=== PATIENT | female | born 1940 | race Caucasian/White ===

== ENCOUNTER 2017-05-27 06:02 | Emergency (ER) | payer OTHER ==
[2017-05-27] MEDS ORDERED: ALBUTEROL 2.5 MG/3 ML NEB SOL ONE (06:50)
[2017-05-27] MEDS ORDERED: METHYLPREDNISOLONE 125 MG INJ ONE (06:50)
[2017-05-27] MEDS ORDERED: IPRATROPIUM BROM 0.5MG/2.5ML ONE (06:51)
[2017-05-27 07:46] LABS: Absolute Lymphocytes (CBC) 2.2 K/uL (0.7-4.9); Absolute Monocytes 0.7 K/uL (0.1-1.3); Absolute Neutrophil 4.9 K/uL (1.8-8.0); Basophils % 0.7 % (0-1.3); Eosinophils % 2.5 % (0-4.4); Hematocrit 40.6 % (36.0-45.0); Lymphocytes % 26.9 % (15.3-44.8); MCH 27.1 pg (27.0-35.0); MCV 82.4 fL (80-100); MPV 9.7 fL (7.6-11.3); Monocytes % 9.3 % (3.3-12.3); RBC Red Blood Cell Count 4.93 M/uL (3.86-4.86)
[2017-05-27 07:49] LABS: Potassium 3.7 mEq/L (3.6-5.0)
--- NOTE | 2017-05-27 09:12 | RAD REPORT ---
EXAM DESCRIPTION: RAD - Chest Pa And Lat (2 Views) - 05/27/2017 7:00 am CLINICAL HISTORY: Cough, shortness of breath. COMPARISON: 04/24/2017 FINDINGS: The lungs are clear. The heart is mildly prominent in size. No displaced fractures. IMPRESSION: No acute or concerning finding suspected.
--- NOTE | 2017-05-27 09:18 | EDPHYS ---
Physician Documentation [facility] Name: Francine Lemons Age: 76 yrs Sex: Female : 1940 Arrival Date: 05/27/2017 Time: 06:07 Bed 14 Private MD: ED Physician Santiago Suarez HPI: 05/27 06:45 This 76 yrs old Female presents to ER via Ambulatory with complaints of jr8 Non-Productive Cough, Breathing Difficulty. 06:45 The patient or guardian reports cough, that is intermittent, described as moderate, jr8 with no sputum, difficulty breathing. Onset: The symptoms/episode began/occurred acutely, today. Severity of symptoms: At their worst the symptoms were moderate, in the emergency department the symptoms are unchanged. Modifying factors: The symptoms are alleviated by nothing, the symptoms are aggravated by nothing. Associated signs and symptoms: The patient has no apparent associated signs or symptoms. It is unknown whether or not the patient has had similar symptoms in the past. The patient has not recently seen a physician. Historical: - Allergies: 06:41 Azithromycin; jd3 06:41 hydrocodone bitartrate (bulk); jd3 06:41 Iodine; jd3 06:41 Vicodin; jd3 - PMHx: 06:41 Anxiety; CHF; Chronic pain; COPD; Diabetes - IDDM; High Cholesterol; Hypertension; jd3 lymphedema; stasis neuropathy; - PSHx: 06:41 Hysterectomy; Tonsillectomy; Appendectomy; DENTAL SURGERY; Hernia repair; jd3 - Immunization history:: Adult Immunizations up to date, Pneumococcal vaccine is up to date, Flu vaccine is up to date. - Social history:: Smoking status: Patient/guardian denies using tobacco, the patient reports quitting approximately 40 years ago. ROS: 06:45 Eyes: Negative for injury, pain, redness, and discharge, ENT: Negative for injury, jr8 pain, and discharge, Neck: Negative for injury, pain, and swelling, Cardiovascular: Negative for chest pain, palpitations, and edema, Abdomen/GI: Negative for abdominal pain, nausea, vomiting, diarrhea, and constipation, Back: Negative for injury and pain, MS/Extremity: Negative for injury and deformity, Skin: Negative for injury, rash, and discoloration, Neuro: Negative for headache, weakness, numbness, tingling, and seizure. 06:45 Respiratory: Positive for cough, shortness of breath, Negative for hemoptysis, orthopnea, pleurisy, wheezing. Exam: 06:45 Eyes: Pupils equal round and reactive to light, extra-ocular motions intact. Lids and jr8 lashes normal. Conjunctiva and sclera are non-icteric and not injected. Cornea within normal limits. Periorbital areas with no swelling, redness, or edema. ENT: Nares patent. No nasal discharge, no septal abnormalities noted. Tympanic membranes are normal and external auditory canals are clear. Oropharynx with no redness, swelling, or masses, exudates, or evidence of obstruction, uvula midline. Mucous membranes moist. Neck: Trachea midline, no thyromegaly or masses palpated, and no cervical lymphadenopathy. Supple, full range of motion without nuchal rigidity, or vertebral point tenderness. No Meningismus. Cardiovascular: Regular rate and rhythm with a normal S1 and S2. No gallops, murmurs, or rubs. Normal PMI, no JVD. No pulse deficits. Respiratory: Lungs have equal breath sounds bilaterally, clear to auscultation and percussion. No rales, rhonchi or wheezes noted. No increased work of breathing, no retractions or nasal flaring. Abdomen/GI: Soft, non-tender, with normal bowel sounds. No distension or tympany. No guarding or rebound. No evidence of tenderness throughout. Back: No spinal tenderness. No costovertebral tenderness. Full range of motion. Skin: Warm, dry with normal turgor. Normal color with no rashes, no lesions, and no evidence of cellulitis. MS/ Extremity: Pulses equal, no cyanosis. Neurovascular intact. Full, normal range of motion. Neuro: Awake and alert, GCS 15, oriented to person, place, time, and situation. Cranial nerves II-XII grossly intact. Motor strength 5/5 in all extremities. Sensory grossly intact. Cerebellar exam normal. Normal gait. Vital Signs: 06:41 BP 130 / 67; Pulse 65; Resp 19 S; Temp 98.2(O); Pulse Ox 96% on R/A; Weight 108.86 kg jd3 (R); Height 5 ft. 3 in. (160.02 cm) (R); Pain 0/10; 07:47 BP 135 / 70; Pulse 66; Resp 18; Pulse Ox 97% on Nebulizer Mask; 09:27 BP 135 / 68; Pulse 65; Resp 18; Pulse Ox 97% on R/A; hj 06:41 Body Mass Index 42.51 (108.86 kg, 160.02 cm) jd3 MDM: 06:15 Patient medically screened. [facility] 09:16 Data reviewed: vital signs, nurses notes, lab test result(s), radiologic studies, plain jr8 films, and as a result, I will discharge patient. Data interpreted: Pulse oximetry: on room air is 97 %. Interpretation: normal. Counseling: I had a detailed discussion with the patient and/or guardian regarding: the historical points, exam findings, and any diagnostic results supporting the discharge/admit diagnosis, lab results, radiology results, the need for outpatient follow up, a family practitioner, to return to the emergency department if symptoms worsen or persist or if there are any questions or concerns that arise at home. Response to treatment: the patient's symptoms have mildly improved after treatment. 05/27 06:38 Order name: CBC with Diff; Complete Time: 08:15 [facility] 05/27 06:38 Order name: Basic Metabolic Panel; Complete Time: 07:54 8 05/27 06:38 Order name: XRAY Chest Pa And Lat (2 Views); Complete Time: 09:14 [facility] 05/27 07:34 Order name: Urine Dipstick--Ancillary (enter results) [facility] 05/27 06:38 Order name: IV; Complete Time: 07:20 [facility] Administered Medications: 07:00 Drug: Albuterol - atroVENT (3:1) (2.5 mg - 0.5 mg) 3 ml Route: Nebulizer; 07:25 Follow up: Response: No adverse reaction 07:00 Drug: SOLU-Medrol 125 mg Route: IVP; Site: right forearm; 07:25 Follow up: Response: No adverse reaction Disposition: 05/27/17 09:17 Discharged to Home. Impression: Cough. - Condition is Stable. - Discharge Instructions: Cough, Adult. - Prescriptions for PROMETHAZINE/DEXTROMETHORPHAN - take 5 milliliter by ORAL route every 6 hours As needed Max 30ml/24h; 120 milliliter. - Medication Reconciliation Form, Thank You Letter, Antibiotic Education, Prescription Opioid Use form. - Follow up: Private Physician; When: 2 - 3 days; Reason: Recheck today's complaints, Continuance of care, Re-evaluation by your physician. - Problem is new. - Symptoms have improved. Addendum: 05/28/2017 19:02 Co-signature as Attending Physician, Santiago Suarez MD I agree with the assessment and c dozier plan of care. Signatures: Dispatcher [employer] EDMI Santiago Suarez MD MD cha Roszak, Josh, PA PA jr8 Juvenal Rodriguez RN RN Raimundo Delgadillo RN RN jd3
--- NOTE | 2017-05-27 09:18 | ER ---
Nurse's Notes [facility] Name: Frnacine Lemons Age: 76 yrs Sex: Female : 1940 Arrival Date: 05/27/2017 Time: 06:07 Bed 14 Private MD: Diagnosis: Cough Presentation: 05/27 06:38 Presenting complaint: Patient states: "I'm having a non-productive, dry cough with jd3 shortness of breath". Transition of care: patient was not received from another setting of care. Onset of symptoms was May 27, 2017. Care prior to arrival: None. 06:38 Method Of Arrival: Ambulatory jd3 06:38 Acuity: AURELIO 3 jd3 06:43 Mechanism of Injury: No Mechanism of Injury. jd3 Triage Assessment: 06:43 Respiratory: Onset: The symptoms/episode began/occurred this morning, the patient has jd3 mild shortness of breath. Historical: - Allergies: 06:41 Azithromycin; jd3 06:41 hydrocodone bitartrate (bulk); jd3 06:41 Iodine; jd3 06:41 Vicodin; jd3 - PMHx: 06:41 Anxiety; CHF; Chronic pain; COPD; Diabetes - IDDM; High Cholesterol; Hypertension; jd3 lymphedema; stasis neuropathy; - PSHx: 06:41 Hysterectomy; Tonsillectomy; Appendectomy; DENTAL SURGERY; Hernia repair; jd3 - Immunization history:: Adult Immunizations up to date, Pneumococcal vaccine is up to date, Flu vaccine is up to date. - Social history:: Smoking status: Patient/guardian denies using tobacco, the patient reports quitting approximately 40 years ago. Screenin:42 Abuse screen: Denies threats or abuse. Nutritional screening: No deficits noted. jd3 Tuberculosis screening: No symptoms or risk factors identified. Fall Risk None identified. Assessment: 06:25 General: Appears in no apparent distress. uncomfortable, Behavior is calm, cooperative, jd3 appropriate for age. Pain: Denies pain. Neuro: Level of Consciousness is awake, alert, obeys commands, Oriented to person, place, time, situation. Cardiovascular: Heart tones S1 S2 present Capillary refill < 3 seconds Patient's skin is warm and dry. Respiratory: Reports cough that is non-productive, dry, persistent Airway is patent Respiratory effort is even, unlabored, Respiratory pattern is regular, symmetrical, Breath sounds are clear bilaterally. GI: Abdomen is round Patient currently denies abdominal pain, diarrhea, nausea, vomiting. : No signs and/or symptoms were reported regarding the genitourinary system. EENT: No signs and/or symptoms were reported regarding the EENT system. Derm: Skin is intact, Skin is dry, Skin is normal, Skin temperature is warm. Musculoskeletal: Circulation, motion, and sensation intact. Range of motion: intact in all extremities. 07:00 General: Appears in no apparent distress. uncomfortable, obese, Behavior is calm, hj cooperative, appropriate for age. Pain: Denies pain. Neuro: Level of Consciousness is awake, alert, obeys commands, Oriented to person, place, time, situation, Appropriate for age. Cardiovascular: Heart tones S1 S2 present Capillary refill < 3 seconds Patient's skin is warm and dry. Respiratory: Reports cough that is non-productive, persistent Airway is patent Respiratory effort is even, unlabored, Respiratory pattern is regular, symmetrical, GI: Abdomen is non-distended, obese. : No signs and/or symptoms were reported regarding the genitourinary system. EENT: No signs and/or symptoms were reported regarding the EENT system. Derm: No signs and/or symptoms reported regarding the dermatologic system. Musculoskeletal: No signs and/or symptoms reported regarding the musculoskeletal system. 07:46 Reassessment: on breathing tx;. hj Vital Signs: 06:41 BP 130 / 67; Pulse 65; Resp 19 S; Temp 98.2(O); Pulse Ox 96% on R/A; Weight 108.86 kg jd3 (R); Height 5 ft. 3 in. (160.02 cm) (R); Pain 0/10; 07:47 BP 135 / 70; Pulse 66; Resp 18; Pulse Ox 97% on Nebulizer Mask; hj 09:27 BP 135 / 68; Pulse 65; Resp 18; Pulse Ox 97% on R/A; hj 06:41 Body Mass Index 42.51 (108.86 kg, 160.02 cm) jd3 ED Course: 06:07 Patient arrived in ED. do 06:14 Fede Garza PA is PHCP. jr8 06:15 Santiago Suarez MD is Attending Physician. jr8 06:25 Raimundo Delgadillo RN is Primary Nurse. jd3 06:39 Triage completed. jd3 06:42 Arm band placed on. jd3 06:42 Patient has correct armband on for positive identification. Bed in low position. Call jd3 light in reach. 06:58 Patient moved to radiology via wheelchair. kw 06:58 X-ray completed. Patient tolerated procedure well. kw 06:58 Patient moved back from radiology. kw 06:59 XRAY Chest Pa And Lat (2 Views) In Process Unspecified. EDMS 07:05 Report given to Juvenal DAIGLE. jd3 09:26 No provider procedures requiring assistance completed. IV discontinued, intact, hj bleeding controlled, No redness/swelling at site. Pressure dressing applied. Administered Medications: 07:00 Drug: Albuterol - atroVENT (3:1) (2.5 mg - 0.5 mg) 3 ml Route: Nebulizer; hj 07:25 Follow up: Response: No adverse reaction hj 07:00 Drug: SOLU-Medrol 125 mg Route: IVP; Site: right forearm; hj 07:25 Follow up: Response: No adverse reaction hj Outcome: 09:17 Discharge ordered by . mary 09:27 Discharged to home ambulatory. hj 09:27 Condition: stable 09:27 Discharge instructions given to patient, Instructed on discharge instructions, follow up and referral plans. medication usage, Demonstrated understanding of instructions, follow-up care, medications, Prescriptions given X 1. 09:32 Patient left the ED. hj Signatures: Dispatcher [employer] EDCT Cony Hernandez Josh, PA PA jrJuvenal Murray RN RN hj Ogletree, Danielle do Davies, Jonathon, RN RN jd3 Corrections: (The following items were deleted from the chart) 06:44 06:25 Respiratory: Reports cough that is non-productive, dry, persistent since 05/24/17 jd3 Airway is patent Respiratory effort is even, unlabored, Respiratory pattern is regular, symmetrical, Breath sounds are clear bilaterally. jd3
[2017-05-27 09:37] VITALS: TEMP 98.2
[2017-05-27 09:38] VITALS: O2SAT 97
[2017-05-27 09:39] VITALS: BP 135/68
[2017-05-27 10:01] LABS: Urine Blood NEGATIVE (NEG); Urine Glucose 1+ (NEG); Urine Protein NEGATIVE (NEG)
== END 2017-05-27 09:32 | disposition home or self-care (01) ==
LOC: ER 06:02
DX: R05 Cough (principal); I10 Essential (primary) hypertension; I50.9 Heart failure, unspecified; J44.9 Chronic obstructive pulmonary disease, unspecified; Z88.3 Allergy status to other anti-infective agents; Z88.5 Allergy status to narcotic agent; Z91.048 Other nonmedicinal substance allergy status
CPT/HCPCS: 36415; 71046; 80048; 81003; 85025; 94640; 96374; 99284; J2930

== ENCOUNTER 2017-10-31 18:13 | Observation (INO) | payer OTHER ==
[2017-10-31] MEDS ORDERED: ALBUTEROL 2.5 MG/3 ML NEB SOL ONE (18:41)
[2017-10-31] MEDS ORDERED: IPRATROPIUM BROM 0.5MG/2.5ML ONE (18:41)
[2017-10-31] MEDS ORDERED: NA CHLORIDE 0.9% 1,000 ML ONE ×2 (18:41→19:50)
[2017-10-31] MEDS ORDERED: Levofloxacin500mg IV 500 MG/100 ML BAG IV ONE (18:55)
[2017-10-31] MEDS ORDERED: METHYLPREDNISOLONE 125 MG INJ ONE (18:55)
[2017-10-31 18:59] LABS: Absolute Lymphocytes (CBC) 2.5 K/uL (0.7-4.9); Absolute Monocytes 0.7 K/uL (0.1-1.3); Absolute Neutrophil 4.9 K/uL (1.8-8.0); Basophils % 1.2 % (0-1.3); Eosinophils % 3.5 % (0-4.4); Hematocrit 41.5 % (36.0-45.0); Lymphocytes % 29.1 % (15.3-44.8); MCH 28.2 pg (27.0-35.0); MCV 82.4 fL (80-100); MPV 9.4 fL (7.6-11.3); Monocytes % 8.7 % (3.3-12.3); RBC Red Blood Cell Count 5.04 M/uL (3.86-4.86)
[2017-10-31 19:02] LABS: Protime INR 1.03
--- NOTE | 2017-10-31 19:21 | ER ---
Nurse's Notes [facility] Name: Francine Lemons Age: 77 yrs Sex: Female : 1940 Arrival Date: 10/31/2017 Time: 18:15 Bed 28 Private MD: Gareth Renae Diagnosis: Dyspnea;Chronic obstructive pulmonary disease with (acute) exacerbation-mild;Type 1 diabetes mellitus;Obesity, unspecified;Palpitations;Hypokalemia Presentation: 10/31 18:21 Presenting complaint: Patient states: I have started having a cough and not feeling la1 well today, also a little SOB. Transition of care: patient was not received from another setting of care. Onset of symptoms was October 31, 2017. Risk Assessment: Do you want to hurt yourself or someone else? Patient reports no desire to harm self or others. Initial Sepsis Screen: Does the patient meet any 2 criteria? No. Patient's initial sepsis screen is negative. Does the patient have a suspected source of infection? No. Patient's initial sepsis screen is negative. Care prior to arrival: None. 18:21 Method Of Arrival: Ambulatory la1 18:21 Acuity: AURELIO 3 la1 Triage Assessment: 19:00 General: Appears in no apparent distress. comfortable, Behavior is calm, cooperative. rv Respiratory: Reports shortness of breath at rest Onset: The symptoms/episode began/occurred gradually, the patient has mild shortness of breath. Historical: - Allergies: 18:22 Azithromycin; la1 18:22 hydrocodone bitartrate (bulk); la1 18:22 Iodine; la1 18:22 Vicodin; la1 - PMHx: 18:22 Anxiety; CHF; Chronic pain; COPD; Diabetes - IDDM; High Cholesterol; Hypertension; la1 lymphedema; stasis neuropathy; - Immunization history:: Adult Immunizations up to date. - Social history:: Smoking status: Patient/guardian denies using tobacco. - Ebola Screening: : No symptoms or risks identified at this time. Screenin:00 Abuse screen: Denies threats or abuse. Denies injuries from another. Nutritional rv screening: No deficits noted. Tuberculosis screening: No symptoms or risk factors identified. Fall Risk None identified. Assessment: 18:58 General: Appears in no apparent distress. comfortable, Behavior is calm, cooperative. rv Pain: Denies pain. Neuro: Level of Consciousness is awake, alert, obeys commands, Oriented to person, place, time, situation. Cardiovascular: Capillary refill < 3 seconds Rhythm is regular. Respiratory: Airway is patent Respiratory effort is even, Breath sounds are clear bilaterally. GI: No signs and/or symptoms were reported involving the gastrointestinal system. : No signs and/or symptoms were reported regarding the genitourinary system. EENT: No signs and/or symptoms were reported regarding the EENT system. Derm: Skin is intact. 20:22 Reassessment: Patient appears in no apparent distress at this time. Patient and/or rv family updated on plan of care and expected duration. Pain level reassessed. Patient is alert, oriented x 3, equal unlabored respirations, skin warm/dry/pink. Vital Signs: 18:22 BP 148 / 68; Pulse 74; Resp 16; Temp 97.7; Pulse Ox 95% on R/A; Weight 110.22 kg; la1 Height 5 ft. 7 in. (170.18 cm); 20:04 BP 139 / 116; Pulse 76; Pulse Ox 95% on R/A; rv 20:22 BP 145 / 87; Pulse 78; Pulse Ox 95% on R/A; rv 18:22 Body Mass Index 38.06 (110.22 kg, 170.18 cm) la1 ED Course: 18:15 Patient arrived in ED. sb2 18:16 Gareth Renae MD is Private Physician. sb2 18:22 Triage completed. la1 18:22 Arm band placed on left wrist. la1 18:23 Santiago Suarez MD is Attending Physician. williams 18:45 Inserted saline lock: 20 gauge in right antecubital area, using aseptic technique. rv 19:00 Patient has correct armband on for positive identification. Placed in gown. Bed in low rv position. Call light in reach. Side rails up X 1. electronic device monitor on. Pulse ox on. NIBP on. 19:14 XRAY Chest (1 view) In Process Unspecified. EDMS 19:20 Daniel Bajwa MD is Hospitalizing Provider. williams 19:29 Notified ED physician of a critical lab result(s). potassium of 2.9. fc 20:41 No provider procedures requiring assistance completed. Patient admitted, IV remains in rv place. intact. Administered Medications: Discontinued: NS 0.9% 1000 ml IV at 125 ml/hr continuous 18:40 Drug: Albuterol - atroVENT (3:1) (2.5 mg - 0.5 mg) 3 ml Route: Nebulizer; rv 20:41 Follow up: Response: No adverse reaction rv 18:45 Drug: NS 0.9% 1000 ml Route: IV; Rate: 125 ml/hr; Site: right antecubital; rv 20:41 Follow up: IV Status: Order to discontinue infusion rv 18:45 Drug: SOLU-Medrol 125 mg Route: IVP; Site: right antecubital; rv 20:41 Follow up: Response: No adverse reaction rv 20:02 Drug: Potassium Effervescent Tablet 50 mEq Route: PO; rv 20:40 Follow up: Response: No adverse reaction rv 20:02 Drug: NS 0.9% with KCl 20 mEq/L 1000 ml Route: IV; Rate: 125 ml/hr; Site: right rv antecubital; 20:40 Follow up: IV Status: Infusion continued upon admission rv 20:03 Drug: levofloxacin 500 mg Volume: 100 ml; Route: IVPB; Infused Over: 60 mins; Site: rv right antecubital; 20:40 Follow up: Response: No adverse reaction; IV Status: Infusion continued upon admission rv Outcome: 19:21 Decision to Hospitalize by Provider. williams 20:42 Admitted to Med/surg accompanied by tech, via wheelchair, room 231, with chart, Report rv called to ANNABELLA RN 20:42 Condition: good 20:45 Patient left the ED. rv Signatures: Dispatcher [employer] EDSantiago Cantrell MD MD cha Chretien, Felicia RN RN Bharat Caba RN RN la1 Bere Menezes Ronaldo, RN RN rv
--- NOTE | 2017-10-31 19:21 | EDPHYS ---
Physician Documentation [facility] Name: Francine Lemons Age: 77 yrs Sex: Female : 1940 Arrival Date: 10/31/2017 Time: 18:15 Bed 28 Private MD: Gareth Renae ED Physician Santiago Suarez HPI: 10/31 18:32 This 77 yrs old Female presents to ER via Ambulatory with complaints of williams Breathing Difficulty, Palpitations, Cough. 18:32 The patient has shortness of breath at rest, with light activity. Onset: The williams symptoms/episode began/occurred 3 day(s) ago. Duration: The symptoms are continuous, and are steadily getting worse. The patient's shortness of breath has no apparent modifying factors. Associated signs and symptoms: The patient has no apparent associated signs or symptoms. Severity of symptoms: At their worst the symptoms were mild. The patient has not experienced similar symptoms in the past. Historical: - Allergies: 18:22 Azithromycin; la1 18:22 hydrocodone bitartrate (bulk); la1 18:22 Iodine; la1 18:22 Vicodin; la1 - PMHx: 18:22 Anxiety; CHF; Chronic pain; COPD; Diabetes - IDDM; High Cholesterol; Hypertension; la1 lymphedema; stasis neuropathy; - Immunization history:: Adult Immunizations up to date. - Social history:: Smoking status: Patient/guardian denies using tobacco. - Ebola Screening: : No symptoms or risks identified at this time. ROS: 18:33 Constitutional: Negative for fever, chills, and weight loss, Eyes: Negative for injury, williams pain, redness, and discharge, ENT: Negative for injury, pain, and discharge, Neck: Negative for injury, pain, and swelling, Cardiovascular: Negative for chest pain, palpitations, and edema, Abdomen/GI: Negative for abdominal pain, nausea, vomiting, diarrhea, and constipation, Back: Negative for injury and pain, : Negative for injury, bleeding, discharge, and swelling, Skin: Negative for injury, rash, and discoloration, Neuro: Negative for headache, weakness, numbness, tingling, and seizure, Psych: Negative for depression, anxiety, suicide ideation, homicidal ideation, and hallucinations, Allergy/Immunology: Negative for hives, rash, and allergies, Endocrine: Negative for neck swelling, polydipsia, polyuria, polyphagia, and marked weight changes, Hematologic/Lymphatic: Negative for swollen nodes, abnormal bleeding, and unusual bruising. 18:33 Cardiovascular: Positive for palpitations. 18:33 Respiratory: Positive for cough, shortness of breath. 18:33 MS/extremity: Positive for swelling, of the right leg and left leg. Exam: 18:33 Constitutional: This is a well developed, well nourished patient who is awake, alert, williams and in no acute distress. Head/Face: Normocephalic, atraumatic. Eyes: Pupils equal round and reactive to light, extra-ocular motions intact. Lids and lashes normal. Conjunctiva and sclera are non-icteric and not injected. Cornea within normal limits. Periorbital areas with no swelling, redness, or edema. ENT: Nares patent. No nasal discharge, no septal abnormalities noted. Tympanic membranes are normal and external auditory canals are clear. Oropharynx with no redness, swelling, or masses, exudates, or evidence of obstruction, uvula midline. Mucous membranes moist. Neck: Trachea midline, no thyromegaly or masses palpated, and no cervical lymphadenopathy. Supple, full range of motion without nuchal rigidity, or vertebral point tenderness. No Meningismus. Chest/axilla: Normal chest wall appearance and motion. Nontender with no deformity. No lesions are appreciated. Cardiovascular: Regular rate and rhythm with a normal S1 and S2. No gallops, murmurs, or rubs. Normal PMI, no JVD. No pulse deficits. Respiratory: Lungs have equal breath sounds bilaterally, clear to auscultation and percussion. No rales, rhonchi or wheezes noted. No increased work of breathing, no retractions or nasal flaring. Abdomen/GI: Soft, non-tender, with normal bowel sounds. No distension or tympany. No guarding or rebound. No evidence of tenderness throughout. Back: No spinal tenderness. No costovertebral tenderness. Full range of motion. Skin: Warm, dry with normal turgor. Normal color with no rashes, no lesions, and no evidence of cellulitis. Neuro: Awake and alert, GCS 15, oriented to person, place, time, and situation. Cranial nerves II-XII grossly intact. Motor strength 5/5 in all extremities. Sensory grossly intact. Cerebellar exam normal. Normal gait. Psych: Awake, alert, with orientation to person, place and time. Behavior, mood, and affect are within normal limits. 18:33 Musculoskeletal/extremity: ROM: no acute changes, intact in all extremities, Circulation is intact in all extremities. Pulses: Sensation intact. Compartment Syndrome exam of affected extremity: is normal. DVT Exam: no pain, no tenderness, negative Homans' sign noted on exam, no appreciated bluish discoloration, no erythema, no increased warmth, swelling. Vital Signs: 18:22 BP 148 / 68; Pulse 74; Resp 16; Temp 97.7; Pulse Ox 95% on R/A; Weight 110.22 kg; la1 Height 5 ft. 7 in. (170.18 cm); 20:04 BP 139 / 116; Pulse 76; Pulse Ox 95% on R/A; rv 20:22 BP 145 / 87; Pulse 78; Pulse Ox 95% on R/A; rv 18:22 Body Mass Index 38.06 (110.22 kg, 170.18 cm) [facility] MDM: 18:23 Patient medically screened. [facility] 18:34 Data reviewed: vital signs, nurses notes, lab test result(s), EKG, radiologic studies, williams plain films. 10/31 18:32 Order name: Basic Metabolic Panel; Complete Time: 19:33 [facility] 10/31 18:32 Order name: CBC with Diff; Complete Time: 19:11 [facility] 10/31 18:32 Order name: LFT's; Complete Time: 19:33 [facility] 10/31 18:32 Order name: Magnesium; Complete Time: 19:33 [facility] 10/31 18:32 Order name: NT PRO-BNP; Complete Time: 19:33 [facility] 10/31 18:32 Order name: PT-INR; Complete Time: 19:11 [facility] 10/31 18:32 Order name: Troponin (emerg Dept Use Only); Complete Time: 19:33 [facility] 10/31 18:32 Order name: XRAY Chest (1 view) [facility] 10/31 18:32 Order name: Blood Culture Adult (2) [facility] 10/31 18:32 Order name: TSH; Complete Time: 19:33 [facility] 10/31 18:32 Order name: D-Dimer; Complete Time: 19:11 [facility] 10/31 19:44 Order name: Potassium EDMS 10/31 18:32 Order name: EKG; Complete Time: 18:32 [facility] 10/31 18:32 Order name: Cardiac monitoring; Complete Time: 20:04 [facility] 10/31 18:32 Order name: EKG - Nurse/Tech; Complete Time: 19:30 [facility] 10/31 18:32 Order name: IV Saline Lock; Complete Time: 20:04 [facility] 10/31 18:32 Order name: Labs collected and sent; Complete Time: 20:04 [facility] 10/31 18:32 Order name: O2 Per Protocol; Complete Time: 20:04 [facility] 10/31 18:32 Order name: O2 Sat Monitoring; Complete Time: 20:04 [facility] Administered Medications: Discontinued: NS 0.9% 1000 ml IV at 125 ml/hr continuous 18:40 Drug: Albuterol - atroVENT (3:1) (2.5 mg - 0.5 mg) 3 ml Route: Nebulizer; rv 20:41 Follow up: Response: No adverse reaction rv 18:45 Drug: NS 0.9% 1000 ml Route: IV; Rate: 125 ml/hr; Site: right antecubital; rv 20:41 Follow up: IV Status: Order to discontinue infusion rv 18:45 Drug: SOLU-Medrol 125 mg Route: IVP; Site: right antecubital; rv 20:41 Follow up: Response: No adverse reaction rv 20:02 Drug: Potassium Effervescent Tablet 50 mEq Route: PO; rv 20:40 Follow up: Response: No adverse reaction rv 20:02 Drug: NS 0.9% with KCl 20 mEq/L 1000 ml Route: IV; Rate: 125 ml/hr; Site: right rv antecubital; 20:40 Follow up: IV Status: Infusion continued upon admission rv 20:03 Drug: levofloxacin 500 mg Volume: 100 ml; Route: IVPB; Infused Over: 60 mins; Site: rv right antecubital; 20:40 Follow up: Response: No adverse reaction; IV Status: Infusion continued upon admission rv Disposition: 10/31/17 19:21 Hospitalization ordered by Daniel Bajwa for Observation. Preliminary diagnosis are Dyspnea, Chronic obstructive pulmonary disease with (acute) exacerbation - mild, Type 1 diabetes mellitus, Obesity, unspecified, Palpitations, Hypokalemia. - Bed requested for Telemetry/MedSurg (observation). - Status is Observation. rv - Condition is Stable. - Problem is new. - Symptoms have improved. UTI on Admission? No Signatures: Dispatcher [employer] EDMS Allie Calderon RN RN Santiago Jones MD MD cha Attema, Lee RN RN laWalter Askew RN RN rv Corrections: (The following items were deleted from the chart) 19:35 19:21 Hospitalization Ordered by Daniel Bajwa MD for Observation. Preliminary williams diagnosis is Dyspnea; Chronic obstructive pulmonary disease with (acute) exacerbation - mild; Type 1 diabetes mellitus; Obesity, unspecified; Palpitations. Bed requested for Telemetry/MedSurg (observation). Status is Observation. Condition is Stable. Problem is new. Symptoms have improved. UTI on Admission? No. williams 19:39 19:35 10/31/2017 19:21 Hospitalization Ordered by Daniel Bajwa MD for Observation. kl Preliminary diagnosis is Dyspnea; Chronic obstructive pulmonary disease with (acute) exacerbation - mild; Type 1 diabetes mellitus; Obesity, unspecified; Palpitations; Hypokalemia. Bed requested for Telemetry/MedSurg (observation). Status is Observation. Condition is Stable. Problem is new. Symptoms have improved. UTI on Admission? No. williams 20:45 19:39 10/31/2017 19:21 Hospitalization Ordered by Daniel Bajwa MD for Observation. rv Preliminary diagnosis is Dyspnea; Chronic obstructive pulmonary disease with (acute) exacerbation - mild; Type 1 diabetes mellitus; Obesity, unspecified; Palpitations; Hypokalemia. Bed requested for Telemetry/MedSurg (observation). Status is Observation. Condition is Stable. Problem is new. Symptoms have improved. UTI on Admission? No. shani
[2017-10-31] MEDS ORDERED: GLUCAGON 1 MG/VIAL IM PRN (19:23)
[2017-10-31] MEDS ORDERED: D50W 25 GM/50 ML SYRINGE IV PRN (19:23)
[2017-10-31 19:28] LABS: ALT/SGPT 20 U/L (12-78); AST/SGOT 14 U/L (15-37); Albumin 3.3 g/dL (3.4-5.0); Alkaline Phosphatase 112 U/L (45-117); BUN Blood Urea Nitrogen 11 mg/dL (7-18); Bicarbonate 31 mmol/L (21-32); Bilirubin Direct 0.1 mg/dL (0-0.2); Bilirubin Total 0.5 mg/dL (0.2-1.0); Glucose Level 142 mg/dL (74-106); Magnesium 1.8 mg/dL (1.8-2.4); NT PRO-BNP 74 pg/mL (<450); Protein, Total 6.7 g/dL (6.4-8.2); Sodium Level 141 mmol/L (136-145); Troponin (Emerg Dept Use Only) < 0.02 ng/mL (0.0-0.045)
[2017-10-31 19:30] LABS: Potassium 2.9 mmol/L (3.5-5.1)
[2017-10-31] MEDS ORDERED: KCL 20 MEQ/100 mL IVPB 20 MEQ/100 ML BAG IV ONE (19:50)
[2017-10-31] MEDS ORDERED: POTASSIUM 25 MEQ EFFERV TAB ONE (19:50)
[2017-10-31] MEDS ORDERED: POTASSIUM CL 40 MEQ in NA CHLORIDE 0.9% 500 ML IV SCH (20:00)
[2017-10-31] MEDS ORDERED: ONDANSETRON 4 MG/2 ML VIAL IV PRN (20:22)
[2017-10-31] MEDS ORDERED: ACETAMINOPHEN 500 MG TAB PO PRN (20:22)
[2017-10-31] MEDS ORDERED: ALBUTEROL 2.5 MG/3 ML NEB SOL NEB PRN (20:22)
[2017-10-31] MEDS ORDERED: IPRATROPIUM BROM 0.5MG/2.5ML NEB PRN (20:22)
--- NOTE | 2017-10-31 20:31 | P.HP ---
Certification for Inpatient Patient admitted to: Observation With expected LOS: <2 Midnights Practitioner: I am a practitioner with admitting privileges, knowledge of patient current condition, hospital course, and medical plan of care. Services: Services provided to patient in accordance with Admission requirements found in Title 42 Section 412.3 of the Code of Federal Regulations Patient History Date of Service: 10/31/17 Reason for admission: COPD exacerbation History of Present Illness: Ms Lemons is a 77-year-old woman with history of hypertension, dyslipidemia, types 2 diabetes mellitus, COPD, who came to ED complaining of shortness of breath and cough starting this morning. He also complained of skipping beats in her heart. She denied any fever, chills or sweating episodes. Her cough is mostly dry however sometimes she has whitish secretion. At presentation the patient was in no distress, O2 sat 95% on room air, HR 74 bpm. Allergies iodine [Iodine] Allergy (Mild, Verified 04/01/11 14:51) Hives azithromycin [From Zithromax Z-Yousuf] Allergy (Verified 04/17/12 09:52) Itching/Hives/Rash hydrocodone bitartrate [From Vicodin] Allergy (Unverified 04/12/17 17:55) Unknown hydro Allergy (Uncoded 10/30/15 00:33) Unknown hydroc Allergy (Uncoded 11/08/15 19:11) Unknown hydroco Allergy (Uncoded 11/04/15 21:39) Unknown iodine Allergy (Uncoded 05/10/14 11:34) Unknown IODINE; IODINE CONTAINING Allergy (Uncoded 07/12/13 19:54) Unknown Home medications list reviewed: Yes Home Medications: Alprazolam 5 mg PO TID 04/01/11 Apidra 10 units SQ DAILY 04/01/11 Aspirin 325 mg PO DAILY 04/01/11 Carvedilol 25 mg PO BID 04/01/11 Glipizide 10 mg PO BID 04/01/11 Hydrocodone Bit/Acetaminophen 10 mg PO TID PRN 04/01/11 Lantus 50 units SQ DAILY 04/01/11 Losartan Potassium 100 mg PO DAILY 04/01/11 Simvastatin 80 mg PO DAILY 04/01/11 Tekturna Hct 300-12.5 mg Tab DAILY 04/01/11 - Past Medical/Surgical History Diabetic: Yes -: COPD -: Diabetes mellitus types 2 -: Hypertension -: Dyslipidemia -: Lymphedema Past Surgical History: Reviewed- Non-Contributory - Family History Family History: Reviewed- Non-Contributory - Social History Smoking Status: Former smoker CD- Drugs: No Place of Residence: Home Review of Systems 10-point ROS is otherwise unremarkable Physical Examination - Physical Exam General: Alert, In no apparent distress HEENT: Atraumatic, PERRLA, Mucous membr. moist/pink, EOMI, Sclerae nonicteric Neck: Supple, 2+ carotid pulse no bruit, No LAD, Without JVD or thyroid abnormality Respiratory: Normal air movement, Expiratory wheezes (Mild bilateral wheezing) Cardiovascular: Regular rate/rhythm, Normal S1 S2 Gastrointestinal: Normal bowel sounds, No tenderness Musculoskeletal: No tenderness, Swelling (Bilateral lower extremity edema 2+) Integumentary: No rashes Neurological: Normal speech, Normal strength at 5/5 x4 extr, Normal tone, Normal affect Lymphatics: No axilla or inguinal lymphadenopathy - Studies Laboratory Data (last 24 hrs) 10/31/17 18:45: PT 12.2, INR 1.03 10/31/17 18:45: WBC 8.4, Hgb 14.2, Hct 41.5, Plt Count 251 10/31/17 18:45: Sodium 141, Potassium 2.9 L*, BUN 11, Creatinine 0.90, Glucose 142 H, Magnesium 1.8, Total Bilirubin 0.5, AST 14 L, ALT 20, Alkaline Phosphatase 112 Assessment and Plan - Problems (Diagnosis) (1) Diabetes mellitus Current Visit: Yes Status: Acute Qualifiers: Diabetes mellitus type: type 2 Diabetes mellitus alf insulin use: with terminal gauger supervisor use Diabetes mellitus complication status: with unspecified complications Qualified Code(s): E11.8 - Type 2 diabetes mellitus with unspecified complications; Z79.4 - keno terminal operator (current) use of insulin (2) COPD exacerbation Current Visit: Yes Status: Acute (3) Hypertension Current Visit: Yes Status: Acute Qualifiers: Hypertension type: essential hypertension Qualified Code(s): I10 - Essential (primary) hypertension (4) Chronic acquired lymphedema Current Visit: Yes Status: Acute - Plan The patient will be admitted to the hospital due to COPD exacerbation. WBC within normal limits. Will order procalcitonin and lactic acid. Chest-x-ray report still pending due to technical issues. Will replace potassium by protocol. She may go home in a.m. if symptoms gets better are not potassium level is within normal limits. - Advance Directives Does patient have a Living Will: No Does patient have a Durable POA for Healthcare: No - Code Status/Comfort Care Code Status Assessed: Yes Code Status: Full Code
[2017-10-31] MEDS ORDERED: MAGNESIUM SULFATE 1 gm IVPB 1 GM/100 ML BAG IV ONE (20:49)
[2017-10-31] MEDS: INSULIN -REGULAR HUMAN 50 UNIT/0.5 ML ML SQ SCH (21:00)
[2017-10-31] MEDS: HYDROCODONE/APAP 7.5/325 MG TAB PO PRN (23:24)
[2017-11-01] MEDS: GUAIFENESIN/CODEINE 5ML UCUP PO PRN ×2 (00:45→08:33)
[2017-11-01] MEDS: METHYLPREDNISOLONE 40 MG INJ IV SCH ×2 (00:47→08:33)
[2017-11-01 03:29] LABS: Urine Appearance CLEAR; Urine Bilirubin NEGATIVE (NEG); Urine Blood NEGATIVE (NEG); Urine Color YELLOW; Urine Glucose 2+ (NEG); Urine Protein NEGATIVE (NEG); Urine Urobilinogen 0.2 mg/dL (0.2-1.0); Urine pH 7.5 (5.0-7.0)
[2017-11-01 03:30] LABS: Urine Microscopic Reflex NO UMIC
[2017-11-01 06:01] LABS: Absolute Lymphocytes (CBC) 1.1 K/uL (0.7-4.9); Absolute Monocytes 0.1 K/uL (0.1-1.3); Absolute Neutrophil 7.7 K/uL (1.8-8.0); Basophils % 0.3 % (0-1.3); Eosinophils % 0.1 % (0-4.4); Hematocrit 43.5 % (36.0-45.0); Lymphocytes % 11.9 % (15.3-44.8); MCH 28.4 pg (27.0-35.0); MCV 84.1 fL (80-100); MPV 9.3 fL (7.6-11.3); Monocytes % 0.8 % (3.3-12.3); RBC Red Blood Cell Count 5.18 M/uL (3.86-4.86)
[2017-11-01] MEDS: HYDROCODONE/APAP 7.5/325 MG TAB PO PRN ×3 (06:03→18:17)
[2017-11-01 06:16] LABS: Magnesium 2.1 mg/dL (1.8-2.4); Potassium 3.9 mmol/L (3.5-5.1)
[2017-11-01] MEDS ORDERED: POTASSIUM 25 MEQ EFFERV TAB PO ONE (08:00)
[2017-11-01] MEDS: INSULIN -REGULAR HUMAN 50 UNIT/0.5 ML ML SQ SCH ×4 (08:32→20:50)
[2017-11-01] MEDS: ENOXAPARIN 40 MG/0.4 ML SQ SCH (08:33)
--- NOTE | 2017-11-01 08:35 | RAD REPORT ---
EXAM DESCRIPTION: RAD - Chest Single View - 10/31/2017 11:30 pm CLINICAL HISTORY: COPD, cough The final report was delayed due to PACs and/or Fluency technical problems that existed at the time of the study or during expected/usual dictation time period. It is unknown if a verbal report was pro vided prior to this dictation. COMPARISON: May 2017 TECHNIQUE: AP portable chest image was obtained 1900 hours . FINDINGS: No mass, consolidation or failure/ volume overload findings. Lung markings are mildly prom inent but not clearly different. Left costophrenic angle is obscured by body habitus and film techniq ue artifacts. Heart and vasculature are normal. No measurable pleural effusion and no pneumothorax. N o gross bony abnormality seen. No acute aortic findings suspected. IMPRESSION: No acute cardiopulmonary process. No suspicious change from comparison. Continued symptoms can be further addressed with two view imagi ng or CT chest imaging if the patient cannot tolerate standard two view examination.
[2017-11-01 09:39] LABS: Blood Morphology Comment NOT SEEN (NOT SEEN); Platelet Estimate ADEQ
--- NOTE | 2017-11-01 11:05 | P.PN ---
Subjective Date of Service: 11/01/17 Chief Complaint: Palpitations Patient is 77 years of age admitted with skipped heartbeats she has had this since the age of 22 and had resolved started reoccurring again also as been complaining of some shortness of breath and cough for the past month as tree of obstructive airways disease patient quit smoking in her 20s takes a nebulizer at home she recently had a cardiac catheterization diagnosed with congestive heart failure this seen by carpet tile layer in [place] Review of Systems Unremarkable Physical Examination - Vital Signs Temperature: 97.6 F Blood Pressure: 157/74 Pulse: 76 Respirations: 20 Pulse Ox (%): 94 - Physical Exam General: Alert, Oriented x3 Neck: Supple Respiratory: Clear to auscultation bilaterally Cardiovascular: No edema, Normal S1 S2 Gastrointestinal: Normal bowel sounds, Soft and benign - Studies Laboratory Data (last 24 hrs) 10/31/17 18:45: PT 12.2, INR 1.03 10/31/17 18:45: WBC 8.4, Hgb 14.2, Hct 41.5, Plt Count 251 10/31/17 18:45: Sodium 141, Potassium 2.9 L*, BUN 11, Creatinine 0.90, Glucose 142 H, Magnesium 1.8, Total Bilirubin 0.5, AST 14 L, ALT 20, Alkaline Phosphatase 112 Assessment & Plan - Problems (Diagnosis) (1) Asthma Current Visit: Yes Status: Acute Plan: I strongly suspect that she has asthma as some shortness of breath tightness for a long time uses a nebulizer I recommend treatment with long-acting bronchodilator Advair for Symbicort for now chylous some low-dose prednisone telemetry monitoring thyroid function test is normal saturation normal chemistries unremarkable chest x-ray clear possible discharge tomorrow Qualifiers: Asthma severity: mild Discharge Plan: Home Plan to discharge in: 24 Hours
[2017-11-01] MEDS: DULERA 200/5 (MOMETASONE/FORMOTEROL) INHALER IH SCH ×2 (12:04→20:47)
[2017-11-01] MEDS ORDERED: ALPRAZOLAM 0.5 MG TABLET PO ONE (13:02)
[2017-11-01] MEDS: BUSPIRONE HCL 5 MG TABLET PO SCH ×2 (13:11→20:47)
[2017-11-01] MEDS: SPIRONOLACTONE 25 MG TABLET PO SCH ×2 (14:27→16:39)
[2017-11-01] MEDS: CARVEDILOL 25 MG TAB PO SCH ×2 (14:27→16:38)
[2017-11-01] MEDS: BUMETANIDE 1 MG TABLET PO SCH ×2 (14:27→16:39)
[2017-11-01] MEDS ORDERED: METFORMIN ER 500 MG TAB PO SCH (17:00)
[2017-11-01] MEDS: METFORMIN HCL 500 MG TAB PO SCH (18:09)
[2017-11-01] MEDS: ALPRAZOLAM 0.5 MG TABLET PO PRN (20:48)
[2017-11-01] MEDS: predniSONE 20 MG TAB PO SCH (20:49)
[2017-11-01] MEDS ORDERED: ATORVASTATIN 20 MG TAB PO SCH (21:00)
[2017-11-01] MEDS ORDERED: SPIRONOLACTONE 25 MG TABLET PO SCH (21:00)
[2017-11-02] MEDS: HYDROCODONE/APAP 7.5/325 MG TAB PO PRN ×2 (01:58→09:56)
[2017-11-02] MEDS: CARVEDILOL 25 MG TAB PO SCH (06:04)
[2017-11-02] MEDS: ALPRAZOLAM 0.5 MG TABLET PO PRN (06:09)
[2017-11-02 06:51] VITALS: BMI 41.5
[2017-11-02] MEDS: INSULIN -REGULAR HUMAN 50 UNIT/0.5 ML ML SQ SCH ×2 (07:30→11:30)
--- NOTE | 2017-11-02 08:15 | EKG ---
Test Date: 2017-10-31 Test Time: 19:22:09 Jewel Sorter: JEFRY MEASUREMENT RESULTS: Intervals: Rate: 73 TN: 244 QRSD: 94 QT: 416 QTc: 458 [place]: P: 54 TN: 244 QRS: -40 T: -15 INTERPRETIVE STATEMENTS: Sinus rhythm with 1st degree AV block Left axis deviation Incomplete right bundle branch block Nonspecific ST and T wave abnormality Abnormal ECG Compared to ECG 04/24/2017 14:32:02 Incomplete right bundle-branch block now present ST (T wave) deviation now present Left ventricular hypertrophy no longer present Myocardial infarct finding no longer present Electronically Signed On 11-02-17 08:14:55 CDT by Jordon Burnett
--- NOTE | 2017-11-02 08:20 | EKG ---
Test Date: 2017-10-31 Test Time: 19:22:34 Shoe Packer: JEFRY MEASUREMENT RESULTS: Intervals: Rate: 73 AK: 234 QRSD: 98 QT: 402 QTc: 442 [place]: P: 34 AK: 234 QRS: -38 T: -10 INTERPRETIVE STATEMENTS: Sinus rhythm with 1st degree AV block with premature atrial complexes Left axis deviation Incomplete right bundle branch block Nonspecific T wave abnormality Abnormal ECG Compared to ECG 10/31/2017 19:22:09 Atrial premature complex(es) now present T-wave abnormality now present ST (T wave) deviation no longer present Electronically Signed On 11-02-17 08:19:27 CDT by Jordon Burnett
[2017-11-02] MEDS ORDERED: MONTELUKAST 10 MG TAB PO SCH (09:00)
[2017-11-02] MEDS: DULERA 200/5 (MOMETASONE/FORMOTEROL) INHALER IH SCH (09:00)
[2017-11-02] MEDS ORDERED: METOLAZONE 5 MG TABLET PO SCH (09:00)
[2017-11-02] MEDS: ENOXAPARIN 40 MG/0.4 ML SQ SCH (09:49)
[2017-11-02] MEDS: BUMETANIDE 1 MG TABLET PO SCH (09:49)
[2017-11-02] MEDS: METFORMIN HCL 500 MG TAB PO SCH (09:49)
[2017-11-02] MEDS: SPIRONOLACTONE 25 MG TABLET PO SCH (09:50)
[2017-11-02] MEDS: predniSONE 20 MG TAB PO SCH (09:50)
[2017-11-02] MEDS: BUSPIRONE HCL 5 MG TABLET PO SCH (09:50)
[2017-11-02 12:23] VITALS: BP 141/61; TEMP 97.6
[2017-11-02 12:49] VITALS: O2SAT 95
[2017-11-02] MEDS ORDERED: BUMETANIDE 1 MG TABLET PO SCH (13:21)
--- NOTE | 2017-11-02 13:35 | P.SSS ---
Patient History Date of Service: 11/02/17 Reason for admission: Palpitations History of Present Illness: Ms Lemons is a 77-year-old woman with history of hypertension, dyslipidemia, types 2 diabetes mellitus, COPD, who came to ED complaining of shortness of breath and cough starting this morning. He also complained of skipping beats in her heart. She denied any fever, chills or sweating episodes. Her cough is mostly dry however sometimes she has whitish secretion. At presentation the patient was in no distress, O2 sat 95% on room air, HR 74 bpm. Allergies iodine [Iodine] Allergy (Mild, Verified 10/31/17 21:42) Hives azithromycin [From Zithromax Z-Yousuf] Allergy (Verified 10/31/17 21:42) Itching/Hives/Rash Home Medications: ALPRAZolam [Alprazolam] 0.5 mg PO TID 10/31/17 Albuterol Sulfate [Albuterol Sulfate 0.083% Neb Soln] 1 puff IH TID 10/31/17 Bumetanide [Bumex*] 2 mg PO BID 10/31/17 Buspirone HCl [Buspar*] 5 mg PO BID 10/31/17 Carvedilol [Coreg*] 25 mg PO BID 10/31/17 Codeine Phosphate/Guaifenesin [Guaifen-Codeine 100-10 mg/5 ml] 5 ml PO DAILY Insulin 70/30 NPH/Reg Human [Novolin 70/30*] 100 units IJ BID 10/31/17 Insulin Degludec [Tresiba Flextouch U-200] 3 ml IJ DAILY 10/31/17 Montelukast [Singulair*] 10 mg PO DAILY 10/31/17 Pot Chloride/Pot Bicarb/Cit AC [Potassium Cl 25 Meq Tab Eff] 20 meq PO DAILY Simvastatin 40 mg PO DAILY 10/31/17 Spironolactone 25 mg PO BID 10/31/17 metOLazone [Metolazone] 5 mg PO EVERY 3RD DAY 10/31/17 Metformin HCl 500 mg PO BIDWM 11/01/17 Albuterol Inhaler [Ventolin Inhaler*] 2 puff IH Q6H PRN #1 hfa.aer.ad 11/02/17 Fluticasone/Salmeterol [Advair Hfa 115-21 Mcg Inhaler] 8 gm IH BID #1 hfa.aer.ad 11/02/17 Prednisone [Deltasone] 20 mg PO DIRECTED #15 tablet 11/02/17 - Past Medical/Surgical History Has patient received pneumonia vaccine in the past: Yes Diabetic: Yes -: COPD -: Diabetes mellitus types 2 -: Hypertension -: Dyslipidemia -: Lymphedema -: HYSTERECTOMY -: APPEND -: TONSILLECTOMY -: TOOTH EXTRACTION - Family History Family History: Reviewed- Non-Contributory - Social History Smoking Status: Never smoker Alcohol use: No CD- Drugs: No Caffeine use: Yes Place of Residence: Home Review of Systems 10-point ROS is otherwise unremarkable Physical Examination - Vital Signs Temperature: 97.6 F Blood Pressure: 141/61 Pulse: 65 Respirations: 20 Pulse Ox (%): 98 - Physical Exam General: Alert, In no apparent distress HEENT: Atraumatic, PERRLA, Mucous membr. moist/pink, EOMI, Sclerae nonicteric Neck: Supple, 2+ carotid pulse no bruit, No LAD, Without JVD or thyroid abnormality Respiratory: Clear to auscultation bilaterally, Normal air movement Cardiovascular: Regular rate/rhythm, Normal S1 S2 Gastrointestinal: Normal bowel sounds, No tenderness Musculoskeletal: No tenderness Integumentary: No rashes Neurological: Normal gait, Normal speech, Normal strength at 5/5 x4 extr, Normal tone, Normal affect Lymphatics: No axilla or inguinal lymphadenopathy - Diagnosis (Problem(s)) (1) Asthma Current Visit: Yes Status: Acute Qualifiers: Asthma severity: mild (2) Chronic acquired lymphedema Current Visit: Yes Status: Acute (3) Diabetes mellitus Current Visit: Yes Status: Acute Qualifiers: Diabetes mellitus type: type 2 Diabetes mellitus termination clerk insulin use: with custodial use Diabetes mellitus complication status: with unspecified complications Qualified Code(s): E11.8 - Type 2 diabetes mellitus with unspecified complications; Z79.4 - MCFP (current) use of insulin (4) Hypertension Current Visit: Yes Status: Acute Qualifiers: Hypertension type: essential hypertension Qualified Code(s): I10 - Essential (primary) hypertension Treatment Summary: Overall during the hospital stay patient remained stable The patient was initially admitted to the hospital for shortness of breath was most likely secondary to asthma exacerbation. Patient was started on duo nebs, steroids and oxygen while here in the hospital. Was successfully weaned off of oxygen here in the hospital. Pulmonology recommended the patient can be discharged home once her wheezing has resolved and her shortness of breath has been resolved on long-term maintenance inhaler. Patient was prescribed Advair upon discharge and was discharged home under stable condition. Patient was asked to continue taking her steroids as prescribed. Given the fact that patient does have a history of they ABD patient will need to adjust her insulin dose right now due to ingestion of steroids. Patient demonstrated understanding and was asked to follow up with her primary care provider for further care. - Disposition Disposition: ROUTINE DISCHARGE Condition: GOOD Diet: Regular Activity: Ad eleuterio
== END 2017-11-02 15:00 | disposition home or self-care (01) ==
LOC: ER 18:13 → ERHOLD 19:22 → 2ND 20:28
PROVIDERS: ADMIT Internal Medicine; ATTEND Internal Medicine
DX: J45.909 Unspecified asthma, uncomplicated (principal); I50.9 Heart failure, unspecified; I11.0 Hypertensive heart disease with heart failure; I89.0 Lymphedema, not elsewhere classified; E78.5 Hyperlipidemia, unspecified; E11.9 Type 2 diabetes mellitus without complications; Z79.4 Long term (current) use of insulin; Z88.6 Allergy status to analgesic agent; Z91.09 Other allergy status, other than to drugs and biological substances; Z88.3 Allergy status to other anti-infective agents
CPT/HCPCS: 36415 ×2; 71045; 80048 ×2; 80076; 81003; 82962 ×7; 83605; 83735 ×2; 83880; 84132; 84145; 84443; 84484; 85025 ×2; 85379; 85610; 87040 ×2; 93005 ×2; 94640; 94760 ×3; 96361; 96365; 96375; 99285; G0378 ×2; J1650 ×2; J2920 ×2; J2930; J3475; J7030 ×2; J7512; J7606

== ENCOUNTER 2017-12-25 10:56 | Emergency (ER) | payer OTHER ==
--- NOTE | 2017-12-25 13:33 | RAD REPORT ---
EXAM DESCRIPTION: RAD - Hand Left 3 View - 12/25/2017 1:24 pm CLINICAL HISTORY: injury COMPARISON: No comparisons FINDINGS: Scattered arthritic changes are present. A fracture is not seen. A radiopaque foreign body is not suspected.
--- NOTE | 2017-12-25 14:11 | EDPHYS ---
Physician Documentation [facility] Name: Francine Lemons Age: 77 yrs Sex: Female : 1940 Arrival Date: 12/25/2017 Time: 11:01 Bed 11 Private MD: Gareth Renae ED Physician Anh Del Rosario HPI: 12/25 12:52 This 77 yrs old Female presents to ER via Ambulatory with complaints of Skin jmm Sore(s) - HAND. 12:52 The patient or guardian reports an abrasion, injury, pain. Onset: The symptoms/episode jmm began/occurred acutely, yesterday. Associated signs and symptoms: Pertinent negatives: fever, numbness distally, tingling distally. This is a 77 year old female that presents to the ED with left hand pain after hitting it on a car door. Denies other injury. . Historical: - Allergies: 11:56 Prednisone; aj1 - PMHx: 11:56 Anxiety; CHF; Chronic pain; COPD; Diabetes - IDDM; High Cholesterol; Hypertension; aj1 lymphedema; stasis neuropathy; - Immunization history:: Adult Immunizations up to date. - Social history:: Smoking status: unknown. ROS: 21:02 Constitutional: Negative for fever, chills, and weight loss, Cardiovascular: Negative jmm for chest pain, palpitations, and edema, Respiratory: Negative for shortness of breath, cough, wheezing, and pleuritic chest pain. 21:02 MS/extremity: Positive for injury or acute deformity, abrasion. 21:02 All other systems are negative. Exam: 21:02 Constitutional: This is a well developed, well nourished patient who is awake, alert, jmm and in no acute distress. Head/Face: atraumatic. Eyes: EOMI, no conjunctival erythema appreciated ENT: Moist Mucus Membranes Neck: Trachea midline, Supple Chest/axilla: Normal chest wall appearance and motion. Cardiovascular: Regular rate and rhythm. No edema appreciated Respiratory: Normal respirations, no respiratory distress appreciated 21:02 Musculoskeletal/extremity: FROM appreciated to the left hand, < 2 sec cap refill, NVI. 21:02 Skin: superficial skin tear noted to the dorsum of the left hand, no active bleeding appreciated. Vital Signs: 11:56 BP 174 / 72; Pulse 74; Resp 18; Temp 97.8(TE); Pulse Ox 96% on R/A; Weight 106.14 kg aj1 (R); Height 5 ft. 3 in. (160.02 cm) (R); Pain 9/10; 11:56 Body Mass Index 41.45 (106.14 kg, 160.02 cm) aj1 MDM: 12:52 Patient medically screened. [facility] 14:00 Data reviewed: vital signs, nurses notes. Counseling: I had a detailed discussion with [facility] the patient and/or guardian regarding: the historical points, exam findings, and any diagnostic results supporting the discharge/admit diagnosis, the need for outpatient follow up, to return to the emergency department if symptoms worsen or persist or if there are any questions or concerns that arise at home. 12/25 12:52 Order name: Hand Left 3 View XRAY; Complete Time: 13:50 [facility] 12/25 13:50 Order name: Wound Care; Complete Time: 14:04 [facility] Administered Medications: No medications were administered Disposition: 16:52 Co-signature as Attending Physician, Anh Del Rosario MD. ma2 Disposition: 12/25/17 14:01 Discharged to Home. Impression: Contusion of left hand. - Condition is Stable. - Discharge Instructions: Skin Tear Care. - Medication Reconciliation Form, Thank You Letter, Antibiotic Education, Prescription Opioid Use form. - Follow up: Gareth Renae MD; When: 2 - 3 days; Reason: Recheck today's complaints, Continuance of care, Re-evaluation by your physician. Signatures: Dispatcher [employer] EDRicha Harrington RN RN aj1 Shravan Monsivais PA PA [facility] Venita Cm RN RN ss Anh Del Rosario MD MD ma2 Corrections: (The following items were deleted from the chart) 14:05 14:01 12/25/2017 14:01 Discharged to Home. Impression: Contusion of left hand. ss Condition is Stable. Forms are Medication Reconciliation Form, Thank You Letter, Antibiotic Education, Prescription Opioid Use. Follow up: Gareth Renae; When: 2 - 3 days; Reason: Recheck today's complaints, Continuance of care, Re-evaluation by your physician. [facility] 21:03 12:52 This is a 77 year old female that presents to the ED with left hand, . jmm jmm
--- NOTE | 2017-12-25 14:11 | ER ---
Nurse's Notes [facility] Name: Francine Lemons Age: 77 yrs Sex: Female : 1940 Arrival Date: 12/25/2017 Time: 11:01 Bed 11 Private MD: Gareth Renae Diagnosis: Contusion of left hand Presentation: 12/25 11:54 Presenting complaint: Patient states: She bumped her hand on the door last night and aj1 she cut her hand. Skin tear noted to left hand, no bleeding noted at this time. Patient states that she is having a lot of pain in the hand and wasn't sure how to treat it. Transition of care: patient was not received from another setting of care. Onset of symptoms was December 24, 2017. Risk Assessment: Do you want to hurt yourself or someone else? Patient reports no desire to harm self or others. Initial Sepsis Screen: Does the patient meet any 2 criteria? No. Patient's initial sepsis screen is negative. Does the patient have a suspected source of infection? Yes: Skin breakdown/wound. Care prior to arrival: None. 11:54 Method Of Arrival: Ambulatory aj1 11:54 Acuity: AURELIO 4 aj1 Triage Assessment: 11:56 General: Appears in no apparent distress. comfortable, Behavior is calm, cooperative, aj1 appropriate for age. Pain: Complains of pain in left hand Pain currently is 9 out of 10 on a pain scale. Neuro: Level of Consciousness is awake, alert, obeys commands. Cardiovascular: Patient's skin is warm and dry. Respiratory: Airway is patent Respiratory effort is even, unlabored, Respiratory pattern is regular, symmetrical. Historical: - Allergies: 11:56 Prednisone; aj1 - PMHx: 11:56 Anxiety; CHF; Chronic pain; COPD; Diabetes - IDDM; High Cholesterol; Hypertension; aj1 lymphedema; stasis neuropathy; - Immunization history:: Adult Immunizations up to date. - Social history:: Smoking status: unknown. Screenin:09 Abuse screen: Denies threats or abuse. Denies injuries from another. Nutritional ss screening: No deficits noted. Tuberculosis screening: Never had TB. Fall Risk None identified. Assessment: 13:00 General: Appears in no apparent distress. comfortable, Behavior is calm, cooperative, ss Denies fever, feeling ill, fatigue, chills. Pain: Complains of pain in dorsum of left hand Pain currently is 8 out of 10 on a pain scale. Quality of pain is described as tender. Neuro: Level of Consciousness is awake, alert, obeys commands, Oriented to person, place, time, situation. Cardiovascular: Capillary refill < 3 seconds is brisk in bilateral fingers. Respiratory: Airway Respiratory effort is even, unlabored, Respiratory pattern is regular, symmetrical. GI: No signs and/or symptoms were reported involving the gastrointestinal system. : No signs and/or symptoms were reported regarding the genitourinary system. Derm: Skin is fragile, is thin, with poor turgor Skin is pink, warm \T\ dry. normal. Injury Description: skin tear sustained last night, approx 1 inch in length. No bleeding noted. No redness. Vital Signs: 11:56 BP 174 / 72; Pulse 74; Resp 18; Temp 97.8(TE); Pulse Ox 96% on R/A; Weight 106.14 kg aj1 (R); Height 5 ft. 3 in. (160.02 cm) (R); Pain 9/10; 11:56 Body Mass Index 41.45 (106.14 kg, 160.02 cm) aj1 ED Course: 11:01 Patient arrived in ED. sb2 11:02 Gareth Renae MD is Private Physician. sb2 11:55 Triage completed. aj1 11:56 Arm band placed on Patient placed in waiting room, Patient notified of wait time. aj1 12:31 Shravan Monsivais PA is PHCP. jmm 12:31 Anh Del Rosario MD is Attending Physician. jmm 13:09 Venita Cm, PILO is Primary Nurse. ss 13:09 Patient has correct armband on for positive identification. Bed in low position. Call ss light in reach. 13:23 X-ray completed. Portable x-ray completed in exam room. Patient tolerated procedure ls3 well. 13:23 Hand Left 3 View XRAY In Process Unspecified. EDMS 14:01 Gareth Renae MD is Referral Physician. jmm 14:04 No provider procedures requiring assistance completed. Patient did not have IV access ss during this emergency room visit. Wound care: to skin tear located on dorsum of left hand was dressed with Neosporin, Kerlix, non adherent pad, Patient tolerated well. Administered Medications: No medications were administered Outcome: 14:01 Discharge ordered by . judy 14:04 Discharged to home ambulatory, with family. carmelita 14:04 Condition: good 14:04 Discharge instructions given to patient, family, Instructed on discharge instructions, follow up and referral plans. wound care, Demonstrated understanding of instructions, follow-up care, wound care. 14:05 Patient left the ED. Signatures: Dispatcher [employer] EDRicha Harrington, PILO RN aj1 Shravan Monsivais PA PA jmm Smirch, Shelby, RN RN ss Bere Menezes sb2 Danie Henry ls3
[2017-12-25 14:20] VITALS: BP 174/72; TEMP 97.8; O2SAT 96
== END 2017-12-25 14:05 | disposition home or self-care (01) ==
LOC: ER 10:56
DX: S60.222A Contusion of left hand, initial encounter (principal); S60.512A Abrasion of left hand, initial encounter; W22.8XXA Striking against or struck by other objects, initial encounter; E11.9 Type 2 diabetes mellitus without complications; Z79.4 Long term (current) use of insulin
CPT/HCPCS: 99283

== ENCOUNTER 2018-02-06 19:20 | Emergency (ER) | payer OTHER ==
--- NOTE | 2018-02-06 21:00 | RAD REPORT ---
EXAM DESCRIPTION: Ej Pa And Lat (2 Views)02/06/2018 8:40 pm CLINICAL HISTORY: Cough COMPARISON: October 2017 FINDINGS: Bilateral interstitial lung opacities are without change and presumably chronic. The heart is mildly enlarged
--- NOTE | 2018-02-06 21:40 | EDPHYS ---
Physician Documentation [facility] Name: Francine Lemons Age: 77 yrs Sex: Female : 1940 Arrival Date: 02/06/2018 Time: 19:27 Bed 20 Private MD: Gareth Renae ED Physician Stef Wise HPI: 02/06 20:18 This 77 yrs old Female presents to ER via Ambulatory with complaints of Sore jmm Throat. 20:18 The patient presents with sore throat. Onset: The symptoms/episode began/occurred jmm gradually, 1 day(s) ago. Associated signs and symptoms: Pertinent positives: cough, Sore throat. This is a 77 year old female with a history of CHF, DM that presents to the ED with cough, congestion, sore throat beginning yesterday. Patient denies fever. Patient also complains of pain to her left lower leg. Patient states it was scraped against a door and states now it is leaking. . Historical: - Allergies: 19:44 Iodine; aj1 19:44 Azithromycin; aj1 19:44 Prednisone; aj1 - Home Meds: 19:44 Albuterol Nebulizer [Active]; Bumetanide Oral [Active]; carvedilol oral oral [Active]; aj1 gabapentin oral oral [Active]; losartan oral oral [Active]; Metformin Oral [Active]; metolazone oral oral [Active]; Novolin 70/30 Innolet Sub-Q [Active]; Potassium Chloride Oral [Active]; Promethazine Oral [Active]; Simvastatin Oral [Active]; Singulair Oral [Active]; Spironolactone Oral [Active]; Tresiba FlexTouch U-100 subcutaneous subcutaneous [Active]; Xanax Oral [Active]; - PMHx: 19:44 Anxiety; CHF; Chronic pain; COPD; Diabetes - IDDM; High Cholesterol; Hypertension; aj1 lymphedema; stasis neuropathy; ADD/ADHD; - Immunization history:: Flu vaccine is up to date. - Social history:: Smoking status: Patient/guardian denies using tobacco. - Ebola Screening: : Patient denies travel to an Ebola-affected area in the 21 days before illness onset. ROS: 20:18 Constitutional: Negative for fever, chills, and weight loss, Cardiovascular: Negative jmm for chest pain, palpitations, and edema. 20:18 Abdomen/GI: Negative for abdominal pain, nausea, vomiting, diarrhea, and constipation. 20:18 ENT: Positive for sinus congestion, sore throat. 20:18 Respiratory: Positive for cough. 20:18 MS/extremity: Positive for injury or acute deformity. 20:18 Skin: Positive for abrasion(s). 20:18 All other systems are negative. Exam: 20:18 Constitutional: This is a well developed, well nourished patient who is awake, alert, jmm and in no acute distress. Head/Face: atraumatic. 20:18 ENT: TM's: are normal, Posterior pharynx: erythema, that is mild. 20:18 Neck: ROM/movement: is normal. 20:18 Cardiovascular: Rate: normal, Rhythm: regular. 20:18 Respiratory: the patient does not display signs of respiratory distress, Respirations: normal, Breath sounds: are clear throughout. 20:18 Abdomen/GI: Inspection: abdomen appears normal, Bowel sounds: normal. 20:18 Musculoskeletal/extremity: an abrasion is noted to the left lower leg with mild erythema, no purulent drainage is appreciated. . 20:18 Skin: Appearance: Color: normal in color, abrasion noted to the left lower leg. 20:18 Neuro: Orientation: is normal, Mentation: is normal, Memory: is normal. 20:18 Psych: Behavior/mood is pleasant, cooperative. Vital Signs: 19:44 BP 192 / 85; Pulse 81; Resp 18; Temp 97.8; Pulse Ox 97% on R/A; Weight 111.13 kg (R); aj1 Pain 0/10; 21:19 BP 163 / 80; Pulse 76; Resp 18; Pulse Ox 96% on R/A; lp1 MDM: 20:[address] [facility] 21:21 Data reviewed: vital signs, nurses notes. Counseling: I had a detailed discussion with [facility] the patient and/or guardian regarding:. 21:38 Counseling: I had a detailed discussion with the patient and/or guardian regarding: the [facility] historical points, exam findings, and any diagnostic results supporting the discharge/admit diagnosis, lab results, radiology results, the need for outpatient follow up, to return to the emergency department if symptoms worsen or persist or if there are any questions or concerns that arise at home. ED course: Patient is alert and non toxi tyrell appearance in the ED. patient shows no signs of resp distress. patient is advised to follow up with pcp for reevaluation. the patient is wound infection return precautions. patient understood and agrees with the plan of care. . 02/06 20:17 Order name: Influenza Screen (a \T\ B); Complete Time: 21:[address] [facility] 02/06 20:17 Order name: Strep; Complete Time: 10:[address] [facility] 02/06 20:17 Order name: Chest Pa And Lat (2 Views) XRAY; Complete Time: 21:[address] [facility] 02/06 21:50 Order name: Throat Culture EDMS Administered Medications: No medications were administered Disposition: :23 Co-signature as Attending Physician, Stef Wise MD. [email or web address] Disposition: 02/06/18 21:39 Discharged to Home. Impression: Acute bronchitis, Abrasion, left lower leg. - Condition is Stable. - Discharge Instructions: Acute Bronchitis, Adult. - Prescriptions for cefdinir 300 mg Oral capsule - take 1 capsule by ORAL route every 12 hours for 10 days; 20 capsule. Guaifenesin AC 10- 100 mg/5 mL Oral Liquid - take 5 milliliter by ORAL route every 4 hours As needed; 120 milliliter. - Medication Reconciliation Form, Thank You Letter, Antibiotic Education, Prescription Opioid Use form. - Follow up: Gareth Renae MD; When: 2 - 3 days; Reason: Recheck today's complaints, Continuance of care, Re-evaluation by your physician. Signatures: Dispatcher [employer] EDMS Richa Sutton RN RN aj1 Stef Wise MD MD pkl Shravan Monsivais PA PA [facility] Melissa Phelan, RN RN lp1 Corrections: (The following items were deleted from the chart) 21:40 21:39 02/06/2018 21:39 Discharged to Home. Impression: Acute bronchitis. Condition is [facility] Stable. Forms are Medication Reconciliation Form, Thank You Letter, Antibiotic Education, Prescription Opioid Use. Follow up: Gareth Renae; When: 2 - 3 days; Reason: Recheck today's complaints, Continuance of care, Re-evaluation by your physician. [facility] 21:51 21:40 02/06/2018 21:39 Discharged to Home. Impression: Acute bronchitis; Abrasion, left lp1 lower leg. Condition is Stable. Discharge Instructions: Acute Bronchitis, Adult. Prescriptions for cefdinir 300 mg Oral capsule - take 1 capsule by ORAL route every 12 hours for 10 days; 20 capsule, Guaifenesin AC 10-100 mg/5 mL Oral Liquid - take 5 milliliter by ORAL route every 4 hours As needed; 120 milliliter. and Forms are Medication Reconciliation Form, Thank You Letter, Antibiotic Education, Prescription Opioid Use. Follow up: Gareth Renae; When: 2 - 3 days; Reason: Recheck today's complaints, Continuance of care, Re-evaluation by your physician. judy
--- NOTE | 2018-02-06 21:40 | ER ---
Nurse's Notes [facility] Name: Francine Lemons Age: 77 yrs Sex: Female : 1940 Arrival Date: 02/06/2018 Time: 19:27 Bed 20 Private MD: Gareth Renae Diagnosis: Acute bronchitis;Abrasion, left lower leg Presentation: 02/06 19:38 Presenting complaint: Patient states: "I keep coughing real bad, and my throat is real aj1 sore." Denies fever. Patient also reports nasal congestion. Transition of care: patient was not received from another setting of care. Onset of symptoms was February 05, 2018. Risk Assessment: Do you want to hurt yourself or someone else? Patient reports no desire to harm self or others. Initial Sepsis Screen: Does the patient meet any 2 criteria? No. Patient's initial sepsis screen is negative. Does the patient have a suspected source of infection? No. Patient's initial sepsis screen is negative. Care prior to arrival: None. 19:38 Method Of Arrival: Ambulatory aj 19:38 Acuity: AURELIO 4 aj1 Triage Assessment: 19:44 General: Appears in no apparent distress. comfortable, Behavior is calm, cooperative, aj1 appropriate for age. Pain: Denies pain. EENT: Reports nasal congestion nasal discharge sore throat. Neuro: Level of Consciousness is awake, alert, obeys commands. Cardiovascular: Patient's skin is warm and dry. Historical: - Allergies: 19:44 Iodine; aj1 19:44 Azithromycin; aj1 19:44 Prednisone; aj1 - Home Meds: 19:44 Albuterol Nebulizer [Active]; Bumetanide Oral [Active]; carvedilol oral oral [Active]; aj1 gabapentin oral oral [Active]; losartan oral oral [Active]; Metformin Oral [Active]; metolazone oral oral [Active]; Novolin 70/30 Innolet Sub-Q [Active]; Potassium Chloride Oral [Active]; Promethazine Oral [Active]; Simvastatin Oral [Active]; Singulair Oral [Active]; Spironolactone Oral [Active]; Tresiba FlexTouch U-100 subcutaneous subcutaneous [Active]; Xanax Oral [Active]; - PMHx: 19:44 Anxiety; CHF; Chronic pain; COPD; Diabetes - IDDM; High Cholesterol; Hypertension; aj1 lymphedema; stasis neuropathy; ADD/ADHD; - Immunization history:: Flu vaccine is up to date. - Social history:: Smoking status: Patient/guardian denies using tobacco. - Ebola Screening: : Patient denies travel to an Ebola-affected area in the 21 days before illness onset. Screenin:02 Abuse screen: Denies threats or abuse. Denies injuries from another. Nutritional lp1 screening: No deficits noted. Tuberculosis screening: No symptoms or risk factors identified. Fall Risk None identified. Assessment: 19:57 General: Appears in no apparent distress. Behavior is appropriate for age. Pain: lp1 Complains of pain in throat. Neuro: Level of Consciousness is awake, alert, obeys commands. Cardiovascular: Patient's skin is warm and dry. Respiratory: Reports cough that is dry, persistent pain with cough Airway is patent Respiratory effort is even, unlabored, Breath sounds are clear bilaterally. GI: No signs and/or symptoms were reported involving the gastrointestinal system. : No signs and/or symptoms were reported regarding the genitourinary system. EENT: Throat is clear Reports pain when swallowing. Derm: Skin is pink, warm \\T\\ dry. Musculoskeletal: No deficits noted. 21:19 Reassessment: Patient appears in no apparent distress at this time. Patient and/or lp1 family updated on plan of care and expected duration. Pain level reassessed. Patient is alert, oriented x 3, equal unlabored respirations, skin warm/dry/pink. Patient aware of waiting for results. Vital Signs: 19:44 BP 192 / 85; Pulse 81; Resp 18; Temp 97.8; Pulse Ox 97% on R/A; Weight 111.13 kg (R); aj1 Pain 0/10; 21:19 BP 163 / 80; Pulse 76; Resp 18; Pulse Ox 96% on R/A; lp1 ED Course: 19:27 Patient arrived in ED. es 19:27 Gareth Renae MD is Private Physician. es 19:40 Triage completed. aj1 19:44 Arm band placed on Patient placed in an exam room. aj1 19:49 Melissa Phelan, PILO is Primary Nurse. lp1 20:00 Shravan Mosnivais PA is PHCP. [facility] 20:00 Stef Wise MD is Attending Physician. jmm 20:02 Patient has correct armband on for positive identification. lp1 20:36 Chest Pa And Lat (2 Views) XRAY In Process Unspecified. EDMS 21:11 Flu and/or RSV swab sent to lab. Strep swab sent to lab. ag4 21:39 Gareth Renae MD is Referral Physician. jmm 21:50 No provider procedures requiring assistance completed. Patient did not have IV access lp1 during this emergency room visit. Administered Medications: No medications were administered Outcome: 21:39 Discharge ordered by . m 21:50 Discharged to home ambulatory, with family. lp1 21:50 Condition: good 21:50 Discharge instructions given to patient, Instructed on discharge instructions, follow up and referral plans. medication usage, Demonstrated understanding of instructions, follow-up care, medications, Prescriptions given X 2. 21:51 Patient left the ED. lp1 Signatures: Dispatcher [employer] Richa Rizvi RN RN aj1 Shravan Monsivais PA PA Gloria Brennan Laura, RN RN lp1 [place] ag4
[2018-02-06 22:05] VITALS: TEMP 97.8
[2018-02-06 22:07] VITALS: BP 163/80; O2SAT 96
== END 2018-02-06 21:51 | disposition home or self-care (01) ==
LOC: ER 19:20
DX: J20.9 Acute bronchitis, unspecified (principal); J44.0 Chronic obstructive pulmonary disease with (acute) lower respiratory infection; S80.812A Abrasion, left lower leg, initial encounter; X58.XXXA Exposure to other specified factors, initial encounter; E11.40 Type 2 diabetes mellitus with diabetic neuropathy, unspecified; E78.00 Pure hypercholesterolemia, unspecified; I11.0 Hypertensive heart disease with heart failure; I50.9 Heart failure, unspecified; I89.0 Lymphedema, not elsewhere classified; F90.9 Attention-deficit hyperactivity disorder, unspecified type; G89.29 Other chronic pain; Z79.4 Long term (current) use of insulin; Z79.899 Other long term (current) drug therapy
CPT/HCPCS: 71046; 87070; 87081; 87804; 99283

== ENCOUNTER 2018-03-03 12:39 | Emergency (ER) | payer OTHER ==
[2018-03-03 13:25] LABS: Absolute Lymphocytes (CBC) 1.8 K/uL (0.7-4.9); Absolute Monocytes 0.5 K/uL (0.1-1.3); Eosinophils % 2.3 % (0-4.4); Hematocrit 43.1 % (36.0-45.0); Lymphocytes % 27.8 % (15.3-44.8); MPV 9.6 fL (7.6-11.3); Monocytes % 7.3 % (3.3-12.3); RBC Red Blood Cell Count 5.22 M/uL (3.86-4.86)
[2018-03-03 13:29] LABS: Protime INR 1.04
--- NOTE | 2018-03-03 13:39 | RAD REPORT ---
EXAM DESCRIPTION: Ej Bains (2 Views)03/03/2018 1:29 pm CLINICAL HISTORY: Cough COMPARISON: January 2018 FINDINGS: The lungs appear clear of acute infiltrate. The heart is borderline enlarged IMPRESSION: No acute abnormalities displayed
[2018-03-03 13:45] LABS: ALT/SGPT 17 U/L (12-78); AST/SGOT 10 U/L (15-37); Albumin 3.4 g/dL (3.4-5.0); Alkaline Phosphatase 119 U/L (45-117); BUN Blood Urea Nitrogen 12 mg/dL (7-18); Bicarbonate 30 mmol/L (21-32); Bilirubin Direct 0.2 mg/dL (0-0.2); Bilirubin Total 0.6 mg/dL (0.2-1.0); Glucose Level 290 mg/dL (74-106); NT PRO-BNP 37 pg/mL (<450); Potassium 3.9 mmol/L (3.5-5.1); Protein, Total 6.8 g/dL (6.4-8.2); Sodium Level 137 mmol/L (136-145); Troponin (Emerg Dept Use Only) < 0.02 ng/mL (0.0-0.045)
[2018-03-03] MEDS ORDERED: ALBUTEROL 2.5 MG/3 ML NEB SOL ONE (14:12)
[2018-03-03] MEDS ORDERED: IPRATROPIUM BROM 0.5MG/2.5ML ONE (14:12)
--- NOTE | 2018-03-03 14:54 | ER ---
Nurse's Notes [facility] Name: Francine Lemons Age: 77 yrs Sex: Female : 1940 Arrival Date: 03/03/2018 Time: 12:43 Bed 8 Private MD: out of town, doctor Diagnosis: Chronic obstructive pulmonary disease, unspecified;Edema, unspecified-peripheral edema Presentation: 03/03 12:46 Presenting complaint: Patient states: the doctor sent me here to the ER to have my ca1 lungs checked for Pneumonia since I have dry cough. The doctor also wanted to have my R leg which is swelling checked. I am having SOB right now. Transition of care: patient was not received from another setting of care. Onset of symptoms was 2017. Risk Assessment: Do you want to hurt yourself or someone else? Patient reports no desire to harm self or others. Initial Sepsis Screen: Does the patient meet any 2 criteria? No. Patient's initial sepsis screen is negative. Does the patient have a suspected source of infection? No. Patient's initial sepsis screen is negative. Care prior to arrival: None. 12:46 Method Of Arrival: Ambulatory ca1 12:46 Acuity: AURELIO 3 ca1 Historical: - Allergies: 12:52 Azithromycin; ca1 12:52 Iodine; ca1 12:52 Prednisone; ca1 - Home Meds: 14:50 Albuterol Inhl [Active]; Bumetanide Oral [Active]; carvedilol Oral [Active]; Metformin tw2 Oral [Active]; gabapentin Oral [Active]; losartan Oral [Active]; metolazone Oral [Active]; Novolin 70/30 [place] Sub-Q [Active]; Potassium Chloride Oral [Active]; Promethazine Oral [Active]; Simvastatin Oral [Active]; Tresiba FlexTouch U-100 subcutaneous [Active]; Spironolactone Oral [Active]; Singulair Oral [Active]; Xanax Oral [Active]; - PMHx: 12:52 ADD/ADHD; Anxiety; CHF; Chronic pain; COPD; Diabetes - IDDM; High Cholesterol; ca1 Hypertension; lymphedema; stasis neuropathy; - PSHx: 12:52 Hysterectomy; Tonsillectomy; Appendectomy; ca1 - Immunization history:: Adult Immunizations up to date. - Social history:: Smoking status: Patient/guardian denies using tobacco. - Ebola Screening: : No symptoms or risks identified at this time. Screenin:43 Abuse screen: Denies threats or abuse. Nutritional screening: No deficits noted. tw2 Tuberculosis screening: No symptoms or risk factors identified. Fall Risk None identified. Assessment: 13:00 General: Appears in no apparent distress. obese, Behavior is calm, cooperative, tw2 appropriate for age. 13:00 Pain: Denies pain. Neuro: Level of Consciousness is awake, alert, obeys commands, tw2 Oriented to person, place, situation. Cardiovascular: Heart tones S1 S2 Patient's skin is warm and dry. Edema is 3+ to left midcalf, left ankle, left foot, right midcalf, right ankle and right foot. Cardiovascular: Reports high blood pressure and leg swelling. Respiratory: Airway is patent Respiratory effort is even, unlabored, Respiratory pattern is regular, symmetrical. GI: No signs and/or symptoms were reported involving the gastrointestinal system. Abdomen is round non-distended, obese, Bowel sounds present X 4 quads. : No signs and/or symptoms were reported regarding the genitourinary system. EENT: No signs and/or symptoms were reported regarding the EENT system. Derm: Reports weeping wounds to b/l LE, pt has gauze dressing applied. Musculoskeletal: Range of motion: intact in all extremities, pt ambulates to bathroom with personal walker. 14:09 Reassessment: Patient appears in no apparent distress at this time. Patient and/or tw2 family updated on plan of care and expected duration. Pain level reassessed. Patient is alert, oriented x 3, equal unlabored respirations, skin warm/dry/pink. 14:54 Reassessment: Patient appears in no apparent distress at this time. Patient and/or tw2 family updated on plan of care and expected duration. Pain level reassessed. Patient is alert, oriented x 3, equal unlabored respirations, skin warm/dry/pink. Patient states feeling better. Patient states symptoms have improved. Vital Signs: 12:52 BP 100 / 78; Pulse 74; Resp 18; Temp 97.7; Pulse Ox 94% on R/A; Weight 106.14 kg; ca1 Height 5 ft. 3 in. (160.02 cm); Pain 0/10; 13:45 Pulse 63; Resp 22 S; Pulse Ox 89% on R/A; jl7 14:01 BP 119 / 55; Pulse 62; Resp 20; Pulse Ox 96% on 2 lpm NC; jl7 14:08 BP 104 / 56; Pulse 62; Resp 19; Pulse Ox 99% on Nebulizer Mask; tw2 14:55 BP 102 / 52; Pulse 66; Resp 19; Pulse Ox 94% on R/A; tw2 12:52 Body Mass Index 41.45 (106.14 kg, 160.02 cm) ca1 ED Course: 12:43 Patient arrived in ED. dl4 12:44 out of town, doctor is Private Physician. dl4 12:51 Triage completed. ca1 12:52 Arm band placed on right wrist. ca1 12:55 Rudi Ralph NP is PHCP. pm1 12:55 Pierce Bettencourt MD is Attending Physician. pm1 12:55 Bed in low position. Call light in reach. Adult w/ patient. survey operations director on. Pulse tw2 ox on. NIBP on. pt requests to remain in w/c for comfort. 13:02 Krista Ibanez RN is Primary Nurse. tw2 13:19 Initial lab(s) drawn, by ok, sent to lab. Inserted saline lock: 20 gauge in right em1 forearm, using aseptic technique. Blood collected. 13:25 X-ray completed. Patient tolerated procedure well. Patient moved to radiology via sw wheelchair. Patient moved back from radiology. 13:28 XRAY Chest Pa And Lat (2 Views) In Process Unspecified. EDMS 13:29 EKG done, by maintenance service technician. reviewed by Rudi Ralph NP. at1 14:58 No provider procedures requiring assistance completed. IV discontinued, intact, tw2 bleeding controlled, No redness/swelling at site. Pressure dressing applied. Administered Medications: 14:05 Drug: Albuterol 2.5 mg Route: Inhalation; jl7 14:05 Drug: AtroVENT Aerosol 0.5 mg Route: Inhalation; jl7 Outcome: 14:52 Discharge ordered by . pm1 15:06 Discharged to home ambulatory, with family, walker tw2 15:06 Condition: stable 15:06 Discharge instructions given to patient, significant other, Instructed on discharge instructions, follow up and referral plans. medication usage, Demonstrated understanding of instructions, follow-up care, medications, Prescriptions given X 2. 15:07 Patient left the ED. tw2 Signatures: Dispatcher [employer] Florentin Macedo em1 Zoraida Lin, jd edwards developer EKG Tat1 Tomasa Colon Patrick, INDRA [place] M[employer] OPERATOR pm1 Krista Ibanez RN RN tw2 Rachel Fabian RN RN jl7 Angel Collier dl4 Kathia Tran RN RN ca1 Corrections: (The following items were deleted from the chart) 13:25 13:23 General: Appears in no apparent distress. obese, Behavior is calm, cooperative, tw2 appropriate for age, tw2
--- NOTE | 2018-03-03 14:54 | EDPHYS ---
Physician Documentation [facility] Name: Francine Lemons Age: 77 yrs Sex: Female : 1940 Arrival Date: 03/03/2018 Time: 12:43 Bed 8 Private MD: out of town, doctor ED Physician Pierce Bettencourt HPI: 03/03 13:07 This 77 yrs old Female presents to ER via Ambulatory with complaints of Leg pm1 Swelling, High Blood Pressure. 13:07 The patient has shortness of breath at rest, with light activity, . Onset: The pm1 symptoms/episode began/occurred 6 month(s) ago. Duration: The symptoms are continuous. Duration: The symptoms are chronic. Associated signs and symptoms: Pertinent positives: non-productive cough, Pertinent negatives: chest pain, diaphoresis, dizziness, fever, nausea, vomiting. Severity of symptoms: in the emergency department the symptoms are unchanged. The patient has experienced similar episodes in the past, chronically. The patient has been recently seen by a physician: the patient's primary care provider, sent by PCP for evaluation of cough and shortness of breath to rule out pneumonia. Patient with bilateral leg swelling for multiple months. Historical: - Allergies: 12:52 Azithromycin; ca1 12:52 Iodine; ca1 12:52 Prednisone; ca1 - Home Meds: 14:50 Albuterol Inhl [Active]; Bumetanide Oral [Active]; carvedilol Oral [Active]; Metformin tw2 Oral [Active]; gabapentin Oral [Active]; losartan Oral [Active]; metolazone Oral [Active]; Novolin 70/30 [place] Sub-Q [Active]; Potassium Chloride Oral [Active]; Promethazine Oral [Active]; Simvastatin Oral [Active]; Tresiba FlexTouch U-100 subcutaneous [Active]; Spironolactone Oral [Active]; Singulair Oral [Active]; Xanax Oral [Active]; - PMHx: 12:52 ADD/ADHD; Anxiety; CHF; Chronic pain; COPD; Diabetes - IDDM; High Cholesterol; ca1 Hypertension; lymphedema; stasis neuropathy; - PSHx: 12:52 Hysterectomy; Tonsillectomy; Appendectomy; ca1 - Immunization history:: Adult Immunizations up to date. - Social history:: Smoking status: Patient/guardian denies using tobacco. - Ebola Screening: : No symptoms or risks identified at this time. ROS: 13:07 Constitutional: Negative for fever, chills, and weight loss, Eyes: Negative for injury, pm1 pain, redness, and discharge, ENT: Negative for injury, pain, and discharge, Neck: Negative for injury, pain, and swelling. 13:07 Abdomen/GI: Negative for abdominal pain, nausea, vomiting, diarrhea, and constipation, Back: Negative for injury and pain, : Negative for injury, bleeding, discharge, and swelling, MS/Extremity: Negative for injury and deformity. 13:07 Skin: Negative for injury, rash, and discoloration, Neuro: Negative for headache, weakness, numbness, tingling, and seizure. 13:07 Cardiovascular: Positive for edema, Negative for chest pain, orthopnea, palpitations. 13:07 Respiratory: Positive for cough, shortness of breath, Negative for sputum production, wheezing. Exam: 13:07 Constitutional: This is a well developed, well nourished patient who is awake, alert, pm1 and in no acute distress. Head/Face: Normocephalic, atraumatic. Eyes: Pupils equal round and reactive to light, extra-ocular motions intact. Lids and lashes normal. Conjunctiva and sclera are non-icteric and not injected. Cornea within normal limits. Periorbital areas with no swelling, redness, or edema. ENT: Nares patent. No nasal discharge, no septal abnormalities noted. Tympanic membranes are normal and external auditory canals are clear. Oropharynx with no redness, swelling, or masses, exudates, or evidence of obstruction, uvula midline. Mucous membranes moist. Neck: Trachea midline, no thyromegaly or masses palpated, and no cervical lymphadenopathy. Supple, full range of motion without nuchal rigidity, or vertebral point tenderness. No Meningismus. Chest/axilla: Normal chest wall appearance and motion. Nontender with no deformity. No lesions are appreciated. Respiratory: Lungs have equal breath sounds bilaterally, clear to auscultation and percussion. No rales, rhonchi or wheezes noted. No increased work of breathing, no retractions or nasal flaring. 13:07 Abdomen/GI: Soft, non-tender, with normal bowel sounds. No distension or tympany. No guarding or rebound. No evidence of tenderness throughout. Back: No spinal tenderness. No costovertebral tenderness. Full range of motion. Skin: Warm, dry with normal turgor. Normal color with no rashes, no lesions, and no evidence of cellulitis. MS/ Extremity: Pulses equal, no cyanosis. Neurovascular intact. Full, normal range of motion. 13:07 Cardiovascular: Rate: normal, Heart sounds: normal, Edema: bilateral pedal edema 1+. 13:07 Neuro: Orientation: is normal, Motor: is normal, moves all fours, Gait: is steady, at a normal pace, without difficulty. Vital Signs: 12:52 BP 100 / 78; Pulse 74; Resp 18; Temp 97.7; Pulse Ox 94% on R/A; Weight 106.14 kg; ca1 Height 5 ft. 3 in. (160.02 cm); Pain 0/10; 13:45 Pulse 63; Resp 22 S; Pulse Ox 89% on R/A; jl7 14:01 BP 119 / 55; Pulse 62; Resp 20; Pulse Ox 96% on 2 lpm NC; jl7 14:08 BP 104 / 56; Pulse 62; Resp 19; Pulse Ox 99% on Nebulizer Mask; tw2 14:55 BP 102 / 52; Pulse 66; Resp 19; Pulse Ox 94% on R/A; tw2 12:52 Body Mass Index 41.45 (106.14 kg, 160.02 cm) ca1 MDM: 12:56 Patient medically screened. pm1 13:03 Data reviewed: vital signs. pm1 14:51 Counseling: I had a detailed discussion with the patient and/or guardian regarding: the pm1 historical points, exam findings, and any diagnostic results supporting the discharge/admit diagnosis, lab results, radiology results, the need for outpatient follow up, to return to the emergency department if symptoms worsen or persist or if there are any questions or concerns that arise at home. 14:52 ED course: patient is supposed to be taking albuterol nebulizer and inhaler. They have pm1 been for months. Will prescribe to patient for COPD management. 03/03 13:06 Order name: Basic Metabolic Panel pm1 03/03 13:06 Order name: CBC with Diff pm1 03/03 13:06 Order name: LFT's; Complete Time: 13:52 pm1 03/03 13:06 Order name: Magnesium; Complete Time: 13:52 pm1 03/03 13:06 Order name: NT PRO-BNP; Complete Time: 13:52 pm1 03/03 13:06 Order name: PT-INR; Complete Time: 13:52 pm1 03/03 13:06 Order name: Troponin (emerg Dept Use Only); Complete Time: 13:52 pm1 03/03 13:06 Order name: EKG; Complete Time: 13:07 pm1 03/03 13:07 Order name: Basic Metabolic Panel; Complete Time: 13:52 EDMS 03/03 13:07 Order name: CBC with Automated Diff; Complete Time: 13:52 EDMS 03/03 13:15 Order name: XRAY Chest Pa And Lat (2 Views); Complete Time: 13:52 tw2 03/03 13:06 Order name: Cardiac monitoring; Complete Time: 13:14 pm1 03/03 13:06 Order name: EKG - Nurse/Tech; Complete Time: 13:19 pm1 03/03 13:06 Order name: IV Saline Lock; Complete Time: 13:19 pm1 03/03 13:06 Order name: Labs collected and sent; Complete Time: 13:19 pm1 03/03 13:06 Order name: O2 Per Protocol; Complete Time: 13:14 pm1 03/03 13:06 Order name: O2 Sat Monitoring; Complete Time: 13:14 pm1 Administered Medications: 14:05 Drug: Albuterol 2.5 mg Route: Inhalation; jl7 14:05 Drug: AtroVENT Aerosol 0.5 mg Route: Inhalation; jl7 Disposition: 17:00 Co-signature as Attending Physician, Pierce Bettencourt MD. rn Disposition: 03/03/18 14:52 Discharged to Home. Impression: Chronic obstructive pulmonary disease, unspecified, Edema, unspecified - peripheral edema. - Condition is Stable. - Discharge Instructions: Chronic Obstructive Pulmonary Disease, Peripheral Edema. - Prescriptions for Albuterol Sulfate 2.5 mg /3 mL (0.083 %) Inhalation Solution for Nebulization - inhale 1 unit by NEBULIZATION route every 8 hours As needed; 1 box. Albuterol Sulfate 90 mcg/actuation - inhale 1-2 puff by INHALATION route every 4-6 hours; 1 Inhaler. - Medication Reconciliation Form, Thank You Letter, Antibiotic Education form. - Follow up: Emergency Department; When: As needed; Reason: Worsening of condition. Follow up: Private Physician; When: 2 - 3 days; Reason: Recheck today's complaints, Continuance of care, Re-evaluation by your physician. - Problem is new. - Symptoms have improved. Signatures: Dispatcher [employer] [facility] Pierce Bettencourt MD MD rn Rudi Ralph, REPORTS DEVELOPER REPORTS DEVELOPER pm1 Krista Ibanez RN RN tw2 Rachel Fabian RN RN jl7 Kathia Tran RN RN ca1 Corrections: (The following items were deleted from the chart) 13:19 13:07 Chest Single View+RAD.RAD.BRZ ordered. [facility] EDAZ 15:01 14:52 03/03/2018 14:52 Discharged to Home. Impression: Chronic obstructive pulmonary pm1 disease, unspecified. Condition is Stable. Forms are Medication Reconciliation Form, Thank You Letter, Antibiotic Education, Prescription Opioid Use. Follow up: Emergency Department; When: As needed; Reason: Worsening of condition. Follow up: Private Physician; When: 2 - 3 days; Reason: Recheck today's complaints, Continuance of care, Re-evaluation by your physician. Problem is new. Symptoms have improved. pm1 15:07 15:01 03/03/2018 14:52 Discharged to Home. Impression: Chronic obstructive pulmonary tw2 disease, unspecified; Edema, unspecified - peripheral edema. Condition is Stable. Discharge Instructions: Chronic Obstructive Pulmonary Disease, Peripheral Edema. Prescriptions for Albuterol Sulfate 2.5 mg /3 mL (0.083 %) Inhalation Solution for Nebulization - inhale 1 unit by NEBULIZATION route every 8 hours As needed; 1 box, Albuterol Sulfate 90 mcg/actuation - inhale 1-2 puff by INHALATION route every 4-6 hours; 1 Inhaler. and Forms are Medication Reconciliation Form, Thank You Letter, Antibiotic Education. Follow up: Emergency Department; When: As needed; Reason: Worsening of condition. Follow up: Private Physician; When: 2 - 3 days; Reason: Recheck today's complaints, Continuance of care, Re-evaluation by your physician. Problem is new. Symptoms have improved. pm1
[2018-03-03 15:18] VITALS: TEMP 97.7
[2018-03-03 15:23] VITALS: BP 102/52; O2SAT 94
--- NOTE | 2018-03-03 19:46 | EKG ---
Test Date: 2018-03-03 Test Time: 13:17:41 Parquet Floor Layer'S Helper: TARIK MEASUREMENT RESULTS: Intervals: Rate: 66 OH: 260 QRSD: 86 QT: 434 QTc: 454 Hanna: P: 15 OH: 260 QRS: -28 T: 20 INTERPRETIVE STATEMENTS: Sinus rhythm with 1st degree AV block Possible Anterior infarct, age undetermined Abnormal ECG Compared to ECG 10/31/2017 19:22:34 Myocardial infarct finding now present Atrial premature complex(es) no longer present Left-axis deviation no longer present Incomplete right bundle-branch block no longer present T-wave abnormality no longer present Electronically Signed On 03-03-18 19:45:33 CRITICAL CARE PHYSICIAN by Max Chacko
== END 2018-03-03 15:07 | disposition home or self-care (01) ==
LOC: ER 12:39
DX: J44.9 Chronic obstructive pulmonary disease, unspecified (principal); I44.0 Atrioventricular block, first degree; R60.9 Edema, unspecified; Z88.1 Allergy status to other antibiotic agents; Z88.8 Allergy status to other drugs, medicaments and biological substances; Z79.4 Long term (current) use of insulin; E11.9 Type 2 diabetes mellitus without complications; F90.9 Attention-deficit hyperactivity disorder, unspecified type; E78.00 Pure hypercholesterolemia, unspecified; I10 Essential (primary) hypertension
CPT/HCPCS: 36415; 71046; 80048; 80076; 83735; 83880; 84484; 85025; 85610; 93005; 99285

== ENCOUNTER 2018-03-11 17:27 | Emergency (ER) | payer OTHER ==
--- NOTE | 2018-03-11 18:41 | RAD REPORT ---
EXAM DESCRIPTION: CT - Stone Protocol - 03/11/2018 6:21 pm CLINICAL HISTORY: Abdominal pain, flank pain, dysuria COMPARISON: CT study October 2015 TECHNIQUE: Axial 5 mm thick images were obtained without oral or IV contrast. The [id number] span s the entirety of the system partially obscuring uppermost abdomen and lung bases. All CT scans are performed using dose optimization technique as appropriate and may include automated exposure control or mA/KV adjustment according to patient size. FINDINGS: No hydronephrosis is present and no obstructing ureteral calculi. No suspicious renal mass es. Isodense masses and pyelonephritis are not excluded on a stone protocol CT scan. No urinary bladd er suspicious finding. No significant adrenal finding. Imaged portions of the liver, spleen and pancreas show no suspicious findings on non-contrast imaging . Gallbladder is packed with multiple gallstones. No biliary tree dilatation. Stones have increased i n number since 2016. Active gallbladder process is not seen. No suspicious bowel findings. Minimal diverticulosis without diverticulitis. Minimal periumbilical fat only hernia. No mass or bulky lymphadenopathy. No free air, free fluid or i nflammatory stranding. Disc and bony degenerative changes are present. IMPRESSION: No acute finding. Isodense masses and pyelonephritis are not excluded on stone protocol technique. Multi stone cholelithiasis progressive from 2016. No biliary tree dilatation. No active gallbladder f inding.
[2018-03-11 18:50] LABS: Absolute Lymphocytes (CBC) 1.9 K/uL (0.7-4.9); Absolute Monocytes 0.8 K/uL (0.1-1.3); Absolute Neutrophil 4.7 K/uL (1.8-8.0); Basophils % 1.2 % (0-1.3); Eosinophils % 2.6 % (0-4.4); Lymphocytes % 25.5 % (15.3-44.8); MPV 9.3 fL (7.6-11.3); Monocytes % 9.9 % (3.3-12.3); RBC Red Blood Cell Count 5.42 M/uL (3.86-4.86)
[2018-03-11 19:03] LABS: Albumin 3.4 g/dL (3.4-5.0); Bilirubin Direct 0.1 mg/dL (0-0.2); Bilirubin Total 0.4 mg/dL (0.2-1.0); Potassium 3.5 mmol/L (3.5-5.1); Protein, Total 7.3 g/dL (6.4-8.2)
[2018-03-11 19:22] LABS: Urine Bacteria 20-50 /HPF (<20); Urine Culture Reflex Order NOT NEEDED; Urine RBC <5 /HPF (NONE SEEN)
[2018-03-11 19:52] LABS: Urine Blood NEGATIVE (NEG); Urine Glucose NEGATIVE (NEG); Urine Protein NEGATIVE (NEG)
--- NOTE | 2018-03-11 20:05 | EDPHYS ---
Physician Documentation [facility] Name: Francine Lemons Age: 77 yrs Sex: Female : 1940 Arrival Date: 03/11/2018 Time: 17:30 Bed 6 Private MD: Gareth Renae ED Physician Nilo Ansari HPI: 03/11 18:08 This 77 yrs old Female presents to ER via Ambulatory with complaints of Blood jmm Sugar Problem, Urinary Problem. 18:08 The patient presents with pain that is acute, with no known mechanism of injury. Onset: jmm The symptoms/episode began/occurred gradually, 3 day(s) ago. The pain does not radiate. Associated signs and symptoms: Pertinent negatives: fever, vomiting. 20:23 This is a 77 year old female with a history of dm, chf, that presents to the ED with jmm complaints of dysuria, bilaterally back pain beginning approx 3 days ago. Patient denies fever. patient also complains of lower back pain. denies fever, vomiting, diarrhea. . Historical: - Allergies: 17:52 Azithromycin; ph 17:52 Iodine; ph 17:52 Prednisone; ph - PMHx: 17:52 ADD/ADHD; Anxiety; CHF; Chronic pain; COPD; Diabetes - IDDM; High Cholesterol; ph Hypertension; lymphedema; stasis neuropathy; - PSHx: 17:52 Hysterectomy; Tonsillectomy; Appendectomy; ph - Immunization history:: Adult Immunizations up to date. - Social history:: Smoking status: . ROS: 20:23 Constitutional: Negative for fever, chills, and weight loss, Cardiovascular: Negative jmm for chest pain, palpitations, and edema, Respiratory: Negative for shortness of breath, cough, wheezing, and pleuritic chest pain. 20:23 Abdomen/GI: Positive for abdominal pain. 20:23 Back: Positive for pain at rest, flank pain, bilaterally. 20:23 : Positive for urinary symptoms. 20:23 All other systems are negative. Exam: 20:23 Constitutional: This is a well developed, well nourished patient who is awake, alert, jmm and in no acute distress. Head/Face: atraumatic. Eyes: EOMI, no conjunctival erythema appreciated ENT: Moist Mucus Membranes Neck: Trachea midline, Supple Chest/axilla: Normal chest wall appearance and motion. Cardiovascular: Regular rate and rhythm. No edema appreciated Respiratory: Normal respirations, no respiratory distress appreciated 20:23 Abdomen/GI: Inspection: abdomen appears normal, Bowel sounds: normal, Palpation: soft, mild abdominal tenderness, in the suprapubic area and left lower quadrant. 20:23 Back: CVA tenderness, that is mild, is noted bilaterally. 20:23 Musculoskeletal/extremity: ROM: intact in all extremities. 20:23 Skin: Appearance: Color: normal in color. 20:23 Neuro: Orientation: is normal, Mentation: is normal, Memory: is normal. 20:23 Psych: Behavior/mood is pleasant, cooperative. Vital Signs: 17:55 BP 131 / 70; Pulse 90; Resp 22; Temp 97.7; Pulse Ox 95% on R/A; Weight 111.13 kg; ph Height 5 ft. 3 in. (160.02 cm); Pain 9/10; 19:34 BP 129 / 71; Pulse 76; Resp 18; Pulse Ox 96% on R/A; Pain 9/10; ed1 17:55 Body Mass Index 43.40 (111.13 kg, 160.02 cm) ph MDM: 18:08 Patient medically screened. [facility] 20:02 Data reviewed: vital signs, nurses notes, lab test result(s). Counseling: I had a [facility] detailed discussion with the patient and/or guardian regarding: the historical points, exam findings, and any diagnostic results supporting the discharge/admit diagnosis, radiology results, the need for outpatient follow up, to return to the emergency department if symptoms worsen or persist or if there are any questions or concerns that arise at home. ED course: Patient is alert and non toxic in appearance in the ED. Labs unremarkable. Patient will be treated for dysuria and given strict return precautions. Patient understood and agrees with the plan of care. . 03/11 18:08 Order name: Basic Metabolic Panel; Complete Time: 19:17 [facility] 03/11 18:08 Order name: CBC with Diff; Complete Time: 19:17 [facility] 03/11 18:08 Order name: Creatinine for Radiology; Complete Time: 19:17 [facility] 03/11 18:08 Order name: Hepatic Function; Complete Time: 19:17 [facility] 03/11 18:08 Order name: Lipase; Complete Time: 19:17 [facility] 03/11 18:08 Order name: Urine Microscopic Only; Complete Time: 20:02 [facility] 03/11 18:08 Order name: IV Saline Lock; Complete Time: 18:40 [facility] 03/11 18:08 Order name: Labs collected and sent; Complete Time: 18:40 [facility] 03/11 18:08 Order name: Urine Dipstick-Ancillary (obtain specimen); Complete Time: 18:40 [facility] 03/11 18:08 Order name: CT Stone Protocol; Complete Time: 18:46 [facility] 03/11 18:39 Order name: Urine Dipstick--Ancillary (enter results); Complete Time: 20:02 eb Administered Medications: No medications were administered Disposition: 03/12 06:44 Co-signature as Attending Physician, Nilo Ansari MD I agree with the assessment and kdr plan of care. Disposition: 03/11/18 20:03 Discharged to Home. Impression: Urinary tract infection, site not specified. - Condition is Stable. - Discharge Instructions: Urinary Tract Infection, Adult. - Prescriptions for Cephalexin 500 mg Oral Capsule - take 1 capsule by ORAL route every 6 hours for 10 days; 40 capsule. - Medication Reconciliation Form, Thank You Letter, Antibiotic Education, Prescription Opioid Use form. - Follow up: Gareth Renae MD; When: 2 - 3 days; Reason: Recheck today's complaints, Continuance of care, Re-evaluation by your physician. Signatures: Dispatcher [employer] EDMS Nilo Ansari MD MD kdr Mickail, Joel, PA PA [facility] Pauline Jain RN RN ed1 Halima Frederick RN RN ph Corrections: (The following items were deleted from the chart) 03/11 20:20 20:03 03/11/2018 20:03 Discharged to Home. Impression: Urinary tract infection, site ed1 not specified. Condition is Stable. Forms are Medication Reconciliation Form, Thank You Letter, Antibiotic Education, Prescription Opioid Use. Follow up: Gareth Renae; When: 2 - 3 days; Reason: Recheck today's complaints, Continuance of care, Re-evaluation by your physician. [facility]
--- NOTE | 2018-03-11 20:05 | ER ---
Nurse's Notes [facility] Name: Francine Lemons Age: 77 yrs Sex: Female : 1940 Arrival Date: 03/11/2018 Time: 17:30 Bed 6 Private MD: Gareth Renae Diagnosis: Urinary tract infection, site not specified Presentation: 03/11 17:49 Presenting complaint: Patient states: " My sugar has has been fluctuating and my ph kidneys are hurting." Reports BGL [id number] at home, back pain and maurisio lower abdominal pain, also reports nausea and difficulty urinating. Transition of care: patient was not received from another setting of care. Onset of symptoms was March 11, 2018. Risk Assessment: Do you want to hurt yourself or someone else? Patient reports no desire to harm self or others. Care prior to arrival: None. 17:49 Method Of Arrival: Ambulatory ph 17:49 Acuity: AURELIO 3 ph Historical: - Allergies: 17:52 Azithromycin; ph 17:52 Iodine; ph 17:52 Prednisone; ph - PMHx: 17:52 ADD/ADHD; Anxiety; CHF; Chronic pain; COPD; Diabetes - IDDM; High Cholesterol; ph Hypertension; lymphedema; stasis neuropathy; - PSHx: 17:52 Hysterectomy; Tonsillectomy; Appendectomy; ph - Immunization history:: Adult Immunizations up to date. - Social history:: Smoking status: . Screenin:30 Abuse screen: Denies threats or abuse. Denies injuries from another. Nutritional sv screening: No deficits noted. Tuberculosis screening: No symptoms or risk factors identified. Fall Risk None identified. Assessment: 18:10 General: Appears in no apparent distress. comfortable, well groomed, well developed, sg well nourished, Behavior is calm, cooperative, appropriate for age. Pain: Complains of pain in posterior aspect of left lateral abdomen and right lower quadrant Quality of pain is described as sharp, stabbing. Neuro: No deficits noted. Cardiovascular: Patient's skin is warm and dry. Chest pain is denied. Respiratory: Airway is patent Respiratory effort is even, unlabored, Respiratory pattern is regular, symmetrical. GI: Abdomen is round non-distended. : No signs and/or symptoms were reported regarding the genitourinary system. EENT: No signs and/or symptoms were reported regarding the EENT system. Derm: Skin is pink, warm \\T\\ dry. Musculoskeletal: No signs and/or symptoms reported regarding the musculoskeletal system. 19:34 Reassessment: Patient appears in no apparent distress at this time. No changes from ed1 previously documented assessment. Patient and/or family updated on plan of care and expected duration. Pain level reassessed. Patient is alert, oriented x 3, equal unlabored respirations, skin warm/dry/pink. Patient states symptoms have not improved. Vital Signs: 17:55 BP 131 / 70; Pulse 90; Resp 22; Temp 97.7; Pulse Ox 95% on R/A; Weight 111.13 kg; ph Height 5 ft. 3 in. (160.02 cm); Pain 9/10; 19:34 BP 129 / 71; Pulse 76; Resp 18; Pulse Ox 96% on R/A; Pain 9/10; ed1 17:55 Body Mass Index 43.40 (111.13 kg, 160.02 cm) ph ED Course: 17:30 Patient arrived in ED. sb2 17:30 Gareth Renae MD is Private Physician. sb2 17:51 Triage completed. ph 17:53 Arm band placed on. ph 18:02 Shravan Monsivais PA is PHCP. jmm 18:02 Nilo Ansari MD is Attending Physician. jmm 18:[address] nj 18:22 CT Stone Protocol In Process Unspecified. EDMS 18:27 Iraj Mcmillan, PILO is Primary Nurse. sg 18:30 Patient has correct armband on for positive identification. sv 18:35 Initial lab(s) drawn, by ct, sent to lab. Inserted saline lock: 20 gauge in right sv forearm, using aseptic technique. Blood collected. Flushed right forearm with 5 ml normal saline. 18:41 Urine Dipstick--Ancillary (enter results) Sent. sv 19:11 Report given to Mery RN, Pauline RN, Melissa RN. sv 19:15 Primary Nurse role handed off by Iraj Mcmillan, PILO ed1 19:15 Pauline Jain, PILO is Primary Nurse. ed1 19:35 Awaiting disposition. ed1 20:03 Gareth Renae MD is Referral Physician. jm 20:17 No provider procedures requiring assistance completed. IV discontinued, intact, ed1 bleeding controlled, No redness/swelling at site. Pressure dressing applied. Administered Medications: No medications were administered Outcome: 20:03 Discharge ordered by . judy 20:17 Discharged to home ambulatory. ed1 20:17 Condition: good 20:17 Discharge instructions given to patient, Instructed on discharge instructions, follow up and referral plans. medication usage, Demonstrated understanding of instructions, follow-up care, medications, Prescriptions given X 1. 20:20 Patient left the ED. ed1 Signatures: Dispatcher [employer] Migdalia Rose, RN PILO Iraj Mcmillan RN RN sg Shravan Monsivais PA PA jmm Riggs, Erika, RN RN ed1 Halima Frederick RN RN Carl, Bere May sb2
[2018-03-11 20:26] VITALS: TEMP 97.7
[2018-03-11 20:31] VITALS: BP 129/71; O2SAT 96
== END 2018-03-11 20:20 | disposition home or self-care (01) ==
LOC: ER 17:27
DX: N39.0 Urinary tract infection, site not specified (principal); E11.9 Type 2 diabetes mellitus without complications; I50.9 Heart failure, unspecified; I10 Essential (primary) hypertension; Z88.1 Allergy status to other antibiotic agents; Z88.8 Allergy status to other drugs, medicaments and biological substances; Z91.048 Other nonmedicinal substance allergy status
CPT/HCPCS: 36415; 74176; 76377; 80048; 80076; 81003; 81015; 83690; 85025; 99284

== ENCOUNTER 2018-03-25 20:15 | Emergency (ER) | payer OTHER ==
[2018-03-25 21:29] LABS: Absolute Monocytes 0.6 K/uL (0.1-1.3); Absolute Neutrophil 4.4 K/uL (1.8-8.0); Basophils % 0.9 % (0-1.3); Eosinophils % 3.3 % (0-4.4); Hematocrit 40.4 % (36.0-45.0); MPV 9.1 fL (7.6-11.3); Monocytes % 8.6 % (3.3-12.3); RBC Red Blood Cell Count 4.85 M/uL (3.86-4.86)
[2018-03-25 21:35] LABS: Protime INR 1.02
[2018-03-25 21:49] LABS: ALT/SGPT 14 U/L (12-78); AST/SGOT 9 U/L (15-37); Albumin 3.1 g/dL (3.4-5.0); Alkaline Phosphatase 128 U/L (45-117); BUN Blood Urea Nitrogen 13 mg/dL (7-18); Bicarbonate 32 mmol/L (21-32); Bilirubin Direct < 0.1 mg/dL (0-0.2); Bilirubin Total 0.3 mg/dL (0.2-1.0); CKMB Creatine Kinase MB 1.2 ng/mL (0.3-3.6); Creatine Phosphokinase 39 U/L (26-192); Glucose Level 259 mg/dL (74-106); Lipase 104 U/L (73-393); NT PRO-BNP 70 pg/mL (<450); Potassium 3.9 mmol/L (3.5-5.1); Protein, Total 6.4 g/dL (6.4-8.2); Sodium Level 138 mmol/L (136-145); Troponin (Emerg Dept Use Only) < 0.02 ng/mL (0.0-0.045)
--- NOTE | 2018-03-25 22:15 | ER ---
Nurse's Notes [facility] Name: Francine Lemons Age: 77 yrs Sex: Female : 1940 Arrival Date: 03/25/2018 Time: 20:23 Bed 20 Private MD: Gareth Renae Diagnosis: Bronchitis, not specified as acute or chronic Presentation: 03/25 20:32 Presenting complaint: Patient states: "I have a bad cough and I'm congested and I cant aj1 cough anything up, and it hurts all the way across when I cough (pt points to diaphragmatic area)" Reports subjective fever at home, shortness of breath. States that she went to the doctor this morning, states "They gave me a Z-pack but they don't work on me". Transition of care: patient was not received from another setting of care. Onset of symptoms was March 25, 2018. Risk Assessment: Do you want to hurt yourself or someone else? Patient reports no desire to harm self or others. Initial Sepsis Screen: Does the patient meet any 2 criteria? No. Patient's initial sepsis screen is negative. Does the patient have a suspected source of infection? No. Patient's initial sepsis screen is negative. Care prior to arrival: None. 20:32 Method Of Arrival: Ambulatory aj1 20:32 Acuity: AURELIO 3 aj1 Triage Assessment: 20:36 General: Appears in no apparent distress. comfortable, Behavior is calm, cooperative, aj1 appropriate for age. Pain: Complains of pain in diaphragm Pain currently is 9 out of 10 on a pain scale. Neuro: Level of Consciousness is awake, alert, obeys commands. Cardiovascular: Patient's skin is warm and dry. Respiratory: Reports shortness of breath cough that is dry, persistent Airway is patent Respiratory effort is even, unlabored, Respiratory pattern is regular, symmetrical. Historical: - Allergies: 20:36 Azithromycin; aj1 20:36 Iodine; aj1 20:36 Prednisone; aj1 - Home Meds: 20:36 Albuterol Inhl [Active]; Bumetanide Oral [Active]; carvedilol Oral [Active]; gabapentin aj1 Oral [Active]; losartan Oral [Active]; Metformin Oral [Active]; metolazone Oral [Active]; Novolin 70/30 [place] Sub-Q [Active]; Potassium Chloride Oral [Active]; Promethazine Oral [Active]; Simvastatin Oral [Active]; Singulair Oral [Active]; Spironolactone Oral [Active]; Tresiba FlexTouch U-100 subcutaneous [Active]; Xanax Oral [Active]; - PMHx: 20:36 ADD/ADHD; Anxiety; CHF; Chronic pain; COPD; Diabetes - IDDM; High Cholesterol; aj1 Hypertension; lymphedema; stasis neuropathy; - Immunization history:: Flu vaccine is up to date. - Social history:: Smoking status: Patient/guardian denies using tobacco. - Ebola Screening: : Patient denies travel to an Ebola-affected area in the 21 days before illness onset. Screenin:00 Abuse screen: Denies threats or abuse. Nutritional screening: No deficits noted. jb4 Tuberculosis screening: No symptoms or risk factors identified. Fall Risk Ambulatory Aid- Crutches/Cane/Walker (15 pts). Total Meza Fall Scale indicates No Risk (0-24 pts). Assessment: 21:00 General: Appears in no apparent distress. comfortable, Behavior is calm, cooperative, jb4 appropriate for age. Pain: Denies pain. Neuro: Level of Consciousness is awake, alert, obeys commands, Oriented to person, place, time, situation. Cardiovascular: Heart tones S1 S2 present Patient's skin is warm and dry. Rhythm is sinus rhythm. Respiratory: Reports cough that is non-productive, Congestion. Airway is patent Respiratory effort is even, unlabored, Respiratory pattern is regular, symmetrical, Breath sounds are clear bilaterally. GI: No signs and/or symptoms were reported involving the gastrointestinal system. : No signs and/or symptoms were reported regarding the genitourinary system. EENT: No signs and/or symptoms were reported regarding the EENT system. Derm: Skin is intact, Skin is pink, warm \\T\\ dry. Musculoskeletal: Circulation, motion, and sensation intact. 22:00 Reassessment: Patient appears in no apparent distress at this time. Patient and/or jb4 family updated on plan of care and expected duration. Pain level reassessed. Patient is alert, oriented x 3, equal unlabored respirations, skin warm/dry/pink. Vital Signs: 20:36 BP 167 / 79; Pulse 73; Resp 18; Temp 97.0; Pulse Ox 96% on R/A; Weight 106.59 kg (R); aj1 Height 5 ft. 3 in. (160.02 cm) (R); Pain 7/10; 21:15 BP 145 / 71; Pulse 67; Resp 18; Pulse Ox 95% on R/A; jb4 20:36 Body Mass Index 41.63 (106.59 kg, 160.02 cm) aj1 ED Course: 20:23 Patient arrived in ED. es 20:23 Gareth Renae MD is Private Physician. es 20:29 Dani Springer MD is Attending Physician. tw4 20:34 Triage completed. aj1 20:34 Radiology exam delayed due to PT IN TRAIGE. az 20:36 Arm band placed on Patient placed in an exam room. aj1 20:42 Lan Ford, RN is Primary Nurse. jb4 21:00 Patient has correct armband on for positive identification. Bed in low position. Call jb4 light in reach. Side rails up X 1. Pulse ox on. NIBP on. 21:00 Inserted saline lock: 20 gauge in right forearm, using aseptic technique. jb4 21:21 XRAY Chest Pa And Lat (2 Views) In Process Unspecified. EDMS 22:13 Gareth Renae MD is Referral Physician. tw4 22:31 No provider procedures requiring assistance completed. IV discontinued, intact, jb4 bleeding controlled. Administered Medications: No medications were administered Outcome: 21:00 Discharged to home ambulatory. jb4 21:00 Condition: stable 21:00 Discharge instructions given to patient, Instructed on discharge instructions, follow up and referral plans. Demonstrated understanding of instructions, follow-up care, medications, Prescriptions given X 4. 22:14 Discharge ordered by . tw4 22:33 Patient left the ED. jb4 Signatures: Dispatcher [employer] EDMS Richa Sutton RN RN aj1 Gloria Louie Lan Ford, RN RN jb4 Dani Springer MD MD tw4 Kelli Zee nh
--- NOTE | 2018-03-25 22:15 | EDPHYS ---
Physician Documentation [facility] Name: Francine Lemons Age: 77 yrs Sex: Female : 1940 Arrival Date: 03/25/2018 Time: 20:23 Bed 20 Private MD: Gareth Renae ED Physician Dani Springer HPI: 03/26 06:38 This 77 yrs old Female presents to ER via Ambulatory with complaints of tw4 Congestion, Cough. 06:38 The patient or guardian reports cough. Onset: The symptoms/episode began/occurred 3 tw4 day(s) ago. Severity of symptoms: At their worst the symptoms were moderate, in the emergency department the symptoms are unchanged. Modifying factors: The symptoms are alleviated by nothing, the symptoms are aggravated by nothing. Associated signs and symptoms: The patient has no apparent associated signs or symptoms. The patient has experienced similar episodes in the past, a few times. Historical: - Allergies: 03/25 20:36 Azithromycin; aj1 20:36 Iodine; aj1 20:36 Prednisone; aj1 - Home Meds: 20:36 Albuterol Inhl [Active]; Bumetanide Oral [Active]; carvedilol Oral [Active]; gabapentin aj1 Oral [Active]; losartan Oral [Active]; Metformin Oral [Active]; metolazone Oral [Active]; Novolin 70/30 [place] Sub-Q [Active]; Potassium Chloride Oral [Active]; Promethazine Oral [Active]; Simvastatin Oral [Active]; Singulair Oral [Active]; Spironolactone Oral [Active]; Tresiba FlexTouch U-100 subcutaneous [Active]; Xanax Oral [Active]; - PMHx: 20:36 ADD/ADHD; Anxiety; CHF; Chronic pain; COPD; Diabetes - IDDM; High Cholesterol; aj1 Hypertension; lymphedema; stasis neuropathy; - Immunization history:: Flu vaccine is up to date. - Social history:: Smoking status: Patient/guardian denies using tobacco. - Ebola Screening: : Patient denies travel to an Ebola-affected area in the 21 days before illness onset. ROS: 03/26 06:38 Constitutional: Negative for fever, chills, and weight loss, Eyes: Negative for injury, tw4 pain, redness, and discharge, Cardiovascular: Negative for chest pain, palpitations, and edema, Abdomen/GI: Negative for abdominal pain, nausea, vomiting, diarrhea, and constipation, Back: Negative for injury and pain, : Negative for injury, bleeding, discharge, and swelling, MS/Extremity: Negative for injury and deformity. Skin: Negative for injury, rash, and discoloration, Neuro: Negative for headache, weakness, numbness, tingling, and seizure. Respiratory: Positive for cough, "sounds productive", shortness of breath, wheezing. Exam: 06:38 Constitutional: This is a well developed, well nourished patient who is awake, alert, tw4 and in no acute distress. Head/Face: Normocephalic, atraumatic. Chest/axilla: Normal chest wall appearance and motion. Nontender with no deformity. No lesions are appreciated. Cardiovascular: Regular rate and rhythm with a normal S1 and S2. No gallops, murmurs, or rubs. Normal PMI, no JVD. No pulse deficits. 06:38 MS/ Extremity: Pulses equal, no cyanosis. Neurovascular intact. Full, normal range of motion. Neuro: Awake and alert, GCS 15, oriented to person, place, time, and situation. Cranial nerves II-XII grossly intact. Motor strength 5/5 in all extremities. Sensory grossly intact. Cerebellar exam normal. Normal gait. 06:38 Respiratory: the patient does not display signs of respiratory distress, Respirations: normal, Breath sounds: rhonchi, that are mild, are scattered. Vital Signs: 03/25 20:36 BP 167 / 79; Pulse 73; Resp 18; Temp 97.0; Pulse Ox 96% on R/A; Weight 106.59 kg (R); aj1 Height 5 ft. 3 in. (160.02 cm) (R); Pain 7/10; 21:15 BP 145 / 71; Pulse 67; Resp 18; Pulse Ox 95% on R/A; jb4 20:36 Body Mass Index 41.63 (106.59 kg, 160.02 cm) aj1 MDM: 20:42 Patient medically screened. tw4 03/26 06:38 Differential Diagnosis: Obstructed Airway Bronchitis Influenza Upper Respiratory tw4 Infection Pharyngitis Pneumonia Tracheal Injury. Data reviewed: vital signs, nurses notes. Counseling: I had a detailed discussion with the patient and/or guardian regarding: the historical points, exam findings, and any diagnostic results supporting the discharge/admit diagnosis, lab results, radiology results. Special discussion: I discussed with the patient/guardian in detail that at this point there is no indication for admission to the hospital. It is understood, however, that if the symptoms persist or worsen the patient needs to return immediately for re-evaluation. 06:38 Data interpreted: Pulse oximetry:. 03/25 20:30 Order name: Blood Culture Adult (2) 03/25 20:30 Order name: BMP; Complete Time: 22:07 03/25 22:07 Interpretation: Normal except: GLUC 259; GFR 69. 03/25 20:30 Order name: CBC with Diff; Complete Time: 22:09 03/25 22:09 Interpretation: Within normal limits. 03/25 20:30 Order name: Ckmb; Complete Time: 22:09 03/25 22:09 Interpretation: Within normal limits: CKMB 1.2. 03/25 20:30 Order name: CPK; Complete Time: 22:10 03/25 22:10 Interpretation: Within normal limits: CPK 39. 03/25 20:30 Order name: D-Dimer; Complete Time: 22:07 03/25 22:07 Interpretation: Normal except: D-DIMER 574. 03/25 20:30 Order name: XRAY Chest Pa And Lat (2 Views) 03/25 20:30 Order name: Hepatic Function; Complete Time: 22:09 03/25 22:09 Interpretation: AST 9; ALK 128; ALB 3.1; A/G 0.9. 03/25 20:30 Order name: Lipase; Complete Time: 22:10 03/25 22:10 Interpretation: Within normal limits: LIP 104. 03/25 20:30 Order name: Magnesium; Complete Time: 22:10 03/25 22:10 Interpretation: Within normal limits: MG 2.0. 03/25 20:30 Order name: NT PRO-BNP; Complete Time: 22:10 03/25 20:30 Order name: PT-INR; Complete Time: 22:10 03/25 22:10 Interpretation: Within normal limits: PT 12.0. 03/25 20:30 Order name: Ptt, Activated 03/25 20:30 Order name: Troponin (emerg Dept Use Only); Complete Time: 22:13 03/25 20:30 Order name: EKG; Complete Time: 20:31 03/25 20:30 Order name: Cardiac monitoring; Complete Time: 21:03/25 20:30 Order name: EKG - Nurse/Tech; Complete Time: 21:03/25 20:30 Order name: IV Saline Lock; Complete Time: :47 03/25 20:30 Order name: Labs collected and sent; Complete Time: :03/25 20:30 Order name: O2 Per Protocol; Complete Time: :03/25 20:30 Order name: O2 Sat Monitoring; Complete Time: : EC:38 Rate is 73 beats/min. Rhythm is regular, 1st Degree Block. QRS [place] is Normal. [place] tw4 interval is normal. QRS interval is normal. QT interval is normal. No Q waves. T waves are Normal. No ST changes noted. Clinical impression: 1st degree heart block. Interpreted by me. Reviewed by me. Administered Medications: No medications were administered Disposition: 03/25/18 22:14 Discharged to Home. Impression: Bronchitis, not specified as acute or chronic. - Condition is Stable. - Discharge Instructions: Acute Bronchitis, Adult, Upper Respiratory Infection, Adult. - Prescriptions for Tessalon Perles 100 mg Oral Capsule - take 1 capsule by ORAL route every 8 hours As needed; 15 capsule. Albuterol Sulfate 90 mcg/actuation - inhale 1-2 puff by INHALATION route every 4-6 hours; 1 Inhaler. Guaifenesin AC 10- 100 mg/5 mL Oral Liquid - take 10 milliliter by ORAL route every 4 hours As needed; 240 milliliter. Augmentin 875- 125 mg Oral Tablet - take 1 tablet by ORAL route every 12 hours for 10 days; 20 tablet. - Medication Reconciliation Form, Thank You Letter, Antibiotic Education, Prescription Opioid Use form. - Follow up: Gareth Renae MD; When: Upon discharge from the Emergency Department; Reason: If symptoms return, Recheck today's complaints, Continuance of care. - Problem is new. - Symptoms have improved. Signatures: Dispatcher [employer] EDRicha Harrington RN RN aj1 Lan Ford RN RN jb4 Dani Springer MD MD tw4 Corrections: (The following items were deleted from the chart) 03/25 22:33 22:14 03/25/2018 22:14 Discharged to Home. Impression: Bronchitis, not specified as jb4 acute or chronic. Condition is Stable. Forms are Medication Reconciliation Form, Thank You Letter, Antibiotic Education, Prescription Opioid Use. Follow up: Gareth Renae; When: Upon discharge from the Emergency Department; Reason: If symptoms return, Recheck today's complaints, Continuance of care. Problem is new. Symptoms have improved. tw4
[2018-03-25 23:32] VITALS: TEMP 97
[2018-03-25 23:33] VITALS: BP 145/71; O2SAT 95
--- NOTE | 2018-03-26 07:46 | EKG ---
Test Date: 2018-03-25 Test Time: 20:53:20 Airline Mechanic: JOCELYN MEASUREMENT RESULTS: Intervals: Rate: 73 NJ: 228 QRSD: 88 QT: 390 QTc: 429 [place]: P: 82 NJ: 228 QRS: -28 T: 38 INTERPRETIVE STATEMENTS: Sinus rhythm with marked sinus arrhythmia with 1st degree AV block Possible Anterior infarct, age undetermined Abnormal ECG Compared to ECG 03/03/2018 13:17:41 No significant changes Electronically Signed On 03-26-18 06:51:49 THROAT CUTTER by Max Chacko
--- NOTE | 2018-03-26 08:47 | RAD REPORT ---
EXAM DESCRIPTION: RAD - Chest Pa And Lat (2 Views) - 03/25/2018 9:23 pm CLINICAL HISTORY: Cough, congestion and fever COMPARISON: 04/28/2018 TECHNIQUE: 2119 hours FINDINGS: The lungs are fibrotic as a baseline. No focal consolidation or mass. Interstitial pattern is not substantially different from comparison. Heart size is normal and central vasculature is wi thin normal limits. No pleural effusion or pneumothorax seen. No acute bony finding noted. No aort ic abnormality. IMPRESSION: Chronic interstitial lung disease similar to comparison. No acute finding.
== END 2018-03-25 22:33 | disposition home or self-care (01) ==
LOC: ER 20:15
DX: J40 Bronchitis, not specified as acute or chronic (principal); I10 Essential (primary) hypertension; I50.9 Heart failure, unspecified; J44.9 Chronic obstructive pulmonary disease, unspecified; E11.9 Type 2 diabetes mellitus without complications; E78.00 Pure hypercholesterolemia, unspecified; F41.9 Anxiety disorder, unspecified; Z79.4 Long term (current) use of insulin; Z88.1 Allergy status to other antibiotic agents; Z88.8 Allergy status to other drugs, medicaments and biological substances; Z91.048 Other nonmedicinal substance allergy status
CPT/HCPCS: 36415; 71046; 80048; 80076; 82550; 82553; 83690; 83735; 83880; 84484; 85025; 85379; 85610; 85730; 87040; 87205; 93005; 99284

== ENCOUNTER 2018-04-03 08:16 | Emergency (ER) | payer OTHER ==
--- NOTE | 2018-04-03 09:02 | RAD REPORT ---
EXAM DESCRIPTION: CT - [id number] - 04/03/2018 8:53 am CLINICAL HISTORY: Trauma, head and neck injury. fall COMPARISON: [id number] dated 11/06/2009 TECHNIQUE: Axial 5 mm thick images of the head were obtained. Axial 2 mm thick images of the cervical spine were obtained with sagittal and coronal reconstruction images generated and reviewed. All CT scans are performed using dose optimization technique as appropriate and may include automated exposure control or mA/KV adjustment according to patient size. FINDINGS: CT HEAD WITHOUT CONTRAST: No acute hemorrhage, hydrocephalus or extra-axial collection is identified.No areas of brain edema or midline shift. The paranasal sinuses and mastoids are clear.The calvarium is intact. CT CERVICAL SPINE WITHOUT CONTRAST: No fracture or subluxation.Moderate lower cervical spondylosis.No prevertebral soft tissues swelling is identified. IMPRESSION: No acute intracranial or cervical spine findings. Moderate lower cervical spondylosis.
[2018-04-03 09:47] LABS: Absolute Lymphocytes (CBC) 1.6 K/uL (0.7-4.9); Absolute Monocytes 0.5 K/uL (0.1-1.3); Absolute Neutrophil 5.6 K/uL (1.8-8.0); Basophils % 0.6 % (0-1.3); Eosinophils % 1.8 % (0-4.4); Hematocrit 39.8 % (36.0-45.0); Lymphocytes % 19.7 % (15.3-44.8); MPV 9.1 fL (7.6-11.3); RBC Red Blood Cell Count 4.85 M/uL (3.86-4.86)
[2018-04-03] MEDS ORDERED: DOXYCYCLINE 100 MG CAP PO ONE (09:55)
[2018-04-03] MEDS ORDERED: SMZ./TMP. 800/160 MG TABLET ONE (09:55)
[2018-04-03 10:19] LABS: Albumin 3.1 g/dL (3.4-5.0); Bilirubin Total 0.3 mg/dL (0.2-1.0); Potassium 3.7 mmol/L (3.5-5.1); Protein, Total 6.2 g/dL (6.4-8.2)
--- NOTE | 2018-04-03 10:31 | ER ---
Nurse's Notes [facility] Name: Francine Lemons Age: 77 yrs Sex: Female : 1940 Arrival Date: 04/03/2018 Time: 08:19 Bed 6 Private MD: Gareth Renae Diagnosis: Fall due to bumping against object;Headache;Superficial injury of head;Cellulitis and acute lymphangitis of other parts of limb;Type 1 diabetes mellitus Presentation: 04/03 08:21 Care prior to arrival: None. Mechanism of Injury: Fall from standing position. Trauma hb event details: Injury occurred in the [facility], Injury occurred: at home. Injury occurred: April 03, 2018. 08:21 Acuity: AURELIO 2 hb 08:21 Method Of Arrival: Ambulatory hb 08:29 Presenting complaint: Patient states: I was walking with my walker and I cant really ch feel my feet, they are swollen for years. I tripped on something and fell, I hit the L top side of my head really hard. then my son couldn't get me up off the floor for at least 30 min. 08:39 Transition of care: patient was not received from another setting of care. Onset of ch symptoms was April 03, 2018 at 07:00. Risk Assessment: Do you want to hurt yourself or someone else? Patient reports no desire to harm self or others. Initial Sepsis Screen: Does the patient meet any 2 criteria? No. Patient's initial sepsis screen is negative. Does the patient have a suspected source of infection? No. Patient's initial sepsis screen is negative. Trauma Activation: Alert Physician: ED Physician; Name: ; Notified At: ; Arrived At: Physician: General Surgeon; Name: ; Notified At: ; Arrived At: Physician: Radiology; Name: ; Notified At: ; Arrived At: Physician: Respiratory; Name: ; Notified At: ; Arrived At: Physician: Lab; Name: ; Notified At: ; Arrived At: Historical: - Allergies: 08:24 Azithromycin; hb 08:24 Iodine; hb 08:24 Prednisone; hb - Home Meds: 08:24 Albuterol Inhl [Active]; Bumetanide Oral [Active]; carvedilol Oral [Active]; gabapentin hb Oral [Active]; losartan Oral [Active]; Metformin Oral [Active]; metolazone Oral [Active]; Novolin 70/30 [place] Sub-Q [Active]; Potassium Chloride Oral [Active]; Promethazine Oral [Active]; Simvastatin Oral [Active]; Singulair Oral [Active]; Spironolactone Oral [Active]; Tresiba FlexTouch U-100 subcutaneous [Active]; Xanax Oral [Active]; - PMHx: 08:24 ADD/ADHD; Anxiety; CHF; Diabetes - IDDM; Chronic pain; COPD; High Cholesterol; hb Hypertension; lymphedema; stasis neuropathy; - Social history:: Smoking status: Patient/guardian denies using tobacco. - Immunization history: Last tetanus immunization: - up to date. - Ebola Screening: : No symptoms or risks identified at this time. Screenin:25 Abuse screen: Denies threats or abuse. Denies injuries from another. Tuberculosis hb screening: No symptoms or risk factors identified. 08:40 Nutritional screening: No deficits noted. Fall Risk Fall in past 12 months (25 points). ch Secondary diagnosis (15 points) No IV (0 pts). Ambulatory Aid- None/Bed Rest/Nurse Assist (0 pts). Gait- Weak (10 pts.). Mental Status- Oriented to own ability (0 pts). Total Meza Fall Scale indicates High Risk Score (45 or more points). Fall prevention measures have been instituted. Frequent Obs/Assessments Occuring Family Present and informed to notify staff if the need to leave the bedside As available patient and family educated on Fall Prevention Program and Strategies. Primary Survey: 08:29 NO uncontrolled hemorrhage observed. Breathing/Chest: Respiratory pattern: regular, ch Respiratory effort: spontaneous, unlabored, Breath sounds: diminished, in left posterior lower lobe and right posterior lower lobe pt states that is normal for her, she cannot breathe unless she is sitting up Chest inspection: symmetrical rise and fall of the chest. Circulation: Heart tones present. Pulses: palpable right radial artery, right brachial artery, right femoral artery, right popliteal artery, left radial artery, left brachial artery, left femoral artery, left popliteal artery, left carotid pulse and right carotid pulse. pt has +4 pitting edema in sophie lower extremeties, states she has had that for years. no changes at present. pulses are palpable with firm pressure into edema Skin color: pale, Skin temperature: warm, dry. Disability Alert. Exposure/Environment: All clothing and personal items were removed. Forensic evidence collection is not deemed to be indicated at this time. Items placed in patient belonging bag. There is no evidence of uncontrolled external bleeding. Obvious injury(ies) are noted at this time: pt has small abrasion to L posterior elbow. A warming method has been applied: A warm blanket has been provided to the patient. 09:20 Reassessment Airway Airway Breathing/Chest Respiratory pattern Regular Respiratory ch effort Spontaneous Unlabored Circulation Heart tones Present Disability Alert. 10:20 Reassessment Airway Airway Patent Breathing/Chest Respiratory pattern Regular ch Respiratory effort Spontaneous Unlabored Circulation Temperature Warm Dry Disability Alert. Secondary Survey: 08:29 HEENT: No deficits noted. Head Other pt c/o pain to top L side of head, but no bleeding ch or injury noted Face No injury/deformity Eyes: No injury or deformity noted. Ears: clear Nose: clear. Gastrointestinal: No deficits noted. : No signs and/or symptoms were reported regarding the genitourinary system. Musculoskeletal: Circulation, motion, and sensation intact. Capillary refill < 3 seconds, in bilateral fingers. 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 Swelling present in right knee, right guo, anterior aspect of right ankle, dorsum of right foot, left knee, left guo, anterior aspect of left ankle and dorsum of left foot Reports pain in right leg since 15 years ago or more. Assessment: 08:29 General: Appears in no apparent distress. comfortable, Behavior is cooperative, ch appropriate for age, anxious, Smells of urine. Pain: Complains of pain in left parietal area, left frontal area and left side of the back of head Pain currently is 10 out of 10 on a pain scale. Pain began 1 hour ago. Neuro: No deficits noted. Level of Consciousness is awake, alert, obeys commands, Oriented to person, place, time, situation, Rn Immunology are equal bilaterally Moves all extremities. Weakness in bilateral leg(s) foot/feet pt states that is chronic. Gait is unsteady, shuffling, Speech is normal, Facial symmetry appears normal, Facial symmetry: tongue is midline, Pupils are PERRLA, Reports headache. Respiratory: Airway is patent Respiratory effort is even, unlabored, Breath sounds are coarse bilaterally. Breath sounds are diminished in left posterior lower lobe and right posterior lower lobe pt states she has slept and stayed in a recliner for the past three years. 08:56 Reassessment: Patient appears in no apparent distress at this time. pt returned from CT. 09:13 Reassessment: Patient appears in no apparent distress at this time. Patient and/or ch family updated on plan of care and expected duration. Pain level reassessed. Patient is alert, oriented x 3, equal unlabored respirations, skin warm/dry/pink. PT TAKEN TO RESTROOM VIA WHEELCHAIR, URINE SAMPLE COLLECTED. PT WAS ABLE TO STAND AND WALK WITH ASSISTANCE, A STEADYING HAND. PT TOLERATED WELL. PT EATING ICE CHIPS IN BED, AWAITING PHYSICIAN ASSESSMENT NOW. CT RESULTS, FS GLUCOSE, AND URINE DIPSTICK BACK. 09:51 Reassessment: Patient appears in no apparent distress at this time. Patient and/or ch family updated on plan of care and expected duration. Pain level reassessed. Patient is alert, oriented x 3, equal unlabored respirations, skin warm/dry/pink. SON STATES HE IS CONCERNED SHE MIGHT HAVE ALZHIMERS OR DEMENTIA, AND THAT SHE IS URINATING ON HERSELF. SON GIVEN COMMUNITY RESOURCES, AND SOME BRIEFS TO TAKE HOME. PT AND SON VERB UNDERSTANDING OF FOLLOW UP CARE. 10:33 Reassessment: Patient appears in no apparent distress at this time. No changes from previously documented assessment. Patient and/or family updated on plan of care and expected duration. Pain level reassessed. Patient is alert, oriented x 3, equal unlabored respirations, skin warm/dry/pink. Patient states feeling better. 10:47 Reassessment: Patient appears in no apparent distress at this time. Patient and/or ch family updated on plan of care and expected duration. Pain level reassessed. Patient is alert, oriented x 3, equal unlabored respirations, skin warm/dry/pink. PT VERB UNDERSTANDING TO FOLLOW UP WITH PCP, TO FOLLOW UP WITH CARDIOLOGY, NEUROLOGY, DECREASE SODIUM AND SUGAR, EAT RIGHT, AND USE HER WALKER. PT VERB UNDERSTANDING OF KEGAL EXERCISES, AND USING THE RESTROOM EVERY 30 MIN TO 1 HR TO PREVENT LEAKAGE. FAMILY STATES THEY WILL CHECK WITH PCP ABOUT HOME HEALTH, OR OTHER OPTIONS FOR PT CARE. Patient states feeling better. Vital Signs: 08:29 BP 136 / 82; Pulse 58; Resp 22; Temp 97.3; Pulse Ox 98% on R/A; Weight 110.22 kg; Height 5 ft. 3 in. (160.02 cm); Pain 10/10; 09:13 BP 122 / 78; Pulse 61; Resp 20; Temp 98; Pulse Ox 97% on R/A; Pain 8/10; ch 09:51 BP 148 / 88; Pulse 62; Resp 22; Pulse Ox 98% on R/A; Pain 7/10; ch 10:47 BP 138 / 92; Pulse 57; Resp 19; Temp 97.6; Pulse Ox 98% on R/A; Pain 6/10; ch 08:29 Body Mass Index 43.05 (110.22 kg, 160.02 cm) Justin Coma Score: 08:29 Eye Response: spontaneous(4). Verbal Response: oriented(5). Motor Response: obeys ch commands(6). Total: 15. 09:13 Eye Response: spontaneous(4). Verbal Response: oriented(5). Motor Response: obeys ch commands(6). Total: 15. 09:51 Eye Response: spontaneous(4). Verbal Response: oriented(5). Motor Response: obeys ch commands(6). Total: 15. Trauma Score (Adult): 08:29 Eye Response: spontaneous(1); Verbal Response: oriented(1); Motor Response: obeys ch commands(2); Systolic BP: > 89 mm Hg(4); Respiratory Rate: 10 to 29 per min(4); Justin Score: 15; Trauma Score: 12 09:13 Eye Response: spontaneous(1); Verbal Response: oriented(1); Motor Response: obeys ch commands(2); Systolic BP: > 89 mm Hg(4); Respiratory Rate: 10 to 29 per min(4); Vonore Score: 15; Trauma Score: 12 09:51 Eye Response: spontaneous(1); Verbal Response: oriented(1); Motor Response: obeys ch commands(2); Systolic BP: > 89 mm Hg(4); Respiratory Rate: 10 to 29 per min(4); Vonore Score: 15; Trauma Score: 12 ED Course: 08:19 Patient arrived in ED. mr 08:19 Gareth Renae MD is Private Physician. mr 08:22 Triage completed. hb 08:23 Arm band placed on. hb 08:27 Santiago Suarez MD is Attending Physician. williams 08:29 Mary Dickinson, RN is Primary Nurse. ch 08:29 Patient has correct armband on for positive identification. Bed in low position. Call light in reach. pt in wheelchair, wheelchair locked. pt states she cannot get in the bed, even sitting upright she cannot breathe in the bed. 08:29 Patient maintains SpO2 saturation greater than 95% on room air. Thermoregulation: warm ch blanket given to patient. 08:40 Pulse ox on. NIBP on. Warm blanket given. ch 08:40 No provider procedures requiring assistance completed. ch 08:53 CT completed. Patient tolerated procedure well. Patient moved to CT. Patient moved back bq from CT. 08:53 CT Head C Spine In Process Unspecified. EDMS 09:15 Inserted saline lock: 20 gauge in right hand, using aseptic technique. Blood collected. ch 10:31 Gareth Renae MD is Referral Physician. williams 10:50 IV discontinued, intact, bleeding controlled, No redness/swelling at site. Pressure ch dressing applied. Administered Medications: 09:40 Drug: Doxycycline 100 mg Route: PO; ch 10:35 Follow up: Response: No adverse reaction 09:51 Drug: Bactrim (160 mg-800 mg (DS) 1 tablet Route: PO; ch 10:35 Follow up: Response: No adverse reaction Point of Care Testing: Blood Glucose: 08:46 Blood Glucose: 141 mg/dL; ch 08:46 taken by COBY Ranges: Intake: 08:29 PO: 0ml; Total: 0ml. ch Outcome: 10:31 Discharge ordered by . [facility] 10:50 Discharged to home via wheelchair, with family. 10:50 Condition: stable 10:50 Discharge instructions given to patient, family, Instructed on discharge instructions, follow up and referral plans. no drinking with medication, medication usage, Demonstrated understanding of instructions, follow-up care, medications, Prescriptions given X 2. 10:51 Patient's length of stay in the Emergency Department was greater than 2 hours. LAB RESULTSPatient's length of stay extended due to 10:52 Patient left the ED. Signatures: Dispatcher [employer] EDMS Mary Dickinson, PILO RN Santiago Suarez MD MD cha Rivera, [place] mr Opal Corrales Heather, RN RN hb Corrections: (The following items were deleted from the chart) 09:56 09:55 Report given to MCKENNA haley ch
--- NOTE | 2018-04-03 10:31 | EDPHYS ---
Physician Documentation [facility] Name: Francine Lemons Age: 77 yrs Sex: Female : 1940 Arrival Date: 04/03/2018 Time: 08:19 Bed 6 Private MD: Gareth Renae ED Physician Santiago Suarez HPI: 04/03 09:31 This 77 yrs old Female presents to ER via Ambulatory with complaints of Fall williams Injury. 09:31 Details of fall: The patient fell from an upright position, while walking. Onset: The williams symptoms/episode began/occurred 2 day(s) ago. Associated injuries: The patient sustained injury to the head, neck injury. Severity of symptoms: At their worst the symptoms were mild. The patient has not experienced similar symptoms in the past. Historical: - Allergies: 08:24 Azithromycin; hb 08:24 Iodine; hb 08:24 Prednisone; hb - Home Meds: 08:24 Albuterol Inhl [Active]; Bumetanide Oral [Active]; carvedilol Oral [Active]; gabapentin hb Oral [Active]; losartan Oral [Active]; Metformin Oral [Active]; metolazone Oral [Active]; Novolin 70/30 Innolet Sub-Q [Active]; Potassium Chloride Oral [Active]; Promethazine Oral [Active]; Simvastatin Oral [Active]; Singulair Oral [Active]; Spironolactone Oral [Active]; Tresiba FlexTouch U-100 subcutaneous [Active]; Xanax Oral [Active]; - PMHx: 08:24 ADD/ADHD; Anxiety; CHF; Diabetes - IDDM; Chronic pain; COPD; High Cholesterol; hb Hypertension; lymphedema; stasis neuropathy; - Social history:: Smoking status: Patient/guardian denies using tobacco. - Immunization history: Last tetanus immunization: - up to date. - Ebola Screening: : No symptoms or risks identified at this time. ROS: 09:32 Constitutional: Negative for fever, chills, and weight loss, Eyes: Negative for injury, williams pain, redness, and discharge, ENT: Negative for injury, pain, and discharge, Neck: Negative for injury, pain, and swelling, Cardiovascular: Negative for chest pain, palpitations, and edema, Respiratory: Negative for shortness of breath, cough, wheezing, and pleuritic chest pain, Abdomen/GI: Negative for abdominal pain, nausea, vomiting, diarrhea, and constipation, Back: Negative for injury and pain, : Negative for injury, bleeding, discharge, and swelling, Skin: Negative for injury, rash, and discoloration, Psych: Negative for depression, anxiety, suicide ideation, homicidal ideation, and hallucinations, Allergy/Immunology: Negative for hives, rash, and allergies, Endocrine: Negative for neck swelling, polydipsia, polyuria, polyphagia, and marked weight changes, Hematologic/Lymphatic: Negative for swollen nodes, abnormal bleeding, and unusual bruising. 09:32 MS/extremity: Positive for erythema, pain, of the left guo. 09:32 Neuro: Positive for headache. Exam: 09:32 Constitutional: This is a well developed, well nourished patient who is awake, alert, williams and in no acute distress. Head/Face: Normocephalic, atraumatic. Eyes: Pupils equal round and reactive to light, extra-ocular motions intact. Lids and lashes normal. Conjunctiva and sclera are non-icteric and not injected. Cornea within normal limits. Periorbital areas with no swelling, redness, or edema. ENT: Nares patent. No nasal discharge, no septal abnormalities noted. Tympanic membranes are normal and external auditory canals are clear. Oropharynx with no redness, swelling, or masses, exudates, or evidence of obstruction, uvula midline. Mucous membranes moist. Neck: Trachea midline, no thyromegaly or masses palpated, and no cervical lymphadenopathy. Supple, full range of motion without nuchal rigidity, or vertebral point tenderness. No Meningismus. Chest/axilla: Normal chest wall appearance and motion. Nontender with no deformity. No lesions are appreciated. Cardiovascular: Regular rate and rhythm with a normal S1 and S2. No gallops, murmurs, or rubs. Normal PMI, no JVD. No pulse deficits. Respiratory: Lungs have equal breath sounds bilaterally, clear to auscultation and percussion. No rales, rhonchi or wheezes noted. No increased work of breathing, no retractions or nasal flaring. Abdomen/GI: Soft, non-tender, with normal bowel sounds. No distension or tympany. No guarding or rebound. No evidence of tenderness throughout. Back: No spinal tenderness. No costovertebral tenderness. Full range of motion. Female : Normal external genitalia. Skin: Warm, dry with normal turgor. Normal color with no rashes, no lesions, and no evidence of cellulitis. Neuro: Awake and alert, GCS 15, oriented to person, place, time, and situation. Cranial nerves II-XII grossly intact. Motor strength 5/5 in all extremities. Sensory grossly intact. Cerebellar exam normal. Normal gait. Psych: Awake, alert, with orientation to person, place and time. Behavior, mood, and affect are within normal limits. 09:32 Musculoskeletal/extremity: ROM: full active range of motion, full passive range of motion, Circulation is intact in all extremities. Sensation intact. Compartment Syndrome exam of affected extremity: is normal. DVT Exam: negative Homans' sign noted on exam, no appreciated bluish discoloration, swelling, erythema, increased warmth, of the left leg, of the left guo. Vital Signs: 08:29 BP 136 / 82; Pulse 58; Resp 22; Temp 97.3; Pulse Ox 98% on R/A; Weight 110.22 kg; ch Height 5 ft. 3 in. (160.02 cm); Pain 10/10; 09:13 BP 122 / 78; Pulse 61; Resp 20; Temp 98; Pulse Ox 97% on R/A; Pain 8/10; ch 09:51 BP 148 / 88; Pulse 62; Resp 22; Pulse Ox 98% on R/A; Pain 7/10; ch 10:47 BP 138 / 92; Pulse 57; Resp 19; Temp 97.6; Pulse Ox 98% on R/A; Pain 6/10; ch 08:29 Body Mass Index 43.05 (110.22 kg, 160.02 cm) Collins Coma Score: 08:29 Eye Response: spontaneous(4). Verbal Response: oriented(5). Motor Response: obeys commands(6). Total: 15. 09:13 Eye Response: spontaneous(4). Verbal Response: oriented(5). Motor Response: obeys commands(6). Total: 15. 09:51 Eye Response: spontaneous(4). Verbal Response: oriented(5). Motor Response: obeys commands(6). Total: 15. Trauma Score (Adult): 08:29 Eye Response: spontaneous(1); Verbal Response: oriented(1); Motor Response: obeys ch commands(2); Systolic BP: > 89 mm Hg(4); Respiratory Rate: 10 to 29 per min(4); Justin Score: 15; Trauma Score: 12 09:13 Eye Response: spontaneous(1); Verbal Response: oriented(1); Motor Response: obeys ch commands(2); Systolic BP: > 89 mm Hg(4); Respiratory Rate: 10 to 29 per min(4); Justin Score: 15; Trauma Score: 12 09:51 Eye Response: spontaneous(1); Verbal Response: oriented(1); Motor Response: obeys ch commands(2); Systolic BP: > 89 mm Hg(4); Respiratory Rate: 10 to 29 per min(4); Collins Score: 15; Trauma Score: 12 MDM: 08:27 Patient medically screened. [facility] 09:32 Data reviewed: vital signs, nurses notes. [facility] 04/03 08:46 Order name: Glucose, Ancillary Testing; Complete Time: 09:23 EDVT 04/03 09:11 Order name: Urine Dipstick--Ancillary (enter results) nm 04/03 08:39 Order name: CT Head C Spine; Complete Time: 09:23 04/03 09:31 Order name: CBC with Diff; Complete Time: 10:02 [facility] 04/03 09:31 Order name: Comprehensive Metabolic Panel; Complete Time: 10:31 [facility] 04/03 08:40 Order name: Fingerstick Glucose; Complete Time: 08:46 04/03 09:12 Order name: Urine Dipstick-Ancillary (obtain specimen); Complete Time: 09:12 Administered Medications: 09:40 Drug: Doxycycline 100 mg Route: PO; 10:35 Follow up: Response: No adverse reaction 09:51 Drug: Bactrim (160 mg-800 mg (DS) 1 tablet Route: PO; 10:35 Follow up: Response: No adverse reaction Point of Care Testing: Blood Glucose: 08:46 Blood Glucose: 141 mg/dL; ch 08:46 taken by COBY Ranges: Critical Glucose Levels:Adult <50 mg/dl or >400 mg/dl <40 mg/dl or >180 mg/dl Disposition: 04/03/18 10:31 Discharged to Home. Impression: Fall due to bumping against object, Headache, Superficial injury of head, Cellulitis and acute lymphangitis of other parts of limb, Type 1 diabetes mellitus. - Condition is Stable. - Discharge Instructions: Cellulitis, Adult, Head Injury, Adult, Cellulitis, Adult, [id number], Lymphedema, Head Injury, Adult, [id number], Type 1 Diabetes Mellitus, Self Care, Adult, Type 1 Diabetes Mellitus, Self Care, Adult, [id number]. - Prescriptions for Doxycycline Hyclate 100 mg Oral Tablet - take 1 tablet by ORAL route every 12 hours; 20 tablet. Bactrim DS 800- 160 mg Oral Tablet - take 1 tablet by ORAL route every 12 hours for 10 days; 20 tablet. - Medication Reconciliation Form, Thank You Letter, Antibiotic Education, Prescription Opioid Use form. - Follow up: Gareth Renae; When: 2 - 3 days; Reason: Recheck today's complaints, Continuance of care, Re-evaluation by your physician. - Problem is new. - Symptoms have improved. Signatures: Dispatcher [employer] EDMary Hicks RN RN ch Anderson, Corey, MD MD cha Baxter, Heather, RN RN Corrections: (The following items were deleted from the chart) 10:52 10:31 04/03/2018 10:31 Discharged to Home. Impression: Fall due to bumping against ch object; Headache; Superficial injury of head; Cellulitis and acute lymphangitis of other parts of limb; Type 1 diabetes mellitus. Condition is Stable. Discharge Instructions: Cellulitis, Adult, Cellulitis, Adult, [id number], Lymphedema, Type 1 Diabetes Mellitus, Self Care, Adult, Type 1 Diabetes Mellitus, Self Care, Adult, Cbjw-[id number], Head Injury, Adult, Head Injury, Adult, [id number]. Prescriptions for Doxycycline Hyclate 100 mg Oral Tablet - take 1 tablet by ORAL route every 12 hours; 20 tablet, Bactrim DS 800-160 mg Oral Tablet - take 1 tablet by ORAL route every 12 hours for 10 days; 20 tablet. and Forms are Medication Reconciliation Form, Thank You Letter, Antibiotic Education, Prescription Opioid Use. Follow up: Gareth Renae; When: 2 - 3 days; Reason: Recheck today's complaints, Continuance of care, Re-evaluation by your physician. Problem is new. Symptoms have improved. williams
[2018-04-03 11:00] VITALS: O2SAT 98
[2018-04-03 11:01] VITALS: BP 138/92; TEMP 97.6
[2018-04-03 13:57] LABS: Urine Blood NEGATIVE (NEG); Urine Glucose NEGATIVE (NEG); Urine Protein 2+ (NEG); Urine Specific Gravity 1.025 (1.005-1.030)
== END 2018-04-03 10:52 | disposition home or self-care (01) ==
LOC: ER 08:16
DX: S09.90XA Unspecified injury of head, initial encounter (principal); W01.0XXA Fall on same level from slipping, tripping and stumbling without subsequent striking against object, initial encounter; Y93.01 Activity, walking, marching and hiking; L03.116 Cellulitis of left lower limb; I89.1 Lymphangitis; R51 Headache; M47.812 Spondylosis without myelopathy or radiculopathy, cervical region; F90.9 Attention-deficit hyperactivity disorder, unspecified type; F41.9 Anxiety disorder, unspecified; I11.0 Hypertensive heart disease with heart failure; I50.9 Heart failure, unspecified; E10.9 Type 1 diabetes mellitus without complications; J44.9 Chronic obstructive pulmonary disease, unspecified; E78.00 Pure hypercholesterolemia, unspecified; Z79.4 Long term (current) use of insulin; Z88.1 Allergy status to other antibiotic agents; Z88.8 Allergy status to other drugs, medicaments and biological substances
CPT/HCPCS: 36415; 70450; 72125; 80053; 81003; 82962; 85025; 99285

== ENCOUNTER 2018-04-25 21:44 | Emergency (ER) | payer OTHER ==
--- NOTE | 2018-04-26 01:07 | ER ---
Nurse's Notes [facility] Name: Farncine Lemons Age: 77 yrs Sex: Female : 1940 Arrival Date: 04/25/2018 Time: 21:50 Bed 26 Private MD: Gareth Renae Diagnosis: Cellulitis of left lower limb;avulsion great left toenail Presentation: 04/25 22:15 Presenting complaint: Patient states: she has had swelling to bilateral lower legs bb which has worsened and her left big toe looks discolored and she is worried she has an infection she is diabetic. Transition of care: patient was not received from another setting of care. Onset of symptoms was April 22, 2018. Risk Assessment: Do you want to hurt yourself or someone else? Patient reports no desire to harm self or others. Initial Sepsis Screen: Does the patient meet any 2 criteria? No. Patient's initial sepsis screen is negative. Does the patient have a suspected source of infection? No. Patient's initial sepsis screen is negative. Care prior to arrival: None. 22:15 Method Of Arrival: Wheelchair bb 22:15 Acuity: AURELIO 3 bb Historical: - Allergies: 22:19 Azithromycin; bb 22:19 Iodine; bb 22:19 Prednisone; bb - Home Meds: 22:19 Albuterol Inhl [Active]; Bumetanide Oral [Active]; carvedilol Oral [Active]; gabapentin bb Oral [Active]; losartan Oral [Active]; Metformin Oral [Active]; metolazone Oral [Active]; Novolin 70/30 [place] Sub-Q [Active]; Potassium Chloride Oral [Active]; Promethazine Oral [Active]; Simvastatin Oral [Active]; Singulair Oral [Active]; Spironolactone Oral [Active]; Tresiba FlexTouch U-100 subcutaneous [Active]; Xanax Oral [Active]; - PMHx: 22:19 ADD/ADHD; Anxiety; CHF; Chronic pain; COPD; Diabetes - IDDM; Hypertension; High bb Cholesterol; lymphedema; stasis neuropathy; - PSHx: 22:19 Appendectomy; Tonsillectomy; Hysterectomy; dental surgery; bb - Immunization history:: Adult Immunizations up to date, Pneumococcal vaccine is up to date, Flu vaccine is up to date. - Social history:: Smoking status: Patient/guardian denies using tobacco. - Ebola Screening: : No symptoms or risks identified at this time. Screenin:29 Abuse screen: Denies threats or abuse. Nutritional screening: No deficits noted. la1 Tuberculosis screening: No symptoms or risk factors identified. Fall Risk None identified. Assessment: 22:28 General: Appears in no apparent distress. Behavior is calm, cooperative. Pain: la1 Complains of pain in Left first toenail. Neuro: Level of Consciousness is awake, alert, obeys commands, Oriented to person, place, time, situation. Cardiovascular: Capillary refill < 3 seconds Patient's skin is warm and dry. Respiratory: Airway is patent Respiratory effort is even, unlabored, Respiratory pattern is regular, symmetrical, Breath sounds are clear bilaterally. GI: No signs and/or symptoms were reported involving the gastrointestinal system. : No signs and/or symptoms were reported regarding the genitourinary system. Musculoskeletal: nail thickening and discoloration noted to left great toe. 23:33 Reassessment: Patient appears in no apparent distress at this time. No changes from la1 previously documented assessment. Patient and/or family updated on plan of care and expected duration. Pain level reassessed. Patient is alert, oriented x 3, equal unlabored respirations, skin warm/dry/pink. Vital Signs: 22:19 BP 131 / 76; Pulse 68; Resp 18 S; Temp 98.3(O); Pulse Ox 94% on R/A; Weight 111.13 kg bb (R); Height 5 ft. 3 in. (160.02 cm) (R); Pain 8/10; 04/26 01:18 BP 138 / 58; Pulse 60; Resp 18; Pulse Ox 98% on R/A; la1 04/25 22:19 Body Mass Index 43.40 (111.13 kg, 160.02 cm) bb ED Course: 04/25 21:50 Patient arrived in ED. am2 21:51 Gareth Renae MD is Private Physician. am2 22:16 Triage completed. bb 22:19 Arm band placed on Patient placed in waiting room, Patient notified of wait time. bb Family accompanied patient. 22:27 Bharta Carey RN is Primary Nurse. la1 22:29 Call light in reach. Side rails up X 1. la1 22:32 Rich, Pasquale, MD is Attending Physician. 03 00:25 Foot Left 3 View XRAY In Process Unspecified. EDMS 00:53 US Extremity Venous Unilateral Ltd In Process Unspecified. EDMS 01:07 Kris Whittaker DPM is Referral Physician. gs 01:18 No provider procedures requiring assistance completed. Patient did not have IV access la1 during this emergency room visit. Administered Medications: No medications were administered Outcome: 01:06 Discharge ordered by . gs 01:18 Discharged to home ambulatory, via wheelchair. la1 01:18 Condition: stable 01:18 Discharge instructions given to patient, Instructed on discharge instructions, follow up and referral plans. medication usage, Demonstrated understanding of instructions, follow-up care, medications, Prescriptions given X 1. 01:19 Patient left the ED. la1 Signatures: Dispatcher [employer] EDMS Alvina Plata RN RN Bharat Ferro RN RN la1 Zoraida Laughlin am2 Pasquale Rich MD MD
--- NOTE | 2018-04-26 01:07 | EDPHYS ---
Physician Documentation [facility] Name: Francine Lemons Age: 77 yrs Sex: Female : 1940 Arrival Date: 04/25/2018 Time: 21:50 Bed 26 Private MD: Gareth Renae ED Physician Pasquale Rich HPI: 04/26 02:32 This 77 yrs old Female presents to ER via Wheelchair with complaints of Leg gs Swelling, toe black. 02:32 The patient presents with swelling, redness. The complaints affect the left guo. gs Onset: The symptoms/episode began/occurred 5 day(s) ago, and became persistent. Modifying factors: The symptoms are alleviated by nothing. the symptoms are aggravated by nothing. Associated signs and symptoms: Pertinent negatives fever. Severity of symptoms: At their worst the symptoms were moderate, in the emergency department the symptoms are unchanged. The patient has experienced similar episodes in the past, a few times. Historical: - Allergies: 04/25 22:19 Azithromycin; bb 22:19 Iodine; bb 22:19 Prednisone; bb - Home Meds: 22:19 Albuterol Inhl [Active]; Bumetanide Oral [Active]; carvedilol Oral [Active]; gabapentin bb Oral [Active]; losartan Oral [Active]; Metformin Oral [Active]; metolazone Oral [Active]; Novolin 70/30 [place] Sub-Q [Active]; Potassium Chloride Oral [Active]; Promethazine Oral [Active]; Simvastatin Oral [Active]; Singulair Oral [Active]; Spironolactone Oral [Active]; Tresiba FlexTouch U-100 subcutaneous [Active]; Xanax Oral [Active]; - PMHx: 22:19 ADD/ADHD; Anxiety; CHF; Chronic pain; COPD; Diabetes - IDDM; Hypertension; High bb Cholesterol; lymphedema; stasis neuropathy; - PSHx: 22:19 Appendectomy; Tonsillectomy; Hysterectomy; dental surgery; bb - Immunization history:: Adult Immunizations up to date, Pneumococcal vaccine is up to date, Flu vaccine is up to date. - Social history:: Smoking status: Patient/guardian denies using tobacco. - Ebola Screening: : No symptoms or risks identified at this time. ROS: 04/26 02:32 All other systems are negative. gs Exam: 02:32 Head/Face: Normocephalic, atraumatic. Chest/axilla: Normal chest wall appearance and gs motion. Nontender with no deformity. No lesions are appreciated. Cardiovascular: Regular rate and rhythm with a normal S1 and S2. No gallops, murmurs, or rubs. Normal PMI, no JVD. No pulse deficits. Respiratory: Lungs have equal breath sounds bilaterally, clear to auscultation and percussion. No rales, rhonchi or wheezes noted. No increased work of breathing, no retractions or nasal flaring. Back: No spinal tenderness. No costovertebral tenderness. Full range of motion. Neuro: Awake and alert, GCS 15, oriented to person, place, time, and situation. Cranial nerves II-XII grossly intact. Motor strength 5/5 in all extremities. Sensory grossly intact. Cerebellar exam normal. Normal gait. 02:32 Constitutional: The patient appears alert, awake. 02:32 Musculoskeletal/extremity: Extremities: noted in the left first toe and Left first toenail: avulsed fungal infected great toenail, Perfusion: the patient is normally perfused throughout, Sensation intact. DVT Exam: swelling, tenderness, erythema. 02:32 Skin: cellulitis, that is moderate, on the lateral aspect of left calf, medial aspect of left calf and left guo. Vital Signs: 04/25 22:19 BP 131 / 76; Pulse 68; Resp 18 S; Temp 98.3(O); Pulse Ox 94% on R/A; Weight 111.13 kg bb (R); Height 5 ft. 3 in. (160.02 cm) (R); Pain 8/10; 18 01:18 BP 138 / 58; Pulse 60; Resp 18; Pulse Ox 98% on R/A; la1 04/25 22:19 Body Mass Index 43.40 (111.13 kg, 160.02 cm) bb MDM: 04/25 23:14 Patient medically screened. 04/26 02:32 Differential diagnosis: closed fracture, contusion, cellulitis,dvt. Data reviewed: vital signs, nurses notes, radiologic studies. 02:32 Counseling: I had a detailed discussion with the patient and/or guardian regarding: the historical points, exam findings, and any diagnostic results supporting the discharge/admit diagnosis, radiology results, the need for outpatient follow up. 04/25 23:16 Order name: Foot Left 3 View XRAY 04/25 23:16 Order name: US Extremity Venous Unilateral Ltd gs Administered Medications: No medications were administered Disposition: 04/26/18 01:06 Discharged to Home. Impression: Cellulitis of left lower limb, avulsion great left toenail. - Condition is Stable. - Discharge Instructions: Cellulitis, Adult. - Prescriptions for Keflex 500 mg Oral Capsule - take 1 capsule by ORAL route every 8 hours for 10 days; 30 capsule. - Medication Reconciliation Form, Thank You Letter, Antibiotic Education, Prescription Opioid Use form. - Follow up: Private Physician; When: 2 - 3 days; Reason: Re-evaluation by your physician. Follow up: Kris Whittaker DPM; When: 2 - 3 days; Reason: Re-evaluation by your physician. Signatures: Dispatcher [employer] EDMS Alvina Plata RN RN bb Bharat Carey RN RN la1 Pasquale Rich MD MD Corrections: (The following items were deleted from the chart) 01:07 01:06 04/26/2018 01:06 Discharged to Home. Impression: Cellulitis of left lower limb; gs avulsion great left toenail. Condition is Stable. Forms are Medication Reconciliation Form, Thank You Letter, Antibiotic Education, Prescription Opioid Use. Follow up: Private Physician; When: 2 - 3 days; Reason: Re-evaluation by your physician. 01:19 01:07 04/26/2018 01:06 Discharged to Home. Impression: Cellulitis of left lower limb; la1 avulsion great left toenail. Condition is Stable. Discharge Instructions: Cellulitis, Adult. Prescriptions for Keflex 500 mg Oral Capsule - take 1 capsule by ORAL route every 8 hours for 10 days; 30 capsule. and Forms are Medication Reconciliation Form, Thank You Letter, Antibiotic Education, Prescription Opioid Use. Follow up: Private Physician; When: 2 - 3 days; Reason: Re-evaluation by your physician. Follow up: Kris Whittaker; When: 2 - 3 days; Reason: Re-evaluation by your physician.
[2018-04-26 02:33] VITALS: TEMP 98.3
[2018-04-26 02:34] VITALS: BP 138/58; O2SAT 98
--- NOTE | 2018-04-26 08:02 | RAD REPORT ---
EXAM DESCRIPTION: USEperri Venous Uni Ltd3 12:55 am CLINICAL HISTORY: left leg pain and swelling. COMPARISON: 2017 FINDINGS: Left common femoral, superficial femoral, popliteal and posterior tibial veins are compre ssible and demonstrate augmentation. Doppler demonstrates good flow. IMPRESSION: No evidence of deep venous thrombosis involving the left lower extremity.
--- NOTE | 2018-04-26 08:10 | RAD REPORT ---
EXAM DESCRIPTION: RAD - Foot Left 3 View - 04/26/2018 12:23 am CLINICAL HISTORY: Left Foot pain and swelling FINDINGS: No fracture or dislocation is seen. Large calcaneal spurs are present. Soft tissue swelling seen
== END 2018-04-26 01:19 | disposition home or self-care (01) ==
LOC: ER 21:44
DX: L03.116 Cellulitis of left lower limb (principal); S91.202A Unspecified open wound of left great toe with damage to nail, initial encounter; I10 Essential (primary) hypertension; E11.9 Type 2 diabetes mellitus without complications; F41.9 Anxiety disorder, unspecified; J44.9 Chronic obstructive pulmonary disease, unspecified; F90.9 Attention-deficit hyperactivity disorder, unspecified type; Z79.4 Long term (current) use of insulin; Z88.1 Allergy status to other antibiotic agents; Z88.8 Allergy status to other drugs, medicaments and biological substances; Z91.048 Other nonmedicinal substance allergy status
CPT/HCPCS: 93971; 99283

== ENCOUNTER 2018-09-03 22:19 | Emergency (ER) | payer OTHER ==
--- OUTSIDE RECORDS SUMMARY | 2018-09-03 22:21 | XMS REPORT ---
:1940 [facility] Address [address] [place] [address] [address] [place] [address] Care Team Providers Name Role Phone Unavailable Unavailable Unavailable Problems This patient has no known problems. Allergies, Adverse Reactions, Alerts This patient has no known allergies or adverse reactions. Medications This patient has no known medications.
[2018-09-03 23:15] LABS: Absolute Lymphocytes (CBC) 2.3 K/uL (0.7-4.9); Basophils % 1.2 % (0-1.3); Hematocrit 41.9 % (36.0-45.0); MPV 9.9 fL (7.6-11.3); RBC Red Blood Cell Count 4.93 M/uL (3.86-4.86)
--- NOTE | 2018-09-03 23:34 | RAD REPORT ---
EXAM DESCRIPTION: Ej Single View09/03/2018 11:27 pm CLINICAL HISTORY: sob COMPARISON: March 2018 FINDINGS: The lungs appear clear of acute infiltrate. The heart is borderline enlarged IMPRESSION: No acute abnormalities displayed
[2018-09-04 00:02] LABS: Potassium 3.8 mmol/L (3.5-5.1)
--- NOTE | 2018-09-04 00:17 | ER ---
Nurse's Notes [facility] Name: Francine Lemons Age: 78 yrs Sex: Female : 1940 Arrival Date: 09/03/2018 Time: 22:24 Bed 7 Private MD: Gareth Renae Diagnosis: Lymphedema, not elsewhere classified Presentation: 09/03 22:28 Presenting complaint: Patient states: "I have congestive heart failure and the swelling aj1 is getting worse and my stomach is swelling. I've been going to the lymphedema clinic, but they said they wouldn't wrap me anymore until I come get checked out" Patient also reports shortness of breath when she lies down. Transition of care: patient was not received from another setting of care. Onset of symptoms was September 03, 2018. Risk Assessment: Do you want to hurt yourself or someone else? Patient reports no desire to harm self or others. Initial Sepsis Screen: Does the patient meet any 2 criteria? No. Patient's initial sepsis screen is negative. Does the patient have a suspected source of infection? No. Patient's initial sepsis screen is negative. Care prior to arrival: None. 22:28 Method Of Arrival: Ambulatory aj1 22:28 Acuity: AURELIO 3 aj1 Triage Assessment: 22:31 General: Appears in no apparent distress. comfortable, Behavior is calm, cooperative, aj1 appropriate for age. Pain: Denies pain. Neuro: Level of Consciousness is awake, alert, obeys commands, Oriented to person, place, time, situation. Cardiovascular: Patient's skin is warm and dry. Respiratory: Reports shortness of breath Airway is patent Respiratory effort is even, unlabored, Respiratory pattern is regular, symmetrical. GI: Reports abdominal swelling. Historical: - Allergies: 22:31 Azithromycin; aj1 22:31 Iodine; aj1 22:31 Prednisone; aj1 - Home Meds: 22:31 Albuterol Inhl [Active]; Bumetanide Oral [Active]; carvedilol Oral [Active]; gabapentin aj1 Oral [Active]; losartan Oral [Active]; Metformin Oral [Active]; Novolin 70/30 Innolet Sub-Q [Active]; Potassium Chloride Oral [Active]; Promethazine Oral [Active]; Simvastatin Oral [Active]; Singulair Oral [Active]; Spironolactone Oral [Active]; Tresiba FlexTouch U-100 subcutaneous [Active]; Xanax Oral [Active]; - PMHx: 22:31 ADD/ADHD; Anxiety; CHF; Chronic pain; COPD; Diabetes - IDDM; High Cholesterol; aj1 Hypertension; lymphedema; stasis neuropathy; - Immunization history:: Flu vaccine is up to date. - Social history:: Smoking status: Patient/guardian denies using tobacco. - Ebola Screening: : Patient denies travel to an Ebola-affected area in the 21 days before illness onset. - Family history:: not pertinent. - Hospitalizations: : No recent hospitalization is reported. Screenin:39 Abuse screen: Denies threats or abuse. Denies injuries from another. Nutritional ak1 screening: No deficits noted. Tuberculosis screening: No symptoms or risk factors identified. Fall Risk None identified. Assessment: 22:49 General: Appears in no apparent distress. Behavior is calm, cooperative, appropriate ak1 for age. Pain: Complains of pain in abdomen. Neuro: Level of Consciousness is awake, alert, obeys commands, Oriented to person, place, time, situation, Burrer Hand are equal bilaterally Moves all extremities. Gait is shuffling, Speech is normal, Facial symmetry appears normal. Cardiovascular: No deficits noted. Respiratory: Airway is patent. GI: Abdomen is round distended, Bowel sounds present X 4 quads. Abd is soft X 4 quads Abd is non tender X 4 quads Reports "feeling bloated and full" in her abd. pt is concerned that the fluid from her legs is traveling up to her abd. pt stated she can no longer be treated at the lymphedema clinic until she is 'checked out". : No signs and/or symptoms were reported regarding the genitourinary system. EENT: No signs and/or symptoms were reported regarding the EENT system. Derm: Skin is pink, warm \\T\\ dry. Reports decreased swelling in lower legs. Musculoskeletal: No signs and/or symptoms reported regarding the musculoskeletal system. 09/04 00:16 Reassessment: Patient appears in no apparent distress at this time. No changes from ak1 previously documented assessment. Patient and/or family updated on plan of care and expected duration. Pain level reassessed. Patient is alert, oriented x 3, equal unlabored respirations, skin warm/dry/pink. Patient denies pain at this time. Patient states feeling better. Vital Signs: 09/03 22:31 BP 187 / 81; Pulse 78; Resp 18; Temp 98.5; Pulse Ox 97% on R/A; Weight 112.49 kg (R); aj1 Height 5 ft. 3 in. (160.02 cm) (R); Pain 0/10; 23:13 BP 158 / 66; Pulse 77; Resp 20; Pulse Ox 97% on R/A; ak1 23:20 BP 137 / 59; Pulse 74; Resp 20; Pulse Ox 97% on R/A; ak1 22:31 Body Mass Index 43.93 (112.49 kg, 160.02 cm) aj1 ED Course: 22:24 Patient arrived in ED. mr 22:24 Gareth Renae MD is Private Physician. mr 22:30 Triage completed. aj1 22:31 Arm band placed on Patient placed in waiting room, Patient notified of wait time. aj1 22:34 Pierce Bettencourt MD is Attending Physician. rn 22:38 Anyi Benton RN is Primary Nurse. ak1 22:38 Patient has correct armband on for positive identification. Bed in low position. Call ak1 light in reach. Side rails up X 1. Placed in gown. engine monitor on. Pulse ox on. NIBP on. 22:50 Radiology exam delayed due to IV insertion attempt and/or patient not having ls3 appropriate IV at this time. 22:54 Door closed. Lights dimmed. Warm blanket given. ak1 22:56 Missed attempt(s): 20 gauge in right forearm. Bleeding controlled, band aid applied, oe catheter tip intact. 23:02 Inserted saline lock: 22 gauge in right forearm, using aseptic technique. Blood oe collected. 23:07 XRAY Chest (1 view) Sent. ak1 23:07 CT Abd/Pelvis - Without Contrast Sent. ak1 23:10 CT completed. Pt tolerated procedure poorly. Patient moved to CT via stretcher. Patient eh moved back from CT. 23:24 X-ray completed. Portable x-ray completed in exam room. Patient tolerated procedure kw well. 23:26 XRAY Chest (1 view) In Process Unspecified. EDMS 23:27 CT Abd/Pelvis - Without Contrast In Process Unspecified. EDMS 07/27 00:16 No provider procedures requiring assistance completed. ak1 00:23 IV discontinued, intact, bleeding controlled, No redness/swelling at site. Pressure ak1 dressing applied. Administered Medications: No medications were administered Outcome: 00:12 Discharge ordered by . rn 00:16 Discharged to home ambulatory, with family. ak1 00:16 Condition: good 00:24 Discharged to home ak1 00:24 Discharge instructions given to patient, family, Instructed on discharge instructions, follow up and referral plans. Demonstrated understanding of instructions, follow-up care. 00:24 Patient left the ED. ak1 Signatures: Dispatcher [employer] EDMS Richa Sutton RN RN aj1 Georgia Pro mr Karma, Pierce oRth MD MD rn Whitley, Kimberlee kw Krenek, Amber, RN RN ak1 Nathanael Talavera Lynzie ls3
--- NOTE | 2018-09-04 00:19 | EDPHYS ---
Physician Documentation [facility] Name: Francine Lemons Age: 78 yrs Sex: Female : 1940 Arrival Date: 09/03/2018 Time: 22:24 Bed 7 Private MD: Gareth Renae ED Physician Pierce Bettencourt HPI: 09/03 22:43 This 78 yrs old Female presents to ER via Ambulatory with complaints of rn Abdominal Swelling. 22:43 The patient presents with abdominal distention. Onset: The symptoms/episode rn began/occurred 1 week(s) ago. The symptoms do not radiate. Associated signs and symptoms: Pertinent positives: shortness of breath, Pertinent negatives: nausea and vomiting, anorexia, blood in stools, fever. The symptoms are described as achy. Modifying factors: The symptoms are alleviated by nothing, the symptoms are aggravated by nothing. Severity of pain: At its worst the pain was mild in the emergency department the pain is unchanged. The patient has not experienced similar symptoms in the past. Reports has been going to lymphedema clinic lately, lymphedema has improved significantly but today went to clinic and they were concerned that abdomen seemed larger and harder, concern was that lymphedema was progressing upwards. Reports compliant with diuretics, and also having sob when laying flat. . Historical: - Allergies: 22:31 Azithromycin; aj1 22:31 Iodine; aj1 22:31 Prednisone; aj1 - Home Meds: 22:31 Albuterol Inhl [Active]; Bumetanide Oral [Active]; carvedilol Oral [Active]; gabapentin aj1 Oral [Active]; losartan Oral [Active]; Metformin Oral [Active]; Novolin 70/30 Innolet Sub-Q [Active]; Potassium Chloride Oral [Active]; Promethazine Oral [Active]; Simvastatin Oral [Active]; Singulair Oral [Active]; Spironolactone Oral [Active]; Tresiba FlexTouch U-100 subcutaneous [Active]; Xanax Oral [Active]; - PMHx: 22:31 ADD/ADHD; Anxiety; CHF; Chronic pain; COPD; Diabetes - IDDM; High Cholesterol; aj1 Hypertension; lymphedema; stasis neuropathy; - Immunization history:: Flu vaccine is up to date. - Social history:: Smoking status: Patient/guardian denies using tobacco. - Ebola Screening: : Patient denies travel to an Ebola-affected area in the 21 days before illness onset. - Family history:: not pertinent. - Hospitalizations: : No recent hospitalization is reported. ROS: 22:43 Constitutional: Negative for fever, chills, and weight loss, Eyes: Negative for injury, rn pain, redness, and discharge, Neck: Negative for injury, pain, and swelling, Cardiovascular: Negative for chest pain, palpitations Respiratory: Negative for cough, wheezing, and pleuritic chest pain, Abdomen/GI: + abdominal swelling, negative for vomiting/diarrhea/blood in stool MS/Extremity: Negative for injury and deformity, Skin: Negative for injury, rash, and discoloration, Neuro: Negative for headache, weakness, numbness, tingling, and seizure. Exam: 22:43 Constitutional: Overweight female, ambulatory without distress, using walker. rn Head/Face: Normocephalic, atraumatic. Eyes: Pupils equal round and reactive to light, extra-ocular motions intact ENT: MMM Cardiovascular: Regular rate and rhythm. No pulse deficits. Respiratory: Diminished breath sounds bilateral bases, no wheezing, speaking full sentences Abdomen/GI: soft, no focal abd tenderness or rebound MS/ Extremity: Pulses equal, no cyanosis. Neurovascular intact. Full, normal range of motion. Equal circumference. 2+ pitting edema bilateral lower ext. Neuro: Awake and alert, GCS 15, oriented to person, place, time, and situation. Cranial nerves II-XII grossly intact. Motor strength 5/5 in all extremities. Sensory grossly intact. Cerebellar exam normal. Normal gait. Vital Signs: 22:31 BP 187 / 81; Pulse 78; Resp 18; Temp 98.5; Pulse Ox 97% on R/A; Weight 112.49 kg (R); aj1 Height 5 ft. 3 in. (160.02 cm) (R); Pain 0/10; 23:13 BP 158 / 66; Pulse 77; Resp 20; Pulse Ox 97% on R/A; ak1 23:20 BP 137 / 59; Pulse 74; Resp 20; Pulse Ox 97% on R/A; ak1 22:31 Body Mass Index 43.93 (112.49 kg, 160.02 cm) aj1 MDM: 22:34 Patient medically screened. rn 09/04 00:11 Differential diagnosis: non-specific abd pain, constipation, abdominal distension, rn bloating, anasarca. Data reviewed: vital signs, nurses notes, lab test result(s), radiologic studies, CT scan, and as a result, I will discharge patient. Counseling: I had a detailed discussion with the patient and/or guardian regarding: the historical points, exam findings, and any diagnostic results supporting the discharge/admit diagnosis, lab results, radiology results, the need for outpatient follow up, to return to the emergency department if symptoms worsen or persist or if there are any questions or concerns that arise at home. Special discussion: I discussed with the patient/guardian in detail that at this point there is no indication for admission to the hospital. It is understood, however, that if the symptoms persist or worsen the patient needs to return immediately for re-evaluation. Based on the history and exam findings, there is no indication for further emergent testing or inpatient evaluation. I discussed with the patient/guardian the need to see the primary care provider for further evaluation of the symptoms. ED course: CT abdomen without acute findings, BNP normal, labs without acute findings, will dc home with f/u with lymphedema clinic.. 09/03 22:41 Order name: CBC with Diff; Complete Time: 23:18 rn 09/03 22:41 Order name: Basic Metabolic Panel; Complete Time: 00:03 rn 09/03 22:41 Order name: IV Start; Complete Time: 23:07 rn 09/03 22:41 Order name: N-Terminal Pro-brain Natriuretic Peptide; Complete Time: 00:03 rn 09/03 22:41 Order name: XRAY Chest (1 view); Complete Time: 00:03 rn 09/03 22:41 Order name: CT Abd/Pelvis - Without Contrast rn Administered Medications: No medications were administered Disposition: 09/04/18 00:12 Discharged to Home. Impression: Lymphedema, not elsewhere classified. - Condition is Stable. - Discharge Instructions: Lymphedema. - Medication Reconciliation Form, Thank You Letter, Antibiotic Education, Prescription Opioid Use form. - Follow up: Private Physician; When: As needed; Reason: Recheck today's complaints, Re-evaluation by your physician. - Problem is chronic. - Symptoms have improved. Signatures: Dispatcher [employer] EDRicha Harrington RN RN aj1 Pierce Bettencourt MD MD rn Krenek, Amber, RN RN ak1 Corrections: (The following items were deleted from the chart) 00:24 00:12 09/04/2018 00:12 Discharged to Home. Impression: Lymphedema, not elsewhere ak1 classified. Condition is Stable. Forms are Medication Reconciliation Form, Thank You Letter, Antibiotic Education, Prescription Opioid Use. Follow up: Private Physician; When: As needed; Reason: Recheck today's complaints, Re-evaluation by your physician. Problem is chronic. Symptoms have improved. rn
[2018-09-04 01:00] VITALS: TEMP 98.5; O2SAT 97
[2018-09-04 01:03] VITALS: BP 137/59
--- NOTE | 2018-09-04 11:20 | RAD REPORT ---
EXAM DESCRIPTION: CT - Abdomen Pelvis Wo Contrast - 09/04/2018 4:56 am CLINICAL HISTORY: Abd swelling COMPARISON: March 11, 2018. TECHNIQUE: CT ABDOMEN PELVIS WITHOUT IV CONTRAST on 09/03/2018 10:41 PM CDT This exam was performed according to our departmental dose-optimization program, which includes autom ated exposure control, adjustment of the mA and/or kV according to patient size and/or use of iterati ve reconstruction technique. FINDINGS: Pulmonary vessels densely calcified without aneurysm. Abdomen: The liver is normal in appearance. There is no biliary dilatation. Gallbladder is filled wit h calcified gallstones. The pancreas and spleen are normal in appearance. Adrenal glands normal. Kidn eys are mildly atrophic. Abdominal aorta is normal in course and caliber without aneurysm. There is no free air. There is no r etroperitoneal adenopathy. Pelvis: There is mild diverticulosis of the distal colon. Urinary bladder is unremarkable. There is n o free fluid. Uterus is absent. Appendix is not seen. Skeleton: There are no acute osseous findings. No suspicious bony lesions. IMPRESSION: No acute inflammatory process. No renal or ureteral calculi. Electronically signed by: Bonifacio Pelayo MD 09/03/2018 11:34 PM CDT Due to temporary technical issues with the PACS/Fluency reporting system, reports are being signed by the in house radiologist as a courtesy to ensure prompt reporting. The interpreting radiologist is f ully responsible for the content of the report.
== END 2018-09-04 00:24 | disposition home or self-care (01) ==
LOC: ER 22:19
DX: I89.0 Lymphedema, not elsewhere classified (principal); I10 Essential (primary) hypertension; E78.00 Pure hypercholesterolemia, unspecified; E11.9 Type 2 diabetes mellitus without complications; F41.9 Anxiety disorder, unspecified; I50.9 Heart failure, unspecified; J44.9 Chronic obstructive pulmonary disease, unspecified; Z79.4 Long term (current) use of insulin; Z88.1 Allergy status to other antibiotic agents; Z88.8 Allergy status to other drugs, medicaments and biological substances; Z91.048 Other nonmedicinal substance allergy status
CPT/HCPCS: 36415; 71045; 74176; 80048; 83880; 85025; 99285

== ENCOUNTER 2018-09-18 18:09 | Emergency (ER) | payer OTHER ==
--- OUTSIDE RECORDS SUMMARY | 2018-09-18 18:12 | XMS REPORT ---
:1940 [facility] Address [address] [place] [address] [address] [place] [address] Care Team Providers Name Role Phone Unavailable Unavailable Unavailable Problems This patient has no known problems. Allergies, Adverse Reactions, Alerts This patient has no known allergies or adverse reactions. Medications This patient has no known medications.
[2018-09-18 19:00] LABS: Absolute Lymphocytes (CBC) 1.7 K/uL (0.7-4.9); Basophils % 0.9 % (0-1.3); Hematocrit 40.2 % (36.0-45.0); Lymphocytes % 22.3 % (15.3-44.8); MPV 9.6 fL (7.6-11.3); RBC Red Blood Cell Count 4.81 M/uL (3.86-4.86)
[2018-09-18] MEDS ORDERED: ONDANSETRON 4 MG/2 ML VIAL ONE (19:12)
[2018-09-18] MEDS ORDERED: MORPHINE 4 MG/ML SYR ONE (19:12)
[2018-09-18 19:14] LABS: Potassium 3.6 mmol/L (3.5-5.1)
--- NOTE | 2018-09-18 20:09 | RAD REPORT ---
EXAM DESCRIPTION: US - Extrem Venous W Compress Geraldo - 09/18/2018 7:55 pm CLINICAL HISTORY: Swelling;Pain Bilateral leg edema and swelling. COMPARISON: <Comparisons> TECHNIQUE: Real-time sonographic interrogation of the left and right lower extremity deep venous sys tems was performed. FINDINGS: Normal compressibility, flow augmentation, phasic flow and spontaneous flow is identified in both the left and right lower extremity deep venous systems. IMPRESSION: No sonographic evidence of left or right lower extremity deep venous thrombosis.
--- NOTE | 2018-09-18 20:34 | ER ---
Nurse's Notes [facility] Name: Francine Lemons Age: 78 yrs Sex: Female : 1940 Arrival Date: 09/18/2018 Time: 18:12 Bed 7 Private MD: Gareth Renae Diagnosis: Lymphedema, not elsewhere classified Presentation: 09/18 18:21 Presenting complaint: Patient states: I have lymphedema and have not had any treatment la1 for over a month for various reasons. I use to go three times a week. My son started wrapping my legs yesterday but I need to make sure I dont have infection. Transition of care: patient was not received from another setting of care. Onset of symptoms was September 18, 2018. Risk Assessment: Do you want to hurt yourself or someone else? Patient reports no desire to harm self or others. Initial Sepsis Screen: Does the patient meet any 2 criteria? No. Patient's initial sepsis screen is negative. Does the patient have a suspected source of infection? No. Patient's initial sepsis screen is negative. Care prior to arrival: None. 18:21 Method Of Arrival: Wheelchair la1 18:21 Acuity: AURELIO 3 la1 Historical: - Allergies: 18:23 Azithromycin; la1 18:23 Iodine; la1 18:23 Prednisone; la1 - PMHx: 18:23 ADD/ADHD; Anxiety; CHF; Chronic pain; COPD; Diabetes - IDDM; High Cholesterol; la1 Hypertension; lymphedema; stasis neuropathy; - Immunization history:: Adult Immunizations up to date. - Social history:: Smoking status: Patient/guardian denies using tobacco. - Ebola Screening: : No symptoms or risks identified at this time. Screenin:15 Abuse screen: Denies threats or abuse. Denies injuries from another. Nutritional cc3 screening: No deficits noted. Tuberculosis screening: No symptoms or risk factors identified. Fall Risk Ambulatory Aid- None/Bed Rest/Nurse Assist (0 pts). Gait- Normal/Bed Rest/Wheelchair (0 pts) Mental Status- Oriented to own ability (0 pts). Assessment: 18:45 General: Appears uncomfortable, Behavior is calm, cooperative. Pain: Complains of pain aa5 in right leg and left leg Pain does not radiate. Pain currently is 8 out of 10 on a pain scale. Quality of pain is described as tender, Pain began chronic Is continuous. Neuro: Level of Consciousness is awake, alert, obeys commands, Oriented to person, place, time, situation. Cardiovascular: Patient's skin is warm and dry. Lymphedema noted to maurisio lower extremities, LLE greater than RLE. Respiratory: Airway is patent Respiratory effort is even, unlabored, Respiratory pattern is regular, symmetrical. GI: Abdomen is obese. : No signs and/or symptoms were reported regarding the genitourinary system. EENT: No signs and/or symptoms were reported regarding the EENT system. Derm: Skin is pink, warm \T\ dry. Redness noted to maurisio lower extremities, redness is more pronounced to LLE, no drainage noted to legs. Musculoskeletal: Range of motion: intact in all extremities. 19:20 Reassessment: Patient appears in no apparent distress at this time. Patient and/or cc3 family updated on plan of care and expected duration. Pain level reassessed. Patient is alert, oriented x 3, equal unlabored respirations, skin warm/dry/pink. Received this female patient from morning shift RN Graciela as a case of bilateral lower limb swelling. General: Appears in no apparent distress. uncomfortable, Behavior is calm, cooperative, appropriate for age. Pain: Complains of pain in left leg and right leg Pain does not radiate. Neuro: Level of Consciousness is awake, alert, obeys commands, Oriented to person, place, time, situation, Appropriate for age. Cardiovascular: Denies chest pain, Patient's skin is warm and dry. Respiratory: Airway is patent Respiratory effort is even, unlabored, Respiratory pattern is regular, symmetrical. GI: Abdomen is round obese. : No signs and/or symptoms were reported regarding the genitourinary system. EENT: No signs and/or symptoms were reported regarding the EENT system. Derm: Skin is pink, warm \T\ dry. redness and swelling on bilateral lower limbs. Musculoskeletal: Range of motion: intact in all extremities. 20:27 Reassessment: Patient appears in no apparent distress at this time. Patient and/or cc3 family updated on plan of care and expected duration. Pain level reassessed. Patient is alert, oriented x 3, equal unlabored respirations, skin warm/dry/pink. 21:00 Reassessment: Patient appears in no apparent distress at this time. Patient and/or cc3 family updated on plan of care and expected duration. Pain level reassessed. Patient is alert, oriented x 3, equal unlabored respirations, skin warm/dry/pink. INDRA Ralph discharged the patient home with prescription given. Was about to cover the patient's bilateral lower limbs with her own dressing but the patient and his son said they'll just do it at home after she takes a shower. IV cannula removed and patient left ER vitally stable by wheelchair escorted by me and the patient's son. No valuables left in the patient's room. Patient denies pain at this time. Patient states feeling better. Patient states symptoms have improved. Vital Signs: 18:23 BP 132 / 55; Pulse 69; Resp 16; Temp 98.7; Pulse Ox 98% on R/A; Weight 112.49 kg; la1 Height 5 ft. 3 in. (160.02 cm); 19:15 BP 125 / 62; Pulse 67; Resp 15 S; Pulse Ox 95% on 2 lpm NC; cc3 20:30 BP 116 / 69; Pulse 68; Resp 15 S; Pulse Ox 94% on 2 lpm NC; cc3 18:23 Body Mass Index 43.93 (112.49 kg, 160.02 cm) la1 ED Course: 18:12 Patient arrived in ED. ag5 18:12 Gareth Renae MD is Private Physician. ag5 18:22 Triage completed. la1 18:23 Arm band placed on left wrist. la1 18:30 Rudi Ralph NP is PHCP. pm1 18:30 Santiago Suarez MD is Attending Physician. pm1 18:45 Graciela Baptiste, PILO is Primary Nurse. aa5 18:45 Patient has correct armband on for positive identification. Placed in gown. Bed in low aa5 position. Call light in reach. Side rails up X 1. 18:53 Initial lab(s) drawn, by me, sent to lab. Missed attempt(s): 20 gauge in right forearm. aa5 Bleeding controlled, band aid applied, catheter tip intact. 19:00 Report given to PILO Ramos. aa5 19:54 Ultrasound completed. Patient tolerated well. sg3 19:57 Extrem Venous W Compression Maurisio US In Process Unspecified. EDMS 20:15 Missed attempt(s): 22 gauge in right hand. lt1 20:15 Inserted saline lock: 22 gauge in left antecubital area, using aseptic technique. lt1 21:00 No provider procedures requiring assistance completed. IV discontinued, intact, cc3 bleeding controlled, No redness/swelling at site. Pressure dressing applied. Administered Medications: 20:15 Drug: morphine 4 mg {Note: RASS 0.} Route: IVP; Site: left antecubital; cc3 21:00 Follow up: Response: No adverse reaction; Pain is decreased; RASS: Alert and Calm (0) cc3 20:19 Drug: Zofran 4 mg Route: IVP; Site: left antecubital; cc3 21:00 Follow up: Response: No adverse reaction; Nausea is decreased cc3 Outcome: 20:32 Discharge ordered by MD. pm1 21:00 Discharged to home via wheelchair, with family. cc3 21:00 Condition: stable 21:00 Discharge instructions given to patient, family, Instructed on discharge instructions, follow up and referral plans. medication usage, Demonstrated understanding of instructions, follow-up care, medications, Prescriptions given X 1. 21:06 Patient left the ED. cc3 Signatures: Dispatcher [employer] EDTN Graciela Baptiste RN PILO [email or web address] Bharat Carey RN RN la1 Rudi Ralph, INDRA WIRELESS OPERATOR pm1 Kaylin Holm 3 Rachel Joseph cc3 Broderick Parra agJeannette Crawford lt1
--- NOTE | 2018-09-18 20:35 | EDPHYS ---
Physician Documentation [facility] Name: Francine Lemons Age: 78 yrs Sex: Female : 1940 Arrival Date: 09/18/2018 Time: 18:12 Bed 7 Private MD: Gareth Renae ED Physician Santiago Suarez HPI: 09/18 18:44 This 78 yrs old Female presents to ER via Wheelchair with complaints of Leg pm1 Swelling. 18:44 The patient presents with pain, swelling. The complaints affect the left leg and right pm1 leg. Context: history of lymphedema. Onset: The symptoms/episode began/occurred chronic, worse the past three days. Modifying factors: The symptoms are alleviated by nothing. the symptoms are aggravated by nothing. Associated signs and symptoms: Pertinent positives: swelling, Pertinent negatives calf tenderness, fever, numbness, tingling. Treatment prior to arrival includes: wrapping by son. The patient has experienced similar episodes in the past, a few times. Historical: - Allergies: 18:23 Azithromycin; la1 18:23 Iodine; la1 18:23 Prednisone; la1 - PMHx: 18:23 ADD/ADHD; Anxiety; CHF; Chronic pain; COPD; Diabetes - IDDM; High Cholesterol; la1 Hypertension; lymphedema; stasis neuropathy; - Immunization history:: Adult Immunizations up to date. - Social history:: Smoking status: Patient/guardian denies using tobacco. - Ebola Screening: : No symptoms or risks identified at this time. ROS: 18:44 Constitutional: Negative for fever, chills, and weight loss, Eyes: Negative for injury, pm1 pain, redness, and discharge, ENT: Negative for injury, pain, and discharge, Neck: Negative for injury, pain, and swelling, Cardiovascular: Negative for chest pain, palpitations, and edema, Respiratory: Negative for shortness of breath, cough, wheezing, and pleuritic chest pain, Abdomen/GI: Negative for abdominal pain, nausea, vomiting, diarrhea, and constipation, Back: Negative for injury and pain. 18:44 Skin: Negative for injury, rash, and discoloration, Neuro: Negative for headache, weakness, numbness, tingling, and seizure. 18:44 MS/extremity: Positive for swelling, of the lower right leg and lower left leg, Negative for decreased range of motion, deformity. Exam: 18:44 Constitutional: This is a well developed, well nourished patient who is awake, alert, pm1 and in no acute distress. Head/Face: Normocephalic, atraumatic. Neck: Trachea midline, no thyromegaly or masses palpated, and no cervical lymphadenopathy. Supple, full range of motion without nuchal rigidity, or vertebral point tenderness. No Meningismus. Chest/axilla: Normal chest wall appearance and motion. Nontender with no deformity. No lesions are appreciated. Cardiovascular: Regular rate and rhythm with a normal S1 and S2. No gallops, murmurs, or rubs. Normal PMI, no JVD. No pulse deficits. Respiratory: Lungs have equal breath sounds bilaterally, clear to auscultation and percussion. No rales, rhonchi or wheezes noted. No increased work of breathing, no retractions or nasal flaring. Abdomen/GI: Soft, non-tender, with normal bowel sounds. No distension or tympany. No guarding or rebound. No evidence of tenderness throughout. Back: No spinal tenderness. No costovertebral tenderness. Full range of motion. 18:44 Skin: Appearance: normal except for affected area, abscess, not appreciated, cellulitis, is not appreciated, blanching redness to left and right shins. redness and swelling greater to left leg than right leg. Vital Signs: 18:23 BP 132 / 55; Pulse 69; Resp 16; Temp 98.7; Pulse Ox 98% on R/A; Weight 112.49 kg; la1 Height 5 ft. 3 in. (160.02 cm); 19:15 BP 125 / 62; Pulse 67; Resp 15 S; Pulse Ox 95% on 2 lpm NC; cc3 20:30 BP 116 / 69; Pulse 68; Resp 15 S; Pulse Ox 94% on 2 lpm NC; cc3 18:23 Body Mass Index 43.93 (112.49 kg, 160.02 cm) la1 MDM: 18:30 Patient medically screened. [facility] 20:31 Data reviewed: vital signs. Data interpreted: Pulse oximetry: on room air is 98 %. pm1 Interpretation: normal. Counseling: I had a detailed discussion with the patient and/or guardian regarding: the historical points, exam findings, and any diagnostic results supporting the discharge/admit diagnosis, lab results, radiology results, the need for outpatient follow up, a family practitioner, lymphedema clinic. 09/18 18:42 Order name: CBC with Diff; Complete Time: 19:55 pm1 09/18 18:42 Order name: BMP; Complete Time: 19:55 pm1 09/18 18:42 Order name: IV Saline Lock; Complete Time: 20:17 pm1 09/18 18:42 Order name: Extrem Venous W Compression Geraldo US; Complete Time: 20:13 pm1 Administered Medications: 20:15 Drug: morphine 4 mg {Note: RASS 0.} Route: IVP; Site: left antecubital; cc3 21:00 Follow up: Response: No adverse reaction; Pain is decreased; RASS: Alert and Calm (0) cc3 20:19 Drug: Zofran 4 mg Route: IVP; Site: left antecubital; cc3 21:00 Follow up: Response: No adverse reaction; Nausea is decreased cc3 Disposition: 09/18/18 20:32 Discharged to Home. Impression: Lymphedema, not elsewhere classified. - Condition is Stable. - Discharge Instructions: Lymphedema. - Prescriptions for Keflex 500 mg Oral Capsule - take 1 capsule by ORAL route every 6 hours for 10 days; 40 capsule. - Medication Reconciliation Form, Thank You Letter, Antibiotic Education, Prescription Opioid Use form. - Follow up: Emergency Department; When: As needed; Reason: Worsening of condition. Follow up: Private Physician; When: 2 - 3 days; Reason: Recheck today's complaints, Continuance of care, Re-evaluation by your physician. - Problem is new. - Symptoms have improved. Addendum: 09/20/2018 10:03 Co-signature as Attending Physician, Santiago Suarez MD I agree with the assessment and c dozier plan of care. Signatures: Dispatcher [employer] [facility] Santiago Suarez MD MD cha Attema, Lee, RN RN la1 Rudi Ralph, EXHIBIT CLEANER EXHIBIT CLEANER pm1 Rachel Joseph cc3 Corrections: (The following items were deleted from the chart) 09/18 21:06 20:32 09/18/2018 20:32 Discharged to Home. Impression: Lymphedema, not elsewhere cc3 classified. Condition is Stable. Forms are Medication Reconciliation Form, Thank You Letter, Antibiotic Education, Prescription Opioid Use. Follow up: Emergency Department; When: As needed; Reason: Worsening of condition. Follow up: Private Physician; When: 2 - 3 days; Reason: Recheck today's complaints, Continuance of care, Re-evaluation by your physician. Problem is new. Symptoms have improved. pm1
[2018-09-18 22:12] VITALS: TEMP 98.7
[2018-09-18 22:15] VITALS: BP 116/69; O2SAT 94
== END 2018-09-18 21:06 | disposition home or self-care (01) ==
LOC: ER 18:09
DX: I89.0 Lymphedema, not elsewhere classified (principal); F90.9 Attention-deficit hyperactivity disorder, unspecified type; F41.9 Anxiety disorder, unspecified; I11.0 Hypertensive heart disease with heart failure; I50.9 Heart failure, unspecified; J44.9 Chronic obstructive pulmonary disease, unspecified; E11.9 Type 2 diabetes mellitus without complications; E78.00 Pure hypercholesterolemia, unspecified; Z79.4 Long term (current) use of insulin; Z88.1 Allergy status to other antibiotic agents; Z88.8 Allergy status to other drugs, medicaments and biological substances
CPT/HCPCS: 85025; 80048; 36415; 93970; 96375; 96374; 99284; J2405

== ENCOUNTER 2018-12-25 05:59 | Emergency (ER) | payer OTHER ==
--- OUTSIDE RECORDS SUMMARY | 2018-12-25 06:02 | XMS REPORT | Summary of Care ---
:1940 Author Organization [facility] - Health Address [address] [place] [address] Care Team Providers Name Role Phone Gareth Renae MD Primary Care Provider Gareth Renae MD Paper Feeder Encounter Details Date Type Department Care Team Description 09/21/2018 Orders Only [facility] Doctor Unassigned, No [address] [facility] [place] [address] [address] [place] [address] Allergies Active Allergy Reactions Severity Noted Date Comments Iodine Nausea and/or Vomiting 05/31/2018 Prednisone Nausea and/or Vomiting 05/31/2018 documented as of this encounter (statuses as of 09/21/2018) Medications Medication Sig Dispensed Refills Start Date End Date Status CARVEDILOL ORAL Take 25 mg by 0 Active mouth 2 (two) times daily. gabapentin 400 mg Take 400 mg by 0 Active capsule mouth 2 (two) times daily. losartan 25 mg tablet Take 25 mg by 0 Active mouth at bedtime. metFORMIN 500 mg Take 500 mg by 0 Active tablet mouth 2 (two) times daily with meals. insulin NPH hum/reg inject 80 Units 0 Active insulin hm (NOVOLIN under the skin 2 70/30 SC) (two) times daily. simvastatin 40 mg Take 40 mg by 0 Active tablet mouth at bedtime. montelukast Take 10 mg by 0 Active (SINGULAIR) 10 mg mouth. tablet ALPRAZolam (XANAX) 0.5 Take 0.5 mg by 0 Active mg tablet mouth 3 (three) times daily. bumetanide 1 mg Take 1 tablet by 60 tablet 1 06/03/2018 Active tabletIndications: mouth 2 (two) Cellulitis of lower times daily. extremity, unspecified laterality magnesium oxide 420 mg Take 400 mg by 60 tablet 1 06/03/2018 Active TabIndications: mouth 2 (two) Cellulitis of lower times daily. extremity, unspecified laterality potassium chloride 40 Take 15 mL by 450 mL 0 06/03/2018 Active mEq/15 mL mouth daily. solutionIndications: Cellulitis of lower extremity, unspecified laterality spironolactone 25 mg Take 1 tablet by 60 tablet 1 06/03/2018 Active tabletIndications: mouth 2 (two) Cellulitis of lower times daily. extremity, unspecified laterality zolpidem 5 mg Take 1 tablet by 10 tablet 0 06/03/2018 Active tabletIndications: mouth at bedtime Cellulitis of lower as needed for extremity, unspecified Insomnia. laterality doxycycline 100 mg Take 1 capsule by 20 capsule 0 06/03/2018 Active capsuleIndications: mouth every 12 Cellulitis of lower (twelve) hours. extremity, unspecified laterality levoFLOXacin 500 mg Take 1 tablet by 10 tablet 0 06/03/2018 Active tabletIndications: mouth every 24 Cellulitis of lower (twenty-four) extremity, unspecified hours. laterality albuterol 2.5 mg /3 mL Inhale 3 mL every 1 Box 0 07/11/2018 Active (0.083 %) nebulizer 4 (four) hours as solutionIndications: needed for COPD exacerbation Wheezing or Shortness of Breath. benzonatate 200 mg Take 1 capsule by 21 capsule 0 07/22/2018 Active capsuleIndications: mouth 3 (three) Lymphedema of both times daily as lower extremities, needed for Cough. Hypoxia documented as of this encounter (statuses as of 09/21/2018) Active Problems Problem Noted Date Coronary artery disease involving mi'kmaq coronary artery of mi'kmaq heart 06/01 without angina pectoris Acute on chronic diastolic congestive heart failure 06/01/2018 Morbid obesity 06/01/2018 Type 2 diabetes mellitus without complication, without long-term current 06/01 use of insulin Essential hypertension 06/01/2018 Lower extremity pain 06/01/2018 Cellulitis 05/31/2018 Bilateral leg edema 05/31/2018 documented as of this encounter (statuses as of 09/21/2018) Social History Tobacco Use Types Packs/Day Years Used Date Former Smoker Smokeless Tobacco: Never Used Alcohol Use Drinks/Week oz/Week Comments No Sex Assigned at Date Recorded Not on file Job Start Date Occupation Industry Not on file Not on file Not on file Travel History Travel Start Travel End No recent travel history available. documented as of this encounter Last Filed Vital Signs Not on filedocumented in this encounter Plan of Treatment Health Maintenance Due Date Last Done Comments EYE EXAM 1952 LDL-C 1950 URINE MICROALBUMIN 1952 FOOT EXAM 1960 DTaP,Tdap,and Td Vaccines (1 - 1961 Tdap) Zoster Recombinant Vaccine 1992 (SHINGRIX) (1 of 2) LUNG CANCER SCREEN: Recommended 1997 for age 55-80 with 30 + pack year history Medicare Wellness Visit 07/13/2007 PNEUMOCOCCAL VACCINES 65+ (1 of 2 07/13/2007 - PCV13) INFLUENZA VACCINE 10/10/2018 HgA1C 11/30/2018 05/31/2018 CREATININE (SERUM) 07/20/2019 07/19/2018, 07/11/2018, 06/03/2018, Additional history exists documented as of this encounter Procedures Procedure Name Priority Date/Time Associated Diagnosis Comments CONSENT/REFUSAL FOR Routine 09/21/2018 2:54 PM CDT DIAGNOSIS AND TREATMENT documented in this encounter Results Not on filedocumented in this encounter Insurance Payer Benefit Plan / Subscriber ID Effective Phone Address Type Group Dates [employer]LL[employer] WELL[employer]ARE [id number] 2013-Pres Medicare Adv MEDICARE NON MEDICARE NON ent PPO CONTRACTED CONTRACTED documented as of this encounter
--- OUTSIDE RECORDS SUMMARY | 2018-12-25 06:02 | XMS REPORT ---
:1940 [facility] Address [address] [place] [address] [address] [place] [address] Care Team Providers Name Role Phone Unavailable Unavailable Unavailable Problems This patient has no known problems. Allergies, Adverse Reactions, Alerts This patient has no known allergies or adverse reactions. Medications This patient has no known medications.
--- OUTSIDE RECORDS SUMMARY | 2018-12-25 06:03 | XMS REPORT | Summary of Care ---
:1940 Author Organization [facility] Address [address] [place] [id number] Care Team Providers Name Role Phone Gareth Renae MD Primary Care Provider Gareth Renae MD Night Custodian Reason for Visit Reason Comments Leg Pain LEG SWELLING Cellulitis Auth/Cert Status Reason Specialty Diagnoses / Referred By Referred To Procedures Contact Contact [facility] [address] [place] [address] [place] [address] Encounter Details Date Type Department Care Team Description 09/21/2018 Hospital Encounter [facility] Nadia Wall MD [address] JJ [address] [place] [id number] [facility], [facility] [address] [place] [address] [place] [address] Allergies Active Allergy Reactions Severity Noted Date Comments Iodine Nausea and/or Vomiting 05/31/2018 documented as of this encounter (statuses as of 09/22/2018) Medications Medication Sig Dispensed Refills Start Date End Date Status CARVEDILOL ORAL Take 25 mg by 0 Suspended mouth 2 (two) times daily. gabapentin 400 mg Take 400 mg by 0 Suspended capsule mouth 2 (two) times daily. losartan 25 mg tablet Take 25 mg by 0 Suspended mouth at bedtime. metFORMIN 500 mg Take 500 mg by 0 Suspended tablet mouth 2 (two) times daily with meals. insulin NPH hum/reg inject 80 Units 0 Suspended insulin hm (NOVOLIN under the skin 70/30 SC) 2 (two) times daily. simvastatin 40 mg Take 40 mg by 0 Suspended tablet mouth at bedtime. montelukast Take 10 mg by 0 Suspended (SINGULAIR) 10 mg mouth. tablet ALPRAZolam (XANAX) Take 0.5 mg by 0 Suspended 0.5 mg tablet mouth 3 (three) times daily. bumetanide 1 mg Take 1 tablet 60 tablet 1 06/03/2018 Suspended tabletIndications: by mouth 2 Cellulitis of lower (two) times extremity, daily. unspecified laterality magnesium oxide 420 Take 400 mg by 60 tablet 1 06/03/2018 Suspended mg TabIndications: mouth 2 (two) Cellulitis of lower times daily. extremity, unspecified laterality potassium chloride 40 Take 15 mL by 450 mL 0 06/03/2018 Suspended mEq/15 mL mouth daily. solutionIndications: Cellulitis of lower extremity, unspecified laterality spironolactone 25 mg Take 1 tablet 60 tablet 1 06/03/2018 Suspended tabletIndications: by mouth 2 Cellulitis of lower (two) times extremity, daily. unspecified laterality zolpidem 5 mg Take 1 tablet 10 tablet 0 06/03/2018 Suspended tabletIndications: by mouth at Cellulitis of lower bedtime as extremity, needed for unspecified Insomnia. laterality doxycycline 100 mg Take 1 capsule 20 capsule 0 06/03/2018 Suspended capsuleIndications: by mouth every Cellulitis of lower 12 (twelve) extremity, hours. unspecified laterality levoFLOXacin 500 mg Take 1 tablet 10 tablet 0 06/03/2018 Suspended tabletIndications: by mouth every Cellulitis of lower 24 extremity, (twenty-four) unspecified hours. laterality albuterol 2.5 mg /3 Inhale 3 mL 1 Box 0 07/11/2018 Suspended mL (0.083 %) every 4 (four) nebulizer hours as needed solutionIndications: for Wheezing or COPD exacerbation Shortness of Breath. benzonatate 200 mg Take 1 capsule 21 capsule 0 07/22/2018 Suspended capsuleIndications: by mouth 3 Lymphedema of both (three) times lower extremities, daily as needed Hypoxia for Cough. documented as of this encounter (statuses as of 09/22/2018) Active Problems Problem Noted Date Bilateral lower leg cellulitis 09/21/2018 Coronary artery disease involving morongo coronary artery of morongo heart 06/01 without angina pectoris Acute on chronic diastolic congestive heart failure 06/01/2018 Morbid obesity 06/01/2018 Type 2 diabetes mellitus without complication, without long-term current 06/01 use of insulin Essential hypertension 06/01/2018 Lower extremity pain 06/01/2018 Cellulitis 05/31/2018 Bilateral leg edema 05/31/2018 documented as of this encounter (statuses as of 09/22/2018) Social History Tobacco Use Types Packs/Day Years [...] pack year history Medicare Wellness Visit 07/13/2007 Osteoporosis Screening 07/13/2007 PNEUMOCOCCAL VACCINES 65+ (1 of 2 07/13/2007 - PCV13) INFLUENZA VACCINE 10/10/2018 HgA1C 11/30/2018 05/31/2018 CREATININE (SERUM) 07/20/2019 07/19/2018, 07/11/2018, 06/03/2018, Additional history exists documented as of this encounter Results Not on filedocumented in this encounter Visit Diagnoses Diagnosis Cellulitis of both lower extremities documented in this encounter Insurance Payer Benefit Plan / Subscriber ID Effective Dates Phone Address Type Group JERALD GIFFORD [id number] 2018-Presen Medicare Adv PLUS PLUS t HMO CLASSIC/VALUE documented as of this encounter
--- OUTSIDE RECORDS SUMMARY | 2018-12-25 06:04 | XMS REPORT | Summary of Care ---
:1940 Author Organization [facility] Address [address] [place] [address] Care Team Providers Name Role Phone Bridgette Renae MD Primary Care Provider Bridgette Renae MD Child Guidance Counselor Reason for Referral (Routine) Status Reason Specialty Diagnoses / Referred By Referred To Procedures Contact Contact New Request IM-INTERNAL Diagnoses Bilateral lower leg cellulitis Jarod Lucas MD MEDICINE Procedures Discharge Follow-Up: Specialty Service IM-INTERNAL MEDICINE (Lymphedema clinic) ; 3-5 Days [address] [place] [address] (Routine) Status Reason Specialty Diagnoses / Referred By Referred To Procedures Contact Contact New Request IM-NEPHROLOGY Diagnoses Bilateral lower leg cellulitis Jarod Lucas MD Procedures Discharge Follow-Up: Specialty Service IM-NEPHROLOGY; 1 Week [address] [place] [address] (Routine) Status Reason Specialty Diagnoses / Referred By Referred To Procedures Contact Contact New Request Diagnoses Bilateral lower leg cellulitis Jarod Lucas MD Vellanki, Vinitha, Procedures Discharge Follow-up: PCP BRIDGETTE RENAE; 3-5 Days [address] [address] Phone: [place], [place] [phone] (Routine) Status Reason Specialty Diagnoses / Referred By Referred To Procedures Contact Contact New Request Vascular Procedures Hernandez, Sukhjinder Sonography BILATERAL VENOUS R, EMNP DUPLEX LOWER [address] EXTREMITY BY [id number] [place] [address] Radiology Services (STAT) Status Reason Specialty Diagnoses / Referred By Referred To Procedures Contact Contact New Request Diagnostic Diagnoses Bilateral lower leg cellulitis Hernandez, Sukhjinder Radiology Procedures XR CHEST 1 VW R, EMNP [address] [address] (Routine) Status Reason Specialty Diagnoses / Referred By Referred To Procedures Contact Contact New Request Vascular Procedures Hernandez, Sukhjinder Sonography BILATERAL VENOUS R, EMNP DUPLEX LOWER [address] EXTREMITY BY [id number] [place] [address] Radiology Services (STAT) Status Reason Specialty Diagnoses / Referred By Referred To Procedures Contact Contact New Request Diagnostic Diagnoses Bilateral lower leg cellulitis Hernandez, Sukhjinder Radiology Procedures XR CHEST 1 VW R, EMNP [address] [address] Reason for Visit Reason Comments LEG SWELLING Auth/Cert Status Reason Specialty Diagnoses / Referred By Referred To Procedures Contact Contact [facility] [address] [place] [address] [place] [address] Encounter Details Date Type Department Care Team Description 09/21/2018 - Hospital Encounter ADC Medicine Hernandez, Sukhjinder R, EMNP [address] [id number] Bilateral lower leg 09/25/2018 Surgery Unit Truong Winters MBBS [address] [place], [place] [id number] cellulitis [address] [place] [address] [address] [place] [address] Allergies Active Allergy Reactions Severity Noted Date Comments Iodine Nausea and/or Vomiting 05/31/2018 documented as of this encounter (statuses as of 09/25/2018) Medications Medication Sig Dispensed Refills Start Date End Date Status gabapentin 400 mg Take 400 mg by 0 Active capsule mouth 2 (two) times daily. losartan 25 mg Take 25 mg by 0 Active tablet mouth at bedtime. metFORMIN 500 mg Take 500 mg by 0 Active tablet mouth 2 (two) times daily with meals. simvastatin 40 mg Take 40 mg by 0 Active tablet mouth at bedtime. montelukast Take 10 mg by 0 Active (SINGULAIR) 10 mg mouth. tablet magnesium oxide 420 Take 400 mg by 60 tablet 1 06/03/2018 Active mg TabIndications: mouth 2 (two) Cellulitis of lower times daily. extremity, unspecified laterality potassium chloride Take 15 mL by 450 mL 0 06/03/2018 Active 40 mEq/15 mL mouth daily. solutionIndications: Cellulitis of lower extremity, unspecified laterality zolpidem 5 mg Take 1 tablet 10 tablet 0 06/03/2018 Active tabletIndications: by mouth at Cellulitis of lower bedtime as extremity, needed for unspecified Insomnia. laterality albuterol 2.5 mg /3 Inhale 3 mL 1 Box 0 07/11/2018 Active mL (0.083 %) every 4 (four) nebulizer hours as solutionIndications: needed for COPD exacerbation Wheezing or Shortness of Breath. benzonatate 200 mg Take 1 capsule 21 capsule 0 07/22/2018 Active capsuleIndications: by mouth 3 Lymphedema of both (three) times lower extremities, daily as Hypoxia needed for Cough. ALPRAZolam (XANAX) Take 1 tablet 42 tablet 0 09/25/2018 Active 0.5 mg by mouth 3 tabletIndications: (three) times Anxiety daily. bumetanide 1 mg Take 1 tablet 60 tablet 1 09/25/2018 Active tabletIndications: by mouth Cellulitis of lower daily. extremity, unspecified laterality levoFLOXacin 750 mg Take 1 tablet 7 tablet 0 09/25/2018 Active tabletIndications: by mouth every Cellulitis of lower 24 extremity, (twenty-four) unspecified hours. laterality carvedilol 12.5 mg Take 1 tablet 60 tablet 1 09/25/2018 Active tabletIndications: by mouth 2 Coronary artery (two) times disease involving daily. [place] coronary artery of [place] heart without angina pectoris insulin NPH and inject 70 10 mL 1 09/25/2018 Active regular human 70-30 Units under (NOVOLIN 70/30 U-100 the skin every INSULIN) 100 unit/mL morning and (70-30) evening. injectionIndications : Type 2 diabetes mellitus without complication, without long-term current use of insulin spironolactone 25 mg Take 2 tablets 60 tablet 1 09/25/2018 Active tabletIndications: by mouth 2 Cellulitis of lower (two) times extremity, daily. unspecified laterality metOLazone 5 mg Take 1 tablet 15 tablet 0 09/27/2018 Active tabletIndications: by mouth every Bilateral leg edema other day. clindamycin 300 mg Take 1 capsule 28 capsule 0 09/25/2018 Active capsuleIndications: by mouth 4 Cellulitis of lower (four) times extremity, daily. unspecified laterality CARVEDILOL ORAL Take 25 mg by 0 Discontinued mouth 2 (two) 9 times daily. insulin NPH hum/reg inject 80 0 Discontinued insulin hm (NOVOLIN Units under 9 70/30 SC) the skin 2 (two) times daily. ALPRAZolam (XANAX) Take 0.5 mg by 0 Discontinued 0.5 mg tablet mouth 3 9 (three) times daily. bumetanide 1 mg Take 1 tablet 60 tablet 1 06/03/2018 Discontinued tabletIndications: by mouth 2 9 Cellulitis of lower (two) times extremity, daily. unspecified laterality spironolactone 25 mg Take 1 tablet 60 tablet 1 06/03/2018 Discontinued tabletIndications: by mouth 2 9 Cellulitis of lower (two) times extremity, daily. unspecified laterality doxycycline 100 mg Take 1 capsule 20 capsule 0 06/03/2018 Discontinued capsuleIndications: by mouth every 9 Cellulitis of lower 12 (twelve) extremity, hours. unspecified laterality levoFLOXacin 500 mg Take 1 tablet 10 tablet 0 06/03/2018 Discontinued tabletIndications: by mouth every 9 Cellulitis of lower 24 extremity, (twenty-four) unspecified hours. laterality bumetanide 1 mg Take 1 tablet 60 tablet 1 09/25/2018 Discontinued tabletIndications: by mouth 9 Cellulitis of lower daily. extremity, unspecified laterality spironolactone 25 mg Take 2 tablets 60 tablet 1 09/25/2018 Discontinued tabletIndications: by mouth 2 9 Cellulitis of lower (two) times extremity, daily. unspecified laterality carvedilol 12.5 mg Take 1 tablet 60 tablet 1 09/25/2018 Discontinued tabletIndications: by mouth 2 9 Coronary artery (two) times disease involving daily. [place] coronary artery of [place] heart without angina pectoris metOLazone 5 mg Take 1 tablet 15 tablet 0 09/27/2018 Discontinued tabletIndications: by mouth every 9 Bilateral leg edema other day. insulin NPH and inject 70 10 mL 1 09/25/2018 Discontinued regular human 70-30 Units under 9 (NOVOLIN 70/30 U-100 the skin every INSULIN) 100 unit/mL morning and (70-30) evening. injectionIndications : Type 2 diabetes mellitus without complication, without long-term current use of insulin clindamycin 300 mg Take 1 capsule 28 capsule 0 09/25/2018 Discontinued capsuleIndications: by mouth 4 9 Cellulitis of lower (four) times extremity, daily for 7 unspecified days. laterality levoFLOXacin 750 mg Take 1 tablet 7 tablet 0 09/25/2018 Discontinued tabletIndications: by mouth every 9 Cellulitis of lower 24 extremity, (twenty-four) unspecified hours for 7 laterality days. documented as of this encounter (statuses as of 09/25/2018) Active Problems Problem Noted Date Bilateral lower leg cellulitis 09/21/2018 Coronary artery disease involving [place] coronary artery of [place] heart 06/01 without angina pectoris Acute on chronic diastolic congestive heart failure 06/01/2018 Morbid obesity 06/01/2018 Type 2 diabetes mellitus without complication, without long-term current 06/01 use of insulin Essential hypertension 06/01/2018 Lower extremity pain 06/01/2018 Cellulitis 05/31/2018 Bilateral leg edema 05/31/2018 documented as of this encounter (statuses as of 09/25/2018) Social History Tobacco Use Types Packs/Day Years Used Date Former Smoker Smokeless Tobacco: Never Used Tobacco Cessation: Counseling Given: No Alcohol Use Drinks/Week oz/Week Comments No Sex Assigned at Date Recorded Not on file Job Start Date Occupation Industry Not on file Not on file Not on file Travel History Travel Start Travel End No recent travel history available. documented as of this encounter Last Filed Vital Signs Vital Sign Reading Time Taken Comments Blood Pressure 128/68 09/25/2018 11:43 AM CDT Pulse 61 09/25/2018 11:43 AM CDT Temperature 36.6 C (97.9 F) 09/25/2018 11:43 AM CDT Respiratory Rate 18 09/25/2018 11:43 AM CDT Oxygen Saturation 93% 09/25/2018 11:43 AM CDT Inhaled Oxygen Concentration - - Weight 112.5 kg (248 lb) 09/21/2018 7:56 PM CDT Height 160 cm (5' 3") 09/21/2018 7:56 PM CDT Body Mass Index 43.93 09/21/2018 7:56 PM CDT documented in this encounter Discharge Instructions Andrea Jaeger RN - 09/23/2018 11:00 AM CDTThurs, September 30, 2018 at 08:00 AM Post Hospital Follow Up Appointment with Dr Bridgette Renae [address], [place], [place] [address] [phone] Additional InstructionsCorlSaloni RN - 09/25/2018 Patient Discharge Instructions Discharge date: 09/25/2018 Procedure(s): Discharge Orders Discharge Follow-up: PCP BRIDGETTE RENAE; 3-5 Days To PCP: BRIDGETTE RENAE [[id number]] Patient's Preferred Location: [facility] Discharge Disposition: HOME, ([facility]) When (Patients with risk for unplanned readmission score over 16 or those noted as Hospital Dependent should follow up within 7 days with PCP or primary DX specialist): 3-5 Days Risk of Unplanned Readmission:( Score greater than 16 indicates high risk) 17 1800 Calorie Diabetic Consistent Carbohydrates Diet - includes HS Snack; Texture : Regular. Texture Regular. Diabetic: IDDM Discharge Condition - Discharge Condition: GOOD Discharge Activity Discharge Activity: As Tolerated Discharge Follow-Up: Specialty Service IM-NEPHROLOGY; 1 Week Order Comments: Dr. Renae Specialty: IM-NEPHROLOGY [18] Patient's Preferred Location: [facility] Discharge Disposition: HOME, ([facility]) When (Patients with risk for unplanned readmission score over 16 or those noted as Hospital Dependent should follow up within 7 days with PCP or primary DX specialist): 1 Week Risk of Unplanned Readmission:( Score greater than 16 indicates high risk) 17 Discharge Follow-Up: Specialty Service IM-INTERNAL MEDICINE (Lymphedema clinic) ; 3-5 Days Specialty: IM-INTERNAL MEDICINE [17] Lymphedema clinic Patient's Preferred Location: [facility] Discharge Disposition: HOME, ([facility]) When (Patients with risk for unplanned readmission score over 16 or those noted as Hospital Dependent should follow up within 7 days with PCP or primary DX specialist): 3-5 Days Risk of Unplanned Readmission:( Score greater than 16 indicates high risk) 17 No VTE Prophylaxis given- Patient low risk for VTE; Not ordered during hospitalization Follow instructions as indicated below: 1. The medication that was used will be acting in your system for the next 24 hours, so you might feel a little drowsy, with impaired judgment and or motor function. This feeling should go wear off. Because the medication is still in your system for the next 24 hours you SHOULD NOT: Drive a car, operate machinery or power tool. Drink any alcohol beverages (including beer or wine). Make any important decisions or sign any legal documents. 2. You should rest the remainder of the day and not engage in any physical activity. Move slowly today. After lying down, sit on the edge of the bed for a moment before standing. YOU ARE RESPONSIBLEFOR HAVING SOMEONE AT HOME WITH YOU DURING THE AFTERNOON AND NIGHT IMMEDIATELY FOLLOWING YOUR SURGERY. Patient should cough and deep breathe every 2-4 hours while awake to avoid respiratory complications. 4. Lifting: {IP DISCHARGE INSTRUCTIONS LIFTIN::"No medical restrictions"} 5. Weight: In general, sudden weight gains or losses should be reported to your provider. Cardiac patients should weigh daily and notify their provider for a weight gain of 3 pounds per day or 5 pounds per week. 6. Tobacco Avoidance: Follow recommendations below 7. Because the medications used could procedure some residual nausea and vomiting after you go home,you should eat lightly today, starting with clear liquids (broth, soft drinks, apple juice, jello) and toast or crackers, progressing to bland solid foods and then to your normal diet as tolerated, unless otherwise stated by your surgeon. If you get sick, wait a couple of hours and then begin to eat. After 24 hours the nausea should be gone. 8. You may experience some pain and your physician will advise you on what to take for discomfort. This should be taken as directed. If the pain is not relieved, contact your physician. You may alsohave a sore throat from the airway that was in place. You may uses lozenges, throat spray (such as Chloraseptic), or warm salt water gargles for symptomatic relief. 9. If you feel warm, take your temperature. If it is 101 degrees or above call your physician. 10. If you are unable to urinate within five hours after your procedure, call your physician. 11. The type of surgery performed will determine how much bleeding (if any) to expect. Normally, some spotting might occur. If your dressing pad becomes saturated, notify your physician. Elevate surgical site, if applicable, to reduced swelling and pain. 12. Wound/dressing care: Tips on preventing a surgical site infection.. Dont smoke. It is best to quit at least 30 days before surgery, but quitting after surgery is also helpful. If you are diabetic, keep your blood sugar well controlled. WASH YOUR HANDS. Keep your wound clean and remember to wash your hands before and after contact with the area. All health care workers should also wash their hands or use an alcohol based hand rub prior to examining you. If antibiotics are prescribed, take them as directed. Finish the entire course of antibiotics. Call your doctor if you have signs of infection: ? Increased tenderness at the surgical site ? Red streaks or increased redness of the area ? Bad-smelling discharge from the incision ? Fever of 101F or higher ? General tired feeling that doesnt improve 13. Other discharge instructions: {DC IP DISCHARGE INSTRUCTIONS OTHER:50910} 14. Special Instructions: Take Home Medications These are medications ordered for you by your healthcare provider. Do not take any other medications or supplements unless advised by your healthcare provider. Current Discharge Medication List START taking these medications Details clindamycin 300 mg capsule Take 1 capsule by mouth 4 (four) times daily for 7 days. Qty: 28 capsule, Refills: 0 Associated Diagnoses: Cellulitis of lower extremity, unspecified laterality insulin NPH and regular human 70-30 (NOVOLIN 70/30 U-100 INSULIN) 100 unit/mL ( 70-30) injection inject 70 Units under the skin every morning and evening. Qty: 10 mL, Refills: 1 Associated Diagnoses: Type 2 diabetes mellitus without complication, without long-term current use of insulin metOLazone 5 mg tablet Take 1 tablet by mouth every other day. Qty: 15 tablet, Refills: 0 Associated Diagnoses: Bilateral leg edema CONTINUE these medications which have CHANGED Details bumetanide 1 mg tablet Take 1 tablet by mouth daily. Qty: 60 tablet, Refills: 1 Associated Diagnoses: Cellulitis of lower extremity, unspecified laterality carvedilol 12.5 mg tablet Take 1 tablet by mouth 2 (two) times daily. Qty: 60 tablet, Refills: 1 Associated Diagnoses: Coronary artery disease involving [place] coronary artery of [place] heart without angina pectoris levoFLOXacin 750 mg tablet Take 1 tablet by mouth every 24 (twenty-four) hours for 7 days. Qty: 7 tablet, Refills: 0 Associated Diagnoses: Cellulitis of lower extremity, unspecified laterality spironolactone 25 mg tablet Take 2 tablets by mouth 2 (two) times daily. Qty: 60 tablet, Refills: 1 Associated Diagnoses: Cellulitis of lower extremity, unspecified laterality CONTINUE these medications which have NOT CHANGED Details benzonatate 200 mg capsule Take 1 capsule by mouth 3 (three) times daily as needed for Cough. Qty: 21 capsule, Refills: 0 Associated Diagnoses: Lymphedema of both lower extremities; Hypoxia albuterol 2.5 mg /3 mL (0.083 %) nebulizer solution Inhale 3 mL every 4 (four) hours as needed for Wheezing or Shortness of Breath. Qty: 1 Box, Refills: 0 Associated Diagnoses: COPD exacerbation magnesium oxide 420 mg Tab Take 400 mg by mouth 2 (two) times daily. Qty: 60 tablet, Refills: 1 Associated Diagnoses: Cellulitis of lower extremity, unspecified laterality potassium chloride 40 mEq/15 mL solution Take 15 mL by mouth daily. Qty: 450 mL, Refills: 0 Associated Diagnoses: Cellulitis of lower extremity, unspecified laterality zolpidem 5 mg tablet Take 1 tablet by mouth at bedtime as needed for Insomnia. Qty: 10 tablet, Refills: 0 Associated Diagnoses: Cellulitis of lower extremity, unspecified laterality ALPRAZolam (XANAX) 0.5 mg tablet Take 0.5 mg by mouth 3 (three) times daily. gabapentin 400 mg capsule Take 400 mg by mouth 2 (two) times daily. losartan 25 mg tablet Take 25 mg by mouth at bedtime. metFORMIN 500 mg tablet Take 500 mg by mouth 2 (two) times daily with meals. montelukast (SINGULAIR) 10 mg tablet Take 10 mg by mouth. simvastatin 40 mg tablet Take 40 mg by mouth at bedtime. STOP taking these medications doxycycline 100 mg capsule Comments: Reason for Stopping: insulin NPH hum/reg insulin hm (NOVOLIN 70/30 SC) Comments: Reason for Stopping: Follow-up appointments: Your follow up appointment with your surgeon has been made. Appointment Date: , Appointment Time . For questions regarding follow-up instructions call the Healthcare Hotline at ( [phone] or If you experience any of the following symptoms , please follow up with . For worsening symptoms/changing condition/problems or questions: Non-emergency/urgent: Call the Healthcare Hotline at or or Emergency: Go to the closest emergency room or call [phone] Translated by Date Time If you receive the patient satisfaction survey by mail please complete and return and let us know how we are doing. TOBACCO AVOIDANCE Exposure to tobacco either from smoking or from second hand (environmental) smoke or smokeless tobacco (snuff) is damaging to your health. This information is to encourage everyone to avoid tobacco exposure. It is recommended that you: ? If you smoke or use smokeless tobacco, we encourage you to quit. ? If you have already quit smoking, continue your good work! ? If you do not smoke or use smokeless tobacco, do not start. ? Avoid secondhand smoke. Additional Resources You may want to contact these organizations for further information on smoking and how to quit. [employer], http://www.lungusa.org/stop-smoking/ [employer], http://www.cancer.org/Healthy/StayAwayfromTobacco/index [place] [employer], http://www.heart.org/HEARTORG/GettingHealthy/ QuitSmoking/Quit-Smoking_[facility]_001085_SubHomePage.jsp AttachmentsThe following attachments cannot be sent through Care Everywhere.Cellulitis, Discharge Instructions for (Cuban)Bumetanide tablets ( Cuban)Spironolactone tablets (Cuban)Carvedilol tablets (Cuban)Metolazone tablets (Cuban)Clindamycin capsules (Cuban)Levofloxacin tablets (Cuban) documented in this encounter Progress Notes Truong Winters MBBS - 09/24/2018 2:49 PM CDT Hospitalist Medicine Progress Note SUBJECTIVE: Patient with SOB imporved PHYSICAL EXAM: Vitals: 09/24/18 0717 09/24/18 0729 09/24/18 0930 09/24/18 1127 BP: 122/56 132/63 134/76 Pulse: 66 68 70 Resp: 16 18 20 18 Temp: 36.6 C (97.9 F) 36.5 C (97.7 F) TempSrc: Oral Oral SpO2: 96% 92% 94% 94% Weight: Height: Constitutional: obese Eyes: EOMI PERRLA ENT: OP clear. Neck supple Respiratory: No chest wall tenderness, equal and symmetric expansion b/l CTA b/l Cardiovascular : Regular rate and rhythm S1S2 normal. No murmur. B/l LE edema GI: abd Soft ND NT no organomegaly Neuro: CN 3-12 grossly normal. No focal neuro deficits Skin: b/l LE erythema warmth and TTP Musculoskeletal: Normal range of motion. No spinal TTP Hematological: No petechia or purpura no extensive lymphadenopathy LABS/imaging- reviewed pertinent labs as below: Recent Results (from the past 24 hour(s)) POCT GLUCOSE (AUTOMATED) Collection Time: 09/23/18 3:51 PM Result Value Ref Range POCT GLU 250 (H) 70 - 110 mg/dL BASIC METABOLIC PANEL (NA, K, CL, CO2, GLUCOSE, BUN, CREATININE, CA) Collection Time: 09/24/18 3:00 AM Result Value Ref Range NA 136 135 - 145 mmol/L K 3.5 3.5 - 5.0 mmol/L CL 91 (L) 98 - 108 mmol/L CO2 TOTAL 36 (H) 23 - 31 mmol/L AGAP 9 2 - 16 BUN 21 7 - 23 mg/dL GLUCOSE 216 (H) 70 - 110 mg/dL CREATININE 0.77 0.50 - 1.04 mg/dL CALCIUM 8.4 (L) 8.6 - 10.6 mg/dL eGFR Calculation (Non-) 72.9 mL/min/1.73m2 eGFR Calculation () 88.3 mL/min/1.73m2 MAGNESIUM Collection Time: 09/24/18 3:00 AM Result Value Ref Range MAGNESIUM 1.4 (L) 1.7 - 2.4 mg/dL URIC ACID Collection Time: 09/24/18 3:00 AM Result Value Ref Range URIC ACID 6.7 (H) 2.9 - 6.0 mg/dL PHOSPHORUS Collection Time: 09/24/18 3:00 AM Result Value Ref Range PHOSPHORUS 3.8 2.5 - 5.0 mg/dL POCT GLUCOSE (AUTOMATED) Collection Time: 09/24/18 7:29 AM Result Value Ref Range POCT GLU 197 (H) 70 - 110 mg/dL POCT GLUCOSE (AUTOMATED) Collection Time: 09/24/18 11:27 AM Result Value Ref Range POCT GLU 180 (H) 70 - 110 mg/dL Current Meds reviewed Current Facility-Administered Medications: ALPRAZolam (XANAX) tablet 0.5 mg, 0.5 mg, Oral, TID, Movva, Truong, MBBS, 0.5 mg at 09/24/18 1415 calcitriol (ROCALTROL) capsule 0.5 mcg, 0.5 mcg, Oral, DAILY, Aglieco, Savage G, DO, 0.5 mcg at 09/24/18 0808 levoFLOXacin in D5W (LEVAQUIN) 750 mg/150 mL Piggyback 750 mg, 750 mg, IV Piggyback, Q24H ABX, Movva, Truong, MBBS, 750 mg at 09/23/18 1616 losartan (COZAAR) tablet 25 mg, 25 mg, Oral, QHS, Aglieco, Savage G, DO magnesium oxide (MAG-OX 400) tablet 400 mg, 400 mg, Oral, BID, Movva, Truong , MBBS, 400 mg at 09/24/18 0808 spironolactone (ALDACTONE) tablet 50 mg, 50 mg, Oral, BID, Aglieco, Savage G , DO, 50 mg at 09/24/18 0808 metOLazone (ZAROXOLYN) tablet 5 mg, 5 mg, Oral, Q OTHERDAY, Bridgette Renae MD, 5 mg at 09/23/18 0909 sodium chloride (OCEAN MIST NASAL) 0.65 % nasal spray 1 [place], 1 [place], Nasal, BIDPRN, Movva, Truong, MBBS, 1 [place] at 09/24/18 1256 acetaminophen (TYLENOL) tablet 650 mg, 650 mg, Oral, Q6HPRN, Movva, Truong, MBBS carvedilol (COREG) tablet 25 mg, 25 mg, Oral, BID, Movva, Truong, MBBS, 25 mg at 09/24/18 0808 clindamycin in d5w (CLEOCIN) 600 mg/50 mL 600 mg piggyback, 600 mg, IV Piggyback, Q8H ABX, Movva, Truong, MBBS, 600 mg at 09/24/18 1130 HYDROcodone-acetaminophen (NORCO) 10-325 mg tablet 1 tablet, 1 tablet, Oral , Q6HPRN, Movva, Truong, MBBS, 1 tablet at 09/24/18 1256 insulin NPH and regular human 70-30 (HUMULIN 70-30 U-100 INSULIN) 100 unit/ mL (70-30) [id number] Units, 70 Units, Subcutaneous, QAM+PM, Movva, Truong, MBBS , 70 Units at 09/24/18 0808 ipratropium-albuterol (DUONEB) 0.5 mg-3 mg(2.5 mg base)/3 mL nebulizer solution 3 mL, 3 mL, Inhalation, QID, Movva, Truong, MBBS, 3 mL at 09/22/18 1140 ipratropium-albuterol (DUONEB) 0.5 mg-3 mg(2.5 mg base)/3 mL nebulizer solution 3 mL, 3 mL, Inhalation, QIDPRN, Movva, Truong, MBBS simvastatin (ZOCOR) tablet 40 mg, 40 mg, Oral, QHS, Movva, Truong, MBBS, 40 mg at 09/23/182028 Sliding Scale Insulin - Aspart (NOVOLOG) + Fsbg Testing, , Subcutaneous, AC , Movva, Truong, MBBS, Stopped at 09/24/18 08 ASSESSMENT/PLAN B/L LE cellulitis superimposed on chronic lymphedema: continue IV levaquin and IV clindamycin AOC diastolic heart failure . Continue home bumex. IV Lasix and spironolactone DM; Poor control. Continue home NPH and SSI CKD: STAGE 1. Stable. HTN: continue home meds COPD: Stable. Continue nebs Nephrotic syndrome: IV lasix per renal. DVT prophylaxis: scd Code Status cpr Dispo: home Savage Hollingsworth DO - 09/24/2018 8:19 AM CDT Nephrology Progress Note Admit Date: 09/21/2018 CPS stable without CP or SOB. No acute events overnight. Good urine output. Poor sleep in the hospital. Vitals and medications reviewed in the chart. Blood work and imaging reviewed in the chart. Gen: NAD. Obese. HEENT: NCAT. MMM. Neck: Supple. No LAD. Lungs: CTA CVS: RRR Abd: Soft. NT. +BS Ext: No C/C. LE Edema 3+ Skin: No rash Psych: AAO Neuro: Normal speech A/ Francine Lemons is a 78 year old female Hypokalemia. Alkalosis. Hypocalcemia. Hypomagnesemia. Proteinuria. DM II with CKD. Diastolic CHF, A/C. HTN with CKD/ CHF., controlled. Chronic lymphedema. BL LE Cellulitis. P/ Continue current POC and Medications other than the changes below. Continue furosemide and spironolactone 50mg twice daily. Give potassium. Continue abx. Low sodium diet. No NSAIDs. AM Labs. Daily weight. Patient Vitals for the past 24 hrs: BP Temp Temp src Pulse Resp SpO2 09/23/18 1947 17 92 % 09/23/18 1618 16 91 % 09/23/18 1600 127/66 36.7 C (98.1 F) Oral 66 20 92 % 09/23/18 1200 123/53 36.4 C (97.5 F) Oral 60 18 97 % 09/23/18 0800 125/53 36.5 C (97.7 F) Oral 64 18 91 % 09/23/18 0725 16 93 % 09/23/18 0450 108/60 36.6 C (97.8 F) Oral 64 18 91 % 09/23/18 0020 117/60 36.8 C (98.3 F) Oral 68 18 93 % 09/22/189 20 100 % No intake or output data in the 24 hours ending 09/23/182049 CBC BMP PT/INR WBC (10*3/L) Date Value 09/22/2018 5.85 NA (mmol/L) Date Value 09/24/2018 136 No results found for: PT RBC (10*6/L) Date Value 09/22/2018 4.45 K (mmol/L) Date Value 09/24/2018 3.5 INR (no units) Date Value 07/19/2018 1.0 PLT (10*3/L) Date Value 09/22/2018 189 CALCIUM (mg/dL) Date Value 09/24/2018 8.4 (L) HGB (g/dL) Date Value 09/22/2018 12.3 CL (mmol/L) Date Value 09/24/2018 91 (L) aPTT HCT (%) Date Value 09/22/2018 37.6 BUN (mg/dL) Date Value 09/24/2018 21 APTT Patient (Seconds) Date Value 07/19/2018 29 CREATININE (mg/dL) Date Value 09/24/2018 0.77 No final results containing an impression from the past 2 days were found. Current Facility-Administered Medications Medication Dose Route Frequency Last Rate Last Dose ALPRAZolam (XANAX) tablet 0.5 mg 0.5 mg Oral TID 0.5 mg at 09/24/181935 calcitriol (ROCALTROL) capsule 0.5 mcg 0.5 mcg Oral DAILY 0.5 mcg at 0808 levoFLOXacin in D5W (LEVAQUIN) 750 mg/150 mL Piggyback 750 mg 750 mg IV Piggyback Q24H ABX 750 mg at 09/24/18 1607 losartan (COZAAR) tablet 25 mg 25 mg Oral QHS 25 mg at 09/24/181936 magnesium oxide (MAG-OX 400) tablet 400 mg 400 mg Oral BID 400 mg at 1935 spironolactone (ALDACTONE) tablet 50 mg 50 mg Oral BID 50 mg at 09/24/181935 metOLazone (ZAROXOLYN) tablet 5 mg 5 mg Oral Q OTHERDAY 5 mg at 09/23/18 0909 sodium chloride (OCEAN MIST NASAL) 0.65 % nasal spray 1 [place] 1 [place] Nasal BIDPRN 1 [place] at09/24/18 194 acetaminophen (TYLENOL) tablet 650 mg 650 mg Oral Q6HPRN carvedilol (COREG) tablet 25 mg 25 mg Oral BID 25 mg at 09/24/181935 clindamycin in d5w (CLEOCIN) 600 mg/50 mL 600 mg piggyback 600 mg IV Piggyback Q8H ABX 600 mgat 09/24/18 193 HYDROcodone-acetaminophen (NORCO) 10-325 mg tablet 1 tablet 1 tablet Oral Q6HPRN 1 tablet at 09/24/18 2142 insulin NPH and regular human 70-30 (HUMULIN 70-30 U-100 INSULIN) 100 unit/ mL (70-30) injection 70 Units 70 Units Subcutaneous QAM+PM 70 Units at 170 ipratropium-albuterol (DUONEB) 0.5 mg-3 mg(2.5 mg base)/3 mL nebulizer solution 3 mL 3 mL Inhalation QID 3 mL at 09/22/18 1140 ipratropium-albuterol (DUONEB) 0.5 mg-3 mg(2.5 mg base)/3 mL nebulizer solution 3 mL 3 mL Inhalation QIDPRN simvastatin (ZOCOR) tablet 40 mg 40 mg Oral QHS 40 mg at 09/24/181935 Sliding Scale Insulin - Aspart (NOVOLOG) + Fsbg Testing Subcutaneous AC 2 Units at 09/24/18 170 Current Facility-Administered Medications: ALPRAZolam (XANAX) tablet 0.5 mg, 0.5 mg, Oral, TID, Movva, Truong, MBBS, 0.5 mg at 09/24/181935 calcitriol (ROCALTROL) capsule 0.5 mcg, 0.5 mcg, Oral, DAILY, AgSavage sun G, DO, 0.5 mcg at 09/24/18 0808 levoFLOXacin in D5W (LEVAQUIN) 750 mg/150 mL Piggyback 750 mg, 750 mg, IV Piggyback, Q24H ABX, Movva, Truong, MBBS, 750 mg at 09/24/18 1607 losartan (COZAAR) tablet 25 mg, 25 mg, Oral, QHS, [place], Savage G, DO, 25 mg at 09/24/18 193 magnesium oxide (MAG-OX 400) tablet 400 mg, 400 mg, Oral, BID, Movva, Truong , MBBS, 400 mg at 09/24/18 193 spironolactone (ALDACTONE) tablet 50 mg, 50 mg, Oral, BID, [place], Savage G , DO, 50 mg at 09/24/18 193 metOLazone (ZAROXOLYN) tablet 5 mg, 5 mg, Oral, Q OTHERDAY, Bridgette Renae MD, 5 mg at 09/23/18 0909 sodium chloride (OCEAN MIST NASAL) 0.65 % nasal spray 1 [place], 1 [place], Nasal, BIDPRN, Movva, Truong, MBBS, 1 [place] at 09/24/18 194 acetaminophen (TYLENOL) tablet 650 mg, 650 mg, Oral, Q6HPRN, Movva, Truong, MBBS carvedilol (COREG) tablet 25 mg, 25 mg, Oral, BID, Movva, Truong, MBBS, 25 mg at 09/24/18 193 clindamycin in d5w (CLEOCIN) 600 mg/50 mL 600 mg piggyback, 600 mg, IV Piggyback, Q8H ABX, Movva, Truong, MBBS, 600 mg at 09/24/18 193 HYDROcodone-acetaminophen (NORCO) 10-325 mg tablet 1 tablet, 1 tablet, Oral , Q6HPRN, Movva, Truong, MBBS, 1 tablet at 09/24/18 2142 insulin NPH and regular human 70-30 (HUMULIN 70-30 U-100 INSULIN) 100 unit/ mL (70-30) [id number] Units, 70 Units, Subcutaneous, QAM+PM, Movva, Truong, MBBS , 70 Units at 09/24/18 1706 ipratropium-albuterol (DUONEB) 0.5 mg-3 mg(2.5 mg base)/3 mL nebulizer solution 3 mL, 3 mL, Inhalation, QID, Movva, Truong, MBBS, 3 mL at 09/22/18 1140 ipratropium-albuterol (DUONEB) 0.5 mg-3 mg(2.5 mg base)/3 mL nebulizer solution 3 mL, 3 mL, Inhalation, QIDPRN, Truong Winters, MBYESSENIA simvastatin (ZOCOR) tablet 40 mg, 40 mg, Oral, QHS, MovTruong shane, MBBS, 40 mg at 09/24/18 1936 Sliding Scale Insulin - Aspart (NOVOLOG) + Fsbg Testing, , Subcutaneous, AC , Truong Winters MBBS, 2 Units at 09/24/18 1706 avage Judd DO - 09/23/2018 5:30 PM CDT Nephrology Progress Note Admit Date: 09/21/2018 CPS stable without CP or SOB. No acute events overnight. Good urine output. Vitals and medications reviewed in the chart. Blood work and imaging reviewed in the chart. Gen: NAD. Obese. HEENT: NCAT. MMM. Neck: Supple. No LAD. Lungs: CTA CVS: RRR Abd: Soft. NT. +BS Ext: No C/C. LE Edema 3+ Skin: No rash Psych: AAO Neuro: Normal speech A/ Cereslul Lemons is a 78 year old female Hypokalemia. Alkalosis. Hypocalcemia. Hypomagnesemia. Proteinuria. DM II with CKD. Diastolic CHF, A/C. HTN with CKD/ CHF., controlled. Chronic lymphedema. BL LE Cellulitis. P/ Continue current POC and Medications other than the changes below. Increase spironolactone 50mg twice daily. Potassium as ordered. Start Vitamin D. Continue abx. No NSAIDs. AM Labs. Daily weight. Patient Vitals for the past 24 hrs: BP Temp Temp src Pulse Resp SpO2 09/23/18 1947 17 92 % 09/23/18 1618 16 91 % 09/23/18 1600 127/66 36.7 C (98.1 F) Oral 66 20 92 % 09/23/18 1200 123/53 36.4 C (97.5 F) Oral 60 18 97 % 09/23/18 0800 125/53 36.5 C (97.7 F) Oral 64 18 91 % 09/23/18 0725 16 93 % 09/23/18 0450 108/60 36.6 C (97.8 F) Oral 64 18 91 % 09/23/18 0020 117/60 36.8 C (98.3 F) Oral 68 18 93 % 09/22/189 20 100 % No intake or output data in the 24 hours ending 09/23/182049 CBC BMP PT/INR WBC (10*3/L) Date Value 09/22/2018 5.85 NA (mmol/L) Date Value 09/22/2018 139 No results found for: PT RBC (10*6/L) Date Value 09/22/2018 4.45 K (mmol/L) Date Value 09/22/2018 3.5 INR (no units) Date Value 07/19/2018 1.0 PLT (10*3/L) Date Value 09/22/2018 189 CALCIUM (mg/dL) Date Value 09/22/2018 8.6 HGB (g/dL) Date Value 09/22/2018 12.3 CL (mmol/L) Date Value 09/22/2018 98 aPTT HCT (%) Date Value 09/22/2018 37.6 BUN (mg/dL) Date Value 09/22/2018 16 APTT Patient (Seconds) Date Value 07/19/2018 29 CREATININE (mg/dL) Date Value 09/22/2018 0.58 No final results containing an impression from the past 2 days were found. Current Facility-Administered Medications Medication Dose Route Frequency Last Rate Last Dose calcitriol (ROCALTROL) capsule 0.5 mcg 0.5 mcg Oral DAILY levoFLOXacin in D5W (LEVAQUIN) 750 mg/150 mL Piggyback 750 mg 750 mg IV Piggyback Q24H ABX 750 mg at 09/23/18 161 LORazepam (ATIVAN) tablet 0.5 mg 0.5 mg Oral BIDPRN 0.5 mg at 09/23/182028 [START ON 09/24/2018] losartan (COZAAR) tablet 25 mg 25 mg Oral QHS magnesium oxide (MAG-OX 400) tablet 400 mg 400 mg Oral BID 400 mg at 2027 spironolactone (ALDACTONE) tablet 50 mg 50 mg Oral BID furosemide (LASIX) injection 40 mg 40 mg Slow IV Push Q8H 40 mg at 161 metOLazone (ZAROXOLYN) tablet 5 mg 5 mg Oral Q OTHERDAY 5 mg at 09/23/18 0909 sodium chloride (OCEAN MIST NASAL) 0.65 % nasal spray 1 [place] 1 [place] Nasal BIDPRN 1 [place] at09/23/18 0954 acetaminophen (TYLENOL) tablet 650 mg 650 mg Oral Q6HPRN carvedilol (COREG) tablet 25 mg 25 mg Oral BID 25 mg at 09/23/182028 clindamycin in d5w (CLEOCIN) 600 mg/50 mL 600 mg piggyback 600 mg IV Piggyback Q8H ABX 600 mgat 09/23/18 193 HYDROcodone-acetaminophen (NORCO) 10-325 mg tablet 1 tablet 1 tablet Oral Q6HPRN 1 tablet at 09/23/18 161 insulin NPH and regular human 70-30 (HUMULIN 70-30 U-100 INSULIN) 100 unit/ mL (70-30) injection 70 Units 70 Units Subcutaneous QAM+PM 70 Units at 161 ipratropium-albuterol (DUONEB) 0.5 mg-3 mg(2.5 mg base)/3 mL nebulizer solution 3 mL 3 mL Inhalation QID 3 mL at 09/22/18 1140 ipratropium-albuterol (DUONEB) 0.5 mg-3 mg(2.5 mg base)/3 mL nebulizer solution 3 mL 3 mL Inhalation QIDPRN simvastatin (ZOCOR) tablet 40 mg 40 mg Oral QHS 40 mg at 09/23/182028 Sliding Scale Insulin - Aspart (NOVOLOG) + Fsbg Testing Subcutaneous AC 2 Units at 09/23/18 161 Current Facility-Administered Medications: calcitriol (ROCALTROL) capsule 0.5 mcg, 0.5 mcg, Oral, DAILY, A[place]ieco, Savage G, DO levoFLOXacin in D5W (LEVAQUIN) 750 mg/150 mL Piggyback 750 mg, 750 mg, IV Piggyback, Q24H ABX, Movva, Truong, MBBS, 750 mg at 09/23/18 161 LORazepam (ATIVAN) tablet 0.5 mg, 0.5 mg, Oral, BIDPRN, [place], Vera Osagbaroghemwen, MD, 0.5 mg at 09/23/182028 [START ON 09/24/2018] losartan (COZAAR) tablet 25 mg, 25 mg, Oral, QHS, A[place], Savage G, DO magnesium oxide (MAG-OX 400) tablet 400 mg, 400 mg, Oral, BID, Movva, Truong , MBBS, 400 mg at 09/23/182027 spironolactone (ALDACTONE) tablet 50 mg, 50 mg, Oral, BID, [place], Savage G , DO furosemide (LASIX) injection 40 mg, 40 mg, Slow IV Push, Q8H, Bridgette Renae MD, 40 mg at 09/23/18 161 metOLazone (ZAROXOLYN) tablet 5 mg, 5 mg, Oral, Q OTHERDAY, Bridgette Renae MD, 5 mg at 09/23/18 0909 sodium chloride (OCEAN MIST NASAL) 0.65 % nasal spray 1 [place], 1 [place], Nasal, BIDPRN, Movva, Truong, MBBS, 1 [place] at 09/23/18 0954 acetaminophen (TYLENOL) tablet 650 mg, 650 mg, Oral, Q6HPRN, Movva, Truong, MBBS carvedilol (COREG) tablet 25 mg, 25 mg, Oral, BID, Movva, Truong, MBBS, 25 mg at 09/23/182028 clindamycin in d5w (CLEOCIN) 600 mg/50 mL 600 mg piggyback, 600 mg, IV Piggyback, Q8H ABX, Movva, Truong, MBBS, 600 mg at 09/23/18 1930 HYDROcodone-acetaminophen (NORCO) 10-325 mg tablet 1 tablet, 1 tablet, Oral , Q6HPRN, Movva, Truong, MBBS, 1 tablet at 09/23/18 1616 insulin NPH and regular human 70-30 (HUMULIN 70-30 U-100 INSULIN) 100 unit/ mL (70-30) [id number] Units, 70 Units, Subcutaneous, QAM+PM, Movva, Truong, MBBS , 70 Units at 09/23/18 1619 ipratropium-albuterol (DUONEB) 0.5 mg-3 mg(2.5 mg base)/3 mL nebulizer solution 3 mL, 3 mL, Inhalation, QID, Movva, Truong, MBBS, 3 mL at 09/22/18 1140 ipratropium-albuterol (DUONEB) 0.5 mg-3 mg(2.5 mg base)/3 mL nebulizer solution 3 mL, 3 mL, Inhalation, QIDPRN, Movva, Truong, MBBS simvastatin (ZOCOR) tablet 40 mg, 40 mg, Oral, QHS, Movva, Truong, MBBS, 40 mg at 09/23/182028 Sliding Scale Insulin - Aspart (NOVOLOG) + Fsbg Testing, , Subcutaneous, AC , Movva, Truong, MBBS, 2 Units at 09/23/18 1619 Truong martinez MBBS - 09/23/2018 2:06 PM CDT Hospitalist Medicine Progress Note SUBJECTIVE: Patient with SOB improving PHYSICAL EXAM: Vitals: 09/23/18 0450 09/23/18 0725 09/23/18 0800 09/23/18 1200 BP: 108/60 125/53 123/53 Pulse: 64 64 60 Resp: 18 16 18 18 Temp: 36.6 C (97.8 F) 36.5 C (97.7 F) 36.4 C (97.5 F) TempSrc: Oral Oral Oral SpO2: 91% 93% 91% 97% Weight: Height: Constitutional: obese Eyes: EOMI PERRLA ENT: OP clear. Neck supple Respiratory: No chest wall tenderness, equal and symmetric expansion b/l CTA b/l Cardiovascular : Regular rate and rhythm S1S2 normal. No murmur. B/l LE edema GI: abd Soft ND NT no organomegaly Neuro: CN 3-12 grossly normal. No focal neuro deficits Skin: b/l LE erythema warmth and TTP Musculoskeletal: Normal range of motion. No spinal TTP Hematological: No petechia or purpura no extensive lymphadenopathy LABS/imaging- reviewed pertinent labs as below: Recent Results (from the past 24 hour(s)) POCT GLUCOSE (AUTOMATED) Collection Time: 09/22/18 4:04 PM Result Value Ref Range POCT GLU 267 (H) 70 - 110 mg/dL POCT GLUCOSE (AUTOMATED) Collection Time: 09/23/18 7:40 AM Result Value Ref Range POCT GLU 203 (H) 70 - 110 mg/dL POCT GLUCOSE (AUTOMATED) Collection Time: 09/23/18 11:29 AM Result Value Ref Range POCT GLU 221 (H) 70 - 110 mg/dL Current Meds reviewed Current Facility-Administered Medications: furosemide (LASIX) injection 40 mg, 40 mg, Slow IV Push, Q8H, Bridgette Renae MD, 40 mg at 09/23/18 0601 metOLazone (ZAROXOLYN) tablet 5 mg, 5 mg, Oral, Q OTHERDAY, Bridgette Renae MD, 5 mg at 09/23/18 0909 sodium chloride (OCEAN MIST NASAL) 0.65 % nasal spray 1 [place], 1 [place], Nasal, BIDPRN, Truong Winters, SHELBIBS, 1 [place] at 09/23/18 0954 spironolactone (ALDACTONE) tablet 25 mg, 25 mg, Oral, BID, Bridgette Renae MD, 25 mg at 09/23/18 0909 acetaminophen (TYLENOL) tablet 650 mg, 650 mg, Oral, Q6HPRN, [place], Truong, MBBS carvedilol (COREG) tablet 25 mg, 25 mg, Oral, BID, Movva, Truong, MBBS, 25 mg at 09/23/18 0909 clindamycin in d5w (CLEOCIN) 600 mg/50 mL 600 mg piggyback, 600 mg, IV Piggyback, Q8H ABX, Movva, Truong, MBBS, 600 mg at 09/23/18 1130 HYDROcodone-acetaminophen (NORCO) 10-325 mg tablet 1 tablet, 1 tablet, Oral , Q6HPRN, Movva, Truong, MBBS, 1 tablet at 09/23/18 1342 insulin NPH and regular human 70-30 (HUMULIN 70-30 U-100 INSULIN) 100 unit/ mL (70-30) [id number] Units, 70 Units, Subcutaneous, QAM+PM, MovTruong shane, MBBS , 70 Units at 09/23/18 0803 ipratropium-albuterol (DUONEB) 0.5 mg-3 mg(2.5 mg base)/3 mL nebulizer solution 3 mL, 3 mL, Inhalation, QID, Truong Winters, MBBS, 3 mL at 09/22/18 1140 ipratropium-albuterol (DUONEB) 0.5 mg-3 mg(2.5 mg base)/3 mL nebulizer solution 3 mL, 3 mL, Inhalation, QIDPRN, Movva, Truong, MBBS losartan (COZAAR) tablet 25 mg, 25 mg, Oral, QHS, Movva, Truong, MBBS, 25 mg at 09/21/182009 simvastatin (ZOCOR) tablet 40 mg, 40 mg, Oral, QHS, Movva, Truong, MBBS, 40 mg at 09/22/182101 Sliding Scale Insulin - Aspart (NOVOLOG) + Fsbg Testing, , Subcutaneous, AC , Movva, Truong, MBBS, 2 Units at 09/23/18 114 traMADol (ULTRAM) tablet 50 mg, 50 mg, Oral, Q8HPRN, Movva, Truong, MBBS ASSESSMENT/PLAN B/L LE cellulitis superimposed on chronic lymphedema: still not significantly improved despite abx. Start IV levaquin and cont IV clindamycin AOC diastolic heart failure with resultant acute hypoxic respiratory failure: now off oxygen and respiratory failure resolved. Oxygen . Continue home bumex. IV Lasix and spironolactone DM; Poor control. Continue home NPH and SSI CKD: STAGE 1. Stable. HTN: continue home meds COPD: Stable. Continue nebs Nephrotic syndrome: IV lasix per renal. Hypokalemia and hypomagnesemia: Replace and am labs DVT prophylaxis: scd Code Status cpr Dispo: home Makenna Dominguez - 09/23/2018 1:17 PM CDTFollow up visit with patient. Patient positive. Assured patient of continued care and availability Shan Martin RN - 2018 9:40 AM CDTThis case is appropriate for inpatient admission. The change to inpatient admission is based on the level care this patient is receiving, medical necessity, risks associated and the expected duration of stay. The inpatient admission order has been entered per Dr. Winters. Precert status changed to Patient Class Change and inpatient registration notified via WQ to update/notify insurance. Shan Frederick RN, BSN [facility] [place] O [id number] [phone] Truong Johnson MBBS - 09/22/2018 3:03 PM CDT Hospitalist Medicine Progress Note SUBJECTIVE: Patient with SOB improving PHYSICAL EXAM: Vitals: 09/22/18 1014 09/22/18 1141 09/22/18 1150 09/22/18 1200 BP: 111/51 125/52 Pulse: 60 62 Resp: 16 16 20 Temp: 36.5 C (97.7 F) TempSrc: Oral SpO2: 96% 95% 100% Weight: Height: Constitutional: obese Eyes: EOMI PERRLA ENT: OP clear. Neck supple Respiratory: No chest wall tenderness, equal and symmetric expansion b/l CTA b/l Cardiovascular : Regular rate and rhythm S1S2 normal. No murmur. B/l LE edema GI: abd Soft ND NT no organomegaly Neuro: CN 3-12 grossly normal. No focal neuro deficits Skin: b/l LE erythema warmth and TTP Musculoskeletal: Normal range of motion. No spinal TTP Hematological: No petechia or purpura no extensive lymphadenopathy LABS/imaging- reviewed pertinent labs as below: Recent Results (from the past 24 hour(s)) CBC WITH DIFFERENTIAL Collection Time: 09/21/18 5:02 PM Result Value Ref Range WBC 5.89 4.30 - 11.10 10*3/L RBC 4.61 3.93 - 5.25 10*6/L HGB 12.7 11.6 - 15.0 g/dL HCT 39.7 35.7 - 45.2 % MCV 86.1 80.6 - 95.5 fL MCH 27.5 25.9 - 32.8 pg MCHC 32.0 31.6 - 35.1 g/dL RDW-SD 43.5 39.0 - 49.9 fL RDW-CV 14.1 12.0 - 15.5 % PLT 203 166 - 358 10*3/L MPV 11.1 9.5 - 12.9 fL NRBC/100 WBC 0.0 0.0 - 10.0 /100 WBCs NRBC x10^3 <0.01 10*3/L GRAN MAT (NEUT) % 61.5 % IMM GRAN % 0.70 % LYMPH % 25.5 % MONO % 8.7 % EOS % 3.1 % BASO % 0.5 % GRAN MAT x10^3(ANC) 3.63 1.88 - 7.09 10*3/uL IMM GRAN x10^3 0.04 0.00 - 0.06 10*3/uL LYMPH x10^3 1.50 1.32 - 3.29 10*3/uL MONO x10^3 0.51 0.33 - 0.92 10*3/uL EOS x10^3 0.18 0.03 - 0.39 10*3/uL BASO x10^3 0.03 0.01 - 0.07 10*3/uL COMP. METABOLIC PANEL (98596) Collection Time: 09/21/18 5:02 PM Result Value Ref Range NA 137 135 - 145 mmol/L K 3.7 3.5 - 5.0 mmol/L CL 96 (L) 98 - 108 mmol/L CO2 TOTAL 32 (H) 23 - 31 mmol/L AGAP 9 2 - 16 BUN 15 7 - 23 mg/dL GLUCOSE 364 (H) 70 - 110 mg/dL CREATININE 0.62 0.50 - 1.04 mg/dL TOTAL BILI 0.4 0.1 - 1.1 mg/dL CALCIUM 8.2 (L) 8.6 - 10.6 mg/dL T PROTEIN 6.5 6.3 - 8.2 g/dL ALBUMIN 3.7 3.5 - 5.0 g/dL ALK PHOS 128 (H) 34 - 122 U/L ALT(SGPT) 10 9 - 51 U/L AST(SGOT) 18 13 - 40 U/L eGFR Calculation (Non-) 93.6 mL/min/1.73m2 eGFR Calculation () 113.4 mL/min/1.73m2 N-TERMINAL PRO-BNP Collection Time: 09/21/18 5:02 PM Result Value Ref Range NT-proBNP 179 <=450 pg/mL Lactic Acid Whole Blood Collection Time: 09/21/18 5:02 PM Result Value Ref Range LACTIC ACID 2.27 (H) 0.50 - 2.20 mmol/L BLOOD CULTURE SCREEN Collection Time: 09/21/18 5:03 PM Result Value Ref Range Blood Culture-Aerobic Culture In Progress No growth Blood Culture-Anaerobic Culture In Progress No growth BLOOD CULTURE SCREEN Collection Time: 09/21/18 5:43 PM Result Value Ref Range Blood Culture-Aerobic Culture In Progress No growth Blood Culture-Anaerobic Culture In Progress No growth POCT GLUCOSE (AUTOMATED) Collection Time: 09/21/18 7:56 PM Result Value Ref Range POCT GLU 299 (H) 70 - 110 mg/dL Lactic Acid Whole Blood Collection Time: 09/21/18 9:57 PM Result Value Ref Range LACTIC ACID 1.58 0.50 - 2.20 mmol/L Basic Metabolic Panel (NA, K, CL, CO2, GLUCOSE, BUN, CREATININE, CA) Collection Time: 09/22/18 4:34 AM Result Value Ref Range NA 139 135 - 145 mmol/L K 3.5 3.5 - 5.0 mmol/L CL 98 98 - 108 mmol/L CO2 TOTAL 33 (H) 23 - 31 mmol/L AGAP 8 2 - 16 BUN 16 7 - 23 mg/dL GLUCOSE 156 (H) 70 - 110 mg/dL CREATININE 0.58 0.50 - 1.04 mg/dL CALCIUM 8.6 8.6 - 10.6 mg/dL eGFR Calculation (Non-) 101.1 mL/min/1.73m2 eGFR Calculation () 122.5 mL/min/1.73m2 Magnesium Serum Collection Time: 09/22/18 4:34 AM Result Value Ref Range MAGNESIUM 1.6 (L) 1.7 - 2.4 mg/dL CBC WITH DIFFERENTIAL Collection Time: 09/22/18 4:34 AM Result Value Ref Range WBC 5.85 4.30 - 11.10 10*3/L RBC 4.45 3.93 - 5.25 10*6/L HGB 12.3 11.6 - 15.0 g/dL HCT 37.6 35.7 - 45.2 % MCV 84.5 80.6 - 95.5 fL MCH 27.6 25.9 - 32.8 pg MCHC 32.7 31.6 - 35.1 g/dL RDW-SD 43.3 39.0 - 49.9 fL RDW-CV 14.2 12.0 - 15.5 % PLT 189 166 - 358 10*3/L MPV 12.3 9.5 - 12.9 fL NRBC/100 WBC 0.0 0.0 - 10.0 /100 WBCs NRBC x10^3 <0.01 10*3/L GRAN MAT (NEUT) % 52.8 % IMM GRAN % 1.20 % LYMPH % 29.9 % MONO % 11.1 % EOS % 4.3 % BASO % 0.7 % GRAN MAT x10^3(ANC) 3.09 1.88 - 7.09 10*3/uL IMM GRAN x10^3 0.07 (H) 0.00 - 0.06 10*3/uL LYMPH x10^3 1.75 1.32 - 3.29 10*3/uL MONO x10^3 0.65 0.33 - 0.92 10*3/uL EOS x10^3 0.25 0.03 - 0.39 10*3/uL BASO x10^3 0.04 0.01 - 0.07 10*3/uL POCT GLUCOSE (AUTOMATED) Collection Time: 09/22/18 7:58 AM Result Value Ref Range POCT GLU 145 (H) 70 - 110 mg/dL POCT GLUCOSE (AUTOMATED) Collection Time: 09/22/18 11:49 AM Result Value Ref Range POCT GLU 290 (H) 70 - 110 mg/dL Current Meds reviewed Current Facility-Administered Medications: sodium chloride (OCEAN MIST NASAL) 0.65 % nasal spray 1 [place], 1 [place], Nasal, BIDPRN, Movva, Truong, MBBS, 1 [place] at 09/22/18 1502 acetaminophen (TYLENOL) tablet 650 mg, 650 mg, Oral, Q6HPRN, Movva, Truong, MBBS bumetanide (BUMEX) tablet 1 mg, 1 mg, Oral, BID, Movva, Truong, MBBS, 1 mg at 09/22/18 0848 carvedilol (COREG) tablet 25 mg, 25 mg, Oral, BID, Movva, Truong, MBBS, 25 mg at 09/22/18 1109 clindamycin in d5w (CLEOCIN) 600 mg/50 mL 600 mg piggyback, 600 mg, IV Piggyback, Q8H ABX, Movva, Truong, MBBS, 600 mg at 09/22/18 1130 HYDROcodone-acetaminophen (NORCO) 10-325 mg tablet 1 tablet, 1 tablet, Oral , Q6HPRN, Movva, Truong, MBBS, 1 tablet at 09/22/18 0440 insulin NPH and regular human 70-30 (HUMULIN 70-30 U-100 INSULIN) 100 unit/ mL (70-30) [id number] Units, 70 Units, Subcutaneous, QAM+PM, Movva, Truong, MBBS , 70 Units at 09/22/18 0848 ipratropium-albuterol (DUONEB) 0.5 mg-3 mg(2.5 mg base)/3 mL nebulizer solution 3 mL, 3 mL, Inhalation, QID, Movva, Truong, MBBS, 3 mL at 09/22/18 1140 ipratropium-albuterol (DUONEB) 0.5 mg-3 mg(2.5 mg base)/3 mL nebulizer solution 3 mL, 3 mL, Inhalation, QIDPRN, Movva, Truong, MBBS losartan (COZAAR) tablet 25 mg, 25 mg, Oral, QHS, Movva, Truong, MBBS, 25 mg at 09/21/182009 simvastatin (ZOCOR) tablet 40 mg, 40 mg, Oral, QHS, Movva, Truong, MBBS, 40 mg at 09/21/182010 Sliding Scale Insulin - Aspart (NOVOLOG) + Fsbg Testing, , Subcutaneous, AC , Movva, Truong, MBBS, 4 Units at 09/22/18 1216 traMADol (ULTRAM) tablet 50 mg, 50 mg, Oral, Q8HPRN, Movva, Truong, MBBS ASSESSMENT/PLAN B/L LE cellulitis superimposed on chronic lymphedema: cont IV clindamycin AOC diastolic heart failure with resultant acute hypoxic respiratory failure: IV Lasix. Oxygen . Continue home bumex. Unclear if patient compliant with metolazone. DM; Poor control. Continue home NPH and SSI CKD: STAGE 1. Stable. HTN: continue home meds COPD: Stable. Continue nebs DVT prophylaxis: scd Code Status cpr Dispo: home Aliyah Mohan LBSW - 09/22/2018 12:03 PM CDTSubjective Patient ID: Francine Lemons is a 78 year old female. Care Management Social Functional Assessment Patient Name: Francine Lemons Age: [age] year old Sex: female Patient's Previous Admission Date at [facility]: 06/01/2018 Current diagnosis and co-morbidities: bilateral lower leg cellulitis Readmission Questions: Was patient discharged from any acute care hospital within the last 30 days: No Social Functional Assessment: Primary language spoken/preferred: Cuban Mental Status: Alert & Oriented to Person,Place & Time Information given by: Self Patient's support system: Child Name and number of support system: Jada Wong dtr [phone] and Francisco Lemons Primary Employee Services Manager: Self MPOA: No Living Arrangement: Home Address of living arrangement : [address] [place] [id number] Persons living in home: Self;Child Barriers to returning home: None Baseline functional status- ambulation: Independent Functional status-baseline personal care: Independent Baseline functional status- driving: Independent Baseline functional status- grocery shopping: Independent Functional status-baseline housekeeping: Independent Functional status-baseline meal prep: Independent Current functional status same as prior: No Current functional status- ambulation: Independent Current functional status- personal care: Independent Current functional status- driving: Requires minimal to moderate assistance Current functional status- grocery shopping: Requires minimal to moderate assistance Current functional status-house keeping: Requires minimal to moderate assistance Current functional status- meal preparation: Requires minimal to moderate assistance Do you have a PCP?: Yes Name of PCP: Dr. [facility] Agency: No Provider Services: No DME Company: No Equipment: Walker;Shower Chair;Bedside Commode;Nebulizer Hemodialysis: No Community resources utilized: None Funding Resources: Medicare Replacement Medicare Replacement name and information: [facility] Prescription coverage plan: Medicare Part D Pharmacy where meds are filled: Other Other pharmacy: [facility] Anticipated services prior to disharge: Continue Medical Eval Expected mode of discharge transportation: Same as support system Additional Recommendations for DC: Medical clearance Additional info required for discharge planning: Pending medical evaluation Recommended discharge plan: Home SFA Complete: Social Functional Assessment complete: Yes Alcohol Use Screening (AUDIT-C) How often do you have a drink containing alcohol?: Never SCORE: 0 Did patient elect to have resources provided: No Role of Care Management explained. Any issues or concerns with obtaining/affording your medications at home: no. Are you or your support system able to crop picker medications at discharge: yes. 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 [facility] [phone] [email or web address] documented in this encounter Plan of Treatment Name Type Priority Associated Diagnoses Date/Time BLOOD CULTURE SCREEN LAB STAT Bilateral lower leg 09/21/2018 5:43 PM CDT cellulitis BLOOD CULTURE SCREEN LAB STAT Bilateral lower leg 09/21/2018 5:03 PM CDT cellulitis Name Type Priority Associated Diagnoses Order Schedule BASIC METABOLIC PANEL LAB Routine EVERY MORNING AT 0500 for (NA, K, CL, CO2, GLUCOSE, 3 Days starting BUN, CREATININE, CA) 09/24/2018 until 09/26/2018, 2 completed Health Maintenance Due Date Last Done Comments [...] of 2 07/13/2007 - PCV13) INFLUENZA VACCINE (#1) 2018 HgA1C 11/30/2018 05/31/2018 CREATININE (SERUM) 09/25/2019 09/24/2018, 09/22/2018, 09/21/2018, Additional history exists documented as of this encounter Procedures Procedure Name Priority Date/Time Associated Comments Diagnosis POCT GLUCOSE Routine 09/25/2018 11:43 Results for this (AUTOMATED) AM CDT procedure are in the results section. GLYCOSYLATED Routine 09/25/2018 11:20 Results for this HEMOGLOBIN (A1C) AM CDT procedure are in the results section. POCT GLUCOSE Routine 09/25/2018 7:38 Results for this (AUTOMATED) AM CDT procedure are in the results section. BASIC METABOLIC PANEL Routine 09/25/2018 3:42 Results for this (NA, K, CL, CO2, AM CDT procedure are in GLUCOSE, BUN, the results CREATININE, CA) section. MAGNESIUM Routine 09/25/2018 3:42 Results for this AM CDT procedure are in the results section. URIC ACID Routine 09/25/2018 3:42 Results for this AM CDT procedure are in the results section. POCT GLUCOSE Routine 09/24/2018 3:54 Results for this (AUTOMATED) PM CDT procedure are in the results section. POCT GLUCOSE Routine 09/24/2018 11:27 Results for this (AUTOMATED) AM CDT procedure are in the results section. POCT GLUCOSE Routine 09/24/2018 7:29 Results for this (AUTOMATED) AM CDT procedure are in the results section. BASIC METABOLIC PANEL Routine 09/24/2018 3:00 Results for this (NA, K, CL, CO2, AM CDT procedure are in GLUCOSE, BUN, the results CREATININE, CA) section. MAGNESIUM Routine 09/24/2018 3:00 Results for this AM CDT procedure are in the results section. URIC ACID Routine 09/24/2018 3:00 Results for this AM CDT procedure are in the results section. PHOSPHORUS Routine 09/24/2018 3:00 Results for this AM CDT procedure are in the results section. POCT GLUCOSE Routine 09/23/2018 3:51 Results for this (AUTOMATED) PM CDT procedure are in the results section. POCT GLUCOSE Routine 09/23/2018 11:29 Results for this (AUTOMATED) AM CDT procedure are in the results section. POCT GLUCOSE Routine 09/23/2018 7:40 Results for this (AUTOMATED) AM CDT procedure are in the results section. POCT GLUCOSE Routine 09/22/2018 4:04 Results for this (AUTOMATED) PM CDT procedure are in the results section. POCT GLUCOSE Routine 09/22/2018 11:49 Results for this (AUTOMATED) AM CDT procedure are in the results section. POCT GLUCOSE Routine 09/22/2018 7:58 Results for this (AUTOMATED) AM CDT procedure are in the results section. CBC WITH DIFFERENTIAL Routine 09/22/2018 4:34 Results for this AM CDT procedure are in the results section. CBC WITH DIFF Routine 09/22/2018 4:34 Results for this AM CDT procedure are in the results section. BASIC METABOLIC PANEL Routine 09/22/2018 4:34 Results for this (NA, K, CL, CO2, AM CDT procedure are in GLUCOSE, BUN, the results CREATININE, CA) section. MAGNESIUM Routine 09/22/2018 4:34 Results for this AM CDT procedure are in the results section. LACTIC ACID WHOLE STAT 09/21/2018 9:57 Results for this BLOOD PM CDT procedure are in the results section. POCT GLUCOSE Routine 09/21/2018 7:56 Results for this (AUTOMATED) PM CDT procedure are in the results section. CBC WITH DIFFERENTIAL STAT 09/21/2018 5:02 Bilateral lower leg Results for this PM CDT cellulitis procedure are in the results section. LACTIC ACID WHOLE STAT 09/21/2018 5:02 Bilateral lower leg Results for this BLOOD PM CDT cellulitis procedure are in the results section. N-TERMINAL PRO-BNP STAT 09/21/2018 5:02 Bilateral lower leg Results for this PM CDT cellulitis procedure are in the results section. COMP. METABOLIC PANEL STAT 09/21/2018 5:02 Bilateral lower leg Results for this (90100) PM CDT cellulitis procedure are in the results section. ASSIGNMENT OF Routine 09/21/2018 4:21 BENEFITS PM CDT XR CHEST 1 VW STAT 09/21/2018 3:51 Bilateral lower leg Results for this PM CDT cellulitis procedure are in the results section. NOTICE OF PRIVACY Routine 09/21/2018 2:54 PRACTICES PM CDT BILATERAL VENOUS Routine 09/21/2018 2:06 DUPLEX LOWER PM CDT EXTREMITY BY VASCULAR LAB documented in this encounter Results POCT GLUCOSE (AUTOMATED) (09/25/2018 11:43 AM CDT) POCT GLU 185 (H) 70 - 110 mg/dL [facility] Specimen Blood Performing Organization Address City/State/Zipcode Phone Number [facility] CLIA: [id number], [address] [place] [address] GLYCOSYLATED HEMOGLOBIN (A1C) (09/25/2018 11:20 AM CDT) HGB A1C 11.2 (H) 4.0 - 6.0 % NGSP [facility] Specimen Blood - HAND, LEFT Narrative Performed At %A1C (NGSP) Interpretation (ADA) [facility] 4.8-5.6 Normal or (Non-Diabetic Range) 5.7-6.4 Increased Risk (Pre-Diabetic) >6.5Diabetes Indicated Performing Organization Address [facility] Phone Number [facility] CLIA: [id number], [address] [place] [address] POCT GLUCOSE (AUTOMATED) (09/25/2018 7:38 AM CDT) POCT GLU 147 (H) 70 - 110 mg/dL [facility] Specimen Blood Performing Organization Address [facility] Phone Number [facility] CLIA: [id number], [address] [place] [address] MAGNESIUM (09/25/2018 3:42 AM CDT) MAGNESIUM 2.2 1.7 - 2.4 mg/dL [facility] Specimen Blood - HAND, RIGHT Performing Organization Address [facility] Phone Number [facility] CLIA: [id number], [address] [place] [address] URIC ACID (09/25/2018 3:42 AM CDT) URIC ACID 7.2 (H) 2.9 - 6.0 mg/dL [facility] Specimen Blood - HAND, RIGHT Performing Organization Address [facility] Phone Number [facility] CLIA: [id number], [address] [place] [address] BASIC METABOLIC PANEL (NA, K, CL, CO2, GLUCOSE, BUN, CREATININE, CA) (2018 3:42 AM CDT) NA 133 (L) 135 - 145 [facility] mmol/L [facility] K 3.4 (L) 3.5 - 5.0 [facility] mmol/L [facility] CL 88 (L) 98 - 108 mmol/L [facility] CO2 TOTAL 38 (H) 23 - 31 mmol/L [facility] AGAP 7 2 - 16 [facility] BUN 19 7 - 23 mg/dL [facility] GLUCOSE 82 70 - 110 mg/dL [facility] CREATININE 0.79 0.50 - 1.04 [facility] mg/dL [facility] CALCIUM 9.6 8.6 - 10.6 [facility] mg/dL [facility] eGFR Calculation 70.8 mL/min/1.73m2 [facility] ([facility] LABORATORY [place]) eGFR Calculation 85.8 mL/min/1.73m2 [facility] () [facility] Specimen Blood - HAND, RIGHT Narrative Performed At Association of Glomerular Filtration Rate (GFR) [facility] and Staging of Kidney Disease* + + +- + | GFR (mL/min/1.73 m2)| With Kidney Damage|Without Kidney Damage + + +- + |>90| Stage one| Normal + + +- + |60-89|S tage two| Decreased GFR + + +- + |30-59|S tage three| Stage three + + +- + |15-29|S tage four | Stage four + + +- + |<15 (or dialysis)|Stage five | Stage five + + +- + *Each stage assumes the associated GFR level has been in effect for at least three months.Stages 1 to 5, with or without kidney disease, indicate chronic kidney disease. Notes: Determination of stages one and two (with eGFR >59mL/min/1.73 m2) requires estimation of kidney damage for at least three months as defined by structural or functional abnormalities of the kidney, manifested by either: Pathological abnormalities or Markers of kidney damage (including abnormalities in the composition of the blood or urine or abnormalities in imaging tests). Performing Organization Address City/[facility] Phone Number [facility] CLIA: [id number], [address] [place] [address] POCT GLUCOSE (AUTOMATED) (09/24/2018 3:54 PM CDT) [facility] POCT GLU 207 (H) 70 - 110 mg/dL [facility] Specimen Blood Performing Organization Address [facility] Phone Number [facility] CLIA: [id number], [address] [place] [address] POCT GLUCOSE (AUTOMATED) (09/24/2018 11:27 AM CDT) POCT GLU 180 (H) 70 - 110 mg/dL [facility] Specimen Blood Performing Organization Address [facility] Phone Number [facility] CLIA: [id number], [address] [place] [address] POCT GLUCOSE (AUTOMATED) (09/24/2018 7:29 AM CDT) POCT GLU 197 (H) 70 - 110 mg/dL [facility] Specimen Blood Performing Organization Address [facility] Phone Number [facility] CLIA: [id number], [address] [place] [address] PHOSPHORUS (09/24/2018 3:00 AM CDT) PHOSPHORUS 3.8 2.5 - 5.0 mg/dL [facility] Specimen Blood - ARM, LEFT Performing Organization Address [facility] Phone Number [facility] CLIA: [id number], [address] [place] [address] URIC ACID (09/24/2018 3:00 AM CDT) URIC ACID 6.7 (H) 2.9 - 6.0 mg/dL [facility] Specimen Blood - ARM, LEFT Performing Organization Address [facility] Phone Number [facility] CLIA: [id number], [address] [place] [address] MAGNESIUM (09/24/2018 3:00 AM CDT) MAGNESIUM 1.4 (L) 1.7 - 2.4 mg/dL [facility] Specimen Blood - ARM, LEFT Performing Organization Address [facility] Phone Number [facility] CLIA: [id number], [address] [place] [address] BASIC METABOLIC PANEL (NA, K, CL, CO2, GLUCOSE, BUN, CREATININE, CA) (2018 3:00 AM CDT) NA 136 135 - 145 [facility] mmol/L [facility] K 3.5 3.5 - 5.0 [facility] mmol/L HOSPITAL LABORATORY CL 91 (L) 98 - 108 mmol/L [facility] CO2 TOTAL 36 (H) 23 - 31 mmol/L [facility] AGAP 9 2 - 16 [facility] BUN 21 7 - 23 mg/dL [facility] GLUCOSE 216 (H) 70 - 110 mg/dL [facility] CREATININE 0.77 0.50 - 1.04 [facility] mg/dL [facility] CALCIUM 8.4 (L) 8.6 - 10.6 [facility] mg/dL [facility] LAB[facility] eGFR Calculation 72.9 mL/min/1.73m2 [facility] ([facility] LABORATORY [place]) eGFR Calculation 88.3 mL/min/1.73m2 [facility] () [facility] Specimen Blood - ARM, LEFT Narrative Performed At Association of Glomerular Filtration Rate (GFR) [facility] LAB[facility] and Staging of Kidney Disease* + + +- + | GFR (mL/min/1.73 m2)| With Kidney Damage|Without Kidney Damage + + +- + |>90| Stage one| Normal + + +- + |60-89|S tage two| Decreased GFR + + +- + |30-59|S tage three| Stage three + + +- + |15-29|S tage four | Stage four + + +- + |<15 (or dialysis)|Stage five | Stage five + + +- + *Each stage assumes the associated GFR level has been in effect for at least three months.Stages 1 to 5, with or without kidney disease, indicate chronic kidney disease. Notes: Determination of stages one and two (with eGFR >59mL/min/1.73 m2) requires estimation of kidney damage for at least three months as defined by structural or functional abnormalities of the kidney, manifested by either: Pathological abnormalities or Markers of kidney damage (including abnormalities in the composition of the blood or urine or abnormalities in imaging tests). Performing Organization Address [facility] Phone Number [facility] CLIA: [id number], [address] [place] [address] POCT GLUCOSE (AUTOMATED) (09/23/2018 3:51 PM CDT) [facility] POCT GLU 250 (H) 70 - 110 mg/dL [facility] LABOR[facility] Specimen Blood Performing Organization Address City/[facility] Phone Number [facility] CLIA: [id number], [address] [place], [place] [address] LABORAT[address] POCT GLUCOSE (AUTOMATED) (09/23/2018 11:29 AM CDT) POCT GLU 221 (H) 70 - 110 mg/dL [facility] LABOR[facility]ORY Specimen Blood Performing Organization Address City/[facility] Phone Number [facility] CLIA: [id number], [address] [place] [address] POCT GLUCOSE (AUTOMATED) (09/23/2018 7:40 AM CDT) POCT GLU 203 (H) 70 - 110 mg/dL [facility] LABOR[facility]ORY Specimen Blood Performing Organization Address City/[facility] Phone Number [facility] CLIA: [id number], [address] [place] [address] POCT GLUCOSE (AUTOMATED) (09/22/2018 4:04 PM CDT) POCT GLU 267 (H) 70 - 110 mg/dL [facility]OR[facility] Specimen Blood Performing Organization Address [facility] Phone Number [facility] CLIA: [id number], [address] [place] [address] POCT GLUCOSE (AUTOMATED) (09/22/2018 11:49 AM CDT) POCT GLU 290 (H) 70 - 110 mg/dL [facility]OR[facility] Specimen Blood Performing Organization Address [facility] Phone Number [facility] CLIA: [id number], [address] [place] [address] POCT GLUCOSE (AUTOMATED) (09/22/2018 7:58 AM CDT) POCT GLU 145 (H) 70 - 110 mg/dL [facility] Specimen Blood Performing Organization Address [facility] Phone Number [facility] CLIA: [id number], [address] [place] [address] CBC WITH DIFFERENTIAL (09/22/2018 4:34 AM CDT) WBC 5.85 4.30 - 11.10 [facility] 10*3/L [facility] LABORATORY RBC 4.45 3.93 - 5.25 [facility] 10*6/L HOSPITAL LABORATORY HGB 12.3 11.6 - 15.0 [facility] g/dL HOSPITAL LABORATORY HCT 37.6 35.7 - 45.2 % [facility] MCV 84.5 80.6 - 95.5 fL [facility]OR[facility]ORY MCH 27.6 25.9 - 32.8 pg [facility] LABORATORY MCHC 32.7 31.6 - 35.1 [facility] g/dL HOSPITAL LABORATORY RDW-SD 43.3 39.0 - 49.9 fL [facility] RDW-CV 14.2 12.0 - 15.5 % [facility]OR[facility] PLT 189 166 - 358 [facility] 10*3/L [facility] MPV 12.3 9.5 - 12.9 fL [facility] NRBC/100 WBC 0.0 0.0 - 10.0 /100 [facility] WBCs [facility] NRBC x10^3 <0.01 10*3/L [facility]OR[facility]ORY GRAN MAT (NEUT) % 52.8 % [facility] LABOR[facility] IMM GRAN % 1.20 % [facility] LYMPH % 29.9 % [facility] MONO % 11.1 % [facility] LABOR[facility]ORY EOS % 4.3 % [facility] LABOR[facility]ORY BASO % 0.7 % [facility] LABOR[facility]ORY GRAN MAT x10^3(ANC) 3.09 1.88 - 7.09 [facility] 10*3/uL HOSPITAL LABORATORY IMM GRAN x10^3 0.07 (H) 0.00 - 0.06 [facility] 10*3/uL HOSPITAL LABORATORY LYMPH x10^3 1.75 1.32 - 3.29 [facility] 10*3/uL HOSPITAL LABORATORY MONO x10^3 0.65 0.33 - 0.92 [facility] 10*3/uL HOSPITAL LABORATORY EOS x10^3 0.25 0.03 - 0.39 [facility] 10*3/uL HOSPITAL LABORATORY BASO x10^3 0.04 0.01 - 0.07 [facility] 10*3/uL HOSPITAL LABORATORY Specimen Blood - ARM, RIGHT Performing Organization Address City/State/Zipcode Phone Number [facility] CLIA: [id number], [address] [place] [address] Magnesium Serum (09/22/2018 4:34 AM CDT) MAGNESIUM 1.6 (L) 1.7 - 2.4 mg/dL [facility] LABORATORY Specimen Blood - ARM, RIGHT Performing Organization Address City/State/Zipcode Phone Number [facility] CLIA: [id number], [address] [place] [address] Basic Metabolic Panel (NA, K, CL, CO2, GLUCOSE, BUN, CREATININE, CA) (2018 4:34 AM CDT) NA 139 135 - 145 [facility] mmol/L [facility] K 3.5 3.5 - 5.0 [facility] mmol/L [facility] CL 98 98 - 108 mmol/L [facility] CO2 TOTAL 33 (H) 23 - 31 mmol/L [facility]ORY AGAP 8 2 - 16 [facility] BUN 16 7 - 23 mg/dL [facility] GLUCOSE 156 (H) 70 - 110 mg/dL [facility] CREATININE 0.58 0.50 - 1.04 [facility] mg/dL [facility]ORY CALCIUM 8.6 8.6 - 10.6 [facility] mg/dL [facility] LAB[facility]ORY eGFR Calculation 101.1 mL/min/1.73m2 [facility] ([facility] LABORATORY [place]) eGFR Calculation 122.5 mL/min/1.73m2 [facility] () [facility] Specimen Blood - ARM, RIGHT Narrative Performed At Association of Glomerular Filtration Rate (GFR) [facility] LAB[facility]ORY and Staging of Kidney Disease* + + +- + | GFR (mL/min/1.73 m2)| With Kidney Damage|Without Kidney Damage + + +- + |>90| Stage one| Normal + + +- + |60-89|S tage two| Decreased GFR + + +- + |30-59|S tage three| Stage three + + +- + |15-29|S tage four | Stage four + + +- + |<15 (or dialysis)|Stage five | Stage five + + +- + *Each stage assumes the associated GFR level has been in effect for at least three months.Stages 1 to 5, with or without kidney disease, indicate chronic kidney disease. Notes: Determination of stages one and two (with eGFR >59mL/min/1.73 m2) requires estimation of kidney damage for at least three months as defined by structural or functional abnormalities of the kidney, manifested by either: Pathological abnormalities or Markers of kidney damage (including abnormalities in the composition of the blood or urine or abnormalities in imaging tests). Performing Organization Address City/[facility] Phone Number [facility] CLIA: [id number], [address] [place] [address] Lactic Acid Whole Blood (09/21/2018 9:57 PM CDT) LACTIC ACID 1.58 0.50 - 2.20 mmol/L [facility] LABOR[facility]ORY Specimen Blood - ARM, RIGHT Performing Organization Address [facility]/[facility] Phone Number [facility] CLIA: [id number], [address] [place] [address] POCT GLUCOSE (AUTOMATED) (09/21/2018 7:56 PM CDT) [facility] POCT GLU 299 (H) 70 - 110 mg/dL [facility] Specimen Blood Performing Organization Address [facility] Phone [facility] [facility] CLIA: [id number], [address] [place], [place] [address] LAB[address]AT[address] Lactic Acid Whole Blood (09/21/2018 5:02 PM CDT) [facility] Signature LACTIC ACID 2.27 (H) 0.50 - 2.20 mmol/L [facility] LABORATORY Specimen Blood - VENOUS Performing Organization Address [facility] [place] Phone Number [facility] CLIA: [id number], [address] [place] [address] N-TERMINAL PRO-BNP (09/21/2018 5:02 PM CDT) NT-proBNP 179 <=450 pg/mL [facility] LABORATORY Specimen Blood - VENOUS Narrative Performed At Biotin has been reported to cause a negative [facility] LABORATORY bias, interpret results relative to patient's use of biotin. Performing Organization Address [facility] Phone Number [facility] CLIA: [id number], [address] [place] [address] COMP. METABOLIC PANEL (36684) (09/21/2018 5:02 PM CDT) NA 137 135 - 145 [facility] mmol/L HOSPITAL LABORATORY K 3.7 3.5 - 5.0 [facility] mmol/L HOSPITAL LABORATORY CL 96 (L) 98 - 108 mmol/L [facility] LABORATORY CO2 TOTAL 32 (H) 23 - 31 mmol/L [facility] LABORATORY AGAP 9 2 - 16 [facility] LABORAT[facility] BUN 15 7 - 23 mg/dL [facility] LABORATORY GLUCOSE 364 (H) 70 - 110 mg/dL [facility] LABORATORY CREATININE 0.62 0.50 - 1.04 [facility] mg/dL [facility] LABORATORY TOTAL BILI 0.4 0.1 - 1.1 mg/dL [facility] LABORATORY CALCIUM 8.2 (L) 8.6 - 10.6 [facility] mg/dL [facility] LABORATORY T PROTEIN 6.5 6.3 - 8.2 g/dL [facility] LABORATORY ALBUMIN 3.7 3.5 - 5.0 g/dL [facility] LABORATORY ALK PHOS 128 (H) 34 - 122 U/L [facility] LABORATORY ALT(SGPT) 10 9 - 51 U/L [facility] LABORATORY AST(SGOT) 18 13 - 40 U/L [facility] LABORATORY eGFR Calculation 93.6 mL/min/1.73m2 [facility] [place] eGFR Calculation 113.4 mL/min/1.73m2 [facility] () [facility] LABORATORY Specimen Blood - VENOUS Narrative Performed At Association of Glomerular Filtration Rate (GFR) [facility] LABORATORY and Staging of Kidney Disease* + + +- + | GFR (mL/min/1.73 m2)| With Kidney Damage|Without Kidney Damage + + +- + |>90| Stage one| Normal + + +- + |60-89|S tage two| Decreased GFR + + +- + |30-59|S tage three| Stage three + + +- + |15-29|S tage four | Stage four + + +- + |<15 (or dialysis)|Stage five | Stage five + + +- + *Each stage assumes the associated GFR level has been in effect for at least three months.Stages 1 to 5, with or without kidney disease, indicate chronic kidney disease. Notes: Determination of stages one and two (with eGFR >59mL/min/1.73 m2) requires estimation of kidney damage for at least three months as defined by structural or functional abnormalities of the kidney, manifested by either: Pathological abnormalities or Markers of kidney damage (including abnormalities in the composition of the blood or urine or abnormalities in imaging tests). Performing Organization Address City/State/Zipcode Phone Number [facility] CLIA: [id number], [address] [place] [address] CBC WITH DIFFERENTIAL (09/21/2018 5:02 PM CDT) WBC 5.89 4.30 - 11.10 [facility] 10*3/L [facility] LABORATORY RBC 4.61 3.93 - 5.25 [facility] 10*6/L [facility] LABORATORY HGB 12.7 11.6 - 15.0 g/dL [facility] LABORATORY HCT 39.7 35.7 - 45.2 % [facility] LABORATORY MCV 86.1 80.6 - 95.5 fL [facility] LABORATORY MCH 27.5 25.9 - 32.8 pg [facility] LABORATORY MCHC 32.0 31.6 - 35.1 g/dL [facility] LABORATORY RDW-SD 43.5 39.0 - 49.9 fL [facility] LABORATORY RDW-CV 14.1 12.0 - 15.5 % [facility] LABORATORY PLT 203 166 - 358 [facility] 10*3/L [facility] LABORATORY MPV 11.1 9.5 - 12.9 fL [facility] LABORATORY NRBC/100 WBC 0.0 0.0 - 10.0 /100 [facility] WBCs [facility] LABORATORY NRBC x10^3 <0.01 10*3/L [facility] LABORATORY GRAN MAT (NEUT) % 61.5 % [facility] LABORATORY IMM GRAN % 0.70 % [facility] LABORATORY LYMPH % 25.5 % [facility] LABORATORY MONO % 8.7 % [facility] LABORATORY EOS % 3.1 % [facility] LABORATORY BASO % 0.5 % [facility] LABORATORY GRAN MAT x10^3(ANC) 3.63 1.88 - 7.09 [facility] 10*3/uL HOSPITAL LABORATORY IMM GRAN x10^3 0.04 0.00 - 0.06 [facility] 10*3/uL HOSPITAL LABORATORY LYMPH x10^3 1.50 1.32 - 3.29 [facility] 10*3/uL [facility] LABORATORY MONO x10^3 0.51 0.33 - 0.92 [facility] 10*3/uL [facility] LABORATORY EOS x10^3 0.18 0.03 - 0.39 [facility] 10*3/uL [facility] LABORATORY BASO x10^3 0.03 0.01 - 0.[address]/[facility] LABORATORY Specimen Blood - VENOUS Performing Organization Address City/State/Zipcode Phone Number [facility] CLIA: [id number], [address] [place] [address] XR CHEST 1 VW (09/21/2018 3:51 PM CDT) Specimen Narrative Performed At HISTORY: Lower leg edema. PACS/VR/DOSE TECHNIQUE: Portable AP erect view of the chest is obtained. Comparison is made with 07/19/2018 study. FINDINGS: No acute pneumonia. No pneumothorax or pleural effusion detected. Mild cardiomegaly noted with dilated central pulmonary arteries without nathen interstitial pulmonary edema. CONCLUSIONS: No signs of acute cardiopulmonary disease. Procedure Note [facility], Radiant Results Inft User - 09/21/2018 3:56 PM CDT HISTORY: Lower leg edema. TECHNIQUE: Portable AP erect view of the chest is obtained. Comparison is made with 07/19/2018 study. FINDINGS: No acute pneumonia. No pneumothorax or pleural effusion detected. Mild cardiomegaly noted with dilated central pulmonary arteries without nathen interstitial pulmonary edema. CONCLUSIONS: No signs of acute cardiopulmonary disease. Performing Organization Address City/State/Zipcode Phone Number PACS/VR/DOSE documented in this encounter Visit Diagnoses Diagnosis Cellulitis of lower extremity, unspecified laterality Bilateral leg edema Edema Coronary artery disease involving [place] coronary artery of [place] heart without angina pectoris Type 2 diabetes mellitus without complication, without long-term current use of insulin Anxiety Anxiety state, unspecified documented in this encounter Administered Medications Medication Order MAR Action Action Date Dose Rate Site ALPRAZolam (XANAX) tablet 0.5 mg Given 09/25/2018 7:41 AM CDT 0.5 mg 0.5 mg, Oral, TID, First dose on Thu09/24/18 at 1400, Until Discontinued, Routine Given 09/24/2018 7:36 PM CDT 0.5 mg Given 09/24/2018 2:15 PM CDT 0.5 mg calcitriol (ROCALTROL) capsule 0.5 mcg Given 09/25/2018 8:41 AM CDT 0.5 mcg 0.5 mcg, Oral, DAILY, First dose on Thu09/23/18 at 2100, Until Discontinued, Routine Given 09/24/2018 8:08 AM CDT 0.5 mcg Given 09/23/2018 10:19 PM CDT 0.5 mcg carvedilol (COREG) tablet 25 mg Given 09/24/2018 7:36 PM CDT 25 mg 25 mg, Oral, BID, First dose on Thu09/21/18 at 2000, Until Discontinued Given 09/24/2018 8:08 AM CDT 25 mg Given 09/23/2018 8:29 PM CDT 25 mg clindamycin in d5w (CLEOCIN) 600 mg/50 mL Given 09/25/2018 3:30 AM CDT 600 mg 600 mg piggyback 600 mg, IV Piggyback, Q8H ABX, First dose on Thu09/21/18 at 1930, Until Discontinued, Reason for Anti-Infective: Empiric Therapy for Suspected Infection, Empiric Therapy Site: Skin / Soft tissue, Duration of therapy: 7 days, 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 Restricted medication: MOVVA, TRUONG Given 09/24/2018 7:30 PM CDT 600 mg Given 09/24/2018 11:30 AM CDT 600 mg HYDROcodone-acetaminophen (NORCO) 10-325 Given 09/25/2018 3:36 AM CDT 1 tablet mg tablet 1 tablet 1 tablet, Oral, Q6HPRN, Starting Thu09/21/18 at 1832, Until Discontinued, Routine, Pain (scale 7-10) Given 09/24/2018 9:42 PM CDT 1 tablet Given 09/24/2018 12:56 PM CDT 1 tablet insulin NPH and regular human Given 09/25/2018 7:41 AM CDT 70 Units Abdomen-SC 70-30 (HUMULIN 70-30 U-100 INSULIN) 100 unit/mL (70-30) injection 70 Units 70 Units, Subcutaneous, QAM+PM, First dose on Thu09/22/18 at 0900, Until Discontinued Given 09/24/2018 5:06 PM CDT 70 Units Abdomen-SC Given 09/24/2018 8:08 AM CDT 70 Units Abdomen-SC ipratropium-albuterol (DUONEB) 0.5 mg-3 mg(2.5 Given 09/22/2018 11:40 AM CDT 3 mL mg base)/3 mL nebulizer solution 3 mL 3 mL, Inhalation, QID, First dose on Thu09/21/18 at 2000, Until Discontinued, Routine Given 09/22/2018 8:27 AM CDT 3 mL Given 09/21/2018 9:56 PM CDT 3 mL ipratropium-albuterol (DUONEB) 0.5 mg-3 mg(2.5 mg base)/3 mL nebulizer solution 3 mL 3 mL, Inhalation, QIDPRN, Starting Thu09/21/18 at 1828, Until Discontinued, Routine, Wheezing levoFLOXacin in D5W (LEVAQUIN) 750 mg/150 mL Given 09/24/2018 4:07 PM CDT 750 mg Piggyback 750 mg 750 mg, IV Piggyback, Q24H ABX, First dose on Thu09/23/18 at 1515, Until Discontinued, 150 mL, Reason for Anti-Infective: Empiric Therapy for Suspected Infection, Empiric Therapy Site: Urine, Duration of therapy: 7 days Given 09/23/2018 4:16 PM CDT 750 mg losartan (COZAAR) tablet 25 mg Given 09/24/2018 7:37 PM CDT 25 mg 25 mg, Oral, QHS, First dose on Thu09/24/18 at 2100, Until Discontinued, Routine magnesium oxide (MAG-OX 400) tablet 400 mg Given 09/25/2018 8:41 AM CDT 400 mg 400 mg, Oral, BID, First dose on Thu09/23/18 at 2000, Until Discontinued, Routine Given 09/24/2018 7:36 PM CDT 400 mg Given 09/24/2018 8:08 AM CDT 400 mg metOLazone (ZAROXOLYN) tablet 5 mg Given 09/25/2018 8:41 AM CDT 5 mg 5 mg, Oral, Q OTHERDAY, First dose on Thu09/23/18 at 0900, Until Discontinued, Routine Given 09/23/2018 9:09 AM CDT 5 mg simvastatin (ZOCOR) tablet 40 mg Given 09/24/2018 7:36 PM CDT 40 mg 40 mg, Oral, QHS, First dose on Thu09/21/18 at 2100, Until Discontinued, Routine Given 09/23/2018 8:29 PM CDT 40 mg Given 09/22/2018 9:02 PM CDT 40 mg Sliding Scale Insulin - Aspart Given 09/24/2018 5:06 PM CDT 2 Units Abdomen-SC (NOVOLOG) + Fsbg Testing Subcutaneous, AC, First dose on Thu09/22/18 at 0730, Until Discontinued, Routine Given 09/23/2018 4:19 PM CDT 2 Units Abdomen-SC Given 09/23/2018 11:49 AM CDT 2 Units Abdomen-SC sodium chloride (OCEAN MIST NASAL) 0.65 % Given 09/24/2018 7:47 PM CDT 1 [place] nasal spray 1 [place] 1 [place], Nasal, BIDPRN, Starting Thu09/22/18 at 1414, Until Discontinued, Routine, Dry nose Given 09/24/2018 12:56 PM CDT 1 [place] Given 09/24/2018 8:09 AM CDT 1 [place] spironolactone (ALDACTONE) tablet 50 mg Given 09/25/2018 8:41 AM CDT 50 mg 50 mg, Oral, BID, First dose on Thu09/23/18 at 2100, Until Discontinued, Routine Given 09/24/2018 7:36 PM CDT 50 mg Given 09/24/2018 8:08 AM CDT 50 mg Medication Order MAR Action Action Date Dose Rate Site bumetanide (BUMEX) tablet 1 mg Given 09/22/2018 8:48 AM CDT 1 mg 1 mg, Oral, BID, First dose on Thu09/21/18 at 2000, Until Discontinued, Routine Given 09/21/2018 8:10 PM CDT 1 mg clindamycin in 5 % dextrose (CLEOCIN) 900 Given 09/21/2018 5:49 PM CDT 900 mg mg/50 mL Piggyback 900 mg 900 mg, IV Piggyback, ONCE, 1 dose, Thu09/21/18 at 1715, 50 mL, Reason for Anti-Infective: Documented Infection, Documented Infection Site: Skin / Soft Tissue, Duration of Therapy: Other (see Comments), 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 Restricted medication: SUKHJINDER HERNANDEZ FENTanyl PF (SUBLIMAZE (PF)) injection 50 Given 09/21/2018 5:46 PM CDT 50 mcg mcg 50 mcg, Slow IV Push, ONCE, 1 dose, Thu09/21/18 at 1645, Routine furosemide (LASIX) injection 40 mg Given 09/24/2018 2:15 PM CDT 40 mg 40 mg, Slow IV Push, Q8H, 6 doses, First dose on Thu09/22/18 at 2200, Last dose on Thu09/24/18 at 1400, Routine Given 09/24/2018 4:59 AM CDT 40 mg Given 09/23/2018 10:18 PM CDT 40 mg KCL 20 mEq/15 mL solution 40 mEq Given 09/23/2018 6:45 PM CDT 40 mEq 40 mEq, Oral, ONCE, 1 dose, Thu09/23/18 at 1715, Routine KCL 20 mEq/15 mL solution 40 mEq Given 09/24/2018 11:19 AM CDT 40 mEq 40 mEq, Oral, ONCE, 1 dose, Thu09/24/18 at 0945, Routine KCL 20 mEq/15 mL solution 40 mEq Given 09/25/2018 10:05 AM CDT 40 mEq 40 mEq, Oral, ONCE, 1 dose, Thu09/25/18 at 0945, Routine LORazepam (ATIVAN) tablet 0.5 mg Given 09/24/2018 5:41 AM CDT 0.5 mg 0.5 mg, Oral, BIDPRN, Starting Thu09/23/18 at 1942, Until Thu09/24/18 at 1358, Routine, Anxiety, Hold for SBP<110, DBP<60, RR<12, and/or drowsiness/sedation Given 09/23/2018 8:29 PM CDT 0.5 mg losartan (COZAAR) tablet 25 mg Given 09/21/2018 8:10 PM CDT 25 mg 25 mg, Oral, QHS, First dose on Thu09/21/18 at 2100, Until Discontinued, Routine magnesium sulfate in water 2 gram/50 mL (4 %) New Bag 09/24/2018 7:35 PM CDT 2 g infusion 2 g 2 g, IV Piggyback, ONCE, 1 dose, Thu09/24/18 at 1600, Routine spironolactone (ALDACTONE) tablet 25 mg Given 09/23/2018 8:29 PM CDT 25 mg 25 mg, Oral, BID, First dose on Thu09/22/18 at 2000, Until Discontinued, Routine Given 09/23/2018 9:09 AM CDT 25 mg Given 09/22/2018 7:13 PM CDT 25 mg documented in this encounter Insurance Payer Benefit Plan / Subscriber ID Effective Dates Phone Address Type Group JERALD GIFFORD [id number] 2018-Presen Medicare Adv PLUS PLUS t HMO CLASSIC/VALUE documented as of this encounter
--- OUTSIDE RECORDS SUMMARY | 2018-12-25 06:05 | XMS REPORT | Summary of Care ---
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 Reason for Referral Radiology Services (STAT) Status Reason Specialty Diagnoses / Referred By Referred To Procedures Contact Contact New Request Diagnostic Diagnoses SOB (shortness of breath) Basilio Gonzalez Radiology Procedures XR CHEST 1 SRINIVASA Jiang MD [address] [place], [place] [id number] Radiology Services (STAT) Status Reason Specialty Diagnoses / Referred By Referred To Procedures Contact Contact New Request Diagnostic Diagnoses SOB (shortness of breath) Basilio Gonzalez Radiology Procedures XR CHEST 1 SRINIVASA Jiang MD [address] [place], [place] [id number] Reason for Visit Reason Comments Diarrhea Congestion Auth/Cert Status Reason Specialty Diagnoses / Referred By Referred To Procedures Contact Contact [facility] [address] [place] [address] [place] [address] Encounter Details Date Type Department Care Team Description 10/13/2018 - Emergency [facility] Basilio Gonzalez, SOB (shortness of breath) (Primary Dx); 10/14/2018 Department MD Chronic obstructive pulmonary disease, unspecified COPD type; [address] [facility] [address] Lymphedema of both lower extremities; [place] [address] [id number] Cellulitis of left lower extremity; [phone] [place], [place] Medication refill; [id number] Insomnia, unspecified type [phone] Allergies Active Allergy Reactions Severity Noted Date Comments Iodine Nausea and/or Vomiting 05/31/2018 documented as of this encounter (statuses as of 10/14/2018) Medications Medication Sig Dispensed Refills Start Date [...] Cellulitis of lower as needed for extremity, Insomnia. unspecified laterality albuterol 2.5 mg /3 Inhale 3 mL every 1 Box 0 07/11/2018 Active mL (0.083 %) 4 (four) hours as nebulizer needed for solutionIndications: Wheezing or COPD exacerbation Shortness of Breath. benzonatate 200 mg Take 1 capsule by 21 capsule 0 07/22/2018 Active capsuleIndications: mouth 3 (three) Lymphedema of both times daily as lower extremities, needed for Cough. Hypoxia ALPRAZolam (XANAX) Take 1 tablet by 42 tablet 0 09/25/2018 Active 0.5 mg mouth 3 (three) tabletIndications: times daily. Anxiety bumetanide 1 mg Take 1 tablet by 60 tablet 1 09/25/2018 Active tabletIndications: mouth daily. Cellulitis of lower extremity, unspecified laterality levoFLOXacin 750 mg Take 1 tablet by 7 tablet 0 09/25/2018 Active tabletIndications: mouth every 24 Cellulitis of lower (twenty-four) extremity, hours. unspecified laterality carvedilol 12.5 mg Take 1 tablet by 60 tablet 1 09/25/2018 Active tabletIndications: mouth 2 (two) Coronary artery times daily. disease involving [place] coronary artery of [place] heart without angina pectoris insulin NPH and inject 70 Units 10 mL 1 09/25/2018 Active regular human 70-30 under the skin (NOVOLIN 70/30 U-100 every morning and INSULIN) 100 unit/mL evening. (70-30) injectionIndications: Type 2 diabetes mellitus without complication, without long-term current use of insulin spironolactone 25 mg Take 2 tablets by 60 tablet 1 09/25/2018 Active tabletIndications: mouth 2 (two) Cellulitis of lower times daily. extremity, unspecified laterality metOLazone 5 mg Take 1 tablet by 15 tablet 0 09/27/2018 Active tabletIndications: mouth every other Bilateral leg edema day. clindamycin 300 mg Take 1 capsule by 28 capsule 0 09/25/2018 Active capsuleIndications: mouth 4 (four) Cellulitis of lower times daily. extremity, unspecified laterality cephALEXin (KEFLEX) Take 1 capsule by 14 capsule 0 10/13/2018 Active 500 mg mouth 2 (two) capsuleIndications: times daily. SOB (shortness of breath), Chronic obstructive pulmonary disease, unspecified COPD type, Cellulitis of left lower extremity, Medication refill albuterol 2.5 mg /3 Inhale 3 mL every 20 mL 0 10/13/2018 Active mL (0.083 %) 4 (four) hours. nebulizer May also nebulize solutionIndications: one extra every 6 SOB (shortness of hours. breath), Chronic obstructive pulmonary disease, unspecified COPD type, Cellulitis of left lower extremity, Medication refill albuterol 90 Inhale 2 Puffs 8.5 g 0 10/13/2018 Active mcg/actuation every 4 (four) inhalerIndications: hours as needed SOB (shortness of for Wheezing, breath), Chronic Shortness of obstructive pulmonary Breath, disease, unspecified Bronchospasm or COPD type, Cellulitis Chest tightness. of left lower extremity, Medication refill documented as of this encounter (statuses as of 10/14/2018) Active Problems Problem Noted Date Bilateral lower leg cellulitis 09/21/2018 Coronary artery disease involving [place] coronary artery of [place] heart 06/01 without angina pectoris Acute on chronic diastolic congestive heart failure 06/01/2018 Morbid obesity 06/01/2018 Type 2 diabetes mellitus without complication, without long-term current 06/01 use of insulin Essential hypertension 06/01/2018 Lower extremity pain 06/01/2018 Cellulitis 05/31/2018 Bilateral leg edema 05/31/2018 documented as of this encounter (statuses as of 10/14/2018) Social History Tobacco Use Types Packs/Day Years [...] Sign Reading Time Taken Comments Blood Pressure 154/81 10/14/2018 12:00 AM CDT Pulse 60 10/14/2018 12:00 AM CDT Temperature 36.7 C (98 F) 10/13/2018 9:41 PM CDT Respiratory Rate 16 10/14/2018 12:00 AM CDT Oxygen Saturation 95% 10/14/2018 12:00 AM CDT Inhaled Oxygen Concentration - - Weight 112.5 kg (248 lb) 10/13/2018 9:41 PM CDT Height 160 cm (5' 3") 10/13/2018 9:41 PM CDT Body Mass Index 43.93 10/13/2018 9:41 PM CDT documented in this encounter Discharge Instructions Basilio Kat MD - 10/14/2018 DIAGNOSIS Diagnoses that have been ruled out: None Diagnoses that are still under consideration: None Final diagnoses: SOB (shortness of breath) Chronic obstructive pulmonary disease, unspecified COPD type Lymphedema of both lower extremities Cellulitis of left lower extremity Medication refill Insomnia, unspecified type NO LIFE-THREATENING FINDINGS ON TODAY'S EXAM. PROCEDURES IN THE ER TODAY: Orders Placed This Encounter Procedures XR CHEST 1 VW TROPONIN I N-TERMINAL PRO-BNP BLOOD CULTURE SCREEN BLOOD CULTURE SCREEN CBC WITH DIFF COMP. METABOLIC PANEL (08917) LIPASE CBC WITH DIFFERENTIAL URINALYSIS MEDICATIONS ADMINISTERED IN THE ER TODAY AND DISCHARGE MEDICATIONS: Orders Placed This Encounter Medications ipratropium-albuterol (DUONEB) 0.5 mg-3 mg(2.5 mg base)/3 mL nebulizer solution 3 mL cephALEXin (KEFLEX) 500 mg capsule albuterol 2.5 mg /3 mL (0.083 %) nebulizer solution albuterol 90 mcg/actuation inhaler FOLLOW-UP RECOMMENDATIONS: RECOMMEND FOLLOW-UP WITH DR RICHTER DISCUSSED MAY TAKE MELATONIN TO HELP YOU GO TO SLEEP RETURN TO ER FOR WORSENING OF SYMPTOMS documented in this encounter Plan of Treatment Name Type Priority Associated Diagnoses Date/Time BLOOD CULTURE SCREEN LAB STAT SOB (shortness of breath) 10/13/2018 11:19 PM CDT BLOOD CULTURE SCREEN LAB STAT SOB (shortness of breath) 10/13/2018 11:08 PM CDT Name Type Priority Associated Diagnoses Order Schedule BLOOD CULTURE SCREEN LAB Routine SOB (shortness of breath) ONCE for 1 Occurrences starting 10/13/2018 until 10/13/2018 BLOOD CULTURE SCREEN LAB Routine SOB (shortness of breath) ONCE for 1 Occurrences starting 10/13/2018 until 10/13/2018 Health Maintenance Due Date Last Done Comments [...] - PCV13) INFLUENZA VACCINE (#1) 2018 HgA1C 03/28/2019 09/25/2018, 05/31/2018 CREATININE (SERUM) 09/26/2019 09/25/2018, 09/24/2018, 09/22/2018, Additional history exists documented as of this encounter Procedures Procedure Name Priority Date/Time Associated Comments Diagnosis URINALYSIS STAT 10/13/2018 11:24 SOB (shortness of Results for this PM CDT breath) procedure are in the results section. XR CHEST 1 VW STAT 10/13/2018 10:38 SOB (shortness of Results for this PM CDT breath) procedure are in the results section. CBC WITH DIFFERENTIAL STAT 10/13/2018 10:26 SOB (shortness of Results for this PM CDT breath) procedure are in the results section. N-TERMINAL PRO-BNP STAT 10/13/2018 10:26 SOB (shortness of Results for this PM CDT breath) procedure are in the results section. CBC WITH DIFF STAT 10/13/2018 10:26 SOB (shortness of Results for this PM CDT breath) procedure are in the results section. COMP. METABOLIC PANEL STAT 10/13/2018 10:26 SOB (shortness of Results for this (76526) PM CDT breath) procedure are in the results section. TROPONIN I STAT 10/13/2018 10:26 SOB (shortness of Results for this PM CDT breath) procedure are in the results section. LIPASE STAT 10/13/2018 10:26 SOB (shortness of Results for this PM CDT breath) procedure are in the results section. EKG-12 LEAD Routine 10/13/2018 10:18 PM CDT CONSENT/REFUSAL FOR Routine 10/13/2018 9:32 DIAGNOSIS AND PM CDT TREATMENT documented in this encounter Results URINALYSIS (10/13/2018 11:24 PM CDT) APPEARANCE Clear Clear [facility] COLOR Yellow Yellow [facility] PH 8.5 (A) 4.8 - 8.0 [facility] SP GRAVITY 1.010 1.003 - 1.030 [facility] GLU U QUAL Negative Negative [facility] BLOOD Negative Negative [facility] KETONES Negative Negative [facility] PROTEIN Negative Negative [facility] UROBILIN 0.2 mg/dL 0-1.0 mg/dL [facility] BILIRUBIN Negative Negative [facility] NITRITE Negative Negative [facility] LEUK JEAN Negative Negative [facility] RBC/HPF 1 0 - 3 HPF [facility] WBC/HPF 1 0 - 5 HPF [facility] BACTERIA Few (A) Negative [facility] SQ EPITH 2 HPF [facility] Specimen Urine - URINE, CLEAN CATCH Performing Organization Address City/State/Zipcode Phone Number [facility] CLIA: [id number], [address] [place] [address] XR CHEST 1 VW (10/13/2018 10:38 PM CDT) Specimen Impressions Performed At [facility] Mild stable cardiomegaly. Suspected left-sided small pleural effusion. Chai Mendoza MD., have reviewed this study and agree with the above report. Narrative Performed At * * * * * * * * ORIGINAL REPORT * * * * * * * * [facility]//[facility] EXAM: XR CHEST 1 VW HISTORY: SOB COMPARISON: Chest x-ray dated 09/21/2018. FINDINGS: The lungs are clear without a focal consolidation. Blunting of the left costophrenic sinus likely due to small pleural effusion. No pneumothorax.. The aorta is slightly tortuous and aortic arch is mildly calcified. The heart is slightly enlarged, unchanged. No acute osseous abnormality is identified. Procedure Note [facility], Radiant Results Inft User - 10/13/2018 11:15 PM CDT * * * * * * * * ORIGINAL REPORT * * * * * * * * EXAM: XR CHEST 1 VW HISTORY: SOB COMPARISON: Chest x-ray dated 09/21/2018. FINDINGS: The lungs are clear without a focal consolidation. Blunting of the left costophrenic sinus likely due to small pleural effusion. No pneumothorax.. The aorta is slightly tortuous and aortic arch is mildly calcified. The heart is slightly enlarged, unchanged. No acute osseous abnormality is identified. IMPRESSION Mild stable cardiomegaly. Suspected left-sided small pleural effusion. IRene MD., have reviewed this study and agree with the above report. Performing Organization Address City/State/Zipcode Phone Number [facility] CBC WITH DIFFERENTIAL (10/13/2018 10:26 PM CDT) WBC 7.49 4.30 - 11.10 [facility] 10*3/L [facility] RBC 4.53 3.93 - 5.25 [facility] 10*6/L [facility] HGB 12.1 11.6 - 15.0 [facility] g/dL [facility] HCT 39.5 35.7 - 45.2 % [facility] MCV 87.2 80.6 - 95.5 fL [facility] MCH 26.7 25.9 - 32.8 pg [facility] MCHC 30.6 (L) 31.6 - 35.1 [facility] g/dL [facility] RDW-SD 45.8 39.0 - 49.9 fL [facility] RDW-CV 14.4 12.0 - 15.5 % [facility] PLT 216 166 - 358 [facility] 10*3/L [facility] MPV 10.6 9.5 - 12.9 fL [facility] NRBC/100 WBC 0.0 0.0 - 10.0 /100 [facility] WBCs [facility] NRBC x10^3 <0.01 10*3/L [facility] GRAN MAT (NEUT) % 62.7 % [facility] IMM GRAN % 0.70 % [facility] LYMPH % 24.0 % [facility] MONO % 8.1 % [facility] EOS % 4.1 % [facility] BASO % 0.4 % [facility] GRAN MAT x10^3(ANC) 4.69 1.88 - 7.09 [facility] 10*3/uL [facility] IMM GRAN x10^3 0.05 0.00 - 0.06 [facility] 10*3/uL HOSPITAL [facility] LYMPH x10^3 1.80 1.32 - 3.29 [facility] 10*3/uL [facility] MONO x10^3 0.61 0.33 - 0.92 [facility] 10*3/uL [facility] EOS x10^3 0.31 0.03 - 0.39 [facility] 10*3/uL HOSPITAL LAB[facility]ORY BASO x10^3 0.03 0.01 - 0.07 [facility] 10*3/uL [facility] Specimen Blood - VENOUS Performing Organization Address City/State/Zipcode Phone Number [facility] CLIA: [id number], [address] [place] [address] LIPASE (10/13/2018 10:26 PM CDT) LIPASE 24 0 - 220 U/L [facility] Specimen Blood - VENOUS Performing Organization Address City/State/Zipcode Phone Number [facility] CLIA: [id number], [address] [place] [address] COMP. METABOLIC PANEL (65223) (10/13/2018 10:26 PM CDT) NA 140 135 - 145 [facility] mmol/L [facility] K 4.9 3.5 - 5.0 [facility] mmol/L [facility] CL 100 98 - 108 mmol/L [facility] CO2 TOTAL 31 23 - 31 mmol/L [facility] AGAP 9 2 - 16 [facility] BUN 11 7 - 23 mg/dL [facility] GLUCOSE 158 (H) 70 - 110 mg/dL [facility] CREATININE 0.54 0.50 - 1.04 [facility] mg/dL [facility] TOTAL BILI 0.5 0.1 - 1.1 mg/dL [facility] CALCIUM 8.9 8.6 - 10.6 [facility] mg/dL [facility] T PROTEIN 6.9 6.3 - 8.2 g/dL [facility] ALBUMIN 3.9 3.5 - 5.0 g/dL [facility] ALK PHOS 98 34 - 122 U/L [facility] ALT(SGPT) 12 9 - 51 U/L [facility] AST(SGOT) 35 13 - 40 U/L [facility] eGFR Calculation 109.8 mL/min/1.73m2 [facility] [place] eGFR Calculation 133.0 mL/min/1.73m2 [facility] ([facility]) [facility] Specimen Blood - VENOUS Narrative Performed At Association of Glomerular Filtration Rate (GFR) [facility] and Staging of Kidney Disease* + [...] abnormalities in imaging tests). Performing Organization Address [facility] Phone Number [facility] CLIA: [id number], [address] [place] [address] N-TERMINAL PRO-BNP (10/13/2018 10:26 PM CDT) NT-proBNP 249 <=450 pg/mL [facility] Specimen Blood - VENOUS Narrative Performed At [facility] has been reported to cause a negative [facility] bias, interpret results relative to patient's use of biotin. Performing Organization Address [facility] Phone Number [facility] CLIA: [id number], [address] [place] [address] TROPONIN I (10/13/2018 10:26 PM CDT) TROPONIN I <0.012 <=0.034 ng/mL [facility] Specimen Blood - VENOUS Narrative Performed At Equal or Less than 0.034 ng/ml---Normal [facility] Note: Cardiac troponin begins to rise 3-4 hours after the onset of ischemia. Repeat in 4-6 hours if the sample was drawn within 3-4 hours of the onset of the symptom and found normal. Between 0.035 and 0.120 ng/mL--- Borderline. Questionable myocardial injury or necrosis Note: Serial measurement may be necessary to confirm or exclude the diagnosis of myocardial injury or necrosis; Clinical correlation (symptoms, EKGs, imaging studies, and others) required; Repeat in 4-6 hours if clinically indicated. Equal or Higher than 0.121 ng/mL---Abnormal. Myocardial Injury or Necrosis Likely Biotin has been reported to cause a negative bias, interpret results relative to patient's use of biotin. Performing Organization Address [facility] Phone Number [facility] CLIA: [id number], [address] [place] [address] documented in this encounter Visit Diagnoses Diagnosis SOB (shortness of breath) - Primary Shortness of breath Chronic obstructive pulmonary disease, unspecified COPD type Lymphedema of both lower extremities Cellulitis of left lower extremity Cellulitis and abscess of leg, except foot Medication refill Issue of repeat prescriptions Insomnia, unspecified type documented in this encounter Administered Medications Medication Order MAR Action Action Date Dose Rate Site ipratropium-albuterol (DUONEB) 0.5 Given 10/13/2018 11:04 PM CDT 3 mL mg-3 mg(2.5 mg base)/3 mL nebulizer solution 3 mL 3 mL, Inhalation, QID, First dose on [place] 10/14/18 at 0800, Until Discontinued, Routine documented in this encounter Insurance Payer Benefit Plan / Subscriber ID Effective Dates Phone Address Type Group [facility] [place] [id number] 2018-Presen Medicare Adv PLUS PLUS t HMO CLASSIC/VALUE documented as of this encounter
--- OUTSIDE RECORDS SUMMARY | 2018-12-25 06:05 | XMS REPORT | Summary of Care ---
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 tablet magnesium oxide 420 mg Take 400 mg [...] as needed for extremity, unspecified Insomnia. laterality albuterol 2.5 mg /3 mL Inhale 3 mL every 1 Box 0 07/11/2018 Active (0.083 %) nebulizer 4 (four) hours as solutionIndications: needed for COPD exacerbation Wheezing or Shortness of Breath. benzonatate 200 mg Take 1 capsule by 21 capsule 0 07/22/2018 Active capsuleIndications: mouth 3 (three) Lymphedema of both times daily as lower extremities, needed for Cough. Hypoxia ALPRAZolam (XANAX) 0.5 Take 1 tablet by 42 tablet 0 09/25/2018 Active mg tabletIndications: mouth 3 (three) Anxiety times daily. bumetanide 1 mg Take 1 tablet by 60 tablet 1 09/25/2018 Active tabletIndications: mouth daily. Cellulitis of lower extremity, unspecified laterality levoFLOXacin 750 mg Take 1 tablet by 7 tablet 0 09/25/2018 Active tabletIndications: mouth every 24 Cellulitis of lower (twenty-four) extremity, unspecified hours. laterality carvedilol 12.5 mg Take 1 tablet by 60 tablet 1 09/25/2018 Active tabletIndications: mouth 2 (two) Coronary artery times daily. disease involving [place] coronary artery of [place] heart without angina pectoris insulin NPH and [...] of lower times daily. extremity, unspecified laterality documented as of this encounter (statuses as of 09/28/2018) Active Problems Problem Noted Date Bilateral lower leg cellulitis 09/21/2018 Coronary artery disease involving [place] coronary artery of [place] heart 06/01 without angina pectoris Acute on chronic diastolic congestive heart failure 06/01/2018 Morbid obesity 06/01/2018 Type 2 diabetes mellitus without complication, without long-term current 06/01 use of insulin Essential hypertension 06/01/2018 Lower extremity pain 06/01/2018 Cellulitis 05/31/2018 Bilateral leg edema 05/31/2018 documented as of this encounter (statuses as of 09/28/2018) Social History Tobacco Use Types Packs/Day Years [...] Phone Address Type Group Dates [employer] [id number] 2013-Pres Medicare Adv MEDICARE NON MEDICARE NON ent PPO CONTRACTED CONTRACTED [employer] [place] [id number] 2018-Prese Medicare Adv PLUS PLUS nt HMO CLASSIC/VALUE documented as of this encounter
[2018-12-25] MEDS ORDERED: ALBUTEROL 2.5 MG/3 ML NEB SOL ONE (06:37)
[2018-12-25] MEDS ORDERED: IPRATROPIUM BROM 0.5MG/2.5ML ONE (06:37)
[2018-12-25] MEDS ORDERED: ALPRAZOLAM 0.5 MG TABLET ONE (07:27)
[2018-12-25 08:03] LABS: Protime INR 1.17
[2018-12-25 08:04] LABS: Absolute Lymphocytes (CBC) 2.2 K/uL (0.7-4.9); Basophils % 0.8 % (0-1.3); Hematocrit 40.7 % (36.0-45.0); Lymphocytes % 26.5 % (15.3-44.8); MPV 9.9 fL (7.6-11.3); RBC Red Blood Cell Count 4.79 M/uL (3.86-4.86)
[2018-12-25 08:08] LABS: ALT/SGPT 20 U/L (12-78); AST/SGOT 10 U/L (15-37); Albumin 3.3 g/dL (3.4-5.0); Alkaline Phosphatase 105 U/L (45-117); BUN Blood Urea Nitrogen 28 mg/dL (7-18); Bicarbonate 32 mmol/L (21-32); Bilirubin Direct 0.2 mg/dL (0-0.2); Bilirubin Total 0.6 mg/dL (0.2-1.0); Glucose Level 397 mg/dL (74-106); Magnesium 1.9 mg/dL (1.8-2.4); NT PRO-BNP 268 pg/mL (<450); Potassium 3.5 mmol/L (3.5-5.1); Sodium Level 131 mmol/L (136-145); Troponin (Emerg Dept Use Only) < 0.02 ng/mL (0.0-0.045)
--- NOTE | 2018-12-25 08:33 | ER ---
Nurse's Notes [facility] Name: Francine Lemons Age: 78 yrs Sex: Female : 1940 Arrival Date: 12/25/2018 Time: 06:00 Bed 6 Private MD: Diagnosis: Chronic obstructive pulmonary disease, unspecified Presentation: 12/25 06:09 Presenting complaint: Patient states: cough and not feeling well for several days. aa1 States she is currently on antibiotics she was prescribed at [facility] for the same thing. Transition of care: patient was not received from another setting of care. Onset of symptoms was December 21, 2018. Risk Assessment: Do you want to hurt yourself or someone else?. Initial Sepsis Screen: Does the patient meet any 2 criteria? No. Patient's initial sepsis screen is negative. Does the patient have a suspected source of infection? Yes: Productive cough/pneumonia. Care prior to arrival: None. 06:09 Method Of Arrival: Wheelchair aa1 06:09 Acuity: AURELIO 3 aa1 Triage Assessment: 06:11 General: Appears in no apparent distress. comfortable, Behavior is calm, cooperative, aa1 appropriate for age. 06:23 Respiratory: Reports cough that is. ak1 06:52 Respiratory: Onset: The symptoms/episode began/occurred at an unknown time. the patient ak1 has mild shortness of breath. 06:52 Pain: Denies pain. EENT: No signs and/or symptoms were reported regarding the EENT ak1 system. Neuro: Level of Consciousness is awake, alert, obeys commands, Oriented to person, place, time, situation, Moves all extremities. Full function Speech is normal. GI: Abdomen is round non-distended, obese. : No signs and/or symptoms were reported regarding the genitourinary system. Derm: Skin temperature is warm. Historical: - Allergies: 06:11 Azithromycin; aa1 06:11 Iodine; aa1 06:11 Prednisone; aa1 - PMHx: 06:11 ADD/ADHD; Anxiety; CHF; Chronic pain; COPD; Diabetes - IDDM; High Cholesterol; aa1 Hypertension; lymphedema; stasis neuropathy; - PSHx: 06:11 Appendectomy; Hysterectomy; Tonsillectomy; aa1 - Immunization history:: Pneumococcal vaccine is up to date, Flu vaccine is up to date. - Social history:: Smoking status: Patient/guardian denies using tobacco. - Ebola Screening: : Patient denies exposure to infectious person Patient denies travel to an Ebola-affected area in the 21 days before illness onset. Screenin:23 Abuse screen: Denies threats or abuse. Denies injuries from another. Nutritional ak1 screening: No deficits noted. Tuberculosis screening: No symptoms or risk factors identified. Fall Risk None identified. Assessment: 06:51 General: Appears in no apparent distress. Behavior is calm, anxious. Cardiovascular: ak1 Rhythm is sinus bradycardia. Respiratory: Airway is patent Respiratory effort is unlabored. 06:52 Respiratory: Breath sounds with wheezes. ak1 07:22 Reassessment: Patient appears in no apparent distress at this time. Reassessment: pt la1 extremely anxious regarding venipuncture, coached through with breathing techniques. Requesting xanax for anxiety. General: Appears in no apparent distress. Behavior is anxious. Cardiovascular: Capillary refill < 3 seconds Patient's skin is warm and dry. Respiratory: Airway is patent Respiratory effort is even, unlabored, Vital Signs: 06:11 BP 120 / 58; Pulse 72; Resp 20; Temp 97.9; Pulse Ox 97% on R/A; Weight 106.59 kg; aa1 Height 5 ft. 3 in. (160.02 cm); Pain 8/10; 08:17 BP 110 / 53; Pulse 74; Resp 16; Pulse Ox 98% on R/A; la1 08:59 BP 117 / 74; Pulse 61; Resp 16; Pulse Ox 98% on R/A; la1 06:11 Body Mass Index 41.63 (106.59 kg, 160.02 cm) aa1 ED Course: 06:00 Patient arrived in ED. ds1 06:03 Rudi Ralph NP is PHCP. pm1 06:03 Dani Springer MD is Attending Physician. pm1 06:10 Triage completed. aa1 06:11 Arm band placed on left wrist. Patient placed in an exam room. aa1 06:23 Anyi Benton, RN is Primary Nurse. ak1 06:23 Patient has correct armband on for positive identification. Bed in low position. Call ak1 light in reach. Side rails up X 1. Adult w/ patient. Pulse ox on. NIBP on. 06:23 No provider procedures requiring assistance completed. ak1 06:51 EKG done, by ED staff, reviewed by Dani Springer MD Flu and/or RSV swab sent to lab. ak1 07:24 Accessed peripheral vein via ultrasound, utilizing dynamic ultrasound technique using la1 18G Sureflo IV catheter. 07:49 X-ray completed. Patient tolerated procedure well. Patient moved to CT via wheelchair. sw Patient moved back from radiology. 07:52 Chest Pa And Lat (2 Views) XRAY In Process Unspecified. EDMS 08:59 IV discontinued, intact, bleeding controlled, No redness/swelling at site. Pressure la1 dressing applied. Administered Medications: 06:50 Drug: Albuterol - atroVENT (3:1) (2.5 mg - 0.5 mg) 3 ml Route: Nebulizer; ak1 07:22 Follow up: Response: No adverse reaction la1 07:27 Drug: XANax Tablet 0.5 mg Route: PO; la1 Outcome: 08:33 Discharge ordered by MD. pm1 08:58 Discharged to home ambulatory. la1 08:58 Condition: good 08:58 Discharge instructions given to patient, family, Instructed on discharge instructions, follow up and referral plans. medication usage, Demonstrated understanding of instructions, follow-up care, medications, Prescriptions given X 3. 09:00 Patient left the ED. la1 Signatures: Dispatcher [employer] EDMS Mery Marti RN RN aa1 wTila Henry dsBharat Cook RN RN la1 Anyi Benton RN RN ak1 Tomasa Colon Patrick, NP MEDICAL TECHNOLOGIST pm1
--- NOTE | 2018-12-25 08:33 | EDPHYS ---
Physician Documentation [facility] Name: Francine Lemons Age: 78 yrs Sex: Female : 1940 Arrival Date: 12/25/2018 Time: 06:00 Bed 6 Private MD: ED Physician Dani Springer HPI: 12/25 06:49 This 78 yrs old Female presents to ER via Wheelchair with complaints of pm1 Cough, Shortness Of Breath. 06:49 The patient or guardian reports cough, with no sputum. Onset: The symptoms/episode pm1 began/occurred 1 week(s) ago. Severity of symptoms: in the emergency department the symptoms are actually worse. Modifying factors: The symptoms are alleviated by nothing, the symptoms are aggravated by nothing. Associated signs and symptoms: Pertinent negatives: chest pain, fever, nausea, rhinorrhea, sore throat, vomiting. Discharged 2 days ago from [facility] for the same complaints of cough and congestion. Patient with a diagnosis of COPD and she does not take any inhalers at home. Was prescribed Keflex for cellulitis on her lymphedema. Historical: - Allergies: 06:11 Azithromycin; aa1 06:11 Iodine; aa1 06:11 Prednisone; aa1 - PMHx: 06:11 ADD/ADHD; Anxiety; CHF; Chronic pain; COPD; Diabetes - IDDM; High Cholesterol; aa1 Hypertension; lymphedema; stasis neuropathy; - PSHx: 06:11 Appendectomy; Hysterectomy; Tonsillectomy; aa1 - Immunization history:: Pneumococcal vaccine is up to date, Flu vaccine is up to date. - Social history:: Smoking status: Patient/guardian denies using tobacco. - Ebola Screening: : Patient denies exposure to infectious person Patient denies travel to an Ebola-affected area in the 21 days before illness onset. ROS: 06:49 Constitutional: Negative for fever, chills, and weight loss, Eyes: Negative for injury, pm1 pain, redness, and discharge, ENT: Negative for injury, pain, and discharge, Neck: Negative for injury, pain, and swelling, Cardiovascular: Negative for chest pain, palpitations, and edema. 06:49 Abdomen/GI: Negative for abdominal pain, nausea, vomiting, diarrhea, and constipation, Back: Negative for injury and pain, : Negative for injury, bleeding, discharge, and swelling, MS/Extremity: Negative for injury and deformity, Skin: Negative for injury, rash, and discoloration, Neuro: Negative for headache, weakness, numbness, tingling, and seizure. 06:49 Respiratory: Positive for cough, shortness of breath, Negative for sputum production, wheezing. Exam: 06:49 Constitutional: This is a well developed, well nourished patient who is awake, alert, pm1 and in no acute distress. Head/Face: Normocephalic, atraumatic. Neck: Trachea midline, no thyromegaly or masses palpated, and no cervical lymphadenopathy. Supple, full range of motion without nuchal rigidity, or vertebral point tenderness. No Meningismus. Chest/axilla: Normal chest wall appearance and motion. Nontender with no deformity. No lesions are appreciated. Cardiovascular: Regular rate and rhythm with a normal S1 and S2. No gallops, murmurs, or rubs. Normal PMI, no JVD. No pulse deficits. Respiratory: Lungs have equal breath sounds bilaterally, clear to auscultation and percussion. No rales, rhonchi or wheezes noted. No increased work of breathing, no retractions or nasal flaring. Abdomen/GI: Soft, non-tender, with normal bowel sounds. No distension or tympany. No guarding or rebound. No evidence of tenderness throughout. Back: No spinal tenderness. No costovertebral tenderness. Full range of motion. Skin: Warm, dry with normal turgor. Normal color with no rashes, no lesions, and no evidence of cellulitis. MS/ Extremity: Pulses equal, no cyanosis. Neurovascular intact. Full, normal range of motion. 06:49 Neuro: Orientation: is normal, Motor: is normal, moves all fours. Vital Signs: 06:11 BP 120 / 58; Pulse 72; Resp 20; Temp 97.9; Pulse Ox 97% on R/A; Weight 106.59 kg; aa1 Height 5 ft. 3 in. (160.02 cm); Pain 8/10; 08:17 BP 110 / 53; Pulse 74; Resp 16; Pulse Ox 98% on R/A; la1 08:59 BP 117 / 74; Pulse 61; Resp 16; Pulse Ox 98% on R/A; la1 06:11 Body Mass Index 41.63 (106.59 kg, 160.02 cm) aa1 MDM: 06:04 Patient medically screened. pm1 08:32 Data reviewed: vital signs. Data interpreted: Pulse oximetry: on room air is 98 %. pm1 Interpretation: normal. Counseling: I had a detailed discussion with the patient and/or guardian regarding: the historical points, exam findings, and any diagnostic results supporting the discharge/admit diagnosis, lab results, radiology results, the need for outpatient follow up, to return to the emergency department if symptoms worsen or persist or if there are any questions or concerns that arise at home. 12/25 06:31 Order name: Flu; Complete Time: 07:21 pm1 12/25 06:34 Order name: Basic Metabolic Panel; Complete Time: 08:08 pm1 12/25 06:34 Order name: CBC with Diff; Complete Time: 08:31 pm1 12/25 06:34 Order name: LFT's; Complete Time: 08:08 pm1 12/25 06:34 Order name: Magnesium; Complete Time: 08:08 pm1 12/25 06:34 Order name: NT PRO-BNP; Complete Time: 08:08 pm1 12/25 06:31 Order name: Chest Pa And Lat (2 Views) XRAY pm1 12/25 06:34 Order name: PT-INR; Complete Time: 08:31 pm1 12/25 06:34 Order name: Troponin (emerg Dept Use Only); Complete Time: 08:08 pm1 12/25 06:34 Order name: EKG; Complete Time: 06:35 pm1 12/25 06:34 Order name: Cardiac monitoring; Complete Time: 06:50 pm1 12/25 06:34 Order name: EKG - Nurse/Tech; Complete Time: 06:50 pm1 12/25 06:34 Order name: IV Saline Lock; Complete Time: 07:22 pm1 12/25 06:34 Order name: Labs collected and sent; Complete Time: 07:22 pm1 12/25 06:34 Order name: O2 Per Protocol; Complete Time: 06:34 pm1 12/25 06:34 Order name: O2 Sat Monitoring; Complete Time: 06:34 pm1 EC:08 Rate is 66 beats/min. Rhythm is regular, Normal Sinus Rhythm with 1st degree heart pm1 block. QRS [place] is Normal. No Q waves. T waves are Normal. No ST changes noted. Clinical impression: 1st degree heart block. No change from previous ECG on March 25, 2018. Administered Medications: 06:50 Drug: Albuterol - atroVENT (3:1) (2.5 mg - 0.5 mg) 3 ml Route: Nebulizer; ak1 07:22 Follow up: Response: No adverse reaction la1 07:27 Drug: XANax Tablet 0.5 mg Route: PO; la1 Disposition: 12/25/18 08:33 Discharged to Home. Impression: Chronic obstructive pulmonary disease, unspecified. - Condition is Stable. - Discharge Instructions: Chronic Obstructive Pulmonary Disease, How to Use an Inhaler. - Prescriptions for Albuterol Sulfate 90 mcg/actuation - inhale 1-2 puff by INHALATION route every 4-6 hours; 1 Inhaler. Guaifenesin AC 10- 100 mg/5 mL Oral Liquid - take 10 milliliter by ORAL route every 4 hours As needed; 240 milliliter. Albuterol Sulfate 2.5 mg /3 mL (0.083 %) Inhalation Solution for Nebulization - inhale 1 unit by NEBULIZATION route every 8 hours As needed; 1 box. - Medication Reconciliation Form, Thank You Letter, Antibiotic Education, Prescription Opioid Use form. - Follow up: Emergency Department; When: As needed; Reason: Worsening of condition. Follow up: Private Physician; When: 2 - 3 days; Reason: Recheck today's complaints, Continuance of care, Re-evaluation by your physician. - Problem is new. - Symptoms have improved. Addendum: 12/27/2018 21:52 Co-signature as Attending Physician, Dani Springer MD I agree with the assessment and t w4 plan of care. Signatures: Dispatcher [employer] EDMS Mery Marti RN RN aa1 Bharat Carey RN RN la1 Anyi Benton RN RN ak1 Rudi Ralph, SECURITY SOLUTIONS ARCHITECT SECURITY SOLUTIONS ARCHITECT pm1 Dani Springer MD MD tw4 Corrections: (The following items were deleted from the chart) 12/25 09:00 08:33 12/25/2018 08:33 Discharged to Home. Impression: Chronic obstructive pulmonary la1 disease, unspecified. Condition is Stable. Forms are Medication Reconciliation Form, Thank You Letter, Antibiotic Education, Prescription Opioid Use. Follow up: Emergency Department; When: As needed; Reason: Worsening of condition. Follow up: Private Physician; When: 2 - 3 days; Reason: Recheck today's complaints, Continuance of care, Re-evaluation by your physician. Problem is new. Symptoms have improved. pm1
--- NOTE | 2018-12-25 11:10 | RAD REPORT ---
EXAM DESCRIPTION: RAD - Chest Pa And Lat (2 Views) - 12/25/2018 7:53 am CLINICAL HISTORY: Cough;Congestion Chest pain. COMPARISON: Chest Single View dated 09/03/2018; Chest Pa And Lat (2 Views) dated 03/25/2018; Chest Pa And Lat (2 Views) dated 03/03/2018; Chest Pa And Lat (2 Views) dated 02/06/2018 FINDINGS: The interstitial lung markings are prominent bilaterally suggesting interstitial pneumonia . Small left retrocardiac opacity is present in the left base which could indicate superimposed early pneumonia. The heart is normal in size. No displaced fractures.
[2018-12-25 14:32] VITALS: TEMP 97.9
[2018-12-25 14:49] VITALS: BP 117/74; O2SAT 98
--- NOTE | 2018-12-25 17:22 | EKG ---
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
== END 2018-12-25 09:00 | disposition home or self-care (01) ==
LOC: ER 05:59
DX: J44.9 Chronic obstructive pulmonary disease, unspecified (principal); I10 Essential (primary) hypertension; Z88.1 Allergy status to other antibiotic agents; Z88.8 Allergy status to other drugs, medicaments and biological substances; Z91.048 Other nonmedicinal substance allergy status
CPT/HCPCS: 36415; 71046; 80048; 80076; 83735; 83880; 84484; 85025; 85610; 87804; 93005; 94640; 99285

== ENCOUNTER 2019-07-16 18:47 | Emergency (ER) | payer OTHER ==
--- OUTSIDE RECORDS SUMMARY | 2019-07-16 18:50 | XMS REPORT | Clinical Summary ---
:1940 Author Organization [facility] Address [address] [place] [address] Care Team Providers Name Role Phone MD Jamel Primary Care Provider Allergies Active Allergy Reactions Severity Noted Date Comments Iodine Other (See Comments), GI 05/31/2018 [place], vomiting Intolerance Prednisone Other (See Comments) 04/08/2019 Blood s ugar spikes Medications Medication Sig Dispensed Refills Start Date End Date Status potassium chloride Take by mouth 3 0 Active (KAYCIEL) 20 mEq/15 mL (three) times a solution day. metOLazone (ZAROXOLYN) Take 5 mg by 0 Active 5 MG tablet mouth. Thursday and thursday BUMETanide (BUMEX) 2 MG Take 2 mg by 0 Active tablet mouth 2 (two) times a day. spironolactone Take 25 mg by 0 A ctive (ALDACTONE) 25 MG mouth 2 (two) tablet times a day. ALPRAZolam (XANAX) 0.5 Take 0.5 mg by 0 Active MG tablet mouth 3 (three) times a day. HYDROcodone-acetaminoph Take 1 tablet by 0 Active en (NORCO) 7.5-325 mg mouth every 8 per tabletIndications: (eight) hours as acute pain needed for moderate pain .acute pain. insulin asp prt-insulin Inject 70 Units 0 Active ASPART (NovoLOG 70/30) under the skin 2 100 unit/mL (70-30) (two) times a day injection before meals. magnesium oxide Take 400 mg by 0 Active (MAG-OX) 400 mg (241.3 mouth daily. mg magnesium) tablet albuterol (PROAIR HFA) Inhale 2 puffs 0 Active 90 mcg/actuation daily as needed inhaler for wheezing. Active Problems Problem Noted Date Cellulitis of left lower leg 04/10/2019 Cellulitis of lower extremity 04/08/2019 Encounters Date Type Specialty Care Team Description 04/08/2019 - Hospital Encounter General Internal Ross, Daniel Cellu litis of lower 04/15/2019 Medicine Jak Medina MD extremity, Mario Romoified MD Rigoberto laterality (Primary [place], Jacoby Dx) Mark Yoder MD after 07/15/2018 Social History Tobacco Use Types Packs/Day Years Used Date Former Smoker Smokeless Tobacco: Never Used Alcohol Use Drinks/Week oz/Week Comments Never Alcohol Habits Answer Date Recorded How often do you have a drink containing alcohol? Never 04/08/2019 How many drinks containing alcohol do you have on a typical Not asked day when you are drinking? How often do you have six or more drinks on one occasion? No t asked Sex Assigned at Date Recorded Not on file Job Start Date Occupation Industry Not on file Not on file Not on file Travel History Travel Start Travel End No recent travel history available. Last Filed Vital Signs Vital Sign Reading Time Taken Comments Blood Pressure 129/59 04/15/2019 11:32 AM [employer] Pulse 77 04/15/2019 11:32 AM [employer] Temperature 36.2 C (97.1 F) 04/15/2019 11:32 AM [employer] Respiratory Rate 18 04/15/2019 11:32 AM [employer] Oxygen Saturation 94% 04/15/2019 11:32 AM [employer] Inhaled Oxygen Concentration - - Weight 109 kg (241 lb) 04/08/2019 2:16 PM [employer] Height 160 cm (5' 3") 04/08/2019 2:16 PM [employer] Body Mass Index 42.69 04/08/2019 2:16 PM [employer] Plan of Treatment Health Maintenance Due Date Last Done Comments DIABETIC RETINAL EYE EXAM 1940 DIABETIC FOOT EXAM 1950 URINE MICROALBUMIN 1952 SHINGLES VACCINES (#1) 1992 65+ PNEUMOCOCCAL VACCINE (1 of 2 - PCV13) 07/13/2007 INFLUENZA VACCINE 09/10/2019 Procedures Procedure Name Priority Date/Time Associated Comments Diagnosis POC GLUCOSE Routine 04/15/2019 2:29 Results for this PM [employer] procedure are i n the results section. POC GLUCOSE Routine 04/15/2019 11:30 Results for this AM [employer] procedure are i n the results section. POC GLUCOSE Routine 04/15/2019 8:14 Results for this AM [employer] procedure are i n the results section. POC GLUCOSE Routine 04/14/2019 5:24 Results for this PM [employer] procedure are i n the results section. POC GLUCOSE Routine 04/14/2019 11:56 Results for this AM [employer] procedure are i n the results section. POC GLUCOSE Routine 04/14/2019 8:10 Results for this AM [employer] procedure are i n the results section. ESTIMATED GFR Routine 04/14/2019 3:15 Results fo r this AM [employer] procedure are i n the results section. COMPREHENSIVE METABOLIC Routine 04/14/2019 3:15 Results for this PANEL AM [employer] procedure are i n the results section. HC COMPLETE BLD COUNT Routine 04/14/2019 3:15 Re sults for this W/AUTO DIFF AM [employer] procedure are i n the results section. VANCOMYCIN LEVEL, Routine 04/14/2019 3:15 Result s for this RANDOM AM [employer] procedure are i n the results section. POC GLUCOSE Routine 04/13/2019 4:00 Results for this PM [employer] procedure are i n the results section. POC GLUCOSE Routine 04/13/2019 11:30 Results for this AM [employer] procedure are i n the results section. POC GLUCOSE Routine 04/13/2019 8:06 Results for this AM [employer] procedure are i n the results section. ESTIMATED GFR Routine 04/13/2019 4:00 Results fo r this AM [employer] procedure are i n the results section. BASIC METABOLIC PANEL Routine 04/13/2019 4:00 Re sults for this AM [employer] procedure are i n the results section. HC COMPLETE BLD COUNT Routine 04/13/2019 4:00 Re sults for this W/AUTO DIFF AM [employer] procedure are i n the results section. POC GLUCOSE Routine 04/13/2019 12:40 Results for this AM [employer] procedure are i n the results section. POC GLUCOSE Routine 04/12/2019 9:07 Results for this PM [employer] procedure are i n the results section. POC GLUCOSE Routine 04/12/2019 4:57 Results for this PM [employer] procedure are i n the results section. IR PICC REPLACEMENT Routine 04/12/2019 3:31 Resu lts for this PM [employer] procedure are i n the results section. POC GLUCOSE Routine 04/12/2019 1:00 Results for this PM [employer] procedure are i n the results section. HC CATH DUAL LUMEN PICC Routine 04/12/2019 12:13 Results for this PM [employer] procedure are i n the results section. HC CVL PICC INSERT 5 Routine 04/12/2019 12:13 Res ults for this YRS OR > W/RS&I AND IMG PM [employer] proc edure are in GUID the results section. POC GLUCOSE Routine 04/12/2019 7:40 Results for this AM [employer] procedure are i n the results section. ESTIMATED GFR Routine 04/12/2019 4:51 Results fo r this AM [employer] procedure are i n the results section. COMPREHENSIVE METABOLIC Routine 04/12/2019 4:51 Results for this PANEL AM [employer] procedure are i n the results section. CBC WITH PLATELET AND Routine 04/12/2019 4:51 Re sults for this DIFFERENTIAL AM [employer] procedure are i n the results section. VANCOMYCIN LEVEL, Timed 04/11/2019 8:31 Result s for this TROUGH PM [employer] procedure are i n the results section. POC GLUCOSE Routine 04/11/2019 3:46 Results for this PM [employer] procedure are i n the results section. CT LOWER EXTREMITY WO Routine 04/11/2019 1:17 Re sults for this CONTRAST LEFT PM [employer] procedure are in the results section. POC GLUCOSE Routine 04/11/2019 11:34 Results for this AM [employer] procedure are i n the results section. VANCOMYCIN LEVEL, Routine 04/11/2019 12:45 Result s for this RANDOM AM [employer] procedure are i n the results section. POC GLUCOSE Routine 04/10/2019 5:27 Results for this PM [employer] procedure are i n the results section. US DUPLEX ARTERIAL Routine 04/10/2019 1:13 Resul ts for this LOWER EXTREMITY PM [employer] procedure ar e in BILATERAL the results section. POC GLUCOSE Routine 04/10/2019 11:41 Results for this AM [employer] procedure are i n the results section. XR TIBIA FIBULA 2 VW Routine 04/10/2019 10:51 Res ults for this RIGHT AM [employer] procedure are i n the results section. XR TIBIA FIBULA 2 VW Routine 04/10/2019 10:51 Res ults for this LEFT AM [employer] procedure are i n the results section. TTE COMPLETE, WO Routine 04/10/2019 8:20 Results for this CONTRAST, W DOPPLER AM [employer] procedur e are in ([id number]) the results section. POC GLUCOSE Routine 04/10/2019 7:52 Results for this AM [employer] procedure are i n the results section. ESTIMATED GFR Routine 04/10/2019 4:50 Results fo r this AM [employer] procedure are i n the results section. HC COMPLETE BLD COUNT Routine 04/10/2019 4:50 Re sults for this W/AUTO DIFF AM [employer] procedure are i n the results section. BASIC METABOLIC PANEL Routine 04/10/2019 4:50 Re sults for this AM [employer] procedure are i n the results section. POC GLUCOSE Routine 04/09/2019 4:15 Results for this PM [employer] procedure are i n the results section. POC GLUCOSE Routine 04/09/2019 3:07 Results for this PM [employer] procedure are i n the results section. POC GLUCOSE Routine 04/09/2019 2:50 Results for this PM [employer] procedure are i n the results section. POC GLUCOSE Routine 04/09/2019 1:52 Results for this PM [employer] procedure are i n the results section. URINE CULTURE Routine 04/09/2019 1:24 Results fo r this PM [employer] procedure are i n the results section. POC GLUCOSE Routine 04/09/2019 11:48 Results for this AM [employer] procedure are i n the results section. CONSULT TO OSTOMY CARE Routine 04/09/2019 6:32 NURSE AM [employer] URINE CULTURE SCREEN Routine 04/09/2019 4:30 AM [employer] LACTIC ACID LEVEL Routine 04/09/2019 2:45 Result s for this AM [employer] procedure are i n the results section. LACTIC ACID LEVEL, Timed 04/08/2019 10:15 Resul ts for this SEPSIS - NOW AND REPEAT PM [employer] proc edure are in 2X EVERY 3 HOURS the results section. HC COMPLETE BLD COUNT STAT 04/08/2019 9:33 Re sults for this W/AUTO DIFF PM [employer] procedure are i n the results section. US DUPLEX VENOUS LOWER STAT 04/08/2019 6:48 R esults for this EXTREMITY BILATERAL PM [employer] procedur e are in the results section. VANCOMYCIN LEVEL, Timed 04/08/2019 5:23 Result s for this TROUGH PM [employer] procedure are i n the results section. ESTIMATED GFR STAT 04/08/2019 5:23 Results fo r this PM [employer] procedure are i n the results section. TROPONIN Routine 04/08/2019 5:23 Results for this PM [employer] procedure are i n the results section. B NATRIURETIC PEPTIDE STAT 04/08/2019 5:23 Re sults for this PM [employer] procedure are i n the results section. LACTIC ACID LEVEL, Timed 04/08/2019 5:23 Resul ts for this SEPSIS - NOW AND REPEAT PM [employer] proc edure are in 2X EVERY 3 HOURS the results section. CREATINE KINASE, TOTAL STAT 04/08/2019 5:23 R esults for this (CPK) PM [employer] procedure are i n the results section. LIPASE LEVEL STAT 04/08/2019 5:23 Results for this PM [employer] procedure are i n the results section. PARTIAL THROMBOPLASTIN STAT 04/08/2019 5:23 R esults for this TIME (PTT) PM [employer] procedure are i n the results section. PROTHROMBIN TIME WITH STAT 04/08/2019 5:23 Re sults for this INR PM [employer] procedure are i n the results section. COMPREHENSIVE METABOLIC STAT 04/08/2019 5:23 Results for this PANEL PM [employer] procedure are i n the results section. BLOOD CULTURE, AEROBIC Routine 04/08/2019 5:23 R esults for this & ANAEROBIC PM [employer] procedure are i n the results section. BLOOD CULTURE, AEROBIC Routine 04/08/2019 5:20 R esults for this & ANAEROBIC PM [employer] procedure are i n the results section. after 07/15/2018 Results POC glucose (04/15/2019 2:29 PM [employer])Only the most recent of24 resultswithin the time period is included. Pathologist Sig nature POC glucose 218 (H) 65 - 99 mg/dL [facility] Comment: [facility] Account Assistant Name: Lizette Ang Device ID: [id number] Chartable: RN Notified Specimen Performing Organization Address City/State/Zipcode Phone Number [facility] DEPARTMENT OF PATHOLOGY [address] [facility] [address] AND GENOMIC MEDICINE [facility] [address] [facility] [place] [address] HOSPITAL Estimated GFR (04/14/2019 3:15 AM [employer])Only the most recent of5 resultswithin the time period is included. Pathologist [facility] Department Estimated GFR 80 mL/min/1.73 EYAD DUNN Comment: m2 [facility] Catergory Units Interpretation HOS PITAL G1 >=90 Normal or high G2 60-89 Mildly decreased G3a 45-59 Mildly to moderately decreas ed G3b 30-44 Moderately to severely decre ased G4 15-29 Severely decreased G5 <15 Kidney failure The eGFR was calculated using the Chronic Kidney Disea se Epidemiology Collaboration (CKD-EPI) equation. Interpretation is based on recommendations of the National Kidney Foundation-Kidney Disease Outcomes Dillan lity Initiative (NKF-KDOQI) published in 2014. Specimen Plasma specimen Performing Organization Address City/State/Zipcode Phone Number [facility] DEPARTMENT OF PATHOLOGY [address] [facility] [address] [facility] [id number] [place] [id number] [place] [address] CBC with platelet and differential (04/14/2019 3:15 AM [employer])Only the most recent of5 resultswithin the time period is included. WBC 9.3 4.5 - 11.0 k/uL [facility] RBC 4.29 4.20 - 5.50 [facility] m/uL [facility] HGB 11.6 (L) 12.0 - 16.0 [facility] g/dL [facility] HCT 36.0 (L) 37.0 - 47.0 % [facility] MCV 83.9 82.0 - 100.[address] [facility] MCH 27.0 27.0 - 34.[address] [facility] MCHC 32.2 31.0 - 37.0 [facility] g/dL [facility] RDW - SD 47.0 37.0 - 55.[address] [facility] MPV 10.5 6.9 - 11.[address] [facility] Platelet count 278 150 - 400 K/uL [facility] Nucleated RBC 0.00 /[address] [facility] Neutrophils 66.9 39.0 - 69.0 % [facility] Lymphocytes 18.3 (L) 25.0 - 45.0 % [facility] Monocytes 9.6 0.0 - 10.0 % [facility] Eosinophils 3.1 0.0 - 5.0 % [facility] Basophils 1.0 0.0 - 1.0 % [facility] Immature granulocytes 1.1 (H) 0.0 - 1.0 % [facility] Specimen Blood Performing Organization Address City/State/Zipcode Phone Number [facility] DEPARTMENT OF PATHOLOGY [address] [facility] [place] [address] AND GENOMIC [facility] [address] [facility] [place] [address] [facility] Vancomycin level, random (04/14/2019 3:15 AM [employer])Only the most recent of2 resultswithin the time period is included. Vancomycin, random 12.6 ug/mL [facility] Comment: [facility] Therapeutic Ranges: HOSPITAL Peak 30.0 - 40.0 ug/mL Trough 10.0 - 20.0 ug/mL Specimen Blood Performing Organization Address City/State/Zipcode Phone Number [facility] DEPARTMENT OF PATHOLOGY [address] [facility] [place] [address] AND GENOMIC MEDICINE [facility] [id number] [place] [address] HOSPITAL Comprehensive metabolic panel (04/14/2019 3:15 AM [employer])Only the most recent of3 resultswithin the time period is included. Pathologist Sig nature Sodium 132 (L) 135 - 148 mEq/L [facility] Potassium 4.0 3.5 - 5.0 mEq/L [facility] Chloride 91 (L) 98 - 112 mEq/L [facility] CO2 31 24 - 31 mEq/L [facility] Anion gap 10@ANIO 7 - 15 mEq/L [facility] BUN 23 8 - 23 mg/dL [facility] Creatinine 0.73 0.50 - 0.90 [facility] mg/dL [facility] Glucose 219 (H) 65 - 99 mg/dL [facility] Calcium 9.2 8.8 - 10.2 mg/dL [facility] Protein 6.8 6.3 - 8.3 g/dL [facility] Albumin 3.3 (L) 3.5 - 5.0 g/dL [facility] A/G ratio 0.9 0.7 - 3.[address] [facility] Alkaline phosphatase 104 35 - 104 U/L [facility] AST 19 10 - 35 U/L [facility] ALT 15 5 - 50 U/L [facility] Total bilirubin <0.2 0.2 - 1.2 mg/dL [facility] Specimen Plasma specimen Performing Organization Address City/State/Zipcode Phone Number [facility] DEPARTMENT OF PATHOLOGY [address] [facility] [place] [address] AND GENOMIC MEDICINE [facility] [address] [facility] X [id number] [place] [address] Basic metabolic panel (04/13/2019 4:00 AM [employer])Only the most recent of2 results within the time period is included. Pathologist Sig nature Sodium 135 135 - 148 mEq/L [facility] Potassium 3.9 3.5 - 5.0 mEq/L [facility] Chloride 93 (L) 98 - 112 mEq/L [facility] CO2 32 (H) 24 - 31 mEq/L [facility] Anion gap 10@ANIO 7 - 15 mEq/L [facility] BUN 19 8 - 23 mg/dL [facility] Creatinine 0.75 0.50 - 0.90 mg/dL [facility] Glucose 163 (H) 65 - 99 mg/dL [facility] Calcium 9.5 8.8 - 10.2 mg/dL [facility] Specimen Plasma specimen Performing Organization Address City/State/Zipcode Phone Number [facility] DEPARTMENT OF PATHOLOGY [address] [place] [address] AND GENOMIC MEDICINE [facility] [address] IR PICC Replacement (04/12/2019 3:31 PM [employer]) Specimen Narrative Performed At Procedure: [facility]IANT Left upper extremity PICC exchange Performing Radiologist Raghu Vines MD Assistants None Pre Procedure Diagnosis: Nonfunctioning left upper extremity PICC Post Procedure Diagnosis: Nonfunctioning left upper extremity PICC Indication: Nonfunctioning left upper extremity PICC Complications None IMPRESSION: 1.Successful [id number]-[id number] exchange of a left upper extremity PICC. PROCEDURE SUMMARY: 1.Spot radiograph of the chest following the procedure demonstrates the newly placed PICC to overlie the right-sided the media stinum with the distal tip in the superior vena cava. PROCEDURE DETAILS: Pre-procedure: Comparison studies: None Written and informed consent for the procedure (to inc lude risks, benefits and alternative therapy) and monitored consci ous sedation was obtained from the patient. Prophylactic antibiotics: None Preparation: The left upper extremity was prepared and draped using all elements of maximal sterile barrier technique includin g sterile gloves, sterile gown, catheter, mask, large sterile sheet, bianca rile ultrasound probe cover, hand hygiene and cutaneous antisepsis using chlorhexidine. Anesthesia/Sedation: Level of anesthesia: Local anesthesia Medications used: 1% lidocaine Procedural Technique: The existing left upper extremity single lumen PICC wa s evaluated x-ray and the distal tip was noted to course superiorly with in the right brachiocephalic vein. The PICC was then removed over 0 .018 inch wire and a new PICC was measured. A 4 Togolese dual lumen PICC was then advanced over the wire and positio christiano with the distal tip in the superior vena cava. Both ports flush ed and aspirated appropriately. The catheter was then secured to the corona bcutaneous tissues using 2-0 silk. The patient tolerated the procedure well . Contrast Contrast agent: None Radiation Dose: Kerma area product: 2.0 mGy Additional Details Additional description of procedure: Non e Equipment details: None Specimens removed: None Estimated blood loss (mL): Less than 10 [id number] Procedure Note Hm Interface, Radiology Results Incoming - 04/12/2019 10:11 PM [employer] Procedure: Left upper extremity PICC exchange Performing Radiologist Raghu Vines MD Assistants None Pre Procedure Diagnosis: Nonfunctioning left upper extremity PICC Post Procedure Diagnosis: Nonfunctioning left upper extremity PICC Indication: Nonfunctioning left upper extremity PICC Complications None IMPRESSION: 1.Successful ajxi-[id number]-[id number] exchange of a left upper extremity PICC. PROCEDURE SUMMARY: 1.Spot radiograph of the chest following the procedure demonstrates the newly placed PICC to overlie the right-sided the mediastinum with the distal tip in the superior vena cava. PROCEDURE DETAILS: Pre-procedure: Comparison studies: None Written and informed consent for the pro cedure (to include risks, benefits and alternative therapy) and monitored conscious sedation was obtained from the patient. Prophylactic antibiotics: None Preparation: The left upper extremity wa s prepared and draped using all elements of maximal sterile barrier technique including sterile gloves, sterile gown, catheter, mask, large sterile sheet, sterile ultrasound probe cover, hand hygiene and cutaneous antisepsis using chlorhexidine. Anesthesia/Sedation: Level of anesthesia: Local anesthesia Medications used: 1% lidocaine Procedural Technique: The existing left upper extremity single lumen PICC was evaluated x-ray and the distal tip was noted to course superiorly within the right brachiocephalic vein. The PICC was then removed over 0.018 inch wire and a new PICC was measured. A 4 Togolese dual lumen PICC was then advanced over the wi re and positioned with the distal tip in the superior vena cava. Both ports flushed and aspirated appropriately. The catheter was then secured to the subcutaneous tissues using 2-0 silk. The patient tolerated the procedure well . Contrast Contrast agent: None Radiation Dose: Kerma area product: 2.0 mGy Additional Details Additional description of procedure: Non e Equipment details: None Specimens removed: None Estimated blood loss (mL): Less than 10 [facility] Performing Organization Address City/State/[facility] Phone Number [facility] [address] [place] [address] PICC insertion (04/12/2019 12:13 PM [employer]) Narrative Performed At Daren Parekh RN 04/12/2019 1 2:18 PM PICC insertion Date/Time: 04/12/2019 12:14 PM Performed by: Daren Parekh RN Authorized by: Jacoby Sapp MD Consent: Consent obtained: Written Consent given by: Patient Risks discussed: arterial puncture, incorrect place ment, nerve damage, bleeding, infection, pneumothorax, super ficial thrombus and deep vein thrombus Alternatives discussed: No treatmen t and delayed treatment [place] protocol: Procedure explained and questions ans wered to patient or proxy's satisfaction: yes Relevant documents present and verifi ed: yes Test results available and properly l abeled: yes Imaging studies available: yes Required blood products, implants, de vices, and special equipment available: yes Site/side marked: yes Immediately prior to procedure, a flory e out was called: yes Patient identity confirmed: Verbally with patient , arm band, provided demographic data and hospital-assigned i dentification number Pre-procedure details: Hand hygiene: Hand hygiene performed prior to insertion Sterile barrier technique: All elemen ts of maximal sterile technique followed Skin preparation: ChloraPrep Skin preparation agent: Skin preparation agent comp letely dried prior to procedure Anesthesia (see MAR for exact dosages): Anesthesia method: Local infiltrati on Local anesthetic: Lidocaine 1% w/o epi Route of administration: Subcutaneo us Line Placement Details: Extremity Cirumference Upper (cm): 44 Extremity Circumference Site: 44 Patient position: Flat Vessel Size (mm): 6 Indication: Known buttermaker continuous churn IV ther apy Location: Left basilic Catheter size: 4 Fr Catheter to vein ratio: 23 Line Characteristics: Catheter Brand: BARD External Catheter Length (cm): 2 Internal Catheter Length (cm): 42 Total Catheter Length (cm): 44 Catheter Lot Number: [id number] Catheter Expiration Date: 0 Procedure Details: Ultrasound guidance: yes Sterile ultrasound techniques: Sterile gel and ster ile probe covers were used Number of attempts: 1 Number of PICC kits used during proce dure: 1 Purpose of procedure: PICC Placemen t Successful placement: No (Line remains in place. Pt reffered to IR for PICC Repositioning. ) PICC placed utlizing ultrasound-guided Modified Suzanne shankar Technique: Yes Dressing/Securement: Antimicrobial dressing dry and intact, antimicrobial dressing applied and kiki ter securement device Blood Loss Amount: Greater than 20 mL Post-Procedure Details: Post-procedure: Dressing applied Patient tolerance of procedure: Dawson erated well, no immediate complications Comments: Line placed in the Left Basilic, dur ing placement the catheter continually traveled transverse despite repositioning patient and catheter. Line secured in place. IR Cons ulted for repositioning. Spoke with Junito Nolan for PICC line repositioning in IR. Vancomycin level, trough (04/11/2019 8:31 PM [facility] [employer])Only the most recent of2 resultswithin the time period is included. Vancomycin, 10.4 10.0 - 20.0 [facility] trough Comment: ug/mL [facility] Therapeutic Ranges: HOSPITAL Peak 30.0 - 40.0 ug/mL Trough 10.0 - 20.0 ug/mL Specimen Blood Performing Organization Address City/State/Zipcode Phone Number [facility] DEPARTMENT OF PATHOLOGY [address] [facility] [place] [address] AND GENOMIC MEDICINE [facility] [address] [facility] [place] [address] [facility] [address] Lower Extremity Wo Contrast Left (04/11/2019 1:17 PM [facility] [employer]) Specimen Narrative Performed At EXAMINATION: CT LOWER EXTREMITY WO CON TRAST LEFT [facility] CLINICAL HISTORY: abscess TECHNIQUE: Multiple axial images of the left lower ext remity were obtained without contrast. CT imaging was performed wi th iterative reconstruction technique and/or automated exposure con trol to reduce radiation dose. COMPARISON: None. IMPRESSION: 1.Limited assessment for an organized fluid collection in the absence of contrast. Within the limitations of the examination, t here is marked skin thickening and extensive edema throughout the sub cutaneous fat of the leg extending from the level of the knee joint to the imaged portion of the ankle and hind foot. No discrete subcutaneous organized collection is identified. Diffe rential considerations would include lymphedema or cellulitis. 2.Edema is noted involving the superficial fascia circ umferentially of the leg without definite evidence of an organized intr amuscular collection. 3.No CT evidence of osteomyelitis of the tibia or fibula. 4.Other findings: No evidence of a tibial fibular frac ture. 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 Inserti onal Achilles enthesopathy. [id number] Procedure Note Interface, Radiology Results Incoming - 04/11/2019 2:23 PM [facility] [employer] EXAMINATION: CT LOWER EXTREMITY WO CONTRAST LEFT CLINICAL HISTORY: abscess TECHNIQUE: Multiple axial images of the left lower extremity were obtained without contrast. CT imaging was performed with iterative reconstruction technique and/or automated exposure control to reduce radiation dose. COMPARISON: None. IMPRESSION: 1.Limited assessment for an organized fl uid collection in the absence of contrast. Within the limitations of the examination, there is marked skin thickening and extensive edema throughout the subcutaneous fat of the leg extending from the level of the knee joint to the imaged portion of the ankle and hindfoot. No discrete subcutaneous organized collection is identified. Differential considerations would include lymphedema or cellulitis. 2.Edema is noted involving the superfici al fascia circumferentially of the leg without definite evidence of an organized intramuscular collection. 3.No CT evidence of osteomyelitis of the tibia or fibula. 4.Other findings: No evidence of a tibia l fibular fracture. 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 Insertional Achilles enthesopathy. [id number] Performing Organization Address City/State/Zipcode Phone Number [facility] [address] [place] [address] Us duplex arterial lower extremity (04/10/2019 1:13 PM [facility] [employer]) Specimen Narrative Performed At [facility] EXAM: US DUPLEX ARTERIAL LOWER EXTREMITY BILATERAL HISTORY: Claudication assess for revascularization, Diminished pulses claudication arm TECHNIQUE: Real-time as well as pulsed and color Doppl er evaluation of bilateral common femoral, femoral, popliteal, posterio r tibial, anterior tibial, and dorsalis pedis arteries are evaluated. The examination includes a full duplex Doppler scan of [facility] blood vessels (real-time P mode grayscale, Doppler spe ctral analysis, and Doppler color flow imaging). IMPRESSION: 1.Questionable stenosis within the left distal poplite al artery or proximal anterior tibial/posterior tibial artery and w ithin the proximal right posterior tibial artery. These findings can be b oylanda evaluated with CTA abdomen and pelvis with bilater al lower extremity runoff. 2.No significant peripheral vascular disease is seen w ithin the right lower extremity. 3.Bilateral superficial soft tissue andres a is noted. FINDINGS: Superficial soft tissue edema is seen within the bilat eral popliteal regions and infrapopliteal segments. No focal fluid collections. Flow is seen within all evaluated arteri es on color Doppler. Triphasic waveforms are seen throughout the right lowe r extremity without a significant elevation in peak systolic veloc ity to suggest a focal area of stenosis. There is a gradient in systoli c velocity seen between the distal popliteal artery and posterior tibial artery, and minimal change in wavefor m morphology between the two arteries. Triphasic waveforms are seen predominately within the common femoral and superficial femoral arteries of the left lower extremi ty, however, changed to monophasic waveforms within the left poplit eal, anterior tibial, posterior tibial, and dorsalis p tova arteries. There is a gradient in systolic velocity wit hin the distal popliteal artery and proximal anterior t ibial/posterior tibial arteries. Peak systolic velocities are as follows: RIGHT LEG: COMMON FEMORAL: 133cm/s FEMORAL: Proximal: 92cm/s Mid: 118 cm/s Distal: 117cm/s POPLITEAL: Proximal: 57cm/s Mid: 70 cm/s Distal: 104cm/s POSTERIOR TIBIAL: Proximal: 21 cm/s Mid: 30 cm/s Distal: 78 cm/s ANTERIOR TIBIAL: Proximal: 83 cm/s Mid: 112 cm/s Distal: 105 cm/s DORSALIS PEDIS: 79 cm/s LEFT LEG: COMMON FEMORAL: 99 cm/s FEMORAL: Proximal: 104 cm/s Mid: 125 cm/s Distal: 99 cm/s POPLITEAL: Proximal: 93 cm/s Mid: 79 cm/s Distal: 106cm/s POSTERIOR TIBIAL: Proximal: 40 cm/s Mid: 37 cm/s Distal: 71 cm/s ANTERIOR TIBIAL: Proximal: 69cm/s Mid: 31 cm/s Distal: 56cm/s DORSALIS PEDIS: 31cm/s [id number] Procedure Note Hm Interface, Radiology Results Incoming - 04/10/2019 1:22 PM [facility] [employer] EXAM: US DUPLEX ARTERIAL LOWER EXTREMITY BILATERAL HISTORY: Claudication assess for revasc ularization, Diminished pulses claudication arm TECHNIQUE: Real-time as well as pulsed a nd color Doppler evaluation of bilateral common femoral, femoral, popliteal, posterior tibial, anterior tibial, and dorsalis pedis arteries are evaluated. The examination includes a full duplex Doppler scan of t blood vessels (real-time P mode grayscal e, Doppler spectral analysis, and Doppler color flow imaging). IMPRESSION: 1.Questionable stenosis within the left distal popliteal artery or proximal anterior tibial/posterior tibial artery and within the proximal right posterior tibial artery. These findings can be better evaluated with CTA abdomen and pelvis with bilateral lower extremity runoff. 2.No significant peripheral vascular dis ease is seen within the right lower extremity. 3.Bilateral superficial soft tissue andres a is noted. FINDINGS: Superficial soft tissue edema is seen wi thin the bilateral popliteal regions and infrapopliteal segments. No focal fluid collections. Flow is seen within all evaluated arteri es on color Doppler. Triphasic waveforms are seen throughout the right lower extremity without a significant elevation in peak systolic velocity to suggest a focal area of stenosis. There is a gradient in systolic velocity seen between the distal popliteal artery and posterior tibial artery, and minimal williams nge in waveform morphology between the two arteries. Triphasic waveforms are seen predominate ly within the common femoral and superficial femoral arteries of the left lower extremity, however, changed to monophasic waveforms within the left popliteal, anterior tibial, posterior tibial, and dorsalis pedis arteries. There is a gradient in systoli c velocity within the distal popliteal artery and proximal anterior tibial/posterior tibial arteries. Peak systolic velocities are as follows: RIGHT LEG: COMMON FEMORAL: 133cm/s FEMORAL: Proximal: 92cm /s Mid: 118 cm/s Distal: 1 17cm/s POPLITEAL: Proximal: 57c m/s Mid: 70 cm/s Distal: 104cm/s POSTERIOR TIBIAL: Proximal: 21 c m/s Mid: 30 cm/s Distal: 7 8 cm/s ANTERIOR TIBIAL: Proximal: 83 c m/s Mid: 112 cm/s Distal: 1 05 cm/s DORSALIS PEDIS: 79 cm/s LEFT LEG: COMMON FEMORAL: 99 cm/s FEMORAL: Proximal: 104 cm/s Mid: 125 cm/s Distal: 9 9 cm/s POPLITEAL: Proximal: 93 c m/s Mid: 79 cm/s Distal: 106cm/s POSTERIOR TIBIAL: Proximal: 40 c m/s Mid: 37 cm/s Distal: 7 1 cm/s ANTERIOR TIBIAL: Proximal: 69c m/s Mid: 31 cm/s Distal: 56cm/s DORSALIS PEDIS: 31cm/s [id number] Performing Organization Address [facility] Phone Number [facility] [address] [place] [address] XR Tibia Fibula 2 Vw Right (04/10/2019 10:51 AM [employer] [employer]) Specimen Narrative Performed At EXAMINATION: XR TIBIA FIBULA 2 VW RIGH T [facility] CLINICAL HISTORY: rule out osteo COMPARISON: None. IMPRESSION: Frontal and lateral views reveal no acute fracture or dislocation. The osseous structures exhibit normal alignment, mineraliz ation and contour. Minimal degenerative changes are seen with marginal os teophyte formation. Subcutaneous edema is present . [id number] Procedure Note Interface, Radiology Results Incoming - 04/10/2019 12:05 PM [employer] [employer] EXAMINATION: XR TIBIA FIBULA 2 VW RIGHT CLINICAL HISTORY: rule out osteo COMPARISON: None. IMPRESSION: Frontal and lateral views reveal no acut e fracture or dislocation. The osseous structures exhibit normal alignment, mineralization and contour. Minimal degenerative changes are seen with marginal osteophyte formation. Subcutaneous edema is present. [id number] Performing Organization Address [facility] Phone Number [facility] [address] [place] [address] XR Tibia Fibula 2 Vw Left (04/10/2019 10:51 AM [employer] [employer]) Specimen Narrative Performed At EXAMINATION: XR TIBIA FIBULA 2 VW LEFT [facility] CLINICAL HISTORY: rule out osteo COMPARISON: None. IMPRESSION: Frontal and lateral views reveal no acute fracture or dislocation. The osseous structures exhibit normal alignment, mineraliz ation and contour. Minimal degenerative changes are seen with marginal os teophyte formation. Subcutaneous edema is present . [id number] Procedure Note Hm Interface, Radiology Results Incoming - 04/10/2019 12:04 PM [facility] [employer]ER EXAMINATION: XR TIBIA FIBULA 2 VW LEFT CLINICAL HISTORY: rule out osteo COMPARISON: None. IMPRESSION: Frontal and lateral views reveal no acut e fracture or dislocation. The osseous structures exhibit normal alignment, mineralization and contour. Minimal degenerative changes are seen with marginal osteophyte formation. Subcutaneous edema is present. [id number] Performing Organization Address City/State/Zipcode Phone Number [facility] [address] [place] [address] Echocardiogram complete w contrast and 3D if needed (04/10/2019 8:20 AM [facility] [employer]) Pathologist Sig nature Ao Root Diameter 3.55 cm [facility] AoV Area, Vmax 3.12 cm2 [facility] AoV Peak PG 7.96 mmHg [facility] AoV Vmax 1.41 m/s HM [facility] IVS,d 1.32 cm HM [facility] IVS/LVPW,2D 0.98 HM [facility] Left Atrium Dimension Anterior 4.02 cm [facility] LA Area d A4C 20.87 cm2 [facility] LV,d 4.13 cm [facility] LV EF,2D 87.43 % HM [facility] LV,s 2.07 cm [facility] LVOT area 4.05 cm2 [facility] LVOT Diam,S 2.27 cm HM [facility] LVOT Vmax 1.09 m/s HM [facility] LVOT VTI 0.25 m [facility] LVPWD,d 1.35 cm HM [facility] PV Pk Grad 3.92 mmHg HM [facility] PV VMAX 0.99 m/s HM [facility] RVOT Vmax 0.77 m/s [facility] RVSP (TR) 27.48 mmHg [facility] TR Vpeak 2.09 mm/s [facility] MV E A ratio 1.13 HM [facility] TR pk grad 17.48 mmHg [facility] E wave decelartion time 209.89 msec HM [facility] MV Peak A Star 0.99 m/s HM [facility] MV valve area p 1/2 method 3.61 cm2 HM [facility] MV Peak E Star 1.11 m/s HM [facility] MV stenosis pressure 1/2 time 60.87 ms HM [facility] AV LVOT peak gradient 4.72 mmHg HM [facility] Ascending aorta 3.34 cm HM [facility] RVSP 27.48 mmHg HM [facility] Ao Root Diameter 3.55 cm HM [facility] MV mean gradient 1.38 mmHg HM [facility] LV SYS VOL 13.87 ml HM [facility] LV LANCE VOL 75.53 ml HM [facility] LV SV Teich 2D 61.66 ml HM [facility] LV Vol s Teich PSAX 13.87 ml HM [facility] MR peak grad 3.71 mmHg HM [facility] MV Vmax 0.96 m HM [facility] MV VTI Tips 0.32 m HM [facility] RVOT pk grad 2.38 mmHg HM [facility] LV FS Teich 2D 49.91 HM [facility] MV AE ratio 0.89 HM [facility] LV FS Cube 2D 49.91 HM [facility] LVOT Vmn 0.70 HM [facility] LA Vol d MOD A4C 59.18 ml HM [facility] LVOT mean grad 2.16 mmHg HM [facility] MAX Pred HR 143.26 HM [facility] 85 of MPHR 121.77 HM [facility] Calc MPHR 143.26 bpm HM [facility] LV SV Cube 2D 61.61 ml HM [facility] LV vol d cube 2D 70.46 ml HM [facility] LV vol s cube 2D 8.85 ml HM [facility] MV Decel slope 5.29 m/s2 HM [facility] Pred Exer Dur R1 6.09 HM [facility] Pred METS R1 4.72 HM [facility] Velocity Ratio (V1/V2) 0.77 m/s HM [facility] EF 81.64 % HM [facility] E/A ratio 1.12 HM [facility] Specimen Narrative Performed At This result has an attachment that is no t available. Left Ventricular ejection fraction is 60 - 65%. HM [facility] There is moderate left ventricular concentric hyper trophy Spectral Doppler shows pseudonormal pattern of LV d iastolic filling The aortic valve appears normal Trace mitral valve regurgitation Trace tricuspid valve regurgitation. The pulmonic valve appears normal Normal right ventricular size, wall thickness and g lobal function Performing Organization Address City/State/Zipcode Phone Number [facility] [address] [place] [address], Urine culture (04/09/2019 1:24 PM [employer] [employer]ER) Urine culture Mixed john <=10-3 col/cc [facility] IST isolate Comment: HOSPITAL Specimen Information Specimen Source: Urine Specimen Site: See UA Specimen Urine Performing Organization Address City/[facility]/Zipcode Phone Number [facility] DEPARTMENT OF PATHOLOGY AND [address] [place], [place] [address] [facility] [address] [place] [address] Lactic acid level (04/09/2019 2:45 AM [facility] [employer]) Pathologist Sig nature Lactic acid 2.4 (H) 0.5 - 2.2 mmol/L [facility] Specimen Plasma specimen Performing Organization Address City/[facility]/Zipcode Phone Number [facility] DEPARTMENT OF PATHOLOGY [id number] [place] [phone] [facility] [id number] [place] [address] [facility] Lactic acid level, SEPSIS - Now and repeat 2x every 3 hours (04/08/2019 10:15 PM [employer] [employer])Only the most recent of2 resultswithin the time period is included. Pathologist Sig nature Lactic acid 1.8 0.5 - 2.2 mmol/L [facility] Specimen Plasma specimen Performing Organization Address [facility] Phone Number [facility] DEPARTMENT OF PATHOLOGY [id number] [place] [phone] [facility] [id number] [place] [address] [facility] Us duplex venous lower extremity (04/08/2019 6:48 PM [employer] [employer]ER) Specimen Narrative Performed At EXAMINATION: US DUPLEX VENOUS LOWER EX TREMITY BILATERAL HM [facility] CLINICAL HISTORY: Leg swelling or pain DVT suspected COMPARISON: None available. TECHNIQUE: A sonographic examination of the left and right lower extremity venous system including grayscale, color dop pler, and spectral waveform analysis was performed by a dedicated ultraso und technologist. Limited evaluation secondary to patient' s body habitus and bilateral lower extremi ty edema. FINDINGS: BILATERAL LOWER EXTREMITY Common Femoral Vein: Common femoral veins are patent. No thrombus. Normal flow. Profunda Femoral Vein: Profunda femoral veins are winn nt. No thrombus. Normal flow. Superficial Femoral Vein: Superficial femoral veins ar e patent. No thrombus. Normal flow. Popliteal Vein: Popliteal veins are winn nt. No thrombus. Normal flow. Calf Veins: Neither peroneal vein was definitively i dentified. Additionally the left posterior tibialis vein was not identified. The visualized calf veins are patent. No thr ombus. Normal flow. Greater Saphenous Vein: Greater saphenous veins are pa tent. No thrombus. Normal flow. Other findings: None IMPRESSION: 1.No evidence of deep venous thrombosis. 2.Bilateral lower extremity edema. 3.Mildly limited evaluation as neither peroneal or the left posterior tibialis veins were identified. [id number] Procedure Note Interface, Radiology Results Incoming - 04/08/2019 6:56 PM [employer] [employer]ORER EXAMINATION: US DUPLEX VENOUS LOWER EXTREMITY BILATERAL CLINICAL HISTORY: Leg swelling or pain DVT suspected COMPARISON: None available. TECHNIQUE: A sonographic examination of the left and right lower extremity venous system including grayscale, color doppler, and spectral waveform analysis was performed by a dedicated survey technologist. Limited evaluation secondary to patient' s body habitus and bilateral lower extremi ty edema. FINDINGS: BILATERAL LOWER EXTREMITY Common Femoral Vein: Common femoral vein s are patent. No thrombus. Normal flow. Profunda Femoral Vein: Profunda femoral veins are patent. No thrombus. Normal flow. Superficial Femoral Vein: Superficial fe moral veins are patent. No thrombus. Normal flow. Popliteal Vein: Popliteal veins are winn nt. No thrombus. Normal flow. Calf Veins: Neither peroneal vein was d efinitively identified. Additionally the left posterior tibialis vein was not identified. The visualized calf veins are patent. No thrombus. Normal flow. Greater Saphenous Vein: Greater saphenou s veins are patent. No thrombus. Normal flow. Other findings: None IMPRESSION: 1.No evidence of deep venous thrombosis. 2.Bilateral lower extremity edema. 3.Mildly limited evaluation as neither p eroneal or the left posterior tibialis veins were identified. [id number] Performing Organization Address City/State/Zipcode Phone Number [facility] [address] [place] [address] Troponin (04/08/2019 5:23 PM [employer] [employer]ER) Troponin <0.006 0.000 - 0.040 [facility] Comment: ng/mL [facility] In patients suspected of having a myocardial infarctio n, along with all other appropriate clinical measures and actions includ ing ECG and other diagnostics as appropriate, measure Ultra TnI at 0 hrs and at 3 hrs. Myocardial infarction VERY LIKELY The 0 hr TnI level is > 0.10 ng/mL Myocardial infarction LIKELY The 0 hr TnI level is > 0.04 ng/mL and 3 hr level is i ncreased or decreased by at least 0.020 ng/mL Myocardial infarction VERY UNLIKELY Both the 0 hr and 3 hr TnI levels <= 0.04 ng/mL(within normal limits) OR 0 hr is > 0.04 ng/mL and 3 hr is increased OR decreased by less than 0.020 ng/mL Specimen Plasma specimen Performing Organization Address City/State/Zipcode Phone Number [facility] DEPARTMENT OF PATHOLOGY [address] [facility] [address] [facility] [address] [facility] [address] HOSPITAL Blood culture, aerobic & anaerobic (04/08/2019 5:23 PM [employer] [employer]ER)Only the most recent of2 resultswithin the time period is included. [facility] Blood culture No growth after 5 days of incubation. [facility] isolate Comment: HOSPITAL Specimen Information Specimen Source: Blood Specimen Site: Arm, right Specimen Blood - Arm, right Performing Organization Address City/[facility]/Zipcode Phone Number [facility] DEPARTMENT OF PATHOLOGY AND [address] [place] [address] [facility] [address] [place] [address] Partial thromboplastin time, activated (04/08/2019 5:23 PM [facility] [employer]ORER) PTT 34.3 23.0 - 36.0 [facility] Comment: [facility] PTT therapeutic range for unfractionated heparin is HOSPITAL 61.0-112.0 seconds which corresponds to Anti-Xa 0.3-0.7 U/ml. Specimen Blood Performing Organization Address City/[facility]/Zipcode Phone Number [facility] DEPARTMENT OF PATHOLOGY [address] [place] [address] Prothrombin time with INR (04/08/2019 5:23 PM [employer] [employer]ORER) Prothrombin time 12.5 11.5 - 14.5 [facility] INR 0.9 [place] Comment: [facility] Normalized Ratio (INR) is a therapeu [facility] monitoring tool for patients who are stable on oral anticoagulant therapy. An INR of 2.0-3.0 is suggested for deep vein thrombosis/pulmonary embolism. Specimen Blood Performing Organization Address City/[facility] Phone Number [facility] DEPARTMENT OF PATHOLOGY [address] [place] [address] B natriuretic peptide (04/08/2019 5:23 PM [employer] [employer]ORER) Pathologist Sig [facility] BNP 19 0 - 100 pg/mL [facility] Specimen Blood Performing Organization Address [facility]/Zipcode Phone Number [facility] DEPARTMENT OF PATHOLOGY [address] [place] [address] Lipase level (04/08/2019 5:23 PM [employer] [employer]ORER) Pathologist Sig nature Lipase 18 13 - 60 U/L [facility] Specimen Plasma specimen Performing Organization Address City/[facility]/Zipcode Phone Number [facility] DEPARTMENT OF PATHOLOGY [address] [place] [address] Creatine kinase, total (CPK) (04/08/2019 5:23 PM [employer] [employer]ORER) Pathologist Sig nature Creatine kinase 25 (L) 26 - 192 U/L [facility] Specimen Plasma specimen Performing Organization Address City/State/Zipcode Phone Number [facility] DEPARTMENT OF PATHOLOGY [address] [facility] 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
--- NOTE | 2019-07-16 20:21 | RAD REPORT ---
EXAM DESCRIPTION: RAD - Chest Single View - 07/16/2019 7:50 pm CLINICAL HISTORY: COPD;Dyspnea COMPARISON: December 2018 TECHNIQUE: AP portable chest image was obtained 07/16/2019 7:50 pm . FINDINGS: Lung volumes are low. Large body habitus, portable technique and shallow inspiration accen tuate heart, vasculature and lung markings. Patient has a baseline prominent interstitial pattern. He art size is prominent. Vasculature and lung markings are also prominent. This is probably related to exam limitations. A minimal failure or volume overload component is not excluded. Trachea is midline. No measurable pleural effusion and no pneumothorax. No acute bony abnormality seen. No acute aortic findings suspected. IMPRESSION: No peripheral mass or consolidation. Heart, vasculature and lung markings are all prominent. This may be due to body habitus and exam limi tations. However, a minimal failure or volume overload would be a consideration.
[2019-07-16 21:03] LABS: Absolute Lymphocytes (CBC) 1.8 K/uL (0.7-4.9); Hematocrit 37.8 % (36.0-45.0); Lymphocytes % 24.4 % (15.3-44.8); MPV 8.9 fL (7.6-11.3); RBC Red Blood Cell Count 4.63 M/uL (3.86-4.86)
[2019-07-16 21:08] LABS: Protime INR 1.02
[2019-07-16 21:22] LABS: ALT/SGPT 17 U/L (12-78); AST/SGOT 12 U/L (15-37); Albumin 2.9 g/dL (3.4-5.0); Alkaline Phosphatase 94 U/L (45-117); BUN Blood Urea Nitrogen 21 mg/dL (7-18); Bicarbonate 31 mmol/L (21-32); Bilirubin Direct < 0.1 mg/dL (0-0.2); Bilirubin Total 0.3 mg/dL (0.2-1.0); Glucose Level 164 mg/dL (74-106); Magnesium 1.5 mg/dL (1.8-2.4); NT PRO-BNP 95 pg/mL (<450); Potassium 3.5 mmol/L (3.5-5.1); Protein, Total 6.7 g/dL (6.4-8.2); Sodium Level 141 mmol/L (136-145)
[2019-07-16] MEDS ORDERED: Magnesium Sulfate 2gm IVPB 2 G/50 ML BAG IV ONE (21:37)
--- NOTE | 2019-07-16 22:59 | EDPHYS ---
Physician Documentation [facility] Name: Francine Lemons Age: 79 yrs Sex: Female : 1940 Arrival Date: 07/16/2019 Time: 19:18 Bed 4 Private MD: ED Physician Salo Dean HPI: 07/15 20:06 This 79 yrs old Female presents to ER via Ambulatory with complaints of kb Abdominal Pain. 20:06 The patient presents with cellulitis of the right leg and left leg. Description: kb erythematous, swollen, warm. Onset: The symptoms/episode began/occurred 2 week(s) ago. Possible cause(s): lymphedema. Associated signs and symptoms: Pertinent positives: erythema, swelling, Pertinent negatives: discharge, drainage, foreign body sensation, fever, headache, nausea, vomiting. Modifying factors: the symptoms are alleviated by nothing, the symptoms are aggravated by nothing. Severity of symptoms: At their worst the symptoms were moderate, in the emergency department the symptoms are unchanged. The patient has experienced similar episodes in the past, multiple times. The patient has not recently seen a physician. Pt reports she has been holding onto fluid for the past 2-3 weeks. Reports it is hard to breathe because her abdomen is swollen. Reports swelling, erythema and pain to bilateral lower legs. History of lymphedema and cellulitis. Also reports nasal congestion. O2 sat 93-98 on room air. Historical: - Allergies: 19:19 Prednisone; jb4 19:19 Azithromycin; jb4 19:19 Iodine; jb4 - Home Meds: 19:19 Albuterol Inhl [Active]; Bumetanide Oral [Active]; carvedilol Oral [Active]; gabapentin jb4 Oral [Active]; losartan Oral [Active]; Metformin Oral [Active]; Novolin 70/30 [place] Sub-Q [Active]; Potassium Chloride Oral [Active]; Promethazine Oral [Active]; Simvastatin Oral [Active]; Singulair Oral [Active]; Spironolactone Oral [Active]; Tresiba FlexTouch U-100 subcutaneous [Active]; Xanax Oral [Active]; - PMHx: 19:19 ADD/ADHD; Anxiety; CHF; Chronic pain; COPD; Diabetes - IDDM; High Cholesterol; jb4 Hypertension; lymphedema; stasis neuropathy; - PSHx: 19:19 Appendectomy; Hysterectomy; Tonsillectomy; Dental surgery due to abcess; jb4 - Immunization history:: Adult Immunizations up to date. - Social history:: Smoking status: Patient denies any tobacco usage or history of. Patient/guardian denies using alcohol, street drugs. ROS: 20:05 Constitutional: Negative for fever, chills, and weight loss, Neck: Negative for injury, kb pain, and swelling, Cardiovascular: Negative for chest pain, palpitations, and edema, Respiratory: Negative for shortness of breath, cough, wheezing, and pleuritic chest pain, Back: Negative for injury and pain, MS/Extremity: Negative for injury and deformity, Neuro: Negative for headache, weakness, numbness, tingling, and seizure. 20:05 ENT: Positive for nasal congestion. 20:05 Abdomen/GI: Positive for swelling. 20:05 Skin: Positive for erythema, swelling, of the right leg and left leg. Exam: 20:06 Constitutional: This is a well developed, well nourished patient who is awake, alert, kb and in no acute distress. Head/Face: Normocephalic, atraumatic. Chest/axilla: Normal chest wall appearance and motion. Nontender with no deformity. No lesions are appreciated. Cardiovascular: Regular rate and rhythm with a normal S1 and S2. No gallops, murmurs, or rubs. Normal PMI, no JVD. No pulse deficits. Respiratory: Lungs have equal breath sounds bilaterally, clear to auscultation and percussion. No rales, rhonchi or wheezes noted. No increased work of breathing, no retractions or nasal flaring. Abdomen/GI: Soft, non-tender, with normal bowel sounds. No distension or tympany. No guarding or rebound. No evidence of tenderness throughout. MS/ Extremity: Pulses equal, no cyanosis. Neurovascular intact. Full, normal range of motion. Neuro: Awake and alert, GCS 15, oriented to person, place, time, and situation. Cranial nerves II-XII grossly intact. Motor strength 5/5 in all extremities. Sensory grossly intact. Cerebellar exam normal. Normal gait. 20:06 Skin: cellulitis, that is moderate, on the right lower leg and left lower leg. Vital Signs: 19:19 BP 184 / 81; Pulse 83; Resp 18; Temp 98.7(O); Pulse Ox 95% on R/A; Weight 111.13 kg jb4 (R); Height 5 ft. 3 in. (160.02 cm) (R); Pain 6/10; 20:00 BP 145 / 49; Pulse 79; Resp 16; Pulse Ox 96% on R/A; jb4 21:15 BP 132 / 55; Pulse 76; Resp 18; Pulse Ox 98% on R/A; jb4 22:42 BP 119 / 49; Pulse 68; Resp 18; Pulse Ox 96% on R/A; rv 23:00 BP 140 / 57; Pulse 74; Resp 16; Pulse Ox 96% on R/A; jb4 19:19 Body Mass Index 43.40 (111.13 kg, 160.02 cm) jb4 MDM: 19:32 Patient medically screened. kb 20:05 Data reviewed: vital signs, nurses notes. Data interpreted: Pulse oximetry: on room air kb is 97 %. Interpretation: normal. 22:57 Counseling: I had a detailed discussion with the patient and/or guardian regarding: the kb historical points, exam findings, and any diagnostic results supporting the discharge/admit diagnosis, lab results, radiology results, the need for outpatient follow up, a family practitioner, to return to the emergency department if symptoms worsen or persist or if there are any questions or concerns that arise at home. 07/15 19:46 Order name: Basic Metabolic Panel; Complete Time: 21:23 kb 07/15 19:46 Order name: CBC with Diff; Complete Time: 21:11 kb 07/15 19:46 Order name: LFT's; Complete Time: 21:23 kb 07/15 19:46 Order name: Magnesium; Complete Time: 21:23 kb 07/15 19:46 Order name: NT PRO-BNP; Complete Time: 21:23 kb 07/15 19:46 Order name: PT-INR; Complete Time: 21:16 kb 07/15 19:33 Order name: Chest Single View XRAY; Complete Time: 20:24 kb 07/15 19:46 Order name: Lactate; Complete Time: 21:23 kb 07/15 19:46 Order name: Procalcitonin; Complete Time: 22:59 kb 07/15 19:46 Order name: Blood Culture Adult (2) kb 07/15 19:46 Order name: EKG; Complete Time: 19:46 kb 07/15 19:46 Order name: Cardiac monitoring; Complete Time: 19:46 kb 07/15 19:46 Order name: EKG - Nurse/Tech; Complete Time: 19:46 kb 07/15 19:46 Order name: IV Saline Lock; Complete Time: 20:55 kb 07/15 19:46 Order name: Labs collected and sent; Complete Time: 20:55 kb 07/15 19:46 Order name: O2 Per Protocol; Complete Time: 19:46 kb 07/15 19:46 Order name: O2 Sat Monitoring; Complete Time: 19:46 kb Administered Medications: 21:34 Drug: Magnesium Sulfate 2 grams Route: IVPB; Infused Over: 1 hrs; Site: right 4 antecubital; 22:34 Follow up: Response: No adverse reaction; IV Status: Completed infusion jb4 23:05 Drug: Doxycycline 100 mg Route: PO; jb4 23:13 Follow up: Response: Medication administered at discharge. jb4 23:05 Drug: Bactrim (160 mg-800 mg (DS) 1 tablet Route: PO; jb4 23:13 Follow up: Response: Medication administered at discharge. jb4 Disposition: 07/16 06:25 Co-signature as Attending Physician, Salo Dean MD. [email or web address] Disposition: 07/16/19 22:59 Discharged to Home. Impression: Cellulitis of left lower limb, Cellulitis of right lower limb, Lymphedema, not elsewhere classified. - Condition is Stable. - Discharge Instructions: Cellulitis, Adult, [id number], Lymphangitis, Adult. - Prescriptions for Doxycycline Hyclate 100 mg Oral Tablet - take 1 tablet by ORAL route every 12 hours; 20 tablet. Bactrim DS 800- 160 mg Oral Tablet - take 1 tablet by ORAL route every 12 hours for 10 days; 20 tablet. - Medication Reconciliation Form, Thank You Letter, Antibiotic Education, Prescription Opioid Use form. - Follow up: Emergency Department; When: As needed; Reason: Worsening of condition. Follow up: Private Physician; When: 2 - 3 days; Reason: Recheck today's complaints, Continuance of care, Re-evaluation by your physician. Signatures: Dispatcher [employer] EDChiara Cabrales, ILAN-C ILAN-Lan Frederick RN RN jb4 Salo Dean MD MD [email or web address] Corrections: (The following items were deleted from the chart) 07/15 19:55 19:46 TROPONIN (EMERG DEPT USE ONLY)+C.LAB.BRZ ordered. EDMS EDMS 20:09 20:06 Pt reports she has been holding onto fluid for the past 2-3 weeks. Reports it is kb hard to breathe because her abdomen is swollen. Reports swelling, erythema and pain to bilateral lower legs. History of lymphedema and cellulitis. Also reports nasal congestion. kb 23:15 22:59 07/16/2019 22:59 Discharged to Home. Impression: Cellulitis of left lower limb; jb4 Cellulitis of right lower limb; Lymphedema, not elsewhere classified. Condition is Stable. Forms are Medication Reconciliation Form, Thank You Letter, Antibiotic Education, Prescription Opioid Use. Follow up: Emergency Department; When: As needed; Reason: Worsening of condition. Follow up: Private Physician; When: 2 - 3 days; Reason: Recheck today's complaints, Continuance of care, Re-evaluation by your physician. kb
--- NOTE | 2019-07-16 22:59 | ER ---
Nurse's Notes [facility] Name: Francine Lemons Age: 79 yrs Sex: Female : 1940 Arrival Date: 07/16/2019 Time: 19:18 Bed 4 Private MD: Diagnosis: Cellulitis of left lower limb;Cellulitis of right lower limb;Lymphedema, not elsewhere classified Presentation: 07/15 19:19 Chief complaint: Patient states: I have pain, redness, and swelling in both legs that jb4 has been going on for about 1 week. I have COPD and yesterday began getting short of breath. 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 19:19 Coronavirus screen: Patient denies a cough. Patient reports shortness of breath or jb4 difficulty breathing. Patient denies measured and/or subjective temperature greater than 100.4F prior to today's visit. Patient denies travel on a cruise ship or to a country the [facility] currently lists as an affected area. Patient denies contact with known and/or suspected case of COVID-19. Ebola Screen: No symptoms or risks identified at this time. Initial Sepsis Screen: Does the patient meet any 2 criteria? No. Patient's initial sepsis screen is negative. Does the patient have a suspected source of infection? No. Patient's initial sepsis screen is negative. Risk Assessment: Do you want to hurt yourself or someone else? Patient reports no desire to harm self or others. Onset of symptoms was July 10, 2019. Transition of care: patient was not received from another setting of care. 19:19 Method Of Arrival: Ambulatory jb4 19:19 Acuity: AURELIO 3 jb4 Historical: - Allergies: 19:19 Prednisone; jb4 19:19 Azithromycin; jb4 19:19 Iodine; jb4 - Home Meds: 19:19 Albuterol Inhl [Active]; Bumetanide Oral [Active]; carvedilol Oral [Active]; gabapentin jb4 Oral [Active]; losartan Oral [Active]; Metformin Oral [Active]; Novolin 70/30 [place] Sub-Q [Active]; Potassium Chloride Oral [Active]; Promethazine Oral [Active]; Simvastatin Oral [Active]; Singulair Oral [Active]; Spironolactone Oral [Active]; Tresiba FlexTouch U-100 subcutaneous [Active]; Xanax Oral [Active]; - PMHx: 19:19 ADD/ADHD; Anxiety; CHF; Chronic pain; COPD; Diabetes - IDDM; High Cholesterol; jb4 Hypertension; lymphedema; stasis neuropathy; - PSHx: 19:19 Appendectomy; Hysterectomy; Tonsillectomy; Dental surgery due to abcess; jb4 - Immunization history:: Adult Immunizations up to date. - Social history:: Smoking status: Patient denies any tobacco usage or history of. Patient/guardian denies using alcohol, street drugs. Screenin:19 Abuse screen: Denies threats or abuse. Nutritional screening: No deficits noted. jb4 Tuberculosis screening: No symptoms or risk factors identified. Fall Risk Ambulatory Aid- Crutches/Cane/Walker (15 pts). Total Meza Fall Scale indicates No Risk (0-24 pts). Assessment: 19:19 General: Appears in no apparent distress. uncomfortable, Behavior is calm, cooperative, jb4 appropriate for age, Swelling, redness and pain is noted to the lower extremities. Pain: Complains of pain in right leg and left leg Pain does not radiate. Pain currently is 6 out of 10 on a pain scale. Quality of pain is described as burning, Pain began 1 week ago. Neuro: Level of Consciousness is awake, alert, obeys commands, Oriented to person, place, time, situation. Cardiovascular: Patient's skin is warm and dry. Respiratory: Airway is patent Respiratory effort is even, unlabored, Respiratory pattern is regular, symmetrical, Breath sounds are clear bilaterally. GI: No signs and/or symptoms were reported involving the gastrointestinal system. : No signs and/or symptoms were reported regarding the genitourinary system. EENT: No signs and/or symptoms were reported regarding the EENT system. Derm: Skin is intact, Skin is pink, warm \T\ dry. Musculoskeletal: Circulation, motion, and sensation intact. Range of motion: intact in all extremities. 20:00 Reassessment: Patient appears in no apparent distress at this time. Patient and/or jb4 family updated on plan of care and expected duration. Pain level reassessed. Patient is alert, oriented x 3, equal unlabored respirations, skin warm/dry/pink. 21:04 Reassessment: Patient appears in no apparent distress at this time. Patient and/or jb4 family updated on plan of care and expected duration. Pain level reassessed. Patient is alert, oriented x 3, equal unlabored respirations, skin warm/dry/pink. 22:42 Reassessment: Patient and/or family updated on plan of care and expected duration. Pain rv level reassessed. Patient is alert, oriented x 3, equal unlabored respirations, skin warm/dry/pink. Patient states feeling better. Patient states symptoms have improved. 23:00 Reassessment: Patient appears in no apparent distress at this time. Patient and/or jb4 family updated on plan of care and expected duration. Pain level reassessed. Patient is alert, oriented x 3, equal unlabored respirations, skin warm/dry/pink. Provider at the bedside explain plan of care. 23:10 Reassessment: PT verbalized understanding of D/c and follow up instructions. Denies jb4 questions or concerns. Ambulated out of ED with walker with steady gait. Vital Signs: 19:19 BP 184 / 81; Pulse 83; Resp 18; Temp 98.7(O); Pulse Ox 95% on R/A; Weight 111.13 kg jb4 (R); Height 5 ft. 3 in. (160.02 cm) (R); Pain 6/10; 20:00 BP 145 / 49; Pulse 79; Resp 16; Pulse Ox 96% on R/A; jb4 21:15 BP 132 / 55; Pulse 76; Resp 18; Pulse Ox 98% on R/A; jb4 22:42 BP 119 / 49; Pulse 68; Resp 18; Pulse Ox 96% on R/A; rv 23:00 BP 140 / 57; Pulse 74; Resp 16; Pulse Ox 96% on R/A; jb4 19:19 Body Mass Index 43.40 (111.13 kg, 160.02 cm) 4 ED Course: 19:18 Patient arrived in ED. cl3 19:19 Arm band placed on right wrist. EKG completed in triage. Results shown to MD. jb4 19:19 Patient has correct armband on for positive identification. Bed in low position. Call [facility] light in reach. Side rails up X 1. Pulse ox on. NIBP on. 19:26 Lan Ford, RN is Primary Nurse. jb4 19:30 Triage completed. jb4 19:32 Chiara Hsieh FNP-C [facility]. kb 19:32 Salo Dean MD is Attending Physician. kb 19:50 Chest Single View XRAY In Process Unspecified. EDMS 20:15 Inserted saline lock: 20 gauge antecubital area, using aseptic technique. oe 20:20 Missed attempt(s): 24 gauge Bleeding controlled, band aid applied, catheter tip intact. oe 20:40 Inserted saline lock: 24 gauge in right hand, using aseptic technique. Blood collected. lp1 20:40 First set of blood cultures drawn by me. lp1 23:15 No provider procedures requiring assistance completed. IV discontinued, intact, jb4 bleeding controlled, No redness/swelling at site. Pressure dressing applied. Administered Medications: 21:34 Drug: Magnesium Sulfate 2 grams Route: IVPB; Infused Over: 1 hrs; Site: right jb4 antecubital; 22:34 Follow up: Response: No adverse reaction; IV Status: Completed infusion jb4 23:05 Drug: Doxycycline 100 mg Route: PO; jb4 23:13 Follow up: Response: Medication administered at discharge. jb4 23:05 Drug: Bactrim (160 mg-800 mg (DS) 1 tablet Route: PO; jb4 23:13 Follow up: Response: Medication administered at discharge. jb4 Outcome: 22:59 Discharge ordered by . kb 23:15 Discharged to home ambulatory, with family. jb4 23:15 Condition: stable 23:15 Discharge instructions given to patient, Instructed on discharge instructions, follow up and referral plans. medication usage, Demonstrated understanding of instructions, follow-up care, medications, Prescriptions given X 2. 23:15 Patient left the ED. jb4 Signatures: Dispatcher [employer] EDMS Chiara Hsieh FNP-C THERMAL SPRAY OPERATOR-Ckb Melissa Phelan RN RN lp1 Lan Ford RN RN jb4 Nathanael Talavera Ronaldo, RN RN Dea Doyle cl3 Corrections: (The following items were deleted from the chart) 19:38 19:19 Chief complaint: Patient states: I have pain, redness, and swelling in both legs jb4 that has been going on for about 1 week. I have COPD and yesterday began getting short of breath. jb4
[2019-07-16] MEDS ORDERED: SMZ./TMP. 800/160 MG TABLET ONE (23:10)
[2019-07-16] MEDS ORDERED: DOXYCYCLINE 100 MG CAP PO ONE (23:10)
[2019-07-16 23:36] VITALS: TEMP 98.7
[2019-07-16 23:40] VITALS: O2SAT 96
[2019-07-16 23:41] VITALS: BP 140/57
--- NOTE | 2019-07-18 07:48 | EKG ---
Test Date: 2019-07-16 Test Time: 19:28:03 Director Of Design: WALKER MEASUREMENT RESULTS: Intervals: Rate: 80 [place]: 212 QRSD: 88 QT: 394 QTc: 454 [place]: P: 82 [place]: 212 QRS: -34 T: 24 INTERPRETIVE STATEMENTS: Sinus rhythm with 1st degree AV block Left axis deviation Pulmonary disease pattern Abnormal ECG Compared to ECG 12/25/2018 06:44:31 Myocardial infarct finding no longer present Electronically Signed On 07-18-19 07:44:52 CDT by Max Chacko
== END 2019-07-16 23:15 | disposition home or self-care (01) ==
LOC: ER 18:47
DX: L03.116 Cellulitis of left lower limb (principal); L03.115 Cellulitis of right lower limb; I10 Essential (primary) hypertension; E11.9 Type 2 diabetes mellitus without complications; F41.9 Anxiety disorder, unspecified; E78.00 Pure hypercholesterolemia, unspecified; Z79.4 Long term (current) use of insulin; Z88.1 Allergy status to other antibiotic agents; Z88.8 Allergy status to other drugs, medicaments and biological substances
CPT/HCPCS: 96365; 93005; 87040 ×2; 85025; 80048; 36415; 83735; 85610; 80076; 83605; 84145; 83880; 71045; 99284; J3475

== ENCOUNTER 2020-11-23 10:47 | Emergency (ER) | payer OTHER ==
[2020-11-23 12:29] LABS: Absolute Lymphocytes (CBC) 1.3 K/uL (0.7-4.9); Basophils % 0.9 % (0-1.3); Hematocrit 43.9 % (36.0-45.0); Lymphocytes % 21.8 % (15.3-44.8); RBC Red Blood Cell Count 5.29 M/uL (3.86-4.86)
[2020-11-23 12:33] LABS: Potassium 4.2 mmol/L (3.5-5.1)
--- NOTE | 2020-11-23 13:02 | EDPHYS ---
Physician Documentation [facility] Name: Francine Lemons Age: 80 yrs Sex: Female : 1940 Arrival Date: 11/23/2020 Time: 10:50 Bed 8 Private MD: Gareth Renae ED Physician Nilo Ansari HPI: 11/23 15:58 This 80 yrs old Female presents to ER via Wheelchair with complaints of Leg kb Swelling, Wound Check. 15:58 The patient presents with cellulitis of the left guo. Description: erythematous, hot. kb Onset: The symptoms/episode began/occurred 3 day(s) ago. Possible cause(s): unknown. Associated signs and symptoms: Pertinent positives: erythema. Modifying factors: the symptoms are alleviated by nothing, the symptoms are aggravated by nothing. Severity of symptoms: At their worst the symptoms were mild, moderate, in the emergency department the symptoms are unchanged. The patient has experienced similar episodes in the past, several times. The patient has not recently seen a physician. Pt's son reports pt has lymphedema to bilateral lower extremities. States the left lower leg developed warmth and redness 3 days ago so they came in to get antibiotics. Reports she has wounds on the right leg that have been there for a while and are getting treated at wound care at [place]. Historical: - Allergies: 11:05 Azithromycin; jl7 11:05 Iodine; jl7 11:05 Prednisone; makes blood sugar really high; jl7 - PMHx: 11:05 ADD/ADHD; Anxiety; CHF; Chronic pain; COPD; Diabetes - IDDM; High Cholesterol; jl7 Hypertension; lymphedema; stasis neuropathy; - Immunization history:: Adult Immunizations unknown, Client reports having NOT received the Covid vaccine. - Social history:: Smoking status: Patient denies any tobacco usage or history of. ROS: 15:57 Constitutional: Negative for fever, chills, and weight loss. kb 15:57 MS/extremity: Positive for erythema, warmth, of the left guo. 15:57 All other systems are negative. Exam: 15:57 Constitutional: This is a well developed, well nourished patient who is awake, alert, kb and in no acute distress. Head/Face: Normocephalic, atraumatic. ENT: Moist Mucous membranes Respiratory: Respirations even and unlabored. No increased work of breathing, no retractions or nasal flaring. MS/ Extremity: Pulses equal, no cyanosis. Neurovascular intact. Full, normal range of motion. Neuro: Awake and alert, GCS 15, oriented to person, place, time, and situation. Moves all extremities. Normal gait. Psych: Awake, alert, with orientation to person, place and time. Behavior, mood, and affect are within normal limits. 15:57 Skin: cellulitis, that is mild, on the left guo, 2 small open wounds to right guo that are packed. Vital Signs: 11:04 BP 121 / 66; Pulse 73; Resp 17; Temp 97.1; Pulse Ox 96% ; Weight 99.79 kg; Pain 7/10; jl7 12:00 BP 121 / 84; Pulse 56; Resp 16; Pulse Ox 97% ; bp 13:39 BP 127 / 79; Pulse 67; Resp 17; Temp 98.1; Pulse Ox 97% ; bp MDM: 11:10 Patient medically screened. kb 15:56 Data reviewed: vital signs, nurses notes. Data interpreted: Pulse oximetry: on room air kb is 97 %. Interpretation: normal. Counseling: I had a detailed discussion with the patient and/or guardian regarding: the historical points, exam findings, and any diagnostic results supporting the discharge/admit diagnosis, lab results, the need for outpatient follow up, a family practitioner, to return to the emergency department if symptoms worsen or persist or if there are any questions or concerns that arise at home. 11/23 11:19 Order name: CBC with Diff; Complete Time: 12:40 kb 11/23 11:19 Order name: Basic Metabolic Panel; Complete Time: 12:40 kb 11/23 11:19 Order name: IV Start; Complete Time: 12:16 kb 11/23 11:19 Order name: Blood Culture Adult (2) kb Administered Medications: No medications were administered Disposition: 11/24 12:50 Co-signature as Attending Physician, Nilo Ansari MD I agree with the assessment and kdr plan of care. Disposition Summary: 11/23/20 13:01 Discharge Ordered Location: Home kb Condition: Stable kb Diagnosis - Cellulitis of left lower limb kb Followup: kb - With: Emergency Department - When: As needed - Reason: Worsening of condition Followup: kb - With: Private Physician - When: 2 - 3 days - Reason: Recheck today's complaints, Continuance of care, Re-evaluation by your physician Discharge Instructions: - Discharge Summary Sheet kb - Cellulitis, Adult, [id number] kb Forms: - Medication Reconciliation Form kb - Thank You Letter kb - Antibiotic Education kb - Prescription Opioid Use kb Prescriptions: - Bactrim DS 800-160 mg Oral Tablet - take 1 tablet by ORAL route every 12 hours for 10 days; 20 tablet; Refills: 0, kb Product Selection Permitted Signatures: Dispatcher [employer] EDMS Chiara Hsieh, BODY STRAIGHTENER-C BODY STRAIGHTENER-Nilo Goncalves MD MD kdr Leal, Jahala RN RN jl7
--- NOTE | 2020-11-23 13:02 | ER ---
Nurse's Notes [facility] Name: Francine Lemons Age: 80 yrs Sex: Female : 1940 Arrival Date: 11/23/2020 Time: 10:50 Bed 8 Private MD: Gareth Renae Diagnosis: Cellulitis of left lower limb Presentation: 11/23 11:04 Chief complaint: Patient states: Left leg swelling and pain x 6 months, right leg wound jl7 being taken care of at [facility] and I want to change to this hospital. Coronavirus screen: At this time, the client does not indicate any symptoms associated with coronavirus-19. Ebola Screen: No symptoms or risks identified at this time. Initial Sepsis Screen: Does the patient meet any 2 criteria? No. Patient's initial sepsis screen is negative. Does the patient have a suspected source of infection? No. Patient's initial sepsis screen is negative. Risk Assessment: Do you want to hurt yourself or someone else? Patient reports no desire to harm self or others. Onset of symptoms is unknown. 11:04 Method Of Arrival: Wheelchair jl7 11:04 Acuity: AURELIO 3 jl7 Triage Assessment: 11:05 General: Appears in no apparent distress. uncomfortable, Behavior is calm, cooperative, jl7 appropriate for age. Pain: Complains of pain in right leg and left leg Pain currently is 7 out of 10 on a pain scale. Historical: - Allergies: 11:05 Azithromycin; jl7 11:05 Iodine; jl7 11:05 Prednisone; makes blood sugar really high; jl7 - PMHx: 11:05 ADD/ADHD; Anxiety; CHF; Chronic pain; COPD; Diabetes - IDDM; High Cholesterol; jl7 Hypertension; lymphedema; stasis neuropathy; - Immunization history:: Adult Immunizations unknown, Client reports having NOT received the Covid vaccine. - Social history:: Smoking status: Patient denies any tobacco usage or history of. Screenin:05 Abuse screen: Denies threats or abuse. Denies injuries from another. Nutritional bp screening: No deficits noted. Tuberculosis screening: No symptoms or risk factors identified. Fall Risk None identified. Assessment: 11:05 General: SEE TRIAGE NOTE. bp 13:39 Reassessment: PT D/C HOME VIA W/C WITH FAMILY, DX WITH LOWER LIMB CELLULITIS. bp Vital Signs: 11:04 BP 121 / 66; Pulse 73; Resp 17; Temp 97.1; Pulse Ox 96% ; Weight 99.79 kg; Pain 7/10; jl7 12:00 BP 121 / 84; Pulse 56; Resp 16; Pulse Ox 97% ; bp 13:39 BP 127 / 79; Pulse 67; Resp 17; Temp 98.1; Pulse Ox 97% ; bp ED Course: 10:50 Patient arrived in ED. as 10:50 Gareth Renae MD is Private Physician. as 11:05 Triage completed. jl7 11:05 Arm band placed on right wrist. jl7 11:05 Patient has correct armband on for positive identification. Bed in low position. Call bp light in reach. Side rails up X2. 11:10 Chiara Hsieh FNP-C is [facility]. kb 11:10 Nilo Ansari MD is Attending Physician. kb 11:59 Heriberto Edwards, PILO is Primary Nurse. bp 12:10 Inserted saline lock: 22 gauge in right forearm, using aseptic technique. Blood ap3 collected. 13:39 No provider procedures requiring assistance completed. IV discontinued, intact, bp bleeding controlled, No redness/swelling at site. Pressure dressing applied. Administered Medications: No medications were administered Outcome: 13:01 Discharge ordered by MD. kb 13:39 Discharged to home via wheelchair, with family. bp 13:39 Condition: stable 13:39 Discharge instructions given to patient, family, Instructed on discharge instructions, follow up and referral plans. medication usage, Demonstrated understanding of instructions, follow-up care, medications, Prescriptions given X 1. 13:43 Patient left the ED. bp Signatures: Chiara Hsieh FNP-C FNP-Allison Ramirez Jahala RN RN jl7 Heriberto Edwards, RN RN Zoraida Lerner RN RN ap3 Corrections: (The following items were deleted from the chart) 11:07 11:04 Chief complaint: Patient states: Left leg swelling and pain x 6 months jl7 7 12:34 12:26 BP 121 / 84; Pulse 56bpm; Resp 16bpm; Pulse Ox 97%; bp bp
[2020-11-23 13:51] VITALS: O2SAT 97
[2020-11-23 13:52] VITALS: BP 127/79; TEMP 98.1
== END 2020-11-23 13:43 | disposition home or self-care (01) ==
LOC: ER 10:47
DX: L03.116 Cellulitis of left lower limb (principal); I10 Essential (primary) hypertension; Z88.3 Allergy status to other anti-infective agents; Z88.8 Allergy status to other drugs, medicaments and biological substances; Z91.048 Other nonmedicinal substance allergy status
CPT/HCPCS: 36415; 80048; 85025; 87040; 99283

== ENCOUNTER 2020-12-12 11:24 | Emergency (ER) | payer OTHER ==
--- NOTE | 2020-12-12 12:42 | RAD REPORT ---
EXAM DESCRIPTION: US - Extrem Venous W Compress Geraldo - 12/12/2020 12:31 pm CLINICAL HISTORY: Swelling COMPARISON: None. TECHNIQUE: Real-time sonographic evaluation of the bilateral lower extremity deep venous systems was performed. FINDINGS: Normal compressibility, flow augmentation, phasic flow and spontaneous flow is identified in both the left and right lower extremity deep venous systems. No intraluminal filling defects seen. Note that the posterior tibial veins were not visualized due to ankle wrapping. IMPRESSION: No DVT in either lower extremity. Posterior tibial veins not evaluated.
[2020-12-12 13:07] LABS: Absolute Lymphocytes (CBC) 1.8 K/uL (0.7-4.9); Basophils % 0.9 % (0-1.3); Hematocrit 43.5 % (36.0-45.0); Lymphocytes % 26.7 % (15.3-44.8); MPV 8.8 fL (7.6-11.3); RBC Red Blood Cell Count 5.21 M/uL (3.86-4.86)
[2020-12-12 13:28] LABS: Albumin 3.2 g/dL (3.4-5.0); Bilirubin Total 0.3 mg/dL (0.2-1.0); Potassium 3.7 mmol/L (3.5-5.1); Protein, Total 6.9 g/dL (6.4-8.2)
--- NOTE | 2020-12-12 14:19 | ER ---
Nurse's Notes [facility] Name: Francine Lemons Age: 80 yrs Sex: Female : 1940 Arrival Date: 12/12/2020 Time: 11:25 Bed 13 Private MD: Diagnosis: Wound Evaluation;Person with feared health complaint in whom no diagnosis is made Presentation: 12/12 11:34 Chief complaint: Patient states: Bilateral lower legs pains, redness, sites feel hot ll1 for about 1 week. Had skin graft to RLE 2 weeks ago. Having trouble following-up due to insurance/payment reasons. Coronavirus screen: Vaccine status: Patient reports being unvaccinated. Client denies travel out of the [place] in the last 14 days. At this time, the client does not indicate any symptoms associated with coronavirus-19. Ebola Screen: Patient denies travel to an Ebola-affected area in the 21 days before illness onset. Initial Sepsis Screen: Does the patient meet any 2 criteria? No. Patient's initial sepsis screen is negative. Does the patient have a suspected source of infection? Yes: Skin breakdown/wound. Risk Assessment: Do you want to hurt yourself or someone else? Patient reports no desire to harm self or others. Onset of symptoms was December 06, 2020. 11:34 Method Of Arrival: Wheelchair ll1 11:34 Acuity: AURELIO 3 ll1 Historical: - Allergies: 11:31 Azithromycin; ll1 11:31 Iodine; ll1 11:31 Prednisone; makes blood sugar really high; ll1 - PMHx: 11:31 ADD/ADHD; Anxiety; Diabetes - IDDM; lymphedema; High Cholesterol; COPD; Chronic pain; ll1 CHF; Hypertension; stasis neuropathy; - PSHx: 11:31 skin graft RLE; hysterectomy; ll1 - Immunization history:: Client reports having NOT received the Covid vaccine. Flu vaccine is not up to date. - Social history:: Smoking status: Patient denies any tobacco usage or history of. Smoking status: Patient/guardian denies using tobacco, the patient reports quitting approximately 25 years ago. Screenin:29 Abuse screen: Denies threats or abuse. Denies injuries from another. Nutritional jt3 screening: No deficits noted. Tuberculosis screening: No symptoms or risk factors identified. Fall Risk None identified. Assessment: 12:23 General: Appears in no apparent distress. Behavior is calm, cooperative. Pain: jt3 Complains of pain in right leg 12:33 Derm: Wound noted right leg and left leg Other: Redness and warm to bilateral legs. Per jt3 Dr. Bettencourt, did not want RN to unwrap legs at this time. 14:32 Reassessment: No changes from previously documented assessment. Patient and/or family ll1 updated on plan of care and expected duration. Pain level reassessed. Patient is alert, oriented x 3, equal unlabored respirations, skin warm/dry/pink. Patient states feeling better. Vital Signs: 11:34 BP 119 / 47; Pulse 79; Resp 18; Temp 97.4; Pulse Ox 94% ; Weight 99.79 kg; Height 5 ft. ll1 3 in. (160.02 cm); Pain 5/10; 14:31 BP 125 / 53; Pulse 77; Resp 17; Pulse Ox 95% on R/A; Pain 0/10; ll1 11:34 Body Mass Index 38.97 (99.79 kg, 160.02 cm) ll1 ED Course: 11:25 Patient arrived in ED. as 11:33 Arm band placed on Patient placed in an exam room, on a stretcher. ll1 11:36 Triage completed. 1 11:41 Shravan Monsivais PA is PHCP. [facility] 11:41 Pierce Bettencourt MD is Attending Physician. [facility] 11:41 Carl Robles, PILO is Primary Nurse. jt3 12:29 Patient has correct armband on for positive identification. Bed in low position. Call jt3 light in reach. Side rails up X2. 12:29 No provider procedures requiring assistance completed. jt3 12:31 US Extremity Venous W Compression Geraldo In Process Unspecified. EDMS 12:57 Inserted saline lock: 20 gauge in right wrist, using aseptic technique. Blood collected.dh4 13:40 Dressings: non-adherent dressing x 2 right leg and left leg Wound Care Nurses at t3 bedside dressing each leg. 14:31 IV discontinued, intact, bleeding controlled, No redness/swelling at site. Pressure ll1 dressing applied. Administered Medications: No medications were administered Outcome: 14:18 Discharge ordered by . [facility] 14:31 Discharged to home via wheelchair. ll1 14:31 Condition: stable 14:31 Discharge instructions given to patient, family, Instructed on discharge instructions, follow up and referral plans. Demonstrated understanding of instructions, follow-up care. 14:32 Patient left the ED. ll1 Signatures: Dispatcher [employer] EDShravan Hawk PA PA jmm Martinez, Amelia as Huhn, Donald 4 Tahir Calderon RN RN ll1 Carl Robles RN RN jt3
--- NOTE | 2020-12-12 14:19 | EDPHYS ---
Physician Documentation [facility] Name: Francine Lemons Age: 80 yrs Sex: Female : 1940 Arrival Date: 12/12/2020 Time: 11:25 Bed 13 Private MD: ED Physician Pierce Bettencourt HPI: 12/12 12:46 This 80 yrs old Female presents to ER via Wheelchair with complaints of Wound jmm Check. 12:46 The affected area is on the right leg. Previous treatment: Skin graft. This is a jmm 80-year-old female with a history of diabetes mellitus, lymphedema, hyperlipidemia the complains of redness and swelling particular to her right lower leg after receiving a skin graft approximately 2 weeks ago at [facility]. States that Dr. Martinez of was the surgeon.. Historical: - Allergies: 11:31 Azithromycin; ll1 11:31 Iodine; ll1 11:31 Prednisone; makes blood sugar really high; ll1 - PMHx: 11:31 ADD/ADHD; Anxiety; Diabetes - IDDM; lymphedema; High Cholesterol; COPD; Chronic pain; ll1 CHF; Hypertension; stasis neuropathy; - PSHx: 11:31 skin graft RLE; hysterectomy; ll1 - Immunization history:: Client reports having NOT received the Covid vaccine. Flu vaccine is not up to date. - Social history:: Smoking status: Patient denies any tobacco usage or history of. Smoking status: Patient/guardian denies using tobacco, the patient reports quitting approximately 25 years ago. ROS: 12:46 Constitutional: Negative for body aches, chills, fever. jmm 12:46 MS/extremity: Positive for erythema, pain, swelling. 12:46 All other systems are negative. Exam: 12:46 Constitutional: This is a well developed, well nourished patient who is awake, alert, jmm and in no acute distress. Head/Face: atraumatic. Eyes: EOMI, no conjunctival erythema appreciated ENT: Moist Mucus Membranes Neck: Trachea midline, Supple Chest/axilla: Normal chest wall appearance and motion. Cardiovascular: Regular rate and rhythm. No edema appreciated Respiratory: Normal respirations, no respiratory distress appreciated Abdomen/GI: Non distended, soft Back: Normal ROM 12:46 Skin: Erythema noted to the right lower leg. 12:46 Neuro: Orientation: is normal, Mentation: is normal, Memory: is normal. 12:46 Psych: Behavior/mood is pleasant, cooperative. Vital Signs: 11:34 BP 119 / 47; Pulse 79; Resp 18; Temp 97.4; Pulse Ox 94% ; Weight 99.79 kg; Height 5 ft. ll1 3 in. (160.02 cm); Pain 5/10; 14:31 BP 125 / 53; Pulse 77; Resp 17; Pulse Ox 95% on R/A; Pain 0/10; ll1 11:34 Body Mass Index 38.97 (99.79 kg, 160.02 cm) ll1 MDM: 11:54 Patient medically screened. [facility] 14:16 Data reviewed: vital signs, nurses notes. Counseling: I had a detailed discussion with [facility] the patient and/or guardian regarding: the historical points, exam findings, and any diagnostic results supporting the discharge/admit diagnosis, lab results, the need for outpatient follow up. ED course: Wound care evaluated the patient. States after their evaluation there does not appear to be any active wound. The graft was removed. Does not recommend antibiotics. Patient is alert nontoxic in appearance. Patient will be discharged and otherwise given strict return precautions. Patient and family understood and agreed with plan of care.. 12/12 11:54 Order name: CBC with Diff; Complete Time: 13:50 [facility] 12/12 11:54 Order name: CMP; Complete Time: 13:50 [facility] 12/12 11:54 Order name: Lactate; Complete Time: 13:50 [facility] 12/12 11:54 Order name: Procalcitonin; Complete Time: 13:50 [facility] 12/12 11:55 Order name: US Extremity Venous W Compression Geraldo; Complete Time: 12:43 [facility] 12/12 12:02 Order name: [facility]; Complete Time: 14:32 [facility] 12/12 11:54 Order name: Saline Lock; Complete Time: 12:57 [facility] Administered Medications: No medications were administered Disposition: 15:30 Co-signature as Attending Physician, Pierce Bettencourt MD I agree with the assessment and rn plan of care. Attestation: The patient's history, exam findings, diagnostics, and a summary of any interventions or procedures was reviewed in detail with Shravan JOHNSTON. Disposition Summary: 12/12/20 14:18 Discharge Ordered Location: Home jmm Condition: Stable jmm Diagnosis - Wound Evaluation jmm - Person with feared health complaint in whom no diagnosis is made jmm Followup: jmm - With: Private Physician - When: 2 - 3 days - Reason: Recheck today's complaints, Continuance of care, Re-evaluation by your physician Discharge Instructions: - Discharge Summary Sheet jmm - Peripheral Edema jmm Forms: - Medication Reconciliation Form jmm - Thank You Letter jmm - Antibiotic Education jmm - Prescription Opioid Use jmm Signatures: Dispatcher [employer] EDShravan Hawk PA PA jmm Nieto, Roman, MD MD rn Tahir Calderon RN RN ll1
[2020-12-12 14:49] VITALS: TEMP 97.4
[2020-12-12 14:50] VITALS: BP 125/53; O2SAT 95
--- OUTSIDE RECORDS SUMMARY | 2020-12-22 09:41 | XMS REPORT | Continuity of Care Document ---
:1940 Author Organization [facility] t Address [address] [place] [address] Care Team Providers Name Role Phone Batool LAURENT Primary Care Physician Pob, Lab Main Attending Clinician Unavailable Prudence LAURENT Attending Clinician Batool LAURENT Attending Clinician PRUDENCE Attending Clinician Unavailable Doctor Unassigned, Name Attending Clinician Unavailable Odin Alejandro DO Attending Clinician Davide LAURENT, K.H. Attending Clinician Teresa Christine Attending Clinician DAVIDE, K.H. Attending Clinician Unavailable Kathy DAIGLE, L Attending Clinician Unavailable Cowan MOVIE EDITOR Attending Clinician Paras Nino MD Attending Clinician Owen Patton DO Attending Clinician Stuart ATWOOD Attending Clinician Unavailable Harika DAIGLE Attending Clinician Erick MOVIE EDITOR Attending Clinician 2, Lab Attending Clinician Unavailable Joana LAURENT Attending Clinician Odin ROYAL Attending Clinician Unavailable Nurse, Urgent Care Attending Clinician Unavailable Theo MOVIE EDITOR Attending Clinician THEO Attending Clinician Unavailable RASTAM Attending Clinician Unavailable Lisa LAURENT, S Attending Clinician Rl DAIGLE, M Attending Clinician Margo VALDEZ R Attending Clinician Vianey REEVES Attending Clinician Tech, Cardio Vascular Attending Clinician Unavailable Paras Nino MD Admitting Clinician Joana LAURENT Admitting Clinician TATE Admitting Clinician Unavailable Vianey REEVES Admitting Clinician Payers Payer Name Policy Type Policy Number Effective Date Expiration Date Apolinar GIFFORD [id number] 2018 PLUS CLASSIC/VALUE 00:00:00 Problems Condition Condition Condition Status Onset Resolution Last Treating Co mments Source Name Details Category Date Date Treatment Clinician Date COVID-19 COVID-19 Disease Active Unive rs virus virus 3-12 [place] [facility] Dyslipidem Dyslipidem Disease Active 2020- U nivers ia ia 2-13 ity of 00:: [address] Lymphedema Lymphedema Disease Active 2019- U nivers 2-13 ity of 00:00: [address] Stage 3 Stage 3 Disease Active 2019- Univers chronic chronic 2-13 ity of kidney kidney 00:00: [place] disease disease [facility] CHF CHF Disease Active 2018-02 Univers exacerbati exacerbati 1-08 it y of on on 00:00: [address] Branch Bilateral Bilateral Disease Active Uni vers lower leg lower leg 8-13 ity of cellulitis cellulitis 00:00: [place] 00 [facility] Bilateral Bilateral Disease Active Uni vers lower leg lower leg 8-13 ity of cellulitis cellulitis 00:[place] Lower Lower Disease Active Univers extremity extremity 4-23 ity of pain pain 00:00: [place] 00 Medical Branch Coronary Coronary Disease Active Unive rs artery artery 4-23 ity of disease disease 00:00: [place] involving involving 00 [facility] coronary coronary artery of artery of [facility] heart heart without without angina angina pectoris pectoris Coronary Coronary Disease Active Unive rs artery artery 4-23 ity of disease disease 00:00: [place] involving involving 00 Medi [facility] Branch coronary coronary artery of artery of [facility] heart heart without without angina angina pectoris pectoris Acute on Acute on Disease Active Unive rs chronic chronic 4-23 ity of diastolic diastolic 00:00: [place] bear congestive congestive 00 Me dical heart heart Branch failure failure Morbid Morbid Disease Active Univers obesity obesity 4-23 ity of 00:00: [place] 00 Medical Branch Type 2 Type 2 Disease Active Univers diabetes diabetes 4-23 ity of mellitus mellitus 00:00: [place] without without 00 Medical complicati complicati Br anch on, on, without without long-term long-term current current use of use of insulin insulin Essential Essential Disease Active Uni vers hypertensi hypertensi 4-23 it y of on on 00:00: [place] 00 Medical Branch Bilateral Bilateral Disease Active Uni vers leg edema leg edema 4-22 ity of 00:00: [place] 00 Medical Branch Cellulitis Cellulitis Disease Active U nivers 4-22 ity of 00:00: [place] 00 Medical Branch Bilateral Bilateral Disease Active Uni vers leg edema leg edema 4-22 ity of 00:00: [place] 00 Medical Branch Allergies, Adverse Reactions, Alerts Allergy Allergy Status Severity Reaction(s) Onset Inactive Treating Comm ents Source Name Type Date Date Clinician IODINE DRUG Active N/V Univers INGREDI 4-22 ity of 00:00: [place] 00 Medical Branch PREDNISO DRUG Active Other-Cmnt Univ ers NE INGREDI 4-22 ity of 00:00: [place] 00 Medical Branch Predniso Propensi Active Other - See Patient Univers ne ty to comments 05-31 states ity of adverse 00:00: "it makes [place] reaction 00 my sugar Medica l s go up to Branch 500" Iodine Propensi Active Nausea Univers ty to and/or 05-31 ity of adverse Vomiting 00:00: [place] reaction 00 Medical s Branch Social History Social Habit Start Date Stop Date Quantity Comments Source Exposure to Not sure [facility] SARS-CoV-2 [facility] (event) Branch Alcohol intake 2020-10-21 2020-10-21 Current University of 00:00:00 00:00:00 non-drinker of [facility] alcohol Branch (finding) Tobacco use and 2018-05-31 2018-05-31 Never used Universit y of exposure 00:00:00 00:00:00 [facility] [place] [facility] Sex Ass[birth year] At [birth year] Universit y of 00:00:00 00:00:00 [facility] [place] [facility] Smoking Status Start Date Stop Date Source Former smoker 2018-05-31 00:00:00 2018-05-31 00:00:00 Universi ty of [facility] [place] [facility] Medications Ordered Filled Start Stop Current Ordering Indication Dosage Frequency Signature Comments Components Source Medication Medication Date Date Medication? Clinician (SIG) Name Name acetaminoph 2020- No 650mg 650 mg, U nivers en 10-21 Oral, ity of (TYLENOL) 15:15: 14:06 ONCE, 1 [place] tablet 650 00 :00 dose, Sun Medi amarilis mg 10/21/20 at Branch 1015, ANUSHA acetaminoph 2020- No 650mg 650 mg, U nivers en 10-21 Oral, ity of (TYLENOL) 15:15: 14:06 ONCE, 1 [place] 650 00 :00 dose, Sun Medi amarilis mg 10/21/20 at Branch 1015, ANUSHA carvediloL 2020- Yes [id number] 3.125mg Take 1 Univers 3.125 mg 8-25 11-24 tablet by ity o f tablet 00:00: 05:59 mouth 2 [place] 00 :00 (two) Medical times Branch daily for 90 days. carvediloL 2020- Yes [id number] 3.125mg Take 1 Univers 3.125 mg 8-25 11-24 tablet by ity o f tablet 00:00: 05:59 mouth 2 [place] 00 :00 (two) [facility] daily for 90 days. carvediloL 2020- Yes [id number] 3.125mg Take 1 Univers 3.125 mg 8-25 11-24 tablet by ity o f tablet 00:00: 05:59 mouth 2 [place] 00 :00 (two) [facility] daily for 90 days. carvediloL 2020- Yes [id number] 3.125mg Take 1 Univers 3.125 mg 8-25 11-24 tablet by ity o f tablet 00:00: 05:59 mouth 2 [place] 00 :00 ([facility]) [facility] daily for 90 days. carvediloL 2020- Yes [id number] 3.125mg Take 1 Univers 3.125 mg 8-25 11-24 tablet by ity o f tablet 00:00: 05:59 mouth 2 [place] 00 :00 ([facility]) [facility] daily for 90 days. carvediloL 2020- Yes [id number] 3.125mg Take 1 Univers 3.125 mg 8-25 11-24 tablet by ity o f tablet 00:00: 05:59 mouth 2 [place] 00 :00 ([facility]) [facility] daily for 90 days. levoFLOXaci 2020- No 750mg 750 mg, IV Univers n in D5W 05-11 [facility], ity of (LEVAQUIN) 01:45: 02:28 ONCE, 1 [place] as 750 mg/150 00 :00 dose, [place] Medi amarilis mL 05/10/20 at [facility] 2044, 150 750 mg mL
Reas on for Anti-Infec tive: Documented Infection< br>Documen teri Infection Site: Urine
D uration of Therapy: Other (see Comments) levoFLOXaci 2020- No [id number] 750mg Take 1 Univers n 05-10 tablet by ity of (LEVAQUIN) 00:00: 04:59 mouth [place] 750 mg 00 :00 every 24 Medical tablet ([facility] ur) hours for 7 days. peg-electro 2020- No [id number] 4000mL Take 4,000 [address] 4- 04-02 mL by ity of 236-22.74-6 00:00: 04:59 mouth once [place] .74 -5.86 00 :00 now for 1 Medic al gram dose. Branch solution HYDROcodone 0 Yes [id number] 1{tbl} Take 1 Un carlos manuel -acetaminop 3-19 tablet by ity of hen (PreApps) 01:35: mouth [place] 7.5-325 mg 57 every 8 Medica l per tablet (eight) Branch hours as needed for Pain. Indication s: chronic pain HYDROcodone 2020- Yes [id number] 1{tbl} Take 1 Un carlos manuel -acetaminop 3-19 tablet by ity of hen (PreApps) 01:35: mouth [place] 7.5-325 mg 57 every 8 Medica l per tablet (eight) Branch hours as needed for Pain. Indication s: chronic pain HYDROcodone Yes 2745 1{tbl} Take 1 Un carlos manuel -acetaminop 3-19 tablet by ity of hen (AB TastyCO) 01:35: mouth [place] 7.5-325 mg 57 every 8 Medica l per tablet (eight) Branch hours as needed for Pain. Indication s: chronic pain HYDROcodone 2020- Yes 2745 1{tbl} Take 1 Un carlos manuel -acetaminop 3-19 tablet by ity of hen (NORCO) 01:35: mouth [place] 7.5-325 mg 57 every 8 Medica l per tablet (eight) Branch hours as needed for Pain. Indication s: chronic pain HYDROcodone 0 Yes 2745 1{tbl} Take 1 Un carlos manuel -acetaminop 3-19 tablet by ity of hen (NORCO) 01:35: mouth [place] 7.5-325 mg 57 every 8 Medica l per tablet (eight) Branch hours as needed for Pain. Indication s: chronic pain HYDROcodone 0 Yes 2745 1{tbl} Take 1 Un carlos manuel -acetaminop 3-19 tablet by ity of hen (AB TastyCO) 01:35: mouth [place] 7.5-325 mg 57 every 8 Medica l per tablet (eight) Branch hours as needed for Pain. Indication s: chronic pain HYDROcodone 2020-0 Yes 2745 1{tbl} Take 1 Un carlos manuel -acetaminop 3-19 tablet by ity of hen (NORCO) 01:35: mouth [place] 7.5-325 mg 57 every 8 Medica l per tablet (eight) Branch hours as needed for Pain. Indication s: chronic pain HYDROcodone 2020-0 Yes 2745 1{tbl} Take 1 Un carlos manuel -acetaminop 3-19 tablet by ity of hen (NORCO) 01:35: mouth [place] 7.5-325 mg 57 every 8 Medica l per tablet (eight) Branch hours as needed for Pain. Indication s: chronic pain HYDROcodone 2020-0 Yes [id number] 1{tbl} Take 1 Un carlos manuel -acetaminop 3-19 tablet by ity of hen (NORCO) 01:35: mouth [place] 7.5-325 mg 57 every 8 Medica l per tablet (eight) Branch hours as needed for Pain. Indication s: chronic pain HYDROcodone 2020-0 Yes 2745 1{tbl} Take 1 Un carlos manuel -acetaminop 3-18 tablet by ity of hen (NORCO) 20:35: mouth [place] 7.5-325 mg 57 every 8 Medica l per tablet (eight) Branch hours as needed for Pain. Indication s: chronic pain HYDROcodone 2020-0 Yes 2745 1{tbl} Take 1 Un carlos manuel -acetaminop 3-18 tablet by ity of hen (NORCO) 20:35: mouth [place] 7.5-325 mg 57 every 8 Medica l per tablet (eight) Branch hours as needed for Pain. Indication s: chronic pain SITagliptin 2020-0 2020- No 25mg Take 25 mg Univers 25 mg 3-18 03-18 by mouth ity of tablet 17:08: 00:00 daily. [place] 38 :00 Medical Branch insulin NPH 0 Yes 18U 18 Units, U nivers (HUMULIN N) 3-18 Subcutaneo it y of injection 14:00: us, [place] 18 Units 00 QAM+HS, Medical First dose Branch (after last modificati on) on [place] 04/26/20 at 0900, Until Discontinu ed, Routine sennosides 0 Yes 8.6mg 8.6 mg, Uni vers (SENOKOT) 3-18 Oral, BID, ity of tablet 8.6 01:00: First dose [place] mg 00 (after Medical last Branch modificati on) on Thu04/25/20 at 2000, Until Discontinu ed, Routine sennosides- Yes [id number] 1{tbl} Take 1 Univers docusate 3-18 tablet by ity of sodium 00:00: mouth [place] 8.6-50 mg 00 daily. Medical per tablet Branch KCL 20 mEq Yes [id number] 40meq Take 2 Univers tablet 3-18 [id number] tablets by ity o f 00:00: mouth [place] 00 daily. Medical Branch Insulin Asp Yes [id number] 30U inject 30 Univers Prt-Insulin 3-18 [id number] Units ity o f Aspart 00:00: under the [place] (NOVOLOG 00 skin 2 Medical MIX 70-30) (two) Branch 100 unit/mL times (70-30) daily with injection meals. If not eating breakfast or dinner: Skip dose. Do not recommend skipping doses frequently . If eating half the meal or if blood sugar between 80-130 give HALF the dose If blood sugar less than 80 : Eat a meal and recheck. Give half dose of insulin once blood sugar over 150. 2) Check and write down your blood sugar readings daily to help you make adjustment s to the insulin dose (bring this record to your PCP). insulin Yes [id number] 5U inject 5 Univers aspart 3-18 [id number] Units ity of U-100 00:00: under the [place] (NOVOLOG 00 skin 3 Medical FLEXPEN (three) Branch U-100 times INSULIN) daily 100 unit/mL before (3 mL) meals. injection Please check blood glucose level before. Blood glucose 150 - 180 give 1 units. Blood glucose 181 - 210 give 2 units. Blood glucose 211 - 240 give 3 units. Blood glucose 241 - 270 give 4units. Blood glucose 271 - 300 give 5units. If blood sugar >300, give 6 units. Recheck blood sugar in 3 hours. If blood sugar <70, DO NOT GIVE INSULIN, and make sure to eat a snack/drin k juice and recheck. metFORMIN Yes [id number] 500mg Take 1 Univers 500 mg 3-18 [id number] tablet by ity of tablet 00:00: mouth 2 [place] 00 (two) Medical times Branch daily with meals. bumetanide Yes [id number] 3mg Take 3 Univers 1 mg tablet 3-18 [id number] tablets by ity of 00:00: mouth 2 [place] (two) Medical times Branch daily. spironolact Yes [id number] 25mg Take 1 Univers one 25 mg 3-18 [id number] tablet by ity of tablet 00:00: mouth 2 [place] (two) Medical times Branch daily. albuterol Yes [id number] 2{puff} Inhale 2 Univers 90 3-18 [id number] Puffs ity of mcg/actuati 00:00: every 6 Rj as on inhaler 00 (six) Medical hours as Branch needed for Wheezing, Shortness of Breath, Bronchospa sm or Chest tightness. simvastatin Yes [id number] 40mg Take 1 Univers 40 mg 3-18 [id number] tablet by ity of tablet 00:00: mouth [place] 00 daily. Medical Branch Magnesium Yes [id number] 400mg Take 400 Univers Oxide 420 3-18 mg by ity of mg Tab 00:00: mouth [place] (two) Medical times Branch daily. KCL 20 mEq Yes [id number] 40meq Take 2 Univers tablet 3-18 [id number] tablets by ity o f 00:00: mouth [place] 00 daily. Medical Branch Insulin Asp Yes [id number] 30U inject 30 Univers Prt-Insulin 3-18 [id number] Units ity o f Aspart 00:00: under the [place] (NOVOLOG 00 skin 2 Medical MIX 70-30) (two) Branch 100 unit/mL times (70-30) daily with injection meals. If not eating breakfast or dinner: Skip dose. Do not recommend skipping doses frequently . If eating half the meal or if blood sugar between 80-130 give HALF the dose If blood sugar less than 80 : Eat a meal and recheck. Give half dose of insulin once blood sugar over 150. 2) Check and write down your blood sugar readings daily to help you make adjustment s to the insulin dose (bring this record to your PCP). sennosides- Yes [id number] 1{tbl} Take 1 Univers docusate 3-18 tablet by ity of sodium 00:00: mouth [place] 8.6-50 mg 00 daily. Medical per tablet Branch KCL 20 mEq Yes [id number] 40meq Take 2 Univers tablet 3-18 [id number] tablets by ity o f 00:00: mouth 00 daily. Medical Branch Insulin Asp Yes [id number] 30U inject 30 Univers Prt-Insulin 3-18 [id number] Units ity o f Aspart 00:00: under the [place] (NOVOLOG 00 skin 2 Medical MIX 70-30) (two) Branch 100 unit/mL times (70-30) daily with injection meals. If not eating breakfast or dinner: Skip dose. Do not recommend skipping doses frequently . If eating half the meal or if blood sugar between 80-130 give HALF the dose If blood sugar less than 80 : Eat a meal and recheck. Give half dose of insulin once blood sugar over 150. 2) Check and write down your blood sugar readings daily to help you make adjustment s to the insulin dose (bring this record to your PCP). insulin Yes [id number] 5U inject 5 Univers aspart 3-18 [id number] Units ity of U-100 00:00: under the [place] (NOVOLOG 00 skin 3 Medical FLEXPEN (three) Branch U-100 times INSULIN) daily 100 unit/mL before (3 mL) meals. injection Please check blood glucose level before. Blood glucose 150 - 180 give 1 units. Blood glucose 181 - 210 give 2 units. Blood glucose 211 - 240 give 3 units. Blood glucose 241 - 270 give 4units. Blood glucose 271 - 300 give 5units. If blood sugar >300, give 6 units. Recheck blood sugar in 3 hours. If blood sugar <70, DO NOT GIVE INSULIN, and make sure to eat a snack/drin k juice and recheck. metFORMIN Yes [id number] 500mg Take 1 Univers 500 mg 3-18 [id number] tablet by ity of tablet 00:00: mouth (two) Medical times Branch daily with meals. bumetanide Yes [id number] 3mg Take 3 Univers 1 mg tablet 3-18 [id number] tablets by ity of 00:00: mouth 2 (two) Medical times Branch daily. spironolact Yes [id number] 25mg Take 1 Univers one 25 mg 3-18 [id number] tablet by ity of tablet 00:00: mouth 2 [place] (two) Medical times Branch daily. albuterol Yes [id number] 2{puff} Inhale 2 Univers 90 3-18 [id number] Puffs ity of mcg/actuati 00:00: every 6 Rj as on inhaler 00 (six) Medical hours as Branch needed for Wheezing, Shortness of Breath, Bronchospa sm or Chest tightness. insulin Yes [id number] 5U inject 5 Univers aspart 3-18 [id number] Units ity of U-100 00:00: under the [place] (NOVOLOG 00 skin 3 Medical FLEXPEN (three) Branch U-100 times INSULIN) daily 100 unit/mL before (3 mL) meals. injection Please check blood glucose level before. Blood glucose 150 - 180 give 1 units. Blood glucose 181 - 210 give 2 units. Blood glucose 211 - 240 give 3 units. Blood glucose 241 - 270 give 4units. Blood glucose 271 - 300 give 5units. If blood sugar >300, give 6 units. Recheck blood sugar in 3 hours. If blood sugar <70, DO NOT GIVE INSULIN, and make sure to eat a snack/drin k juice and recheck. simvastatin Yes [id number] 40mg Take 1 Univers 40 mg 3-18 [id number] tablet by ity of tablet 00:00: mouth [place] daily. Medical Branch Magnesium 2020- Yes [id number] 400mg Take 400 Univers Oxide 420 3-18 mg by ity of mg Tab 00:00: mouth [place] (two) Medical times Branch daily. metFORMIN Yes [id number] 500mg Take 1 Univers 500 mg 3-18 [id number] tablet by ity of tablet 00:00: mouth [place] (two) Medical times Branch daily with meals. bumetanide Yes [id number] 3mg Take 3 Univers 1 mg tablet 3-18 [id number] tablets by ity of 00:00: mouth [place] (two) Medical times Branch daily. spironolact Yes [id number] 25mg Take 1 Univers one 25 mg 3-18 [id number] tablet by ity of tablet 00:00: mouth [address] [place] [address] (two) Medical times Branch daily. albuterol Yes [id number] 2{puff} Inhale 2 Univers 90 3-18 [id number] Puffs ity of mcg/actuati 00:00: every 6 Rj as on inhaler 00 (six) Medical hours as Branch needed for Wheezing, Shortness of Breath, Bronchospa sm or Chest tightness. simvastatin Yes [id number] 40mg Take 1 Univers 40 mg 3-18 [id number] tablet by ity of tablet 00:00: mouth [place] 00 daily. Medical Branch Magnesium Yes [id number] 400mg Take 400 Univers Oxide 420 3-18 mg by ity of mg Tab 00:00: mouth 2 [place] 00 (two) Medical times Branch daily. sennosides- Yes [id number] 1{tbl} Take 1 Univers docusate 3-18 tablet by ity of sodium 00:00: mouth [place] 8.6-50 mg 00 daily. Medical per tablet Branch KCL 20 mEq Yes [id number] 40meq Take 2 Univers tablet 3-18 [id number] tablets by ity o f 00:00: mouth [place] 00 daily. Medical Branch Insulin Asp Yes [id number] 30U inject 30 Univers Prt-Insulin 3-18 [id number] Units ity o f Aspart 00:00: under the [place] (NOVOLOG 00 skin 2 Medical MIX 70-30) (two) Branch 100 unit/mL times (70-30) daily with injection meals. If not eating breakfast or dinner: Skip dose. Do not recommend skipping doses frequently . If eating half the meal or if blood sugar between 80-130 give HALF the dose If blood sugar less than 80 : Eat a meal and recheck. Give half dose of insulin once blood sugar over 150. 2) Check and write down your blood sugar readings daily to help you make adjustment s to the insulin dose (bring this record to your PCP). insulin Yes [id number] 5U inject 5 Univers aspart 3-18 [id number] Units ity of U-100 00:00: under the [place] (NOVOLOG 00 skin 3 Medical FLEXPEN (three) Branch U-100 times INSULIN) daily 100 unit/mL before (3 mL) meals. injection Please check blood glucose level before. Blood glucose 150 - 180 give 1 units. Blood glucose 181 - 210 give 2 units. Blood glucose 211 - 240 give 3 units. Blood glucose 241 - 270 give 4units. Blood glucose 271 - 300 give 5units. If blood sugar >300, give 6 units. Recheck blood sugar in 3 hours. If blood sugar <70, DO NOT GIVE INSULIN, and make sure to eat a snack/drin k juice and recheck. metFORMIN Yes [id number] 500mg Take 1 Univers 500 mg 3-18 [id number] tablet by ity of tablet 00:00: mouth 2 [place] (two) Medical times Branch daily with meals. bumetanide Yes [id number] 3mg Take 3 Univers 1 mg tablet 3-18 [id number] tablets by ity of 00:00: mouth 2 [place] (two) Medical times Branch daily. spironolact Yes [id number] 25mg Take 1 Univers one 25 mg 3-18 [id number] tablet by ity of tablet 00:00: mouth [place] (two) Medical times Branch daily. albuterol Yes [id number] 2{puff} Inhale 2 Univers 90 3-18 [id number] Puffs ity of mcg/actuati 00:00: every 6 Rj as on inhaler 00 (six) Medical hours as Branch needed for Wheezing, Shortness of Breath, Bronchospa sm or Chest tightness. simvastatin Yes [id number] 40mg Take 1 Univers 40 mg 3-18 [id number] tablet by ity of tablet 00:00: mouth [place] 00 daily. Medical Branch Magnesium Yes [id number] 400mg Take 400 Univers Oxide 420 3-18 mg by ity of mg Tab 00:00: mouth 2 [place] (two) Medical times Branch daily. sennosides- Yes [id number] 1{tbl} Take 1 Univers docusate 3-18 tablet by ity of sodium 00:00: mouth [place] 8.6-50 mg 00 daily. Medical per tablet Branch KCL 20 mEq Yes [id number] 40meq Take 2 Univers tablet 3-18 [id number] tablets by ity o f 00:00: mouth [place] 00 daily. Medical Branch Insulin Asp Yes [id number] 30U inject 30 Univers Prt-Insulin 3-18 [id number] Units ity o f Aspart 00:00: under the [place] (NOVOLOG 00 skin 2 Medical MIX 70-30) (two) Branch 100 unit/mL times (70-30) daily with injection meals. If not eating breakfast or dinner: Skip dose. Do not recommend skipping doses frequently . If eating half the meal or if blood sugar between 80-130 give HALF the dose If blood sugar less than 80 : Eat a meal and recheck. Give half dose of insulin once blood sugar over 150. 2) Check and write down your blood sugar readings daily to help you make adjustment s to the insulin dose (bring this record to your PCP). insulin Yes [id number] 5U inject 5 Univers aspart 3-18 [id number] Units ity of U-100 00:00: under the [place] (NOVOLOG 00 skin 3 Medical FLEXPEN (three) Branch U-100 times INSULIN) daily 100 unit/mL before (3 mL) meals. injection Please check blood glucose level before. Blood glucose 150 - 180 give 1 units. Blood glucose 181 - 210 give 2 units. Blood glucose 211 - 240 give 3 units. Blood glucose 241 - 270 give 4units. Blood glucose 271 - 300 give 5units. If blood sugar >300, give 6 units. Recheck blood sugar in 3 hours. If blood sugar <70, DO NOT GIVE INSULIN, and make sure to eat a snack/drin k juice and recheck. metFORMIN Yes [id number] 500mg Take 1 Univers 500 mg 3-18 [id number] tablet by ity of tablet 00:00: mouth 2 [place] [address] (two) Medical times Branch daily with meals. bumetanide Yes [id number] 3mg Take 3 Univers 1 mg tablet 3-18 [id number] tablets by ity of 00:00: mouth 2 [place] [address] (two) Medical times Branch daily. spironolact Yes [id number] 25mg Take 1 Univers one 25 mg 3-18 [id number] tablet by ity of tablet 00:00: mouth 2 [place] [address] (two) Medical times Branch daily. albuterol Yes [id number] 2{puff} Inhale 2 Univers 90 3-18 [id number] Puffs ity of mcg/actuati 00:00: every 6 Rj as on inhaler 00 (six) Medical hours as Branch needed for Wheezing, Shortness of Breath, Bronchospa sm or Chest tightness. simvastatin Yes [id number] 40mg Take 1 Univers 40 mg 3-18 [id number] tablet by ity of tablet 00:00: mouth [place] 00 daily. Medical Branch Magnesium Yes [id number] 400mg Take 400 Univers Oxide 420 3-18 mg by ity of mg Tab 00:00: mouth 2 [place] 00 (two) Medical times Branch daily. sennosides- Yes [id number] 1{tbl} Take 1 Univers docusate 3-18 tablet by ity of sodium 00:00: mouth [place] 8.6-50 mg 00 daily. Medical per tablet Branch KCL 20 mEq Yes [id number] 40meq Take 2 [facility] tablet 3-18 [id number] tablets by ity o f 00:00: mouth [place] 00 daily. Medical Branch Insulin Asp Yes [id number] 30U inject 30 [facility] Prt-Insulin 3-18 [id number] Units ity o f Aspart 00:00: under the [place] (NOVOLOG 00 skin 2 Medical MIX 70-30) (two) Branch 100 unit/mL times (70-30) daily with injection meals. If not eating breakfast or dinner: Skip dose. Do not recommend skipping doses frequently . If eating half the meal or if blood sugar between 80-130 give HALF the dose If blood sugar less than 80 : Eat a meal and recheck. Give half dose of insulin once blood sugar over 150. 2) Check and write down your blood sugar readings daily to help you make adjustment s to the insulin dose (bring this record to your PCP). insulin Yes [id number] 5U inject 5 [facility] aspart 3-18 [id number] Units ity of U-100 00:00: under the [place] (NOVOLOG 00 skin 3 Medical FLEXPEN (three) Branch U-100 times INSULIN) daily 100 unit/mL before (3 mL) meals. injection Please check blood glucose level before. Blood glucose 150 - 180 give 1 units. Blood glucose 181 - 210 give 2 units. Blood glucose 211 - 240 give 3 units. Blood glucose 241 - 270 give 4units. Blood glucose 271 - 300 give 5units. If blood sugar >300, give 6 units. Recheck blood sugar in 3 hours. If blood sugar <70, DO NOT GIVE INSULIN, and make sure to eat a snack/drin k juice and recheck. metFORMIN Yes [id number] 500mg Take 1 [facility] 500 mg 3-18 [id number] tablet by ity of tablet 00:00: mouth 2 [place] 00 (two) Medical times Branch daily with meals. bumetanide Yes [id number] 3mg Take 3 [facility] 1 mg tablet 3-18 [id number] tablets by ity of 00:00: mouth 2 [place] (two) Medical times Branch daily. spironolact Yes [id number] 25mg Take 1 [facility] one 25 mg 3-18 [id number] tablet by ity of tablet 00:00: mouth 2 [place] (two) Medical times Branch daily. albuterol Yes [id number] 2{puff} Inhale 2 [facility] 90 3-18 [id number] Puffs ity of mcg/actuati 00:00: every 6 Rj as on inhaler 00 (six) Medical hours as Branch needed for Wheezing, Shortness of Breath, Bronchospa sm or Chest tightness. simvastatin Yes [id number] 40mg Take 1 [facility] 40 mg 3-18 [id number] tablet by ity of tablet 00:00: mouth [place] 00 daily. Medical Branch Magnesium Yes [id number] 400mg Take 400 [facility] Oxide 420 3-18 mg by ity of mg Tab 00:00: mouth [place] (two) Medical times Branch daily. sennosides- Yes [id number] 1{tbl} Take 1 [facility] docusate 3-18 tablet by ity of sodium 00:00: mouth [place] 8.6-50 mg 00 daily. Medical per tablet Branch KCL 20 mEq Yes [id number] 40meq Take 2 [facility] tablet 3-18 [id number] tablets by ity o f 00:00: mouth [place] 00 daily. Medical Branch Insulin Asp Yes [id number] 30U inject 30 [facility] Prt-Insulin 3-18 [id number] Units ity o f Aspart 00:00: under the [place] (NOVOLOG 00 skin 2 Medical MIX 70-30) (two) Branch 100 unit/mL times (70-30) daily with injection meals. If not eating breakfast or dinner: Skip dose. Do not recommend skipping doses frequently . If eating half the meal or if blood sugar between 80-130 give HALF the dose If blood sugar less than 80 : Eat a meal and recheck. Give half dose of insulin once blood sugar over 150. 2) Check and write down your blood sugar readings daily to help you make adjustment s to the insulin dose (bring this record to your PCP). insulin Yes [id number] 5U inject 5 [facility] aspart 3-18 [id number] Units ity of U-100 00:00: under the [place] (NOVOLOG 00 skin 3 Medical FLEXPEN (three) Branch U-100 times INSULIN) daily 100 unit/mL before (3 mL) meals. injection Please check blood glucose level before. Blood glucose 150 - 180 give 1 units. Blood glucose 181 - 210 give 2 units. Blood glucose 211 - 240 give 3 units. Blood glucose 241 - 270 give 4units. Blood glucose 271 - 300 give 5units. If blood sugar >300, give 6 units. Recheck blood sugar in 3 hours. If blood sugar <70, DO NOT GIVE INSULIN, and make sure to eat a snack/drin k juice and recheck. metFORMIN Yes [id number] 500mg Take 1 [facility] 500 mg 3-18 [id number] tablet by ity of tablet 00:00: mouth [place] (two) Medical times Branch daily with meals. bumetanide Yes [id number] 3mg Take 3 [facility] 1 mg tablet 3-18 [id number] tablets by ity of 00:00: mouth [address] [place] [address] (two) Medical times Branch daily. spironolact Yes [id number] 25mg Take 1 [facility] one 25 mg 3-18 [id number] tablet by ity of tablet 00:00: mouth [address] [place] [address] (two) Medical times Branch daily. albuterol Yes [id number] 2{puff} Inhale 2 [facility] 90 3-18 [id number] Puffs ity of mcg/actuati 00:00: every 6 Rj as on inhaler 00 (six) Medical hours as Branch needed for Wheezing, Shortness of Breath, Bronchospa sm or Chest tightness. simvastatin Yes [id number] 40mg Take 1 [facility] 40 mg 3-18 [id number] tablet by ity of tablet 00:00: mouth [place] daily. Medical Branch Magnesium Yes [id number] 400mg Take 400 [facility] Oxide 420 3-18 mg by ity of mg Tab 00:00: mouth [place] 00 (two) Medical times Branch daily. sennosides- Yes [id number] 1{tbl} Take 1 [facility] docusate 3-18 tablet by ity of sodium 00:00: mouth [place] 8.6-50 mg 00 daily. Medical per tablet Branch KCL 20 mEq Yes [id number] 40meq Take 2 [facility] tablet 3-18 [id number] tablets by ity o f 00:00: mouth [place] 00 daily. Medical Branch Insulin Asp Yes [id number] 30U inject 30 [facility] Prt-Insulin 3-18 [id number] Units ity o f Aspart 00:00: under the [place] (NOVOLOG 00 skin 2 Medical MIX 70-30) (two) Branch 100 unit/mL times (70-30) daily with injection meals. If not eating breakfast or dinner: Skip dose. Do not recommend skipping doses frequently . If eating half the meal or if blood sugar between 80-130 give HALF the dose If blood sugar less than 80 : Eat a meal and recheck. Give half dose of insulin once blood sugar over 150. 2) Check and write down your blood sugar readings daily to help you make adjustment s to the insulin dose (bring this record to your PCP). insulin Yes [id number] 5U inject 5 [facility] aspart 3-18 [id number] Units ity of U-100 00:00: under the [place] (NOVOLOG 00 skin 3 Medical FLEXPEN (three) Branch U-100 times INSULIN) daily 100 unit/mL before (3 mL) meals. injection Please check blood glucose level before. Blood glucose 150 - 180 give 1 units. Blood glucose 181 - 210 give 2 units. Blood glucose 211 - 240 give 3 units. Blood glucose 241 - 270 give 4units. Blood glucose 271 - 300 give 5units. If blood sugar >300, give 6 units. Recheck blood sugar in 3 hours. If blood sugar <70, DO NOT GIVE INSULIN, and make sure to eat a snack/drin k juice and recheck. metFORMIN Yes [id number] 500mg Take 1 [facility] 500 mg 3-18 [id number] tablet by ity of tablet 00:00: mouth 2 [place] 00 (two) Medical times Branch daily with meals. bumetanide Yes [id number] 3mg Take 3 [facility] 1 mg tablet 3-18 [id number] tablets by ity of 00:00: mouth 2 [place] 00 (two) Medical times Branch daily. spironolact Yes [id number] 25mg Take 1 [facility] one 25 mg 3-18 [id number] tablet by ity of tablet 00:00: mouth 2 [place] 00 (two) Medical times Branch daily. albuterol Yes [id number] 2{puff} Inhale 2 [facility] 90 3-18 [id number] Puffs ity of mcg/actuati 00:00: every 6 [place]j as on inhaler 00 (six) Medical hours as Branch needed for Wheezing, Shortness of Breath, Bronchospa sm or Chest tightness. simvastatin Yes [id number] 40mg Take 1 [facility] 40 mg 3-18 [id number] tablet by ity of tablet 00:00: mouth [place] 00 daily. Medical Branch Magnesium Yes [id number] 400mg Take 400 [facility] Oxide 420 3-18 mg by ity of mg Tab 00:00: mouth 2 [place] 00 (two) Medical times Branch daily. sennosides- Yes [id number] 1{tbl} Take 1 [facility] docusate 3-18 tablet by ity of sodium 00:00: mouth [place] 8.6-50 mg 00 daily. Medical per tablet Branch KCL 20 mEq Yes [id number] 40meq Take 2 [facility] tablet 3-18 [id number] tablets by ity o f 00:00: mouth [place] 00 daily. Medical Branch Insulin Asp Yes [id number] 30U inject 30 [facility] Prt-Insulin 3-18 [id number] Units ity o f Aspart 00:00: under the [place] (NOVOLOG 00 skin 2 Medical MIX 70-30) (two) Branch 100 unit/mL times (70-30) daily with injection meals. If not eating breakfast or dinner: Skip dose. Do not recommend skipping doses frequently . If eating half the meal or if blood sugar between 80-130 give HALF the dose If blood sugar less than 80 : Eat a meal and recheck. Give half dose of insulin once blood sugar over 150. 2) Check and write down your blood sugar readings daily to help you make adjustment s to the insulin dose (bring this record to your PCP). insulin Yes [id number] 5U inject 5 [facility] aspart 3-18 [id number] Units ity of U-100 00:00: under the [place] (NOVOLOG 00 skin 3 Medical FLEXPEN (three) Branch U-100 times INSULIN) daily 100 unit/mL before (3 mL) meals. injection Please check blood glucose level before. Blood glucose 150 - 180 give 1 units. Blood glucose 181 - 210 give 2 units. Blood glucose 211 - 240 give 3 units. Blood glucose 241 - 270 give 4units. Blood glucose 271 - 300 give 5units. If blood sugar >300, give 6 units. Recheck blood sugar in 3 hours. If blood sugar <70, DO NOT GIVE INSULIN, and make sure to eat a snack/drin k juice and recheck. metFORMIN Yes [id number] 500mg Take 1 [facility] 500 mg 3-18 [id number] tablet by ity of tablet 00:00: mouth 2 [place] (two) Medical times Branch daily with meals. bumetanide Yes [id number] 3mg Take 3 [facility] 1 mg tablet 3-18 [id number] tablets by ity of 00:00: mouth [address] [place] [address] (two) Medical times Branch daily. spironolact Yes [id number] 25mg Take 1 [facility] one 25 mg 3-18 [id number] tablet by ity of tablet 00:00: mouth [address] [place] [address] (two) Medical times Branch daily. albuterol Yes [id number] 2{puff} Inhale 2 [facility] 90 3-18 [id number] Puffs ity of mcg/actuati 00:00: every 6 [place] as on inhaler 00 (six) Medical hours as Branch needed for Wheezing, Shortness of Breath, Bronchospa sm or Chest tightness. simvastatin Yes [id number] 40mg Take 1 [facility] 40 mg 3-18 [id number] tablet by ity of tablet 00:00: mouth [place] 00 daily. Medical Branch Magnesium Yes [id number] 400mg Take 400 [facility] Oxide 420 3-18 mg by ity of mg Tab 00:00: mouth 2 [place] (two) Medical times Branch daily. sennosides- Yes [id number] 1{tbl} Take 1 [facility] docusate 3-18 tablet by ity of sodium 00:00: mouth [place] 8.6-50 mg 00 daily. Medical per tablet Branch KCL 20 mEq 2021-0 Yes [id number] 40meq Take 2 [facility] tablet 3-18 [id number] tablets by ity o f 00:00: mouth 00 daily. Medical Branch Insulin Asp Yes [id number] 30U inject 30 [facility] Prt-Insulin 3-18 [id number] Units ity o f Aspart 00:00: under the [place] (NOVOLOG 00 skin 2 Medical MIX 70-30) (two) Branch 100 unit/mL times (70-30) daily with injection meals. If not eating breakfast or dinner: Skip dose. Do not recommend skipping doses frequently . If eating half the meal or if blood sugar between 80-130 give HALF the dose If blood sugar less than 80 : Eat a meal and recheck. Give half dose of insulin once blood sugar over 150. 2) Check and write down your blood sugar readings daily to help you make adjustment s to the insulin dose (bring this record to your PCP). insulin Yes [id number] 5U inject 5 [facility] aspart 3-18 [id number] Units ity of U-100 00:00: under the [place] (NOVOLOG 00 skin 3 Medical FLEXPEN (three) Branch U-100 times INSULIN) daily 100 unit/mL before (3 mL) meals. injection Please check blood glucose level before. Blood glucose 150 - 180 give 1 units. Blood glucose 181 - 210 give 2 units. Blood glucose 211 - 240 give 3 units. Blood glucose 241 - 270 give 4units. Blood glucose 271 - 300 give 5units. If blood sugar >300, give 6 units. Recheck blood sugar in 3 hours. If blood sugar <70, DO NOT GIVE INSULIN, and make sure to eat a snack/drin k juice and recheck. metFORMIN Yes [id number] 500mg Take 1 [facility] 500 mg 3-18 [id number] tablet by ity of tablet 00:00: mouth (two) Medical times Branch daily with meals. bumetanide Yes [id number] 3mg Take 3 [facility] 1 mg tablet 3-18 [id number] tablets by ity of 00:00: mouth (two) Medical times Branch daily. spironolact Yes [id number] 25mg Take 1 [facility] one 25 mg 3-18 [id number] tablet by ity of tablet 00:00: mouth (two) Medical times Branch daily. albuterol Yes [id number] 2{puff} Inhale 2 [facility] 90 3-18 [id number] Puffs ity of mcg/actuati 00:00: every 6 Rj as on inhaler 00 (six) Medical hours as Branch needed for Wheezing, Shortness of Breath, Bronchospa sm or Chest tightness. simvastatin Yes [id number] 40mg Take 1 [facility] 40 mg 3-18 [id number] tablet by ity of tablet 00:00: mouth [place] 00 daily. Medical Branch Magnesium Yes [id number] 400mg Take 400 [facility] Oxide 420 3-18 mg by ity of mg Tab 00:00: mouth 2 [place] 00 (two) Medical times Branch daily. sennosides- Yes [id number] 1{tbl} Take 1 [facility] docusate 3-18 tablet by ity of sodium 00:00: mouth [place] 8.6-50 mg 00 daily. Medical per tablet Branch KCL 20 mEq Yes [id number] 40meq Take 2 [facility] tablet 3-18 [id number] tablets by ity o f 00:00: mouth [place] 00 daily. Medical Branch Insulin Asp Yes [id number] 30U inject 30 [facility] Prt-Insulin 3-18 [id number] Units ity o f Aspart 00:00: under the [place] (NOVOLOG 00 skin 2 Medical MIX 70-30) (two) Branch 100 unit/mL times (70-30) daily with injection meals. If not eating breakfast or dinner: Skip dose. Do not recommend skipping doses frequently . If eating half the meal or if blood sugar between 80-130 give HALF the dose If blood sugar less than 80 : Eat a meal and recheck. Give half dose of insulin once blood sugar over 150. 2) Check and write down your blood sugar readings daily to help you make adjustment s to the insulin dose (bring this record to your PCP). insulin Yes [id number] 5U inject 5 [facility] aspart 3-18 [id number] Units ity of U-100 00:00: under the [place] (NOVOLOG 00 skin 3 Medical FLEXPEN (three) Branch U-100 times INSULIN) daily 100 unit/mL before (3 mL) meals. injection Please check blood glucose level before. Blood glucose 150 - 180 give 1 units. Blood glucose 181 - 210 give 2 units. Blood glucose 211 - 240 give 3 units. Blood glucose 241 - 270 give 4units. Blood glucose 271 - 300 give 5units. If blood sugar >300, give 6 units. Recheck blood sugar in 3 hours. If blood sugar <70, DO NOT GIVE INSULIN, and make sure to eat a snack/drin k juice and recheck. metFORMIN Yes [id number] 500mg Take 1 [facility] 500 mg 3-18 [id number] tablet by ity of tablet 00:00: mouth 2 [place] (two) Medical times Branch daily with meals. bumetanide Yes [id number] 3mg Take 3 [facility] 1 mg tablet 3-18 [id number] tablets by ity of 00:00: mouth 2 [place] (two) Medical times Branch daily. spironolact Yes [id number] 25mg Take 1 [facility] one 25 mg 3-18 [id number] tablet by ity of tablet 00:00: mouth 2 [place] (two) Medical times Branch daily. albuterol Yes [id number] 2{puff} Inhale 2 [facility] 90 3-18 [id number] Puffs ity of mcg/actuati 00:00: every 6 Rj as on inhaler 00 (six) Medical hours as Branch needed for Wheezing, Shortness of Breath, Bronchospa sm or Chest tightness. simvastatin Yes [id number] 40mg Take 1 [facility] 40 mg 3-18 [id number] tablet by ity of tablet 00:00: mouth [place] 00 daily. Medical Branch Magnesium Yes [id number] 400mg Take 400 [facility] Oxide 420 3-18 mg by ity of mg Tab 00:00: mouth 2 [place] (two) Medical times Branch daily. sennosides- Yes [id number] 1{tbl} Take 1 [facility] docusate 3-18 tablet by ity of sodium 00:00: mouth [place] 8.6-50 mg 00 daily. Medical per tablet Branch Polyethylen Yes 17g 17 g, Unive rs e Glycol 3-17 Oral, TID, ity o f 3350 19:00: First dose [place] (MIRALAX) 00 (after Medical powder 17 g last Branch modificati on) on Thu04/25/20 at 1400, Until Discontinu ed, Routine insulin NPH 2021-0 2021- No 15U 15 Units, Univers (HUMULIN N) 04-25 Subcutaneo i ty of injection 14:00: 11:46 us, [place] 15 Units 00 :56 QAM+HS, Medical First dose Branch (after last modificati on) on Thu04/25/20 at 0900, Until Discontinu ed, Routine insulin Yes 12U 12 Units, [facility] rs regular 04-25 Subcutaneo ity of human 12:30: us, BIDAC, [place] (HUMULIN R) 00 First dose Me dical injection (after Branch 12 Units last modificati on) on Thu04/25/20 at 0730, Until Discontinu ed, Routine magnesium 2020- No 4g 4 g, IV Univ ers sulfate in 04-25 Piggyback, it y of water 4 12:01: 13:30 ONCE, 1 [place] gram/50 mL 00 :00 dose, Thu [facility] amarilis (8 %) IV 04/25/[address] [facility] h Piggyback 4 0715, g Routine magnesium Yes 400mg 400 mg, Univ ers oxide 04-24 Oral, ity of (MAG-OX 15:00: DAILY, [place] 400) tablet 00 First dose Me dical 400 mg on Thu [place] 04/24/20 at 1000, Until Discontinu ed, Routine bumetanide 2020- No 2mg 2 mg, Slow Univers (BUMEX) 04-24 IV Push, ity of injection 2 14:50: 16:30 ONCE, 1 [place] mg 00 :00 dose, [facility] 04/24/20 at Branch 1000, Routine
Indicatio n: Decompensa teri heart failure/vo lume overload and not responsive to IV furosemide insulin NPH 2020- No 15U 15 Units, Univers (HUMULIN N) 04-24 Subcutaneo i ty of injection 14:00: 11:38 us, [place] 15 Units 00 :44 QAM+HS, Medical First dose Branch (after last modificati on) on Thu04/24/20 at 0900, Until Discontinu ed, Routine KCL 2020- No 20meq 20 mEq, Univers (KLOR-CON 04-24 Oral, ity of M20) tablet 13:00: 13:40 ONCE, 1 [place] 20 mEq 00 :00 dose, [facility] Medical 04/24/20 at Branch 0800, Routine Sliding Yes Subcutaneo Univ ers Scale 3-16 us, AC+HS, ity of Insulin-Reg 12:30: First dose [place] ular + [facility] at Branch 0730, Until Discontinu ed, Routine insulin 2020- No 12U 12 Units, Univ ers regular 04-2417 Subcutaneo ity o f human 12:30: 11:38 us, [facility], [place] (HUMULIN R) 00 :44 First dose Me dical injection (after Branch 12 Units last modificati on) on [facility] 04/24/20 at 0730, Until Discontinu ed, Routine ALPRAZolam 2020- No .5mg 0.5 mg, Uni vers (XANAX) 04-24 Oral, ity of tablet 0.5 12:26: 12:25 TIDPRN, Rj as mg 07 :07 Starting Medical [facility] Branch 04/24/20 at 0726, Until 04/28/20 at 0725, Routine, Surgery/Pr ocedure HYDROcodone Yes 2745 1{tbl} 1 tablet, Univers -acetaminop 04-24 Oral, ity of hen (NORCO 12:00: TIDPRN, [place] 5) 5-325 mg 00 Starting Medi amarilis tablet 1 [facility] tablet 04/24/20 at 0700, Until Discontinu ed, Pain (scale 4-6), Pain (scale 7-10) insulin NPH 2020- No 14U 14 Units, Univers (HUMULIN N) 04-24 Subcutaneo i ty of injection 02:00: 12:04 , [place] 14 Units 00 :24 QAM+HS, Medical First dose Branch (after last modificati on) on 04/23/20 at 2100, Until Discontinu ed, Routine insulin 2020- No 9U 9 Units, Unive rs regular 04-23 Subcutaneo ity o f human 21:30: 12:04 us, BIDAC, [place] (HUMULIN R) 00 :24 First dose Me dical injection 9 (after Branch Units last modificati on) on Thu04/23/20 at 1630, Until Discontinu ed, Routine bumetanide 2020- No 2mg 2 mg, Slow Univers (BUMEX) 04-23 IV Push, ity of injection 2 16:15: 18:12 ONCE, 1 [place] mg 00 :00 dose, [facility] Medical 04/23/20 at Branch 1115, Routine
Indicatio n: Decompensa teri heart failure/vo lume overload and not responsive to IV furosemide magnesium 2020- No 2000mg 2,000 mg, Univers sulfate in 04-23 IV ity of water 2 16:15: 18:14 Infusion, [place] gram/50 mL 00 :00 ONCE, 1 Medica l (4 %) 2,000 dose, [facility] Bra nch mg 04/23/20 at piggyback 1115 KCL Yes 40meq 40 mEq, Univers (KLOR-CON 04-23 Oral, ity of M20) tablet 14:00: DAILY, [place] 40 mEq 00 First dose Medical on [facility] 04/23/20 at 0900, Until Discontinu ed, Routine ALPRAZolam 2020- No .5mg 0.5 mg, Uni vers (XANAX) 04-23 Oral, BID, ity o f tablet 0.5 13:00: 12:26 First dose [place] mg 00 :22 (after Medical last Branch modificati on) on [facility] 04/23/20 at 0800, Until Discontinu ed, Routine Sliding 2020- No Subcutaneo Uni vers Scale 04-23 us, AC+HS, ity of Insulin-Reg 12:30: 12:01 First dose [place] ular + Fsbg 00 :42 on [facility] l Testing 04/23/20 at Branch 0730, Until Discontinu ed, Routine insulin NPH 2020- No .24U/kg 13 Units Univers (HUMULIN N) 04-2215 /d (rounded ity of injection 14:00: 18:52 from [place] 13 Units 00 :06 13.284 Medical Units = Branch 0.24 Units/kg/d ay ?110.7 kg), Subcutaneo , QAM+HS, First dose (after last modificati on) on 04/22/20 at 0900, Until Discontinu ed, Routine oxymetazoli 2020- No 1{spray 1 [place], Univers ne 04-2216 } Nasal, ity of (OXYMETAZOL 13:15: 12:59 BID, 4 Rj as INE HCL) 00 :00 doses, Medical 0.05 % First dose Branch nasal spray on Sun 1 [place] 04/22/20 at 0815, Last dose on 04/23/20 at 2000, Routine benzonatate Yes 200mg 200 mg, Un carlos manuel (TESSALON 14 Oral, Q8H, ity of PERLES) 13:00: First dose [place] capsule 200 00 (after Medica l mg last Branch modificati on) on 04/22/20 at 0800, Until Discontinu ed, Routine guaiFENesin 2020- No 200mg 200 mg, U nivers (FENESIN 04-2217 Oral, Q4H, ity of IR) tablet 13:00: 16:48 First dose [place] 200 mg 00 :13 (after Medical last Branch modificati on) on 04/22/20 at 0800, Until Discontinu ed, Routine Sliding 2020- No Subcutaneo Uni vers Scale 04-22 , AC+HS, ity of Insulin-Reg 12:30: 11:42 First dose [place] ular + Fsbg 00 :36 on [facility] l Testing 04/22/20 at Branch 0730, Until Discontinu ed, Routine insulin 2020- No .1U/kg/ 5.5 Units U nivers regular 04-2215 d (rounded ity of human 12:30: 18:40 from 5.535 [place] (HUMULIN R) 00 :55 Units = Medic al injection 0.1 Branch 5.5 Units Units/kg/d ay ?110.7 kg), Subcutaneo , BIDAC, First dose (after last modificati on) on 04/22/20 at 0730, Until Discontinu ed, Routine KCL 2020- No 40meq 40 mEq, Univers (KLOR-CON 04-22 Oral, ity of M20) tablet 11:31: 13:12 ONCE, 1 [place] 40 mEq 00 :00 dose, [facility] 04/22/20 at Branch 0645, Routine KCL 2020-2020- No 40meq 40 mEq, IV Unive rs (POTASSIUM 04-22 Piggyback, it y of CHLORIDE) 10:45: 10:35 ONCE, 1 [place] 40 mEq in 00 :00 dose, [place] Medic al NaCl 0.9% 04/22/20 at [facility] ([facility]) 0545, 250 piggyback mL KCL 2020- No 40meq 40 mEq, Univers (KLOR-CON 04-22 Oral, ity of M20) tablet 10:45: 09:49 ONCE, 1 [place] 40 mEq 00 :00 dose, [facility] 04/22/20 at Branch 0545, Routine enoxaparin Yes 40mg 40 mg, Unive rs (LOVENOX) 04-21 Subcutaneo ity of injection 15:00: us, DAILY, [place] 40 mg 00 First dose Medical on [facility] 04/21/20 at 0900, Until Discontinu ed, Routine simvastatin Yes 40mg 40 mg, Univ ers (ZOCOR) 04-21 Oral, ity of tablet 40 15:00: DAILY, [place] mg 00 First dose Medical on [facility] 04/21/20 at 0900, Until Discontinu ed, Routine cetirizine Yes 5mg 5 mg, Univer s (ZYRTEC) 04-21 Oral, ity of tablet 5 mg 15:00: DAILY, [place] 00 First dose Medical on [facility] 04/21/20 at 0900, Until Discontinu ed, Routine sennosides 2020- No 8.6mg 8.6 mg, Un carlos manuel (SENOKOT) 04-2117 Oral, ity of tablet 8.6 15:00: 13:56 DAILY, [place] mg 00 :23 First dose Medical on [facility] 04/21/20 at 0900, Until Discontinu ed, Routine Polyethylen No 17g 17 g, Univ ers e Glycol 04-2117 Oral, ity of 3350 15:00: 13:56 DAILY, [place] (MIRALAX) 00 :23 First dose Medi amarilis powder [address] [facility] 04/21/20 at 0900, Until Discontinu ed, Routine insulin NPH 2020- No .42U/kg 23 Units Univers (HUMULIN N) 04-2114 /d (rounded ity of injection 15:00: 11:53 from [place] 23 Units 00 :06 23.247 Medical Units = Branch 0.42 Units/kg/d ay ?110.7 kg), Subcutaneo , QAM+HS, First dose on [facility] 04/21/20 at 0900, Until Discontinu ed, Routine bumetanide Yes 3mg 3 mg, Univer s (BUMEX) 04-21 Oral, BID, ity of tablet 3 mg 14:00: First dose [address] [facility] 04/21/20 at Branch 0800, Until Discontinu ed, Routine spironolact Yes 25mg 25 mg, Univ ers one -13 Oral, BID, ity of (ALDACTONE) 14:00: First dose [place] tablet 25 00 on [facility] 04/21/20 at Branch 0800, Until Discontinu ed, Routine carvediloL Yes 3.125mg 3.125 mg, Univers (COREG) 3-13 Oral, BID, ity of tablet 14:00: First dose [place] 3.[address] [facility] 04/21/20 at Branch 0800, Until Discontinu ed, Routine ALPRAZolam 2020- No .5mg 0.5 mg, Uni vers (XANAX) 04-21-15 Oral, TID, ity o f tablet 0.5 14:00: 12:00 First dose [place] mg 00 :[address] [facility] 04/21/20 at Branch 0800, Until Discontinu ed, Routine Sliding 2020- No Subcutaneo Uni vers Scale 04-21-14 us, Q4H, ity of Insulin-Reg 14:00: 11:56 First dose [place] ular + Fsbg 00 :06 (after Medica l Testing last Branch modificati on) on 04/21/20 at 0800, Until Discontinu ed, Routine insulin 2020- No .23U/kg 12.7 Units Univers regular 04-21 03-14 /d (rounded ity of human 13:30: 11:52 from [place] (HUMULIN R) 00 :11 12.7305 Medic al injection Units = Branch 12.7 Units 0.23 Units/kg/d ay ?110.7 kg), Subcutaneo us, BIDAC, First dose on 04/21/20 at 0730, Until Discontinu ed, Routine HYDROcodone 2020- No 2745 1{tbl} 1 tablet, Univers -acetaminop 04-2116 Oral, TID, i ty of hen (NORCO 05:00: 11:52 First dose [place] 5) 5-325 mg 00 :51 (after Medica l tablet 1 last Branch tablet modificati on) on Thu04/20/20 at 2300, Until Discontinu ed acetaminoph Yes 650mg 650 mg, Un carlos manuel en 04-21 Oral, ity of (TYLENOL) 04:22: Q6HPRN, [place] tablet 650 30 Starting Medic al mg Thu [place] 04/20/20 at 2222, Until Discontinu ed, Routine, Pain (scale 1-3), Temp > 38.5 C hydrOXYzine 2020- No 25mg Take 25 mg [facility] 25 mg 04-21 by mouth ity of tablet 04:17: 00:00 every 6 [place] 10 :00 (six) Medical hours. Branch bumetanide 2020- No 3mg Take 3 mg U nivers 2 mg tablet 04-21 by mouth 3 i ty of 04:17: 00:00 (three) [place] 10 :00 times Medical daily. Branch ipratropium Yes 2{puff} 2 Puff, Univers (ATROVENT 3-13 Inhalation ity of HFA) 04:14: , Q6HPRN, [place] inhaler 2 05 Starting Medica l Puff Thu [place] 04/20/20 at 2214, Until Discontinu ed, Routine, Shortness of Breath, Wheezing, Bronchospa sm, Chest tightness< br>Is this order for a patient with suspected or confirmed COVID-19 infection? Yes albuterol Yes 2{puff} 2 Puff, Un [facility] man[facility] (VENTOLIN) 04-21 Inhalation ity of inhaler 2 04:14: , Q6HPRN, [place] Puff 03 Starting Medical Fri Branch 04/20/20 at 2214, Until Discontinu ed, Routine, Wheezing, Shortness of Breath, Bronchospa sm, Chest tightness< br>Is this order for a patient with suspected or confirmed COVID-19 infection? Yes glucagon Yes 1mg 1 mg, Univers (GLUCAGEN 04-21 Intramuscu ity of DIAGNOSTIC 04:09: [place], PRN, [place] KIT) 58 Starting Medical injection 1 Fri Branch mg 04/20/20 at 2209, Until Discontinu ed, ANUSHA, Blood Glucose < or = 70 mg/dL and patient is unable to swallow or has mental changes. dextrose 50 Yes 25mL 25 mL, Univ ers % in water 04-21 Slow IV ity of (D50W) 04:09: Push, PRN, [place] injection 58 Starting Medica l 25 mL Fri Branch 04/20/20 at 2209, Until Discontinu ed, ANUSHA, Blood Glucose < or = 70 mg/dL and patient is unable to swallow or has mental status changes. enoxaparin 2020- No 1mg/kg 111 mg Un [facility] manuel (LOVENOX) 04-21 (rounded ity o f injection 00:15: 23:16 from 110.7 [place] 111 mg 00 :00 mg = 1 Medical mg/kg Branch ?110.7 kg), Subcutaneo , ONCE, 1 dose, 04/20/20 at 1815, Routine insulin 2020- No 8U 8 Units, Unive rs regular 04-20 Slow IV ity of human 23:45: 22:55 Push, [place] (HUMULIN R) 00 :00 ONCE, 1 Medic al injection 8 dose, Fri Bra nch Units 04/20/20 at 1745, STAT NaCl 0.9% 2020- No 500mL at 999 Univ ers (NS) bolus 3-12 03-13 mL/hr, 500 it y of infusion 22:45: 01:01 mL, IV [place] 500 mL 00 :00 Infusion, Medical ONCE, 1 Branch dose, 04/20/20 at 1645, ANUSHA ibuprofen 2020- No 600mg 600 mg, Uni vers (IBU) 04-20 Oral, ity of tablet 600 22:30: 21:33 ONCE, 1 [place] mg 00 :00 dose, Fri Medical 04/20/20 at Branch 1630, ANUSHA acetaminoph 2020- No 1000mg 1,000 mg, Univers en 04-20 Oral, ity of (TYLENOL) 22:30: 21:33 ONCE, 1 [place] tablet 00 :00 dose, Fri Medical 1,000 mg 04/20/[address] [facility] h 1630, Routine Insulin Asp 2020- No 80U inject 80 Univers Prt-Insulin 04-20 03-18 Units ity of Aspart 00:00: 00:00 under the [place] (NOVOLOG 00 :00 skin 2 Medical MIX 70-30) (two) Branch 100 unit/mL times (70-30) daily with injection meals. albuterol 2020- No 2.5mg Inhale 2.5 Univers 2.5 mg /3 3-09 04-09 mg 3 ity of mL (0.083 00:00: 04:59 (three) [place] %) 00 :00 times Medical nebulizer daily. Branch solution albuterol 2020- No 2.5mg Inhale 2.5 Univers 2.5 mg /3 3-09 04-09 mg 3 ity of mL (0.083 00:00: 04:59 (three) [place] 00 :00 times Medical nebulizer daily. Branch solution albuterol 2020- No 2.5mg Inhale 2.5 Univers 2.5 mg /3 3-09 04-09 mg 3 ity of mL (0.083 00:00: 04:59 (three) [place] 00 :00 times Medical nebulizer daily. Branch solution albuterol 2020- No 2.5mg Inhale 2.5 Univers 2.5 mg /3 3-09 04-09 mg 3 ity of mL (0.083 00:00: 04:59 (three) [place] 00 :00 times Medical nebulizer daily. Junior solution amoxicillin 2020- No 1{tbl} Take 1 U nivers -pot 04-17 tablet by ity of clavulanate 00:00: 00:00 mouth 2 [place] 500 mg 00 :00 (two) Medical 500-125 mg times Branch tablet daily. bumetanide 2020- No 3mg Take 3 mg U nivers 1 mg tablet 04-17 by mouth 2 i ty of 00:00: 00:00 (two) [place] 00 :00 times Medical daily. Branch spironolact No 25mg Take 25 mg Univers one 25 mg 04-17 by mouth 2 ity of tablet 00:00: 00:00 (two) [place] 00 :00 times Medical daily. Branch nystatin-tr 2020-0 Yes Apply to U nivers iamcinolone 2-25 area(s) 2 ity of cream 00:00: (two) [place] 00 times Medical daily. Branch nystatin-tr 2020-0 Yes Apply to U nivers iamcinolone 2-25 area(s) 2 ity of cream 00:00: (two) [place] 00 times Medical daily. Branch nystatin-tr 2020-0 Yes Apply to U nivers iamcinolone 2-25 area(s) 2 ity of cream 00:00: (two) [place] 00 times Medical daily. Branch nystatin-tr 2020-0 Yes Apply to U nivers iamcinolone 2-25 area(s) 2 ity of cream 00:00: (two) [place] 00 times Medical daily. Branch nystatin-tr 2020-0 Yes Apply to U nivers iamcinolone 2-25 area(s) 2 ity of cream 00:00: (two) [place] 00 times Medical daily. Branch nystatin-tr 202-0 Yes Apply to U nivers iamcinolone 2-25 area(s) 2 ity of cream 00:00: (two) [place] 00 times Medical daily. Branch nystatin-tr 202-0 Yes Apply to U nivers iamcinolone 2-25 area(s) 2 ity of cream 00:00: (two) [place] 00 times Medical daily. Branch nystatin-tr 2021-0 Yes Apply to U nivers iamcinolone 2-25 area(s) 2 ity of cream 00:00: (two) [place] 00 times Medical daily. Branch nystatin-tr 2021-0 Yes Apply to U nivers iamcinolone 2-25 area(s) 2 ity of cream 00:00: (two) [place] 00 times Medical daily. Branch nystatin-tr 2021-0 Yes Apply to U nivers iamcinolone 2-25 area(s) 2 ity of cream 00:00: (two) [place] 00 times Medical daily. Branch nystatin-tr 2021-0 Yes Apply to U nivers iamcinolone 2-25 area(s) 2 ity of cream 00:00: (two) [place] 00 times Medical daily. Branch nystatin 2020-0 2021- No Apply to Uni vers 100,000 2-25 02-26 area(s) 4 ity of unit/gram 00:00: 05:59 (four) [place] powder 00 :00 times Medical daily. Branch nystatin 2020-0 2021- No Apply to Uni vers 100,000 2-25 02-26 area(s) 4 ity of unit/gram 00:00: 05:59 (four) [place] powder 00 :00 times Medical daily. Branch nystatin 2020-0 2021- No Apply to Uni vers 100,000 2-25 02-26 area(s) 4 ity of unit/gram 00:00: 05:59 (four) [place] powder 00 :00 times Medical daily. Branch nystatin 2020-0 2021- No Apply to Uni vers 100,000 2-25 02-26 area(s) 4 ity of unit/gram 00:00: 05:59 (four) [place] powder 00 :00 times Medical daily. Branch nystatin 2021-0 202- No Apply to Uni vers 100,000 2-25 02-26 area(s) 4 ity of unit/gram 00:00: 05:59 (four) [place] powder 00 :00 times Medical daily. Branch nystatin 2020-0 2021- No Apply to Uni vers 100,000 2-25 02-26 area(s) 4 ity of unit/gram 00:00: 05:59 (four) [place] powder 00 :00 times Medical daily. Branch nystatin 2021- No Apply to Uni vers 100,000 2-25 02-26 area(s) 4 ity of unit/gram 00:00: 05:59 (four) [place] powder 00 :00 times Medical daily. Branch nystatin 2021- No Apply to Uni vers 100,000 2-25 02-26 area(s) 4 ity of unit/gram 00:00: 05:59 (four) [place] powder 00 :00 times Medical daily. Branch nystatin 2021- No Apply to Uni vers 100,000 2-25 02-26 area(s) 4 ity of unit/gram 00:00: 05:59 (four) [place] powder 00 :00 times Medical daily. Branch nystatin 2021- No Apply to Uni vers 100,000 2-25 02-26 area(s) 4 ity of unit/gram 00:00: 05:59 (four) [place] powder 00 :00 times Medical daily. Branch nystatin 2021- No Apply to Uni vers 100,000 2-25 02-26 area(s) 4 ity of unit/gram 00:00: 05:59 (four) [place] powder 00 :00 times Medical daily. Branch simvastatin 2020- No 40mg Take 40 mg Univers 40 mg 224 03-18 by mouth ity of tablet 00:00: 00:00 daily. [place] 00 :00 Medical Branch insulin 2020- No 5U inject 5 Unive rs aspart 218 03-18 Units ity of U-100 00:00: 00:00 under the [place] (NOVOLOG 00 :00 skin 3 Medical FLEXPEN (three) Branch U-100 times INSULIN) daily 100 unit/mL before (3 mL) meals. injection insulin Yes [id number] 10U inject 10 Univers glargine 2-10 Units ity of 100 unit/mL 00:00: under the [place] injection 00 skin Medical daily. Branch insulin Yes [id number] 10U inject 10 [facility] glargine 2-10 Units ity of 100 unit/mL 00:00: under the [place] injection 00 skin Medical daily. Branch sennosides- 2020- No [id number] 1{tbl} Take 1 Univers docusate 2-10 03-18 tablet by ity o f sodium 00:00: 00:00 mouth [place] 8.6-50 mg 00 :00 daily for Medic al per tablet 30 days. [facility] sennosides- 2020- No [id number] 1{tbl} Take 1 Univers docusate 2-10 03-13 tablet by ity o f sodium 00:00: 05:59 mouth [place] 8.6-50 mg 00 :00 daily for Medic al per tablet 30 days. [facility] sennosides- 2020- No [id number] 1{tbl} Take 1 Univers docusate 2-10 03-13 tablet by ity o f sodium 00:00: 05:59 mouth [place] 8.6-50 mg 00 :00 daily for Medic al per tablet 30 days. [facility] insulin 2020- No [id number] 10U inject 10 Univers glargine 2-10 03-12 Units ity of 100 unit/mL 00:00: 00:00 under the [place] injection 00 :00 skin Medical daily. [place] HYDROcodone Yes [id number] 1{tbl} Take 1 Un carlos manuel -acetaminop 2-09 tablet by ity of hen (NORCO) 23:29: mouth [place] 7.5-325 mg 51 every 8 Medica l per tablet (eight) Branch hours as needed for Pain. Indication s: chronic pain hydrOXYzine Yes 25mg Take 25 mg Univers 25 mg 2-09 by mouth ity of tablet 23:29: every 6 [place] 51 (six) Medical hours. Branch bumetanide Yes 3mg Take 3 mg Un car[facility] manuel 2 mg tablet 2-09 by mouth 3 it y of 23:29: (three) [place] 51 times Medical daily. Branch HYDROcodone Yes 2745 1{tbl} Take 1 Un car[facility] manuel -acetaminop 2-09 tablet by ity of hen (NORCO) 23:29: mouth [place] 7.5-325 mg 51 every 8 Medica l per tablet (eight) Branch hours as needed for Pain. Indication s: chronic pain hydrOXYzine 2021-0 Yes 25mg Take 25 mg Univers 25 mg 2-09 by mouth ity of tablet 23:29: every 6 [place] 51 (six) Medical hours. Branch bumetanide Yes 3mg Take 3 mg Un car[facility] manuel 2 mg tablet 2-09 by mouth 3 it y of 23:29: (three) [place] 51 times Medical daily. Branch Lactobacill Yes [id number] 1{tbl} Take 1 Univers us Acidoph 2-09 tablet by ity of & [place] 1 00:00: mouth 3 [place] million 00 (three) Medical cell Tab times Branch daily. Lactobacill Yes [id number] 1{tbl} Take 1 Univers us Acidoph 2-09 tablet by ity of & [place] 1 00:00: mouth 3 [place] million 00 (three) Medical cell Tab times Branch daily. spironolact 2020- No [id number] 25mg Take 1 Univers one 25 mg 2- 03-12 tablet by ity of tablet 00:00: 05:59 mouth 2 [place] 00 :00 (two) Medical times Branch daily for 30 days. spironolact 2020- No [id number] 25mg Take 1 Univers one 25 mg 2- 03-12 tablet by ity of tablet 00:00: 05:59 mouth 2 [place] 00 :00 (two) Medical times Branch daily for 30 days. Lactobacill 2020- No [id number] 1{tbl} Take 1 Univers us Acidoph 2-09 03-12 tablet by ity of & Bulgar 1 00:00: 00:00 mouth 3 [place] million 00 :00 (three) Medical cell Tab times Branch daily. cephALEXin 2020- No [id number] 500mg Take 1 Univers 500 mg 2-10 11-17 capsule by ity of capsule 00:00: 05:59 mouth 3 [place] 00 :00 (three) Medical times Branch daily for 7 days. HYDROcodone Yes [id number] 1{tbl} Take 1 Un carlos manuel -acetaminop 2-05 tablet by ity of hen (NORCO) 20:59: mouth [place] 7.5-325 mg 36 every 8 Medica l per tablet (eight) Branch hours as needed for Pain. Indication s: chronic pain hydrOXYzine Yes 25mg Take 25 mg Univers 25 mg 2-05 by mouth ity of tablet 20:59: every 6 [place] 36 (six) Medical hours. Branch bumetanide Yes 3mg Take 3 mg Un car[facility] manuel 2 mg tablet 2-05 by mouth 3 it y of 20:59: (three) [place] 36 times Medical daily. Branch HYDROcodone Yes 2745 1{tbl} Take 1 Un carlos manuel -acetaminop 2-05 tablet by ity of hen (NORCO) 20:59: mouth [place] 7.5-325 mg 36 every 8 Medica l per tablet (eight) Branch hours as needed for Pain. Indication s: chronic pain hydrOXYzine Yes 25mg Take 25 mg Univers 25 mg 2-05 by mouth ity of tablet 20:59: every 6 [place] 36 (six) Medical hours. Branch bumetanide Yes 3mg Take 3 mg Un car[facility] manuel 2 mg tablet 2-05 by mouth 3 it y of 20:59: (three) [place] 36 times Medical daily. Branch carvediloL 2020- No [id number] 3.125mg Take 1 Univers 3.125 mg 2-05 05-07 tablet by ity o f tablet 00:00: 04:59 mouth 2 [place] 00 :00 (two) Medical times Branch daily for 90 days. carvediloL 2020- No [id number] 3.125mg Take 1 Univers 3.125 mg 2-05 05-07 tablet by ity o f tablet 00:00: 04:59 mouth 2 [place] 00 :00 (two) Medical times Branch daily for 90 days. carvediloL 2020- No [id number] 3.125mg Take 1 Univers 3.125 mg 2-05 05-07 tablet by ity o f tablet 00:00: 04:59 mouth 2 [place] 00 :00 (two) Medical times Branch daily for 90 days. carvediloL 2020- No [id number] 3.125mg Take 1 Univers 3.125 mg 2-05 05-07 tablet by ity o f tablet 00:00: 04:59 mouth 2 [place] 00 :00 (two) Medical times Branch daily for 90 days. carvediloL 2020- No [id number] 3.125mg Take 1 Univers 3.125 mg 2-05 05-07 tablet by ity o f tablet 00:00: 04:59 mouth 2 [place] 00 :00 (two) Medical times [place] daily for 90 days. carvediloL 2020- No [id number] 3.125mg Take 1 Univers 3.125 mg 2-05 05-07 tablet by ity o f tablet 00:00: 04:59 mouth 2 [place] 00 :00 (two) [facility] times [place] daily for 90 days. carvediloL 2020- No [id number] 3.125mg Take 1 Univers 3.125 mg 2- 05-07 tablet by ity o f tablet 00:00: 04:59 mouth 2 [place] 00 :00 (two) [facility] times [place] daily for 90 days. carvediloL 2020- No [id number] 3.125mg Take 1 Univers 3.125 mg 2- 05-07 tablet by ity o f tablet 00:00: 04:59 mouth 2 [place] 00 :00 (two) [facility] times [place] daily for 90 days. doxycycline 2020- No 100mg 100 mg, U nivers hyclate 03-06 Oral, ity of (Vibramycin 01:02: 01:08 ONCE, 1 [place] capsule 00 :00 dose, [facility] Medic al 100 mg 03/05/20 at Branch 1915, ANUSHA
Re ason for Anti-Infec tive: Documented Infection< br>Documen teri Infection Site: Skin / Soft Tissue
Duration of Therapy: Other (see Comments) furosemide 2020- No 40mg 40 mg, Univ ers (LASIX) 03-06 Slow IV ity of injection 01:02: 01:08 Push, [place] 40 mg 00 :00 ONCE, 1 Medical dose, [facility] Branch 03/05/20 at 1915, ANUSHA cetirizine 2020- No 5mg Take 5 mg U nivers 5 mg tablet 03-06 by mouth ity of 00:00: 04:59 daily. [place] 00 :00 [facility] cetirizine 2020- No 5mg Take 5 mg U nivers 5 mg tablet 03-06 by mouth ity of 00:00: 04:59 daily. [place] 00 :00 Medical Branch cetirizine 2020-2020- No 5mg Take 5 mg U nivers 5 mg tablet 03-06 by mouth ity of 00:00: 04:59 daily. [place] 00 :00 Medical Branch cetirizine 2020- No 5mg Take 5 mg U nivers 5 mg tablet 03-06 by mouth ity of 00:00: 04:59 daily. [place] 00 :00 Medical Branch glipiZIDE 2020- No 10mg Take 10 mg U nivers 10 mg 03-06 by mouth ity of tablet 00:00: 00:00 daily. [place] 00 :00 Medical Branch insulin 2020- No 7U 7 Units, Unive rs regular 03-05 Slow IV ity of human 23:01: 23:10 Push, [place] (HUMULIN R) 00 :00 ONCE, 1 Medic al injection 7 dose, [facility] Units 03/05/20 at 1715, STAT polyethylen Yes [id number] 17g Take 17 g Univers e glycol -25 [id number] by mouth ity o f 3350 00:00: daily. [place] (MIRALAX) Medical 17 Branch gram/dose powder polyethylen Yes [id number] 17g Take 17 g Univers e glycol 1-25 [id number] by mouth ity o f 3350 00:00: daily. [place] (MIRALAX) Medical 17 Branch gram/dose powder polyethylen 2020-0 Yes [id number] 17g Take 17 g Univers e glycol 1-25 [id number] by mouth ity o f 3350 00:00: daily. [place] (MIRALAX) Medical 17 Branch gram/dose powder polyethylen 2020-0 Yes [id number] 17g Take 17 g Univers e glycol 1-25 [id number] by mouth ity o f 3350 00:00: daily. [place] (MIRALAX) Medical 17 Branch gram/dose powder polyethylen 2020-0 Yes [id number] 17g Take 17 g Univers e glycol -25 [id number] by mouth ity o f 3350 00:00: daily. [place] (MIRALAX) 00 Medical 17 Branch gram/dose powder polyethylen 2020- No [id number] 17g Take 17 g Univers e glycol 03-05 [id number] by mouth ity of 3350 00:00: 00:00 daily. [place] (MIRALAX) 00 :00 Medical 17 Branch gram/dose powder doxycycline 2020- No [id number] 100mg Take 1 Univers hyclate 100 03-05 [id number] capsule by ity of mg capsule 00:00: 05:59 mouth 2 [place]j as 00 :00 (two) Medical times [place] daily for 7 days. metFORMIN 2020- No 500mg Take 500 Un car[facility] manuel 500 mg 03-01 03-18 mg by ity of tablet 00:00: 00:00 mouth 2 [place] 00 :00 (two) Medical times [place] daily with meals. bumetanide Yes 3mg Take 3 mg Un car[facility] manuel 2 mg tablet 1-11 by mouth 3 it y of 00:46: (three) [place] 31 times Medical daily. Branch bumetanide Yes 3mg Take 3 mg Un car[facility] manuel 2 mg tablet 1-11 by mouth 3 it y of 00:46: (three) [place] 31 times Medical daily. Branch bumetanide Yes 3mg Take 3 mg Un [facility] manuel 2 mg tablet 1-11 by mouth 3 it y of 00:46: (three) [place] 31 times Medical daily. Branch bumetanide Yes 3mg Take 3 mg Un car[facility] manuel 2 mg tablet 1-11 by mouth 3 it y of 00:46: (three) [place] 31 times Medical daily. Branch bumetanide 0 Yes 3mg Take 3 mg Un car[facility] manuel 2 mg tablet 1-11 by mouth 3 it y of 00:46: (three) [place] 31 times Medical daily. Branch spironolact 0 Yes [id number] 25mg Take 0.5 Univers one 50 mg 1-10 tablets by ity of tablet 00:00: mouth 2 [place] 00 (two) Medical times Branch daily. spironolact 2020-0 Yes [id number] 25mg Take 0.5 Univers one 50 mg 1-10 tablets by ity of tablet 00:00: mouth 2 [place] 00 (two) Medical times Branch daily. spironolact 2020-0 Yes [id number] 25mg Take 0.5 Univers one 50 mg 1-10 tablets by ity of tablet 00:00: mouth 2 [place] 00 (two) Medical times Branch daily. spironolact 2020-0 Yes [id number] 25mg Take 0.5 Univers one 50 mg 1-10 tablets by ity of tablet 00:00: mouth 2 [place] 00 (two) Medical times Branch daily. spironolact 2020-0 Yes [id number] 25mg Take 0.5 Univers one 50 mg 1-10 tablets by ity of tablet 00:00: mouth 2 [place] 00 (two) Medical times Branch daily. spironolact 2020-0 Yes [id number] 25mg Take 0.5 Univers one 50 mg 1-10 tablets by ity of tablet 00:00: mouth 2 [place] 00 (two) Medical times Branch daily. spironolact 2020-0 Yes [id number] 25mg Take 0.5 Univers one 50 mg 1-10 tablets by ity of tablet 00:00: mouth 2 [place] 00 (two) Medical times Branch daily. montelukast 2020-2020- No 10mg Take 10 mg Univers (SINGULAIR) 02-16 by mouth. it y of 10 mg 21:27: 00:00 [place] tablet 05 :00 Medical Branch montelukast 2020- No 10mg Take 10 mg Univers (SINGULAIR) 02-16 by mouth. it y of 10 mg 21:27: 00:00 [place] tablet 05 :00 [facility] Branch montelukast 2020-2020- No 10mg Take 10 mg Univers (SINGULAIR) 02-16 by mouth. it y of 10 mg 21:27: 00:00 [place] tablet 05 :00 Medical Branch HYDROcodone Yes [id number] 1{tbl} Take 1 Un carlos manuel -acetaminop 1-08 tablet by ity of hen (NORCO) 21:26: mouth [place] 7.5-325 mg 49 every 8 Medica l per tablet (eight) Branch hours as needed for Pain. Indication s: chronic pain hydrOXYzine Yes 25mg Take 25 mg Univers 25 mg 1-08 by mouth ity of tablet 21:26: every 6 [place] 49 (six) Medical hours. Branch HYDROcodone 2021-0 Yes [id number] 1{tbl} Take 1 Un carlos manuel -acetaminop 1-08 tablet by ity of hen (PreApps) 21:26: mouth [place] 7.5-325 mg 49 every 8 Medica l per tablet (eight) Branch hours as needed for Pain. Indication s: chronic pain hydrOXYzine 2020-0 Yes 25mg Take 25 mg Univers 25 mg 1-08 by mouth ity of tablet 21:26: every 6 [place] 49 (six) Medical hours. Branch HYDROcodone 2020-0 Yes [id number] 1{tbl} Take 1 Un carlos manuel -acetaminop 1-08 tablet by ity of hen (PreApps) 21:26: mouth [place] 7.5-325 mg 49 every 8 Medica l per tablet (eight) Branch hours as needed for Pain. Indication s: chronic pain hydrOXYzine 2020-0 Yes 25mg Take 25 mg Univers 25 mg 1-08 by mouth ity of tablet 21:26: every 6 [place] 49 (six) Medical hours. Branch HYDROcodone 2020-0 Yes [id number] 1{tbl} Take 1 Un carlos manuel -acetaminop 1-08 tablet by ity of hen (PreApps) 21:26: mouth [place] 7.5-325 mg 49 every 8 Medica l per tablet (eight) Branch hours as needed for Pain. Indication s: chronic pain hydrOXYzine 2020-0 Yes 25mg Take 25 mg Univers 25 mg 1-08 by mouth ity of tablet 21:26: every 6 [place] 49 (six) Medical hours. Branch HYDROcodone 2020-0 Yes [id number] 1{tbl} Take 1 Un carlos manuel -acetaminop 1-08 tablet by ity of hen (PreApps) 21:26: mouth [place] 7.5-325 mg 49 every 8 Medica l per tablet (eight) Branch hours as needed for Pain. Indication s: chronic pain hydrOXYzine 2020-0 Yes 25mg Take 25 mg Univers 25 mg 1-08 by mouth ity of tablet 21:26: every 6 [place] 49 (six) Medical hours. Branch ergocalcife 2019-02- No [id number] Take 1 [facility] rol, 2-19 01-25 capsule by ity of vitamin d2, 00:00: 05:59 mouth [place] 1,250 mcg 00 :00 weekly for Medi amarilis (50,000 6 doses. Branch unit) capsule ergocalcife 2019-02- No [id number] Take 1 [facility] rol, 2-19 -25 capsule by ity of vitamin d2, 00:00: 05:59 mouth [place] 1,250 mcg 00 :00 weekly for Medi amarilis (50,000 6 doses. Branch unit) capsule ergocalcife 2019-02- No [id number] Take 1 Univers rol, 2-19 -25 capsule by ity of vitamin d2, 00:00: 05:59 mouth [place] 1,250 mcg 00 :00 weekly for Medi amarilis (50,000 6 doses. Branch unit) capsule ergocalcife 2019-02- No [id number] Take 1 Univers rol, 2-19 -25 capsule by ity of vitamin d2, 00:00: 05:59 mouth [place] 1,250 mcg 00 :00 weekly for Medi amarilis (50,000 6 doses. Branch unit) capsule ergocalcife 2019-02- No [id number] Take 1 Univers rol, 2-19 -25 capsule by ity of vitamin d2, 00:00: 05:59 mouth [place] 1,250 mcg 00 :00 weekly for Medi amarilis (50,000 6 doses. Branch unit) capsule ergocalcife 2019-02- No [id number] Take 1 [facility] rol, 2-19 -25 capsule by ity of vitamin d2, 00:00: 05:59 mouth [place] 1,250 mcg 00 :00 weekly for Medi amarilis (50,000 6 doses. Branch unit) capsule ergocalcife 2019-02- No [id number] Take 1 Univers rol, 2-19 01-25 capsule by ity of vitamin d2, 00:00: 05:59 mouth [place] 1,250 mcg 00 :00 weekly for Medi amarliis (50,000 6 doses. Branch unit) capsule ergocalcife 2019-02- No [id number] Take 1 [facility] rol, 2-19 01-25 capsule by ity of vitamin d2, 00:00: 05:59 mouth [place] 1,250 mcg 00 :00 weekly for Medi amarilis (50,000 6 doses. Branch unit) capsule ergocalcife 2019-02- No [id number] Take 1 Univers rol, 2-19 12-16 capsule by ity of vitamin d2, 00:00: 00:00 mouth [place] 1,250 mcg 00 :00 weekly for Medi amarilis (50,000 6 doses. Branch unit) capsule aspirin 81 2019-02- No [id number] 81mg Take 1 Univers mg chewable 2-17 -17 tablet by it y of tablet 00:00: 05:59 mouth [place] 00 :00 daily with Medical breakfast Branch for 30 days. cetirizine 2019-02- No [id number] 5mg Take 1 Univers 5 mg tablet 2-02-25 tablet by it y of 00:00: 05:59 mouth [place] 00 :00 daily for Medical 30 days. Branch SITagliptin 2019-02- No [id number] 50mg Take 1 [facility] 50 mg 2-25 02-17 tablet by ity of tablet 00:00: 05:59 mouth [place] 00 :00 daily for Medical 30 days. Branch aspirin 81 2019-02- No [id number] 81mg Take 1 Univers mg chewable 2-02-25 tablet by it y of tablet 00:00: 05:59 mouth [place] 00 :00 daily with Medical breakfast Branch for 30 days. cetirizine 2019-02- No [id number] 5mg Take 1 [facility] 5 mg tablet 2-25 02-17 tablet by it y of 00:00: 05:59 mouth [place] 00 :00 daily for Medical 30 days. Branch SITagliptin 2019-02- No [id number] 50mg Take 1 [facility] 50 mg 2-17 -17 tablet by ity of tablet 00:00: 05:59 mouth [place] 00 :00 daily for Medical 30 days. Branch aspirin 81 2019-02- No [id number] 81mg Take 1 [facility] mg chewable 2-17 -17 tablet by it y of tablet 00:00: 05:59 mouth [place] 00 :00 daily with Medical breakfast Branch for 30 days. cetirizine 2019-02- No [id number] 5mg Take 1 [facility] 5 mg tablet 2-17 -17 tablet by it y of 00:00: 05:59 mouth [place] 00 :00 daily for Medical 30 days. Branch SITagliptin 2019-02- No [id number] 50mg Take 1 [facility] 50 mg 2-17 -17 tablet by ity of tablet 00:00: 05:59 mouth [place] 00 :00 daily for Medical 30 days. Branch aspirin 81 2019-02- No [id number] 81mg Take 1 [facility] mg chewable 2-17 17 tablet by it y of tablet 00:00: 05:59 mouth [place] 00 :00 daily with Medical breakfast Branch for 30 days. cetirizine 2019-02- No [id number] 5mg Take 1 [facility] 5 mg tablet 2-17 tablet by it y of 00:00: 05:59 mouth [place] 00 :00 daily for Medical 30 days. Branch SITagliptin 2019-02- No [id number] 50mg Take 1 [facility] 50 mg 2-17 - tablet by ity of tablet 00:00: 05:59 mouth [place] 00 :00 daily for Medical 30 days. Branch aspirin 81 2019-02- No [id number] 81mg Take 1 [facility] mg chewable 2-17 02-25 tablet by it y of tablet 00:00: 05:59 mouth [place] 00 :00 daily with Medical breakfast Branch for 30 days. cetirizine 2019-02- No [id number] 5mg Take 1 [facility] 5 mg tablet 2-02-25 tablet by it y of 00:00: 05:59 mouth [place] 00 :00 daily for Medical 30 days. Branch SITagliptin 2019-02- No [id number] 50mg Take 1 [facility] 50 mg 2-17 17 tablet by ity of tablet 00:00: 05:59 mouth [place] 00 :00 daily for Medical 30 days. Branch aspirin 81 2019-02- No [id number] 81mg Take 1 [facility] mg chewable 2-17 17 tablet by it y of tablet 00:00: 05:59 mouth [place] 00 :00 daily with Medical breakfast Branch for 30 days. cetirizine 2019-02- No [id number] 5mg Take 1 [facility] 5 mg tablet 2-17 tablet by it y of 00:00: 05:59 mouth [place] 00 :00 daily for Medical 30 days. Branch SITagliptin 2019-02- No [id number] 50mg Take 1 [facility] 50 mg 2-17 -17 tablet by ity of tablet 00:00: 05:59 mouth [place] 00 :00 daily for Medical 30 days. Branch aspirin 81 2019-02- No [id number] 81mg Take 1 [facility] mg chewable 2-17 01-17 tablet by it y of tablet 00:00: 05:59 mouth [place] 00 :00 daily with Medical breakfast Branch for 30 days. cetirizine 2019-02- No [id number] 5mg Take 1 [facility] 5 mg tablet 2-17 -17 tablet by it y of 00:00: 05:59 mouth [place] 00 :00 daily for Medical 30 days. Branch SITagliptin 2019-02- No [id number] 50mg Take 1 [facility] 50 mg 2-17 01-17 tablet by ity of tablet 00:00: 05:59 mouth [place] 00 :00 daily for Medical 30 days. Branch aspirin 81 2019-02- No [id number] 81mg Take 1 [facility] mg chewable 2-17 12-16 tablet by it y of tablet 00:00: 00:00 mouth [place] 00 :00 daily with Medical breakfast Branch for 30 days. cetirizine 2019-02- No [id number] 5mg Take 1 [facility] 5 mg tablet 2-17 12-16 tablet by it y of 00:00: 00:00 mouth [place] 00 :00 daily for Medical 30 days. Branch SITagliptin 2019-02- No [id number] 50mg Take 1 [facility] 50 mg 2-17 12-16 tablet by ity of tablet 00:00: 00:00 mouth [place] 00 :00 daily for Medical 30 days. Branch montelukast 2019-02 Yes 10mg Take 10 mg Univers (SINGULAIR) 2-16 by mouth. ity of 10 mg 20:38: [place] tablet 03 [facility] HYDROcodone 2019-02 Yes 2745 1{tbl} Take 1 Un carlos manuel -acetaminop 2-16 tablet by ity of hen (NORCO) 20:38: mouth [place] 7.5-325 mg 03 every 8 Medica l per tablet (eight) Branch hours as needed for Pain. Indication s: chronic pain montelukast 2019-02 Yes 10mg Take 10 mg [facility] (SINGULAIR) 2-16 by mouth. ity of 10 mg 20:38: [place] tablet 03 [facility] HYDROcodone 2019-02 Yes 2745 1{tbl} Take 1 Un carlos manuel -acetaminop 2-16 tablet by ity of hen (PreApps) 20:38: mouth [place] 7.5-325 mg 03 every 8 Medica l per tablet (eight) Branch hours as needed for Pain. Indication s: chronic pain montelukast 2019-02 Yes 10mg Take 10 mg [facility] (SINGULAIR) 2-16 by mouth. ity of 10 mg 20:38: [place] tablet 03 Medical Branch HYDROcodone 2019-02 Yes 2745 1{tbl} Take 1 Un carlos manuel -acetaminop 2-16 tablet by ity of hen (NORBBOXX) 20:38: mouth [place] 7.5-325 mg 03 every 8 Medica l per tablet (eight) Branch hours as needed for Pain. Indication s: chronic pain montelukast 2019-02 Yes 10mg Take 10 mg [facility] (SINGULAIR) 2-16 by mouth. ity of 10 mg 20:38: [place] tablet 03 Medical Branch HYDROcodone 2019-02 Yes 2745 1{tbl} Take 1 Un carlos manuel -acetaminop 2-16 tablet by ity of hen (PreApps) 20:38: mouth [place] 7.5-325 mg 03 every 8 Medica l per tablet (eight) Branch hours as needed for Pain. Indication s: chronic pain vancomycin 2019-02 Yes 1250mg 1,250 mg, [facility] 1250 mg in 2-16 IV ity of NS 250 mL 15:45: [place]back, [place] RTU IV 00 Q24H ABX, Medical Piggyback First dose Bran ch 1,250 mg (after last modificati on) on Thu01/25/20 at 0945, Until Discontinu ed
Reas on for Anti-Infec tive: Documented Infection< br>Documen teri Infection Site: Skin / Soft Tissue
Duration of Therapy: Other (see Comments) bumetanide 2019-02 Yes 2mg 2 mg, Slow U nivers (BUMEX) 2-16 IV Push, ity of injection 2 02:00: BID, First [place] mg 00 dose Medical (after Branch last modificati on) on Thu01/24/20 at 2000, Until Discontinu ed, Routine
Indicatio n: Decompensa teri heart failure/vo lume overload and not responsive to IV furosemide carvediloL 2019-02 Yes [id number] 6.25mg Take 1 [facility] 6.25 mg 2-16 tablet by ity of tablet 00:00: mouth 2 (two) Medical times Branch daily. carvediloL 2019-02 Yes [id number] 6.25mg Take 1 [facility] 6.25 mg 2-16 tablet by ity of tablet 00:00: mouth 2 (two) Medical times Branch daily. carvediloL 2019-02 Yes [id number] 6.25mg Take 1 [facility] 6.25 mg 2-16 tablet by ity of tablet 00:00: mouth 2 (two) Medical times Branch daily. carvediloL 2019-02 Yes [id number] 6.25mg Take 1 [facility] 6.25 mg 2-16 tablet by ity of tablet 00:00: mouth (two) Medical times Branch daily. carvediloL 2019-02 Yes [id number] 6.25mg Take 1 [facility] 6.25 mg 2-16 tablet by ity of tablet 00:00: mouth (two) Medical times Branch daily. carvediloL 2019-02 Yes [id number] 6.25mg Take 1 [facility] 6.25 mg 2-16 tablet by ity of tablet 00:00: mouth (two) Medical times Branch daily. carvediloL 2019-02 Yes [id number] 6.25mg Take 1 [facility] 6.25 mg 2-16 tablet by ity of tablet 00:00: mouth (two) Medical times Branch daily. carvediloL 2019-02 Yes [id number] 6.25mg Take 1 [facility] 6.25 mg 2-16 tablet by ity of tablet 00:00: mouth (two) Medical times Branch daily. carvediloL 2019-02 Yes [id number] 6.25mg Take 1 [facility] 6.25 mg 2-16 tablet by ity of tablet 00:00: mouth 2 [place] (two) Medical times Branch daily. carvediloL 2019-02- No [id number] 6.25mg Take 1 [facility] 6.25 mg 2-16 02-05 tablet by ity of tablet 00:00: 00:00 mouth 2 [place] 00 :00 (two) Medical times Branch daily. carvediloL 2019-02- No [id number] 6.25mg Take 1 [facility] 6.25 mg 2-16 02-05 tablet by ity of tablet 00:00: 00:00 mouth 2 [place] 00 :00 (two) Medical times Branch daily. insulin NPH 2019-02- No [id number] 50U inject 50 Univers and regular 2-16 01-16 Units ity of human 70-30 00:00: 05:59 under the [place] (NOVOLIN 00 :00 skin every Medic al 70/30 U-100 morning Branc h INSULIN) and 100 unit/mL evening (70-30) for 30 injection days. KCL 20 2019-02- No [id number] 20meq Take 15 mL [facility] mEq/15 mL -16 -16 by mouth 2 ity of solution 00:00: 05:59 (two) [place] 00 :00 times Medical daily for Branch 30 days. glipiZIDE 2019-02- No [id number] 10mg Take 1 [facility] 10 mg -24 02-16 tablet by ity of tablet 00:00: 05:59 mouth 2 [place] 00 :00 (two) Medical times [place] daily before breakfast and dinner for 30 days. simvastatin 2019-02- No [id number] 10mg Take 1 [facility] 10 mg -24 02- tablet by ity of tablet 00:00: 05:59 mouth at [place] 00 :00 bedtime Medical for 30 Branch days. insulin NPH 2019-02- No [id number] 50U inject 50 Univers and regular 2-16 -16 Units ity of human 70-30 00:00: 05:59 under the [place] (NOVOLIN 00 :00 skin every Medic al 70/30 U-100 morning Branc h INSULIN) and 100 unit/mL evening (70-30) for 30 injection days. KCL 20 2019-02- No [id number] 20meq Take 15 mL [facility] mEq/15 mL 03-2716 by mouth 2 ity of solution 00:00: 05:59 (two) [place] 00 :00 times Medical daily for Branch 30 days. glipiZIDE 2019-02- No [id number] 10mg Take 1 [facility] 10 mg 2-16 -16 tablet by ity of tablet 00:00: 05:59 mouth 2 [place] 00 :00 (two) Medical times [place] daily before breakfast and dinner for 30 days. simvastatin 2019-02- No [id number] 10mg Take 1 [facility] 10 mg 2-16 -16 tablet by ity of tablet 00:00: 05:59 mouth at [place] 00 :00 bedtime Medical for 30 Branch days. insulin NPH 2019-02- No [id number] 50U inject 50 Univers and regular 2-16 01-16 Units ity of human 70-30 00:00: 05:59 under the [place] (NOVOLIN 00 :00 skin every Medic al 70/30 U-100 morning Branc h INSULIN) and 100 unit/mL evening (70-30) for 30 injection days. KCL 20 2019-02- No [id number] 20meq Take 15 mL [facility] mEq/15 mL 2-16 -16 by mouth 2 ity of solution 00:00: 05:59 (two) [place] 00 :00 times Medical daily for Branch 30 days. glipiZIDE 2019-02- No [id number] 10mg Take 1 [facility] 10 mg 2-16 -16 tablet by ity of tablet 00:00: 05:59 mouth 2 [place] 00 :00 (two) Medical times Branch daily before breakfast and dinner for 30 days. simvastatin 2019-02- No [id number] 10mg Take 1 [facility] 10 mg 2-16 -16 tablet by ity of tablet 00:00: 05:59 mouth at [place] 00 :00 bedtime Medical for 30 Branch days. insulin NPH 2019-02- No [id number] 50U inject 50 [facility] and regular 2-16 01-16 Units ity of human 70-30 00:00: 05:59 under the [place] (NOVOLIN 00 :00 skin every Medic al 70/30 U-100 morning Branc h INSULIN) and 100 unit/mL evening (70-30) for 30 injection days. KCL 20 2019-02- No [id number] 20meq Take 15 mL [facility] mEq/15 mL 2-16 -16 by mouth 2 ity of solution 00:00: 05:59 (two) [place] 00 :00 times Medical daily for Branch 30 days. glipiZIDE 2019-02- No [id number] 10mg Take 1 [facility] 10 mg 2-16 -16 tablet by ity of tablet 00:00: 05:59 mouth 2 [place] 00 :00 (two) Medical times Branch daily before breakfast and dinner for 30 days. simvastatin 2019-02- No [id number] 10mg Take 1 [facility] 10 mg 2-16 -16 tablet by ity of tablet 00:00: 05:59 mouth at [place] 00 :00 bedtime Medical for 30 Branch days. insulin NPH 2019-02- No [id number] 50U inject 50 Univers and regular 2-16 01-16 Units ity of human 70-30 00:00: 05:59 under the [place] (NOVOLIN 00 :00 skin every Medic al 70/30 U-100 morning Branc h INSULIN) and 100 unit/mL evening (70-30) for 30 injection days. KCL 20 2019-02- No [id number] 20meq Take 15 mL [facility] mEq/15 mL 2-16 -16 by mouth 2 ity of solution 00:00: 05:59 (two) [place] 00 :00 times Medical daily for Branch 30 days. glipiZIDE 2019-02- No [id number] 10mg Take 1 [facility] 10 mg 2-16 -16 tablet by ity of tablet 00:00: 05:59 mouth 2 [place] 00 :00 (two) Medical times [place] daily before breakfast and dinner for 30 days. simvastatin 2019-02- No [id number] 10mg Take 1 [facility] 10 mg 2-16 -16 tablet by ity of tablet 00:00: 05:59 mouth at [place] 00 :00 bedtime Medical for 30 Branch days. insulin NPH 2019-02- No [id number] 50U inject 50 Univers and regular 2-16 01-16 Units ity of human 70-30 00:00: 05:59 under the [place] (NOVOLIN 00 :00 skin every Medic al 70/30 U-100 morning Branc h INSULIN) and 100 unit/mL evening (70-30) for 30 injection days. KCL 20 2019-02- No [id number] 20meq Take 15 mL [facility] mEq/15 mL 2-16 -16 by mouth 2 ity of solution 00:00: 05:59 (two) [place] 00 :00 times Medical daily for Branch 30 days. glipiZIDE 2019-02- No [id number] 10mg Take 1 [facility] 10 mg 2-16 -16 tablet by ity of tablet 00:00: 05:59 mouth 2 [place] 00 :00 (two) Medical times [place] daily before breakfast and dinner for 30 days. simvastatin 2019-02- No [id number] 10mg Take 1 [facility] 10 mg 03-27 tablet by ity of tablet 00:00: 05:59 mouth at [place] 00 :00 bedtime Medical for 30 Branch days. insulin NPH 2019-02- No [id number] 50U inject 50 Univers and regular 2-24 02- Units ity of human 70-30 00:00: 05:59 under the [place] (NOVOLIN 00 :00 skin every Medic al 70/30 U-100 morning Branc h INSULIN) and 100 unit/mL evening (70-30) for 30 injection days. KCL 20 2019-02- No [id number] 20meq Take 15 mL [facility] mEq/15 mL 03-27 by mouth 2 ity of solution 00:00: 05:59 (two) [place] 00 :00 times Medical daily for Branch 30 days. glipiZIDE 2019-02- No [id number] 10mg Take 1 [facility] 10 mg 03-27 tablet by ity of tablet 00:00: 05:59 mouth 2 [place] 00 :00 (two) Medical times [place] daily before breakfast and dinner for 30 days. simvastatin 2019-02- No [id number] 10mg Take 1 [facility] 10 mg 03-27 tablet by ity of tablet 00:00: 05:59 mouth at [place] 00 :00 bedtime Medical for 30 Branch days. bumetanide 2019-02- No [id number] 3mg Take 3 Univers 1 mg tablet 03-27 tablets by i ty of 00:00: 05:59 mouth [place] 00 :00 every Medical morning Branch and evening for 20 days. bumetanide 2019-02- No [id number] 3mg Take 3 [facility] 1 mg tablet 03-27- tablets by i ty of 00:00: 05:59 mouth [place] 00 :00 every Medical morning Branch and evening for 20 days. bumetanide 2019-02- No [id number] 3mg Take 3 [facility] 1 mg tablet 03-27 tablets by i ty of 00:00: 05:59 mouth [place] 00 :00 every Medical morning Branch and evening for 20 days. doxycycline 2019-02 No [id number] 100mg Take 1 [facility] hyclate 100 2-16 12-22 capsule by i ty of mg capsule 00:00: 05:59 mouth [place] 00 :00 every 12 Medical (twelve) Branch hours for 5 days. doxycycline 2019-02- No [id number] 100mg Take 1 [facility] hyclate 100 2-16 12-22 capsule by i ty of mg capsule 00:00: 05:59 mouth [place] 00 :00 every 12 Medical (twelve) Branch hours for 5 days. doxycycline 2019-02- No [id number] 100mg Take 1 [facility] hyclate 100 2-16 12-22 capsule by i ty of mg capsule 00:00: 05:59 mouth [place] 00 :00 every 12 Medical (twelve) Branch hours for 5 days. bumetanide 2019-02- No [id number] 3mg Take 1.5 Univers 2 mg tablet -16 12-16 tablets by i ty of 00:00: 00:00 mouth [place] 00 :00 every Medical morning Branch and evening. carvediloL 2019-02- No [id number] 6.25mg Take 1 [facility] 6.25 mg -16 12-16 tablet by ity of tablet 00:00: 00:00 mouth 2 [place] 00 :00 (two) Medical times Branch daily for 30 days. insulin NPH 2019-02- No [id number] 50U inject 50 Univers and regular 2-16 12-16 Units ity of human 70-30 00:00: 00:00 under the [place] (NOVOLIN 00 :00 skin every Medic al 70/30 U-100 morning Branc h INSULIN) and 100 unit/mL evening (70-30) for 30 injection days. KCL 20 2019-02- No [id number] 20meq Take 15 mL [facility] mEq/15 mL -16 -16 by mouth 2 ity of solution 00:00: 00:00 (two) [place] 00 :00 times Medical daily for Branch 30 days. glipiZIDE 2019-02- No [id number] 10mg Take 1 [facility] 10 mg 2-16 12-16 tablet by ity of tablet 00:00: 00:00 mouth 2 [place] 00 :00 (two) Medical times Branch daily before breakfast and dinner for 30 days. simvastatin 2019-02- No [id number] 10mg Take 1 [facility] 10 mg 2-16 12-16 tablet by ity of tablet 00:00: 00:00 mouth at [place] 00 :00 bedtime Medical for 30 Branch days. cefTRIAXone 2019-02 Yes 1000mg 1,000 mg, Univers (ROCEPHIN) 2-15 IV ity of 1,000 mg in 17:45: Piggyback, [place] NaCl 0.9% 00 Q24H ABX, Medic al (NS) 50 mL First dose Bra nch MINI-BAG on Thu01/24/20 at 1145, Until Discontinu ed, 50 mL
Reas on for Anti-Infec tive: Empiric Therapy for Suspected Infection< br>Empiric Therapy Site: Skin / Soft tissue
Duration of therapy: 72 hours pseudoephed 2019-02 Yes 30mg 30 mg, Univ ers rine 2-15 Oral, ity of (SUDAFED) 07:29: Q6HPRN, [place] tablet 30 13 Starting Medica l mg [facility] 01/24/20 at 0129, Until Discontinu ed, Routine, congestion sulfur 2019-02 2020- No 5mL 5 mL, Univers hexafluorid 2-14 12-14 Intravenou i ty of e microsphr 16:30: 16:30 s, ONCE, 1 [place] (LUMASON) 00 :00 dose, Mon Medic al injection 5 01/23/20 Bran ch mL at 1030, Routine
[employer] member approving Restricted medication : HERNANDEZ GARCIA KCL 20 2019-02 Yes 20meq 20 mEq, Univers mEq/15 mL 2-13 Oral, BID, ity of solution 20 19:00: First dose [place] mEq 00 (after Medical last Branch modificati on) on [place] 01/22/20 at 1300, Until Discontinu ed, Routine simvastatin 2019-02 Yes 10mg 10 mg, Univ ers (ZOCOR) 2-13 Oral, QHS, ity of tablet 10 03:00: First dose [place] mg 00 on [facility] Medical 01/21/20 Branch at 2100, Until Discontinu ed, Routine cyanocobala 2019-02 Yes 1000ug 1,000 mcg, Univers min 2-13 Subcutaneo ity of (VITAMIN 02:45: us, Q24H, [place] B12) 00 First dose Medical injection on [facility] Branch 1,000 mcg 01/21/20 at 2045, Until Discontinu ed, Routine Polyethylen 2019-02 Yes 17g 17 g, Unive rs e Glycol 2-13 Oral, ity of 3350 02:09: [id number], [place] (MIRALAX) 39 Starting Medica l powder 17 g Sat Branch 01/21/20 at 2009, Until Discontinu ed, Routine, Constipati on ergocalcife 2019-02 Yes [id number] 50,000 Un carlos manuel rol 2-13 Units, ity of (vitamin 01:30: Oral, [place] d2) 56 QWEEKLY, Medical (CALCIFEROL First dose Br anch ) capsule on Sat 50,000 01/21/20 Units at 1945, Until Discontinu ed, Routine SITagliptin 2019-02 Yes 50mg 50 mg, Univ ers (JANUVIA) 2-13 Oral, ity of tablet 50 01:30: DAILY, [place] mg 00 First dose Medical on [facility] Branch 01/21/20 at 1930, Until Discontinu ed, Routine glipiZIDE 2019-02 Yes 10mg 10 mg, Univer s (GLUCOTROL) 2-13 Oral, ity of tablet 10 01:30: BIDAC, [place] mg 00 First dose Medical on [facility] Branch 01/21/20 at 1930, Until Discontinu ed, Routine lactobacill 2019-02 Yes 1{tbl} 1 tablet, Univers us 2-13 Oral, BID, ity of acidophilus 01:30: First dose [place] (ACIDOPHILL 00 on Sat Medica l US) 25 01/21/20 Branch million at 1930, cell -100 Until mg captab 1 Discontinu tablet ed, Routine magnesium 2019-02 2020- No 2000mg 2,000 mg, Univers sulfate in 2-12 -12 IV ity of water 2 16:30: 19:57 Infusion, [place] gram/50 mL 00 :00 ONCE, 1 Medica l (4 %) 2,000 dose, [facility] Bra nch mg 01/21/20 piggyback at 1030 magnesium 2019- Yes 400mg 400 mg, Univ ers oxide 2-12 Oral, BID, ity of (MAG-OX 15:30: First dose [place] 400) tablet 00 on Sat Medica l 400 mg 01/21/20 Branch at 0930, Until Discontinu ed, Routine carvediloL 2019-02 Yes 6.25mg 6.25 mg, U nivers (COREG) 2-12 Oral, BID, ity of tablet 6.25 14:00: First dose [place] mg 00 (after Medical last Branch modificati on) on Thu01/21/20 at 0800, Until Discontinu ed, Routine vancomycin 2019-02- No 1000mg 1,000 mg, Univers (VANCOCIN) 03-23 IV ity of 1,000 mg in 03:45: 17:10 Piggyback, [place] NaCl 0.9% 00 :58 Q12H ABX, Medic al (NS) 250 mL First dose Br anch VIAL-MATE (after IV last piggyback reorder) on Thu01/20/20 at 2145, Until Discontinu ed, 250 mL
Reas on for Anti-Infec tive: Documented Infection< br>Documen teri Infection Site: Skin / Soft Tissue
Duration of Therapy: Other (see Comments) aspirin 2019-02 Yes 81mg 81 mg, Univers chewable 03-23 Oral, QAM ity of tablet 81 02:45: WITH [place] mg 00 BREAKFAST, Medical First dose Branch on Thu01/20/20 at 2044, Until Discontinu ed, Routine metOLazone 2019-02- No 5mg 5 mg, Unive rs (ZAROXOLYN) 03-23 Oral, ity of tablet 5 mg 02:45: 13:46 DAILY, [place] 00 :04 First dose Medical (after Branch last modificati on) on Thu01/20/20 at 2044, Until Discontinu ed, Routine bumetanide 2019-02- No 2mg 2 mg, Slow Univers (BUMEX) 03-23 IV Push, ity of injection 2 02:45: 14:16 Q6H, First [place] mg 00 :58 dose on Medical Fri Branch 01/20/20 at 2044, Until Discontinu ed, Routine
Indicatio n: Decompensa teri heart failure/vo lume overload and not responsive to IV furosemide KCL 20 2019-02- No 20meq 20 mEq, Univer s mEq/15 mL 03-23- Oral, BID, ity of solution 20 02:45: 18:12 First dose [place] mEq 00 :27 on Fri Medical 01/20/20 Branch at 2045, Until Discontinu ed, Routine enoxaparin 2019-02 Yes 40mg 40 mg, Unive rs (LOVENOX) 2-11 Subcutaneo ity of injection 23:00: us, DAILY, [place] 40 mg 00 First dose Medical on Thu Branch 01/20/20 at 1700, Until Discontinu ed, Routine insulin NPH 2019-02 Yes 50U 50 Units, U nivers and regular 2-11 Subcutaneo it y of human 70-30 15:00: us, [place] (HUMULIN 00 QAM+PM, Medical 70-30 U-100 First dose Br anch INSULIN) (after 100 unit/mL last (70-30) modificati injection on) on Thu 50 Units 01/20/20 at 0900, Until Discontinu ed, Routine cetirizine 2019-02 Yes 5mg 5 mg, Univer s (ZYRTEC) 03-22 Oral, ity of tablet 5 mg 15:00: DAILY, [place] 00 First dose Medical on Thu Branch 01/20/20 at 0900, Until Discontinu ed, Routine bumetanide 2019-02 2020- No 2mg 2 mg, Unive rs (BUMEX) 03-22 Oral, ity of tablet 2 mg 15:00: 02:40 QAM+PM, [place] 00 :36 First dose Medical on Thu Branch 01/20/20 at 0900, Until Discontinu ed, Routine metOLazone 2019-02 2020- No 5mg 5 mg, Unive rs (ZAROXOLYN) 03-22- Oral, Q ity of tablet 5 mg 15:00: 02:40 DAY, [place] 00 :37 First dose Medical on Thu Branch 01/20/20 at 0900, Until Discontinu ed, Routine spironolact 2019-02 Yes 50mg 50 mg, Univ ers one - Oral, BID, ity of (ALDACTONE) 14:00: First dose [place] tablet 50 00 on Thu Medical mg 01/20/20 Branch at 0800, Until Discontinu ed, Routine carvediloL 2019-02 2020- No 12.5mg 12.5 mg, Univers (COREG) 03-22 Oral, BID, ity o f tablet 12.5 14:00: 02:40 First dose [place] mg 00 :37 on Fri Medical 01/20/20 Branch at 0800, Until Discontinu ed, Routine Sliding 2019-02 Yes Subcutaneo Univ ers Scale 2-11 us, AC, ity of Insulin-Reg 13:30: First dose [place] ular + Fsbg 00 on Fri Medica l Testing 01/20/20 Branch at 0730, Until Discontinu ed, Routine HYDROcodone 2019-02 Yes 1{tbl} 1 tablet, Univers -acetaminop 2-11 Oral, ity of hen (NORCO) 07:47: Q6HPRN, [place] as 10-325 mg 14 Starting Medica l tablet 1 Fri Branch tablet 01/20/20 at 0147, Until Discontinu ed, Routine, Pain (scale 4-6) piperacilli 2019-02- No 3.375g 3.375 g, Univers n-tazobacta 03-22-15 IV ity of m (ZOSYN) 07:15: 16:33 Piggyback, [place] 3.375 g in 00 :06 Q6H ABX, Medic al NaCl 0.9% First dose Bran ch (NS) 100 mL on Thu MINI-BAG 01/20/20 at 0115, Until Discontinu ed, 100 mL
R dariana for Anti-Infec tive: Empiric Therapy for Suspected Infection< br>Empiric Therapy Site: Skin / Soft tissue
Duration of therapy: 7 days morpHINE 2019-02 Yes 2mg 2 mg, Slow Uni vers injection 2 -11 IV Push, ity of mg 06:23: Q4HPRN, [place] 57 Starting Medical Fri Branch 01/20/20 at 0023, Until Discontinu ed, Routine, Pain (scale 7-10) acetaminoph 2019-02 Yes 650mg 650 mg, Un carlos manuel en 2-11 Oral, ity of (TYLENOL) 06:23: Q6HPRN, [place] tablet 650 46 Starting Medic al mg Fri Branch 01/20/20 at 0023, Until Discontinu ed, Routine, Pain (scale 1-3) gabapentin 2019-02- No 400mg Take 400 U nivers 400 mg 2-11 12-11 mg by ity of capsule 06:22: 00:00 mouth as [place] 41 :00 needed. Medical Branch losartan 25 2020-1 2020- No 25mg Take 25 mg Univers mg tablet 03-22 by mouth ity o f 06:22: 00:00 at [place] 41 :00 bedtime. Medical Branch metFORMIN 2019-02 2020- No 500mg Take 500 Un carlos manuel 500 mg 03-22 mg by ity of tablet 06:22: 00:00 mouth 2 [place] 41 :00 (two) Medical times Branch daily with meals. simvastatin 2019-02- No 40mg Take 40 mg Univers 40 mg 03-22 by mouth ity of tablet 06:22: 00:00 at [place] 41 :00 bedtime. Medical Branch ondansetron 2019-02 Yes 4mg 4 mg, Slow Univers (ZOFRAN 2-11 IV Push, ity of (PF)) 06:20: Q6HPRN, [place] injection 4 02 Starting Medi amarilis mg Fri Branch 01/20/20 at 0020, Until Discontinu ed, Routine, Nausea and Vomiting (N/V) glucagon 2019-02 Yes 1mg 1 mg, Univers (GLUCAGEN 211 Intramuscu ity of DIAGNOSTIC 06:18: lar, PRN, [place] KIT) 01 Starting Medical injection 1 [facility] [place] [facility] Branch mg 01/20/20 at 0018, Until Discontinu ed, ANUSHA, Blood Glucose < or = 70 mg/dL and patient is unable to swallow or has mental changes. dextrose 50 2019-02 Yes 25mL 25 mL, Univ ers % in water 211 Slow IV ity of (D50W) 06:18: Push, PRN, [place] injection 00 Starting Medica l 25 mL Fri Branch 01/20/20 at 0018, Until Discontinu ed, ANUSHA, Blood Glucose < or = 70 mg/dL and patient is unable to swallow or has mental status changes. zolpidem 2019-02 Yes 5mg 5 mg, Univers (AMBIEN) 2-11 Oral, ity of tablet 5 mg 06:17: QHSPRN, [place] 51 Starting Medical Fri Branch 01/20/20 at 0017, Until Discontinu ed, Routine, Insomnia ALPRAZolam 2019-02 Yes .5mg 0.5 mg, Univ ers (XANAX) 2-11 Oral, ity of tablet 0.5 06:15: TIDPRN, [place] mg 54 Starting [facility] Branch 01/20/20 at 0015, Until Discontinu ed, Routine, anxiety vancomycin 2019- 2020- No 1000mg 1,000 mg, Univers (VANCOCIN) 03-22 IV ity of 1,000 mg in 04:30: 04:46 Piggyback, [place] NaCl 0.9% 00 :00 ONCE, 1 Medical (NS) 250 mL dose, [facility] VIAL-MATE 01/19/20 IV at 2230, piggyback 250 mL
Reas on for Anti-Infec tive: Documented Infection< br>Documen teri Infection Site: Skin / Soft Tissue
Duration of Therapy: Other (see Comments) furosemide 2019- 2020- No 40mg 40 mg, IV U nivers (LASIX) 03-22 Push, ity of injection 03:45: 02:38 ONCE, 1 [place] 40 mg 00 :00 dose, [facility] 01/19/20 Branch at 2145, ANUSHA hydrOXYzine 2020-0 Yes 25mg Take 25 mg Univers 25 mg 9-04 by mouth 3 ity of capsule 00:00: (three) [place] 00 times Medical daily as Branch needed. hydrOXYzine 2020-0 Yes 25mg Take 25 mg [facility] 25 mg 9-04 by mouth 3 ity of capsule 00:00: (three) [place] 00 times Medical daily as Branch needed. hydrOXYzine 2020-0 Yes 25mg Take 25 mg [facility] 25 mg 9-04 by mouth 3 ity of capsule 00:00: (three) [place] 00 times Medical daily as Branch needed. hydrOXYzine 2020-0 Yes 25mg Take 25 mg [facility] 25 mg 9-04 by mouth 3 ity of capsule 00:00: (three) [place] 00 times Medical daily as Branch needed. hydrOXYzine 2020-0 Yes 25mg Take 25 mg [facility] 25 mg 9-04 by mouth 3 ity of capsule 00:00: (three) [place] 00 times Medical daily as Branch needed. hydrOXYzine 2020-0 Yes 25mg Take 25 mg [facility] 25 mg 9-04 by mouth 3 ity of capsule 00:00: (three) [place] 00 times Medical daily as Branch needed. hydrOXYzine 2020-0 Yes 25mg Take 25 mg [facility] 25 mg 9-04 by mouth 3 ity of capsule 00:00: (three) [place] 00 times Medical daily as Branch needed. hydrOXYzine 2020-0 Yes 25mg Take 25 mg [facility] 25 mg 9-04 by mouth 3 ity of capsule 00:00: (three) [place] 00 times Medical daily as Branch needed. hydrOXYzine 2020-0 Yes 25mg Take 25 mg [facility] 25 mg 9-04 by mouth 3 ity of capsule 00:00: (three) [place] 00 times Medical daily as Branch needed. hydrOXYzine 2020-0 Yes 25mg Take 25 mg [facility] 25 mg 9-04 by mouth 3 ity of capsule 00:00: (three) [place] 00 times Medical daily as Branch needed. hydrOXYzine 2019-0 Yes 25mg Take 25 mg [facility] 25 mg 9-04 by mouth 3 ity of capsule 00:00: (three) [place] 00 times Medical daily as Branch needed. albuterol 2020- No 2{puff} Inhale 2 [facility] 90 09-14 03-18 Puffs ity of mcg/actuati 00:00: 00:00 every 6 [place] on inhaler 00 :00 (six) Medical hours as Branch needed. Insulin 2020- No 80U inject 80 Univ ers NPH-Regular 09-14 03-18 Units ity of Human Rec 00:00: 00:00 under the [place] (NOVOLIN 00 :00 skin 2 Medical 70-30 (two) Branch FLEXPEN times U-100) 100 daily with unit/mL meals. (70-30) injection gabapentin 2018-02 Yes 400mg Take 400 Un [place] [facility] 400 mg 1-12 mg by ity of capsule 17:37: mouth as [place] [address] needed. Medical Branch losartan 25 2018-02 Yes 25mg Take 25 mg [facility] mg tablet 1-12 by mouth ity of 17:37: at [place] [address] bedtime. Medical Branch metFORMIN 2018-02 Yes 500mg Take 500 Uni vers 500 mg 1-12 mg by ity of tablet 17:37: mouth 2 [place] [address] (two) Medical times Branch daily with meals. simvastatin 2018-02 Yes 40mg Take 40 mg [facility] 40 mg 1-12 by mouth ity of tablet 17:37: at [place] [address] bedtime. Medical Branch montelukast 2018-02 Yes 10mg Take 10 mg Univers (SINGULAIR) 1-12 by mouth. ity of 10 mg 17:37: [place] tablet 33 Medical Branch gabapentin 2018-02 Yes 400mg Take 400 Un [place] 400 mg 1-12 mg by ity of capsule 17:37: mouth as [place] [address] needed. Medical Branch losartan 25 2018-02 Yes 25mg Take 25 mg [facility] mg tablet 1-12 by mouth ity of 17:37: at [place] [address] bedtime. Medical Branch metFORMIN 2018- Yes 500mg Take 500 Uni vers 500 mg 1-12 mg by ity of tablet 17:37: mouth 2 [place] [address] (two) Medical times Branch daily with meals. simvastatin 2018-02 Yes 40mg Take 40 mg Univers 40 mg 1-12 by mouth ity of tablet 17:37: at [place] [address] bedtime. Medical Branch montelukast 2018-02 Yes 10mg Take 10 mg Univers (SINGULAIR) 1-12 by mouth. ity of 10 mg 17:37: [place] tablet 33 Medical Branch bumetanide 2018-02 Yes [id number] 2mg Take 1 Univers 2 mg tablet 1-12 tablet by ity of 00:00: mouth [place] 00 every Medical morning Branch and evening. potassium 2018-02 Yes [id number] 40meq Take 15 mL Univers chloride 40 1-12 by mouth 2 it y of mEq/15 mL 00:00: (two) [place] solution 00 times Medical daily. Branch spironolact 2018-02 Yes [id number] 50mg Take 1 Univers one 50 mg 1-12 tablet by ity o f tablet 00:00: mouth 2 [place] [address] (two) Medical times Branch daily. Lactobacill 2018-02 Yes [id number] 1{tbl} Take 1 [facility] us Acidoph 1-12 tablet by ity of & [place] 1 00:00: mouth 3 [place] million 00 (three) Medical cell Tab times Branch daily. bumetanide 2018-02 Yes [id number] 2mg Take 1 [facility] 2 mg tablet 1-12 tablet by ity of 00:00: mouth [place] 00 every Medical morning Branch and evening. potassium 2018-02 Yes [id number] 40meq Take 15 mL [facility] chloride 40 1-12 by mouth 2 it y of mEq/15 mL 00:00: (two) [place] solution 00 times Medical daily. Branch spironolact 2018-02 Yes [id number] 50mg Take 1 Univers one 50 mg 1-12 tablet by ity o f tablet 00:00: mouth 2 [place] 00 (two) Medical times Branch daily. Lactobacill 2018-02 Yes [id number] 1{tbl} Take 1 [facility] us Acidoph 1-12 tablet by ity of & [place] 1 00:00: mouth 3 [place] million 00 (three) Medical cell Tab times Branch daily. spironolact 2018-02 Yes [id number] 50mg Take 1 [facility] one 50 mg 1-12 tablet by ity o f tablet 00:00: mouth 2 [place] 00 (two) Medical times Branch daily. Lactobacill 2018-02 Yes [id number] 1{tbl} Take 1 [facility] us Acidoph 1-12 tablet by ity of & [place] 1 00:00: mouth 3 [place] million 00 (three) Medical cell Tab times Branch daily. spironolact 2018-02 Yes [id number] 50mg Take 1 [facility] one 50 mg 1-12 tablet by ity o f tablet 00:00: mouth 2 [place] 00 (two) Medical times Branch daily. Lactobacill 2018-02 Yes [id number] 1{tbl} Take 1 [facility] us Acidoph 1-12 tablet by ity of & [place] 1 00:00: mouth 3 [place] million 00 (three) Medical cell Tab times Branch daily. spironolact 2018-02 Yes [id number] 50mg Take 1 [facility] one 50 mg 1-12 tablet by ity o f tablet 00:00: mouth 2 [place] 00 (two) Medical times Branch daily. Lactobacill 2018-02 Yes [id number] 1{tbl} Take 1 [facility] us Acidoph 1-12 tablet by ity of & [place] 1 00:00: mouth 3 [place] million 00 (three) Medical cell Tab times Branch daily. spironolact 2018-02 Yes [id number] 50mg Take 1 [facility] one 50 mg 1-12 tablet by ity o f tablet 00:00: mouth 2 [place] 00 (two) Medical times Branch daily. Lactobacill 2018-02 Yes [id number] 1{tbl} Take 1 [facility] us Acidoph 1-12 tablet by ity of & [place] 1 00:00: mouth 3 [place] million 00 (three) Medical cell Tab times Branch daily. Lactobacill 2018-02 Yes [id number] 1{tbl} Take 1 [facility] us Acidoph 1-12 tablet by ity of & [place] 1 00:00: mouth 3 [place] million 00 (three) Medical cell Tab times Branch daily. Lactobacill 2018-02 Yes [id number] 1{tbl} Take 1 Univers us Acidoph 1-12 tablet by ity of & [place] 1 00:00: mouth 3 [place] million 00 (three) Medical cell Tab times Branch daily. Lactobacill 2018-02 Yes [id number] 1{tbl} Take 1 [facility] us Acidoph 1-12 tablet by ity of & [place] 1 00:00: mouth 3 [place] million 00 (three) Medical cell Tab times Branch daily. Lactobacill 2018-02 Yes [id number] 1{tbl} Take 1 Univers us Acidoph 1-12 tablet by ity of & [place] 1 00:00: mouth 3 [place] million 00 (three) Medical cell Tab times Branch daily. Lactobacill 2018-02 Yes [id number] 1{tbl} Take 1 [facility] us Acidoph 1-12 tablet by ity of & [place] 1 00:00: mouth 3 [place] million 00 (three) Medical cell Tab times Branch daily. Lactobacill 2018-02 Yes [id number] 1{tbl} Take 1 [facility] us Acidoph 1-12 tablet by ity of & [place] 1 00:00: mouth 3 [place] million 00 (three) Medical cell Tab times Branch daily. Lactobacill 2018-02 Yes [id number] 1{tbl} Take 1 [facility] us Acidoph 1-12 tablet by ity of & [place] 1 00:00: mouth 3 [place] million 00 (three) Medical cell Tab times Branch daily. spironolact 2018-02- No [id number] 50mg Take 1 Univers one 50 mg 1-12 01-10 tablet by ity of tablet 00:00: 00:00 mouth 2 [place] 00 :00 (two) Medical times Branch daily. spironolact 2018-02- No [id number] 50mg Take 1 Univers one 50 mg 1-12 01-10 tablet by ity of tablet 00:00: 00:00 mouth 2 [place] 00 :00 (two) Medical times Branch daily. spironolact 2018-02- No [id number] 50mg Take 1 Univers one 50 mg 1-12 01-10 tablet by ity of tablet 00:00: 00:00 mouth 2 [place] 00 :00 (two) Medical times Branch daily. bumetanide 2018-02- No [id number] 2mg Take 1 Univers 2 mg tablet 02-2016 tablet by it y of 00:00: 00:00 mouth [place] 00 :00 every Medical morning Branch and evening. potassium 2018-02- No [id number] 40meq Take 15 mL Univers chloride 40 02-2016 by mouth 2 i ty of mEq/15 mL 00:00: 00:00 (two) [place] solution 00 :00 times Medical daily. Branch ipratropium Yes 3mL 3 mL, Unive rs -albuterol 9-05 Inhalation ity of (DUONEB) 13:00: , QID, [place] 0.5 mg-3 00 First dose Medic al mg(2.5 mg on [facility] Branch base)/3 mL 10/14/18 at nebulizer 0800, solution 3 Until mL Discontinu ed, Routine cephALEXin Yes [id number] 500mg Take 1 Univers (KEFLEX) 9-04 capsule by ity o f 500 mg 00:00: mouth 2 [place] capsule 00 (two) Medical times Branch daily. albuterol Yes [id number] 2.5mg Inhale 3 Univers 2.5 mg /3 9-04 mL every 4 ity of mL (0.083 00:00: (four) [place] %) 00 hours. May Medical nebulizer also Branch solution nebulize one extra every 6 hours. albuterol Yes [id number] 2{puff} Inhale 2 Univers 90 9-04 Puffs ity of mcg/actuati 00:00: every 4 [place] on inhaler 00 (four) Medical hours as Branch needed for Wheezing, Shortness of Breath, Bronchospa sm or Chest tightness. albuterol Yes [id number] 2.5mg Inhale 3 Univers 2.5 mg /3 9-04 mL every 4 ity of mL (0.083 00:00: (four) [place] %) 00 hours. May Medical nebulizer also Branch solution nebulize one extra every 6 hours. albuterol Yes [id number] 2{puff} Inhale 2 Univers 90 9-04 Puffs ity of mcg/actuati 00:00: every 4 [place] on inhaler 00 (four) Medical hours as Branch needed for Wheezing, Shortness of Breath, Bronchospa sm or Chest tightness. albuterol 2018- Yes [id number] 2.5mg Inhale 3 Univers 2.5 mg /3 9-04 mL every 4 ity of mL (0.083 00:00: (four) [place] %) 00 hours. May Medical nebulizer also Branch solution nebulize one extra every 6 hours. albuterol 2018- Yes [id number] 2{puff} Inhale 2 Univers 90 9-04 Puffs ity of mcg/actuati 00:00: every 4 [place] on inhaler 00 (four) Medical hours as Branch needed for Wheezing, Shortness of Breath, Bronchospa sm or Chest tightness. albuterol 2020- No [id number] 2.5mg Inhale 3 Univers 2.5 mg /3 9-04 12-11 mL every 4 ity of mL (0.083 00:00: 00:00 (four) [place] %) 00 :00 hours. May Medical nebulizer also Branch solution nebulize one extra every 6 hours. albuterol 2019- No [id number] 2{puff} Inhale 2 Univers 90 9-04 12-11 Puffs ity of mcg/actuati 00:00: 00:00 every 4 [place] on inhaler 00 :00 (four) Medical hours as Branch needed for Wheezing, Shortness of Breath, Bronchospa sm or Chest tightness. metOLazone 2018- Yes [id number] 5mg Take 1 Univers 5 mg tablet 8-19 tablet by ity of 00:00: mouth [place] 00 every Medical other day. Branch metOLazone 2018- Yes [id number] 5mg Take 1 Univers 5 mg tablet 8-19 tablet by ity of 00:00: mouth [place] 00 every Medical other day. Branch metOLazone 2018- Yes [id number] 5mg Take 1 Univers 5 mg tablet 8-19 tablet by ity of 00:00: mouth [place] 00 every Medical other day. Branch metOLazone 2018- Yes [id number] 5mg Take 1 Univers 5 mg tablet 8-19 tablet by ity of 00:00: mouth [place] 00 every Medical other day. [place] metOLazone 2018- Yes [id number] 5mg Take 1 Univers 5 mg tablet 8-19 tablet by ity of 00:00: mouth [place] 00 every Medical other day. Branch metOLazone 2020- No [id number] 5mg Take 1 Univers 5 mg tablet 8- 12-16 tablet by it y of 00:00: 00:00 mouth [place] 00 :00 every Medical other day. Branch metOLazone 2019- No [id number] 5mg Take 1 Univers 5 mg tablet 8-19 08-17 tablet by it y of 00:00: 00:00 mouth [place] 00 :00 every Medical other day. Branch gabapentin 2018- Yes 400mg Take 400 Un [place] 400 mg 8-17 mg by ity of capsule 19:54: mouth 2 [place] [address] (two) Medical times Branch daily. losartan 25 2018-0 Yes 25mg Take 25 mg Univers mg tablet 8-17 by mouth ity of 19:54: at [place] [address] bedtime. Medical Branch metFORMIN Yes 500mg Take 500 Uni vers 500 mg 8-17 mg by ity of tablet 19:54: mouth 2 [place] [address] ([facility]) Medical times [place] daily with meals. simvastatin 2018-0 Yes 40mg Take 40 mg Univers 40 mg 8-17 by mouth ity of tablet 19:54: at [place] [address] bedtime. Medical Branch montelukast 0 Yes 10mg Take 10 mg Univers (SINGULAIR) 8-17 by mouth. ity of 10 mg 19:54: [place] tablet Medical Branch gabapentin 2018-0 Yes 400mg Take 400 Un [place] 400 mg 8-17 mg by ity of capsule 19:54: mouth 2 [place] [address] (two) Medical times Branch daily. losartan 25 0 Yes 25mg Take 25 mg Univers mg tablet 8-17 by mouth ity of 19:54: at [place] [address] bedtime. Medical Branch metFORMIN 2018-0 Yes 500mg Take 500 Uni vers 500 mg 8-17 mg by ity of tablet 19:54: mouth 2 [place] [address] (two) Medical times [place] daily with meals. simvastatin 2019-0 Yes 40mg Take 40 mg Univers 40 mg 8-17 by mouth ity of tablet 19:54: at [place] [address] bedtime. Medical Branch montelukast 2018-0 Yes 10mg Take 10 mg Univers (SINGULAIR) 8-17 by mouth. ity of 10 mg 19:54: [place] tablet 56 Medical Branch gabapentin 2018-0 Yes 400mg Take 400 Un [place] 400 mg 8-17 mg by ity of capsule 19:54: mouth 2 [place] [address] (two) Medical times Branch daily. losartan 25 Yes 25mg Take 25 mg Univers mg tablet 8-17 by mouth ity of 19:54: at [place] [address] bedtime. Medical Branch metFORMIN Yes 500mg Take 500 Uni vers 500 mg 8-17 mg by ity of tablet 19:54: mouth 2 [place] [address] (two) Medical times Branch daily with meals. simvastatin Yes 40mg Take 40 mg [facility] 40 mg 8-17 by mouth ity of tablet 19:54: at [place] [address] bedtime. Medical Branch montelukast Yes 10mg Take 10 mg [facility] (SINGULAIR) 8-17 by mouth. ity of 10 mg 19:54: [place] tablet 56 Medical Branch CARVEDILOL 2019- No 25mg Take 25 mg Univers ORAL 09-25 by mouth 2 ity of 18:06: 00:00 (two) [place] 36 :00 times Medical daily. Branch insulin NPH 2019- No 80U inject 80 Univers hum/reg 09-25-17 Units ity of insulin hm 18:06: 00:00 under the [place] (NOVOLIN 36 :00 skin 2 Medical 70/30 [place]) (two) Branch times daily. ALPRAZolam 2019- No .5mg Take 0.5 Un [facility] [facility] (XANAX) 0.5 - 08-17 mg by ity of mg tablet 18:03: 00:00 mouth 3 [place] 37 :00 (three) Medical times Branch daily. KCL 20 2019- No 40meq 40 mEq, Univer s mEq/15 mL 09-25- Oral, ity of solution 40 14:45: 15:05 ONCE, 1 [place] mEq 00 :00 dose, Sat Medical 09/25/18 at Branch 0945, Routine losartan Yes 25mg 25 mg, Univers (COZAAR) 8-17 Oral, QHS, ity o f tablet 25 02:00: First dose [place] mg 00 on Fri Medical 09/24/18 at Branch 2100, Until Discontinu ed, Routine ALPRAZolam Yes [id number] .5mg Take 1 U nivers (XANAX) 0.5 8-17 tablet by ity of mg tablet 00:00: mouth 3 (three) Medical times Branch daily. ALPRAZolam 2019- Yes [id number] .5mg Take 1 U nivers (XANAX) 0.5 8-17 tablet by ity of mg tablet 00:00: mouth 3 (three) Medical times Branch daily. bumetanide 2019- Yes [id number] 1mg Take 1 Univers 1 mg tablet 8-17 tablet by ity of 00:00: mouth 00 daily. Medical Branch levoFLOXaci 2018- Yes [id number] 750mg Take 1 Univers n 750 mg 8-17 tablet by ity of tablet 00:00: mouth 00 every 24 Medical (twenty- Branch ur) hours. carvedilol 2018- Yes [id number] 12.5mg Take 1 [facility] 12.5 mg 8-17 07 tablet by ity of tablet 00:00: mouth 2 (two) Medical times Branch daily. insulin NPH 2018- Yes [id number] 70U inject 70 Univers and regular 8-17 Units ity of human 70-30 00:00: under the [place] (NOVOLIN 00 skin every Medic al 70/30 U-100 morning Branc h INSULIN) and 100 unit/mL evening. (70-30) injection spironolact 2018- Yes [id number] 50mg Take 2 [facility] one 25 mg 8-17 tablets by ity of tablet 00:00: mouth 2 (two) Medical times Branch daily. clindamycin 2018- Yes [id number] 300mg Take 1 [facility] 300 mg 8-17 capsule by ity of capsule 00:00: mouth 4 (four) Medical times Branch daily. ALPRAZolam 2018- Yes [id number] .5mg Take 1 U nivers (XANAX) 0.5 8-17 tablet by ity of mg tablet 00:00: mouth 3 (three) Medical times Branch daily. bumetanide 2018- Yes [id number] 1mg Take 1 Univers 1 mg tablet 8-17 tablet by ity of 00:00: mouth 00 daily. Medical Branch levoFLOXaci 2018- Yes [id number] 750mg Take 1 Univers n 750 mg 8-17 tablet by ity of tablet 00:00: mouth [place] 00 every 24 Medical (twenty-fo Branch ur) hours. carvedilol 2019- Yes [id number] 12.5mg Take 1 Univers 12.5 mg 8-17 07 tablet by ity of tablet 00:00: mouth 2 (two) Medical times Branch daily. insulin NPH 2019- Yes [id number] 70U inject 70 Univers and regular 8-17 Units ity of human 70-30 00:00: under the [place] (NOVOLIN 00 skin every Medic al 70/30 U-100 morning Branc h INSULIN) and 100 unit/mL evening. (70-30) injection spironolact 2019- Yes [id number] 50mg Take 2 [facility] one 25 mg 8-17 tablets by ity of tablet 00:00: mouth 2 (two) Medical times Branch daily. clindamycin 2018-0 Yes [id number] 300mg Take 1 [facility] 300 mg 8-17 capsule by ity of capsule 00:00: mouth 4 (four) Medical times Branch daily. ALPRAZolam 2018-0 Yes [id number] .5mg Take 1 U nivers (XANAX) 0.5 8-17 tablet by ity of mg tablet 00:00: mouth 3 (three) Medical times Branch daily. bumetanide 2018-0 Yes [id number] 1mg Take 1 Univers 1 mg tablet 8-17 tablet by ity of 00:00: mouth 00 daily. Medical Branch levoFLOXaci 2018-0 Yes [id number] 750mg Take 1 Univers n 750 mg 8-17 tablet by ity of tablet 00:00: mouth 00 every 24 Medical ([facility] Branch ur) hours. carvedilol 2019- Yes [id number] 12.5mg Take 1 Univers 12.5 mg 8-17 07 tablet by ity of tablet 00:00: mouth 2 (two) Medical times Branch daily. insulin NPH 2019-0 Yes [id number] 70U inject 70 Univers and regular 8-17 Units ity of human 70-30 00:00: under the [place] (NOVOLIN 00 skin every Medic al 70/30 U-100 morning Branc h INSULIN) and 100 unit/mL evening. (70-30) injection spironolact 2018-0 Yes [id number] 50mg Take 2 [facility] one 25 mg 8-17 tablets by ity of tablet 00:00: mouth 2 (two) Medical times Branch daily. clindamycin 2019-0 Yes [id number] 300mg Take 1 [facility] 300 mg 8-17 capsule by ity of capsule 00:00: mouth 4 (four) Medical times Branch daily. ALPRAZolam 2019- Yes [id number] .5mg Take 1 U nivers (XANAX) 0.5 8-17 tablet by ity of mg tablet 00:00: mouth 3 (three) Medical times Branch daily. carvedilol 2019- Yes [id number] 12.5mg Take 1 Univers 12.5 mg 8-17 tablet by ity of tablet 00:00: mouth 2 (two) Medical times Branch daily. insulin NPH 2018- Yes [id number] 70U inject 70 Univers and regular 8-17 Units ity of human 70-30 00:00: under the [place] (NOVOLIN 00 skin every Medic al 70/30 U-100 morning Branc h INSULIN) and 100 unit/mL evening. (70-30) injection ALPRAZolam 2018- Yes [id number] .5mg Take 1 U nivers (XANAX) 0.5 8-17 tablet by ity of mg tablet 00:00: mouth (three) Medical times Branch daily. carvedilol 2018- Yes [id number] 12.5mg Take 1 Univers 12.5 mg 8-17 tablet by ity of tablet 00:00: mouth (two) Medical times Branch daily. insulin NPH Yes [id number] 70U inject 70 Univers and regular 8-17 Units ity of human 70-30 00:00: under the [place] (NOVOLIN 00 skin every Medic al 70/30 U-100 morning Branc h INSULIN) and 100 unit/mL evening. (70-30) injection ALPRAZolam 2018-0 Yes [id number] .5mg Take 1 U nivers (XANAX) 0.5 8-17 tablet by ity of mg tablet 00:00: mouth (three) Medical times Branch daily. ALPRAZolam 2018- Yes [id number] .5mg Take 1 U nivers (XANAX) 0.5 8-17 tablet by ity of mg tablet 00:00: mouth 3 (three) Medical times Branch daily. ALPRAZolam 2019-0 Yes [id number] .5mg Take 1 U nivers (XANAX) 0.5 8-17 tablet by ity of mg tablet 00:00: mouth (three) Medical times Branch daily. ALPRAZolam 2018-0 Yes [id number] .5mg Take 1 U nivers (XANAX) 0.5 8-17 tablet by ity of mg tablet 00:00: mouth (three) Medical times Branch daily. ALPRAZolam 2018-0 Yes [id number] .5mg Take 1 U nivers (XANAX) 0.5 8-17 tablet by ity of mg tablet 00:00: mouth (three) Medical times Branch daily. ALPRAZolam 2018-0 Yes [id number] .5mg Take 1 U nivers (XANAX) 0.5 8-17 tablet by ity of mg tablet 00:00: mouth (three) Medical times Branch daily. ALPRAZolam 2018-0 Yes [id number] .5mg Take 1 U nivers (XANAX) 0.5 8-17 tablet by ity of mg tablet 00:00: mouth (three) Medical times Branch daily. ALPRAZolam 2018-0 Yes [id number] .5mg Take 1 U nivers (XANAX) 0.5 8-17 tablet by ity of mg tablet 00:00: mouth (three) Medical times Branch daily. ALPRAZolam 2018-0 Yes [id number] .5mg Take 1 U nivers (XANAX) 0.5 8-17 tablet by ity of mg tablet 00:00: mouth (three) Medical times Branch daily. ALPRAZolam 2018-0 Yes [id number] .5mg Take 1 U nivers (XANAX) 0.5 8-17 tablet by ity of mg tablet 00:00: mouth (three) Medical times Branch daily. ALPRAZolam 2019-0 Yes [id number] .5mg Take 1 U nivers (XANAX) 0.5 8-17 tablet by ity of mg tablet 00:00: mouth (three) Medical times Branch daily. ALPRAZolam 2018-0 Yes [id number] .5mg Take 1 U nivers (XANAX) 0.5 8-17 tablet by ity of mg tablet 00:00: mouth 3 [place] 00 (three) Medical times Branch daily. ALPRAZolam 2020- No [id number] .5mg Take 1 Univers (XANAX) 0.5 8-17 03-18 tablet by it y of mg tablet 00:00: 00:00 mouth 3 [place] 00 :00 (three) Medical times Branch daily. carvedilol 2019- No [id number] 12.5mg Take 1 Univers 12.5 mg 8-17 12-16 tablet by ity of tablet 00:00: 00:00 mouth 2 [place] 00 :00 (two) Medical times Branch daily. insulin NPH 2019- No [id number] 70U inject 70 Univers and regular 8- 12-16 Units ity of human 70-30 00:00: 00:00 under the [place] (NOVOLIN 00 :00 skin every Medic al 70/30 U-100 morning Branc h INSULIN) and 100 unit/mL evening. (70-30) injection bumetanide 2018- No [id number] 1mg Take 1 Univers 1 mg tablet 09-25-17 tablet by it y of 00:00: 00:00 mouth [place] 00 :00 daily. Medical Branch spironolact 2018- No [id number] 50mg Take 2 Univers one 25 mg 09-25- tablets by ity of tablet 00:00: 00:00 mouth 2 [place] 00 :00 (two) Medical times Branch daily. carvedilol 2018- No [id number] 12.5mg Take 1 Univers 12.5 mg - 08-17 07 tablet by ity of tablet 00:00: 00:00 mouth 2 [place] 00 :00 (two) Medical times Branch daily. insulin NPH 2018- No [id number] 70U inject 70 Univers and regular 8- 08-17 Units ity of human 70-30 00:00: 00:00 under the [place] (NOVOLIN 00 :00 skin every Medic al 70/30 U-100 morning Branc h INSULIN) and 100 unit/mL evening. (70-30) injection clindamycin 2019- No [id number] 300mg Take 1 [facility] 300 mg 8-17 08-17 capsule by ity of capsule 00:00: 00:00 mouth 4 [place] 00 :00 (four) Medical times [place] daily for 7 days. levoFLOXaci 2019- No [id number] 750mg Take 1 Univers n 750 mg 09-25 tablet by ity o f tablet 00:00: 00:00 mouth [place] 00 :00 every 24 Medical (twenty-fo [place] ur) hours for 7 days. magnesium 2019- No 2g 2 g, IV Univ ers sulfate in 09-24 Piggyback, it y of water 2 21:00: 00:35 ONCE, 1 [place] gram/50 mL 00 :00 dose, Thu Medi amarilis (4 %) 09/24/18 at [place] infusion 2 1600, g Routine ALPRAZolam 2018- Yes .5mg 0.5 mg, Univ ers (XANAX) 09-24 Oral, TID, ity of tablet 0.5 19:00: First dose [place] mg 00 on Thu Medical 09/24/18 at Branch 1400, Until Discontinu ed, Routine KCL 20 2019- No 40meq 40 mEq, Univer s mEq/15 mL 09-24 Oral, ity of solution 40 14:45: 16:19 ONCE, 1 [place] mEq 00 :00 dose, Thu [facility] 09/24/18 at Branch 0945, Routine calcitriol Yes .5ug 0.5 mcg, Uni vers (ROCALTROL) 09-24 Oral, ity of capsule 0.5 02:00: DAILY, [place] mcg 00 First dose Medical on [facility] Branch 09/23/18 at 2100, Until Discontinu ed, Routine spironolact 2018- Yes 50mg 50 mg, Univ ers one 09-24 Oral, BID, ity of (ALDACTONE) 02:00: First dose [place] tablet 50 00 on [facility] Medical mg 09/23/18 at Branch 2100, Until Discontinu ed, Routine magnesium 2018- Yes 400mg 400 mg, Univ ers oxide - Oral, BID, ity of (MAG-OX 01:00: First dose [place] 400) tablet 00 on [facility] 400 mg 09/23/18 at Branch 2000, Until Discontinu ed, Routine LORazepam 2019- No .5mg 0.5 mg, Univ ers (ATIVAN) 09-24 Oral, ity of tablet 0.5 00:42: 18:58 BIDPRN, [place]j as mg 05 :45 Starting Medical [facility] Branch 09/23/18 at 1942, Until Thu09/24/18 at 1358, Routine, Anxiety, Hold for SBP<110, DBP<60, RR<12, and/or drowsiness /sedation KCL 20 2019- No 40meq 40 mEq, Univer s mEq/15 mL 09-23 Oral, ity of solution 40 22:15: 23:45 ONCE, 1 [place] mEq 00 :00 dose, [facility] 09/23/18 at Branch 1715, Routine levoFLOXaci Yes 750mg 750 mg, IV Univers n in D5W 09-23 Piggyback, ity o f (LEVAQUIN) 20:15: Q24H ABX, [place] 750 mg/150 00 First dose Med ical mL on [facility] Piggyback 09/23/18 at 750 mg 1515, Until Discontinu ed, 150 mL
R dariana for Anti-Infec tive: Empiric Therapy for Suspected Infection< br>Empiric Therapy Site: Urine
D uration of therapy: 7 days metOLazone Yes 5mg 5 mg, Univer s (ZAROXOLYN) 09-23 Oral, Q ity o f tablet 5 mg 14:00: OTHERDAY, [place] 00 First dose Medical on [facility] 09/23/18 at 0900, Until Discontinu ed, Routine furosemide 2018- No 40mg 40 mg, Univ ers (LASIX) 09-23 Slow IV ity of injection 03:00: 19:15 Push, Q8H, [place] 40 mg 00 :00 6 doses, Medical First dose Branch on Thu09/22/18 at 2200, Last dose on Thu09/24/18 at 1400, Routine spironolact 2019- No 25mg 25 mg, Uni vers one 09-23 Oral, BID, ity of (ALDACTONE) 01:00: 01:56 First dose [place] tablet 25 00 :02 on Thu Medical mg 09/22/18 at Branch 2000, Until Discontinu ed, Routine sodium 2019-0 Yes 1{spray 1 [place], [facility] ers chloride 09-22 } Nasal, ity of (OCEAN MIST 19:14: BIDPRN, Rj as NASAL) 0.65 29 Starting Medi amarliis % nasal [facility] spray 1 09/22/18 at [place] 1414, Until Discontinu ed, Routine, Dry nose insulin NPH 2019-0 Yes 70U 70 Units, U nivers and regular 09-22 Subcutaneo it y of human 70-30 14:00: , [place] (HUMULIN 00 QAM+PM, Medical 70-30 U-100 First dose Br anch INSULIN) on Thu 100 unit/mL 09/22/18 at (70-30) 0900, injection Until 70 Units Discontinu ed Sliding 2019-0 Yes Subcutaneo Univ ers Scale 09-22 , , ity of Insulin - 12:30: First dose [place] Aspart 00 on Thu (NOVOLOG) + 09/22/18 at Br [facility] Fsbg 0730, Testing Until Discontinu ed, Routine simvastatin 2019-0 Yes 40mg 40 mg, Univ ers (ZOCOR) 09-22 Oral, QHS, ity of tablet 40 02:00: First dose [place] mg 00 on [facility] 09/21/18 at [place] 2099, Until Discontinu ed, Routine losartan 2019-0 2019- No 25mg 25 mg, Univer s (COZAAR) 09-22 08-16 Oral, QHS, ity of tablet 25 02:00: 01:58 First dose [place] mg 00 :43 on [facility] 09/21/18 at [place] 2099, Until Discontinu ed, Routine ipratropium 2019-0 Yes 3mL 3 mL, Unive rs -albuterol 09-22 Inhalation ity of (DUONEB) 01:00: , QID, [place] 0.5 mg-3 00 First dose Medic al mg(2.5 mg on [facility] )/3 mL 09/21/18 at nebulizer 1999, solution 3 Until mL Discontinu ed, Routine carvedilol 2019-0 Yes 25mg 25 mg, Unive rs (COREG) 09-22 Oral, BID, ity of tablet 25 01:00: First dose [place] mg 00 on [facility] 09/21/18 at Branch 1999, Until Discontinu ed bumetanide 2019-0 2019- No 1mg 1 mg, Unive rs (BUMEX) 8-14 08-14 Oral, BID, ity o f tablet 1 mg 01:00: 20:27 First dose [place] 00 :43 on [facility] 09/21/18 at Branch 2000, Until Discontinu ed, Routine CARVEDILOL 2019-0 Yes 25mg Take 25 mg U nivers ORAL 8-14 by mouth 2 ity of 00:31: (two) [place] [address] times Medical daily. Branch gabapentin 2019-0 Yes 400mg Take 400 Un carlos manuel 400 mg 8-14 mg by ity of capsule 00:31: mouth 2 [place] (two) [facility] daily. losartan 25 2019-0 Yes 25mg Take 25 mg Univers mg tablet 8-14 by mouth ity of 00:31: at [place] [address] bedtime. Medical Branch metFORMIN 2019-0 Yes 500mg Take 500 Uni vers 500 mg 8-14 mg by ity of tablet 00:31: mouth 2 [place] [address] (two) Medical times [place] daily with meals. insulin NPH 2019-0 Yes 80U inject 80 U nivers hum/reg 8-14 Units ity of insulin hm 00:31: under the [place] (NOVOLIN 09 skin 2 [facility] 70/30 [place] (two) Branch times daily. simvastatin 2019-0 Yes 40mg Take 40 mg Univers 40 mg 8-14 by mouth ity of tablet 00:31: at [place] [address] bedtime. Medical Branch montelukast 2019-0 Yes 10mg Take 10 mg Univers (SINGULAIR) 8-14 by mouth. ity of 10 mg 00:31: [place] tablet 09 Medical Branch ALPRAZolam 2019-0 Yes .5mg Take 0.5 Uni vers (XANAX) 0.5 8-14 mg by ity of mg tablet 00:31: mouth 3 [place] (three) Medical times [place] daily. clindamycin 2019-0 Yes 600mg 600 mg, IV Univers in d5w 8-14 Piggyback, ity of (CLEOCIN) 00:30: Q8H ABX, [place] 600 mg/50 00 First dose Medi amarilis mL 600 mg on [facility] piggyback 09/21/18 at 1930, Until Discontinu ed
Reas on for Anti-Infec tive: Empiric Therapy for Suspected Infection< br>Empiric Therapy Site: Skin / Soft tissue
Duration of therapy: 7 days
Fa culty member approving Restricted medication : MOVVA, TRUONG HYDROcodone 2019-0 Yes 1{tbl} 1 tablet, Univers -acetaminop 09-21 Oral, ity of hen (NORCO) 23:32: Q6HPRN, Rj as 10-325 mg 23 Starting Medica l tablet 1 Tue Branch tablet 09/21/18 at 1832, Until Discontinu ed, Routine, Pain (scale 7-10) acetaminoph 2019-0 Yes 650mg 650 mg, Un carlos manuel en 09-21 Oral, ity of (TYLENOL) 23:32: Q6HPRN, [place] tablet 650 16 Starting Medic al mg e Branch 09/21/18 at 1832, Until Discontinu ed, Routine, Pain (scale 1-3) ipratropium 2019-0 Yes 3mL 3 mL, Unive rs -albuterol 09-21 Inhalation ity of (DUONEB) 23:28: , QIDPRN, [place] 0.5 mg-3 56 Starting Medical mg(2.5 mg Thu Branch base)/3 mL 09/21/18 at nebulizer 1828, solution 3 Until mL Discontinu ed, Routine, Wheezing clindamycin 2019- No 900mg 900 mg, IV Univers in 5 % 09-21 Piggyback, ity of dextrose 22:15: 23:19 ONCE, 1 [place] (CLEOCIN) 00 :00 dose, e Medic al 900 mg/50 09/21/18 at Bran ch mL 1715, 50 Piggyback mL
Reas 900 mg on for Anti-Infec tive: Documented Infection< br>Documen teri Infection Site: Skin / Soft Tissue
Duration of Therapy: Other (see Comments)< br>[employer] member approving Restricted medication : SUKHJINDER HERNANDEZ FENTanyl PF 2019- 2019- No 50ug 50 mcg, Un carlos manuel (SUBLIMAZE 09-21 Slow IV ity o f (PF)) 21:45: 22:46 Push, [place] injection 00 :00 ONCE, 1 Medical 50 mcg dose, Tue Branch 09/21/18 at 1645, Routine benzonatate 2019-0 Yes [id number] 200mg Take 1 Univers 200 mg 6-13 capsule by ity of capsule 00:00: mouth 3 00 (three) Medical times Branch daily as needed for Cough. benzonatate 2018- Yes [id number] 200mg Take 1 Univers 200 mg 6-13 capsule by ity of capsule 00:00: mouth 3 00 (three) Medical times Branch daily as needed for Cough. benzonatate Yes [id number] 200mg Take 1 Univers 200 mg 6-13 capsule by ity of capsule 00:00: mouth 3 00 (three) Medical times Branch daily as needed for Cough. benzonatate Yes [id number] 200mg Take 1 Univers 200 mg 6-13 capsule by ity of capsule 00:00: mouth 3 00 (three) Medical times Branch daily as needed for Cough. benzonatate Yes [id number] 200mg Take 1 Univers 200 mg 6-13 capsule by ity of capsule 00:00: mouth 3 00 (three) Medical times Branch daily as needed for Cough. benzonatate Yes [id number] 200mg Take 1 Univers 200 mg 6-13 capsule by ity of capsule 00:00: mouth 3 00 (three) Medical times Branch daily as needed for Cough. benzonatate Yes [id number] 200mg Take 1 Univers 200 mg 6-13 capsule by ity of capsule 00:00: mouth 3 00 (three) Medical times Branch daily as needed for Cough. benzonatate 2020- No [id number] 200mg Take 1 Univers 200 mg 6-13 12-11 capsule by ity of capsule 00:00: 00:00 mouth 3 [place] 00 :00 (three) Medical times Branch daily as needed for Cough. albuterol Yes [id number] 2.5mg Inhale 3 Univers 2.5 mg /3 6-02 mL every 4 ity of mL (0.083 00:00: (four) [place] %) 00 hours as Medical nebulizer needed for Bran ch solution Wheezing or Shortness of Breath. albuterol Yes [id number] 2.5mg Inhale 3 Univers 2.5 mg /3 6-02 mL every 4 ity of mL (0.083 00:00: (four) [place] %) 00 hours as Medical nebulizer needed for Bran ch solution Wheezing or Shortness of Breath. albuterol 2019-0 Yes [id number] 2.5mg Inhale 3 Univers 2.5 mg /3 6-02 mL every 4 ity of mL (0.083 00:00: (four) [place] %) 00 hours as Medical nebulizer needed for Bran ch solution Wheezing or Shortness of Breath. albuterol 2019-0 Yes [id number] 2.5mg Inhale 3 Univers 2.5 mg /3 6-02 mL every 4 ity of mL (0.083 00:00: (four) [place] %) 00 hours as Medical nebulizer needed for Bran ch solution Wheezing or Shortness of Breath. albuterol 2018-0 Yes [id number] 2.5mg Inhale 3 Univers 2.5 mg /3 6-02 mL every 4 ity of mL (0.083 00:00: (four) [place] %) 00 hours as Medical nebulizer needed for Bran ch solution Wheezing or Shortness of Breath. albuterol 2018-0 Yes [id number] 2.5mg Inhale 3 Univers 2.5 mg /3 6-02 mL every 4 ity of mL (0.083 00:00: (four) [place] %) 00 hours as Medical nebulizer needed for Bran ch solution Wheezing or Shortness of Breath. albuterol 2018-0 Yes [id number] 2.5mg Inhale 3 Univers 2.5 mg /3 6-02 mL every 4 ity of mL (0.083 00:00: (four) [place] %) 00 hours as Medical nebulizer needed for Bran ch solution Wheezing or Shortness of Breath. albuterol 2018-0 2020- No [id number] 2.5mg Inhale 3 Univers 2.5 mg /3 6-02 12-11 mL every 4 ity of mL (0.083 00:00: 00:00 (four) [place] %) 00 :00 hours as Medical nebulizer needed for Bran ch solution Wheezing or Shortness of Breath. CARVEDILOL 2019-0 Yes 25mg Take 25 mg U nivers ORAL 4-25 by mouth 2 ity of 18:06: (two) [place] 23 times Medical daily. Branch gabapentin 2019-0 Yes 400mg Take 400 Un carlos manuel 400 mg 4-25 mg by ity of capsule 18:06: mouth 2 [place] 23 (two) Medical times Branch daily. losartan 25 2019-0 Yes 25mg Take 25 mg Univers mg tablet 4-25 by mouth ity of 18:06: at [place] [address] bedtime. Medical Branch metFORMIN 2019-0 Yes 500mg Take 500 Uni vers 500 mg 4-25 mg by ity of tablet 18:06: mouth 2 [place] (two) Medical times Branch daily with meals. insulin NPH 2019-0 Yes 80U inject 80 U nivers hum/reg 4-25 Units ity of insulin hm 18:06: under the [place] (NOVOLIN 23 skin 2 [place] 70/30 [place] (two) Branch times daily. simvastatin 2019-0 Yes 40mg Take 40 mg Univers 40 mg 4-25 by mouth ity of tablet 18:06: at [place] [address] bedtime. Medical Branch montelukast 2018-0 Yes 10mg Take 10 mg Univers (SINGULAIR) 4-25 by mouth. ity of 10 mg 18:06: [place] [address] Medical Branch ALPRAZolam 2019-0 Yes .5mg Take 0.5 Uni vers (XANAX) 0.5 4-25 mg by ity of mg tablet 18:06: mouth 3 [place] [address] (three) Medical times Branch daily. magnesium 2019- Yes [id number] 400mg Take 400 Univers oxide 420 4-25 mg by ity of mg Tab 00:00: mouth 2 [place] (two) Medical times Branch daily. bumetanide 2019-0 Yes [id number] 1mg Take 1 Univers 1 mg tablet 4-25 tablet by ity of 00:00: mouth 2 [place] (two) Medical times Branch daily. magnesium 2019-0 Yes [id number] 400mg Take 400 Univers oxide 420 4-25 mg by ity of mg Tab 00:00: mouth 2 [place] (two) Medical times Branch daily. potassium 2019-0 Yes [id number] 40meq Take 15 mL Univers chloride 40 4-25 by mouth ity of mEq/15 mL 00:00: daily. [place] [address] Medical Branch spironolact 2019-0 Yes [id number] 25mg Take 1 Univers one 25 mg 4-25 tablet by ity o f tablet 00:00: mouth 2 [place] (two) Medical times Branch daily. zolpidem 5 2019-0 Yes [id number] 5mg Take 1 Univers mg tablet 4-25 tablet by ity o f 00:00: mouth at [place] 00 bedtime as Medical needed for Branch Insomnia. doxycycline 2019-0 Yes [id number] 100mg Take 1 Univers 100 mg 4-25 capsule by ity of capsule 00:00: mouth [place] 00 every 12 Medical (twelve) Branch hours. levoFLOXaci 2019-0 Yes [id number] 500mg Take 1 Univers n 500 mg 4-25 tablet by ity of tablet 00:00: mouth [place] 00 every 24 Medical (twenty-fo Branch ur) hours. bumetanide 2019-0 Yes [id number] 1mg Take 1 Univers 1 mg tablet 4-25 tablet by ity of 00:00: mouth 2 (two) Medical times Branch daily. magnesium 2019-0 Yes [id number] 400mg Take 400 Univers oxide 420 4-25 mg by ity of mg Tab 00:00: mouth 2 [place] (two) Medical times Branch daily. potassium 2019-0 Yes [id number] 40meq Take 15 mL Univers chloride 40 4-25 by mouth ity of mEq/15 mL 00:00: daily. [facility] Medical Branch spironolact 2019-0 Yes [id number] 25mg Take 1 Univers one 25 mg 4-25 tablet by ity o f tablet 00:00: mouth 2 [place] (two) Medical times Branch daily. zolpidem 5 2019-0 Yes [id number] 5mg Take 1 Univers mg tablet 4-25 tablet by ity o f 00:00: mouth at [place] 00 bedtime as Medical needed for Branch Insomnia. doxycycline 2019-0 Yes [id number] 100mg Take 1 Univers 100 mg 4-25 capsule by ity of capsule 00:00: mouth [place] 00 every 12 Medical (twelve) Branch hours. levoFLOXaci 2019-0 Yes [id number] 500mg Take 1 Univers n 500 mg 4-25 tablet by ity of tablet 00:00: mouth [place] 00 every 24 Medical (twenty-fo Branch ur) hours. magnesium 2019-0 Yes [id number] 400mg Take 400 Univers oxide 420 4-25 mg by ity of mg Tab 00:00: mouth 2 [place] (two) Medical times Branch daily. potassium 2019-0 Yes [id number] 40meq Take 15 mL Univers chloride 40 4-25 by mouth ity of mEq/15 mL 00:00: daily. [place] solution Medical Branch zolpidem 5 2019-0 Yes [id number] 5mg Take 1 Univers mg tablet 4-25 tablet by ity o f 00:00: mouth at [place] 00 bedtime as Medical needed for Branch Insomnia. magnesium 2019-0 Yes [id number] 400mg Take 400 Univers oxide 420 4-25 mg by ity of mg Tab 00:00: mouth 2 [place] (two) Medical times Branch daily. potassium 2019-0 Yes [id number] 40meq Take 15 mL Univers chloride 40 4-25 by mouth ity of mEq/15 mL 00:00: daily. [facility] Medical Branch zolpidem 5 2019-0 Yes [id number] 5mg Take 1 Univers mg tablet 4-25 tablet by ity o f 00:00: mouth at [place] [address] bedtime as Medical needed for Branch Insomnia. magnesium 2019-0 Yes [id number] 400mg Take 400 Univers oxide 420 4-25 mg by ity of mg Tab 00:00: mouth 2 [place] (two) Medical times Branch daily. potassium 2019-0 Yes [id number] 40meq Take 15 mL Univers chloride 40 4-25 by mouth ity of mEq/15 mL 00:00: daily. [facility] Medical Branch zolpidem 5 2019-0 Yes [id number] 5mg Take 1 Univers mg tablet 4-25 tablet by ity o f 00:00: mouth at [place] [address] bedtime as Medical needed for Branch Insomnia. magnesium 2019-0 Yes [id number] 400mg Take 400 Univers oxide 420 4-25 mg by ity of mg Tab 00:00: mouth 2 [place] (two) Medical times Branch daily. zolpidem 5 2019-0 Yes [id number] 5mg Take 1 Univers mg tablet 4-25 tablet by ity o f 00:00: mouth at [place] [address] bedtime as Medical needed for Branch Insomnia. magnesium 2019-0 Yes [id number] 400mg Take 400 Univers oxide 420 4-25 mg by ity of mg Tab 00:00: mouth 2 [place] (two) Medical times Branch daily. zolpidem 5 2019-0 Yes [id number] 5mg Take 1 Univers mg tablet 4-25 tablet by ity o f 00:00: mouth at [place] [address] bedtime as Medical needed for Branch Insomnia. magnesium 2019-0 Yes [id number] 400mg Take 400 Univers oxide 420 4-25 mg by ity of mg Tab 00:00: mouth (two) Medical times Branch daily. zolpidem 5 2019-0 Yes [id number] 5mg Take 1 Univers mg tablet 4-25 tablet by ity o f 00:00: mouth at [place] bedtime as Medical needed for Branch Insomnia. magnesium 2019-0 Yes [id number] 400mg Take 400 Univers oxide 420 4-25 mg by ity of mg Tab 00:00: mouth (two) Medical times Branch daily. zolpidem 5 2019-0 Yes [id number] 5mg Take 1 Univers mg tablet 4-25 tablet by ity o f 00:00: mouth at [place] bedtime as Medical needed for Branch Insomnia. magnesium 2019-0 Yes [id number] 400mg Take 400 Univers oxide 420 4-25 mg by ity of mg Tab 00:00: mouth (two) Medical times Branch daily. zolpidem 5 2019-0 Yes [id number] 5mg Take 1 Univers mg tablet 4-25 tablet by ity o f 00:00: mouth at [place] bedtime as Medical needed for Branch Insomnia. magnesium 2019-0 Yes [id number] 400mg Take 400 Univers oxide 420 4-25 mg by ity of mg Tab 00:00: mouth (two) Medical times Branch daily. zolpidem 5 2019-0 Yes [id number] 5mg Take 1 Univers mg tablet 4-25 tablet by ity o f 00:00: mouth at [place] bedtime as Medical needed for Branch Insomnia. magnesium 2019-0 Yes [id number] 400mg Take 400 Univers oxide 420 4-25 mg by ity of mg Tab 00:00: mouth (two) Medical times Branch daily. magnesium 2019-0 Yes [id number] 400mg Take 400 Univers oxide 420 4-25 mg by ity of mg Tab 00:00: mouth (two) Medical times Branch daily. magnesium 2019-0 Yes [id number] 400mg Take 400 Univers oxide 420 4-25 mg by ity of mg Tab 00:00: mouth (two) Medical times Branch daily. magnesium 2019-0 Yes [id number] 400mg Take 400 Univers oxide 420 4-25 mg by ity of mg Tab 00:00: mouth (two) Medical times Branch daily. magnesium 2019-0 Yes [id number] 400mg Take 400 Univers oxide 420 4-25 mg by ity of mg Tab 00:00: mouth 2 [place] 00 (two) Medical times Branch daily. magnesium 2019- Yes [id number] 400mg Take 400 Univers oxide 420 4-25 mg by ity of mg Tab 00:00: mouth 2 [place] 00 (two) Medical times Branch daily. magnesium Yes [id number] 400mg Take 400 Univers oxide 420 4-25 mg by ity of mg Tab 00:00: mouth 2 [place] 00 (two) Medical times Branch daily. magnesium Yes [id number] 400mg Take 400 Univers oxide 420 4-25 mg by ity of mg Tab 00:00: mouth 2 [place] 00 (two) Medical times Branch daily. magnesium 2020- No [id number] 400mg Take 400 Univers oxide 420 4-25 03-18 mg by ity of mg Tab 00:00: 00:00 mouth 2 [place] 00 :00 (two) Medical times Branch daily. zolpidem 5 2020- No [id number] 5mg Take 1 Univers mg tablet 4-05 03-08 tablet by ity of 00:00: 00:00 mouth at [place] 00 :00 bedtime as Medical needed for Branch Insomnia. zolpidem 5 2020- No [id number] 5mg Take 1 Univers mg tablet 4-05 03-08 tablet by ity of 00:00: 00:00 mouth at [place] 00 :00 bedtime as Medical needed for Branch Insomnia. zolpidem 5 2020- No [id number] 5mg Take 1 Univers mg tablet 4-05 03-08 tablet by ity of 00:00: 00:00 mouth at [place] 00 :00 bedtime as Medical needed for Branch Insomnia. bumetanide 2018- No [id number] 1mg Take 1 Univers 1 mg tablet 4-25 -17 tablet by it y of 00:00: 00:00 mouth 2 [place] 00 :00 (two) Medical times Branch daily. spironolact 2018- No [id number] 25mg Take 1 Univers one 25 mg 4-25 -17 tablet by ity of tablet 00:00: 00:00 mouth 2 [place] 00 :00 (two) Medical times Branch daily. doxycycline 2018- No [id number] 100mg Take 1 Univers 100 mg -09-25 capsule by ity of capsule 00:00: 00:00 mouth [place] 00 :00 every 12 Medical (twelve) Branch hours. levoFLOXaci 2019- No [id number] 500mg Take 1 Univers n 500 mg 4-03 10- tablet by ity o f tablet 00:00: 00:00 mouth [place] 00 :00 every 24 Medical (twenty-fo Branch ur) hours. Immunizations Ordered Filled Immunization Date Status Comments Sourc e Immunization Name Name Td 2020-10-21 Completed University of 00:00:00 [facility] Branch Td 2020-10-21 Completed University of 00:00:00 [facility] Branch Td 2020-10-21 Completed University of 00:00:00 [facility] [place] [facility] Td 2020-10-21 Completed University of 00:00:00 [facility] [place] [facility] Vital Signs Vital Name Observation Time Observation Value Comments Source Systolic blood 2020-10-21 12:48:00 157 mm[Hg] Univer sity of [facility] Diastolic blood 2020-10-21 12:48:00 85 mm[Hg] Unive rsity [facility] Heart rate 2020-10-21 12:48:00 73 /min [facility] Body temperature 2020-10-21 12:48:00 36.67 [facility] Respiratory rate 2020-10-21 12:48:00 20 /min [facility] Body weight 2020-10-21 12:48:00 99.791 kg [facility] BMI 2020-10-21 12:48:00 34.46 kg/m2 [facility] Oxygen saturation in 2020-10-21 12:48:00 95 /min [facility] Arterial blood by [facility] Pulse oximetry Branch Systolic blood 2020-05-11 02:00:00 124 mm[Hg] Univer sity of [facility] Diastolic blood 2020-05-11 02:00:00 47 [facility]Hg[facility] 2020-[facility]11 02:00:00 81 /min [facility] Respiratory rate 2020-05-11 02:00:00 20 /min Univ ers[facility] [place] [facility] Oxygen saturation in 2020-05-11 02:00:00 98 /min University of Arterial blood by [facility] amarilis Pulse oximetry Branch Body temperature 2020-05-10 22:40:00 36.78 [place] Univ ers[facility] [place] [facility] Body weight 2020-05-10 22:40:00 113.399 kg [facility] [place] [facility] BMI 2020-05-10 22:40:00 39.16 kg/m2 [facility] [place] [facility] Systolic blood 2020-04-27 00:25:00 121 mm[Hg] Univer sity of pressure [place] [facility] Diastolic blood 2020-04-27 00:25:00 59 mm[Hg] Unive rsity of pressure [place] [facility] Heart rate 2020-04-27 00:25:00 67 /min [facility] [place] [facility] Body temperature 2020-04-27 00:25:00 37.33 [place] Univ ers[facility] [place] [facility] Respiratory rate 2020-04-27 00:25:00 16 /min Univ ersity [facility] [place] [facility] Oxygen saturation in 2020-04-27 00:25:00 92 /min University of Arterial blood by [facility] Pulse oximetry Branch Body height 2020-04-21 03:22:00 170.2 cm [facility] [place] [facility] Body weight 2020-04-20 21:16:00 110.678 kg [facility] [place] [facility] BMI 2020-04-20 21:16:00 38.22 kg/m2 [facility] [place] [facility] Systolic blood 2020-03-16 21:00:00 139 mm[Hg] Univer sity of pressure [place] [facility] Diastolic blood 2020-03-16 21:00:00 78 mm[Hg] Unive rsity of pressure [place] [facility] Heart rate 2020-03-16 21:00:00 76 /min [facility] [place] [facility] Respiratory rate 2020-03-16 20:58:00 19 /min Univ ers[facility] [place] [facility] Body height 2020-03-16 20:58:00 160 cm [facility] [place] [facility] Body weight 2020-03-16 20:58:00 110.95 kg [facility] [place] [facility] BMI 2020-03-16 20:58:00 43.33 kg/m2 [facility] [place] [facility] Oxygen saturation in 2020-03-16 20:58:00 93 /min University of Arterial blood by [place] [facility] amarilis Pulse oximetry Branch Systolic blood 2020-03-06 01:00:00 134 mm[Hg] Univer sity of pressure [place] [facility] Diastolic blood 2020-03-06 01:00:00 78 mm[Hg] Unive rsity of pressure [place] [facility] Heart rate 2020-03-06 01:00:00 68 /min [facility] [place] [facility] Respiratory rate 2020-03-06 01:00:00 20 /min Univ ers[facility] [place] [facility] Oxygen saturation in 2020-03-06 01:00:00 94 /min University of Arterial blood by [facility] Pulse oximetry Branch Body temperature 2020-03-05 20:21:00 36.72 [place] [facility] [place] [facility] Body weight 2020-03-05 20:21:00 108.863 kg [facility] [place] [facility] BMI 2020-03-05 20:21:00 43.90 kg/m2 [facility] [place] [facility] Systolic blood 2020-02-17 21:28:00 144 mm[Hg] Univer sity of pressure [place] [facility] Diastolic blood 2020-02-17 21:28:00 79 mm[Hg] Unive rsity of pressure [place] [facility] Heart rate 2020-02-17 21:28:00 93 /min [facility] [place] [facility] Respiratory rate 2020-02-17 21:19:00 17 /min Univ ers[facility] [place] [facility] Body height 2020-02-17 21:19:00 157.5 cm [facility] [place] [facility] Body weight 2020-02-17 21:19:00 108.773 kg [facility] [place] [facility] BMI 2020-02-17 21:19:00 43.86 kg/m2 [facility] [place] [facility] Oxygen saturation in 2020-02-17 21:19:00 95 /min University of Arterial blood by [facility] Pulse oximetry Branch Systolic blood 2020-01-25 16:33:00 117 mm[Hg] Univer sity of [facility] [place] [facility] Diastolic blood 2020-01-25 16:33:00 50 mm[Hg] Unive rsity of pressure [place] [facility] Heart rate 2020-01-25 16:33:00 73 /min [facility] [place] [facility] Body temperature 2020-01-25 16:33:00 36.22 [place] [facility] [place] [facility] Respiratory rate 2020-01-25 16:33:00 16 /min Univ [facility] [place] [facility] Oxygen saturation in 2020-01-25 16:33:00 90 /min University of Arterial blood by [place] BULX amarilis Pulse oximetry Branch Body height 2020-01-20 04:52:00 160 cm [facility] [place] [facility] Body weight 2020-01-20 04:52:00 113.853 kg [facility] [place] [facility] BMI 2020-01-20 04:52:00 44.46 kg/m2 [facility] [place] [facility] Systolic blood 2020-01-19 23:31:00 163 mm[Hg] Univer sity of [facility] [place] [facility] Branch Diastolic blood 2020-01-19 23:31:00 79 mm[Hg] [facility] Heart rate 2020-01-19 23:31:00 75 /min [facility] Body temperature 2020-01-19 23:31:00 36.28 Sydnee [facility] Respiratory rate 2020-01-19 23:31:00 20 /min [facility] Body height 2020-01-19 23:31:00 160 cm [facility] Body weight 2020-01-19 23:31:00 117.482 kg [facility] BMI 2020-01-19 23:31:00 45.88 kg/m2 [facility] Oxygen saturation in 2020-01-19 23:31:00 96 /min [facility] Arterial blood by [place] [facility] amarilis Pulse oximetry Branch Systolic blood 2018-10-14 05:00:00 154 mm[Hg] [facility] Diastolic blood 2018-10-14 05:00:00 81 mm[Hg] [facility] Heart rate 2018-10-14 05:00:00 60 /min [facility] Respiratory rate 2018-10-14 05:00:00 16 /min [facility] Oxygen saturation in 2018-10-14 05:00:00 95 /min [facility] Ar[facility]ial blood by [place] [facility]ar[facility] Pulse oximetry Branch Body temperature 2018-10-14 02:41:00 36.67 Sydnee [facility] Body height 2018-10-14 02:41:00 160 cm [facility] Body weight 2018-10-14 02:41:00 112.492 kg [facility] BMI 2018-10-14 02:41:00 43.93 kg/m2 [facility] Systolic blood 2018-10-14 05:00:00 154 mm[Hg] [facility] Diastolic blood 2018-10-14 05:00:00 81 mm[Hg] [facility] Heart rate 2018-10-14 05:00:00 60 /min [facility] Respiratory rate 2018-10-14 05:00:00 16 /min [facility] Oxygen saturation in 2018-10-14 05:00:00 95 /min [facility] Arterial blood by [facility] Pulse oximetry Branch Body temperature 2018-10-14 02:41:00 36.67 Sydnee [facility] Body height 2018-10-14 02:41:00 160 cm [facility] Body weight 2018-10-14 02:41:00 112.492 kg [facility] BMI 2018-10-14 02:41:00 43.93 kg/m2 [facility] Systolic blood 2018-09-25 16:43:00 128 mm[Hg] [facility] Diastolic blood 2018-09-25 16:43:00 68 mm[Hg] [facility] Heart rate 2018-09-25 16:43:00 61 /min [facility] Body temperature 2018-09-25 16:43:00 36.61 Sydnee [facility] Respiratory rate 2018-09-25 16:43:00 18 /min [facility] Oxygen saturation in 2018-09-25 16:43:00 93 /min [facility] by [place] [facility] Pulse oximetry Branch Body height 2018-09-22 00:56:00 160 cm [facility] Body weight 2018-09-22 00:56:00 112.492 kg [facility] BMI 2018-09-22 00:56:00 43.93 kg/m2 [facility] Systolic blood 2018-09-25 16:43:00 128 mm[Hg] Univer sity of pressure [facility] Diastolic blood 2018-09-25 16:43:00 68 mm[Hg] [facility] Heart rate 2018-09-25 16:43:00 61 /min [facility] Body temperature 2018-09-25 16:43:00 36.61 Sydnee [facility] Respiratory rate 2018-09-25 16:43:00 18 /min [facility] Oxygen saturation in 2018-09-25 16:43:00 93 /min [facility] blood by [facility] Pulse oximetry [place] Body height 2018-09-22 00:56:00 160 cm [facility] Body weight 2018-09-22 00:56:00 112.492 kg [facility] BMI 2018-09-22 00:56:00 43.93 kg/m2 [facility] Procedures Procedure Date / Time Performing Clinician Source Performed PHYSICIAN ORDERS 2020-11-09 05:01:00 Doctor Unakenneth, [facility] [place] CT TRAUMA HEAD WO 2020-10-21 13:26:59 Abril Alejandro [facility] CONTRAST [facility] CT TRAUMA CERVICAL SPINE 2020-10-21 13:26:59 Abril Alejandro [facility] WO [facility] CONSENT/REFUSAL FOR 2020-10-21 12:40:19 Doctor Unakenneth [facility] DIAGNOSIS AND TREATMENT [facility] [place] HOME HEALTH - OTHER 2020-06-29 05:01:00 Doctor Marcos [facility] Name [facility] [place] CT ABDOMEN PELVIS WO 2020-05-11 01:25:16 Frankie Stern [facility] CONTRAST [facility] URINALYSIS 2020-05-10 23:31:00 Frankie Stern [place] o [facility] COVID-19 (ID NOW RAPID 2020-05-10 23:23:00 Frankie Stern [facility] TESTING) [facility] [place] COMP. METABOLIC PANEL 2020-05-10 23:18:00 Frankie Stern [facility] ([id number]) Medical Branch CBC WITH DIFF 2020-05-10 23:18:00 Frankie Stern [facility] CONSENT/REFUSAL FOR 2020-05-10 22:20:42 Doctor Unassigned, [facility] DIAGNOSIS AND TREATMENT [facility] POCT GLUCOSE (AUTOMATED) 2020-04-26 21:04:00 Owen Patton, Uni versity of [facility] POCT GLUCOSE (AUTOMATED) 2020-04-26 18:39:00 Owen Patton, Uni versity of [facility] MAGNESIUM 2020-04-26 17:01:00 [facility]OLIC PANEL 2020-04-26 17:01:00 Yann Houston [facility] (NA, K, CL, CO2, GLUCOSE, Medica l Branch BUN, CREATININE, CA) D-DIMER 2020-04-26 17:01:00 [facility] CBC WITH DIFF 2020-04-26 17:00:00 [facility]) 2020-04-26 16:16:00 Owen Abdi, Uni vers[facility] of [facility] POCT GLUCOSE (AUTOMATED) 2020-04-26 13:17:00 Owen Abdi, [facility] POCT GLUCOSE (AUTOMATED) 2020-04-26 00:36:00 Owen Clintona, Uni [facility] POCT GLUCOSE (AUTOMATED) 2020-04-25 21:31:00 Owen Clintona, Uni [facility] POCT GLUCOSE (AUTOMATED) 2020-04-25 16:50:00 Owen Abdi, [facility] POCT GLUCOSE (AUTOMATED) 2020-04-25 13:29:00 Owen Clintona, Uni versity of [facility] MAGNESIUM 2020-04-25 10:50:00 [facility] BASIC METABOLIC PANEL 2020-04-25 10:50:00 Houston Lerner [facility] (NA, K, CL, CO2, GLUCOSE, Medica l Branch BUN, CREATININE, CA) CBC WITH DIFF 2020-04-25 10:50:00 [facility] POCT GLUCOSE (AUTOMATED) 2020-04-25 00:26:00 Owen Patton, [facility] POCT GLUCOSE (AUTOMATED) 2020-04-24 22:16:00 Owen Patton, [facility] POCT GLUCOSE (AUTOMATED) 2020-04-24 17:33:00 Owen lCintona, [facility] POCT GLUCOSE (AUTOMATED) 2020-04-24 14:28:00 Owen Patton, Uni [facility] MAGNESIUM 2020-04-24 10:13:00 [facility] HE[facility]EL 2020-04-24 10:13:00 Felipe [facility] ([id number]) (ALB,T.PRO,BILI Medical Branch T,BU/BC,ALT,AST,ALK PHOS) BASIC METABOLIC PANEL 2020-04-24 10:13:00 Yann [facility] (NA, K, CL, CO2, GLUCOSE, Medica l Branch BUN, CREATININE, CA) CBC WITH DIFF 2020-04-24 10:13:00 Felipe [facility] D-DIMER 2020-04-24 10:13:00 [facility] POCT GLUCOSE (AUTOMATED) 2020-04-24 00:18:00 Owen Patton, [facility] POCT GLUCOSE (AUTOMATED) 2020-04-23 21:41:00 Owen Patton [facility] BASIC METABOLIC PANEL 2020-04-23 19:10:00 Yann [facility] (NA, K, CL, CO2, GLUCOSE, Medica l Branch BUN, CREATININE, CA) PROCALCITONIN 2020-04-23 19:10:[address] [facility] POCT GLUCOSE (AUTOMATED) 2020-04-23 16:45:00 Owen Patton, [facility] POCT GLUCOSE (AUTOMATED) 2020-04-23 13:29:00 Owen Patton [facility] XR CHEST 1 VW 2020-04-23 13:15:00 Houston Lerner [facility] CBC WITH DIFF 2020-04-23 10:33:00 Felipe [facility] MAGNESIUM 2020-04-23 02:18:00 [facility] BASIC METABOLIC PANEL 2020-04-23 02:18:00 Adis Garcia [facility] (NA, K, CL, CO2, GLUCOSE, Medica l Branch BUN, CREATININE, CA) POCT GLUCOSE (AUTOMATED) 2020-04-23 00:40:00 Owen Patton, [facility] BASIC METABOLIC PANEL 2020-04-22 23:40:00 Dennis Mcarthur [facility] (NA, K, CL, CO2, GLUCOSE, Medica l Branch BUN, CREATININE, CA) POCT GLUCOSE (AUTOMATED) 2020-04-22 21:00:00 Owen Patton, [facility] POCT GLUCOSE (AUTOMATED) 2020-04-22 17:42:00 Owen Patton, [facility] POCT GLUCOSE (AUTOMATED) 2020-04-22 12:59:00 Owen Patton, [facility] POCT GLUCOSE (AUTOMATED) 2020-04-22 09:48:00 Owen Patton, [facility] POCT GLUCOSE (AUTOMATED) 2020-04-22 08:35:00 Owen Patton, [facility] PHOSPHORUS 2020-04-22 08:27:00 [facility] HEPATIC FUNCTION PANEL 2020-04-22 08:27:00 Ed [facility] ([id number]) (ALB,T.PRO,BILI Medical Branch T,BU/BC,ALT,AST,ALK PHOS) BASIC METABOLIC PANEL 2020-04-22 08:27:00 [facility] ([facility], K, CL, CO2, GLUCOSE, Medica l Branch BUN, CREATININE, CA) CBC WITH DIFF 2020-04-22 08:27:00 Hank [facility] D-DIMER 2020-04-22 08:27:00 Felipe [facility] POCT GLUCOSE (AUTOMATED) 2020-04-22 06:10:00 Owen Patton [facility] POCT GLUCOSE (AUTOMATED) 2020-04-22 02:53:00 Owen Patton [facility] POCT GLUCOSE (AUTOMATED) 2020-04-21 23:02:00 Owen Patton [facility] BASIC METABOLIC PANEL 2020-04-21 20:15:00 [facility] (NA, K, CL, CO2, GLUCOSE, Medica l Branch BUN, CREATININE, CA) DUPLEX VENOUS LEGS 2020-04-21 19:55:00 Felipe [facility] BILATERAL - BY VASCULAR Medical Branch LAB POCT GLUCOSE (AUTOMATED) 2020-04-21 17:38:00 Owen Patton [facility] POCT GLUCOSE (AUTOMATED) 2020-04-21 13:44:00 Owen Patton [facility] POCT GLUCOSE (AUTOMATED) 2020-04-21 13:41:00 Owen Patton [facility] MAGNESIUM 2020-04-21 10:20:00 Felipe [facility] TROPONIN I 2020-04-21 10:20:00 Felipe [facility] BASIC METABOLIC PANEL 2020-04-21 10:20:00 Hank [facility] (NA, K, CL, CO2, GLUCOSE, Medica l Branch BUN, CREATININE, CA) CBC WITH DIFF 2020-04-21 10:20:00 Hank [facility] PNEUMOCOCCAL ANTIGEN 2020-04-21 06:54:00 Hank [facility] LACTATE DEHYDROGENASE 2020-04-21 04:39:00 Hank [facility] C-REACTIVE PROTEIN 2020-04-21 04:39:00 Hank [facility] TROPONIN I 2020-04-21 04:39:00 Hank [facility] LIPID PANEL ([id number])(TOTAL 2020-04-21 04:39:00 Hank [facility] CHOLESTEROL, [facility] TRIGLYCERIDES, HDL) D-DIMER 2020-04-21 04:39:00 Hank [facility] PROCALCITONIN 2020-04-21 04:39:00 Hank [facility] URINALYSIS 2020-04-20 22:33:00 [facility] & RHYTHM 2020-04-20 21:58:52 Sis Cowan [facility] [place] XR CHEST 1 VW 2020-04-20 21:50:38 [facility] SERUM 2020-04-20 21:48:00 Hank [facility] TROPONIN I 2020-04-20 21:48:00 Chapo [facility] HEPATIC FUNCTION PANEL 2020-04-20 21:48:00 Chapo [facility] ([id number]) (ALB,T.PRO,BILI [facility] T,BU/BC,ALT,AST,ALK PHOS) BASIC METABOLIC PANEL 2020-04-20 21:48:00 Chapo [facility] (NA, K, CL, CO2, GLUCOSE, Medica l Branch BUN, CREATININE, CA) CBC WITH DIFF 2020-04-20 21:48:00 Chapo [facility] GLYCOSYLATED HEMOGLOBIN 2020-04-20 21:48:00 Hank [facility] (A1C) [facility] PROTHROMBIN TIME / INR 2020-04-20 21:48:00 Chapo [facility] N-TERMINAL PRO-BNP 2020-04-20 21:48:00 Sis Cowan [facility] COVID-19 (ID NOW RAPID 2020-04-20 21:48:00 Chapo [facility] TESTING) Medical [facility] LAB ONLY COVID 2020-04-20 21:48:00 Sis Cowan [facility] INTERPRETATION [facility] EXTERNAL PROVIDER - ADC 2020-03-29 06:01:00 Doctor Unassbren, [facility] CARDIOLOGY [facility] [place] POCT GLUCOSE(AGE >30DAYS) 2020-03-06 00:26:00 Avery Suarez [facility] COVID-19 (ID NOW RAPID 2020-03-06 00:26:00 Avery Suarez [facility] TESTING) Medical Branch XR ABDOMEN ACUTE SERIES 2020-03-05 23:04:09 Erick [facility] TROPONIN I 2020-03-05 22:14:[address] [facility] COMP. METABOLIC PANEL 2020-03-05 22:14:00 Erick [facility] ([id number]) Medical Branch CBC WITH DIFF 2020-03-05 22:14:[address] [facility] URINALYSIS 2020-03-05 22:14:[address] [facility] [address] [facility] N-TERMINAL PRO-BNP 2020-03-05 22:14:00 Avery Suarez [facility] BILATERAL VENOUS DUPLEX 2020-03-05 22:11:16 Erick [facility] LOWER EXTREMITY BY Medical Bran h VASCULAR LAB NOTICE OF PRIVACY 2020-03-05 20:12:08 Doctor Unakenneth, [facility] PRACTICES [facility] [place] CONSENT/REFUSAL FOR 2020-03-05 20:11:19 Doctor Marcos, [facility] DIAGNOSIS AND TREATMENT [facility] [place] CONSENT/REFUSAL FOR 2020-02-17 20:41:18 Doctor Marcos, [facility] ([facility]OMATED) 2020-01-25 17:51:[address] [facility] POCT GLUCOSE (AUTOMATED) 2020-01-25 14:05:[address] [facility] MAGNESIUM 2020-01-25 09:32:00 Humberto dara [facility] COMP. METABOLIC PANEL 2020-01-25 09:32:00 Cuauhtemoc Paul [facility] ([id number]) Medical Branch CBC WITH DIFF 2020-01-25 09:32:00 Humberto dara [facility] N-TERMINAL PRO-BNP 2020-01-25 09:32:00 Humberto dara [facility] POCT GLUCOSE (AUTOMATED) 2020-01-25 01:27:[address] [facility] POCT GLUCOSE (AUTOMATED) 2020-01-24 22:45:[address] [facility] POCT GLUCOSE (AUTOMATED) 2020-01-24 17:19:[address] [facility] VANCOMYCIN TROUGH 2020-01-24 14:19:00 Frank Acuna [facility] POCT GLUCOSE (AUTOMATED) 2020-01-24 13:41:[address] [facility] URIC ACID 2020-01-24 09:38:00 Humberto [facility] MAGNESIUM 2020-01-24 09:38:00 Humberto [facility] COMP. METABOLIC PANEL 2020-01-24 09:38:00 Cuauhtemoc Paul [facility] ([id number]) [facility] ACUTE CARE VENOUS BLOOD 2020-01-24 09:38:00 Humberto dara [facility] CBC WITH DIFF 2020-01-24 09:38:00 Humberto [facility] N-TERMINAL PRO-BNP 2020-01-24 09:38:00 Humberto dara [facility] POCT GLUCOSE (AUTOMATED) 2020-01-24 05:58:[address] [facility] POCT GLUCOSE (AUTOMATED) 2020-01-24 01:41:[address] [facility] POCT GLUCOSE (AUTOMATED) 2020-01-23 22:42:[address] [facility] POCT GLUCOSE (AUTOMATED) 2020-01-23 17:49:00 Joana [facility] ECHO ROUTINE W/DOPPLER 2020-01-23 16:00:[address] [facility] POCT GLUCOSE (AUTOMATED) 2020-01-23 13:36:[address] [facility] URIC ACID 2020-01-23 08:52:00 Cuauhtemoc Paul [facility] MAGNESIUM 2020-01-23 08:52:00 Humberto adra [facility] COMP. METABOLIC PANEL 2020-01-23 08:52:00 Humberto dara [facility] ([id number]) [facility] ACUTE CARE VENOUS BLOOD 2020-01-23 08:52:00 Humberto dara [facility] CBC WITH DIFF 2020-01-23 08:52:00 Humberto [facility] N-TERMINAL PRO-BNP 2020-01-23 08:52:00 Cuauhtemoc Paul [facility] POCT GLUCOSE (AUTOMATED) 2020-01-23 01:16:[address] [facility] POCT GLUCOSE (AUTOMATED) 2020-01-22 17:52:00 Joana [facility] POCT GLUCOSE (AUTOMATED) 2020-01-22 13:46:00 Joana [facility] VITAMIN D, 25-OH 2020-01-22 11:22:00 Humberto [facility] URIC ACID 2020-01-22 10:10:00 Cuauhtemoc Paul [facility] MAGNESIUM 2020-01-22 10:10:00 Cuauhtemoc Paul [facility] COMP. METABOLIC PANEL 2020-01-22 10:10:00 Cuauhtemoc Paul [facility] ([id number]) [facility] CBC WITH DIFF 2020-01-22 10:10:00 Humberto dara [facility] N-TERMINAL PRO-BNP 2020-01-22 10:10:00 Cuauhtemoc Paul [facility] ACUTE CARE VENOUS BLOOD 2020-01-22 10:09:00 Cuauhtemoc Paul [facility] POCT GLUCOSE (AUTOMATED) 2020-01-22 05:40:00 Joana [facility] VANCOMYCIN TROUGH 2020-01-22 02:32:00 Cuauhtemoc Paul [facility] POCT GLUCOSE (AUTOMATED) 2020-01-22 01:43:[address] [facility] POCT GLUCOSE (AUTOMATED) 2020-01-21 17:37:[address] [facility] POCT GLUCOSE (AUTOMATED) 2020-01-21 13:57:[address] [facility] PHOSPHORUS 2020-01-21 11:31:00 Humberto dara [facility] MAGNESIUM 2020-01-21 11:31:00 Humberto [facility] VITAMIN B12, LEVEL 2020-01-21 11:31:00 Humberto dara [facility] COMP. METABOLIC PANEL 2020-01-21 11:31:00 Cuauhtemoc Paul [facility] ([id number] CBC WITH DIFF 2020-01-21 11:31:00 Humberto [facility] N-TERMINAL PRO-BNP 2020-01-21 11:31:00 Humberto dara [facility] PROCALCITONIN 2020-01-21 11:31:00 Humberto [facility] ACUTE CARE VENOUS BLOOD 2020-01-21 11:30:00 Cuauhtemoc Paul [facility] POCT GLUCOSE (AUTOMATED) 2020-01-21 05:05:[address] [facility] POCT GLUCOSE (AUTOMATED) 2020-01-21 02:17:[address] [facility] POCT GLUCOSE (AUTOMATED) 2020-01-20 22:06:[address] [facility] PHOSPHORUS 2020-01-20 14:29:00 Humberto dara [facility] URIC ACID 2020-01-20 14:29:00 Humberto [facility] MAGNESIUM 2020-01-20 14:29:00 Humberto [facility] TROPONIN I 2020-01-20 14:29:00 Joana [facility] THYROID STIMULATING 2020-01-20 14:29:00 Cuauhtemoc Paul [facility] HORMONE [facility] BASIC METABOLIC PANEL 2020-01-20 14:29[facility] ([facility], K, CL, CO2, GLUCOSE, Medica l Branch BUN, CREATININE, CA) LIPID PANEL ([id number])(TOTAL 2020-01-20 14:29:00 Cuauhtemoc Paul [facility] CHOLESTEROL, [facility] TRIGLYCERIDES, HDL) CBC WITH DIFF 2020-01-20 14:29:00 Joana [facility] N-TERMINAL PRO-BNP 2020-01-20 14:29:00 Humberto [facility] POCT GLUCOSE (AUTOMATED) 2020-01-20 13:45:00 Joana [facility] BLOOD CULTURE SCREEN 2020-01-20 03:45:00 Frankie Stern [facility] URINE CULTURE 2020-01-20 03:45:00 Frankie Stern Teresa [facility] BLOOD CULTURE SCREEN 2020-01-20 03:30:00 Frankie Stern [facility] XR CHEST 1 VW 2020-01-20 03:14:31 Frankie Stern [facility] CBC WITH DIFF 2020-01-20 02:35:00 Frankie Stern [facility] GLYCOSYLATED HEMOGLOBIN 2020-01-20 02:35:00 [facility] HB ECG ROUTINE & RHYTHM 2020-01-20 02:25:07 Frankie Stern Teresa [facility] STRIP [facility] URINALYSIS 2020-01-20 02:19:00 Frankie Stern [facility] CREATINE KINASE 2020-01-20 02:09:00 [facility] 2020-01-20 02:09:00 Frankie Stern [facility] TROPONIN I 2020-01-20 02:09:00 Frankie Stern [facility] COMP. METABOLIC PANEL 2020-01-20 02:09:00 Frankie Stern Teresa [facility] ([id number]) Medical Branch N-TERMINAL PRO-BNP 2020-01-20 02:09:00 Frankie Stern [facility] LACTIC ACID WHOLE BLOOD 2020-01-20 02:09:00 Frankie Stern [facility] COVID-19 (ID NOW RAPID 2020-01-20 02:09:00 Frankie Stern [facility] TESTING) Medical [facility] LAB ONLY COVID 2020-01-20 02:09:00 Frankie Stern [place] INTERPRETATION [facility] CONSENT/REFUSAL FOR 2020-01-19 23:39:26 Doctor Unakenneth [facility] DIAGNOSIS AND TREATMENT [place] [facility] NOTICE OF PRIVACY 2020-01-19 23:39:06 Doctor Marcos, [facility] PRACTICES [facility] [place] URINALYSIS 2018-10-14 04:24:00 Basilio Gonzalez [facility] XR CHEST 1 VW 2018-10-14 03:38:35 Basilio Gonzalez [facility] LIPASE 2018-10-14 03:26:00 Basilio Gonzalez [facility] TROPONIN I 2018-10-14 03:26:00 Basilio Gonzalez [facility] COMP. METABOLIC PANEL 2018-10-14 03:26:00 Basilio Gonzalez [facility] ([id number]) [facility] CBC WITH DIFFERENTIAL 2018-10-14 03:26:00 Basilio [facility] N-TERMINAL PRO-BNP 2018-10-14 03:26:00 Basilio Gonzalez [facility] EKG-12 LEAD 2018-10-14 03:18:14 Basilio Gonzalez [facility] CONSENT/REFUSAL FOR 2018-10-14 02:32:15 Doctor Marcos [facility] DIAGNOSIS AND TREATMENT [place] [facility] POCT GLUCOSE (AUTOMATED) 2018-09-25 16:43:00 Truong Winters [facility] GLYCOSYLATED HEMOGLOBIN 2018-09-25 16:20:00 Jarod Lucas [facility] (A1C) Medical Branch POCT GLUCOSE (AUTOMATED) 2018-09-25 12:38:00 Movva, [facility] 2018-09-25 08:42:00 Savage Reinoso [facility] MAGNESIUM 2018-09-25 08:42:00 Movva, [facility] BASIC METABOLIC PANEL 2018-09-25 08:42:00 [facility] (NA, K, CL, CO2, GLUCOSE, Medica l Branch BUN, CREATININE, CA) POCT GLUCOSE (AUTOMATED) 2018-09-24 20:54:00 Movva, [facility] PO[facility] GLU[facility]SE (AUTOMATED) 2018-09-24 16:27:00 Movva, Truong Uni versity [facility] POCT GLUCOSE (AUTOMATED) 2018-09-24 12:29:00 Movva, [facility] PHOSPHORUS 2018-09-24 08:00:00 Savage Reinoso [facility] URIC ACID 2018-09-24 08:00:00 Savage Reinoso [facility] MAGNESIUM 2018-09-24 08:00:00 Movva, [facility] BASIC METABOLIC PANEL 2018-09-24 08:00:00 [facility] (NA, K, CL, CO2, GLUCOSE, Medica l Branch BUN, CREATININE, CA) POCT GLUCOSE (AUTOMATED) 2018-09-23 20:51:00 Movva, [facility] POCT GLU[facility]SE (AUTOMATED) 2018-09-23 16:29:00 Movva, Truong Uni [facility]ity [facility] POCT GLUCOSE (AUTOMATED) 2018-09-23 12:40:00 Movva, Truong Uni versity [facility] POCT GLUCOSE (AUTOMATED) 2018-09-22 21:04:00 Movva, Truong Uni versity of [facility] POCT GLUCOSE (AUTOMATED) 2018-09-22 16:49:00 Movva, Truong Uni versity of [facility] POCT GLUCOSE (AUTOMATED) 2018-09-22 12:58:00 Movva, Truong [facility] [facility] MAGNESIUM 2018-09-22 09:34:00 [facility]OL[facility]EL 2018-09-22 09:34:00 [facility] (NA, K, CL, CO2, GLUCOSE, Medica l Branch BUN, CREATININE, CA) CBC WITH DIFFERENTIAL 2018-09-22 09:34:00 [facility] LACTIC ACID WHOLE BLOOD 2018-09-22 02:57:00 Jared Salvador [facility] POCT GLUCOSE (AUTOMATED) 2018-09-22 00:56:00 [facility] COMP. METABOLIC PANEL 2018-09-21 22:02:00 Sukhjinder Hernandez [facility] ([id number]) [facility] N-TERMINAL PRO-BNP 2018-09-21 22:02:00 Sukhjinder Hernandez [facility] LACTIC ACID WHOLE BLOOD 2018-09-21 22:02:00 Sukhjinder Hernandez [facility] CBC WITH DIFFERENTIAL 2018-09-21 22:02:00 Sukhjinder Hernandez [facility] ASSIGNMENT OF BENEFITS 2018-09-21 21:21:14 Doctor Unassigned, [facility] Name Medical [place] XR CHEST 1 VW 2018-09-21 20:51:28 Sukhjinder Hernandez [facility] NOTICE OF PRIVACY 2018-09-21 19:54:22 Doctor Unakenneth, [facility] PRACTICES [facility] CONSENT/REFUSAL FOR 2018-09-21 19:54:03 Doctor Unassigned, [facility] DIAGNOSIS AND TREATMENT [place] [facility] [place] BILATERAL VENOUS DUPLEX 2018-09-21 19:06:16 Sukhjinder Hernandez [facility] LOWER EXTREMITY BY Medical [facility] h VASCULAR LAB Encounters Start End Encounter Admission Attending Care Care Encounter Source Date/Time Date/Time Type Type Clinicians Facility Department ID 2020-12-10 Emergency [facility] [id number] Univers 22:04:02 ity [facility] 2020-12-09 Emergency [facility] [id number] Univers [facility]:12[facility]09 Emergency [facility] [id number] Univers 05:40[facility]38 [facility] 2020-12-08 Emergency [facility] [id number] Univers 22:16:15 ity of [facility] 2020-12-08 Emergency [facility] [id number] Univers 19:25:53 ity of [facility] 2020-12-08 Emergency [facility] [id number] Univers 10:36:56 ity of [facility] 2020-11-09 2020-11-09 Environmental Services Tech Francisca Adams Lab Main [facility] 1.2.8 40.114 [id number] Univers 08:35:14 08:50:14 Visit Tate Foss [id number] ity of [place] 4.2.7.2.686 [place] Professio [phone] [address] 2020-11-09 2020-11-09 Outpatient R [facility] [id number] -[id number] Univers 08:30:00 08:30:00 [id number] ity of [facility] 2020-11-09 2020-11-09 Outpatient [facility] [id number] Univers 08:30:00 08:30:00 TATE ity [facility] 2020-11-09 2020-11-09 Orders Doctor TALA 1.2.840.114 [id number] Univers 00:00:00 00:00:00 Only Unassigned, ANN [id number] ity of [place] [facility] 4.2.7.2.686 Rj as [phone] [facility] 009 Branch 2020-10-21 2020-10-21 [facility] 1.2.840.114 [id number] Univers 07:53:00 09:18:00 Abril Thornton [id number] [place] [phone] [facility] 084 Branch 2020-10-03 2020-10-03 [facility]aq [facility] 1.2.840.114 [id number] Univers 00:00:00 00:00:00 Nadia Thornton [id number] [place] [phone] Nd dical nal 059 Branch [facility] 2020-07-03 2020-07-03 Outpatient [facility] [id number] Univers 00:00:00 00:00:00 ity of [facility] 2020-06-29 2020-06-29 Outpatient [facility] [id number] Univers 00:00:00 00:00:00 ity of [facility] 2020-06-29 2020-06-29 Orders Doctor TALA 1.2.840.114 [id number] Univers 00:00:00 00:00:00 Only Unassigned, ANN 350.1.13.10 ity of [place] [facility] 4.2.7.2.686 Rj as [phone] [facility] 009 Branch 2020-05-10 2020-05-10 Emergency Frankie Stern [facility] 1.2.840.114 [id number] Univers 17:37:00 21:37:00 Teresa Thornton 350.1.13.10 i [place] [phone] [facility] 084 Branch 2020-05-10 2020-05-10 Orders Doctor TALA 1.2.840.114 [id number] Univers 00:00:00 00:00:00 Only Unassigned, ANN 350.1.13.10 ity of [place] [facility] 4.2.7.2.686 Rj as [phone] [facility] 009 Branch 2020-04-30 2020-04-30 Outpatient Paresh AUGUSTINE, [facility] [id number] Univers 14:30:00 14:30:00 SENDIL ity of [facility] 2020-04-27 2020-04-27 Transition Manju Chavez 1.2.840.114 [id number] Univers 00:00:00 00:00:00 of Care Deanna Leyva 350.1.13.10 i ty of [place] [phone] [facility] 403 Branch 2020-04-20 2020-04-26 Hospital Sis Cowan 1.2.840. 114 [id number] Univers 15:22:00 20:35:00 Encounter Harvinder Nino Paras Ann 350.1.13. 10 ity of [facility] 4.2.7.2. 686 [place] [phone] [facility] 099 Branch 2020-04-23 2020-04-23 Outpatient R [facility] [id number] -[id number] Univers 14:00:00 14:00:00 [id number] ity of [facility] 2020-04-23 2020-04-23 Outpatient [facility] [id number] Univers 14:00:00 14:00:00 DEBRA ity of [facility] 2020-04-09 2020-04-09 Outpatient R [facility] [id number] -[id number] Univers 14:00:00 14:00:00 [id number] ity of [facility] 2020-03-29 2020-03-29 Outpatient R [facility] [id number] -[id number] Univers 14:20:00 14:20:00 [id number] ity [facility] 2020-03-29 2020-03-29 Orders Doctor TALA 1.2.840.114 [id number] Univers 00:00:00 00:00:00 Only Unassigned, ANN 350.1.13.10 ity of [place] [facility] 4.2.7.2.686 Rj as [phone] [facility] 009 Branch 2020-03-21 2020-03-21 Transition Manju Shabazz 1.2.840.114 [id number] Univers 00:00:00 00:00:00 of Care Sun Leyva 350.1.13.10 it y [place] [phone] [facility] 403 Branch 2020-03-16 2020-03-16 Office [facility] 1.2.840.114 [id number] Univers 14:18:36 15:20:44 Visit Nadia [place] 350.1.13.10 it[place] [phone] [facility] 059 [facility] 2020-03-16 2020-03-16 Outpatient [facility] [id number] Univers 14:30:00 14:30:00 SENDIL [id number] ity [facility] 2020-03-16 2020-03-16 Outpatient R DAVIDE [facility] [id number] Univers 14:30:00 14:30:00 SENDIL [facility] 2020-03-05 2020-03-05 Emergency Erick, [facility] 1.2.840.114 [id number] Univers 14:27:00 19:34:00 Avery Thornton 350.1.13.10 i [place] [phone] [facility] 084 Branch 2020-03-02 2020-03-02 Outpatient R [facility] [id number] Univers 11:00:00 11:00:00 [id number] [facility] 2020-03-02 2020-03-02 Outpatient [facility] [id number] Univers 11:00:00 11:00:00 SENDIL [facility] 2020-03-02 2020-03-02 Environmental Services Tech 2, Adc Lab [facility] 1.2.840.114 [id number] Univers 10:11:56 10:26:56 Visit Nadia Augustine 350.1.13. 10 [place] [phone] Nd dical nal 353 [facility] 2020-02-17 2020-02-17 Office Davide [facility] 1.2.840.114 [id number] Univers 14:42:25 15:49:10 Visit Nadia [place] 350.1.13.10 [place] [phone] Nd dical nal 059 [facility] 2020-02-17 2020-02-17 Outpatient [facility] [id number] Univers 15:00:00 15:00:00 SENDIL [facility] 2020-02-17 2020-02-17 Orders Doctor EDGAR 1.2.840.114 [id number] Univers 00:00:00 00:00:00 Only Unassigned, ANN 350.1.13.10 ity of [place] [facility] 4.2.7.2.686 Rj as [phone] [facility] 009 Branch 2020-02-07 2020-02-07 Outpatient R [facility] [id number] -[id number] Univers 15:20:00 15:20:00 [id number] ity of [facility] 2020-02-07 2020-02-07 Outpatient R [facility] [id number] Univers 15:20:00 15:20:00 ity of [facility] 2020-01-27 2020-01-27 Transition Manju Shabazz 1.2.840.114 [id number] Univers 00:00:00 00:00:00 of Care Sun Leyva 350.1.13.10 it y of [place] [phone] [facility] 403 Branch 2020-01-19 2020-01-25 [facility] Frankie Stern [facility] 1.2.840.1 14 [id number] Univers 18:01:00 14:09:00 Encounter Karin Bernard 350.1.13.10 [place] of [place] [phone] [facility] 081 Branch 2020-01-19 2020-01-19 Outpatient [facility] [id number] Univers 17:40:00 17:40:00 KELLEY grayson o monico [facility] 2020-01-19 2020-01-19 Nurse Nurse, [facility] 1.2 .840.114 [id number] Univers 17:17:45 17:32:45 Visit Shant Venegas [facility] 350.1.13.10 ity of [place] 4.2.7.2.686 Rj as Amariio [phone] [place] [address] Branch [address] 2020-01-19 2020-01-19 Outpatient R [facility] [id number] -[id number] Univers 17:30:00 17:30:00 [id number] ity of [facility] 2020-01-19 2020-01-19 Outpatient [facility] [id number] Univers 17:30:00 17:30:00 PETER ity of [facility] 2020-01-19 2020-01-19 Letter Doctor TALA 1.2.840.114 [id number] Univers 00:00:00 00:00:00 (Out) Unassigned, ANN 350.1.13.10 [facility] 4.2.7.2.686 Rj as [phone] [facility] 044 Branch 2019-04-08 2019-04-15 [facility] [place] [id number] 13317 [place] 00:00:00 00:00:00 MIGUEL [address] 2018-10-13 2018-10-14 Emergency [facility] 1.2.848.619 [id number] Univers 21:35:22 00:20:00 Basilio Thornton 350.1.13.10 it[place] of [place] [phone] [facility] 084 [place] 2018-10-13 2018-10-14 Emergency [facility] 1.2.633.094 [id number] 21:35:22 00:20:00 Basilio Thornton 350.1.13.10 [place] 4.2.7.2.686 [place] [phone] [facility] 2018-09-27 2018-09-27 Transition Manju Shine 1.2.840.114 [id number] Univers 00:00:00 00:00:00 of Care Joanie Mittal Gordon 350.1.13.10 i ty of [place] [phone] [facility] 403 Branch 2018-09-27 2018-09-27 Transition Manju Shine 1.2.840.114 [id number] 00:00:00 00:00:00 of Care Joanie Mittal Leyva 350.1.13.10 [place] [phone] [facility] 2018-09-21 2018-09-25 [facility] 1.2.840.1 14 [id number] Univers 15:30:48 14:00:00 Encounter Truong Winters 350.1.13.10 it[place] of [place] [phone] [facility] 081 Branch 2018-09-21 2018-09-25 [facility] 1.2.840.1 14 [id number] 15:30:48 14:00:00 Encounter Truong Winters 350.1.13.10 [place] 4.2.7.2.686 [place] [phone] 08 2018-09-21 2018-09-21 [facility] Yairmirna David.WingWai [facility] 1.2.8 40.114 [id number] Univers 15:00:00 15:29:00 Encounter Stu, Francisca [facility] [place] 3 50.1.13.10 ity of [place] 4.2.7.2.686 [facility] [phone] [facility] 206 Branch 2018-09-21 2018-09-21 [facility] 1.2.840.114 [id number] 15:00:00 15:29:00 Encounter Nadia FaganWingWai Thornton 350.1.13.10 [place] 4.2.7.2.686 [place] [phone] 206 2018-09-21 2018-09-21 Orders Doctor TALA 1.2.840.114 [id number] Univers 00:00:00 00:00:00 Only Unassigned, ANN 350.1.13.10 ity of [place] [facility] 4.2.7.2.686 Rj as [phone] [facility] 009 Branch 2018-09-21 2018-09-21 Orders Doctor TALA 1.2.840.114 [id number] 00:00:00 00:00:00 Only Unassigned, ANN 350.1.13.10 [place] [facility] 4.2.7.2.686 [id number] 009 Results Test Description Test Time Test Comments Results Result Comments Source COMP. METABOLIC PANEL (10658) 2020-05-10 23:57:26 Test Item Value Reference Range Interpretation Comme nts NA (test code = 9453851809) 135 mmol/L 135-145 K (test code = 6094435767) 4.1 mmol/L 3.5-5.0 S light hemolysis CL (test code = 8359156204) 95 mmol/L 98-108 L CO2 TOTAL (test code = 35 mmol/L 23-31 H 7721902473) AGAP (test code = 2-16 2456184524) BUN (test code = 15 mg/dL 7-23 Slight hemo lysis 7428349129) GLUCOSE (test code = 265 mg/dL 70-110 H 9392322617) CREATININE (test code = 0.71 mg/dL 0.50-1.04 2095666585) TOTAL BILI (test code = 0.8 mg/dL 0.1-1.9 1868420528) CALCIUM (test code = 8.8 mg/dL 8.6-10.6 8715386439) T PROTEIN (test code = 6.3 g/dL 6.3-8.2 6688750366) ALBUMIN (test code = 3.6 g/dL 3.5-5.0 4962197287) ALK PHOS (test code = 109 U/L 34-122 Slight hemolysis 0118996709) ALTv (test code = 1742-6) 15 U/L 5-35 AST(SGOT) (test code = 28 U/L 13-40 Sligh t hemolysis 3772724407) eGFR (test code = mL/min/1.73m2 3580119148) BRITTANY (test code = BRITTANY) Association of Glomerular Filtration Rate (GFR) and Staging of Kidney Disease* + + +--- +| GFR (mL/min/1.73 m2) ?| With Kidney Damage ?| ?Without Kidney Damage+ -----+ --+ ---+| ?>90 ?| ?Stage one ?| ? Normal ?+ + +-- +| ?60-89 ?| ?Stage two ?| ? Decreased GFR ? + + +--- +| ?30-59 ?| ?Stage three ?| ? Stage three ? + + +--- +| ?15-29 ?| ?Stage four ? | ? Stage four ?+ + +-- +| ?<15 (or dialysis) ? ?| ?Stage five ? | ? Stage five ?+ + +-- + *Each stage assumes the associated GFR level has been in effect for at least three months. ?Stages 1 to 5, with or without kidney disease, indicate chronic kidney disease. Notes: Determination of stages one and two (with eGFR >59mL/min/1.73 m2) requires estimation of kidney damage for at least three months as defined by structural or functional abnormalities of the kidney, manifested by either:Pathological abnormalities or Markers of kidney damage (including abnormalities in the composition of the blood or urine or abnormalities in imaging tests). Lab Interpretation (test Abnormal code = 72826-8) [facility] 23:48:45 Test Item Value Reference Range Interpretation Comments APPEARANCE (test code = Cloudy Clear A 0680491646) COLOR (test code = Yellow Yellow 2404675049) PH (test code = 4.8-8.0 8757264686) SP GRAVITY (test code = 1.003-1.030 5860716988) GLU U QUAL (test code = Normal Normal 6128198485) BLOOD (test code = 1+ Negative A 0697752930) KETONES (test code = Negative Negative 7009681054) PROTEIN (test code = Negative Negative 2887-8) UROBILIN (test code = 2.0 mg/dL Normal A 9757694876) BILIRUBIN (test code = Negative Negative 0855998655) NITRITE (test code = Positive Negative A 3371364429) LEUK JEAN (test code = 500/uL Negative A 3426351613) RBC/HPF (test code = See_Comment H [Autom ated message] 4974366383) The system [employer] generated this result transmit teri reference range : 0 - 3 HPF. The refe rence range was not u sed to interpret th is result as normal/abnormal . WBC/HPF (test code = >182 See_Comment H [Autom ated message] 6748241691) The system [employer] generated this result transmit teri reference range : 0 - 5 HPF. The refe rence range was not u sed to interpret th is result as normal/abnormal . BACTERIA (test code = Few Negative A 3419932737) AMORPHOUS (test code = Rare Rare HPF 9377301821) SQ EPITH (test code = HPF 4319826497) WBC CLUMPS (test code = See_Comment H [Au tomated message] 5767928651) The system whic h generated this result transmit teri reference range : <=1 HPF. The refere nce range was not u sed to interpret th is result as normal/abnormal . YEAST BUD (test code = See_Comment H [Aut omated message] 6305979465) The system whic h generated this result transmit teri reference range : <=1 HPF. The refere nce range was not u sed to interpret th is result as normal/abnormal . Lab Interpretation (test Abnormal code = 15041-1) [facility] NOW RAPID TESTING)2020-05-10 23:46:18 Test Item Value Reference Range Interpretation Comments SARS-CoV-2 Rapid ID NOW Positive Not Detected A (test code = 36482-1) BRITTANY (test code = BRITTANY) ID NOW COVID-19 Assay is an isothermal nucleic acid amplification test intended for the qualitative detection of nucleic acid from SARS-CoV-2 viral RNA in nasopharyngeal (SUPPLY CHAIN PROCUREMENT MANAGER) specimens. It is used under Emergency Use Authorization (EUA) by FDA. The limit of detection (LOD) of the assay is 125 Genome Equivalents/mL. A positive result is indicative of the presence of SARS-CoV-2 RNA. ?Clinical correlation with patient history and other diagnostic information is necessary to determine patient infection status. A negative (Not Detected) result does not preclude SARS-CoV-2 infection. In patients with clinical symptoms and other tests that are consistent with SARS-CoV-2 infection, negative results should be treated as presumptive negative and a new specimen should be tested with alternative PCR molecular test. Invalid: Please collect a new specimen for repeat patient testing if clinically indicated. Lab Interpretation Abnormal (test code = 07105-8) [facility] WITH [id number] 23:42:40 Test Item Value Reference Range Interpretation Comments WBC (test code = See_Comment [Automated 1532-2) message] The sy stem which generated this result transmitted reference range : 4.30 - 11.10 10*3/?L. The reference range was not used to interpret this result as normal/abnormal . RBC (test code = See_Comment [Automated 242-8) message] The sy stem which generated this result transmitted reference range : 3.93 - 5.25 10*6/?L. The reference range was not used to interpret this result as normal/abnormal . HGB (test code = 12.1 g/dL 11.6-15.0 718-7) HCT (test code = 37.6 % 35.7-45.2 4544-3) MCV (test code = 84.7 fL 80.6-95.5 787-2) MCH (test code = 27.3 pg 25.9-32.8 785-6) MCHC (test code = 32.2 g/dL 31.6-35.1 786-4) RDW-SD (test code = 48.2 fL 39.0-49.9 27418-6) RDW-CV (test code = 15.8 % 12.0-15.5 H 788-0) PLT (test code = See_Comment [Automated 777-3) message] The sy stem which generated this result transmitted reference range : 166 - 358 10*3/ ?L. The reference r milad was not used to interpret this result as normal/abnormal . MPV (test code = 10.9 fL 9.5-12.9 28153-1) NRBC/100 WBC (test See_Comment [Automat ed code = 2121283034) message] The system which generated this result transmitted reference range : 0.0 - 10.0 /100 WBCs. The refer ence range was not u sed to interpret th is result as normal/abnormal . NRBC x10^3 (test code <0.01 See_Comment [Auto mated = 4690159579) message] The s ystem which generated this result transmitted reference range : 10*3/?L. The reference range was not used to interpret this result as normal/abnormal . GRAN MAT (NEUT) % 71.0 % (test code = 770-8) IMM GRAN % (test code 0.90 % = 5179857728) LYMPH % (test code = 16.0 % 736-9) MONO % (test code = 9.1 % 5905-5) EOS % (test code = 2.5 % 713-8) BASO % (test code = 0.5 % 706-2) GRAN MAT x10^3(ANC) 7.24 10*3/uL 1.88-7.09 H (test code = 3479269333) IMM GRAN x10^3 (test 0.09 10*3/uL 0.00-0.06 H code = 2495266867) LYMPH x10^3 (test code 1.63 10*3/uL 1.32-3.29 = 731-0) MONO x10^3 (test code 0.93 10*3/uL 0.33-0.92 H = 742-7) EOS x10^3 (test code = 0.26 10*3/uL 0.03-0.39 711-2) BASO x10^3 (test code 0.05 10*3/uL 0.01-0.07 = 704-7) Lab Interpretation Abnormal (test code = 29019-4) [facility] GLUCOSE (AUTOMATED)2020-04-26 21:06:02 Test Item Value Reference Range Interpretation Comments POCT GLU (test code = 3471228335) 234 mg/dL 70-110 H Lab Interpretation (test code = Abnormal 68566-7) [facility] GLUCOSE (AUTOMATED)2020-04-26 18:45:33 Test Item Value Reference Range Interpretation Comments POCT GLU (test code = 2950619152) 252 mg/dL 70-110 H Lab Interpretation (test code = Abnormal 89811-5) [facility] WITH [id number] 17:44:59 Test Item Value Reference Range Interpretation Comments WBC (test code = See_Comment [Automated 2090-2) message] The sy stem which generated this result transmitted reference range : 4.30 - 11.10 10*3/?L. The reference range was not used to interpret this result as normal/abnormal . RBC (test code = See_Comment [Automated 739-8) message] The sy stem which generated this result transmitted reference range : 3.93 - 5.25 10*6/?L. The reference range was not used to interpret this result as normal/abnormal . HGB (test code = 12.5 g/dL 11.6-15.0 718-7) HCT (test code = 38.8 % 35.7-45.2 4544-3) MCV (test code = 83.3 fL 80.6-95.5 787-2) MCH (test code = 26.8 pg 25.9-32.8 785-6) MCHC (test code = 32.2 g/dL 31.6-35.1 786-4) RDW-SD (test code = 46.9 fL 39.0-49.9 80732-1) RDW-CV (test code = 15.5 % 12.0-15.5 788-0) PLT (test code = See_Comment [Automated 777-3) message] The sy stem which generated this result transmitted reference range : 166 - 358 10*3/ ?L. The reference r milad was not used to interpret this result as normal/abnormal . MPV (test code = 10.7 fL 9.5-12.9 45547-1) NRBC/100 WBC (test See_Comment [Automat ed code = 2235682966) message] The system which generated this result transmitted reference range : 0.0 - 10.0 /100 WBCs. The refer ence range was not u sed to interpret th is result as normal/abnormal . NRBC x10^3 (test code <0.01 See_Comment [Auto mated = 5535874307) message] The s ystem which generated this result transmitted reference range : 10*3/?L. The reference range was not used to interpret this result as normal/abnormal . GRAN MAT (NEUT) % 84.2 % (test code = 770-8) IMM GRAN % (test code 2.10 % = 9348826614) LYMPH % (test code = 9.4 % 736-9) MONO % (test code = 2.4 % 5905-5) EOS % (test code = 1.3 % 713-8) BASO % (test code = 0.6 % 706-2) GRAN MAT x10^3(ANC) 5.62 10*3/uL 1.88-7.09 (test code = 6742885219) IMM GRAN x10^3 (test 0.14 10*3/uL 0.00-0.06 H code = 7255907596) LYMPH x10^3 (test code 0.63 10*3/uL 1.32-3.29 L = 731-0) MONO x10^3 (test code 0.16 10*3/uL 0.33-0.92 L = 742-7) EOS x10^3 (test code = 0.09 10*3/uL 0.03-0.39 711-2) BASO x10^3 (test code 0.04 10*3/uL 0.01-0.07 = 704-7) Lab Interpretation Abnormal (test code = 13844-3) [facility] METABOLIC PANEL (NA, K, CL, CO2, GLUCOSE, BUN, CREATININE, CA)2020-04-26 17:40:41 Test Item Value Reference Range Interpretation Comments NA (test code = 130 mmol/L 135-145 L [id number]) K (test code = 3.7 mmol/L 3.5-5.0 [id number]) CL (test code = 89 mmol/L 98-108 L [id number]) CO2 TOTAL (test code = 35 mmol/L 23-31 H [id number]) AGAP (test code = 2-16 [id number]) BUN (test code = 26 mg/dL 7-23 H [id number]) GLUCOSE (test code = 284 mg/dL 70-110 H 3460427873) CREATININE (test code = 0.87 mg/dL 0.50-1.04 1185742251) CALCIUM (test code = 8.6 mg/dL 8.6-10.6 7665482961) eGFR Calculation mL/min/1.73m2 (Non-) (test code = 6386678438) eGFR Calculation mL/min/1.73m2 () (test code = 0101335364) BRITTANY (test code = BRITTANY) Association of Glomerular Filtration Rate (GFR) and Staging of Kidney Disease* + --+ --+ ------+| GFR (mL/min/1.73 m2) ?| With Kidney Damage ?| ?Without Kidney Damage+ --------+ --------+ +| ?>90 ?| ?Stage one ?| ? Normal ?+ ---+ ---+ -------+| ?60-89 ?| ?Stage two ?| ? Decreased GFR ? + --+ --+ ------+| ?30-59 ?| ?Stage three ?| ? Stage three ? + --+ --+ ------+| ?15-29 ?| ?Stage four ? | ? Stage four ?+ ---+ ---+ -------+| ?<15 (or dialysis) ? ?| ?Stage five ? | ? Stage five ?+ ---+ ---+ -------+ *Each stage assumes the associated GFR level has been in effect for at least three months. ?Stages 1 to 5, with or without kidney disease, indicate chronic kidney disease. Notes: Determination of stages one and two (with eGFR >59mL/min/1.73 m2) requires estimation of kidney damage for at least three months as defined by structural or functional abnormalities of the kidney, manifested by either:Pathological abnormalities or Markers of kidney damage (including abnormalities in the composition of the blood or urine or abnormalities in imaging tests). Lab Interpretation Abnormal (test code = 15138-7) [facility] 17[facility]40[facility]41 Test Item Value Reference Range Interpretation Comments MAGNESIUM (test code = 3919201438) 2.0 mg/dL 1.7-2.4 Lab Interpretation (test code = Normal 01188-9) [facility][id number] 17:36:22 Test Item Value Reference Interpretation Comments Range D-DIMER (test code = See_Comment H [Autom ated 6964866317) message] The system which generated this result transmitted reference range : <0.50 ?g/mL (FEU). The reference range was not used to interpret this result as normal/abnormal . BRITTANY (test code = This test may be BRITTANY) used in conjunction with a clinical pretest probability (PTP) assessment model to exclude venous thromboembolism (VTE) in patients suspected of deep venous thrombosis (DVT) and pulmonary embolism (PE) A D-Dimer value less than 0.50 ?g/ml (FEU) has a negative predicative value of 96 to 100% (95% CI)and 97 to 100% (95% CI) as an aid in the diagnosis of deep vein thrombosis (DVT) and pulmonary embolism when there is low or moderate pretest probability of PE or DVT. D-Dimer values are expressed in initial fibrinogen equivalent units (FEU)" The assay results should be used with other information, including the clinical context, in forming a diagnosis. Lab Interpretation Abnormal (test code = 70656-0) [facility]2020[facility] 16:58:45 Test Item Value Reference Range Interpretation Comments POCT GLU (test code = 3503932220) 316 mg/dL 70-110 H Lab Interpretation (test code = Abnormal 96031-5) [facility] COVID HMODMKYJAQDRDO9996-04-29 15:21:07COVID DMT InterpretationInterpretation/Recommendations: Molecular NAAT Tests for Active Infection with the SARS-CoV-2 Virus: The current test result is positive for the SARS-CoV-2 virus that causes COVID-19 illness. In fpiz-ap-qtahtxsz illness, the patient may be considered no longer infectious whenit has been after 10 days since symptom onset, the patient has been afebrile for 24 hours without the use of fever-reducing medications, AND other symptoms of COVID-19 are improving. However, in patients who have been severely ill with COVID-19 or are severely immunocompromised, isolation up to 20 days after symptom onset is recommended. Asymptomatic patients are considered infectious for the first 10 days subsequent to the initial positive test result. From the onset of symptoms, if any, this result is likely to remain positive up to 2-4 weeks. Tests for IgM and/or IgG Antibodies to the SARS-CoV-2 Virus: ? Testing for IgM and IgG antibodies approximately 3 weeks after illness onset will likely indicate whether the patient has produced antibodies to the SARS-CoV-2 virus. However, some patients may take longer to develop detectable antibodies, while some patients who were infected with SARS-CoV-2 may never develop antibodies. While antibodies to SARS-CoV-2 may provide some degree of immunity, at this time the strength and duration of the antibody response is unknown. Interpretation Result Comments:These interpretation comments are based upon all COVID-19 testing the patient has had at [facility], including molecular NAAT testing (more commonly known as PCR testing and Rapid ID Now testing) and antibody testing. It does not take into account any testing that a patient has had outside of the [facility] medical record. [facility] LABORATORY SERVICESCOVID [id number] Rapid ID NOW (no units) ? ? Date ? Value ? 04/20/2020 ? Positive (A) ? ? ? 03/17/2020 ? Not Detected ? ? ? 03/05/2020 ? Not Detected ? ? ? 01/19/2020 ? Not Detected ? [facility]2020-04-26 13:36:55 Test Item Value Reference Range Interpretation Comments POCT GLU (test code = 4878294280) 285 mg/dL 70-110 H Lab Interpretation (test code = Abnormal 02727-4) [facility] GLUCOSE (AUTOMATED)2020-04-26 00:37:46 Test Item Value Reference Range Interpretation Comments POCT GLU (test code = 8076835157) 228 mg/dL 70-110 H Lab Interpretation (test code = Abnormal 31407-1) [facility] GLUCOSE (AUTOMATED)2020-04-25 21:34:47 Test Item Value Reference Range Interpretation Comments POCT GLU (test code = 8306233158) 188 mg/dL 70-110 H Lab Interpretation (test code = Abnormal 65469-3) [facility] GLUCOSE (AUTOMATED)2020-04-25 16:59:30 Test Item Value Reference Range Interpretation Comments POCT GLU (test code = 5416551588) 208 mg/dL 70-110 H Lab Interpretation (test code = Abnormal 27834-2) [facility] GLUCOSE (AUTOMATED)2020-04-25 13:48:55 Test Item Value Reference Range Interpretation Comments POCT GLU (test code = 6515853007) 129 mg/dL 70-110 H Lab Interpretation (test code = Abnormal 38616-0) [facility] (NA, K, CL, CO2, GLUCOSE, BUN, CREATININE, CA)2020-04-25 11:47:25 Test Item Value Reference Range Interpretation Comments NA (test code = 136 mmol/L 135-145 5129585292) K (test code = 3.7 mmol/L 3.5-5.0 8724024641) CL (test code = 93 mmol/L 98-108 L 2599876864) CO2 TOTAL (test code = 36 mmol/L 23-31 H 5761351301) AGAP (test code = 2-16 6877455537) BUN (test code = 23 mg/dL 7-23 1435786462) GLUCOSE (test code = 126 mg/dL 70-110 H 0367802834) CREATININE (test code = 0.81 mg/dL 0.50-1.04 7601877933) CALCIUM (test code = 8.9 mg/dL 8.6-10.6 6852095437) eGFR Calculation mL/min/1.73m2 (Non-) (test code = 6119537914) eGFR Calculation mL/min/1.73m2 () (test code = 9823453368) BRITTANY (test code = BRITTANY) Association of Glomerular Filtration Rate (GFR) and Staging of Kidney Disease* + --+ --+ ------+| GFR (mL/min/1.73 m2) ?| With Kidney Damage ?| ?Without Kidney Damage+ --------+ --------+ +| ?>90 ?| ?Stage one ?| ? Normal ?+ ---+ ---+ -------+| ?60-89 ?| ?Stage two ?| ? Decreased GFR ? + --+ --+ ------+| ?30-59 ?| ?Stage three ?| ? Stage three ? + --+ --+ ------+| ?15-29 ?| ?Stage four ? | ? Stage four ?+ ---+ ---+ -------+| ?<15 (or dialysis) ? ?| ?Stage five ? | ? Stage five ?+ ---+ ---+ -------+ *Each stage assumes the associated GFR level has been in effect for at least three months. ?Stages 1 to 5, with or without kidney disease, indicate chronic kidney disease. Notes: Determination of stages one and two (with eGFR >59mL/min/1.73 m2) requires estimation of kidney damage for at least three months as defined by structural or functional abnormalities of the kidney, manifested by either:Pathological abnormalities or Markers of kidney damage (including abnormalities in the composition of the blood or urine or abnormalities in imaging tests). Lab Interpretation Abnormal (test code = 84794-6) [facility] Test Item Value Reference Range Interpretation Comments MAGNESIUM (test code = 1404978415) 1.6 mg/dL 1.7-2.4 L Lab Interpretation (test code = Abnormal 35462-8) [facility] WITH [id number] 11:25:18 Test Item Value Reference Range Interpretation Comments WBC (test code = See_Comment [Automated 6690-2) message] The sy stem which generated this result transmitted reference range : 4.30 - 11.10 10*3/?L. The reference range was not used to interpret this result as normal/abnormal . RBC (test code = See_Comment [Automated 789-8) message] The sy stem which generated this result transmitted reference range : 3.93 - 5.25 10*6/?L. The reference range was not used to interpret this result as normal/abnormal . HGB (test code = 13.1 g/dL 11.6-15.0 718-7) HCT (test code = 41.6 % 35.7-45.2 4544-3) MCV (test code = 83.0 fL 80.6-95.5 787-2) MCH (test code = 26.1 pg 25.9-32.8 785-6) MCHC (test code = 31.5 g/dL 31.6-35.1 L 786-4) RDW-SD (test code = 46.9 fL 39.0-49.9 90049-1) RDW-CV (test code = 15.4 % 12.0-15.5 788-0) PLT (test code = See_Comment [Automated 777-3) message] The sy stem which generated this result transmitted reference range : 166 - 358 10*3/ ?L. The reference r milad was not used to interpret this result as normal/abnormal . MPV (test code = 11.1 fL 9.5-12.9 39922-2) NRBC/100 WBC (test See_Comment [Automat ed code = 3087039530) message] The system which generated this result transmitted reference range : 0.0 - 10.0 /100 WBCs. The refer ence range was not u sed to interpret th is result as normal/abnormal . NRBC x10^3 (test code <0.01 See_Comment [Auto mated = 1320589718) message] The s [employer] which generated this result transmitted reference range : 10*3/?L. The reference range was not used to interpret this result as normal/abnormal . GRAN MAT (NEUT) % 76.0 % (test code = 770-8) IMM GRAN % (test code 0.60 % = 4839622392) LYMPH % (test code = 13.9 % 736-9) MONO % (test code = 7.5 % 5905-5) EOS % (test code = 1.8 % 713-8) BASO % (test code = 0.2 % 706-2) GRAN MAT x10^3(ANC) 7.04 10*3/uL 1.88-7.09 (test code = 8451864813) IMM GRAN x10^3 (test 0.06 10*3/uL 0.00-0.06 code = 6505869353) LYMPH x10^3 (test code 1.29 10*3/uL 1.32-3.29 L = 731-0) MONO x10^3 (test code 0.70 10*3/uL 0.33-0.92 = 742-7) EOS x10^3 (test code = 0.17 10*3/uL 0.03-0.39 711-2) BASO x10^3 (test code <0.03 0.01-0.07 = 704-7) Lab Interpretation Abnormal (test code = 86718-2) [facility] GLUCOSE (AUTOMATED)2020-04-25 00:29:32 Test Item Value Reference Range Interpretation Comments POCT GLU (test code = 2533712029) 235 mg/dL 70-110 H Lab Interpretation (test code = Abnormal 28958-2) [facility] GLUCOSE (AUTOMATED)2020-04-24 22:17:10 Test Item Value Reference Range Interpretation Comments POCT GLU (test code = 0341700432) 293 mg/dL 70-110 H Lab Interpretation (test code = Abnormal 35655-0) [facility] GLUCOSE (AUTOMATED)2020-04-24 17:34:46 Test Item Value Reference Range Interpretation Comments POCT GLU (test code = 9073896467) 323 mg/dL 70-110 H Lab Interpretation (test code = Abnormal 44082-5) [facility] GLUCOSE (AUTOMATED)2020-04-24 14:29:22 Test Item Value Reference Range Interpretation Comments POCT GLU (test code = 6752555429) 254 mg/dL 70-110 H Lab Interpretation (test code = Abnormal 71617-9) [facility] 13:52:34 Test Item Value Reference Range Interpretation Comments MAGNESIUM (test code = 7591073694) 1.9 mg/dL 1.7-2.4 Lab Interpretation (test code = Normal 41095-7) [facility] Center[facility] PAN[facility] (53235[facility] (ALB,T.PRO,BILI T,BU/BC,ALT,AST,ALK PHOS)2020-04-24 13:52:34 Test Item Value Reference Range Interpretation Comments TOTAL BILI (test code = 0378106790) 0.4 mg/dL 0.1-1.1 BILI UNCON (test code = 8511984669) 0.1 mg/dL 0.1-1.1 BILI CONJ (test code = 1793279405) 0.0 mg/dL 0.0-0.3 T PROTEIN (test code = 9797214538) 6.1 g/dL 6.3-8.2 L ALBUMIN (test code = 8307753408) 3.1 g/dL 3.5-5.0 L ALK PHOS (test code = 5153626067) 84 U/L 34-122 ALTv (test code = 1742-6) 17 U/L 5-35 AST(SGOT) (test code = 4404453336) 43 U/L 13-40 H Lab Interpretation (test code = Abnormal 48246-6) [facility]CBC WITH [id number] 11:20:32 Test Item Value Reference Range Interpretation Comments WBC (test code = See_Comment [Automated 8290-2) message] The sy stem which generated this result transmitted reference range : 4.30 - 11.10 10*3/?L. The reference range was not used to interpret this result as normal/abnormal . RBC (test code = See_Comment [Automated 579-8) message] The sy stem which generated this result transmitted reference range : 3.93 - 5.25 10*6/?L. The reference range was not used to interpret this result as normal/abnormal . HGB (test code = 13.3 g/dL 11.6-15.0 718-7) HCT (test code = 40.9 % 35.7-45.2 4544-3) MCV (test code = 83.1 fL 80.6-95.5 787-2) MCH (test code = 27.0 pg 25.9-32.8 785-6) MCHC (test code = 32.5 g/dL 31.6-35.1 786-4) RDW-SD (test code = 47.3 fL 39.0-49.9 60296-1) RDW-CV (test code = 15.5 % 12.0-15.5 788-0) PLT (test code = See_Comment [Automated 777-3) message] The sy stem which generated this result transmitted reference range : 166 - 358 10*3/ ?L. The reference r milad was not used to interpret this result as normal/abnormal . MPV (test code = 11.3 fL 9.5-12.9 51442-3) IPF % (test code = 5.6 % 1.3-7.7 Platelet count [id number]) measured by fluorescence method. NRBC/100 WBC (test See_Comment [Automat ed code = 1955509536) message] The system which generated this result transmitted reference range : 0.0 - 10.0 /100 WBCs. The refer ence range was not u sed to interpret th is result as normal/abnormal . NRBC x10^3 (test code <0.01 See_Comment [Auto mated = 8810939048) message] The s ystem which generated this result transmitted reference range : 10*3/?L. The reference range was not used to interpret this result as normal/abnormal . GRAN MAT (NEUT) % 56.8 % (test code = 770-8) IMM GRAN % (test code 0.70 % = 8076413585) LYMPH % (test code = 28.0 % 736-9) MONO % (test code = 9.3 % 5905-5) EOS % (test code = 4.8 % 713-8) BASO % (test code = 0.4 % 706-2) GRAN MAT x10^3(ANC) 2.62 10*3/uL 1.88-7.09 (test code = 5259154469) IMM GRAN x10^3 (test 0.03 10*3/uL 0.00-0.06 code = 1415916166) LYMPH x10^3 (test code 1.29 10*3/uL 1.32-3.29 L = 731-0) MONO x10^3 (test code 0.43 10*3/uL 0.33-0.92 = 742-7) EOS x10^3 (test code = 0.22 10*3/uL 0.03-0.39 711-2) BASO x10^3 (test code <0.03 0.01-0.07 = 704-7) LG GRAN LYMPHS (test Rare Rare code = 0965100673) Lab Interpretation Abnormal (test code = 35151-5) [facility] METABOLIC PANEL (NA, K, CL, CO2, GLUCOSE, BUN, CREATININE, CA)2020-04-24 11:19:05 Test Item Value Reference Range Interpretation Comments NA (test code = 134 mmol/L 135-145 L 5985780171) K (test code = 3.4 mmol/L 3.5-5.0 L 6365107650) CL (test code = 94 mmol/L 98-108 L 7782464413) CO2 TOTAL (test code = 33 mmol/L 23-31 H 1932163901) AGAP (test code = 2-16 2854069970) BUN (test code = 20 mg/dL 7-23 8796289486) GLUCOSE (test code = 235 mg/dL 70-110 H 7273752960) CREATININE (test code = 0.77 mg/dL 0.50-1.04 8771677192) CALCIUM (test code = 8.3 mg/dL 8.6-10.6 L 7267498356) eGFR Calculation mL/min/1.73m2 (Non-) (test code = 9510043597) eGFR Calculation mL/min/1.73m2 () (test code = 4587790875) BRITTANY (test code = BRITTANY) Association of Glomerular Filtration Rate (GFR) and Staging of Kidney Disease* + --+ --+ ------+| GFR (mL/min/1.73 m2) ?| With Kidney Damage ?| ?Without Kidney Damage+ --------+ --------+ +| ?>90 ?| ?Stage one ?| ? Normal ?+ ---+ ---+ -------+| ?60-89 ?| ?Stage two ?| ? Decreased GFR ? + --+ --+ ------+| ?30-59 ?| ?Stage three ?| ? Stage three ? + --+ --+ ------+| ?15-29 ?| ?Stage four ? | ? Stage four ?+ ---+ ---+ -------+| ?<15 (or dialysis) ? ?| ?Stage five ? | ? Stage five ?+ ---+ ---+ -------+ *Each stage assumes the associated GFR level has been in effect for at least three months. ?Stages 1 to 5, with or without kidney disease, indicate chronic kidney disease. Notes: Determination of stages one and two (with eGFR >59mL/min/1.73 m2) requires estimation of kidney damage for at least three months as defined by structural or functional abnormalities of the kidney, manifested by either:Pathological abnormalities or Markers of kidney damage (including abnormalities in the composition of the blood or urine or abnormalities in imaging tests). Lab Interpretation Abnormal (test code = 02095-0) [facility] CenterD-PIWOI3185-99-50 10:47:44 Test Item Value Reference Interpretation Comments Range D-DIMER (test code = See_Comment H [Autom ated 6411249854) message] The system which generated this result transmitted reference range : <0.50 ?g/mL (FEU). The reference range was not used to interpret this result as normal/abnormal . BRITTANY (test code = This test may be BRITTANY) used in conjunction with a clinical pretest probability (PTP) assessment model to exclude venous thromboembolism (VTE) in patients suspected of deep venous thrombosis (DVT) and pulmonary embolism (PE) A D-Dimer value less than 0.50 ?g/ml (FEU) has a negative predicative value of 96 to 100% (95% CI)and 97 to 100% (95% CI) as an aid in the diagnosis of deep vein thrombosis (DVT) and pulmonary embolism when there is low or moderate pretest probability of PE or DVT. D-Dimer values are expressed in initial fibrinogen equivalent units (FEU)" The assay results should be used with other information, including the clinical context, in forming a diagnosis. Lab Interpretation Abnormal (test code = 27501-5) [facility] GLUCOSE (AUTOMATED)2020-04-24 00:33:32 Test Item Value Reference Range Interpretation Comments POCT GLU (test code = 8995592314) 294 mg/dL 70-110 H Lab Interpretation (test code = Abnormal 02493-8) [facility] GLUCOSE (AUTOMATED)2020-04-23 22:00:10 Test Item Value Reference Range Interpretation Comments POCT GLU (test code = 9367393051) 278 mg/dL 70-110 H Lab Interpretation (test code = Abnormal 44309-6) [facility]AL[facility]IN[facility] 20:20:04 Test Item Value Reference Range Interpretation Comments Procalcitonin (test 0.08 ng/mL <0.07 H code = 5346407089) BRITTANY (test code = BRITTANY) INTERPRETATION OF PROCALCITONIN RESULTS IN ADULTS >= 18 YEARS OF AGE Initiation and discontinuation of antibiotics on patients with suspected or confirmed Lower Respiratory Tract Infection in Adults >= 18 years of age. + +-------- --------+ + -----+|Procalcitonin |Interpretation ?|Antibiotic ? ? |Considerations ? |ng/mL ? | ?|recommendation | ? + +-------- --------+ + -----+| <0.1 ? | Bacterial ? ? ?| Strongly ? ? ?| ? | ?| infection very | discouraged ? | Overruling: ? | ?| unlikely ? ? ? | ? | ? Clinically unstable ? ? ? + +-------- --------+ + ? High risk for adverse ? ? | <0.25 ?| Bacterial ? ? ?| Discouraged ? | ? outcome ? | ?| infection ? ? ?| ? | ? SEE IMPORTANT NOTE ?| ?| unlikely ? ? ? | ? | ? + +-------- --------+ + -----+| >=0.25 ? ? ? | Bacterial ? ? ?| Encouraged ? ?| ? | ?| infection ? ? ?| ? | ? | ?| likely ? | ? | Consider treatment failure ?+ +------- ---------+ -+ if levels does not decrease | >0.5 ? | Bacterial ? ? ?| Strongly ? ? ?| appropriately ? | ?| infection very | encouraged ? ?| ? | ?| likely ? | ? | ? + +-------- --------+ + -----+ Discontinuation of antibiotics in high-acuity patients with suspected or confirmed sepsis in Adults >= 18 years of age. + +-------- --------+ + -----+|Procalcitonin |Interpretation ?|Antibiotic ? ? |Considerations ? |ng/mL ? | ?|recommendation | ? + +-------- --------+ + -----+| <0.25 ?| Bacterial ? ? ?| Strongly ? ? ?| ? | ?| infection very | discouraged ? | Overruling: ? | ?| unlikely ? ? ? | ? | ? Clinically unstable ? ? ? + +-------- --------+ + ? High risk for adverse ? ? | <0.5 or drop | Bacterial ? ? ?| Discouraged ? | ? outcome ? | >80% from ? ?| infection ? ? ?| ? | ? SEE IMPORTANT NOTE ?| highest PCT ?| unlikely ? ? ? | ? | ? | level ?| ?| ? | ? + +-------- --------+ + -----+| >=0.5 ?| Bacterial ? ? ?| Encouraged ? ?| ? | ?| infection ? ? ?| ? | ? | ?| likely ? | ? | Consider treatment failure ?+ +------- ---------+ -+ if levels does not decrease | >1.0 ? | Bacterial ? ? ?| Strongly ? ? ?| appropriately ? | ?| infection very | encouraged ? ?| ? | ?| likely ? | ? | ? + +-------- --------+ + -----+ Percentage of drop of Procalcitonin calculation for Discontinuation of antibiotics in high-acuity patients with suspected or confirmed sepsis in Adults >= 18 years of age. ? Procalcitonin highest{}-Procalcitonin current{}Delta Procalcitonin = x100% ? Procalcitonin current {} IMPORTANT NOTE: Procalcitonin may be elevated without bacterial infection by physiologic stress related to trauma, morataya, chronic dialysis, metastatic cancer, surgery in the past seven days, malaria, some fungal infections, and some forms of vasculitis. The interpretation algorithm may not apply to patients with immunosuppression (equivalent of >10 mg of prednisone daily), HIV with CD4 cell count < 350 cells/mm3, active malignancy on systemic chemotherapy, solid organ transplant or hematopoietic stem cell transplantation, or hospital acquired pneumonia. Additionally, some clinical trials of procalcitonin have excluded patients with shock requiring vasopressor use, acute respiratory failure requiring mechanical ventilation, or those with known lung abscess/empyema. For further information please refer to:[email or web address] Lab Interpretation Abnormal (test code = 01071-6) [facility] METABOLIC PANEL (NA, K, CL, CO2, GLUCOSE, BUN, CREATININE, CA)2020-04-23 20:04:24 Test Item Value Reference Range Interpretation Comments NA (test code = 135 mmol/L 135-145 7135273202) K (test code = 3.6 mmol/L 3.5-5.0 4494753724) CL (test code = 95 mmol/L 98-108 L 2743976628) CO2 TOTAL (test code = 35 mmol/L 23-31 H 2157269714) AGAP (test code = 2-16 5204501286) BUN (test code = 18 mg/dL 7-23 4689764975) GLUCOSE (test code = 261 mg/dL 70-110 H 4912992710) CREATININE (test code = 0.64 mg/dL 0.50-1.04 3510288758) CALCIUM (test code = 7.6 mg/dL 8.6-10.6 L 0283779803) eGFR Calculation mL/min/1.73m2 (Non-) (test code = 1769882394) eGFR Calculation mL/min/1.73m2 () (test code = 8249828178) BRITTANY (test code = BRITTANY) Association of Glomerular Filtration Rate (GFR) and Staging of Kidney Disease* + --+ --+ ------+| GFR (mL/min/1.73 m2) ?| With Kidney Damage ?| ?Without Kidney Damage+ --------+ --------+ +| ?>90 ?| ?Stage one ?| ? Normal ?+ ---+ ---+ -------+| ?60-89 ?| ?Stage two ?| ? Decreased GFR ? + --+ --+ ------+| ?30-59 ?| ?Stage three ?| ? Stage three ? + --+ --+ ------+| ?15-29 ?| ?Stage four ? | ? Stage four ?+ ---+ ---+ -------+| ?<15 (or dialysis) ? ?| ?Stage five ? | ? Stage five ?+ ---+ ---+ -------+ *Each stage assumes the associated GFR level has been in effect for at least three months. ?Stages 1 to 5, with or without kidney disease, indicate chronic kidney disease. Notes: Determination of stages one and two (with eGFR >59mL/min/1.73 m2) requires estimation of kidney damage for at least three months as defined by structural or functional abnormalities of the kidney, manifested by either:Pathological abnormalities or Markers of kidney damage (including abnormalities in the composition of the blood or urine or abnormalities in imaging tests). Lab Interpretation Abnormal (test code = 80554-6) [facility] 16:53:48 Test Item Value Reference Range Interpretation Comments POCT GLU (test code = 9881602656) 267 mg/dL 70-110 H Lab Interpretation (test code = Abnormal 99783-4) [facility] 14:21:53 Test Item Value Reference Range Interpretation Comments MAGNESIUM (test code = 7482095932) 1.6 mg/dL 1.7-2.4 L Lab Interpretation (test code = Abnormal 02313-8) [facility] [id number] 14:09:51EXAM: XR CHEST 1 VW HISTORY: F/u possible consolidation COMPARISON: None. FINDINGS: Since the most recent previous chest image was obtained hilar vascularcongestion has developed with early changes ofinterstitial pulmonary edemaand both lungs, more marked on the right. The heart is slightly enlarged. ? [facility], Radiant Results Inft User - 04/23/2020 9:11 AM CDTEXAM: XR CHEST 1 VWHISTORY: F/u poss ible consolidation COMPARISON: None.FINDINGS:Since the most recent previous chest image was obtainedhilar vascularcongestion has developed with early changes of interstitial pulmonary edemaand both lungs, more marked on the right. The heart is slightly enlarged.[facility]2020-04-23 14:05:00 Test Item Value Reference Range Interpretation Comments POCT GLU (test code = 5576386825) 264 mg/dL 70-110 H Lab Interpretation (test code = Abnormal 83802-9) [facility] WITH [id number] 12:31:28 Test Item Value Reference Range Interpretation Comments WBC (test code = See_Comment [Automated 9068-2) message] The sy stem which generated this result transmitted reference range : 4.30 - 11.10 10*3/?L. The reference range was not used to interpret this result as normal/abnormal . RBC (test code = See_Comment [Automated 394-8) message] The sy stem which generated this result transmitted reference range : 3.93 - 5.25 10*6/?L. The reference range was not used to interpret this result as normal/abnormal . HGB (test code = 13.0 g/dL 11.6-15.0 718-7) HCT (test code = 40.7 % 35.7-45.2 4544-3) MCV (test code = 83.7 fL 80.6-95.5 787-2) MCH (test code = 26.7 pg 25.9-32.8 785-6) MCHC (test code = 31.9 g/dL 31.6-35.1 786-4) RDW-SD (test code = 47.5 fL 39.0-49.9 08390-0) RDW-CV (test code = 15.6 % 12.0-15.5 H 788-0) PLT (test code = See_Comment [Automated 777-3) message] The sy stem which generated this result transmitted reference range : 166 - 358 10*3/ ?L. The reference r milad was not used to interpret this result as normal/abnormal . MPV (test code = 11.9 fL 9.5-12.9 62115-9) IPF % (test code = 5.7 % 1.3-7.7 Platelet count 6203823332) measured by fluorescence method. NRBC/100 WBC (test See_Comment [Automat ed code = 9495331883) message] The system which generated this result transmitted reference range : 0.0 - 10.0 /100 WBCs. The refer ence range was not u sed to interpret th is result as normal/abnormal . NRBC x10^3 (test code <0.01 See_Comment [Auto mated = 2244133960) message] The s ystem which generated this result transmitted reference range : 10*3/?L. The reference range was not used to interpret this result as normal/abnormal . GRAN MAT (NEUT) % 64.8 % (test code = 770-8) IMM GRAN % (test code 0.60 % = 7115007177) LYMPH % (test code = 21.8 % 736-9) MONO % (test code = 9.8 % 5905-5) EOS % (test code = 2.8 % 713-8) BASO % (test code = 0.2 % 706-2) GRAN MAT x10^3(ANC) 3.45 10*3/uL 1.88-7.09 (test code = 5960701727) IMM GRAN x10^3 (test 0.03 10*3/uL 0.00-0.06 code = 4572182145) LYMPH x10^3 (test code 1.16 10*3/uL 1.32-3.29 L = 731-0) MONO x10^3 (test code 0.52 10*3/uL 0.33-0.92 = 742-7) EOS x10^3 (test code = 0.15 10*3/uL 0.03-0.39 711-2) BASO x10^3 (test code <0.03 0.01-0.07 = 704-7) Lab Interpretation Abnormal (test code = 84274-6) [facility] METABOLIC PANEL (NA, K, CL, CO2, GLUCOSE, BUN, CREATININE, CA)2020-04-23 02:50:12 Test Item Value Reference Range Interpretation Comments NA (test code = 133 mmol/L 135-145 L 8342579262) K (test code = 3.5 mmol/L 3.5-5.0 6988558240) CL (test code = 92 mmol/L 98-108 L 6262381862) CO2 TOTAL (test code = 37 mmol/L 23-31 H 6844962591) AGAP (test code = 2-16 6464499231) BUN (test code = 16 mg/dL 7-23 1052937198) GLUCOSE (test code = 265 mg/dL 70-110 H 8050229897) CREATININE (test code = 0.74 mg/dL 0.50-1.04 4320797580) CALCIUM (test code = 7.3 mg/dL 8.6-10.6 L 5008333273) eGFR Calculation mL/min/1.73m2 (Non-) (test code = 9237953680) eGFR Calculation mL/min/1.73m2 () (test code = 4746706657) BRITTANY (test code = BRITTANY) Association of Glomerular Filtration Rate (GFR) and Staging of Kidney Disease* + --+ --+ ------+| GFR (mL/min/1.73 m2) ?| With Kidney Damage ?| ?Without Kidney Damage+ --------+ --------+ +| ?>90 ?| ?Stage one ?| ? Normal ?+ ---+ ---+ -------+| ?60-89 ?| ?Stage two ?| ? Decreased GFR ? + --+ --+ ------+| ?30-59 ?| ?Stage three ?| ? Stage three ? + --+ --+ ------+| ?15-29 ?| ?Stage four ? | ? Stage four ?+ ---+ ---+ -------+| ?<15 (or dialysis) ? ?| ?Stage five ? | ? Stage five ?+ ---+ ---+ -------+ *Each stage assumes the associated GFR level has been in effect for at least three months. ?Stages 1 to 5, with or without kidney disease, indicate chronic kidney disease. Notes: Determination of stages one and two (with eGFR >59mL/min/1.73 m2) requires estimation of kidney damage for at least three months as defined by structural or functional abnormalities of the kidney, manifested by either:Pathological abnormalities or Markers of kidney damage (including abnormalities in the composition of the blood or urine or abnormalities in imaging tests). Lab Interpretation Abnormal (test code = 15367-1) [facility]2020-04-23 00:41:30 Test Item Value Reference Range Interpretation Comments POCT GLU (test code = 0981614761) 246 mg/dL 70-110 H Lab Interpretation (test code = Abnormal 66906-3) [facility] (NA, K, CL, CO2, GLUCOSE, BUN, CREATININE, CA)2020-04-23 00:35:33 Test Item Value Reference Range Interpretation Comments NA (test code = 147 mmol/L 135-145 H 5162425499) K (test code = 2.0 mmol/L 3.5-5.0 LL 9327548290) CL (test code = 110 mmol/L 98-108 H 8958342619) CO2 TOTAL (test code = 24 mmol/L 23-31 5564525152) AGAP (test code = 2-16 5596587914) BUN (test code = 10 mg/dL 7-23 9719325864) GLUCOSE (test code = 124 mg/dL 70-110 H 6189025397) CREATININE (test code = 0.41 mg/dL 0.50-1.04 L 0496483416) CALCIUM (test code = 4.1 mg/dL 8.6-10.6 LL 2276690860) eGFR Calculation mL/min/1.73m2 (Non-) (test code = 9840674254) eGFR Calculation mL/min/1.73m2 () (test code = 6007099118) BRITTANY (test code = BRITTANY) Association of Glomerular Filtration Rate (GFR) and Staging of Kidney Disease* + --+ --+ ------+| GFR (mL/min/1.73 m2) ?| With Kidney Damage ?| ?Without Kidney Damage+ --------+ --------+ +| ?>90 ?| ?Stage one ?| ? Normal ?+ ---+ ---+ -------+| ?60-89 ?| ?Stage two ?| ? Decreased GFR ? + --+ --+ ------+| ?30-59 ?| ?Stage three ?| ? Stage three ? + --+ --+ ------+| ?15-29 ?| ?Stage four ? | ? Stage four ?+ ---+ ---+ -------+| ?<15 (or dialysis) ? ?| ?Stage five ? | ? Stage five ?+ ---+ ---+ -------+ *Each stage assumes the associated GFR level has been in effect for at least three months. ?Stages 1 to 5, with or without kidney disease, indicate chronic kidney disease. Notes: Determination of stages one and two (with eGFR >59mL/min/1.73 m2) requires estimation of kidney damage for at least three months as defined by structural or functional abnormalities of the kidney, manifested by either:Pathological abnormalities or Markers of kidney damage (including abnormalities in the composition of the blood or urine or abnormalities in imaging tests). Lab Interpretation Abnormal (test code = 49225-0) [facility] GLUCOSE (AUTOMATED)2020-04-22 21:01:47 Test Item Value Reference Range Interpretation Comments POCT GLU (test code = 4601412514) 118 mg/dL 70-110 H Lab Interpretation (test code = Abnormal 26088-9) [facility] GLUCOSE (AUTOMATED)2020-04-22 17:52:42 Test Item Value Reference Range Interpretation Comments POCT GLU (test code = 8025508024) 115 mg/dL 70-110 H Lab Interpretation (test code = Abnormal 09098-9) [facility] GLUCOSE (AUTOMATED)2020-04-22 13:11:16 Test Item Value Reference Range Interpretation Comments POCT GLU (test code = 4678945613) 123 mg/dL 70-110 H Lab Interpretation (test code = Abnormal 06062-3) [facility]PHOS[facility]US2021-[facility] 12:21:05 Test Item Value Reference Range Interpretation Comments PHOSPHORUS (test code = 7220298432) 2.6 mg/dL 2.5-5.0 Lab Interpretation (test code = Normal 44104-6) [facility] CenterD-[id number] 09:55:46 Test Item Value Reference Interpretation Comments Range D-DIMER (test code = See_Comment H [Autom ated 8856002216) message] The system which generated this result transmitted reference range : <0.50 ?g/mL (FEU). The reference range was not used to interpret this result as normal/abnormal . BRITTANY (test code = This test may be BRITTANY) used in conjunction with a clinical pretest probability (PTP) assessment model to exclude venous thromboembolism (VTE) in patients suspected of deep venous thrombosis (DVT) and pulmonary embolism (PE) A D-Dimer value less than 0.50 ?g/ml (FEU) has a negative predicative value of 96 to 100% (95% CI)and 97 to 100% (95% CI) as an aid in the diagnosis of deep vein thrombosis (DVT) and pulmonary embolism when there is low or moderate pretest probability of PE or DVT. D-Dimer values are expressed in initial fibrinogen equivalent units (FEU)" The assay results should be used with other information, including the clinical context, in forming a diagnosis. Lab Interpretation Abnormal (test code = 03202-3) [facility]2020-04-22 09:49:27 Test Item Value Reference Range Interpretation Comments POCT GLU (test code = 2707636535) 97 mg/dL 70-110 Lab Interpretation (test code = Normal 66891-5) [facility] Center[facility]OL[facility] (NA, K, CL, CO2, GLUCOSE, BUN, CREATININE, CA)2020-04-22 09:35:51 Test Item Value Reference Range Interpretation Comments NA (test code = 133 mmol/L 135-145 L 4158740303) K (test code = 2.9 mmol/L 3.5-5.0 LL 5718447750) CL (test code = 92 mmol/L 98-108 L 0982068848) CO2 TOTAL (test code = 36 mmol/L 23-31 H 1893988171) AGAP (test code = 2-16 8431391244) BUN (test code = 17 mg/dL 7-23 0198401695) GLUCOSE (test code = 53 mg/dL 70-110 L 8576191383) CREATININE (test code = 0.69 mg/dL 0.50-1.04 4987767297) CALCIUM (test code = 7.7 mg/dL 8.6-10.6 L 0917187193) eGFR Calculation mL/min/1.73m2 (Non-) (test code = 3717666085) eGFR Calculation mL/min/1.73m2 () (test code = 6157445111) BRITTANY (test code = BRITTANY) Association of Glomerular Filtration Rate (GFR) and Staging of Kidney Disease* + --+ --+ ------+| GFR (mL/min/1.73 m2) ?| With Kidney Damage ?| ?Without Kidney Damage+ --------+ --------+ +| ?>90 ?| ?Stage one ?| ? Normal ?+ ---+ ---+ -------+| ?60-89 ?| ?Stage two ?| ? Decreased GFR ? + --+ --+ ------+| ?30-59 ?| ?Stage three ?| ? Stage three ? + --+ --+ ------+| ?15-29 ?| ?Stage four ? | ? Stage four ?+ ---+ ---+ -------+| ?<15 (or dialysis) ? ?| ?Stage five ? | ? Stage five ?+ ---+ ---+ -------+ *Each stage assumes the associated GFR level has been in effect for at least three months. ?Stages 1 to 5, with or without kidney disease, indicate chronic kidney disease. Notes: Determination of stages one and two (with eGFR >59mL/min/1.73 m2) requires estimation of kidney damage for at least three months as defined by structural or functional abnormalities of the kidney, manifested by either:Pathological abnormalities or Markers of kidney damage (including abnormalities in the composition of the blood or urine or abnormalities in imaging tests). Lab Interpretation Abnormal (test code = 35152-1) [facility] Center[facility]AT[facility]36[address] (ALB,T.PRO,BILI T,BU/BC,ALT,AST,ALK PHOS)2020-04-22 09:21:01 Test Item Value Reference Range Interpretation Comments TOTAL BILI (test code = 2713040463) 0.3 mg/dL 0.1-1.1 BILI UNCON (test code = 9780430467) 0.1 mg/dL 0.1-1.1 BILI CONJ (test code = 4861262170) 0.0 mg/dL 0.0-0.3 T PROTEIN (test code = 3440714356) 5.9 g/dL 6.3-8.2 L ALBUMIN (test code = 6274925818) 2.9 g/dL 3.5-5.0 L ALK PHOS (test code = 1268232135) 62 U/L 34-122 ALTv (test code = 1742-6) 12 U/L 5-35 AST(SGOT) (test code = 5966587240) 34 U/L 13-40 Lab Interpretation (test code = Abnormal 84770-2) [facility] WITH [id number] 08:47:00 Test Item Value Reference Range Interpretation Comments WBC (test code = See_Comment [Automated 5490-2) message] The sy stem which generated this result transmitted reference range : 4.30 - 11.10 10*3/?L. The reference range was not used to interpret this result as normal/abnormal . RBC (test code = See_Comment [Automated 319-8) message] The sy stem which generated this result transmitted reference range : 3.93 - 5.25 10*6/?L. The reference range was not used to interpret this result as normal/abnormal . HGB (test code = 11.4 g/dL 11.6-15.0 L 718-7) HCT (test code = 35.6 % 35.7-45.2 L 4544-3) MCV (test code = 84.6 fL 80.6-95.5 787-2) MCH (test code = 27.1 pg 25.9-32.8 785-6) MCHC (test code = 32.0 g/dL 31.6-35.1 786-4) RDW-SD (test code = 47.4 fL 39.0-49.9 36288-6) RDW-CV (test code = 15.2 % 12.0-15.5 788-0) PLT (test code = See_Comment [Automated 777-3) message] The sy stem which generated this result transmitted reference range : 166 - 358 10*3/ ?L. The reference r milad was not used to interpret this result as normal/abnormal . MPV (test code = 10.4 fL 9.5-12.9 78224-9) NRBC/100 WBC (test See_Comment [Automat ed code = 8102194287) message] The system which generated this result transmitted reference range : 0.0 - 10.0 /100 WBCs. The refer ence range was not u sed to interpret th is result as normal/abnormal . NRBC x10^3 (test code <0.01 See_Comment [Auto mated = 5289047408) message] The s ystem which generated this result transmitted reference range : 10*3/?L. The reference range was not used to interpret this result as normal/abnormal . GRAN MAT (NEUT) % 71.6 % (test code = 770-8) IMM GRAN % (test code 0.70 % = 0610635981) LYMPH % (test code = 18.5 % 736-9) MONO % (test code = 8.7 % 5905-5) EOS % (test code = 0.4 % 713-8) BASO % (test code = 0.1 % 706-2) GRAN MAT x10^3(ANC) 4.79 10*3/uL 1.88-7.09 (test code = 4374390317) IMM GRAN x10^3 (test 0.05 10*3/uL 0.00-0.06 code = 9377916197) LYMPH x10^3 (test code 1.24 10*3/uL 1.32-3.29 L = 731-0) MONO x10^3 (test code 0.58 10*3/uL 0.33-0.92 = 742-7) EOS x10^3 (test code = 0.03 10*3/uL 0.03-0.39 711-2) BASO x10^3 (test code <0.03 0.01-0.07 = 704-7) Lab Interpretation Abnormal (test code = 55690-8) [facility] GLUCOSE (AUTOMATED)2020-04-22 08:37:11 Test Item Value Reference Range Interpretation Comments POCT GLU (test code = 1488341801) 69 mg/dL 70-110 L Lab Interpretation (test code = Abnormal 17802-1) [facility] GLUCOSE (AUTOMATED)2020-04-22 06:11:52 Test Item Value Reference Range Interpretation Comments POCT GLU (test code = 3847793076) 87 mg/dL 70-110 Lab Interpretation (test code = Normal 12884-2) [facility] GLUCOSE (AUTOMATED)2020-04-22 02:54:55 Test Item Value Reference Range Interpretation Comments POCT GLU (test code = 7557448047) 143 mg/dL 70-110 H Lab Interpretation (test code = Abnormal 61616-9) [facility] GLUCOSE (AUTOMATED)2020-04-21 23:05:33 Test Item Value Reference Range Interpretation Comments POCT GLU (test code = 9274149064) 282 mg/dL 70-110 H Lab Interpretation (test code = Abnormal 56877-5) [facility] METABOLIC PANEL (NA, K, CL, CO2, GLUCOSE, BUN, CREATININE, CA)2020-04-21 20:45:19 Test Item Value Reference Range Interpretation Comments NA (test code = 129 mmol/L 135-145 L 5201282306) K (test code = 3.6 mmol/L 3.5-5.0 5712507047) CL (test code = 89 mmol/L 98-108 L 0138532518) CO2 TOTAL (test code = 37 mmol/L 23-31 H 2098474434) AGAP (test code = 2-16 4085952686) BUN (test code = 16 mg/dL 7-23 2961756927) GLUCOSE (test code = 299 mg/dL 70-110 H 1523942174) CREATININE (test code = 0.77 mg/dL 0.50-1.04 6042366163) CALCIUM (test code = 7.6 mg/dL 8.6-10.6 L 4370752340) eGFR Calculation mL/min/1.73m2 (Non-) (test code = 9887468123) eGFR Calculation mL/min/1.73m2 () (test code = 8992106207) BRITTANY (test code = BRITTANY) Association of Glomerular Filtration Rate (GFR) and Staging of Kidney Disease* + --+ --+ ------+| GFR (mL/min/1.73 m2) ?| With Kidney Damage ?| ?Without Kidney Damage+ --------+ --------+ +| ?>90 ?| ?Stage one ?| ? Normal ?+ ---+ ---+ -------+| ?60-89 ?| ?Stage two ?| ? Decreased GFR ? + --+ --+ ------+| ?30-59 ?| ?Stage three ?| ? Stage three ? + --+ --+ ------+| ?15-29 ?| ?Stage four ? | ? Stage four ?+ ---+ ---+ -------+| ?<15 (or dialysis) ? ?| ?Stage five ? | ? Stage five ?+ ---+ ---+ -------+ *Each stage assumes the associated GFR level has been in effect for at least three months. ?Stages 1 to 5, with or without kidney disease, indicate chronic kidney disease. Notes: Determination of stages one and two (with eGFR >59mL/min/1.73 m2) requires estimation of kidney damage for at least three months as defined by structural or functional abnormalities of the kidney, manifested by either:Pathological abnormalities or Markers of kidney damage (including abnormalities in the composition of the blood or urine or abnormalities in imaging tests). Lab Interpretation Abnormal (test code = 50062-9) [facility] CenterTALI [id number] 17:57:28 Test Item Value Reference Range Interpretation Comments TROPONIN I (test 0.037 ng/mL See_Comment H [Automated code = 8780701720) message] The system which generated this result transmitted reference range : <=0.034. The reference range was not used to interpret this result as normal/abnormal . BRITTANY (test code = Equal or Less than BRITTANY) 0.034 ng/ml---Normal ?Note: Cardiac troponin begins to rise 3-4 hours after the onset of ischemia. Repeat in 4-6 hours if the sample was drawn within 3-4 hours of the onset of the symptom and found normal. Between 0.035 and 0.120 ng/mL--- Borderline. Questionable myocardial injury or necrosis ? ?Note: Serial measurement may be necessary to confirm or exclude the diagnosis of myocardial injury or necrosis; Clinical correlation (symptoms, EKGs, imaging studies, and others) required; Repeat in 4-6 hours if clinically indicated. ? Equal or Higher than 0.121 ng/mL---Abnormal. Myocardial Injury or Necrosis Likely ? Biotin has been reported to cause a negative bias, interpret results relative to patient's use of biotin. ? Lab Interpretation Abnormal (test code = 58623-8) [facility] Center[facility]ACTIVE [id number] 17:56:42 Test Item Value Reference Range Interpretation Comments CRP (test code = 3234312316) 8.0 mg/dL <0.8 H Lab Interpretation (test code = Abnormal 29654-0) [facility] 17:45:49 Test Item Value Reference Range Interpretation Comments MAGNESIUM (test code = 1705584773) 2.1 mg/dL 1.7-2.4 Lab Interpretation (test code = Normal 35075-5) [facility] GLUCOSE (AUTOMATED)2020-04-21 17:40:02 Test Item Value Reference Range Interpretation Comments POCT GLU (test code = 7763792922) 375 mg/dL 70-110 H Lab Interpretation (test code = Abnormal 17527-6) [facility] GLUCOSE (AUTOMATED)2020-04-21 13:45:32 Test Item Value Reference Range Interpretation Comments POCT GLU (test code = 0806294072) 458 mg/dL 70-110 HH Lab Interpretation (test code = Abnormal 63425-2) [facility] GLUCOSE (AUTOMATED)2020-04-21 13:45:27 Test Item Value Reference Range Interpretation Comments POCT GLU (test code = 3492257561) 403 mg/dL 70-110 H Lab Interpretation (test code = Abnormal 78833-3) [facility] METABOLIC PANEL (NA, K, CL, CO2, GLUCOSE, BUN, CREATININE, CA)2020-04-21 10:55:38 Test Item Value Reference Range Interpretation Comments NA (test code = 130 mmol/L 135-145 L 8605089783) K (test code = 3.1 mmol/L 3.5-5.0 L 8720179372) CL (test code = 90 mmol/L 98-108 L 4154821277) CO2 TOTAL (test code = 36 mmol/L 23-31 H 8033686792) AGAP (test code = 2-16 0622472018) BUN (test code = 19 mg/dL 7-23 5959399112) GLUCOSE (test code = 381 mg/dL 70-110 H 6163651092) CREATININE (test code = 0.78 mg/dL 0.50-1.04 3662052294) CALCIUM (test code = 7.7 mg/dL 8.6-10.6 L 6227646809) eGFR Calculation mL/min/1.73m2 (Non-) (test code = 5448828039) eGFR Calculation mL/min/1.73m2 () (test code = 2005440907) BRITTANY (test code = BRITTANY) Association of Glomerular Filtration Rate (GFR) and Staging of Kidney Disease* + --+ --+ ------+| GFR (mL/min/1.73 m2) ?| With Kidney Damage ?| ?Without Kidney Damage+ --------+ --------+ +| ?>90 ?| ?Stage one ?| ? Normal ?+ ---+ ---+ -------+| ?60-89 ?| ?Stage two ?| ? Decreased GFR ? + --+ --+ ------+| ?30-59 ?| ?Stage three ?| ? Stage three ? + --+ --+ ------+| ?15-29 ?| ?Stage four ? | ? Stage four ?+ ---+ ---+ -------+| ?<15 (or dialysis) ? ?| ?Stage five ? | ? Stage five ?+ ---+ ---+ -------+ *Each stage assumes the associated GFR level has been in effect for at least three months. ?Stages 1 to 5, with or without kidney disease, indicate chronic kidney disease. Notes: Determination of stages one and two (with eGFR >59mL/min/1.73 m2) requires estimation of kidney damage for at least three months as defined by structural or functional abnormalities of the kidney, manifested by either:Pathological abnormalities or Markers of kidney damage (including abnormalities in the composition of the blood or urine or abnormalities in imaging tests). Lab Interpretation Abnormal (test code = 47335-3) [facility] WITH [id number] 10:40:19 Test Item Value Reference Range Interpretation Comments WBC (test code = See_Comment [Automated 3490-2) message] The sy stem which generated this result transmitted reference range : 4.30 - 11.10 10*3/?L. The reference range was not used to interpret this result as normal/abnormal . RBC (test code = See_Comment [Automated 789-8) message] The sy stem which generated this result transmitted reference range : 3.93 - 5.25 10*6/?L. The reference range was not used to interpret this result as normal/abnormal . HGB (test code = 12.3 g/dL 11.6-15.0 718-7) HCT (test code = 38.1 % 35.7-45.2 4544-3) MCV (test code = 84.1 fL 80.6-95.5 787-2) MCH (test code = 27.2 pg 25.9-32.8 785-6) MCHC (test code = 32.3 g/dL 31.6-35.1 786-4) RDW-SD (test code = 47.0 fL 39.0-49.9 02219-4) RDW-CV (test code = 15.2 % 12.0-15.5 788-0) PLT (test code = See_Comment [Automated 777-3) message] The sy stem which generated this result transmitted reference range : 166 - 358 10*3/ ?L. The reference r milad was not used to interpret this result as normal/abnormal . MPV (test code = 10.9 fL 9.5-12.9 78540-2) NRBC/100 WBC (test See_Comment [Automat ed code = 2348543882) message] The system which generated this result transmitted reference range : 0.0 - 10.0 /100 WBCs. The refer ence range was not u sed to interpret th is result as normal/abnormal . NRBC x10^3 (test code <0.01 See_Comment [Auto mated = 0797272651) message] The s ystem which generated this result transmitted reference range : 10*3/?L. The reference range was not used to interpret this result as normal/abnormal . GRAN MAT (NEUT) % 63.4 % (test code = 770-8) IMM GRAN % (test code 0.60 % = 2263403969) LYMPH % (test code = 25.7 % 736-9) MONO % (test code = 9.5 % 5905-5) EOS % (test code = 0.4 % 713-8) BASO % (test code = 0.4 % 706-2) GRAN MAT x10^3(ANC) 2.93 10*3/uL 1.88-7.09 (test code = 0619801897) IMM GRAN x10^3 (test 0.03 10*3/uL 0.00-0.06 code = 6781649625) LYMPH x10^3 (test code 1.19 10*3/uL 1.32-3.29 L = 731-0) MONO x10^3 (test code 0.44 10*3/uL 0.33-0.92 = 742-7) EOS x10^3 (test code = <0.03 0.03-0.39 L 711-2) BASO x10^3 (test code <0.03 0.01-0.07 = 704-7) Lab Interpretation Abnormal (test code = 24575-6) [facility]LE[facility] ANTIGEN [id number] 08:13:07 Test Item Value Reference Range Interpretation Comments Legionella Urinary Negative Negative Antigen (test code = 7411913184) BRITTANY (test code = BRITTANY) Negative for L. pneumophilia serogroup I antigen in urine suggesting no recent or current infection. Infection due to Legionella cannot be ruled out since other serogroups and species may cause disease. Furthermore, antigens may not be present in urine during early stage of infection, or the level of antigen present in urine may be below the detection limit of the test. Lab Interpretation (test Normal code = 41749-1) [facility] CenterPNEUMOCOCCAL [id number] 08:12:57 Test Item Value Reference Range Interpretation Comments S. pneumoniae antigen (test code = Negative Negative [id number]) Lab Interpretation (test code = Normal 68958-7) [facility] CenterPROCALCITONIN2021-03-13 06:13:34 Test Item Value Reference Range Interpretation Comments Procalcitonin (test 0.10 ng/mL <0.07 H code = 4962510377) BRITTANY (test code = BRITTANY) INTERPRETATION OF PROCALCITONIN RESULTS IN ADULTS >= 18 YEARS OF AGE Initiation and discontinuation of antibiotics on patients with suspected or confirmed Lower Respiratory Tract Infection in Adults >= 18 years of age. + +-------- --------+ + -----+|Procalcitonin |Interpretation ?|Antibiotic ? ? |Considerations ? |ng/mL ? | ?|recommendation | ? + +-------- --------+ + -----+| <0.1 ? | Bacterial ? ? ?| Strongly ? ? ?| ? | ?| infection very | discouraged ? | Overruling: ? | ?| unlikely ? ? ? | ? | ? Clinically unstable ? ? ? + +-------- --------+ + ? High risk for adverse ? ? | <0.25 ?| Bacterial ? ? ?| Discouraged ? | ? outcome ? | ?| infection ? ? ?| ? | ? SEE IMPORTANT NOTE ?| ?| unlikely ? ? ? | ? | ? + +-------- --------+ + -----+| >=0.25 ? ? ? | Bacterial ? ? ?| Encouraged ? ?| ? | ?| infection ? ? ?| ? | ? | ?| likely ? | ? | Consider treatment failure ?+ +------- ---------+ -+ if levels does not decrease | >0.5 ? | Bacterial ? ? ?| Strongly ? ? ?| appropriately ? | ?| infection very | encouraged ? ?| ? | ?| likely ? | ? | ? + +-------- --------+ + -----+ Discontinuation of antibiotics in high-acuity patients with suspected or confirmed sepsis in Adults >= 18 years of age. + +-------- --------+ + -----+|Procalcitonin |Interpretation ?|Antibiotic ? ? |Considerations ? |ng/mL ? | ?|recommendation | ? + +-------- --------+ + -----+| <0.25 ?| Bacterial ? ? ?| Strongly ? ? ?| ? | ?| infection very | discouraged ? | Overruling: ? | ?| unlikely ? ? ? | ? | ? Clinically unstable ? ? ? + +-------- --------+ + ? High risk for adverse ? ? | <0.5 or drop | Bacterial ? ? ?| Discouraged ? | ? outcome ? | >80% from ? ?| infection ? ? ?| ? | ? SEE IMPORTANT NOTE ?| highest PCT ?| unlikely ? ? ? | ? | ? | level ?| ?| ? | ? + +-------- --------+ + -----+| >=0.5 ?| Bacterial ? ? ?| Encouraged ? ?| ? | ?| infection ? ? ?| ? | ? | ?| likely ? | ? | Consider treatment failure ?+ +------- ---------+ -+ if levels does not decrease | >1.0 ? | Bacterial ? ? ?| Strongly ? ? ?| appropriately ? | ?| infection very | encouraged ? ?| ? | ?| likely ? | ? | ? + +-------- --------+ + -----+ Percentage of drop of Procalcitonin calculation for Discontinuation of antibiotics in high-acuity patients with suspected or confirmed sepsis in Adults >= 18 years of age. ? Procalcitonin highest{}-Procalcitonin current{}Delta Procalcitonin = x100% ? Procalcitonin current {} IMPORTANT NOTE: Procalcitonin may be elevated without bacterial infection by physiologic stress related to trauma, morataya, chronic dialysis, metastatic cancer, surgery in the past seven days, malaria, some fungal infections, and some forms of vasculitis. The interpretation algorithm may not apply to patients with immunosuppression (equivalent of >10 mg of prednisone daily), HIV with CD4 cell count < 350 cells/mm3, active malignancy on systemic chemotherapy, solid organ transplant or hematopoietic stem cell transplantation, or hospital acquired pneumonia. Additionally, some clinical trials of procalcitonin have excluded patients with shock requiring vasopressor use, acute respiratory failure requiring mechanical ventilation, or those with known lung abscess/empyema. For further information please refer to:[email or web address] Lab Interpretation Abnormal (test code = 15951-2) [facility] CenterAUGUSTBrando [id number] 05:46:01 Test Item Value Reference Range Interpretation Comments TROPONIN I (test 0.085 ng/mL See_Comment H [Automated code = 7770442891) message] The system which generated this result transmitted reference range : <=0.034. The reference range was not used to interpret this result as normal/abnormal . BRITTANY (test code = Equal or Less than BRITTANY) 0.034 ng/ml---Normal ?Note: Cardiac troponin begins to rise 3-4 hours after the onset of ischemia. Repeat in 4-6 hours if the sample was drawn within 3-4 hours of the onset of the symptom and found normal. Between 0.035 and 0.120 ng/mL--- Borderline. Questionable myocardial injury or necrosis ? ?Note: Serial measurement may be necessary to confirm or exclude the diagnosis of myocardial injury or necrosis; Clinical correlation (symptoms, EKGs, imaging studies, and others) required; Repeat in 4-6 hours if clinically indicated. ? Equal or Higher than 0.121 ng/mL---Abnormal. Myocardial Injury or Necrosis Likely ? Biotin has been reported to cause a negative bias, interpret results relative to patient's use of biotin. ? Lab Interpretation Abnormal (test code = 37029-9) [facility] CenterLIPID PANEL (75519)(TOTAL CHOLESTEROL, TRIGLYCERIDES, HDL)2020-04-21 05:41:38 Test Item Value Reference Range Interpretation Comments CHOL (test code = 114 mg/dL 120-200 L 3748406373) HDL (test code = 18 mg/dL >50 L 2038249202) HDLC RATIO (test code = See_Comment H [Au tomated message] 0980022215) The system [employer] generated this result transmit teri reference range : <=4.5. The refe rence range was not u sed to interpret th is result as normal/abnormal . TRIG (test code = 213 mg/dL 30-170 H 0416510407) LDL CHOL (test code = 53 mg/dL See_Comment [Auto mated message] 19005-4) The system [employer] generated this result transmit teri reference range : <=160. The refe rence range was not u sed to interpret th is result as normal/abnormal . VLDL (test code = 43 mg/dL 5-60 4147045656) Lab Interpretation (test Abnormal code = 67758-0) [facility] CenterLACTATE [id number] 05:29:00 Test Item Value Reference Range Interpretation Comments LDH (test code = 4939106534) 670 U/L 300-600 H Lab Interpretation (test code = Abnormal 40160-5) [facility] CenterFERRITIN [id number] 05:09:38 Test Item Value Reference Range Interpretation Comments FERRITIN (test code = 117.0 ng/mL 11.0-264.0 8144052872) BRITTANY (test code = BRITTANY) Biotin has been reported to cause a negative bias, interpret results relative to patient's use of biotin. Lab Interpretation (test Normal code = 10990-0) [facility] CenterD-[id number] 05:07:36 Test Item Value Reference Interpretation Comments Range D-DIMER (test code = See_Comment H [Autom ated 5977843080) message] The system which generated this result transmitted reference range : <0.50 ?g/mL (FEU). The reference range was not used to interpret this result as normal/abnormal . BRITTANY (test code = This test may be BRITTANY) used in conjunction with a clinical pretest probability (PTP) assessment model to exclude venous thromboembolism (VTE) in patients suspected of deep venous thrombosis (DVT) and pulmonary embolism (PE) A D-Dimer value less than 0.50 ?g/ml (FEU) has a negative predicative value of 96 to 100% (95% CI)and 97 to 100% (95% CI) as an aid in the diagnosis of deep vein thrombosis (DVT) and pulmonary embolism when there is low or moderate pretest probability of PE or DVT. D-Dimer values are expressed in initial fibrinogen equivalent units (FEU)" The assay results should be used with other information, including the clinical context, in forming a diagnosis. Lab Interpretation Abnormal (test code = 95848-9) [facility] CenterGLYCOSYLATED HEMOGLOBIN (A1C)2020-04-21 04:36:53 Test Item Value Reference Range Interpretation Comments HGB A1C (test code = 12.1 % 4.0-6.0 H 4548-4) BRITTANY (test code = BRITTANY) %A1C (NGSP) Interpretation (ADA)4.8-5.6 ? ? Normal or (Non-Diabetic Range)5.7-6.4 ? ? Increased Risk (Pre-Diabetic)>6.5 ?Diabetes Indicated Lab Interpretation Abnormal (test code = 34850-7) [facility] CenterUrinalysis2021-03-12 23:44:12 Test Item Value Reference Range Interpretation Comments APPEARANCE (test code = Clear Clear 1184062057) COLOR (test code = Yellow Yellow 1826349240) PH (test code = 4.8-8.0 5583368024) SP GRAVITY (test code = 1.003-1.030 0731298736) GLU U QUAL (test code = 500 mg/dL Normal A 5902550586) BLOOD (test code = Negative Negative 1187319062) KETONES (test code = 5 mg/dL Negative A 9388218814) PROTEIN (test code = Negative Negative 2887-8) UROBILIN (test code = Normal Normal 1987533233) BILIRUBIN (test code = Negative Negative 5415837208) NITRITE (test code = Negative Negative 4187943676) LEUK JEAN (test code = 25/uL Negative A 5624987246) RBC/HPF (test code = See_Comment [Autom ated message] 6043270609) The system [employer] generated this result transmit teri reference range : 0 - 3 HPF. The refe rence range was not u sed to interpret th is result as normal/abnormal . WBC/HPF (test code = See_Comment [Autom ated message] 2385668189) The system [employer] generated this result transmit teri reference range : 0 - 5 HPF. The refe rence range was not u sed to interpret th is result as normal/abnormal . BACTERIA (test code = Negative Negative 4718489237) SQ EPITH (test code = HPF 2245900736) Lab Interpretation (test Abnormal code = 16351-2) [facility] 1 [id number] 22:57:16 Increased density in the left lung base which may be on the basis ofatelectasis or early inflammatory process. If indicated qtghx-gkrwbjxadl-zw could be performed. Otherwise no definite new acute process. Preliminary Report Dictated by Resident: Jada Childers MD., have reviewed this study and agree with theabove report.EXAM:XR CHEST 1 VW HISTORY: 79 years-old Female; Indication for study: SOB COMPARISON: Chest radiograph dating back to 05/31/2018 FINDINGS: Lungs/pleura: the chin overlies the thoracic inlet which limits evaluationThe lung volumes are within normal limits minimal progression of patchyopacities in the left lung base.. Fullness of the right hilum is unchanged since 12/17/2018, probably prominent prominent pulmonary vessels. Nodefinite new focal consolidation.There is no pleural effusion orpneumothorax. Heart/Mediastinum: The cardiomediastinal silhouette is normal. ?Prominentleft pericardial fat pad, unchanged. Unfolded descending thoracic aorta.Atherosclero tic calcifications of the arch Bones and soft tissues: No acute abnormality detected. [facility], Radiant Results Inft User - 04/20/2020 5:18 PM CSTEXAM:XR CHEST 1 VWHISTORY: 79 years-old Female; Indicationfor study: SOB COMPARISON: Chest radiograph dating back to 05/31/2018FINDINGS:Lungs/pleura: the chin overlies the thoracic inlet which limits evaluationThe lung volumes are within normal limits minimal progression of patchyopacities in the left lung base.. Fullness of the right hilum is unchangedsince 12/17/2018, probably prominent prominent pulmonary vessels. Nodefinite new focal consolidation. There is no pleural effusion orpneumothorax.Heart/Mediastinum: The cardiomediastinal silhouette is normal. Prominentleft pericardial fat pad, unchanged. Unfolded descending thoracic aorta.Atherosclerotic calcifications of the archBones and soft tissues: No acute abnormality detected.IMPRESSIONIncreased density in the left lung base which may be on the basis ofatelectasis or early inflammatory process. If indicated wxbmg-cdgcekhnun-sn could be performed. Otherwise no definite new acute process. PreliminaryReport Dictated by Resident: Jada Medellin MD., have reviewed this study and agree with theabove report.[facility] CenterTali [id number] 22:30:38 Test Item Value Reference Range Interpretation Comments TROPONIN I (test 0.109 ng/mL See_Comment H [Automated code = 3811607297) message] The system which generated this result transmitted reference range : <=0.034. The reference range was not used to interpret this result as normal/abnormal . BRITTANY (test code = Equal or Less than BRITTANY) 0.034 ng/ml---Normal ?Note: Cardiac troponin begins to rise 3-4 hours after the onset of ischemia. Repeat in 4-6 hours if the sample was drawn within 3-4 hours of the onset of the symptom and found normal. Between 0.035 and 0.120 ng/mL--- Borderline. Questionable myocardial injury or necrosis ? ?Note: Serial measurement may be necessary to confirm or exclude the diagnosis of myocardial injury or necrosis; Clinical correlation (symptoms, EKGs, imaging studies, and others) required; Repeat in 4-6 hours if clinically indicated. ? Equal or Higher than 0.121 ng/mL---Abnormal. Myocardial Injury or Necrosis Likely ? Biotin has been reported to cause a negative bias, interpret results relative to patient's use of biotin. ? Lab Interpretation Abnormal (test code = 86416-2) [facility] CenterN-TERMINAL [id number] 22:27:19 Test Item Value Reference Range Interpretation Comments NT-proBNP (test code 413 pg/mL See_Comment [Autom ated = 1208640726) message] The system which generated this result transmitted reference range : <=450. The reference range was not used to interpret this result as normal/abnormal . BRITTANY (test code = BRITTANY) Biotin has been reported to cause a negative bias, interpret results relative to patient's use of biotin. Lab Interpretation Normal (test code = 80646-8) [facility] CenterCOVID-19 (ID NOW RAPID TESTING)2020-04-20 22:25:37 Test Item Value Reference Range Interpretation Comments SARS-CoV-2 Rapid ID NOW Positive Not Detected A (test code = 70714-4) BRITTANY (test code = BRITTANY) ID NOW COVID-19 Assay is an isothermal nucleic acid amplification test intended for the qualitative detection of nucleic acid from SARS-CoV-2 viral RNA in nasopharyngeal (SUPPLY CHAIN PROCUREMENT MANAGER) specimens. It is used under Emergency Use Authorization (EUA) by FDA. The limit of detection (LOD) of the assay is 125 Genome Equivalents/mL. A positive result is indicative of the presence of SARS-CoV-2 RNA. ?Clinical correlation with patient history and other diagnostic information is necessary to determine patient infection status. A negative (Not Detected) result does not preclude SARS-CoV-2 infection. In patients with clinical symptoms and other tests that are consistent with SARS-CoV-2 infection, negative results should be treated as presumptive negative and a new specimen should be tested with alternative PCR molecular test. Invalid: Please collect a new specimen for repeat patient testing if clinically indicated. Lab Interpretation Abnormal (test code = 22709-0) [facility] CenterBasi Metabolic Panel (NA, K, CL, CO2, GLUCOSE, BUN, CREATININE, CA)2020-04-20 22:23:05 Test Item Value Reference Range Interpretation Comments NA (test code = 126 mmol/L 135-145 L 7507063163) K (test code = 3.6 mmol/L 3.5-5.0 8183581882) CL (test code = 85 mmol/L 98-108 L 6588204756) CO2 TOTAL (test code = 30 mmol/L 23-31 9521378628) AGAP (test code = 2-16 7553069415) BUN (test code = 19 mg/dL 7-23 5604620670) GLUCOSE (test code = 458 mg/dL 70-110 HH 9165209129) CREATININE (test code = 0.77 mg/dL 0.50-1.04 7987012109) CALCIUM (test code = 7.8 mg/dL 8.6-10.6 L 8855402457) eGFR Calculation mL/min/1.73m2 (Non-) (test code = 3670819716) eGFR Calculation mL/min/1.73m2 () (test code = 0694269753) BRITTANY (test code = BRITTANY) Association of Glomerular Filtration Rate (GFR) and Staging of Kidney Disease* + --+ --+ ------+| GFR (mL/min/1.73 m2) ?| With Kidney Damage ?| ?Without Kidney Damage+ --------+ --------+ +| ?>90 ?| ?Stage one ?| ? Normal ?+ ---+ ---+ -------+| ?60-89 ?| ?Stage two ?| ? Decreased GFR ? + --+ --+ ------+| ?30-59 ?| ?Stage three ?| ? Stage three ? + --+ --+ ------+| ?15-29 ?| ?Stage four ? | ? Stage four ?+ ---+ ---+ -------+| ?<15 (or dialysis) ? ?| ?Stage five ? | ? Stage five ?+ ---+ ---+ -------+ *Each stage assumes the associated GFR level has been in effect for at least three months. ?Stages 1 to 5, with or without kidney disease, indicate chronic kidney disease. Notes: Determination of stages one and two (with eGFR >59mL/min/1.73 m2) requires estimation of kidney damage for at least three months as defined by structural or functional abnormalities of the kidney, manifested by either:Pathological abnormalities or Markers of kidney damage (including abnormalities in the composition of the blood or urine or abnormalities in imaging tests). Lab Interpretation Abnormal (test code = 77139-1) [facility] CenterHepatic Function Panel (ALB, T.PRO, BILI T, BU/BC, ALT, AST, ALK PHOS)2020-04-20 22:18:56 Test Item Value Reference Range Interpretation Comments TOTAL BILI (test code = 4104557601) 0.7 mg/dL 0.1-1.1 BILI UNCON (test code = 0712943404) 0.5 mg/dL 0.1-1.1 BILI CONJ (test code = 7646507578) 0.0 mg/dL 0.0-0.3 T PROTEIN (test code = 2719392448) 6.9 g/dL 6.3-8.2 ALBUMIN (test code = 2234381802) 3.8 g/dL 3.5-5.0 ALK PHOS (test code = 3362736677) 102 U/L 34-122 ALTv (test code = 1742-6) 13 U/L 5-35 AST(SGOT) (test code = 3919608385) 27 U/L 13-40 Lab Interpretation (test code = Normal 15610-8) [facility] with [id number] 22:18:36 Test Item Value Reference Range Interpretation Comments WBC (test code = See_Comment [Automated 4390-2) message] The sy stem which generated this result transmitted reference range : 4.30 - 11.10 10*3/?L. The reference range was not used to interpret this result as normal/abnormal . RBC (test code = See_Comment [Automated 209-8) message] The sy stem which generated this result transmitted reference range : 3.93 - 5.25 10*6/?L. The reference range was not used to interpret this result as normal/abnormal . HGB (test code = 12.8 g/dL 11.6-15.0 718-7) HCT (test code = 39.5 % 35.7-45.2 4544-3) MCV (test code = 82.6 fL 80.6-95.5 787-2) MCH (test code = 26.8 pg 25.9-32.8 785-6) MCHC (test code = 32.4 g/dL 31.6-35.1 786-4) RDW-SD (test code = 46.9 fL 39.0-49.9 82101-1) RDW-CV (test code = 15.3 % 12.0-15.5 788-0) PLT (test code = See_Comment [Automated 777-3) message] The sy stem which generated this result transmitted reference range : 166 - 358 10*3/ ?L. The reference r milad was not used to interpret this result as normal/abnormal . MPV (test code = 10.8 fL 9.5-12.9 87831-2) NRBC/100 WBC (test See_Comment [Automat ed code = 0798137001) message] The system which generated this result transmitted reference range : 0.0 - 10.0 /100 WBCs. The refer ence range was not u sed to interpret th is result as normal/abnormal . NRBC x10^3 (test code <0.01 See_Comment [Auto mated = 7210326924) message] The s ystem which generated this result transmitted reference range : 10*3/?L. The reference range was not used to interpret this result as normal/abnormal . GRAN MAT (NEUT) % 68.7 % (test code = 770-8) IMM GRAN % (test code 0.80 % = 9377351801) LYMPH % (test code = 18.5 % 736-9) MONO % (test code = 11.6 % 5905-5) EOS % (test code = 0.0 % 713-8) BASO % (test code = 0.4 % 706-2) GRAN MAT x10^3(ANC) 3.50 10*3/uL 1.88-7.09 (test code = 9808512149) IMM GRAN x10^3 (test 0.04 10*3/uL 0.00-0.06 code = 6803144363) LYMPH x10^3 (test code 0.94 10*3/uL 1.32-3.29 L = 731-0) MONO x10^3 (test code 0.59 10*3/uL 0.33-0.92 = 742-7) EOS x10^3 (test code = <0.03 0.03-0.39 L 711-2) BASO x10^3 (test code <0.03 0.01-0.07 = 704-7) Lab Interpretation Abnormal (test code = 27621-3) [facility] CenterProthrombin Time (PT) / [id number] 22:18:15 Test Item Value Reference Range Interpretation Comments PROTIME PATIENT (test See_Comment [Auto mated message] code = 5964-2) The system [employer] generated this result transmitted ref erence range: 12.0 - 1 4.7 Seconds. The re ference range was not u sed to interpret this result as normal/abnor mal. INR (test code = 6301-6) Nor mal INR <1.1; Warfarin Therap eutic range 2.0 to 3. 0 or 2.5 to 3.5, dep ending upon the indica tions. Lab Interpretation (test Normal code = 06085-3) [facility] CenterCOVID-19 (ID NOW RAPID TESTING)2020-03-06 00:50:00 Test Item Value Reference Range Interpretation Comments SARS-CoV-2 Rapid ID NOW Not Detected Not Detected (test code = 36494-8) BRITTANY (test code = BRITTANY) ID NOW COVID-19 Assay is an isothermal nucleic acid amplification test intended for the qualitative detection of nucleic acid from SARS-CoV-2 viral RNA in nasopharyngeal (SUPPLY CHAIN PROCUREMENT MANAGER) specimens. It is used under Emergency Use Authorization (EUA) by FDA. The limit of detection (LOD) of the assay is 125 Genome Equivalents/mL. A positive result is indicative of the presence of SARS-CoV-2 RNA. ?Clinical correlation with patient history and other diagnostic information is necessary to determine patient infection status. A negative (Not Detected) result does not preclude SARS-CoV-2 infection. In patients with clinical symptoms and other tests that are consistent with SARS-CoV-2 infection, negative results should be treated as presumptive negative and a new specimen should be tested with alternative PCR molecular test. Invalid: Please collect a new specimen for repeat patient testing if clinically indicated. Lab Interpretation Normal (test code = 11247-2) [facility] CenterPOCT GLUCOSE(AGE >30DAYS)2020-03-06 00:26:00 Test Item Value Reference Range Interpretation Comments POCT Glu (age>30days) (test code = 382 mg/dL 70-110 A 3342) Lab Interpretation (test code = Abnormal 81740-1) [facility] CenterXR ABDOMEN ACUTE [id number] 23:34:49 1. The multilobar pulmonary opacities can be seen with edema versuspneumonia.2. Mild constipation.3. Moderate right hip osteoarthritis. RL: 8228, for this shift, I can be reached at [phone]. Ordering Physician: Avery Suarez History:Shortness of breath. Constipation. Comparison Study: None. Technique: PA chest x-ray. Supine and upright views of the abdomen. Findings: Lungs: Faint ground glass opacities involve both the upper and lower lobes.No effusions or signs of pneumothorax.Mediastinal silhouettes: Cardiac and mediastinal silhouettes areunremarkable. Bowel gas pattern: No dilated bowel loops. Stool is seen through out thecolon.Free air: None.Renal silhouettes: Unremarkable.Bones and soft tissues: A 1.3 cm coarse calcification involves the rightbreast. Superior right hip joint space narrowing with osteophytes involvingthe femoral head. [facility], Radiant Results Inft User - 03/05/2020 5:36 PM CSTOrdering Physician: Avery Menaistory: Shortness of breath. Constipation.Comparison Study: None.Technique: PA chest x-ray. Supine and upright views of the abdomen.Findings: Lungs: Faint ground glass opacities involve both the upper and lower lobes.No effusions or signs of pneumothorax.Mediastinal silhouettes: Cardiac and mediastinal silhouettes areunremarkable.Bowel gas pattern: No dilated bowel loops. Stool is seen through out thecolon.Free air: None.Renal silhouettes: Unremarkable.Bones and soft tissues: A 1.3 cm coarse calcification involves the rightbreast. Superior right hip joint space narrowing with osteophytes involvingthe femoral head.IMPRESSION1. The multilobar pulmonary opacities can be seen with edema versuspneumonia.2. Mild constipation.3. Moderate right hip osteoarthritis.RL: 8228, for this shift, I can be reached at [phone]. [facility] CenterTRCONTINUECARE HOSPITALRICKIN [id number] 22:49:00 Test Item Value Reference Range Interpretation Comments TROPONIN I (test <0.012 See_Comment [Automated code = 5640648305) message] The system which generated this result transmitted reference range : <=0.034 ng/mL. The reference range was not used to interpr et this result as normal/abnormal . BRITTANY (test code = Equal or Less than BRITTANY) 0.034 ng/ml---Normal ?Note: Cardiac troponin begins to rise 3-4 hours after the onset of ischemia. Repeat in 4-6 hours if the sample was drawn within 3-4 hours of the onset of the symptom and found normal. Between 0.035 and 0.120 ng/mL--- Borderline. Questionable myocardial injury or necrosis ? ?Note: Serial measurement may be necessary to confirm or exclude the diagnosis of myocardial injury or necrosis; Clinical correlation (symptoms, EKGs, imaging studies, and others) required; Repeat in 4-6 hours if clinically indicated. ? Equal or Higher than 0.121 ng/mL---Abnormal. Myocardial Injury or Necrosis Likely ? Biotin has been reported to cause a negative bias, interpret results relative to patient's use of biotin. ? Lab Interpretation Normal (test code = 00413-3) [id number] 22:46:00 Test Item Value Reference Range Interpretation Comments NT-proBNP (test code 49 pg/mL See_Comment [Autom ated = 5084564715) message] The system which generated this result transmitted reference range : <=450. The reference range was not used to interpret this result as normal/abnormal . BRITTANY (test code = BRITTANY) Biotin has been reported to cause a negative bias, interpret results relative to patient's use of biotin. Lab Interpretation Normal (test code = 84164-1) [facility] ([id number])2020-03-05 22:41:00 Test Item Value Reference Range Interpretation Comments NA (test code = 130 mmol/L 135-145 L 5493797094) K (test code = 4.7 mmol/L 3.5-5 7613732967) CL (test code = 83 mmol/L 98-108 L 0863638947) CO2 TOTAL (test code = 39 mmol/L 23-31 H 3876338777) AGAP (test code = 2-16 0158572333) BUN (test code = 30 mg/dL 7-23 H 3527058779) GLUCOSE (test code = 468 mg/dL 70-110 HH 8958969769) CREATININE (test code = 1.13 mg/dL 0.5-1.04 H 8510464187) TOTAL BILI (test code = 0.6 mg/dL 0.1-1.1 3281215679) CALCIUM (test code = 9.4 mg/dL 8.6-10.6 0361088131) T PROTEIN (test code = 7.9 g/dL 6.3-8.2 1890848963) ALBUMIN (test code = 4.2 g/dL 3.5-5 5618883681) ALK PHOS (test code = 142 U/L 34-122 H 9302976035) ALTv (test code = 12 U/L 5-35 1742-6) AST(SGOT) (test code = 18 U/L 13-40 6819191653) eGFR Calculation mL/min/1.73m2 (Non-) (test code = 5292633414) eGFR Calculation mL/min/1.73m2 () (test code = 5648393131) BRITTANY (test code = BRITTANY) Association of Glomerular Filtration Rate (GFR) and Staging of Kidney Disease* + --+ --+ ------+| GFR (mL/min/1.73 m2) ?| With Kidney Damage ?| ?Without Kidney Damage+ --------+ --------+ +| ?>90 ?| ?Stage one ?| ? Normal ?+ ---+ ---+ -------+| ?60-89 ?| ?Stage two ?| ? Decreased GFR ? + --+ --+ ------+| ?30-59 ?| ?Stage three ?| ? Stage three ? + --+ --+ ------+| ?15-29 ?| ?Stage four ? | ? Stage four ?+ ---+ ---+ -------+| ?<15 (or dialysis) ? ?| ?Stage five ? | ? Stage five ?+ ---+ ---+ -------+ *Each stage assumes the associated GFR level has been in effect for at least three months. ?Stages 1 to 5, with or without kidney disease, indicate chronic kidney disease. Notes: Determination of stages one and two (with eGFR >59mL/min/1.73 m2) requires estimation of kidney damage for at least three months as defined by structural or functional abnormalities of the kidney, manifested by either:Pathological abnormalities or Markers of kidney damage (including abnormalities in the composition of the blood or urine or abnormalities in imaging tests). Lab Interpretation Abnormal (test code = 75510-4) [facility] 22:38:00 Test Item Value Reference Range Interpretation Comments APPEARANCE (test code = Clear Clear 5715983110) COLOR (test code = Straw Yellow A 3388757571) PH (test code = 4.8-8.0 9398192550) SP GRAVITY (test code = 1.003-1.030 1572004276) GLU U QUAL (test code = 500 mg/dL Normal A 9369944237) BLOOD (test code = Negative Negative 5704528864) KETONES (test code = Negative Negative 0168087332) PROTEIN (test code = Negative Negative 2887-8) UROBILIN (test code = Normal Normal 6726314676) BILIRUBIN (test code = Negative Negative 8440868288) NITRITE (test code = Negative Negative 5526658674) LEUK JEAN (test code = Negative Negative 2278759185) RBC/HPF (test code = <1 See_Comment [Autom ated message] 9970190770) The system [employer] generated this result transmit teri reference range : 0 - 3 HPF. The refe rence range was not u sed to interpret th is result as normal/abnormal . WBC/HPF (test code = See_Comment [Autom ated message] 2530865769) The system [employer] generated this result transmit teri reference range : 0 - 5 HPF. The refe rence range was not u sed to interpret th is result as normal/abnormal . BACTERIA (test code = Negative Negative 3508267933) Lab Interpretation (test Abnormal code = 61053-0) [facility] WITH [id number] 22:29:00 Test Item Value Reference Range Interpretation Comments WBC (test code = See_Comment [Automated 6690-2) message] The sy stem which generated this result transmitted reference range : 4.30 - 11.10 10*3/?L. The reference range was not used to interpret this result as normal/abnormal . RBC (test code = See_Comment [Automated 789-8) message] The sy stem which generated this result transmitted reference range : 3.93 - 5.25 10*6/?L. The reference range was not used to interpret this result as normal/abnormal . HGB (test code = 13.5 g/dL 11.6-15 718-7) HCT (test code = 41.9 % 35.7-45.2 4544-3) MCV (test code = 82.6 fL 80.6-95.5 787-2) MCH (test code = 26.6 pg 25.9-32.8 785-6) MCHC (test code = 32.2 g/dL 31.6-35.1 786-4) RDW-SD (test code = 48.3 fL 39-49.9 88702-2) RDW-CV (test code = 16.2 % 12-15.5 H 788-0) PLT (test code = See_Comment [Automated 777-3) message] The sy stem which generated this result transmitted reference range : 166 - 358 10*3/ ?L. The reference r milad was not used to interpret this result as normal/abnormal . MPV (test code = 11.4 fL 9.5-12.9 61202-4) NRBC/100 WBC (test See_Comment [Automat ed code = 6683092752) message] The system which generated this result transmitted reference range : 0.0 - 10.0 /100 WBCs. The refer ence range was not u sed to interpret th is result as normal/abnormal . NRBC x10^3 (test code <0.01 See_Comment [Auto mated = 2433509599) message] The s ystem which generated this result transmitted reference range : 10*3/?L. The reference range was not used to interpret this result as normal/abnormal . GRAN MAT (NEUT) % 62.9 % (test code = 770-8) IMM GRAN % (test code 0.80 % = 4443977694) LYMPH % (test code = 25.0 % 736-9) MONO % (test code = 7.9 % 5905-5) EOS % (test code = 2.9 % 713-8) BASO % (test code = 0.5 % 706-2) GRAN MAT x10^3(ANC) 5.55 10*3/uL 1.88-7.09 (test code = 3755214154) IMM GRAN x10^3 (test 0.07 10*3/uL 0-0.06 H code = 3113949325) LYMPH x10^3 (test code 2.21 10*3/uL 1.32-3.29 = 731-0) MONO x10^3 (test code 0.70 10*3/uL 0.33-0.92 = 742-7) EOS x10^3 (test code = 0.26 10*3/uL 0.03-0.39 711-2) BASO x10^3 (test code 0.04 10*3/uL 0.01-0.07 = 704-7) Lab Interpretation Abnormal (test code = 28722-4) [facility] GLUCOSE (AUTOMATED)2020-01-25 18:01:00 Test Item Value Reference Range Interpretation Comments POCT GLU (test code = 9163192445) 307 mg/dL 70-110 H Lab Interpretation (test code = Abnormal 86927-4) [facility] GLUCOSE (AUTOMATED)2020-01-25 14:16:00 Test Item Value Reference Range Interpretation Comments POCT GLU (test code = 5142404689) 164 mg/dL 70-110 H Lab Interpretation (test code = Abnormal 65095-8) [facility] [id number] 11:01:00 Test Item Value Reference Range Interpretation Comments NT-proBNP (test code 55 pg/mL See_Comment [Autom ated = 7392748224) message] The system which generated this result transmitted reference range : <=450. The reference range was not used to interpret this result as normal/abnormal . BRITTANY (test code = BRITTANY) Biotin has been reported to cause a negative bias, interpret results relative to patient's use of biotin. Lab Interpretation Normal (test code = 50243-8) [facility]2020-[facility]16 10:53:00 Test Item Value Reference Range Interpretation Comments MAGNESIUM (test code = 2079241234) 2.2 mg/dL 1.7-2.4 Lab Interpretation (test code = Normal 95804-6) [facility] (38740)2020-01-25 10:53:00 Test Item Value Reference Range Interpretation Comments NA (test code = 132 mmol/L 135-145 L 4645310224) K (test code = 4.0 mmol/L 3.5-5 9475395922) CL (test code = 86 mmol/L 98-108 L 3766700115) CO2 TOTAL (test code = 37 mmol/L 23-31 H 1091421686) AGAP (test code = 2-16 4224625025) BUN (test code = 34 mg/dL 7-23 H 9092569102) GLUCOSE (test code = 179 mg/dL 70-110 H 7370441502) CREATININE (test code = 1.38 mg/dL 0.5-1.04 H 3065176795) TOTAL BILI (test code = 0.7 mg/dL 0.1-1.6 7265341400) CALCIUM (test code = 10.2 mg/dL 8.6-10.6 0814962151) T PROTEIN (test code = 8.0 g/dL 6.3-8.2 8852340148) ALBUMIN (test code = 4.2 g/dL 3.5-5 1106745388) ALK PHOS (test code = 104 U/L 34-122 3624670780) ALTv (test code = 17 U/L 5-35 1742-6) AST(SGOT) (test code = 28 U/L 13-40 8613111872) eGFR Calculation mL/min/1.73m2 (Non-) (test code = 1092150696) eGFR Calculation mL/min/1.73m2 () (test code = 8340457279) BRITTANY (test code = BRITTANY) Association of Glomerular Filtration Rate (GFR) and Staging of Kidney Disease* + --+ --+ ------+| GFR (mL/min/1.73 m2) ?| With Kidney Damage ?| ?Without Kidney Damage+ --------+ --------+ +| ?>90 ?| ?Stage one ?| ? Normal ?+ ---+ ---+ -------+| ?60-89 ?| ?Stage two ?| ? Decreased GFR ? + --+ --+ ------+| ?30-59 ?| ?Stage three ?| ? Stage three ? + --+ --+ ------+| ?15-29 ?| ?Stage four ? | ? Stage four ?+ ---+ ---+ -------+| ?<15 (or dialysis) ? ?| ?Stage five ? | ? Stage five ?+ ---+ ---+ -------+ *Each stage assumes the associated GFR level has been in effect for at least three months. ?Stages 1 to 5, with or without kidney disease, indicate chronic kidney disease. Notes: Determination of stages one and two (with eGFR >59mL/min/1.73 m2) requires estimation of kidney damage for at least three months as defined by structural or functional abnormalities of the kidney, manifested by either:Pathological abnormalities or Markers of kidney damage (including abnormalities in the composition of the blood or urine or abnormalities in imaging tests). Lab Interpretation Abnormal (test code = 79938-6) [facility] WITH [id number] 09:55:00 Test Item Value Reference Range Interpretation Comments WBC (test code = See_Comment [Automated 5021-2) message] The sy stem which generated this result transmitted reference range : 4.30 - 11.10 10*3/?L. The reference range was not used to interpret this result as normal/abnormal . RBC (test code = See_Comment [Automated 725-8) message] The sy stem which generated this result transmitted reference range : 3.93 - 5.25 10*6/?L. The reference range was not used to interpret this result as normal/abnormal . HGB (test code = 12.6 g/dL 11.6-15 718-7) HCT (test code = 40.2 % 35.7-45.2 4544-3) MCV (test code = 81.0 fL 80.6-95.5 787-2) MCH (test code = 25.4 pg 25.9-32.8 L 785-6) MCHC (test code = 31.3 g/dL 31.6-35.1 L 786-4) RDW-SD (test code = 45.8 fL 39-49.9 57746-2) RDW-CV (test code = 15.6 % 12-15.5 H 788-0) PLT (test code = See_Comment [Automated 777-3) message] The sy stem which generated this result transmitted reference range : 166 - 358 10*3/ ?L. The reference r milad was not used to interpret this result as normal/abnormal . MPV (test code = 11.1 fL 9.5-12.9 10914-9) NRBC/100 WBC (test See_Comment [Automat ed code = 8671839514) message] The system which generated this result transmitted reference range : 0.0 - 10.0 /100 WBCs. The refer ence range was not u sed to interpret th is result as normal/abnormal . NRBC x10^3 (test code <0.01 See_Comment [Auto mated = 0709396122) message] The s ystem which generated this result transmitted reference range : 10*3/?L. The reference range was not used to interpret this result as normal/abnormal . GRAN MAT (NEUT) % 66.8 % (test code = 770-8) IMM GRAN % (test code 1.00 % = 5110745932) LYMPH % (test code = 17.3 % 736-9) MONO % (test code = 9.5 % 5905-5) EOS % (test code = 4.6 % 713-8) BASO % (test code = 0.8 % 706-2) GRAN MAT x10^3(ANC) 6.47 10*3/uL 1.88-7.09 (test code = 1819503734) IMM GRAN x10^3 (test 0.10 10*3/uL 0-0.06 H code = 2414020146) LYMPH x10^3 (test code 1.68 10*3/uL 1.32-3.29 = 731-0) MONO x10^3 (test code 0.92 10*3/uL 0.33-0.92 = 742-7) EOS x10^3 (test code = 0.45 10*3/uL 0.03-0.39 H 711-2) BASO x10^3 (test code 0.08 10*3/uL 0.01-0.07 H = 704-7) Lab Interpretation Abnormal (test code = 97473-3) [facility] CULTURE [id number] 05:01:00 Test Item Value Reference Range Interpretation Comments Blood Culture-Aerobic No organisms No growth Previo us (test code = 73971-2) isolated prelim inary verified result was Culture In Progress on 01/20/2020 at 0201 CSTPreviou s preliminary verified result was No growth a t 24 hours on 01/20/2020 at 2301 CSTPreviou s preliminary verified result was No growth a t 48 hours on 01/21/2020 at 2301 CSTPreviou s preliminary verified result was No growth a t 72 hours on 01/22/2020 at 2301 [employer] Blood No organisms No growth Previous Culture-Anaerobic isolated preliminar y (test code = 50868-2) verifi ed result was Culture In Progress on 01/20/2020 at 0201 CSTPreviou s preliminary verified result was No growth a t 24 hours on 01/20/2020 at 2301 CSTPreviou s preliminary verified result was No growth a t 48 hours on 01/21/2020 at 2301 CSTPreviou s preliminary verified result was No growth a t 72 hours on 01/22/2020 at 2301 [employer] Lab Interpretation Normal (test code = 51851-9) [facility] CULTURE [id number] 05:01:00 Test Item Value Reference Range Interpretation Comments Blood Culture-Aerobic No organisms No growth Previo us (test code = 69872-4) isolated prelim inary verified result was Culture In Progress on 01/20/2020 at 0201 CSTPreviou s preliminary verified result was No growth a t 24 hours on 01/20/2020 at 2301 CSTPreviou s preliminary verified result was No growth a t 48 hours on 01/21/2020 at 2301 CSTPreviou s preliminary verified result was No growth a t 72 hours on 01/22/2020 at 2301 [employer] Blood No organisms No growth Previous Culture-Anaerobic isolated preliminar y (test code = 10228-5) verifi ed result was Culture In Progress on 01/20/2020 at 0201 CSTPreviou s preliminary verified result was No growth a t 24 hours on 01/20/2020 at 2301 CSTPreviou s preliminary verified result was No growth a t 48 hours on 01/21/2020 at 2301 CSTPreviou s preliminary verified result was No growth a t 72 hours on 01/22/2020 at 2301 [employer] Lab Interpretation Normal (test code = 25903-0) [facility], [id number] 03:07:00 Test Item Value Reference Range Interpretation Comments VIT D 25OH (test code = 13 ng/mL 25-80 L 10497-0) BRITTANY (test code = BRITTANY) Deficiency: <20 ng/mLInsufficiency: 20-24 ng/mLOptimal: 25-80 ng/mL Lab Interpretation (test Abnormal code = 82934-1) [facility] GLUCOSE (AUTOMATED)2020-01-25 02:22:00 Test Item Value Reference Range Interpretation Comments POCT GLU (test code = 4342587456) 307 mg/dL 70-110 H Lab Interpretation (test code = Abnormal 84897-7) [facility] GLUCOSE (AUTOMATED)2020-01-24 22:55:00 Test Item Value Reference Range Interpretation Comments POCT GLU (test code = 0534535509) 284 mg/dL 70-110 H Lab Interpretation (test code = Abnormal 02657-6) [facility] GLUCOSE (AUTOMATED)2020-01-24 17:55:00 Test Item Value Reference Range Interpretation Comments POCT GLU (test code = 8903615093) 238 mg/dL 70-110 H Lab Interpretation (test code = Abnormal 70696-9) [facility] Center[facility] T[facility] Level - Draw no more than 60 minutes before the 0900 dose.2020-01-24 15:48:00 Test Item Value Reference Range Interpretation Comments VANCO TROUGH (test code 23.0 ug/mL 10-20 H = 8020807551) BRITTANY (test code = BRITTANY) Toxic Range: ?>20 ug/mL 15-20 ug/mL is recommended for severe infection or when Vancomycin LEONID is greater than or equal to 2. Lab Interpretation (test Abnormal code = 18245-9) [facility] GLUCOSE (AUTOMATED)2020-01-24 14:14:00 Test Item Value Reference Range Interpretation Comments POCT GLU (test code = 4278885889) 196 mg/dL 70-110 H Lab Interpretation (test code = Abnormal 66808-2) [facility] [id number] 11:04:00 Test Item Value Reference Range Interpretation Comments NT-proBNP (test code 72 pg/mL See_Comment [Autom ated = 4901518820) message] The system which generated this result transmitted reference range : <=450. The reference range was not used to interpret this result as normal/abnormal . BRITTANY (test code = BRITTANY) Biotin has been reported to cause a negative bias, interpret results relative to patient's use of biotin. Lab Interpretation Normal (test code = 39348-1) [facility]2020-[facility]-15 10:59:00 Test Item Value Reference Range Interpretation Comments MAGNESIUM (test code = 6081401822) 2.1 mg/dL 1.7-2.4 Lab Interpretation (test code = Normal 69971-0) [facility]. METABOLIC PANEL (95596)2020-01-24 10:59:00 Test Item Value Reference Range Interpretation Comments NA (test code = 131 mmol/L 135-145 L 4132615010) K (test code = 3.8 mmol/L 3.5-5 9071141116) CL (test code = 83 mmol/L 98-108 L 7310269849) CO2 TOTAL (test code = 38 mmol/L 23-31 H 0130616833) AGAP (test code = 2-16 6501585369) BUN (test code = 33 mg/dL 7-23 H 2896579529) GLUCOSE (test code = 232 mg/dL 70-110 H 3317737985) CREATININE (test code = 1.43 mg/dL 0.5-1.04 H 9980715847) TOTAL BILI (test code = 0.7 mg/dL 0.1-1.4 6109397637) CALCIUM (test code = 10.2 mg/dL 8.6-10.6 9440639551) T PROTEIN (test code = 7.4 g/dL 6.3-8.2 7784035688) ALBUMIN (test code = 4.1 g/dL 3.5-5 8499465323) ALK PHOS (test code = 110 U/L 34-122 5118593263) ALTv (test code = 15 U/L 5-35 1742-6) AST(SGOT) (test code = 29 U/L 13-40 4130121582) eGFR Calculation mL/min/1.73m2 (Non-) (test code = 8566544904) eGFR Calculation mL/min/1.73m2 () (test code = 2117283651) BRITTANY (test code = BRITTANY) Association of Glomerular Filtration Rate (GFR) and Staging of Kidney Disease* + --+ --+ ------+| GFR (mL/min/1.73 m2) ?| With Kidney Damage ?| ?Without Kidney Damage+ --------+ --------+ +| ?>90 ?| ?Stage one ?| ? Normal ?+ ---+ ---+ -------+| ?60-89 ?| ?Stage two ?| ? Decreased GFR ? + --+ --+ ------+| ?30-59 ?| ?Stage three ?| ? Stage three ? + --+ --+ ------+| ?15-29 ?| ?Stage four ? | ? Stage four ?+ ---+ ---+ -------+| ?<15 (or dialysis) ? ?| ?Stage five ? | ? Stage five ?+ ---+ ---+ -------+ *Each stage assumes the associated GFR level has been in effect for at least three months. ?Stages 1 to 5, with or without kidney disease, indicate chronic kidney disease. Notes: Determination of stages one and two (with eGFR >59mL/min/1.73 m2) requires estimation of kidney damage for at least three months as defined by structural or functional abnormalities of the kidney, manifested by either:Pathological abnormalities or Markers of kidney damage (including abnormalities in the composition of the blood or urine or abnormalities in imaging tests). Lab Interpretation Abnormal (test code = 63027-1) [facility] CenterURIC [id number] 10:58:00 Test Item Value Reference Range Interpretation Comments URIC ACID (test code = 5059108169) 7.3 mg/dL 2.9-6 H Lab Interpretation (test code = Abnormal 74277-5) [facility] WITH [id number] 10:26:00 Test Item Value Reference Range Interpretation Comments WBC (test code = See_Comment [Automated 6690-2) message] The sy stem which generated this result transmitted reference range : 4.30 - 11.10 10*3/?L. The reference range was not used to interpret this result as normal/abnormal . RBC (test code = See_Comment [Automated 789-8) message] The sy stem which generated this result transmitted reference range : 3.93 - 5.25 10*6/?L. The reference range was not used to interpret this result as normal/abnormal . HGB (test code = 12.4 g/dL 11.6-15 718-7) HCT (test code = 37.0 % 35.7-45.2 4544-3) MCV (test code = 79.6 fL 80.6-95.5 L 787-2) MCH (test code = 26.7 pg 25.9-32.8 785-6) MCHC (test code = 33.5 g/dL 31.6-35.1 786-4) RDW-SD (test code = 45.0 fL 39-49.9 49608-8) RDW-CV (test code = 15.9 % 12-15.5 H 788-0) PLT (test code = See_Comment [Automated 777-3) message] The sy stem which generated this result transmitted reference range : 166 - 358 10*3/ ?L. The reference r milad was not used to interpret this result as normal/abnormal . MPV (test code = 10.6 fL 9.5-12.9 96950-6) NRBC/100 WBC (test See_Comment [Automat ed code = 2198990475) message] The system which generated this result transmitted reference range : 0.0 - 10.0 /100 WBCs. The refer ence range was not u sed to interpret th is result as normal/abnormal . NRBC x10^3 (test code <0.01 See_Comment [Auto mated = 1994260743) message] The s ystem which generated this result transmitted reference range : 10*3/?L. The reference range was not used to interpret this result as normal/abnormal . GRAN MAT (NEUT) % 67.9 % (test code = 770-8) IMM GRAN % (test code 0.80 % = 1654263249) LYMPH % (test code = 17.4 % 736-9) MONO % (test code = 8.9 % 5905-5) EOS % (test code = 4.5 % 713-8) BASO % (test code = 0.5 % 706-2) GRAN MAT x10^3(ANC) 6.54 10*3/uL 1.88-7.09 (test code = 8818137730) IMM GRAN x10^3 (test 0.08 10*3/uL 0-0.06 H code = 9093139395) LYMPH x10^3 (test code 1.68 10*3/uL 1.32-3.29 = 731-0) MONO x10^3 (test code 0.86 10*3/uL 0.33-0.92 = 742-7) EOS x10^3 (test code = 0.43 10*3/uL 0.03-0.39 H 711-2) BASO x10^3 (test code 0.05 10*3/uL 0.01-0.07 = 704-7) Lab Interpretation Abnormal (test code = 30267-6) [facility] VENOUS BLOOD [id number] 09:56:00 Test Item Value Reference Range Interpretation Comments PH (test code = 7.32-7.42 H 2549407299) PCO2 ZACK (test code = See_Comment [Auto mated message] 3503691715) The system [employer] generated this result transmitted ref erence range: 41 - 51 mmHg. The reference r milad was not used to interpret this result as normal/abnor mal. PO2 ZACK (test code = See_Comment H [Autom ated message] 8650065370) The system [employer] generated this result transmitted ref erence range: 25 - 40 mmHg. The reference r milad was not used to interpret this result as normal/abnor mal. HCO3 ZACK (test code = See_Comment H [Auto mated message] 0618705383) The system [employer] generated this result transmitted ref erence range: 24 - 28 mEq/L. The reference r milad was not used to interpret this result as normal/abnor mal. AC VBE(BEAKER) (test mEq/L code = 6601341743) Lab Interpretation (test Abnormal code = 08814-0) [facility] 06:17:00 Test Item Value Reference Range Interpretation Comments POCT GLU (test code = 3485294272) 318 mg/dL 70-110 H Lab Interpretation (test code = Abnormal 78170-9) [facility] GLUCOSE (AUTOMATED)2020-01-24 06:17:00 Test Item Value Reference Range Interpretation Comments POCT GLU (test code = 3543437224) 283 mg/dL 70-110 H Lab Interpretation (test code = Abnormal 54493-8) [facility] GLUCOSE (AUTOMATED)2020-01-23 22:45:00 Test Item Value Reference Range Interpretation Comments POCT GLU (test code = 2432818995) 209 mg/dL 70-110 H Lab Interpretation (test code = Abnormal 17910-3) [facility] GLUCOSE (AUTOMATED)2020-01-23 18:21:00 Test Item Value Reference Range Interpretation Comments POCT GLU (test code = 1198655231) 302 mg/dL 70-110 H Lab Interpretation (test code = Abnormal 67366-0) [facility] GLUCOSE (AUTOMATED)2020-01-23 13:52:00 Test Item Value Reference Range Interpretation Comments POCT GLU (test code = 6805302380) 205 mg/dL 70-110 H Lab Interpretation (test code = Abnormal 31343-1) [facility] [id number] 10:33:00 Test Item Value Reference Range Interpretation Comments NT-proBNP (test code 75 pg/mL See_Comment [Autom ated = 6167234520) message] The system which generated this result transmitted reference range : <=450. The reference range was not used to interpret this result as normal/abnormal . BRITTANY (test code = BRITTANY) Biotin has been reported to cause a negative bias, interpret results relative to patient's use of biotin. Lab Interpretation Normal (test code = 00020-0) [id number] 10:24:00 Test Item Value Reference Range Interpretation Comments URIC ACID (test code = 9668816193) 6.3 mg/dL 2.9-6 H Lab Interpretation (test code = Abnormal 44189-1) [facility] 10[facility]24:00 Test Item Value Reference Range Interpretation Comments MAGNESIUM (test code = 5922437226) 1.9 mg/dL 1.7-2.4 Lab Interpretation (test code = Normal 34577-9) [facility]. METABOLIC PANEL (74326)2020-01-23 10:24:00 Test Item Value Reference Range Interpretation Comments NA (test code = 133 mmol/L 135-145 L 4850540092) K (test code = 3.7 mmol/L 3.5-5 9580672170) CL (test code = 86 mmol/L 98-108 L 9758558863) CO2 TOTAL (test code = 39 mmol/L 23-31 H 6954037509) AGAP (test code = 2-16 3056523541) BUN (test code = 29 mg/dL 7-23 H 7532931845) GLUCOSE (test code = 179 mg/dL 70-110 H 7818059800) CREATININE (test code = 1.31 mg/dL 0.5-1.04 H 6857776326) TOTAL BILI (test code = 0.7 mg/dL 0.1-1.6 8114007233) CALCIUM (test code = 9.6 mg/dL 8.6-10.6 2641726254) T PROTEIN (test code = 7.5 g/dL 6.3-8.2 0467218337) ALBUMIN (test code = 4.0 g/dL 3.5-5 8928613809) ALK PHOS (test code = 105 U/L 34-122 9273512002) ALTv (test code = 14 U/L 5-35 1742-6) AST(SGOT) (test code = 22 U/L 13-40 0731956332) eGFR Calculation mL/min/1.73m2 (Non-) (test code = 9433813119) eGFR Calculation mL/min/1.73m2 () (test code = 4042668533) BRITTANY (test code = BRITTANY) Association of Glomerular Filtration Rate (GFR) and Staging of Kidney Disease* + --+ --+ ------+| GFR (mL/min/1.73 m2) ?| With Kidney Damage ?| ?Without Kidney Damage+ --------+ --------+ +| ?>90 ?| ?Stage one ?| ? Normal ?+ ---+ ---+ -------+| ?60-89 ?| ?Stage two ?| ? Decreased GFR ? + --+ --+ ------+| ?30-59 ?| ?Stage three ?| ? Stage three ? + --+ --+ ------+| ?15-29 ?| ?Stage four ? | ? Stage four ?+ ---+ ---+ -------+| ?<15 (or dialysis) ? ?| ?Stage five ? | ? Stage five ?+ ---+ ---+ -------+ *Each stage assumes the associated GFR level has been in effect for at least three months. ?Stages 1 to 5, with or without kidney disease, indicate chronic kidney disease. Notes: Determination of stages one and two (with eGFR >59mL/min/1.73 m2) requires estimation of kidney damage for at least three months as defined by structural or functional abnormalities of the kidney, manifested by either:Pathological abnormalities or Markers of kidney damage (including abnormalities in the composition of the blood or urine or abnormalities in imaging tests). Lab Interpretation Abnormal (test code = 78894-3) [facility] WITH [id number] 10:07:00 Test Item Value Reference Range Interpretation Comments WBC (test code = See_Comment [Automated 4490-2) message] The sy stem which generated this result transmitted reference range : 4.30 - 11.10 10*3/?L. The reference range was not used to interpret this result as normal/abnormal . RBC (test code = See_Comment [Automated 289-8) message] The sy stem which generated this result transmitted reference range : 3.93 - 5.25 10*6/?L. The reference range was not used to interpret this result as normal/abnormal . HGB (test code = 12.5 g/dL 11.6-15 718-7) HCT (test code = 39.9 % 35.7-45.2 4544-3) MCV (test code = 80.3 fL 80.6-95.5 L 787-2) MCH (test code = 25.2 pg 25.9-32.8 L 785-6) MCHC (test code = 31.3 g/dL 31.6-35.1 L 786-4) RDW-SD (test code = 46.2 fL 39-49.9 43305-1) RDW-CV (test code = 15.9 % 12-15.5 H 788-0) PLT (test code = See_Comment [Automated 777-3) message] The sy stem which generated this result transmitted reference range : 166 - 358 10*3/ ?L. The reference r miald was not used to interpret this result as normal/abnormal . MPV (test code = 11.2 fL 9.5-12.9 65921-8) NRBC/100 WBC (test See_Comment [Automat ed code = 1718411986) message] The system which generated this result transmitted reference range : 0.0 - 10.0 /100 WBCs. The refer ence range was not u sed to interpret th is result as normal/abnormal . NRBC x10^3 (test code <0.01 See_Comment [Auto mated = 6999024729) message] The s ystem which generated this result transmitted reference range : 10*3/?L. The reference range was not used to interpret this result as normal/abnormal . GRAN MAT (NEUT) % 68.0 % (test code = 770-8) IMM GRAN % (test code 0.80 % = 0530145164) LYMPH % (test code = 17.4 % 736-9) MONO % (test code = 9.0 % 5905-5) EOS % (test code = 4.0 % 713-8) BASO % (test code = 0.8 % 706-2) GRAN MAT x10^3(ANC) 5.90 10*3/uL 1.88-7.09 (test code = 9544154001) IMM GRAN x10^3 (test 0.07 10*3/uL 0-0.06 H code = 8656034907) LYMPH x10^3 (test code 1.51 10*3/uL 1.32-3.29 = 731-0) MONO x10^3 (test code 0.78 10*3/uL 0.33-0.92 = 742-7) EOS x10^3 (test code = 0.35 10*3/uL 0.03-0.39 711-2) BASO x10^3 (test code 0.07 10*3/uL 0.01-0.07 = 704-7) Lab Interpretation Abnormal (test code = 49123-1) [facility] CARE VENOUS BLOOD [id number] 09:03:00 Test Item Value Reference Range Interpretation Comments PH (test code = 7.32-7.42 H 4587133321) PCO2 ZACK (test code = See_Comment [Auto mated message] 4401578626) The system [employer] generated this result transmitted ref erence range: 41 - 51 mmHg. The reference r milad was not used to interpret this result as normal/abnor mal. PO2 ZACK (test code = See_Comment H [Autom ated message] 0714860645) The system [employer] generated this result transmitted ref erence range: 25 - 40 mmHg. The reference r milad was not used to interpret this result as normal/abnor mal. HCO3 ZACK (test code = See_Comment H [Auto mated message] 1220870128) The system [employer] generated this result transmitted ref erence range: 24 - 28 mEq/L. The reference r milad was not used to interpret this result as normal/abnor mal. AC VBE(BEAKER) (test mEq/L code = 8101579434) Lab Interpretation (test Abnormal code = 14095-2) [facility] GLUCOSE (AUTOMATED)2020-01-23 01:53:00 Test Item Value Reference Range Interpretation Comments POCT GLU (test code = 4125831929) 298 mg/dL 70-110 H Lab Interpretation (test code = Abnormal 80744-1) [facility] [id number] 01:12:00 Test Item Value Reference Range Interpretation Comments URIC ACID (test code = 3263447622) 5.8 mg/dL 2.9-6 Lab Interpretation (test code = Normal 15633-2) [facility] GLUCOSE (AUTOMATED)2020-01-22 18:02:00 Test Item Value Reference Range Interpretation Comments POCT GLU (test code = 1301749676) 275 mg/dL 70-110 H Lab Interpretation (test code = Abnormal 70972-5) [facility] GLUCOSE (AUTOMATED)2020-01-22 13:48:00 Test Item Value Reference Range Interpretation Comments POCT GLU (test code = 1494476137) 185 mg/dL 70-110 H Lab Interpretation (test code = Abnormal 14166-3) [facility] WITH [id number] 12:18:00 Test Item Value Reference Range Interpretation Comments WBC (test code = See_Comment [Automated 6690-2) message] The sy stem which generated this result transmitted reference range : 4.30 - 11.10 10*3/?L. The reference range was not used to interpret this result as normal/abnormal . RBC (test code = See_Comment [Automated 789-8) message] The sy stem which generated this result transmitted reference range : 3.93 - 5.25 10*6/?L. The reference range was not used to interpret this result as normal/abnormal . HGB (test code = 12.4 g/dL 11.6-15 718-7) HCT (test code = 38.8 % 35.7-45.2 4544-3) MCV (test code = 80.2 fL 80.6-95.5 L 787-2) MCH (test code = 25.6 pg 25.9-32.8 L 785-6) MCHC (test code = 32.0 g/dL 31.6-35.1 786-4) RDW-SD (test code = 46.7 fL 39-49.9 92948-1) RDW-CV (test code = 16.0 % 12-15.5 H 788-0) PLT (test code = See_Comment [Automated 777-3) message] The sy stem which generated this result transmitted reference range : 166 - 358 10*3/ ?L. The reference r milad was not used to interpret this result as normal/abnormal . MPV (test code = 10.9 fL 9.5-12.9 29270-4) NRBC/100 WBC (test See_Comment [Automat ed code = 2885825254) message] The system which generated this result transmitted reference range : 0.0 - 10.0 /100 WBCs. The refer ence range was not u sed to interpret th is result as normal/abnormal . NRBC x10^3 (test code <0.01 See_Comment [Auto mated = 9505041149) message] The s ystem which generated this result transmitted reference range : 10*3/?L. The reference range was not used to interpret this result as normal/abnormal . GRAN MAT (NEUT) % 61.6 % (test code = 770-8) IMM GRAN % (test code 0.90 % = 5931792140) LYMPH % (test code = 21.8 % 736-9) MONO % (test code = 10.7 % 5905-5) EOS % (test code = 4.3 % 713-8) BASO % (test code = 0.7 % 706-2) GRAN MAT x10^3(ANC) 4.27 10*3/uL 1.88-7.09 (test code = 5253706846) IMM GRAN x10^3 (test 0.06 10*3/uL 0-0.06 code = 8833961016) LYMPH x10^3 (test code 1.51 10*3/uL 1.32-3.29 = 731-0) MONO x10^3 (test code 0.74 10*3/uL 0.33-0.92 = 742-7) EOS x10^3 (test code = 0.30 10*3/uL 0.03-0.39 711-2) BASO x10^3 (test code 0.05 10*3/uL 0.01-0.07 = 704-7) Lab Interpretation Abnormal (test code = 54346-7) [facility] [id number] 11:51:00 Test Item Value Reference Range Interpretation Comments NT-proBNP (test code 117 pg/mL See_Comment [Autom ated = 9814588123) message] The system which generated this result transmitted reference range : <=450. The reference range was not used to interpret this result as normal/abnormal . BRITTANY (test code = BRITTANY) Biotin has been reported to cause a negative bias, interpret results relative to patient's use of biotin. Lab Interpretation Normal (test code = 00329-1) [facility]OL[facility] (79103)2020-01-22 11:46:00 Test Item Value Reference Range Interpretation Comments NA (test code = 134 mmol/L 135-145 L 3176020956) K (test code = 3.2 mmol/L 3.5-5 L 8549221423) CL (test code = 88 mmol/L 98-108 L 6539587559) CO2 TOTAL (test code = 38 mmol/L 23-31 H 4255212141) AGAP (test code = 2-16 5303686629) BUN (test code = 24 mg/dL 7-23 H 6047687843) GLUCOSE (test code = 201 mg/dL 70-110 H 3190426170) CREATININE (test code = 1.10 mg/dL 0.5-1.04 H 9749952198) TOTAL BILI (test code = 0.6 mg/dL 0.1-1.0 5809682059) CALCIUM (test code = 9.4 mg/dL 8.6-10.6 5969631507) T PROTEIN (test code = 7.0 g/dL 6.3-8.2 7534226952) ALBUMIN (test code = 3.8 g/dL 3.5-5 5823815795) ALK PHOS (test code = 101 U/L 34-122 4464443479) ALTv (test code = 11 U/L 5-35 2-6) AST(SGOT) (test code = 16 U/L 13-40 9449371975) eGFR Calculation mL/min/1.73m2 (Non-) (test code = 6068627925) eGFR Calculation mL/min/1.73m2 () (test code = 1631717704) BRITTANY (test code = BRITTANY) Association of Glomerular Filtration Rate (GFR) and Staging of Kidney Disease* + --+ --+ ------+| GFR (mL/min/1.73 m2) ?| With Kidney Damage ?| ?Without Kidney Damage+ --------+ --------+ +| ?>90 ?| ?Stage one ?| ? Normal ?+ ---+ ---+ -------+| ?60-89 ?| ?Stage two ?| ? Decreased GFR ? + --+ --+ ------+| ?30-59 ?| ?Stage three ?| ? Stage three ? + --+ --+ ------+| ?15-29 ?| ?Stage four ? | ? Stage four ?+ ---+ ---+ -------+| ?<15 (or dialysis) ? ?| ?Stage five ? | ? Stage five ?+ ---+ ---+ -------+ *Each stage assumes the associated GFR level has been in effect for at least three months. ?Stages 1 to 5, with or without kidney disease, indicate chronic kidney disease. Notes: Determination of stages one and two (with eGFR >59mL/min/1.73 m2) requires estimation of kidney damage for at least three months as defined by structural or functional abnormalities of the kidney, manifested by either:Pathological abnormalities or Markers of kidney damage (including abnormalities in the composition of the blood or urine or abnormalities in imaging tests). Lab Interpretation Abnormal (test code = 11815-0) [facility] 11:46:00 Test Item Value Reference Range Interpretation Comments MAGNESIUM (test code = 0205782013) 1.9 mg/dL 1.7-2.4 Lab Interpretation (test code = Normal 01563-3) [facility] [id number] 11:00:00 Test Item Value Reference Range Interpretation Comments PH (test code = 7.32-7.42 H 2896652353) PCO2 ZACK (test code = See_Comment [Auto mated message] 2847605485) The system [employer] generated this result transmitted ref erence range: 41 - 51 mmHg. The reference r milad was not used to interpret this result as normal/abnor mal. PO2 ZACK (test code = See_Comment HH [Autom ated message] 1781778900) The system [employer] generated this result transmitted ref erence range: 25 - 40 mmHg. The reference r milad was not used to interpret this result as normal/abnor mal. HCO3 ZACK (test code = See_Comment H [Auto mated message] 8225082683) The system [employer] generated this result transmitted ref erence range: 24 - 28 mEq/L. The reference r milad was not used to interpret this result as normal/abnor mal. AC VBE(BEAKER) (test mEq/L code = 0702352525) Lab Interpretation (test Abnormal code = 98287-8) [facility]2020-01-22 06:22:00 Test Item Value Reference Range Interpretation Comments POCT GLU (test code = 5296783130) 276 mg/dL 70-110 H Lab Interpretation (test code = Abnormal 16343-4) [facility] Center[facility] T[facility] - Draw immediately prior to the 4th dose, but, no more than 60 minutes before the 4th dose. 2020-01-22 05:02:00 Test Item Value Reference Range Interpretation Comments VANCO TROUGH (test code 14.1 ug/mL 10-20 = 7417948687) BRITTANY (test code = BRITTANY) Toxic Range: ?>20 ug/mL 15-20 ug/mL is recommended for severe infection or when Vancomycin LEONID is greater than or equal to 2. Lab Interpretation (test Normal code = 23175-3) [facility]2020-01-22 02:19:00 Test Item Value Reference Range Interpretation Comments POCT GLU (test code = 3587868351) 385 mg/dL 70-110 H Lab Interpretation (test code = Abnormal 70611-2) [facility] ONLY COVID [id number] 23:18:00COVID DMT InterpretationInterpretation/Recommendations: Molecular NAAT Tests for Active Infection with the SARS-CoV-2 Virus: This result indicates that the patient has tested negative on one occasion for the SARS-CoV-2 virus that causes COVID-19 illness. This most likely indicates that the patient does not have an active infection with the SARS-CoV-2 virus. However, infection is not completely ruled out as the false negative rate for molecular NAAT testing using a nasopharyngeal sample can be up to 30%, mostly dependent on the timing of sample collection in relation to illness onset and any deficiencies in sampling techniques. If the patient continues to have persistent or worsening symptoms concerning for COVID-19 illness, a repeat NAAT test (PCR, Rapid ID Now, etc.) should be performed, at which time the SARS-CoV-2 virus - if present - may have reached a detectable viral load (usually peaking by the end of the first week of symptoms). Tests for IgM and/or IgG Antibodies to SARS-CoV-2 Virus: Testing for IgM and IgG antibodies 1-3 weeks after illness onset will indicate whether the patient has produced antibodies to the virus. At this time, it is not known if the production of antibodies - specifically IgG antibodies - indicates whether the patient is immune to future infections with the SARS-CoV-2 virus. ? ? Interp retation Result Comments: These interpretation comments are based upon aggregate COVID-19 test results pooled from [facility]. They apply to the following tests offered at [facility] and assume the acceptable specimen type(s) were used: A. Tests for the Identification of SARS-CoV-2 RNA (Molecular NAAT Tests): ?- SARS-CoV-2 PCR assays including [place] Aptima, [place] Fusion, [employer] RealTime, and [employer] Xpert Xpress. ?- SARS-CoV-2 Rapid ID NOW by the ID NOW assay. ? B. Tests for the Identification of SARS-CoV-2 Antibodies: ?- Chemiluminescent immunoassays including Access SARS-CoV-2 IgM (DXI 600), CardbackS Ojdf-DIAT-GoO-2 IgG (Vitros 5600 and Vitros 3600), and [employer] SARS-CoV-2 IgG (MIXER LEVER OPERATOR I System). These interpretations are autopopulated into [facility] based on computerized algorithms matching an interpretation code to the patient's set of test results, and a clinical pathologist evaluates the comments for accuracy. However, these comments do not consider testing a patient may have hadoutside of the [facility] system. If results for COVID-19 infection continue to be negative in the contextof a suspected viral respiratory illness, it is possible the patient may have an infection with another respiratory virus. Influenza testing and a respiratory pathogen panel if clinically indicated maybe beneficial in this setting. If there continues to be a high degree of clinical suspicion for COVID- 19 illness despite multiple negative tests on nasopharyngeal specimens, then it may be necessary totest the patient for the SARS-CoV-2 virus using lower respiratory tract samples (such as sputum, bronchoalveolar lavage fluid (BAL), tracheal aspirate, etc.). ? [facility] LABORATORY SERVICESCOVID ZojyfpsPHQW-QvN-3 Rapid ID NOW (no units) ? ? Date ? Value ? 01/19/2020 ? Not Detected ? [facility] Center[facility]IT[facility]IN B12, [id number] 22:17:00 Test Item Value Reference Range Interpretation Comments VIT B12 (test code = 193 pg/mL 240-930 L 1438106955) BRITTANY (test code = BRITTANY) Biotin has been reported to cause a positive bias, interpret results relative to patient's use of biotin. Lab Interpretation (test Abnormal code = 43685-0) [facility] CenterPROCALCITONIN2020-12-12 20:21:00 Test Item Value Reference Range Interpretation Comments Procalcitonin (test 0.04 ng/mL <0.07 code = 2822057338) BRITTANY (test code = BRITTANY) INTERPRETATION OF PROCALCITONIN RESULTS IN ADULTS >= 18 YEARS OF AGE Initiation and discontinuation of antibiotics on patients with suspected or confirmed Lower Respiratory Tract Infection in Adults >= 18 years of age. + +-------- --------+ + -----+|Procalcitonin |Interpretation ?|Antibiotic ? ? |Considerations ? |ng/mL ? | ?|recommendation | ? + +-------- --------+ + -----+| <0.1 ? | Bacterial ? ? ?| Strongly ? ? ?| ? | ?| infection very | discouraged ? | Overruling: ? | ?| unlikely ? ? ? | ? | ? Clinically unstable ? ? ? + +-------- --------+ + ? High risk for adverse ? ? | <0.25 ?| Bacterial ? ? ?| Discouraged ? | ? outcome ? | ?| infection ? ? ?| ? | ? SEE IMPORTANT NOTE ?| ?| unlikely ? ? ? | ? | ? + +-------- --------+ + -----+| >=0.25 ? ? ? | Bacterial ? ? ?| Encouraged ? ?| ? | ?| infection ? ? ?| ? | ? | ?| likely ? | ? | Consider treatment failure ?+ +------- ---------+ -+ if levels does not decrease | >0.5 ? | Bacterial ? ? ?| Strongly ? ? ?| appropriately ? | ?| infection very | encouraged ? ?| ? | ?| likely ? | ? | ? + +-------- --------+ + -----+ Discontinuation of antibiotics in high-acuity patients with suspected or confirmed sepsis in Adults >= 18 years of age. + +-------- --------+ + -----+|Procalcitonin |Interpretation ?|Antibiotic ? ? |Considerations ? |ng/mL ? | ?|recommendation | ? + +-------- --------+ + -----+| <0.25 ?| Bacterial ? ? ?| Strongly ? ? ?| ? | ?| infection very | discouraged ? | Overruling: ? | ?| unlikely ? ? ? | ? | ? Clinically unstable ? ? ? + +-------- --------+ + ? High risk for adverse ? ? | <0.5 or drop | Bacterial ? ? ?| Discouraged ? | ? outcome ? | >80% from ? ?| infection ? ? ?| ? | ? SEE IMPORTANT NOTE ?| highest PCT ?| unlikely ? ? ? | ? | ? | level ?| ?| ? | ? + +-------- --------+ + -----+| >=0.5 ?| Bacterial ? ? ?| Encouraged ? ?| ? | ?| infection ? ? ?| ? | ? | ?| likely ? | ? | Consider treatment failure ?+ +------- ---------+ -+ if levels does not decrease | >1.0 ? | Bacterial ? ? ?| Strongly ? ? ?| appropriately ? | ?| infection very | encouraged ? ?| ? | ?| likely ? | ? | ? + +-------- --------+ + -----+ Percentage of drop of Procalcitonin calculation for Discontinuation of antibiotics in high-acuity patients with suspected or confirmed sepsis in Adults >= 18 years of age. ? Procalcitonin highest{}-Procalcitonin current{}Delta Procalcitonin = x100% ? Procalcitonin current {} IMPORTANT NOTE: Procalcitonin may be elevated without bacterial infection by physiologic stress related to trauma, morataya, chronic dialysis, metastatic cancer, surgery in the past seven days, malaria, some fungal infections, and some forms of vasculitis. The interpretation algorithm may not apply to patients with immunosuppression (equivalent of >10 mg of prednisone daily), HIV with CD4 cell count < 350 cells/mm3, active malignancy on systemic chemotherapy, solid organ transplant or hematopoietic stem cell transplantation, or hospital acquired pneumonia. Additionally, some clinical trials of procalcitonin have excluded patients with shock requiring vasopressor use, acute respiratory failure requiring mechanical ventilation, or those with known lung abscess/empyema. For further information please refer to:[email or web address] Lab Interpretation Normal (test code = 72224-2) [facility] GLUCOSE (AUTOMATED)2020-01-21 18:43:00 Test Item Value Reference Range Interpretation Comments POCT GLU (test code = 3766888771) 266 mg/dL 70-110 H Lab Interpretation (test code = Abnormal 44591-6) [facility] Center[facility] [id number] 14:27:00 Test Item Value Reference Range Interpretation Comments URINE CULTURE (test < 10,000 CFU/mL mixed code = 630-4) aerobic organisms - suggests endogenous microbial contamination [facility] GLUCOSE (AUTOMATED)2020-01-21 14:07:00 Test Item Value Reference Range Interpretation Comments POCT GLU (test code = 5092350145) 138 mg/dL 70-110 H Lab Interpretation (test code = Abnormal 23606-3) [facility] Center[facility]AL [id number] 12:34:00 Test Item Value Reference Range Interpretation Comments NT-proBNP (test code 160 pg/mL See_Comment [Autom ated = 0708126384) message] The system which generated this result transmitted reference range : <=450. The reference range was not used to interpret this result as normal/abnormal . BRITTANY (test code = BRITTANY) Biotin has been reported to cause a negative bias, interpret results relative to patient's use of biotin. Lab Interpretation Normal (test code = 50338-9) [facility] CenterPHOSPHORUS2020-12-12 12:26:00 Test Item Value Reference Range Interpretation Comments PHOSPHORUS (test code = 4275619419) 4.2 mg/dL 2.5-5 Lab Interpretation (test code = Normal 95807-9) [facility] Center[facility] MET[facility]OLIC PANEL (81691)2020-01-21 12:26:00 Test Item Value Reference Range Interpretation Comments NA (test code = 134 mmol/L 135-145 L 6297972458) K (test code = 3.6 mmol/L 3.5-5 3701338783) CL (test code = 95 mmol/L 98-108 L 0946243296) CO2 TOTAL (test code = 31 mmol/L 23-31 9837522092) AGAP (test code = 2-16 9765793632) BUN (test code = 19 mg/dL 7-23 7488976349) GLUCOSE (test code = 165 mg/dL 70-110 H 9015800342) CREATININE (test code = 0.85 mg/dL 0.5-1.04 3887309120) TOTAL BILI (test code = 0.6 mg/dL 0.1-1.6 3259210844) CALCIUM (test code = 8.9 mg/dL 8.6-10.6 5652043385) T PROTEIN (test code = 5.9 g/dL 6.3-8.2 L 3197143735) ALBUMIN (test code = 3.1 g/dL 3.5-5 L 7174654903) ALK PHOS (test code = 89 U/L 34-122 2461117777) ALTv (test code = 10 U/L 5-35 1742-6) AST(SGOT) (test code = 17 U/L 13-40 0914425302) eGFR Calculation mL/min/1.73m2 (Non-) (test code = 8797444600) eGFR Calculation mL/min/1.73m2 () (test code = [id number]) BRITTANY (test code = BRITTANY) Association of Glomerular Filtration Rate (GFR) and Staging of Kidney Disease* + --+ --+ ------+| GFR (mL/min/1.73 m2) ?| With Kidney Damage ?| ?Without Kidney Damage+ --------+ --------+ +| ?>90 ?| ?Stage one ?| ? Normal ?+ ---+ ---+ -------+| ?60-89 ?| ?Stage two ?| ? Decreased GFR ? + --+ --+ ------+| ?30-59 ?| ?Stage three ?| ? Stage three ? + --+ --+ ------+| ?15-29 ?| ?Stage four ? | ? Stage four ?+ ---+ ---+ -------+| ?<15 (or dialysis) ? ?| ?Stage five ? | ? Stage five ?+ ---+ ---+ -------+ *Each stage assumes the associated GFR level has been in effect for at least three months. ?Stages 1 to 5, with or without kidney disease, indicate chronic kidney disease. Notes: Determination of stages one and two (with eGFR >59mL/min/1.73 m2) requires estimation of kidney damage for at least three months as defined by structural or functional abnormalities of the kidney, manifested by either:Pathological abnormalities or Markers of kidney damage (including abnormalities in the composition of the blood or urine or abnormalities in imaging tests). Lab Interpretation Abnormal (test code = 20574-9) [facility] 12[facility]26:00 Test Item Value Reference Range Interpretation Comments MAGNESIUM (test code = 4430621468) 1.5 mg/dL 1.7-2.4 L Lab Interpretation (test code = Abnormal 67273-8) [facility] WITH [id number] 12:13:00 Test Item Value Reference Range Interpretation Comments WBC (test code = See_Comment [Automated 4920-2) message] The sy stem which generated this result transmitted reference range : 4.30 - 11.10 10*3/?L. The reference range was not used to interpret this result as normal/abnormal . RBC (test code = See_Comment [Automated 367-5) message] The sy stem which generated this result transmitted reference range : 3.93 - 5.25 10*6/?L. The reference range was not used to interpret this result as normal/abnormal . HGB (test code = 11.3 g/dL 11.6-15 L 718-7) HCT (test code = 35.3 % 35.7-45.2 L 4544-3) MCV (test code = 80.2 fL 80.6-95.5 L 787-2) MCH (test code = 25.7 pg 25.9-32.8 L 785-6) MCHC (test code = 32.0 g/dL 31.6-35.1 786-4) RDW-SD (test code = 46.5 fL 39-49.9 36733-2) RDW-CV (test code = 15.9 % 12-15.5 H 788-0) PLT (test code = See_Comment [Automated 777-3) message] The sy stem which generated this result transmitted reference range : 166 - 358 10*3/ ?L. The reference r milad was not used to interpret this result as normal/abnormal . MPV (test code = 11.0 fL 9.5-12.9 55509-5) NRBC/100 WBC (test See_Comment [Automat ed code = 6226763774) message] The system which generated this result transmitted reference range : 0.0 - 10.0 /100 WBCs. The refer ence range was not u sed to interpret th is result as normal/abnormal . NRBC x10^3 (test code <0.01 See_Comment [Auto mated = 0635858462) message] The s ystem which generated this result transmitted reference range : 10*3/?L. The reference range was not used to interpret this result as normal/abnormal . GRAN MAT (NEUT) % 61.2 % (test code = 770-8) IMM GRAN % (test code 0.40 % = 2629492205) LYMPH % (test code = 22.7 % 736-9) MONO % (test code = 10.6 % 5905-5) EOS % (test code = 4.2 % 713-8) BASO % (test code = 0.9 % 706-2) GRAN MAT x10^3(ANC) 4.23 10*3/uL 1.88-7.09 (test code = 4826171596) IMM GRAN x10^3 (test 0.03 10*3/uL 0-0.06 code = 7253218605) LYMPH x10^3 (test code 1.57 10*3/uL 1.32-3.29 = 731-0) MONO x10^3 (test code 0.73 10*3/uL 0.33-0.92 = 742-7) EOS x10^3 (test code = 0.29 10*3/uL 0.03-0.39 711-2) BASO x10^3 (test code 0.06 10*3/uL 0.01-0.07 = 704-7) Lab Interpretation Abnormal (test code = 70155-4) [facility] [id number] 11:56:00 Test Item Value Reference Range Interpretation Comments PH (test code = 7.32-7.42 H 0569163737) PCO2 ZACK (test code = See_Comment L [Auto mated message] 8948306349) The system [employer] generated this result transmitted ref erence range: 41 - 51 mmHg. The reference r milad was not used to interpret this result as normal/abnor mal. PO2 ZACK (test code = See_Comment HH [Autom ated message] 3294360657) The system [employer] generated this result transmitted ref erence range: 25 - 40 mmHg. The reference r milad was not used to interpret this result as normal/abnor mal. HCO3 ZACK (test code = See_Comment [Auto mated message] 9508624356) The system [employer] generated this result transmitted ref erence range: 24 - 28 mEq/L. The reference r milad was not used to interpret this result as normal/abnor mal. AC VBE(BEAKER) (test mEq/L code = 6174242723) Lab Interpretation (test Abnormal code = 77035-5) [facility]2020-01-21 05:45:00 Test Item Value Reference Range Interpretation Comments POCT GLU (test code = 0821096565) 292 mg/dL 70-110 H Lab Interpretation (test code = Abnormal 56687-9) [facility] CenterTHYROID STIMULATING [id number] 03:31:00 Test Item Value Reference Range Interpretation Comments TSH (test code = See_Comment [Automated message] 2103235209) The system [employer] generated this result transmitted ref erence range: 0.45 - 4 .70 mIU/L. The refe rence range was not u sed to interpret this result as normal/abnor mal. Lab Interpretation (test Normal code = 04315-7) [facility] CenterURIC [id number] 03:28:00 Test Item Value Reference Range Interpretation Comments URIC ACID (test code = 2165004572) 4.6 mg/dL 2.9-6 Lab Interpretation (test code = Normal 40452-0) [facility]2020-[facility]12 03:28:00 Test Item Value Reference Range Interpretation Comments MAGNESIUM (test code = 7523147104) 1.7 mg/dL 1.7-2.4 Lab Interpretation (test code = Normal 79694-5) [facility]PHOSPHORUS2020-12-12 03:28:00 Test Item Value Reference Range Interpretation Comments PHOSPHORUS (test code = 9920931266) 2.9 mg/dL 2.5-5 Lab Interpretation (test code = Normal 76325-5) [facility]N-[facility]MINAL [id number] 03:28:00 Test Item Value Reference Range Interpretation Comments NT-proBNP (test code 240 pg/mL See_Comment [Autom ated = 9267348152) message] The system which generated this result transmitted reference range : <=450. The reference range was not used to interpret this result as normal/abnormal . BRITTANY (test code = BRITTANY) Biotin has been reported to cause a negative bias, interpret results relative to patient's use of biotin. Lab Interpretation Normal (test code = 44119-0) [facility] CenterLIPID PANEL (89568)(TOTAL CHOLESTEROL, TRIGLYCERIDES, HDL)2020-01-21 03:00:00 Test Item Value Reference Range Interpretation Comments CHOL (test code = 173 mg/dL 120-200 7218531050) HDL (test code = 23 mg/dL >50 L 5714752256) HDLC RATIO (test code = See_Comment H [Au tomated message] 4391639198) The system [employer] generated this result transmit teri reference range : <=4.5. The refe rence range was not u sed to interpret th is result as normal/abnormal . TRIG (test code = 257 mg/dL 30-170 H 2889643090) LDL CHOL (test code = 99 mg/dL See_Comment [Auto mated message] 52934-3) The system [employer] generated this result transmit teri reference range : <=160. The refe rence range was not u sed to interpret th is result as normal/abnormal . VLDL (test code = 51 mg/dL 5-60 9813068663) Lab Interpretation (test Abnormal code = 58674-3) [facility] GLUCOSE (AUTOMATED)2020-01-21 02:47:00 Test Item Value Reference Range Interpretation Comments POCT GLU (test code = 3231609423) 358 mg/dL 70-110 H Lab Interpretation (test code = Abnormal 16984-3) [facility] GLUCOSE (AUTOMATED)2020-01-20 22:34:00 Test Item Value Reference Range Interpretation Comments POCT GLU (test code = 1841963012) 288 mg/dL 70-110 H Lab Interpretation (test code = Abnormal 23234-6) [facility] CenterTROPONIN [id number] 15:22:00 Test Item Value Reference Range Interpretation Comments TROPONIN I (test <0.012 See_Comment [Automated code = 9971732252) message] The system which generated this result transmitted reference range : <=0.034 ng/mL. The reference range was not used to interpr et this result as normal/abnormal . BRITTANY (test code = Equal or Less than BRITTANY) 0.034 ng/ml---Normal ?Note: Cardiac troponin begins to rise 3-4 hours after the onset of ischemia. Repeat in 4-6 hours if the sample was drawn within 3-4 hours of the onset of the symptom and found normal. Between 0.035 and 0.120 ng/mL--- Borderline. Questionable myocardial injury or necrosis ? ?Note: Serial measurement may be necessary to confirm or exclude the diagnosis of myocardial injury or necrosis; Clinical correlation (symptoms, EKGs, imaging studies, and others) required; Repeat in 4-6 hours if clinically indicated. ? Equal or Higher than 0.121 ng/mL---Abnormal. Myocardial Injury or Necrosis Likely ? Biotin has been reported to cause a negative bias, interpret results relative to patient's use of biotin. ? Lab Interpretation Normal (test code = 68383-6) [facility] (NA, K, CL, CO2, GLUCOSE, BUN, CREATININE, CA)2020-01-20 15:12:00 Test Item Value Reference Range Interpretation Comments NA (test code = 135 mmol/L 135-145 9041167651) K (test code = 3.6 mmol/L 3.5-5 2826390170) CL (test code = 96 mmol/L 98-108 L 2435036424) CO2 TOTAL (test code = 33 mmol/L 23-31 H 2428620834) AGAP (test code = 2-16 2649822815) BUN (test code = 13 mg/dL 7-23 0647800681) GLUCOSE (test code = 249 mg/dL 70-110 H 4785128374) CREATININE (test code = 0.79 mg/dL 0.5-1.04 0648275833) CALCIUM (test code = 8.8 mg/dL 8.6-10.6 9036438131) eGFR Calculation mL/min/1.73m2 (Non-) (test code = 0412427223) eGFR Calculation mL/min/1.73m2 () (test code = 7715243606) BRITTANY (test code = BRITTANY) Association of Glomerular Filtration Rate (GFR) and Staging of Kidney Disease* + --+ --+ ------+| GFR (mL/min/1.73 m2) ?| With Kidney Damage ?| ?Without Kidney Damage+ --------+ --------+ +| ?>90 ?| ?Stage one ?| ? Normal ?+ ---+ ---+ -------+| ?60-89 ?| ?Stage two ?| ? Decreased GFR ? + --+ --+ ------+| ?30-59 ?| ?Stage three ?| ? Stage three ? + --+ --+ ------+| ?15-29 ?| ?Stage four ? | ? Stage four ?+ ---+ ---+ -------+| ?<15 (or dialysis) ? ?| ?Stage five ? | ? Stage five ?+ ---+ ---+ -------+ *Each stage assumes the associated GFR level has been in effect for at least three months. ?Stages 1 to 5, with or without kidney disease, indicate chronic kidney disease. Notes: Determination of stages one and two (with eGFR >59mL/min/1.73 m2) requires estimation of kidney damage for at least three months as defined by structural or functional abnormalities of the kidney, manifested by either:Pathological abnormalities or Markers of kidney damage (including abnormalities in the composition of the blood or urine or abnormalities in imaging tests). Lab Interpretation Abnormal (test code = 63841-6) [facility] CenterXR CHEST 1 [id number] 15:03:01 Left basilar subsegmental atelectasis. No pulmonary edema. Preliminary Report Dictated by Resident:Torsten Chow MD., have reviewed this study and agree with theabove report.EXAM: XR CHEST 1 VW CLINICAL INDICATION: fatige, leg swelling COMPARISON: 12/17/2018 TECHNIQUE: Frontal view of the chest. FINDINGS: Left basilar atelectasis. No pleural effusion or pneumothorax. The cardiac silhouette is normal to mildly enlarged. No acute osseous abnormality. Degenerative changes of bothacromioclavicular joints. Widening of the right acromiohumeral interval. Ndmb, Radiant Results InftUser - 01/20/2020 9:04 AM CSTEXAM: XR CHEST 1 VWCLINICAL INDICATION: fatige, leg swelling COMPARISON: 12/17/2018TECHNIQUE: Frontal view of the chest.FINDINGS:Left basilar atelectasis. No pleural effusion or pneumothorax.The cardiac silhouette is normal to mildly enlarged. No acute osseous abnormality.Degenerative changes of bothacromioclavicular joints. Widening of the right acromiohumeral interval.I MPRESSIONLeft basilar subsegmental atelectasis. No pulmonary edema.Preliminary Report Dictated by Resident: Torsten Quiñones MD., have reviewed this study and agree with theabove report.[facility] WITH [id number] 14:49:00 Test Item Value Reference Range Interpretation Comments WBC (test code = See_Comment [Automated 6690-2) message] The sy stem which generated this result transmitted reference range : 4.30 - 11.10 10*3/?L. The reference range was not used to interpret this result as normal/abnormal . RBC (test code = See_Comment [Automated 789-8) message] The sy stem which generated this result transmitted reference range : 3.93 - 5.25 10*6/?L. The reference range was not used to interpret this result as normal/abnormal . HGB (test code = 12.0 g/dL 11.6-15 718-7) HCT (test code = 37.7 % 35.7-45.2 4544-3) MCV (test code = 81.1 fL 80.6-95.5 787-2) MCH (test code = 25.8 pg 25.9-32.8 L 785-6) MCHC (test code = 31.8 g/dL 31.6-35.1 786-4) RDW-SD (test code = 47.4 fL 39-49.9 65836-9) RDW-CV (test code = 16.1 % 12-15.5 H 788-0) PLT (test code = See_Comment [Automated 777-3) message] The sy stem which generated this result transmitted reference range : 166 - 358 10*3/ ?L. The reference r milad was not used to interpret this result as normal/abnormal . MPV (test code = 10.9 fL 9.5-12.9 64795-7) NRBC/100 WBC (test See_Comment [Automat ed code = 2669366756) message] The system which generated this result transmitted reference range : 0.0 - 10.0 /100 WBCs. The refer ence range was not u sed to interpret th is result as normal/abnormal . NRBC x10^3 (test code <0.01 See_Comment [Auto mated = 6954446583) message] The s ystem which generated this result transmitted reference range : 10*3/?L. The reference range was not used to interpret this result as normal/abnormal . GRAN MAT (NEUT) % 67.3 % (test code = 770-8) IMM GRAN % (test code 0.50 % = 0225245430) LYMPH % (test code = 19.8 % 736-9) MONO % (test code = 8.6 % 5905-5) EOS % (test code = 3.3 % 713-8) BASO % (test code = 0.5 % 706-2) GRAN MAT x10^3(ANC) 5.47 10*3/uL 1.88-7.09 (test code = 5428893663) IMM GRAN x10^3 (test 0.04 10*3/uL 0-0.06 code = 6052393717) LYMPH x10^3 (test code 1.61 10*3/uL 1.32-3.29 = 731-0) MONO x10^3 (test code 0.70 10*3/uL 0.33-0.92 = 742-7) EOS x10^3 (test code = 0.27 10*3/uL 0.03-0.39 711-2) BASO x10^3 (test code 0.04 10*3/uL 0.01-0.07 = 704-7) Lab Interpretation Abnormal (test code = 56602-6) [facility]2020-01-20 14:21:00 Test Item Value Reference Range Interpretation Comments POCT GLU (test code = 6170494923) 233 mg/dL 70-110 H Lab Interpretation (test code = Abnormal 12333-0) [facility] CenterGLYCOSYLATED HEMOGLOBIN (A1C)2020-01-20 11:51:00 Test Item Value Reference Range Interpretation Comments HGB A1C (test code = 10.7 % 4-6 H 4548-4) BRITTANY (test code = BRITTANY) %A1C (NGSP) Interpretation (ADA)4.8-5.6 ? ? Normal or (Non-Diabetic Range)5.7-6.4 ? ? Increased Risk (Pre-Diabetic)>6.5 ?Diabetes Indicated Lab Interpretation Abnormal (test code = 20481-8) [facility] CenterCREATINE [id number] 09:54:00 Test Item Value Reference Range Interpretation Comments CK (test code = 1698585635) 33 U/L 33-194 Lab Interpretation (test code = Normal 67757-2) [facility] CenterTROPONIN [id number] 02:51:00 Test Item Value Reference Range Interpretation Comments TROPONIN I (test <0.012 See_Comment [Automated code = 0695882189) message] The system which generated this result transmitted reference range : <=0.034 ng/mL. The reference range was not used to interpr et this result as normal/abnormal . BRITTANY (test code = Equal or Less than BRITTANY) 0.034 ng/ml---Normal ?Note: Cardiac troponin begins to rise 3-4 hours after the onset of ischemia. Repeat in 4-6 hours if the sample was drawn within 3-4 hours of the onset of the symptom and found normal. Between 0.035 and 0.120 ng/mL--- Borderline. Questionable myocardial injury or necrosis ? ?Note: Serial measurement may be necessary to confirm or exclude the diagnosis of myocardial injury or necrosis; Clinical correlation (symptoms, EKGs, imaging studies, and others) required; Repeat in 4-6 hours if clinically indicated. ? Equal or Higher than 0.121 ng/mL---Abnormal. Myocardial Injury or Necrosis Likely ? Biotin has been reported to cause a negative bias, interpret results relative to patient's use of biotin. ? Lab Interpretation Normal (test code = 46186-7) [facility] CenterURINALYSIS2020-12-11 02:50:00 Test Item Value Reference Range Interpretation Comments APPEARANCE (test code = Hazy Clear A 4222649058) COLOR (test code = Yellow Yellow 0068892920) PH (test code = 4.8-8.0 1528652621) SP GRAVITY (test code = 1.003-1.030 9635667927) GLU U QUAL (test code = 150 mg/dL Normal A 5976878308) BLOOD (test code = Negative Negative 0639160242) KETONES (test code = Negative Negative 2969883939) PROTEIN (test code = Negative Negative 2887-8) UROBILIN (test code = Normal Normal 6247142636) BILIRUBIN (test code = Negative Negative 6246368745) NITRITE (test code = Negative Negative 1725818530) LEUK JEAN (test code = 500/uL Negative A 0563394326) RBC/HPF (test code = See_Comment [Autom ated message] 1377168613) The system whic h generated this result transmit teri reference range : 0 - 3 HPF. The refe rence range was not u sed to interpret th is result as normal/abnormal . WBC/HPF (test code = See_Comment H [Autom ated message] 9552556640) The system [employer] generated this result transmit teri reference range : 0 - 5 HPF. The refe rence range was not u sed to interpret th is result as normal/abnormal . BACTERIA (test code = Few Negative A 1704707588) SQ EPITH (test code = HPF 1508724547) Lab Interpretation (test Abnormal code = 08507-3) [facility] WITH [id number] 02:50:00 Test Item Value Reference Range Interpretation Comments WBC (test code = See_Comment [Automated 3490-2) message] The sy stem which generated this result transmitted reference range : 4.30 - 11.10 10*3/?L. The reference range was not used to interpret this result as normal/abnormal . RBC (test code = See_Comment [Automated 789-8) message] The sy stem which generated this result transmitted reference range : 3.93 - 5.25 10*6/?L. The reference range was not used to interpret this result as normal/abnormal . HGB (test code = 11.8 g/dL 11.6-15 718-7) HCT (test code = 37.4 % 35.7-45.2 4544-3) MCV (test code = 81.5 fL 80.6-95.5 787-2) MCH (test code = 25.7 pg 25.9-32.8 L 785-6) MCHC (test code = 31.6 g/dL 31.6-35.1 786-4) RDW-SD (test code = 47.4 fL 39-49.9 83148-5) RDW-CV (test code = 16.0 % 12-15.5 H 788-0) PLT (test code = See_Comment [Automated 777-3) message] The sy stem which generated this result transmitted reference range : 166 - 358 10*3/ ?L. The reference r milad was not used to interpret this result as normal/abnormal . MPV (test code = 10.7 fL 9.5-12.9 95739-3) NRBC/100 WBC (test See_Comment [Automat ed code = 8465101300) message] The system which generated this result transmitted reference range : 0.0 - 10.0 /100 WBCs. The refer ence range was not u sed to interpret th is result as normal/abnormal . NRBC x10^3 (test code <0.01 See_Comment [Auto mated = 7730560006) message] The s ystem which generated this result transmitted reference range : 10*3/?L. The reference range was not used to interpret this result as normal/abnormal . GRAN MAT (NEUT) % 65.3 % (test code = 770-8) IMM GRAN % (test code 0.90 % = 3682797218) LYMPH % (test code = 20.3 % 736-9) MONO % (test code = 9.2 % 5905-5) EOS % (test code = 3.7 % 713-8) BASO % (test code = 0.6 % 706-2) GRAN MAT x10^3(ANC) 4.56 10*3/uL 1.88-7.09 (test code = 7400666580) IMM GRAN x10^3 (test 0.06 10*3/uL 0-0.06 code = 2289864875) LYMPH x10^3 (test code 1.42 10*3/uL 1.32-3.29 = 731-0) MONO x10^3 (test code 0.64 10*3/uL 0.33-0.92 = 742-7) EOS x10^3 (test code = 0.26 10*3/uL 0.03-0.39 711-2) BASO x10^3 (test code 0.04 10*3/uL 0.01-0.07 = 704-7) Lab Interpretation Abnormal (test code = 08489-3) [facility] CenterN-[facility]MINAL [id number] 02:48:00 Test Item Value Reference Range Interpretation Comments NT-proBNP (test code 161 pg/mL See_Comment [Autom ated = 2214501883) message] The system which generated this result transmitted reference range : <=450. The reference range was not used to interpret this result as normal/abnormal . BRITTANY (test code = BRITTANY) Biotin has been reported to cause a negative bias, interpret results relative to patient's use of biotin. Lab Interpretation Normal (test code = 09527-9) [facility] CenterCOVID[facility] (ID NOW RAPID TESTING)2020-01-20 02:42:00 Test Item Value Reference Range Interpretation Comments SARS-CoV-2 Rapid ID NOW Not Detected Not Detected (test code = 93839-1) BRITTANY (test code = BRITTANY) ID NOW COVID-19 Assay is an isothermal nucleic acid amplification test intended for the qualitative detection of nucleic acid from SARS-CoV-2 viral RNA in nasopharyngeal ([employer]NAGER) specimens. It is used under Emergency Use Authorization (EUA) by FDA. The limit of detection (LOD) of the assay is 125 Genome Equivalents/mL. A positive result is indicative of the presence of SARS-CoV-2 RNA. ?Clinical correlation with patient history and other diagnostic information is necessary to determine patient infection status. A negative (Not Detected) result does not preclude SARS-CoV-2 infection. In patients with clinical symptoms and other tests that are consistent with SARS-CoV-2 infection, negative results should be treated as presumptive negative and a new specimen should be tested with alternative PCR molecular test. Invalid: Please collect a new specimen for repeat patient testing if clinically indicated. Lab Interpretation Normal (test code = 21381-4) [facility]2020-12-11 02:41:00 Test Item Value Reference Range Interpretation Comments MAGNESIUM (test code = 7340897687) 1.8 mg/dL 1.7-2.4 Lab Interpretation (test code = Normal 17340-9) [facility] CenterCOMP. METABOLIC PANEL (00772)2020-01-20 02:40:00 Test Item Value Reference Range Interpretation Comments NA (test code = 135 mmol/L 135-145 1892096014) K (test code = 4.0 mmol/L 3.5-5 1992943114) CL (test code = 96 mmol/L 98-108 L 0800785352) CO2 TOTAL (test code = 32 mmol/L 23-31 H 5940259108) AGAP (test code = 2-16 3663887550) BUN (test code = 14 mg/dL 7-23 5774596701) GLUCOSE (test code = 246 mg/dL 70-110 H 2575096976) CREATININE (test code = 0.72 mg/dL 0.5-1.04 7997177700) TOTAL BILI (test code = 0.5 mg/dL 0.1-1.6 7366306677) CALCIUM (test code = 9.2 mg/dL 8.6-10.6 7505634984) T PROTEIN (test code = 7.3 g/dL 6.3-8.2 2152758560) ALBUMIN (test code = 3.9 g/dL 3.5-5 4904243726) ALK PHOS (test code = 123 U/L 34-122 H 1049300536) ALTv (test code = 12 U/L 5-35 1742-6) AST(SGOT) (test code = 19 U/L 13-40 1290045722) eGFR Calculation mL/min/1.73m2 (Non-) (test code = 3640965201) eGFR Calculation mL/min/1.73m2 () (test code = 6316320092) BRITTANY (test code = BRITTANY) Association of Glomerular Filtration Rate (GFR) and Staging of Kidney Disease* + --+ --+ ------+| GFR (mL/min/1.73 m2) ?| With Kidney Damage ?| ?Without Kidney Damage+ --------+ --------+ +| ?>90 ?| ?Stage one ?| ? Normal ?+ ---+ ---+ -------+| ?60-89 ?| ?Stage two ?| ? Decreased GFR ? + --+ --+ ------+| ?30-59 ?| ?Stage three ?| ? Stage three ? + --+ --+ ------+| ?15-29 ?| ?Stage four ? | ? Stage four ?+ ---+ ---+ -------+| ?<15 (or dialysis) ? ?| ?Stage five ? | ? Stage five ?+ ---+ ---+ -------+ *Each stage assumes the associated GFR level has been in effect for at least three months. ?Stages 1 to 5, with or without kidney disease, indicate chronic kidney disease. Notes: Determination of stages one and two (with eGFR >59mL/min/1.73 m2) requires estimation of kidney damage for at least three months as defined by structural or functional abnormalities of the kidney, manifested by either:Pathological abnormalities or Markers of kidney damage (including abnormalities in the composition of the blood or urine or abnormalities in imaging tests). Lab Interpretation Abnormal (test code = 27032-1) [facility] CenterL[facility] Whole [id number] 02:22:00 Test Item Value Reference Range Interpretation Comments LACTIC ACID (test code = 1.20 mmol/L 7728862450) [facility]UR[facility]IS2019-[facility] 04:45:00 Test Item Value Reference Range Interpretation Comments APPEARANCE (test code = Clear Clear 7410646497) COLOR (test code = Yellow Yellow 9062683693) PH (test code = 4.8-8.0 A 8315536455) SP GRAVITY (test code = 1.003-1.030 6288812235) GLU U QUAL (test code = Negative Negative 3827491218) BLOOD (test code = Negative Negative 9923144837) KETONES (test code = Negative Negative 7863148257) PROTEIN (test code = Negative Negative 2887-8) UROBILIN (test code = 0.2 mg/dL See_Comment [Auto mated message] 3901931186) The system [employer] generated this result transmit teri reference range : 0-1.0 mg/dL. Th e reference range was not used to interpret this result as normal/abnormal . BILIRUBIN (test code = Negative Negative 6417864948) NITRITE (test code = Negative Negative 7160154858) LEUK JEAN (test code = Negative Negative 3249070082) RBC/HPF (test code = See_Comment [Autom ated message] 2583713511) The system [employer] generated this result transmit teri reference range : 0 - 3 HPF. The refe rence range was not u sed to interpret th is result as normal/abnormal . WBC/HPF (test code = See_Comment [Autom ated message] 5958586448) The system [employer] generated this result transmit teri reference range : 0 - 5 HPF. The refe rence range was not u sed to interpret th is result as normal/abnormal . BACTERIA (test code = Few Negative A 4330662591) SQ EPITH (test code = HPF 6512251980) Lab Interpretation (test Abnormal code = 37784-0) [facility] CenterXR [facility] 1 [id number] 04:13:37 Mild stable cardiomegaly. Suspected left-sided small pleural effusion. Joo Mendoza MD., have reviewed this study and agree with the abovereport.* * * * * * * * ORIGINAL REPORT * * * * * * * * EXAM: XR CHEST 1 VW HISTORY: SOB COMPARISON: Chest x-ray dated 09/21/2018. FINDINGS: The lungs are clear without a focal consolidation. Blunting of the leftcostophrenic sinus likely due to small pleural effusion. No pneumothorax..The aorta is slightly tortuous and aortic arch is mildly calcified. Theheart is slightly enlarged, unchanged. No acute osseous abnormality isidentified. [facility], Radiant Results Inft User - 10/13/2018 11:15 PM CDT* * * * * * * * ORIGINAL REPORT * * * * * * * *EXAM: XR CHEST 1 VWHISTORY: SOB COMPARISON: Chest x-ray dated 09/21/2018.FINDINGS:The lungs are clear without a focal consolidation. Blunting of the leftcostophrenic sinus likely due to small pleural effusion. No pneumothorax..The aorta is slightly tortuous and aortic arch is mildly calcified. Theheart is slightly enlarged, unchanged. No acute osseous abnormality isidentified.IMPRESSIONMild stable cardiomegaly.Suspected left-sided small pleural effusion.Rene Mendoza MD., have reviewed this study and agree with the abovereport.[facility] CenterTALI [id number] 04:07:00 Test Item Value Reference Range Interpretation Comments TROPONIN I (test <0.012 See_Comment [Automated code = 0070862120) message] The system which generated this result transmitted reference range : <=0.034 ng/mL. The reference range was not used to interpr et this result as normal/abnormal . BRITTANY (test code = Equal or Less than BRITTANY) 0.034 ng/ml---Normal?Not e: Cardiac troponin begins to rise 3-4 hours after the onset of ischemia. Repeat in 4-6 hours if the sample was drawn within 3-4 hours of the onset of the symptom and found normal. Between 0.035 and 0.120 ng/mL--- Borderline. Questionable myocardial injury or necrosis?Note: Serial measurement may be necessary to confirm or exclude the diagnosis of myocardial injury or necrosis; Clinical correlation (symptoms, EKGs, imaging studies, and others) required; Repeat in 4-6 hours if clinically indicated.? Equal or Higher than 0.121 ng/mL---Abnormal. Myocardial Injury or Necrosis Likely? Biotin has been reported to cause a negative bias, interpret results relative to patient's use of biotin.? ? Lab Interpretation Normal (test code = 56076-2) [facility] CenterN-TERMINAL [id number] 04:03:00 Test Item Value Reference Range Interpretation Comments NT-proBNP (test code 249 pg/mL See_Comment [Autom ated = 1048273669) message] The system which generated this result transmitted reference range : <=450. The reference range was not used to interpret this result as normal/abnormal . BRITTANY (test code = BRITTANY) Biotin has been reported to cause a negative bias, interpret results relative to patient's use of biotin. Lab Interpretation Normal (test code = 10750-5) [facility] CenterCOMP. METABOLIC PANEL (45729)2018-10-14 03:56:00 Test Item Value Reference Range Interpretation Comments NA (test code = 140 mmol/L 135-145 6221622564) K (test code = 4.9 mmol/L 3.5-5 1087147899) CL (test code = 100 mmol/L 98-108 7890023933) CO2 TOTAL (test code = 31 mmol/L 23-31 4388491351) AGAP (test code = 2-16 6664743507) BUN (test code = 11 mg/dL 7-23 0328642324) GLUCOSE (test code = 158 mg/dL 70-110 H 2698200898) CREATININE (test code = 0.54 mg/dL 0.5-1.04 8647778276) TOTAL BILI (test code = 0.5 mg/dL 0.1-1.7 6826850190) CALCIUM (test code = 8.9 mg/dL 8.6-10.6 3131340453) T PROTEIN (test code = 6.9 g/dL 6.3-8.2 4354322343) ALBUMIN (test code = 3.9 g/dL 3.5-5 7794575809) ALK PHOS (test code = 98 U/L 34-122 9205615596) ALT(SGPT) (test code = 12 U/L 9-51 7550433804) AST(SGOT) (test code = 35 U/L 13-40 2857505123) eGFR Calculation mL/min/1.73m2 (Non-) (test code = 4399523265) eGFR Calculation mL/min/1.73m2 () (test code = 8287747423) BRITTANY (test code = BRITTANY) Association of Glomerular Filtration Rate (GFR) and Staging of Kidney Disease*+ + + +| GFR (mL/min/1.73 m2)?| With Kidney Damage?|?Without Kidney Damage+ --------+ --------+ +|?>90?|?S tage one?|? Normal?+ ---------+ ---------+ +|?60-89? |?Stage two?|? Decreased GFR? + --+ --+ ------+|?30-59?|?Stage three?|? Stage three? + --+ --+ ------+|?15-29?|?Stage four? |? Stage four?+ -------+ -------+ +|?<15 (or dialysis)?|?Stage five? |? Stage five?+ -------+ -------+ +*Each stage assumes the associated GFR level has been in effect for at least three months.?Stages 1 to 5, with or without kidney disease, indicate chronic kidney disease.Notes: Determination of stages one and two (with eGFR >59mL/min/1.73 m2) requires estimation of kidney damage for at least three months as defined by structural or functional abnormalities of the kidney, manifested by either:Pathological abnormalities or Markers of kidney damage (including abnormalities in the composition of the blood or urine or abnormalities in imaging tests). Lab Interpretation Abnormal (test code = 63199-0) [facility] CenterLIPASE2019-09-05 03:56:00 Test Item Value Reference Range Interpretation Comments LIPASE (test code = 1724674826) 24 U/L 0-220 Lab Interpretation (test code = Normal 25033-9) [facility] CenterCB WITH [id number] 03:36:00 Test Item Value Reference Range Interpretation Comments WBC (test code = See_Comment [Automated 0236-2) message] The sy stem which generated this result transmitted reference range : 4.30 - 11.10 10*3/?L. The reference range was not used to interpret this result as normal/abnormal . RBC (test code = See_Comment [Automated 633-6) message] The sy stem which generated this result transmitted reference range : 3.93 - 5.25 10*6/?L. The reference range was not used to interpret this result as normal/abnormal . HGB (test code = 12.1 g/dL 11.6-15 718-7) HCT (test code = 39.5 % 35.7-45.2 4544-3) MCV (test code = 87.2 fL 80.6-95.5 787-2) MCH (test code = 26.7 pg 25.9-32.8 785-6) MCHC (test code = 30.6 g/dL 31.6-35.1 L 786-4) RDW-SD (test code = 45.8 fL 39-49.9 33444-1) RDW-CV (test code = 14.4 % 12-15.5 788-0) PLT (test code = See_Comment [Automated 777-3) message] The sy stem which generated this result transmitted reference range : 166 - 358 10*3/ ?L. The reference r milad was not used to interpret this result as normal/abnormal . MPV (test code = 10.6 fL 9.5-12.9 33704-7) NRBC/100 WBC (test See_Comment [Automat ed code = 9391352342) message] The system which generated this result transmitted reference range : 0.0 - 10.0 /100 WBCs. The refer ence range was not u sed to interpret th is result as normal/abnormal . NRBC x10^3 (test code <0.01 See_Comment [Auto mated = 7951499214) message] The s ystem which generated this result transmitted reference range : 10*3/?L. The reference range was not used to interpret this result as normal/abnormal . GRAN MAT (NEUT) % 62.7 % (test code = 770-8) IMM GRAN % (test code 0.70 % = 6539390588) LYMPH % (test code = 24.0 % 736-9) MONO % (test code = 8.1 % 5905-5) EOS % (test code = 4.1 % 713-8) BASO % (test code = 0.4 % 706-2) GRAN MAT x10^3(ANC) 4.69 10*3/uL 1.88-7.09 (test code = 6727742996) IMM GRAN x10^3 (test 0.05 10*3/uL 0-0.06 code = 4074323728) LYMPH x10^3 (test code 1.80 10*3/uL 1.32-3.29 = 731-0) MONO x10^3 (test code 0.61 10*3/uL 0.33-0.92 = 742-7) EOS x10^3 (test code = 0.31 10*3/uL 0.03-0.39 711-2) BASO x10^3 (test code 0.03 10*3/uL 0.01-0.07 = 704-7) Lab Interpretation Abnormal (test code = 45293-5) [facility] GLUCOSE (AUTOMATED)2018-09-25 17:07:00 Test Item Value Reference Range Interpretation Comments POCT GLU (test code = 9725531096) 185 mg/dL 70-110 H Lab Interpretation (test code = Abnormal 57643-8) [facility] CenterGLYCOSYLATED HEMOGLOBIN (A1C)2018-09-25 16:58:00 Test Item Value Reference Interpretation Comments Range HGB A1C (test code = See_Comment H [Autom ated 4548-4) message] The system which generated this result transmitted reference range : 4.0 - 6.0 % NGSP. The reference range was not used to interpret this result as normal/abnormal . BRITTANY (test code = %A1C (NGSP) BRITTAYN) Interpretation (ADA)4.8-5.6? Normal or (Non-Diabetic Range)5.7-6.4? Increased Risk (Pre-Diabetic)>6.5?D iabetes Indicated Lab Interpretation Abnormal (test code = 58461-9) [facility] GLUCOSE (AUTOMATED)2018-09-25 13:21:00 Test Item Value Reference Range Interpretation Comments POCT GLU (test code = 2880097672) 147 mg/dL 70-110 H Lab Interpretation (test code = Abnormal 22949-8) [facility] CenterURIC [id number] 12:33:00 Test Item Value Reference Range Interpretation Comments URIC ACID (test code = 6681117309) 7.2 mg/dL 2.9-6 H Lab Interpretation (test code = Abnormal 97820-0) [facility] (NA, K, CL, CO2, GLUCOSE, BUN, CREATININE, CA)2018-09-25 10:52:00 Test Item Value Reference Range Interpretation Comments NA (test code = 133 mmol/L 135-145 L 6753553743) K (test code = 3.4 mmol/L 3.5-5 L 4474907632) CL (test code = 88 mmol/L 98-108 L 6678888452) CO2 TOTAL (test code = 38 mmol/L 23-31 H 5725082692) AGAP (test code = 2-16 3414233122) BUN (test code = 19 mg/dL 7-23 7962443917) GLUCOSE (test code = 82 mg/dL 70-110 5375418377) CREATININE (test code = 0.79 mg/dL 0.5-1.04 4619485977) CALCIUM (test code = 9.6 mg/dL 8.6-10.6 9809338083) eGFR Calculation mL/min/1.73m2 (Non-) (test code = 7003936103) eGFR Calculation mL/min/1.73m2 () (test code = 0296489533) BRITTANY (test code = BRITTANY) Association of Glomerular Filtration Rate (GFR) and Staging of Kidney Disease*+ + + +| GFR (mL/min/1.73 m2)?| With Kidney Damage?|?Without Kidney Damage+ --------+ --------+ +|?>90?|?S tage one?|? Normal??+ + + +|?60-89 ?|?Stage two?|? Decreased GFR? + --+ --+ ------+|?30-59?|?Stage three?|? Stage three? + --+ --+ ------+|?15-29?|?Stage four? |? Stage four?+ -------+ -------+ +|?<15 (or dialysis)?|?Stage five? |? Stage five?+ -------+ -------+ +*Each stage assumes the associated GFR level has been in effect for at least three months.?Stages 1 to 5, with or without kidney disease, indicate chronic kidney disease.Notes: Determination of stages one and two (with eGFR >59mL/min/1.73 m2) requires estimation of kidney damage for at least three months as defined by structural or functional abnormalities of the kidney, manifested by either:Pathological abnormalities or Markers of kidney damage (including abnormalities in the composition of the blood or urine or abnormalities in imaging tests). Lab Interpretation Abnormal (test code = 54755-5) [facility] CenterMAGNESIUM2019-08-17 10:52:00 Test Item Value Reference Range Interpretation Comments MAGNESIUM (test code = 7736549893) 2.2 mg/dL 1.7-2.4 Lab Interpretation (test code = Normal 99983-0) [facility] GLUCOSE (AUTOMATED)2018-09-24 21:32:00 Test Item Value Reference Range Interpretation Comments POCT GLU (test code = 9322666429) 207 mg/dL 70-110 H Lab Interpretation (test code = Abnormal 41456-8) [facility] GLUCOSE (AUTOMATED)2018-09-24 16:40:00 Test Item Value Reference Range Interpretation Comments POCT GLU (test code = 0346200729) 180 mg/dL 70-110 H Lab Interpretation (test code = Abnormal 61140-5) [facility] GLUCOSE (AUTOMATED)2018-09-24 12:39:00 Test Item Value Reference Range Interpretation Comments POCT GLU (test code = 8862445983) 197 mg/dL 70-110 H Lab Interpretation (test code = Abnormal 31977-4) [facility] (NA, K, CL, CO2, GLUCOSE, BUN, CREATININE, CA)2018-09-24 09:35:00 Test Item Value Reference Range Interpretation Comments NA (test code = 136 mmol/L 135-145 5994808604) K (test code = 3.5 mmol/L 3.5-5 3099182591) CL (test code = 91 mmol/L 98-108 L 0754613787) CO2 TOTAL (test code = 36 mmol/L 23-31 H 5974994777) AGAP (test code = 2-16 4018252907) BUN (test code = 21 mg/dL 7-23 6437120308) GLUCOSE (test code = 216 mg/dL 70-110 H 3682437033) CREATININE (test code = 0.77 mg/dL 0.5-1.04 8504932389) CALCIUM (test code = 8.4 mg/dL 8.6-10.6 L 4598958507) eGFR Calculation mL/min/1.73m2 (Non-) (test code = 4111336910) eGFR Calculation mL/min/1.73m2 () (test code = 7163849661) BRITTANY (test code = BRITTANY) Association of Glomerular Filtration Rate (GFR) and Staging of Kidney Disease*+ + + +| GFR (mL/min/1.73 m2)?| With Kidney Damage?|?Without Kidney Damage+ --------+ --------+ +|?>90?|?S tage one?|? Normal?+ ---------+ ---------+ +|?60-89? |?Stage two?|? Decreased GFR? + --+ --+ ------+|?30-59?|?Stage three?|? Stage three? + --+ --+ ------+|?15-29?|?Stage four? |? Stage four?+ -------+ -------+ +|?<15 (or dialysis)?|?Stage five? |? Stage five?+ -------+ -------+ +*Each stage assumes the associated GFR level has been in effect for at least three months.?Stages 1 to 5, with or without kidney disease, indicate chronic kidney disease.Notes: Determination of stages one and two (with eGFR >59mL/min/1.73 m2) requires estimation of kidney damage for at least three months as defined by structural or functional abnormalities of the kidney, manifested by either:Pathological abnormalities or Markers of kidney damage (including abnormalities in the composition of the blood or urine or abnormalities in imaging tests). Lab Interpretation Abnormal (test code = 75190-1) [facility] CenterMAGN[facility]IUM2019-08-16 09:35:00 Test Item Value Reference Range Interpretation Comments MAGNESIUM (test code = 8663555582) 1.4 mg/dL 1.7-2.4 L Lab Interpretation (test code = Abnormal 85328-6) [facility] CenterURIC [id number] 09:35:00 Test Item Value Reference Range Interpretation Comments URIC ACID (test code = 2817957738) 6.7 mg/dL 2.9-6 H Lab Interpretation (test code = Abnormal 38170-4) [facility] CenterPHOSPHORUS2019-08-16 09:35:00 Test Item Value Reference Range Interpretation Comments PHOSPHORUS (test code = 4477799613) 3.8 mg/dL 2.5-5 Lab Interpretation (test code = Normal 14655-6) [facility] CenterPO[facility])2018-09-23 21:26:00 Test Item Value Reference Range Interpretation Comments POCT GLU (test code = 8299929748) 250 mg/dL 70-110 H Lab Interpretation (test code = Abnormal 03625-9) [facility] GLUCOSE (AUTOMATED)2018-09-23 17:04:00 Test Item Value Reference Range Interpretation Comments POCT GLU (test code = 2220499029) 221 mg/dL 70-110 H Lab Interpretation (test code = Abnormal 46236-7) [facility] GLUCOSE (AUTOMATED)2018-09-23 13:03:00 Test Item Value Reference Range Interpretation Comments POCT GLU (test code = 8880906223) 203 mg/dL 70-110 H Lab Interpretation (test code = Abnormal 00112-7) [facility] GLUCOSE (AUTOMATED)2018-09-22 21:39:00 Test Item Value Reference Range Interpretation Comments POCT GLU (test code = 8390211558) 267 mg/dL 70-110 H Lab Interpretation (test code = Abnormal 78386-2) [facility] GLUCOSE (AUTOMATED)2018-09-22 17:53:00 Test Item Value Reference Range Interpretation Comments POCT GLU (test code = 5508444816) 290 mg/dL 70-110 H Lab Interpretation (test code = Abnormal 53307-9) [facility] GLUCOSE (AUTOMATED)2018-09-22 13:37:00 Test Item Value Reference Range Interpretation Comments POCT GLU (test code = 0517544491) 145 mg/dL 70-110 H Lab Interpretation (test code = Abnormal 93472-5) [facility] WITH [id number] 12:08:00 Test Item Value Reference Range Interpretation Comments WBC (test code = See_Comment [Automated 6690-2) message] The sy stem which generated this result transmitted reference range : 4.30 - 11.10 10*3/?L. The reference range was not used to interpret this result as normal/abnormal . RBC (test code = See_Comment [Automated 719-8) message] The sy stem which generated this result transmitted reference range : 3.93 - 5.25 10*6/?L. The reference range was not used to interpret this result as normal/abnormal . HGB (test code = 12.3 g/dL 11.6-15 718-7) HCT (test code = 37.6 % 35.7-45.2 4544-3) MCV (test code = 84.5 fL 80.6-95.5 787-2) MCH (test code = 27.6 pg 25.9-32.8 785-6) MCHC (test code = 32.7 g/dL 31.6-35.1 786-4) RDW-SD (test code = 43.3 fL 39-49.9 24662-6) RDW-CV (test code = 14.2 % 12-15.5 788-0) PLT (test code = See_Comment [Automated 777-3) message] The sy stem which generated this result transmitted reference range : 166 - 358 10*3/ ?L. The reference r milad was not used to interpret this result as normal/abnormal . MPV (test code = 12.3 fL 9.5-12.9 74147-4) NRBC/100 WBC (test See_Comment [Automat ed code = 5926991836) message] The system which generated this result transmitted reference range : 0.0 - 10.0 /100 WBCs. The refer ence range was not u sed to interpret th is result as normal/abnormal . NRBC x10^3 (test code <0.01 See_Comment [Auto mated = 8931388088) message] The s ystem which generated this result transmitted reference range : 10*3/?L. The reference range was not used to interpret this result as normal/abnormal . GRAN MAT (NEUT) % 52.8 % (test code = 770-8) IMM GRAN % (test code 1.20 % = 3729242772) LYMPH % (test code = 29.9 % 736-9) MONO % (test code = 11.1 % 5905-5) EOS % (test code = 4.3 % 713-8) BASO % (test code = 0.7 % 706-2) GRAN MAT x10^3(ANC) 3.09 10*3/uL 1.88-7.09 (test code = 9585170260) IMM GRAN x10^3 (test 0.07 10*3/uL 0-0.06 H code = 0513420906) LYMPH x10^3 (test code 1.75 10*3/uL 1.32-3.29 = 731-0) MONO x10^3 (test code 0.65 10*3/uL 0.33-0.92 = 742-7) EOS x10^3 (test code = 0.25 10*3/uL 0.03-0.39 711-2) BASO x10^3 (test code 0.04 10*3/uL 0.01-0.07 = 704-7) Lab Interpretation Abnormal (test code = 06370-6) [facility] Metabolic Panel (NA, K, CL, CO2, GLUCOSE, BUN, CREATININE, CA)2018-09-22 11:37:00 Test Item Value Reference Range Interpretation Comments NA (test code = 139 mmol/L 135-145 4161892045) K (test code = 3.5 mmol/L 3.5-5 7422986911) CL (test code = 98 mmol/L 98-108 2829847508) CO2 TOTAL (test code = 33 mmol/L 23-31 H 5117175247) AGAP (test code = 2-16 3960154879) BUN (test code = 16 mg/dL 7-23 7776164944) GLUCOSE (test code = 156 mg/dL 70-110 H 0192009851) CREATININE (test code = 0.58 mg/dL 0.5-1.04 0739027742) CALCIUM (test code = 8.6 mg/dL 8.6-10.6 0104299336) eGFR Calculation mL/min/1.73m2 (Non-) (test code = 6800652135) eGFR Calculation mL/min/1.73m2 () (test code = 4589087889) BRITTANY (test code = BRITTANY) Association of Glomerular Filtration Rate (GFR) and Staging of Kidney Disease*+ + + +| GFR (mL/min/1.73 m2)?| With Kidney Damage?|?Without Kidney Damage+ --------+ --------+ +|?>90?|?S abbye one?|? Normal?+ ---------+ ---------+ +|?60-89? |?Stage two?|? Decreased GFR? + --+ --+ ------+|?30-59?|?Stage three?|? Stage three? + --+ --+ ------+|?15-29?|?Stage four? |? Stage four?+ -------+ -------+ +|?<15 (or dialysis)?|?Stage five? |? Stage five?+ -------+ -------+ +*Each stage assumes the associated GFR level has been in effect for at least three months.?Stages 1 to 5, with or without kidney disease, indicate chronic kidney disease.Notes: Determination of stages one and two (with eGFR >59mL/min/1.73 m2) requires estimation of kidney damage for at least three months as defined by structural or functional abnormalities of the kidney, manifested by either:Pathological abnormalities or Markers of kidney damage (including abnormalities in the composition of the blood or urine or abnormalities in imaging tests). Lab Interpretation Abnormal (test code = 12077-1) [facility] CenterMagnesium [id number] 11:37:00 Test Item Value Reference Range Interpretation Comments MAGNESIUM (test code = 7505148705) 1.6 mg/dL 1.7-2.4 L Lab Interpretation (test code = Abnormal 78801-3) [facility] CenterLavtic Acid Whole [id number] 08:39:00 Test Item Value Reference Range Interpretation Comments LACTIC ACID (test code = 1.58 mmol/L 0.5-2.2 2090764376) Lab Interpretation (test code = Normal 86842-1) [facility] CenterPOLA GLUCOSE (AUTOMATED)2018-09-22 01:07:00 Test Item Value Reference Range Interpretation Comments POCT GLU (test code = 0408604893) 299 mg/dL 70-110 H Lab Interpretation (test code = Abnormal 12993-2) [facility] CenterN-TERMINAL [id number] 22:33:00 Test Item Value Reference Range Interpretation Comments NT-proBNP (test code 179 pg/mL See_Comment [Autom ated = 8629155270) message] The system which generated this result transmitted reference range : <=450. The reference range was not used to interpret this result as normal/abnormal . BRITTANY (test code = BRITTANY) Biotin has been reported to cause a negative bias, interpret results relative to patient's use of biotin. Lab Interpretation Normal (test code = 93195-2) [facility]. METABOLIC PANEL (61559)2018-09-21 22:24:00 Test Item Value Reference Range Interpretation Comments NA (test code = 137 mmol/L 135-145 5960274218) K (test code = 3.7 mmol/L 3.5-5 7029004653) CL (test code = 96 mmol/L 98-108 L 0102542939) CO2 TOTAL (test code = 32 mmol/L 23-31 H 4801699279) AGAP (test code = 2-16 9175533951) BUN (test code = 15 mg/dL 7-23 5878286458) GLUCOSE (test code = 364 mg/dL 70-110 H 4097277574) CREATININE (test code = 0.62 mg/dL 0.5-1.04 7531505123) TOTAL BILI (test code = 0.4 mg/dL 0.1-1.0 5990428531) CALCIUM (test code = 8.2 mg/dL 8.6-10.6 L 0888478432) T PROTEIN (test code = 6.5 g/dL 6.3-8.2 8205620133) ALBUMIN (test code = 3.7 g/dL 3.5-5 0885118452) ALK PHOS (test code = 128 U/L 34-122 H 9236534567) ALT(SGPT) (test code = 10 U/L 9-51 4731207615) AST(SGOT) (test code = 18 U/L 13-40 2247587606) eGFR Calculation mL/min/1.73m2 (Non-) (test code = 0933614200) eGFR Calculation mL/min/1.73m2 () (test code = 6801005954) BRITTANY (test code = BRITTANY) Association of Glomerular Filtration Rate (GFR) and Staging of Kidney Disease*+ + + +| GFR (mL/min/1.73 m2)?| With Kidney Damage?|?Without Kidney Damage+ --------+ --------+ +|?>90?|?S tage one?|? Normal?+ ---------+ ---------+ +|?60-89? |?Stage two?|? Decreased GFR? + --+ --+ ------+|?30-59?|?Stage three?|? Stage three? + --+ --+ ------+|?15-29?|?Stage four? |? Stage four?+ -------+ -------+ +|?<15 (or dialysis)?|?Stage five? |? Stage five?+ -------+ -------+ +*Each stage assumes the associated GFR level has been in effect for at least three months.?Stages 1 to 5, with or without kidney disease, indicate chronic kidney disease.Notes: Determination of stages one and two (with eGFR >59mL/min/1.73 m2) requires estimation of kidney damage for at least three months as defined by structural or functional abnormalities of the kidney, manifested by either:Pathological abnormalities or Markers of kidney damage (including abnormalities in the composition of the blood or urine or abnormalities in imaging tests). Lab Interpretation Abnormal (test code = 76236-4) [facility] WITH [id number] 22:12:00 Test Item Value Reference Range Interpretation Comments WBC (test code = See_Comment [Automated message] 6690-2) The system [employer] generated this result transmitted ref erence range: 4.30 - 1 1.10 10*3/?L. The re ference range was not u sed to interpret this result as normal/abnor mal. RBC (test code = See_Comment [Automated message] 249-8) The system [employer] generated this result transmitted ref erence range: 3.93 - 5 .25 10*6/?L. The re ference range was not u sed to interpret this result as normal/abnor mal. HGB (test code = 12.7 g/dL 11.6-15 718-7) HCT (test code = 39.7 % 35.7-45.2 4544-3) MCV (test code = 86.1 fL 80.6-95.5 787-2) MCH (test code = 27.5 pg 25.9-32.8 785-6) MCHC (test code = 32.0 g/dL 31.6-35.1 786-4) RDW-SD (test code 43.5 fL 39-49.9 = 11082-6) RDW-CV (test code 14.1 % 12-15.5 = 788-0) PLT (test code = See_Comment [Automated message] 657-3) The system [employer] generated this result transmitted ref erence range: 166 - 35 8 10*3/?L. The re ference range was not u sed to interpret this result as normal/abnor mal. MPV (test code = 11.1 fL 9.5-12.9 22676-0) NRBC/100 WBC (test See_Comment [Automat ed message] code = [id number]) The [employer] which generated this result transmitted ref erence range: 0.0 - 10 .0 /100 WBCs. The refer ence range was not u sed to interpret this result as normal/abnor mal. NRBC x10^3 (test <0.01 See_Comment [Automated message] code = [id number]) The syste m which generated this result transmitted ref erence range: 10*3/?L. The reference range was not used to interpr et this result as normal/abnormal . GRAN MAT (NEUT) % 61.5 % (test code = 770-8) IMM GRAN % (test 0.70 % code = 2135226330) LYMPH % (test code 25.5 % = 736-9) MONO % (test code 8.7 % = 5905-5) EOS % (test code = 3.1 % 713-8) BASO % (test code 0.5 % = 706-2) GRAN MAT 3.63 10*3/uL 1.88-7.09 x10^3(ANC) (test code = 4140383467) IMM GRAN x10^3 0.04 10*3/uL 0-0.06 (test code = 3282032132) LYMPH x10^3 (test 1.50 10*3/uL 1.32-3.29 code = 731-0) MONO x10^3 (test 0.51 10*3/uL 0.33-0.92 code = 742-7) EOS x10^3 (test 0.18 10*3/uL 0.03-0.39 code = 711-2) BASO x10^3 (test 0.03 10*3/uL 0.01-0.07 code = 704-7) [facility] [id number] 22:11:00 Test Item Value Reference Range Interpretation Comments LACTIC ACID (test code = 2.27 mmol/L 0.5-2.2 H [id number]) Lab Interpretation (test code = Abnormal 16853-8) [facility] [id number] 20:53:58HISTORY: Lower leg edema. TECHNIQUE: Portable AP erect view of the chest is obtained. Comparison ismade with 07/19/2018 study. FINDINGS: No acute pneumonia. No pneumothorax or pleural effusion detected.Mild cardiomegaly noted with dilated central pulmonary arteries withoutfrank interstitial pulmonary edema. CONCLUSIONS: No signs of acute cardiopulmonary disease. [facility], Radiant Results Inft User - 09/21/2018 3:56 PM CDTHISTORY: Lower leg edema.TECHNIQUE: Portable AP erect view of the chest is obtained. Comparison ismade with 07/19/2018 study.FINDINGS: No acute pneumonia. No pneumothorax or pleural effusion detected.Mild cardiomegaly noted with dilated central pulmonary arteries withoutfrank interstitial pulmonary edema. CONCLUSIONS: No signs of acute cardiopulmonary disease.[facility]
== END 2020-12-12 14:32 | disposition home or self-care (01) ==
LOC: ER 11:24
DX: Z71.1 Person with feared health complaint in whom no diagnosis is made (principal)
CPT/HCPCS: 36415; 80053; 83605; 84145; 85025; 93970; 99251; 99283

== ENCOUNTER 2022-01-12 19:47 | Emergency (ER) | payer OTHER ==
--- OUTSIDE RECORDS SUMMARY | 2022-01-12 19:51 | XMS REPORT | Continuity of Care Document ---
:[address] [facility] t Address [address] [place] [address] Care Team Providers Name Role Phone Jamel LAURENT, Klaus Primary Care Physician Davide LAURENT, Sendil K.H. Attending Clinician BRIELLE OVIEDO Attending Clinician Unavailable AKIN CEVALLOS Attending Clinician Unavailable PATIENCE HANNA Attending Clinician Unavailable RYLAND BROWN Attending Clinician Unavailable Ryland Brown MD Attending Clinician Patience Beaulieu Attending Clinician Doctor Unassigned, Liberal Attending Clinician Unavailable ADALID Attending Clinician Unavailable Pob, [facility] Main Attending Clinician Unavailable Tate Sky MD Attending Clinician Gareth Renae MD Attending Clinician TATE SKY Attending Clinician Unavailable Abril Alejandro DO Attending Clinician Frankie Christine Attending Clinician NADIA AUGUSTINE K.HWai Attending Clinician Unavailable Deanna Chavez RN Attending Clinician Unavailable Sis Elias Attending Clinician Trung LAURENT, Harvinder Crain Attending Clinician Lang Wall DO Attending Clinician [phone] LANG WALL Attending Clinician Unavailable DEBRA ATWOOD Attending Clinician Unavailable Sun Shabazz RN Attending Clinician RINKU BERNARD Attending Clinician Unavailable Erick TALAVERA, Rinku Attending Clinician , [facility] Attending Clinician Unavailable HEBER CONTRERAS Attending Clinician Unavailable Heber Contreras MD Attending Clinician KELLEY ROYAL Attending Clinician Unavailable Nurse, [facility] Attending Clinician Unavailable Gregg Hammond Attending Clinician GREGG VENEGAS Attending Clinician Unavailable MIGUEL DONNELLY Attending Clinician Unavailable Talon-Mbayo_A_AH Attending Clinician Unavailable Basilio Gonzalez MD Attending Clinician Joanie Shine RN Attending Clinician Shari Singh Attending Clinician Truong Montemayor Attending Clinician [facility] Attending Clinician Unavailable MICHELLE_T Admitting Clinician Unavailable Trung LAURENT, Harvinder Crain Admitting Clinician HARVINDER ZHANG Admitting Clinician Unavailable RINKU BERNARD Admitting Clinician Unavailable HEBER CONTRERAS Admitting Clinician Unavailable Heber Contreras MD Admitting Clinician BRIAN YBARRA Admitting Clinician Unavailable Talon-Mbayo_A_AH Admitting Clinician Unavailable Truong Montemayor Admitting Clinician Payers Payer Name Policy Type Policy Number Effective Date Expiration Date Apolinar vanegas WELLCARE/WELLCARE [id number] 2021 [place] 00:00:00 [place]CARE [place] [id number] 2018 PLUS CLASSIC/VALUE 00:00:00 [place]: [id number] [employer] [place] OF [place] - [id number] 2019 [place] 00:00:00 (MEDICARE REPLACEMENT/ADVANT AGE - HMO) Problems Condition Condition Condition Status Onset Resolution Last Treating Co mments Source Name Details Category Date Date Treatment Clinician Date Anxiety Anxiety Disease Active Univers and and 2-18 [place]y [place] [facility] COVID-19 COVID-19 Disease Active Unive rs virus virus 3-12 ity of infection infection 00:00: [facility] Dyslipidem Dyslipidem Disease Active 2020- U nivers ia ia 2-13 ity of 00:00: [place] [facility] Lymphedema Lymphedema Disease Active 2020- U nivers 2-13 ity of 00:00: [place] [facility] Stage 3 Stage 3 Disease Active 2019- Univers chronic chronic 2-13 ity of kidney kidney 00:00: [place] disease disease 00 Medical Branch Cellulitis Cellulitis Disease Active 2020-0 M ethodi of left of left 3-01 st lower leg lower leg 00:00: [facility] l Cellulitis Cellulitis Disease Active 2020-0 M ethodi of lower of lower 2-28 st extremity extremity 00:00: [facility] 00 l CHF CHF Disease Active 2018- Univers exacerbati exacerbati 1-08 it y of on on 00:00: [place] 00 Medical Branch Bilateral Bilateral Disease Active 2018- Uni vers lower leg lower leg 8-13 ity of cellulitis cellulitis [place] [facility] [place] Lower Lower Disease Active 2019-0 Univers extremity extremity 4-23 ity of pain pain 00:00: [place] 00 Medical Branch Coronary Coronary Disease Active Unive rs artery artery 4-23 ity of disease disease 00:00: [place] involving involving 00 Medi amarilis [place] Branch coronary coronary artery of artery of [place] heart heart without without angina angina pectoris pectoris Acute on Acute on Disease Active Unive rs chronic chronic 06-01 ity of diastolic diastolic 00:00: Mayda bear congestive congestive 00 Me dical heart heart Branch failure failure Morbid Morbid Disease Active Univers obesity obesity 06-01 ity of 00:00: 00 Medical Branch Type 2 Type 2 Disease Active Univers diabetes diabetes 06-01 ity of mellitus mellitus 00:00: [place] without without 00 Medical complicati complicati Br anch on, on, without without long-term long-term current current use of use of insulin insulin Essential Essential Disease Active Uni vers hypertensi hypertensi 06-01 it y of on on 00:00: [place] 00 Medical Branch Cellulitis Cellulitis Disease Active U nivers 05-31 ity of 00:00: [place] 00 Medical Branch Bilateral Bilateral Disease Active Uni vers leg edema leg edema 05-31 ity of 00:00: [place] 00 Medical Branch Allergies, Adverse Reactions, Alerts Allergy Allergy Status Severity Reaction(s) Onset Inactive Treating Comm ents Source Name Type Date Date Clinician Predniso Propensi Active Other (See Blood Me thodi ne ty to Comments) [address] adverse 00:00: spikes Hospita reaction 00 l s to drug Iodine Propensi Active GI Nausea, Methodi ty to Intolerance - vomiting st adverse 00:00: Hospita reaction 00 l s to drug IODINE DRUG Active N/V Univers INGREDI 4- ity of 00:00: [place] 00 Medical Branch Iodine Propensi Active Nausea Univers ty to and/or 4-22 ity of adverse Vomiting 00:00: [place] reaction 00 Medical s Branch Social History Social Habit Start Date Stop Date Quantity Comments Source History SDOH [facility] Std Hospital Drinks History SDOH [facility] Alcohol Binge Hospital History SDOH [facility] Alcohol Comment Hospital Exposure to Yes University of SARS-CoV-2 [place] [facility] (event) Branch History of Current smoker University of tobacco use [facility] Branch Tobacco use and 2019-04-08 2019-04-08 Smokeless tobacco Me thodist exposure 00:00:00 00:00:00 non-user Hospital Alcohol intake 2019-04-08 2019-04-08 Lifetime [facility] 00:00:00 00:00:00 non-drinker Hospital (finding) History SDOH 2019-04-08 2019-04-08 1 [facility] Alcohol Frequency 00:00:00 00:00:00 Hospita l Sex [birth year] At [birth year] [facility] 00:00:00 00:00:00 Hospital Smoking Status Start Date Stop Date Source Ex-smoker 2018-05-31 00:00:00 2018-05-31 00:00:00 [facility] Medical Branch Medications Ordered Filled Start Stop Current Ordering Indication Dosage Frequency Signature Comments Components Source Medication Medication Date Date Medication? Clinician (SIG) Name Name CARVEDILOL 2021- No [id number] 3.125mg TAKE 1 Univers 3.125 mg -01-06 TABLET BY ity o f tablet 00:00: 05:59 MOUTH 2 [place] 00 :00 (TWO) Medical TIMES Branch DAILY FOR 90 DAYS. HYDROcodone Yes [id number] 1{tbl} Take 1 Un carlos manuel -acetaminop 2-18 tablet by ity of hen ([employer]) 13:32: mouth [place] 7.5-325 mg 17 every 8 Medica l per tablet (eight) Branch hours as needed for Pain. Indication s: chronic pain HYDROcodone Yes [id number] 1{tbl} Take 1 Un carlos manuel -acetaminop 2-18 tablet by ity of hen ([employer]) 13:32: mouth [place] 7.5-325 mg 17 every 8 Medica l per tablet (eight) Branch hours as needed for Pain. Indication s: chronic pain clindamycin 2021- No [id number] 300mg Take 1 Univers 300 mg 2-18 04-09 [id number] capsule by ity of capsule 00:00: 05:59 mouth 4 [place] 00 :00 (four) Medical times Branch daily for 10 days. HYDROcodone Yes [id number] 1{tbl} Take 1 Un carlos manuel -acetaminop 3-18 tablet by ity of hen ([employer]) 20:35: mouth [place] 7.5-325 mg 57 every 8 Medica l per tablet (eight) Branch hours as needed for Pain. Indication s: chronic pain sennosides- Yes [id number] 1{tbl} Take 1 Univers docusate 3-18 tablet by ity of sodium 00:00: mouth [place] 8.6-50 mg 00 daily. Medical per tablet Branch KCL 20 mEq Yes [id number] 40meq Take 2 Univers tablet 3-18 [id number] tablets by ity o f 00:00: mouth [place] 00 daily. Medical Branch Insulin Asp Yes [id number] 30U inject 30 Univers Prt-Insulin 3-18 [id number] Units ity o f Aspart 00:00: under the [place] (NOVOLOG 00 skin 2 Medical MIX 70-30) [...] this record to your PCP). insulin Yes [id number] 5U inject 5 Univers aspart 3-18 [id number] Units ity of U-100 00:00: under the [place] (NOVOLOG 00 skin 3 Medical FLEXPEN (three) [...] snack/drin k juice and recheck. metFORMIN Yes [id number] 500mg Take 1 Univers 500 mg 3-18 [id number] tablet by ity of tablet 00:00: mouth 2 [place] (two) Medical times Branch daily with meals. bumetanide Yes [id number] 3mg Take 3 Univers 1 mg tablet 3-18 [id number] tablets by ity of 00:00: mouth 2 [place] (two) Medical times Branch daily. spironolact Yes [id number] 25mg Take 1 Univers one 25 mg 3-18 [id number] tablet by ity of tablet 00:00: mouth 2 [place] (two) Medical times Branch daily. albuterol Yes [id number] 2{puff} Inhale 2 Univers 90 3-18 [id number] Puffs ity of mcg/actuati 00:00: every 6 Rj as on inhaler 00 (six) Medical hours as Branch needed for Wheezing, Shortness of Breath, Bronchospa sm or Chest tightness. simvastatin Yes [id number] 40mg Take 1 Univers 40 mg 3-18 [id number] tablet by ity of tablet 00:00: mouth [place] 00 daily. Medical Branch Magnesium Yes [id number] 400mg Take 400 Univers Oxide 420 3-18 mg by ity of mg Tab 00:00: mouth 2 [place] 00 (two) Medical times Branch daily. sennosides- Yes [id number] 1{tbl} Take 1 Univers docusate 3-18 tablet by ity of sodium 00:00: mouth [place] 8.6-50 mg 00 daily. Medical per tablet Branch KCL 20 mEq Yes [id number] 40meq Take 2 Univers tablet 3-18 [id number] tablets by ity o f 00:00: mouth [place] 00 daily. Medical Branch Insulin Asp Yes [id number] 30U inject 30 Univers Prt-Insulin 3-18 [id number] Units ity o f Aspart 00:00: under the [place] (NOVOLOG 00 skin 2 Medical MIX 70-30) [...] this record to your PCP). insulin Yes [id number] 5U inject 5 Univers aspart 3-18 [id number] Units ity of U-100 00:00: under the [place] (NOVOLOG 00 skin 3 Medical FLEXPEN (three) [...] eat a snack/drin k juice and recheck. bumetanide Yes [id number] 3mg Take 3 Univers 1 mg tablet 3-18 [id number] tablets by ity of 00:00: mouth 2 [place] (two) Medical times Branch daily. spironolact Yes [id number] 25mg Take 1 Univers one 25 mg 3-18 [id number] tablet by ity of tablet 00:00: mouth 2 [place] (two) Medical times Branch daily. albuterol Yes [id number] 2{puff} Inhale 2 Univers 90 3-18 [id number] Puffs ity of mcg/actuati 00:00: every 6 Rj as on inhaler 00 (six) Medical hours as Branch needed for Wheezing, Shortness of Breath, Bronchospa sm or Chest tightness. simvastatin Yes [id number] 40mg Take 1 Univers 40 mg 3-18 [id number] tablet by ity of tablet 00:00: mouth [place] 00 daily. Medical Branch sennosides- Yes [id number] 1{tbl} Take 1 Univers docusate 3-18 tablet by ity of sodium 00:00: mouth [place] 8.6-50 mg 00 daily. Medical per tablet Branch KCL 20 mEq Yes [id number] 40meq Take 2 Univers tablet 3-18 [id number] tablets by ity o f 00:00: mouth [place] 00 daily. Medical Branch Insulin Asp Yes [id number] 30U inject 30 Univers Prt-Insulin 3-18 [id number] Units ity o f Aspart 00:00: under [...] this record to your PCP). insulin Yes [id number] 5U inject 5 Univers aspart 3-18 [id number] Units ity of U-100 00:00: under the [place] (NOVOLOG 00 skin 3 Medical FLEXPEN (three) [...] eat a snack/drin k juice and recheck. bumetanide Yes [id number] 3mg Take 3 Univers 1 mg tablet 3-18 [id number] tablets by ity of 00:00: mouth 2 [place] (two) Medical times Branch daily. spironolact Yes [id number] 25mg Take 1 Univers one 25 mg 3-18 [id number] tablet by ity of tablet 00:00: mouth 2 [place] 00 (two) Medical times Branch daily. albuterol Yes [id number] 2{puff} Inhale 2 Univers 90 3-18 [id number] Puffs ity of mcg/actuati 00:00: every 6 Rj as on inhaler 00 (six) Medical hours as Branch needed for Wheezing, Shortness of Breath, Bronchospa sm or Chest tightness. simvastatin Yes [id number] 40mg Take 1 Univers 40 mg 3-18 [id number] tablet by ity of tablet 00:00: mouth [place] 00 daily. Medical Branch metFORMIN 2020-0 2022- No [id number] 500mg Take 1 Univers 500 mg 3-18 02-18 [id number] tablet by ity o f tablet 00:00: 00:00 mouth 2 [place] 00 :00 (two) Medical times Branch daily with meals. Magnesium 2021- No [id number] 400mg Take 400 Univers Oxide 420 3-18 02-18 mg by ity of mg Tab 00:00: 00:00 mouth 2 [place] 00 :00 (two) Medical times Branch daily. nystatin-tr 2020-0 Yes Apply to Un carlos manuel iamcinolone 2-25 area(s) 2 ity of cream 00:00: (two) [place] 00 times Medical daily. Branch nystatin-tr 2020-0 Yes Apply to Un carlos manuel iamcinolone 2-25 area(s) 2 ity of cream 00:00: (two) [place] 00 times Medical daily. Branch nystatin-tr 2020-0 Yes Apply to Un carlos manuel iamcinolone 2-25 area(s) 2 ity of cream 00:00: (two) [place] 00 times Medical daily. Branch nystatin 2020-0 2021- No Apply to [facility] ers 100,000 2-25 02-26 area(s) 4 ity of unit/gram 00:00: 05:59 (four) [place] powder 00 :00 times Medical daily. Branch nystatin 2020-0 2021- No Apply to [facility] ers 100,000 2-25 02-26 area(s) 4 ity of unit/gram 00:00: 05:59 (four) [place] powder 00 :00 times Medical daily. Branch hydrOXYzine 2020-0 Yes 25mg Take 25 mg Univers 25 mg 9-04 by mouth 3 ity of capsule 00:00: (three) [place] 00 times Medical daily as Branch needed. hydrOXYzine 2020-0 Yes 25mg Take 25 mg Univers 25 mg 9-04 by mouth 3 ity of capsule 00:00: (three) [place] 00 times Medical daily as Branch needed. hydrOXYzine 2020-0 Yes 25mg Take 25 mg Univers 25 mg 9-04 by mouth 3 ity of capsule 00:00: (three) [place] 00 times Medical daily as Branch needed. potassium 2020-0 Yes Q.[id number] Take by Methodi chloride 3-[id number] (KAYCIEL) 16:24: 3D (three) Hospi ta 20 mEq/15 14 times a l mL solution day. metOLazone 2020-0 Yes 5mg Take 5 mg Me thodi (ZAROXOLYN) 3-[address] 5 MG tablet 16:24: Thursday and Hospita 14 thursday l BUMETanide 2020-0 Yes 2mg Q.5D Take 2 mg Me thodi (BUMEX) 2 3-[address] MG tablet 16:24: (two) Hospita 14 times a l day. spironolact 2020-0 Yes 25mg Q.5D Take 25 mg Methodi one 3-[address] (ALDACTONE) 16:24: (two) Hospi ta 25 MG 14 times a l tablet day. ALPRAZolam 2020-0 Yes .5mg Q.[id number] Take 0.5 Methodi (XANAX) 0.5 3-06 [id number] mg by s t MG tablet 16:24: 3D mouth 3 Hospi ta 14 (three) l times a day. HYDROcodone 2020-0 Yes [id number] 1{tbl} Q8H Take 1 M ethodi -acetaminop 3-[address] hen (NORCO) 16:24: mouth Hospi ta 7.5-325 mg 14 every 8 l per tablet (eight) hours as needed for moderate pain .acute pain. insulin asp 2020-0 Yes 70U Q.5D Inject 70 M ethodi prt-insulin 3-[address] ASPART 16:24: under the Hospit a (NovoLOG 14 skin 2 l 70/30) 100 (two) unit/mL times a (70-30) day before injection meals. magnesium 2020-0 Yes 400mg QD Take 400 Met hodi oxide 3-[address] (MAG-OX) 16:24: mouth Hospita 400 mg 14 daily. l (241.3 mg magnesium) tablet albuterol 2020-0 Yes 2{puff} Q24H Inhale 2 M ethodi (PROAIR 3-[address] HFA) 90 16:24: daily as Hospit a mcg/actuati 14 needed for l on inhaler wheezing. Immunizations Ordered Filled Immunization Date Status Comments [facility] e Immunization Name Name Td 2020-10-21 Completed University 00:00:00 [facility] Td 2020-10-21 Completed University 00:00:00 [facility] Td 2020-10-21 Completed University 00:00:00 [place] [facility] Vital Signs Vital Name Observation Time Observation Value Comments Source Systolic blood 2021-03-29 22:20:00 123 mm[Hg] Univer sity of pressure [facility] Branch Diastolic blood 2021-03-29 22:20:00 60 mm[Hg] Unive rsity of pressure [facility] Heart rate 2021-03-29 22:20:00 68 /min Universi ty of [place] [facility] Respiratory rate 2021-03-29 22:20:00 20 /min [facility] Oxygen saturation in 2021-03-29 22:20:00 93 /min University of Arterial blood by [facility] [place] [facility] Pulse oximetry Branch Body temperature 2021-03-29 19:46:25 36.61 Sydnee [facility] Body weight 2021-03-29 19:27:00 102.059 kg Universi ty of [facility] BMI 2021-03-29 19:27:00 39.86 kg/m2 Universi ty [facility] Branch Systolic blood 2021-03-29 17:01:00 121 mm[Hg] Univer sity of pressure [facility] Diastolic blood 2021-03-29 17:01:00 64 mm[Hg] Unive rsity of [facility] Branch Heart rate 2021-03-29 17:01:00 70 /min Universi ty of [facility] Body temperature 2021-03-29 17:01:00 37.11 Sydnee [facility] Body height 2021-03-29 17:01:00 160 cm Universi ty of [place] [facility] [place] Body weight 2021-03-29 17:01:00 102.059 kg Universi ty [facility] Medical Branch BMI 2021-03-29 17:01:00 39.86 kg/m2 Universi ty [facility] Branch Oxygen saturation in 2021-03-29 17:01:00 93 /min University of Arterial blood by [facility] [place] [facility] Pulse oximetry Branch Procedures Procedure Date / Time Performing Clinician Source Performed DUPLEX VENOUS LEGS 2021-03-29 20:53:27 Ryland Brown [facility] BILATERAL - BY VASCULAR Medical Branch LAB COVID-19 (ID NOW RAPID 2021-03-29 19:38:00 Ryland Brown [facility] TESTING) Medical Branch TROPONIN I 2021-03-29 19:36:00 Brown, Ryland [facility] COMP. METABOLIC PANEL 2021-03-29 19:36:00 Ryland Brown [facility] ([id number]) Medical [place] CBC WITH DIFF 2021-03-29 19:36:00 Ryland Brown [facility] PROTHROMBIN TIME / INR 2021-03-29 19:36:00 Ryland Brown [facility] ACTIVATED PARTIAL 2021-03-29 19:36:00 Ryland Brown [facility] THRMPLAS [facility] N-TERMINAL PRO-BNP 2021-03-29 19:36:00 Ryland Brown [facility] NOTICE OF PRIVACY 2021-03-29 19:12:05 Doctor Unassigned, No [facility] PRACTICES Name [facility] Plan of Care Planned Activity Planned Date Details Comments Source Future Scheduled 2021-01-24 COVID-19 VACCINE (1) Met [facility] Test 09:41:34 [code = COVID-19 VACCINE (1)] Future Scheduled 2021-01-24 65+ PNEUMOCOCCAL Methodi Hospital Test 09:41:34 VACCINE (1 of 4 - PCV13) [code = 65+ PNEUMOCOCCAL VACCINE (1 of 4 - PCV13)] Future Scheduled 2021-01-24 Hepatitis C screening [facility] [place] [facility] Test 09:41:34 (procedure) [code = 637255327] Future Scheduled 2021-01-24 SHINGLES [facility]INES (#[facility]) [facility] 09:41:34 [code = SHINGLES VACCINES (#1)] Future Scheduled 2021-01-24 INFLUENZA VACCINE Method ist Hospital Test 09:41:34 [code = INFLUENZA VACCINE] Encounters Start End Encounter Admission Attending Care Care Encounter Source Date/Time Date/Time Type Type Clinicians Facility Department ID 2021-09-18 Outpatient [facility] [id number] [place] 06:40:08 [id number] [facility] 2021-09-17 Outpatient [facility] [id number] [place] 06:00:57 [id number] [facility] 2020-12-10 Emergency [facility] [id number] Univers 22:04:02 [facility] 2020-12-09 Emergency [facility] [id number] Univers 10:12:41 [facility] 2020-12-09 Emergency [facility] [id number] Univers 05:40:38 ity of [facility] 2020-12-08 Emergency [facility] [id number] Univers 22:16:15 ity [facility] 2021-10-05 2021-10-05 [facility] [id number] Univers 00:00:00 00:00:00 Nadia HAWKINS [id number] ity [facility] [id number] [facility] [id number] Nh dical [facility] 059 [facility] 2021-09-15 2021-09-15 Outpatient COTTON, [facility] [id number] [place] 10:00:00 10:00:00 [facility] 2021-09-12 2021-09-12 Outpatient MART, [facility] [id number] [place] 10:30:00 10:30:00 [facility] 2021-04-08 2021-04-08 [facility] [id number] Univers 14:30:00 14:30:00 PATIENCE [facility] 2021-04-05 2021-04-05 [facility] [id number] Univers 16:00:00 16:00:00 PATIENCE [facility] 2021-03-29 2021-03-29 Emergency [facility] [id number] Univers 13:14:00 16:30:00 RYLAND [facility] 2021-03-29 2021-03-29 Emergency [facility] [id number] Univers 13:14:00 16:30:00 Ryland HAWKINS [id number] i ty [facility] [id number] [facility] s SHERIDAN [id number] [facility] 084 [place] 2021-03-29 2021-03-29 Emergency [facility] [id number] Univers 13:14:00 13:14:00 RYLAND [facility] 2021-03-29 2021-03-29 Office [facility] [id number] Univers 11:00:00 11:58:19 Visit Patience BARNHART [id number] it y of [facility] [id number] Rj as JUAN MANUEL?BLEA [phone] Nh jaylalokesh MARQUEZEY [address] [place] MEDICAL OFF[facility] 2021-03-29 2021-03-29 Outpatient Paresh HANNA [facility] [id number] Univers 11:00:00 11:58:19 PATIENCE grayson [facility] 2021-03-29 2021-03-29 Outpatient [facility] [id number] Univers 11:00:00 11:00:00 PATIENCE grayson [facility] 2021-03-29 2021-03-29 Orders Doctor TALA [id number] Univers 00:00:00 00:00:00 Only Unassigned, DONNA [id number] [facility]y of [facility] [id number] Rj as [id number] [address] 2020-11-20 2020-11-20 Outpatient KOVACEV_T [facility] [place] 11:31:00 11:31:00 1012 Commun i ty Hospita l Clinics 2020-11-09 2020-11-09 Web Analytics Specialist Angie, Adc Lab Main [facility] [id number] Univers 08:35:14 08:50:14 Visit AnjelgonzalesTate posadas Hillary [id number] ity of Gareth Renae [id number] [facility] [id number] Nh jaylalokesh [facility] 353 Branch [facility] 2020-11-09 2020-11-09 Outpatient Paresh [facility] [id number] Univers 08:30:00 08:30:00 TATE grayson [facility] 2020-11-09 2020-11-09 Orders Doctor TALA [id number] Univers 00:00:00 00:00:00 Only Unassigned, DONNA [id number] [facility]y of [facility] [id number] Rj as [id number] [address] 2020-10-21 2020-10-21 Emergency [facility] [id number] Univers 07:53:00 09:18:00 Abril Hawkins [id number] ity of [place] [id number] [place] [facility] [id number] [address] 2020-10-03 2020-10-03 Refmushtaq [facility] [id number] Univers 00:00:00 00:00:00 Nadia Hawkins [id number] ity of [place] [id number] [facility] [id number] Nh dical [facility] 2020-07-03 2020-07-03 Outpatient [facility] [id number] Univers 00:00:00 00:00:00 ity of [facility] 2020-06-29 2020-06-29 Outpatient [facility] [id number] Univers 00:00:00 00:00:00 ity of [facility] [facility] 2020-06-29 2020-06-29 Orders Doctor TALA 1.2.840.114 [id number] Univers 00:00:00 00:00:00 Only Unassigned, DONNA 350.1.13.10 [facility] of [facility] 4.2.7.2.686 Rj as [phone] [address] 2020-05-10 2020-05-10 Emergency Jarred, Frankie [facility] 1.2.840.114 [id number] Univers 17:37:00 21:37:00 Teresa Hawkins 350.1.13.10 i ty of [place].2.[place] [facility] [phone] [address] 2020-05-10 2020-05-10 Orders Doctor EDGAR 1.2.840.114 [id number] Univers 00:00:00 00:00:00 Only Unassigned, DONNA 350.1.13.10 [facility] 4.2.7.2.686 Rj as [phone] [address] 2020-05-07 2020-05-07 Outpatient COH COH PBXFGBC QAT COH 00:00:00 00:00:00 [id number] 2020-04-30 2020-04-30 Outpatient R DAVIDE, [facility] [id number] Univers 14:30:00 14:30:00 SENDIL ity of [facility] 2020-04-27 2020-04-27 Transition Manju Chavez 1.2.840.114 [id number] Univers 00:00:00 00:00:00 of Care Deanna Pérezy 350.1.13.10 i ty [place] [phone] [facility] [address] 2020-04-20 2020-04-26 [facility] Sis Cowan 1.2.840. 114 [id number] Univers 15:22:00 20:35:00 Encounter Harvinder Zhang 350.1.13. 10 ity of [facility] 4.2.7.2. 686 [place] [phone] [facility] [address] 2020-04-20 2020-04-26 Inpatient X [facility] EBONIE [id number] Univers 15:22:00 20:35:00 renuka RUSSELL of [facility] 2020-04-23 2020-04-23 Outpatient R ANGELIC, [facility] [id number] Univers 14:00:00 14:00:00 DEBRA ity of [facility] 2020-03-29 2020-03-29 Orders Doctor EDGAR 1.2.840.114 [id number] Univers 00:00:00 00:00:00 Only Unassigned, DONNA 350.1.13.10 ity of [place] [facility] 4.2.7.2.686 Rj as [phone] [facility] [address] 2020-03-21 2020-03-21 Transition Manju Shabazz 1.2.840.114 [id number] Univers 00:00:00 00:00:00 of Care Sun Leyva 350.1.13.10 [place] [phone] [facility] [address] 2020-03-16 2020-03-16 [facility] 1.2.840.114 [id number] Univers 14:18:36 15:20:44 Visit Nadia Hawkins 350.1.13.10 [place] [phone] Nh dical nal 059 [facility] 2020-03-16 2020-03-16 [facility] [id number] Univers 14:30:00 14:30:00 SENDIL ity [facility] 2020-03-05 2020-03-05 Emergency X [facility] ERT [id number] Univers 14:27:00 19:34:00 SHINTA ity [facility] 2020-03-05 2020-03-05 Emergency [facility] 1.2.840.114 [id number] Univers 14:27:00 19:34:00 Rinku Hawkins 350.1.13.10 i ty of [place] [phone] [facility] [address] [place] 2020-03-02 2020-03-02 [facility] [id number] Univers 11:00:00 11:00:00 SENDIL ity [facility] 2020-03-02 2020-03-02 Web Analytics Specialist 2, Adc Lab [facility] 1.2.840.114 [id number] Univers 10:11:56 10:26:56 Visit Nadia Augustine 350.1.13. 10 [place] [phone] Nh dical nal 353 [facility] 2020-02-17 2020-02-17 Office [facility] 1.2.840.114 [id number] Univers 14:42:25 15:49:10 Visit Nadia Hawkins 350.1.13.10 [place] [phone] Nh dical nal 059 [facility] 2020-02-17 2020-02-17 [facility] [id number] Univers 15:00:00 15:00:00 SENDIL ity of [facility] 2020-02-17 2020-02-17 Orders Doctor TALA 1.2.840.114 [id number] Univers 00:00:00 00:00:00 Only Unassigned, DONNA 350.1.13.10 ity of [place] [facility] 4.2.7.2.686 Rj as [phone] [facility] [address] 2020-02-07 2020-02-07 Outpatient R [facility] [id number] Univers 15:20:00 15:20:00 ity of [facility] 2020-01-27 2020-01-27 Transition Manju Shabazz 1.2.840.114 [id number] Univers 00:00:00 00:00:00 of Care Sun Pérezy 350.1.13.10 it [place] [phone] [facility] [address] 2020-01-19 2020-01-25 [facility] [id number] Univers 18:01:00 14:09:00 MERCY ity [facility] 2020-01-19 2020-01-25 [facility] Jarred Frankie Teresa [facility] 1.2.840.1 14 [id number] Univers 18:01:00 14:09:00 Encounter Heber Contreras 350.1.13.10 it[place] [phone] [facility] [address] [place] 2020-01-19 2020-01-19 [facility] [id number] Univers 17:40:00 17:40:00 KELLEY ity o f [facility] 2020-01-19 2020-01-19 Nurse Nurse, [facility] 1.2 .840.114 [id number] Univers 17:17:45 17:32:45 Visit Gregg Venegas 350.1.13.10 ity of [place] 4.2.7.2.686 [place]j as Professio [phone] [facility] [address] 2020-01-19 2020-01-19 Outpatient R SHANTE, [facility] [id number] Univers 17:30:00 17:30:00 GREGG itelmer of [facility] 2020-01-19 2020-01-19 Letter Doctor TALA 1.2.840.114 [id number] Univers 00:00:00 00:00:00 (Out) Unassigned, DONNA 350.1.13.10 ity of [place] [facility] 4.2.7.2.686 Rj as [phone] [facility] [address] 2019-04-08 2019-04-15 Inpatient CONY, [facility] [id number] Dora 00:00:00 00:00:[address] 2019-03-30 2019-03-30 [id number] [facility] 07:14:00 07:14:00 _A_ [id number] Family Practic e 2018-10-13 2018-10-14 Emergency [facility] 1.2.174.844 [id number] Univers 21:35:22 00:20:00 Basilio S Hillary 350.1.13.10 [place] [phone] [facility] [address] 2018-10-13 2018-10-14 Emergency [facility] 1.2.433.305 [id number] 21:35:22 00:20:00 Basilio S Hillary 350.1.13.10 [place] 4.2.7.2.686 [place] [phone] [facility] 2018-09-27 2018-09-27 Transition Manju Shine 1.2.840.114 [id number] Univers 00:00:00 00:00:00 of Care Joanie Kyrie Gordon 350.1.13.10 i ty [place] [phone] [facility] [address] 2018-09-27 2018-09-27 Transition Manju Shine 1.2.840.114 [id number] 00:00:00 00:00:00 of Care Joanie M Leyva 350.1.13.10 [place] [phone] [facility] 2018-09-21 2018-09-25 [facility] 1.2.840.1 14 [id number] Univers 15:30:48 14:00:00 Encounter Truong Winters 350.1.13.10 ity of [place] 4.2.7.2.686 [facility] [phone] [facility] [address] 2018-09-21 2018-09-25 [facility] 1.2.840.1 14 [id number] 15:30:48 14:00:00 Encounter Truong Winters 350.1.13.10 [place] 4.2.7.2.686 [place] [phone] 081 2018-09-21 2018-09-21 [facility] Nadia AugustineWai [facility] 1.2.8 40.114 [id number] Univers 15:00:00 15:29:00 Encounter Tech, [facility] [place] 3 50.1.13.10 ity of [place] 4.2.7.2.686 [facility] [phone] [facility] [address] 2018-09-21 2018-09-21 [facility] [place] 1.2.840.114 [id number] 15:00:00 15:29:00 Encounter Nadia Hawkins 350.1.13.10 [place] 4.2.7.2.686 [place] [phone] 206 2018-09-21 2018-09-21 Orders Doctor TALA 1.2.840.114 [id number] Univers 00:00:00 00:00:00 Only Unassigned, DONNA 350.1.13.10 [facility] 4.2.7.2.686 Rj [phone] [facility] [address] 2018-09-21 2018-09-21 Orders Doctor TALA 1.2.840.114 [id number] 00:00:00 00:00:00 Only Unassigned, DONNA 350.1.13.10 [facility] 4.2.7.2.686 [id number] [id number] Results Test Description Test Time Test Comments Results Result Comments Source TROPONIN I 2021-03-29 20:14:59 Test Item Value Reference Range Interpretation Comme nts TROPONIN I (test code = 0.026 ng/mL See_Comment [Au tomated message] The 2512631729) system which ge nerated this result tra nsmitted reference range : <=0.034. The reference r milad was not used to int erpret this result as normal/abnormal . BRITTANY (test code = BRITTANY) Reference (Normal) Range (defined by the 99th percentile reference limit): <= 0.034 ng/mL Note: Cardiac troponin begins to rise 3-4 hours after the onset of ischemia. Repeat in 4-6 hours if the sample was drawn within 3-4 hours of the onset of the symptom and found normal. Diagnosis of myocardial injury is made with acute changes in cTn concentrations with at least one serial sample above the 99th percentile upper reference limit (URL), taken together with the patient's clinical presentation. Biotin has been reported to cause a negative bias, interpret results relative to patient's use of biotin. Lab Interpretation Normal (test code = 75194-6) [id number] 20:11:52 Test Item Value Reference Range Interpretation Comments NT-proBNP (test code 95 pg/mL See_Comment [Autom ated = 5213391057) message] The system which generated this result transmitted reference range : <=450. The reference range was not used to interpret this result as normal/abnormal . BRITTANY (test code = BRITTANY) Biotin has been reported to cause a negative bias, interpret results relative to patient's use of biotin. Lab Interpretation Normal (test code = 30855-3) [facility] THRMPLAS [id number] 20:04:51 Test Item Value Reference Range Interpretation Comments APTT Patient (test See_Comment [Automat ed code = 3173-2) message] The system which generated this result transmitted reference range : 23 - 38 Seconds . The reference range was not used to interpr et this result as normal/abnormal . BRITTANY (test code = BRITTANY) The [facility] patient population mean normal value for aPTT is 30 seconds. Lab Interpretation Normal (test code = 45667-7) [facility]OLIC PANEL ([id number])2021-03-29 20:03:10 Test Item Value Reference Range Interpretation Comments NA (test code = 136 mmol/L 135-145 0806244722) K (test code = 4.0 mmol/L 3.5-5.0 3883353573) CL (test code = 98 mmol/L 98-108 9170987439) CO2 TOTAL (test code = 31 mmol/L 23-31 9512850051) AGAP (test code = 2-16 8971470682) BUN (test code = 21 mg/dL 7-23 5993576793) GLUCOSE (test code = 340 mg/dL 70-110 H 2283552682) CREATININE (test code = 0.86 mg/dL 0.50-1.04 3646301573) TOTAL BILI (test code = 0.7 mg/dL 0.1-1.8 6394855963) CALCIUM (test code = 8.8 mg/dL 8.6-10.6 0720420188) T PROTEIN (test code = 7.1 g/dL 6.3-8.2 1957644775) ALBUMIN (test code = 4.2 g/dL 3.5-5.0 4100289926) ALK PHOS (test code = 125 U/L 34-122 H 8477357227) ALTv (test code = 16 U/L 5-35 1742-6) AST(SGOT) (test code = 19 U/L 13-40 9146267109) eGFR (test code = mL/min/1.73m2 1309507931) BRITTANY (test code = BRITTANY) Association of [...] tests). Lab Interpretation Abnormal (test code = 40965-2) [facility] CenterPROT[facility] / [id number] 20:02:29 Test Item Value Reference Range Interpretation Comments PROTIME PATIENT (test See_Comment [Auto mated message] code = 5964-2) The system wh ich generated this result transmitted ref erence range: 12.0 - 1 4.7 Seconds. The re ference range was not u sed to interpret this result as normal/abnor mal. INR (test code = 6301-6) Nor mal INR <1.1; Warfarin Therap eutic range 2.0 to 3. 0 or 2.5 to 3.5, dep ending upon the indica tions. Lab Interpretation (test Normal code = 18256-1) [facility] CenterCBC WITH [id number] 19:45:06 Test Item Value Reference Range Interpretation Comments WBC (test code = See_Comment [Automated 9490-2) message] The sy stem which generated this result transmitted reference range : 4.30 - 11.10 10*3/?L. The reference range was not used to interpret this result as normal/abnormal . RBC (test code = See_Comment [Automated 859-8) message] The sy stem which generated this result transmitted reference range : 3.93 - 5.25 10*6/?L. The reference range was not used to interpret this result as normal/abnormal . HGB (test code = 14.3 g/dL 11.6-15.0 718-7) HCT (test code = 44.9 % 35.7-45.2 4544-3) MCV (test code = 87.2 fL 80.6-95.5 787-2) MCH (test code = 27.8 pg 25.9-32.8 785-6) MCHC (test code = 31.8 g/dL 31.6-35.1 786-4) RDW-SD (test code = 49.3 fL 39.0-49.9 02320-3) RDW-CV (test code = 15.6 % 12.0-15.5 H 788-0) PLT (test code = See_Comment [Automated 777-3) message] The sy stem which generated this result transmitted reference range : 166 - 358 10*3/ ?L. The reference r milad was not used to interpret this result as normal/abnormal . MPV (test code = 10.6 fL 9.5-12.9 75293-4) NRBC/100 WBC (test See_Comment [Automat ed code = 8160482870) message] The system which generated this result transmitted reference range : 0.0 - 10.0 /100 WBCs. The refer ence range was not u sed to interpret th is result as normal/abnormal . NRBC x10^3 (test code <0.01 See_Comment [Auto mated = 2663785205) message] The s ystem which generated this result transmitted reference range : 10*3/?L. The reference range was not used to interpret this result as normal/abnormal . GRAN MAT (NEUT) % 58.0 % (test code = 770-8) IMM GRAN % (test code 0.60 % = 2720149294) LYMPH % (test code = 30.9 % 736-9) MONO % (test code = 7.6 % 5905-5) EOS % (test code = 2.5 % 713-8) BASO % (test code = 0.4 % 706-2) GRAN MAT x10^3(ANC) 4.61 10*3/uL 1.88-7.09 (test code = 2400878838) IMM GRAN x10^3 (test 0.05 10*3/uL 0.00-0.06 code = 9461177418) LYMPH x10^3 (test code 2.45 10*3/uL 1.32-3.29 = 731-0) MONO x10^3 (test code 0.60 10*3/uL 0.33-0.92 = 742-7) EOS x10^3 (test code = 0.20 10*3/uL 0.03-0.39 711-2) BASO x10^3 (test code 0.03 10*3/uL 0.01-0.07 = 704-7) Lab Interpretation Abnormal (test code = 56694-6) [facility]"
[2022-01-12 20:11] LABS: Urine Blood Trace-intact (Negative); Urine Glucose 3+ (Negative); Urine Protein 1+ (Negative); Urine Specific Gravity 1.015 (1.005-1.030); Urine pH 5.5 (5.0-7.0)
[2022-01-12 23:16] LABS: Absolute Lymphocytes (CBC) 2.1 K/uL (0.7-4.9); Hematocrit 37.9 % (36.0-45.0); Lymphocytes % 20.8 % (15.3-44.8); MCV 75.6 fL (80-100); MPV 8.8 fL (7.6-11.3); RBC Red Blood Cell Count 5.01 M/uL (3.86-4.86)
[2022-01-12] MEDS ORDERED: INSULIN -REGULAR HUMAN 50 UNIT/0.5 ML ML ONE (23:16)
[2022-01-12] MEDS ORDERED: FENTANYL CITR 100 MCG/2 ML ONE (23:17)
[2022-01-12 23:44] LABS: Albumin 2.8 g/dL (3.4-5.0); Bilirubin Total 0.3 mg/dL (0.2-1.0); Potassium 4.2 mmol/L (3.5-5.1); Protein, Total 6.7 g/dL (6.4-8.2); Troponin High Sensitivity 9.4 pg/mL (<58.9)
[2022-01-13 01:04] LABS: Urine Bacteria <20 /HPF (<20); Urine Mucus Slight /HPF (None Seen); Urine RBC <5 /HPF (None Seen)
--- NOTE | 2022-01-13 01:22 | EDPHYS ---
Physician Documentation [facility] Name: Francine Lemons Age: 81 yrs Sex: Female : 1940 Arrival Date: 01/12/2022 Time: 19:51 Bed 6 Private MD: MARVIN Physician Chris Robbins HPI: 01/12 23:21 This 81 yrs old Unknown Female presents to ER via Wheelchair with complaints of Leg rt Pain, Abdominal Pain. 23:21 The patient presents with pain, swelling. Onset: The symptoms/episode began/occurred rt chronic. Modifying factors: The symptoms are alleviated by nothing. the symptoms are aggravated by movement, weight bearing. Patient presents to the ED stating that she cannot "control her kidneys." She does report a pain to her epigastrium as well states that she has had a urinary frequency during that time. She reports macerated skin to the groin area. She reports that she has continued swelling to her lower legs with pain and some redness. She denies other acute complaints at this time. Pain is aching nature, nonradiating, no other aggravating or alleviating factors.. Historical: - Allergies: 19:59 Azithromycin; hb 19:59 Iodine; hb 19:59 Prednisone; makes blood sugar really high; hb - PMHx: 19:59 ADD/ADHD; Chronic pain; lymphedema; Anxiety; High Cholesterol; COPD; Hypertension; CHF; hb Diabetes - IDDM; stasis neuropathy; - PSHx: 19:59 hysterectomy; skin graft RLE; hb - Immunization history:: Adult Immunizations not up to date. - Family history:: not pertinent. - Social history:: Smoking status: Patient denies any tobacco usage or history of. ROS: 23:21 Constitutional: Negative for fever, chills, and weight loss, Eyes: Negative for injury, rt pain, redness, and discharge, ENT: Negative for injury, pain, and discharge, Neck: Negative for injury, pain, and swelling, Cardiovascular: Negative for chest pain, palpitations, and edema, Respiratory: Negative for shortness of breath, cough, wheezing, and pleuritic chest pain, Neuro: Negative for headache, weakness, numbness, tingling, and seizure, Psych: Negative for depression, anxiety, suicide ideation, homicidal ideation, and hallucinations. 23:21 Abdomen/GI: Positive for abdominal pain, Negative for nausea and vomiting. 23:21 : Positive for urinary frequency, burning with urination. 23:21 MS/extremity: Positive for pain, swelling. 23:21 Skin: Positive for discoloration, rash. Exam: 23:21 Constitutional: This is a well developed, well nourished patient who is awake, alert, rt and in no acute distress. Head/Face: Normocephalic, atraumatic. Eyes: Pupils equal round and reactive to light, extra-ocular motions intact. Lids and lashes normal. Conjunctiva and sclera are non-icteric and not injected. Cornea within normal limits. Periorbital areas with no swelling, redness, or edema. ENT: Nares patent. No nasal discharge, no septal abnormalities noted. Tympanic membranes are normal and external auditory canals are clear. Oropharynx with no redness, swelling, or masses, exudates, or evidence of obstruction, uvula midline. Mucous membranes moist. Neck: Trachea midline, no thyromegaly or masses palpated, and no cervical lymphadenopathy. Supple, full range of motion without nuchal rigidity, or vertebral point tenderness. No Meningismus. Chest/axilla: Normal chest wall appearance and motion. Nontender with no deformity. No lesions are appreciated. Cardiovascular: Regular rate and rhythm with a normal S1 and S2. No gallops, murmurs, or rubs. Normal PMI, no JVD. No pulse deficits. Respiratory: Lungs have equal breath sounds bilaterally, clear to auscultation and percussion. No rales, rhonchi or wheezes noted. No increased work of breathing, no retractions or nasal flaring. Neuro: Awake and alert, GCS 15, oriented to person, place, time, and situation. Cranial nerves II-XII grossly intact. Motor strength 5/5 in all extremities. Sensory grossly intact. Cerebellar exam normal. Normal gait. Psych: Awake, alert, with orientation to person, place and time. Behavior, mood, and affect are within normal limits. 23:21 ECG was reviewed by the Attending Physician. 23:21 Abdomen/GI: Mild tenderness to the epigastrium without rebound, guarding, distention.. 23:21 Musculoskeletal/extremity: 4+ pitting edema to bilateral lower extremities, chronic skin changes apparent.. 23:21 Skin: Yeast infection noted to the groin area, no obvious cellulitis.. Vital Signs: 19:57 BP 185 / 88; Pulse 82; Resp 18; Temp 97.7; Pulse Ox 98% on R/A; Weight 104.33 kg; hb Height 5 ft. 3 in. (160.02 cm); Pain 9/10; 21:40 BP 188 / 68; Pulse 75; Resp 18; Pulse Ox 98% on R/A; eh3 22:40 BP 153 / 67; Pulse 77; Resp 19; Pulse Ox 97% on R/A; eh3 01/13 00:57 BP 119 / 51; Pulse 73; Resp 16; Pulse Ox 100% ; vc1 01:30 BP 120 / 59; Pulse 75; Resp 19; Pulse Ox 97% ; vc1 02:30 BP 139 / 62; Pulse 73; Resp 15; Pulse Ox 97% ; vc1 01/12 19:57 Body Mass Index 40.74 (104.33 kg, 160.02 cm) hb MDM: 01/12 21:41 Patient medically screened. rt 01/13 02:26 Data reviewed: vital signs, nurses notes, lab test result(s), EKG, radiologic studies. rt Special discussion: I discussed with the patient/guardian in detail that at this point there is no indication for admission to the hospital. It is understood, however, that if the symptoms persist or worsen the patient needs to return immediately for re-evaluation. ED course: . ED course: Patient presents to the ED complaining of increasing urination. She is found to be hyperglycemic, this is improving with insulin administration in the ED. Her labs are otherwise unremarkable. No acute findings on her CT scan despite abdominal pain. Patient does have a lymphedema with chronic changes to the legs, BNP is negative, do not suspect CHF as he etiology. Erythema is not warm, she is not febrile, do not suspect a cellulitis. After discharge, patient complained that her legs were not looked at, I did describe the wounds to the patient while her legs were still covered in great detail. After this, she states that her legs have been like this for many months and she has seen wound care in the outpatient setting. At this time, no further emergent interventions are indicated on her legs. She was informed of this, instructed to follow-up as an outpatient for lymphedema. No indications for admission to the hospital at this time.. 01/12 20:11 Order name: Urine Dipstick-Ancillary; Complete Time: 20:21 EDMS 01/12 20:32 Order name: Urine Microscopic Only; Complete Time: 01:05 kb 01/12 21:53 Order name: CBC with Diff; Complete Time: 23:40 rt 01/12 21:53 Order name: CMP; Complete Time: 00:24 rt 01/12 21:53 Order name: BNP; Complete Time: 00:24 rt 01/12 21:53 Order name: Troponin High Sensitivity; Complete Time: 00:24 rt 01/12 21:53 Order name: CT Abd/Pelvis - IV Contrast Only rt 01/12 22:03 Order name: Glucose, Ancillary Testing; Complete Time: 22:13 EDMS 01/12 23:03 Order name: Abdomen EDMS 01/12 23:08 Order name: Lipase; Complete Time: 00:24 EDMS 01/13 01:29 Order name: Glucose, Ancillary Testing; Complete Time: 02:35 EDMS 01/12 21:53 Order name: EKG; Complete Time: 21:54 rt 01/12 21:53 Order name: EKG - Nurse/Tech; Complete Time: 22:29 rt EC/04 23:21 Rate is 76 beats/min. Rhythm is regular, A flutter with Occasional PVCs. Left axis rt deviation noted. QRS interval is normal. QT interval is normal. No Q waves. Interpreted by me. Administered Medications: 23:10 Drug: fentaNYL (PF) 100 mcg Route: IVP; Site: left antecubital; eh3 23:47 Follow up: Response: Pain is decreased eh3 23:10 Drug: Insulin Regular Human 10 units {Co-Signature: vc1 (Karli Hebert RN).} Route: eh3 Sub-Q; Site: right upper arm; 01/13 02:00 Follow up: Response: No adverse reaction; Blood sugar is lowered vc1 02:14 Drug: Insulin Regular Human 10 units {Co-Signature: vc1 (Karli Hebert RN).} Route: bb Sub-Q; Site: abdomen; Disposition Summary: 01/13/22 01:21 Discharge Ordered Location: Home rt Problem: new rt Symptoms: have improved rt Condition: Stable rt Diagnosis - Candidiasis of other urogenital sites rt - Hyperglycemia, unspecified rt - Unspecified urinary incontinence rt Followup: rt - With: Private Physician - When: 2 - 3 days - Reason: Followup: rt - With: Westley Araiza MD - When: 5 - 6 days - Reason: Discharge Instructions: - Discharge Summary Sheet rt - Hyperglycemia rt - Urinary Incontinence rt - Vaginal Yeast Infection, Adult rt Forms: - Medication Reconciliation Form rt - Thank You Letter rt - Antibiotic Education rt - Prescription Opioid Use rt Prescriptions: - Nystatin-Triamcinolone 100,000-0.1 unit/gram-% Topical Ointment - apply 1 application by TOPICAL route 2 times per day; 1 tube; Refills: 0, rt Product Selection Permitted Signatures: Dispatcher [employer] EDMS Alvina Plata, RN RN bb Mihaela Araujo, RN RN Lacey Frederick RN RN 3 Taylor Cabrales PA-C PAKristyn 4 Chris Robbins MD MD rt Karli Hebert RN vc1 Karli Hebert RN vc1 Corrections: (The following items were deleted from the chart) 01/12 23:03 21:57 Abdomen ordered. EDMS EDMS 23:08 22:16 LIPASE+C.LAB.BRZ ordered. EDMS EDMS 23:45 20:20 Immunization history: Adult Immunizations not up to date, [place] [address] 23:45 20:20 Social history: Smoking status: Patient denies any tobacco usage or history of. [place] [address]
--- NOTE | 2022-01-13 01:22 | ER ---
Nurse's Notes [facility] Name: Francine Lemons Age: 81 yrs Sex: Female : 1940 Arrival Date: 01/12/2022 Time: 19:51 Bed 6 Private MD: Diagnosis: Candidiasis of other urogenital sites;Hyperglycemia, unspecified;Unspecified urinary incontinence Presentation: 01/12 19:57 Chief complaint: Patient states: "My legs hurt and are swollen and I can't control my hb kidneys." Pt c/o urinary incontinence and burning with urination x 3 days, bilateral lower leg pain and swelling for years. Coronavirus screen: At this time, the client does not indicate any symptoms associated with coronavirus-19. Ebola Screen: No symptoms or risks identified at this time. Initial Sepsis Screen: Does the patient meet any 2 criteria? No. Patient's initial sepsis screen is negative. Does the patient have a suspected source of infection? No. Patient's initial sepsis screen is negative. Risk Assessment: Do you want to hurt yourself or someone else? Patient reports no desire to harm self or others. Onset of symptoms is unknown. 19:57 Method Of Arrival: Wheelchair hb 19:57 Acuity: AURELIO 3 hb Historical: - Allergies: 19:59 Azithromycin; hb 19:59 Iodine; hb 19:59 Prednisone; makes blood sugar really high; hb - PMHx: 19:59 ADD/ADHD; Chronic pain; lymphedema; Anxiety; High Cholesterol; COPD; Hypertension; CHF; hb Diabetes - IDDM; stasis neuropathy; - PSHx: 19:59 hysterectomy; skin graft RLE; hb - Immunization history:: Adult Immunizations not up to date. - Family history:: not pertinent. - Social history:: Smoking status: Patient denies any tobacco usage or history of. Screenin:40 Abuse screen: Denies threats or abuse. Denies injuries from another. Nutritional eh3 screening: No deficits noted. Tuberculosis screening: No symptoms or risk factors identified. Fall Risk Secondary diagnosis (15 points) IV access (20 points). Gait- Impaired (20 pts.). Total Meza Fall Scale indicates High Risk Score (45 or more points). Fall prevention measures have been instituted. Side Rails Up X 2 Placed Close to Nursing Station Frequent Obs/Assessments Occuring As available patient and family educated on Fall Prevention Program and Strategies. Assessment: 21:40 General: Appears in no apparent distress. uncomfortable, Behavior is cooperative, eh3 appropriate for age, anxious. Pain: Complains of pain in right leg and left leg. Neuro: Level of Consciousness is awake, alert, obeys commands, Oriented to person, place, time, situation. Cardiovascular: Capillary refill < 3 seconds Patient's skin is warm and dry. Respiratory: Airway is patent Respiratory effort is even, unlabored, Respiratory pattern is regular, symmetrical. GI: Abdomen is round non-distended, Bowel sounds present X 4 quads. Abd is soft and non tender X 4 quads. : Reports burning with urination, incontinence. EENT: No signs and/or symptoms were reported regarding the EENT system. Derm: Wound noted right guo. Musculoskeletal: Circulation, motion, and sensation intact. Range of motion: intact in all extremities, Swelling present in right leg and left leg. 22:40 Reassessment: Patient appears in no apparent distress at this time. Patient and/or eh3 family updated on plan of care and expected duration. Pain level reassessed. Patient is alert, oriented x 3, equal unlabored respirations, skin warm/dry/pink. 01/13 00:00 Reassessment: Patient and/or family updated on plan of care and expected duration. Pain vc1 level reassessed. Patient is alert, oriented x 3, equal unlabored respirations, skin warm/dry/pink. 01:00 Reassessment: Patient and/or family updated on plan of care and expected duration. Pain vc1 level reassessed. Patient is alert, oriented x 3, equal unlabored respirations, skin warm/dry/pink. 02:00 Reassessment: Patient and/or family updated on plan of care and expected duration. Pain vc1 level reassessed. Patient is alert, oriented x 3, equal unlabored respirations, skin warm/dry/pink. 02:40 Reassessment: Attempted to call daughter for transportation home, left a message. vc1 03:00 Reassessment: Patient and/or family updated on plan of care and expected duration. Pain vc1 level reassessed. Patient is alert, oriented x 3, equal unlabored respirations, skin warm/dry/pink. 03:05 Reassessment: attempted to call daughter for transportation. vc1 Vital Signs: 01/12 19:57 BP 185 / 88; Pulse 82; Resp 18; Temp 97.7; Pulse Ox 98% on R/A; Weight 104.33 kg; hb Height 5 ft. 3 in. (160.02 cm); Pain 9/10; 21:40 BP 188 / 68; Pulse 75; Resp 18; Pulse Ox 98% on R/A; eh3 22:40 BP 153 / 67; Pulse 77; Resp 19; Pulse Ox 97% on R/A; eh3 01/13 00:57 BP 119 / 51; Pulse 73; Resp 16; Pulse Ox 100% ; vc1 01:30 BP 120 / 59; Pulse 75; Resp 19; Pulse Ox 97% ; vc1 02:30 BP 139 / 62; Pulse 73; Resp 15; Pulse Ox 97% ; vc1 01/12 19:57 Body Mass Index 40.74 (104.33 kg, 160.02 cm) hb ED Course: 01/12 19:51 Patient arrived in ED. dt4 19:59 Triage completed. hb 20:00 Arm band placed on. hb 21:30 Chris Robbins MD is Attending Physician. rt 21:40 Patient has correct armband on for positive identification. Bed in low position. Call eh3 light in reach. Side rails up X2. Client placed on continuous cardiac and pulse oximetry monitoring. NIBP monitoring applied. Door closed. Noise minimized. Lights dimmed. Warm blanket given. Pillow given. 22:03 Lacey Frederick, PILO is Primary Nurse. eh3 22:48 Inserted saline lock: 20 gauge in left antecubital area, using aseptic technique. Blood oe collected. 23:03 Abdomen In Process Unspecified. EDMS 01/13 01:21 Westley Araiza MD is Referral Physician. rt 02:30 No provider procedures requiring assistance completed. IV discontinued, intact, vc1 bleeding controlled, No redness/swelling at site. Pressure dressing applied. Administered Medications: 01/12 23:10 Drug: fentaNYL (PF) 100 mcg Route: IVP; Site: left antecubital; eh3 23:47 Follow up: Response: Pain is decreased eh3 23:10 Drug: Insulin Regular Human 10 units {Co-Signature: vc1 (Karli Hebert RN).} Route: eh3 Sub-Q; Site: right upper arm; 01/13 02:00 Follow up: Response: No adverse reaction; Blood sugar is lowered vc1 02:14 Drug: Insulin Regular Human 10 units {Co-Signature: vc1 (Karli Hebert RN).} Route: bb Sub-Q; Site: abdomen; Medication: 00:57 VIS not applicable for this client. vc1 Outcome: 01:21 Discharge ordered by MD. rt 03:51 Discharged to home vc1 03:51 Condition: good 03:51 Discharge instructions given to patient, Instructed on discharge instructions, follow up and referral plans. medication usage, Demonstrated understanding of instructions, follow-up care, medications, Prescriptions given X 1. 03:51 Patient left the ED. vc1 Signatures: Dispatcher [employer] EDMS Alvina Plata RN RN bb Baxter, Heather, RN RN hb Espinosa, Orlando oe Calcote, Vanessa, RN RN vc1 Lacey Frederick RN RN 3 Suzanna Arreguin dt4 Chris Robbins MD MD rt Karli Hebert RN vc1 Corrections: (The following items were deleted from the chart) 01/12 23:45 20:20 Immunization history: Adult Immunizations not up to date, 3 3 23:45 20:20 Social history: Smoking status: Patient denies any tobacco usage or history of. 3 3 23:45 20:20 General: Appears in no apparent distress. uncomfortable, Behavior is cooperative, eh3 appropriate for age, anxious, 3 23:45 20:20 Pain: Complains of pain in right leg and left leg 3 3 23:45 20:20 Neuro: Level of Consciousness is awake, alert, obeys commands, Oriented to 3 person, place, time, situation, 3 23:45 20:20 Cardiovascular: Capillary refill < 3 seconds Patient's skin is warm and dry. eh3 3 23:45 20:20 Respiratory: Airway is patent Respiratory effort is even, unlabored, Respiratory 3 pattern is regular, symmetrical, 3 23:45 20:20 Cardiovascular: 3 3 23:45 20:20 GI: Abdomen is round non-distended, Bowel sounds present X 4 quads. Abd is soft eh3 and non tender X 4 quads. eh3 23:45 20:20 : Reports burning with urination, incontinence, eh3 eh3 20:20 EENT: No signs and/or symptoms were reported regarding the EENT system. [place] [id number] : 20:20 Derm: Wound noted right guo [place] [id number] 20:20 Musculoskeletal: Circulation, motion, and sensation intact. Range of motion: 3 intact in all extremities, Swelling present in right leg and left leg 3
[2022-01-13] MEDS ORDERED: INSULIN -REGULAR HUMAN 50 UNIT/0.5 ML ML ONE (02:09)
[2022-01-13 04:01] VITALS: TEMP 97.7
[2022-01-13 04:20] VITALS: O2SAT 97
[2022-01-13 04:21] VITALS: BP 139/62
--- NOTE | 2022-01-13 13:44 | EKG ---
Test Date: 2022-01-12 Test Time: 22:12:45 Benefits Consultant: DUSTIN MEASUREMENT RESULTS: Intervals: Rate: 76 GA: QRSD: 82 QT: 394 QTc: 443 Tatum: P: 82 GA: QRS: -46 T: 17 INTERPRETIVE STATEMENTS: Atrial flutter with variable AV block Left anterior fascicular block Possible Anterolateral infarct, age undetermined Abnormal ECG Compared to ECG 07/16/2019 19:28:03 Ventricular premature complex(es) now present Left anterior fascicular block now present Myocardial infarct finding now present Sinus rhythm no longer present First degree AV block no longer present Left-axis deviation no longer present Electronically Signed On 01-13-22 13:43:53 PET CARE WORKER by Candelario Barrera
--- NOTE | 2022-01-14 14:04 | RAD REPORT ---
EXAM DESCRIPTION: CT - Abdomen Pelvis Wo Contrast - 01/13/2022 6:58 am CLINICAL HISTORY: The patient is 81 years old and is Female; abdominal pain TECHNIQUE: Axial computed tomography images of the abdomen and pelvis without intravenous contrast. Sagittal and coronal reformatted images were created and reviewed. This CT exam was performed usi ng one or more of the following dose reduction techniques: automated exposure control, adjustment o f the mA and/or kV according to patient size, and/or use of iterative reconstruction technique. COMPARISON: CT the abdomen and pelvis September 03, 2018 FINDINGS: LUNG BASES: Unremarkable. No mass. No consolidation. ABDOMEN: LIVER: Homogeneous without focal mass. GALLBLADDER AND BILE DUCTS: High density material is present within the lumen of the gallbladder. There is no gallbladder wall thickening or pericholecystic fluid. There is no ductal dilatation. PANCREAS: Fatty infiltration of pancreas is present. No ductal dilation. SPLEEN: Unremarkable. ADRENALS: Unremarkable. No mass. KIDNEYS AND URETERS: No obstructing stones. No hydronephrosis. No perinephric fluid. STOMACH AND BOWEL: The stomach is decompressed. The small bowel is normal in caliber. Stool is pr esent throughout colon. There is no mucosal thickening or evidence of obstruction. PELVIS: APPENDIX: No findings to suggest acute appendicitis. BLADDER: The bladder is moderately distended. No stones. REPRODUCTIVE: The patient is status post hysterectomy. ABDOMEN and PELVIS: INTRAPERITONEAL SPACE: Unremarkable. No free air. No significant fluid collection. BONES/JOINTS: Degenerative change the bones is noted. SOFT TISSUES: The soft tissues are normal. VASCULATURE: Atherosclerosis of the vasculature is present. No abdominal aortic aneurysm. LYMPH NODES: Unremarkable. No enlarged lymph nodes. IMPRESSION: Findings suggest large calcified gallstone within the gallbladder. No gallbladder wall t hickening or pericholecystic fluid. Electronically signed by: Asia Mora MD 01/12/2022 11:20 PM [employer] Due to temporary technical issues with the PACS/Fluency reporting system, reports are being signed by the in house radiologists without review as a courtesy to insure prompt reporting. The interpreting radiologist is fully responsible for the content of the report.
== END 2022-01-13 03:51 | disposition home or self-care (01) ==
LOC: ER 19:47
DX: B37.49 Other urogenital candidiasis (principal); E11.65 Type 2 diabetes mellitus with hyperglycemia; I10 Essential (primary) hypertension; Z88.1 Allergy status to other antibiotic agents; Z88.8 Allergy status to other drugs, medicaments and biological substances; Z91.048 Other nonmedicinal substance allergy status
CPT/HCPCS: 93005; 85025; 36415; 82947 ×2; 81003; 81015; 84484; 83690; 80053; 83880; 74176; 96372; 96374; 99284; J1815 ×2; J3010